=== PATIENT | female | born 1955 | race African-American/Black ===

== ENCOUNTER 2016-12-05 07:17 | Inpatient (IN) ==
--- NOTE | 2016-12-05 07:57 | EKG Report ---
Stationary ECG Study [facility] Test Date: 12/05/2016 7:56:33 AM Pat Name: COMPA AMAYA Department: Room: Gender: F Replenisher: : 1955 Requested by: Justino Eubanks Order Number: [id number] Reading MD: EROS BEARD Intervals [place] Rate: 90 P: 92 NM: 180 QRS: 84 QRSD: 70 T: 84 QT: 347 QTc: 395 Interpretive Statements SINUS RHYTHM WITH OCCASIONAL VENTRICULAR PREMATURE COMPLEXES WITH FREQUENT SUPRAVENTRICULAR PREMATURE COMPLEXES LOW VOLTAGE IN THE CHEST LEADS Electronically Signed On 12-05-16 08:29:36 CDT by EROS BEARD [email or web address]
[2016-12-05 08:26] LABS: Basophils % 0.1 % (0.0-0.8); Eosinophils # 0.1 10*3/uL (0.0-0.87); Eosinophils % 0.6 % (0.00-10.9); Hematocrit 21.9 VOL% (35.7-47.0); Immature Granulocytes % 1.4 %; Immature Granulocytes Absolute 0.23 #; Lymphocytes # 1.1 10*3/uL (1.4-4.0); Lymphocytes % 6.6 % (21.3-54.2); Mean Corpuscular Hemoglobin 28 PG (27-34); Mean Corpuscular Volume 87.6 FL (87-102); Mean Platelet Volume 10.6 FL (9.6-12.0); Monocytes # 1.4 10*3/uL (0.11-0.8); Neutrophils # 13.1 10*3/uL (1.4-7.4); Neutrophils % 82.3 % (38.7-73.9); Platelet Count 189 T/CUMM (130-400); Red Cell Distribution Width 19.7 % (9.3-17.3)
[2016-12-05 09:04] LABS: Albumin 2.8 G/DL (3.4-5.0); Bilirubin,Total 0.9 MG/DL (0.2-1.0); Calcium 8.2 MG/DL (8.5-10.1); Osmolality,Calculated 275.8 MOS/KG (273-304); Potassium 3.4 MMOL/L (3.5-5.1); Total Protein 6.7 G/DL (6.4-8.3)
--- NOTE | 2016-12-05 09:40 | Emergency Department Note ---
Ruddy Rahman Brooke, am scribing for, and in the presence of, Justino Eubanks Jr., MD 07:48. Raimundo Rahman Marvin Jr., MD, personally performed the services described in this documentation, ascribed by Nel Fox in my presence, and it is both accurate and complete 831 . Arrival - Arrival Chief Complaint: Fever Stated Complaint: general ED Nursing Triage Note: started aching and shivering within 30 min of dialysis at [facility] called for transport Mode of Arrival: Stretcher Source: Patient, EMS, RN Notes Reviewed Time Seen by Provider: 12/05/16 07:36 - History of Present Illness HPI Narrative: Patient is a 61 year old female brought into the ED by EMS with c/o aching all over that started a "few" days ago. She says the aching worsened yesterday and that she was unable to sleep last night. She says she has been having some shortness of breath and that she had to sit up on the side of the bed last night. Patient says the aching is better when she does not move and is worsened with movement. Patient went to dialysis this morning and states that she has an "attack" where she started aching, shaking, and went numb." Patient says she was sent here because "dialysis ordered a blood transfusion but they did not have any blood." She also complains of chills but denies any nausea, vomiting, or fever. She did not call her Primary Care Provider, Dr. Elis Garcia, when these problems started. She has PMHx of CHF, Afib, HTN, anxiety, depression , migraines, dyslipidemia, diabetes, asthma, bronchitis, COPD, obstructive sleep apnea, renal failure(dialysis Wednesday, , Wednesday), GERD, and anemia. Patient's Burlap Spreader is Dr. Lima and Dr. Singh oversees her dialysis. Onset (ago): day(s) ("few") Allergies/Adverse Reactions: Allergies Allergy/AdvReac Type Severity Reaction Status Date / Time codeine Allergy Severe Swelling Verified 04/12/16 19:35 of Lip/Tongue/Throat morphine AdvReac Intermediate Abdominal Verified 04/12/16 19:35 Pain olmesartan [From Benicar] AdvReac Unknown/Unable Verified 09/26/16 11:22 to obtain venlafaxine [From Effexor] AdvReac Abdominal Verified 09/26/16 11:22 Pain Home Medications: Home Medications Medication Instructions Recorded Confirmed Type Atorvastatin [Lipitor] 40 mg PO BEDTIME 12/10/15 11/12/16 History Multivitamin [One Daily] 1 tablet PO QAM 12/10/15 11/12/16 History dilTIAZem HCl [Diltiazem 24Hr ER] 300 mg PO QAM 12/10/15 11/12/16 History Montelukast Tab [Singulair Tab] 10 mg PO BEDTIME 02/02/16 11/12/16 History Insulin Detemir [Levemir FlexPen] 8 unit SUBCUT 1900 02/24/16 11/12/16 History Albuterol Sulfate [Ventolin HFA] 2 puff INH QID PRN 06/16/16 11/12/16 History Calcium Acetate 667 mg PO TID W/MEALS 06/16/16 11/12/16 History Ipratropium/Albuterol Sulfate 3 ml PO QID PRN 06/16/16 11/12/16 History [Iprat-Albut 0.5-3(2.5) mg/3 ml] Gabapentin 300 mg PO BEDTIME 09/26/16 11/12/16 History Methocarbamol 750 mg PO BID PRN 09/26/16 11/12/16 History Fluticasone/Salmeterol 250-50 1 puff INH QAM 10/03/16 11/12/16 History [Advair 250-50] Aspirin EC Tab 162.5 mg PO QAM 11/12/16 11/12/16 History Fluticasone Propionate 1 spray BOTH NARES BID PRN 11/12/16 11/12/16 History [Fluticasone 50 mcg Nasal [place]] Magnesium Oxide 400 mg PO QAM 11/12/16 11/12/16 History Pantoprazole Sodium 40 mg PO QAM 11/12/16 11/12/16 History Acetaminophen Tab [Tylenol Tab] 325 mg PO Q4H PRN #0 tablet 11/26/16 Rx Cefdinir [Omnicef] 300 mg PO BID #14 capsule 11/26/16 Rx Docusate Sodium Cap [Colace Cap] 100 mg PO BID PRN #0 capsule 11/26/16 Rx Dornase Jeffrey [Pulmozyme] 2.5 mg RESP TX RT Q12H #60 vial 11/26/16 Rx Metoprolol Tartrate Tab [Lopressor 25 mg PO BID #60 tablet 11/26/16 Rx Tab] Simethicone Chew Tab [Mylanta Gas 125 mg PO BID PRN #0 tablet 11/26/16 Rx Max Str] Review of System - Review of System 12 point system: reviewed and no additional remarkable complaints except as stated - Review of System Constitutional: Present: chills. Absent: fever Respiratory: Present: other (Short of breath). Absent: respiratory distress Gastrointestinal: Absent: nausea, vomiting Musculoskeletal: Present: other (aching all over) Skin: Absent: rash Medical,Surgical,& Family Hx - Medical History Cardio: History of: Cardiac Dysrhythmia (A-FIB), CHF, Hypertension No history of: [place], Pacemaker, PVD Psychological: History of: Anxiety Disorders, Depression Neurology: History of: Migraine No history of: Seizures, TIA HEENT: History of: Eye Problem (GLASSES/CATARCTS), HEENT Problems (SINUSITIS/ ALLERGIES) Endocrine: History of: Diabetes Mellitus (IDDM), Diabetes Mellitus (NIDDM), Dyslipidemia Respiratory: History of: Asthma, Bronchitis, COPD, Obstructive Sleep Apnea ( doesnt wear cpap), Respiratory Problems (DR. SALAZAR AT [place]) No history of: Pulmonary Embolism Renal: History of: Dialysis (Tu, , Sat), Renal Failure, Renal Problems ( DR. SINGH CHRONIC RENAL INSUFFICIENCY) Gastrointestinal: History of: GERD No history of: Hepatitis Musculoskeletal: History of: Back/Neck Problems Hematology: History of: Anemia No history of: Blood Transfusion Reaction Other: No history of: Anesthesia Reactions, Cancer - Surgical History Cardiac Surgeries: Patient Denies: Vascular Access Devices HEENT Surgeries: Surgical HX of: Eye Surgery (FOR CATARACT LT 03/05/15) Reproductive Surgeries: Surgical HX of;: Section (X1), Hysterectomy ( WITH BSO), Tubal Ligation Orthopedic Surgeries: Surgical HX of;: Orthopedic Surgery (RIGHT KNEE SURG), Spinal Surgery ( BACK SURGERY) - Family History Family History: Reports;: Family Diabetes (MOTHER () and brother), Family Heart Disease (GRANDPARENTS/PARENTS), Family Hypertension (PARENTS), Family Stroke (sister) - Social History Smoking Status: Former smoker Exam Physical Examination: General: Well-developed well-nourished, no apparent distress. Head: Normocephalic, atraumatic. Eyes: PERRLA, EOMI. Nose: No obvious acute deformities or discharge. Mouth: No obvious acute injury. Neck: Full range of motion without obvious pain. No midline tender to palpation. Lymphatic: no significant lymphadenopathy noted. Lungs: Clear to auscultation bilaterally, normal and equal air movement bilaterally, no obvious rales or wheezing. Heart: Tachycardic, no obvious mummers. Abdomen: Soft nontender, nondistended, normal active bowel sounds. Skin: No obivous acute lesions noted Musculoskeletal: No gross deformities. Neurological: No focal findings, cranial nerves II through XII grossly normal. Psychiatric: Slightly anxious : Deferred Vital Signs: Vital Signs Temperature 99.6 F 12/05/16 07:24 Pulse Rate 86 12/05/16 07:24 Respiratory Rate 18 12/05/16 08:29 Blood Pressure 120/56 12/05/16 07:24 O2 Sat by Pulse Oximetry 96 12/05/16 07:24 Course Course Narrative: Differential diagnosis, anemia, chronic renal insufficiency, electrolyte abnormalities, influenza, infection - Reevaluation(s) Reevaluation #1: Unchanged. Patient has symptoms of severe chronic end-stage renal disease and is on dialysis, they did not get her dialysis today. Also symptomatic anemia that is worsening. In addition the chronic congestive heart failure is worsening also. I discussed this patient with the hospitalist service and they will admit her. Previous records were ordered and reviewed. Patient was just discharged on November 26 for congestive heart failure, pneumonia and end-stage renal disease. Time: 09:36 Results - Labs CBC & BMP: 12/05/16 08:07 12/05/16 08:07 Lab Results: I have reviewed the patients labs Labs: Laboratory Tests 12/05/16 08:07 WBC 16.0 H RBC 2.50 L Hgb 7.0 L Hct 21.9 L MCV 87.6 MCH 28 MCHC 32.0 RDW 19.7 H Plt Count 189 MPV 10.6 Neut % (Auto) 82.3 H Lymph % (Auto) 6.6 L Nicholas % (Auto) 9.0 Eos % (Auto) 0.6 Baso % (Auto) 0.1 Neut # (Auto) 13.1 H Lymph # (Auto) 1.1 L Nicholas # (Auto) 1.4 H Eos # (Auto) 0.1 Baso # (Auto) 0.0 Immature Gran % 1.4 Nucleated RBC % 0.0 Immature Gran # 0.23 Nucleated RBCs # 0.00 Microbiology 12/05/16 08:16 Nasal Aspirate Influenza Types A,B Antigen (MIRTA) - Final Negative for Influenza A Ag Negative for Influenza B Ag Laboratory Tests 12/05/16 12/05/16 08:07 08:07 Sodium 137 Potassium 3.4 L Chloride 96 L Carbon Dioxide 27 Anion Gap 17.4 H BUN 22 H Creatinine 4.60 H GFR Calculation 11 BUN/Creatinine Ratio 4.00 L Glucose 106 Calculated Osmolality 275.8 Calcium 8.2 L Total Bilirubin 0.90 AST 42 H ALT 30 Alkaline Phosphatase 340 H Troponin I 0.040 Total Protein 6.7 Albumin 2.8 L Globulin 3.9 H Albumin/Globulin Ratio 0.7 L - EKG EKG results: interpreted by ERMD (Heart rate 90, narrow complex QRS complexes without obvious acute ST changes. Normal sinus rhythm. Interpretation nonspecific EKG without obvious acute changes.) - Diagnostic Findings Procedure: Chest x-ray: image reviewed by me (Bilateral pleural effusions, pulmonary edema, preliminary report) Disposition Clinical Impression: End stage renal disease on dialysis, Congestive heart failure, Symptomatic anemia, Body aches, Neutrophilia Case discussed with: patient Disposition: Still a Patient Condition: Stable Time of Disposition: 09:38
--- NOTE | 2016-12-05 09:55 | XRay Report ---
Referring Physician: Justino Eubanks Exam: XR chest 1V portable Date: December 05, 2016 at 7:59 AM Reason: Shortness of breath Comparison: Chest one view portable and CT chest PE study November 25, 2016 Findings: A right-sided dialysis catheter is again in place. The cardiac silhouette is partially obscured but is likely stable in size. There are opacities within both lungs, mainly at the lung bases. This is concerning for pulmonary edema, atelectasis and possibly pneumonia. There could also be component of scarring. No pneumothorax is identified, but there is mild bilateral pleural fluid. The osseous structures appear stable. Impression: There is increased opacification and pleural fluid at the lower lung zones. PROCEDURE INTERPRETED AT [facility] DEPARTMENT OF RADIOLOGY Final Report Signed by: Dr. Roseanna Centeno
[2016-12-05] MEDS ORDERED: SIMETHICONE CHEW 125 MG TABLET PO PRN (10:24)
[2016-12-05] MEDS ORDERED: ALBUTEROL 2.5 MG/3 ML NEB RESP TX PRN (10:24)
[2016-12-05] MEDS ORDERED: ALBUTEROL/IPRATROPIUM 3 ML NEB RESP TX PRN (10:24)
[2016-12-05] MEDS ORDERED: FLUTICASONE 50 MCG NASAL SPRAY 16 GM BOTTLE BOTH NARES PRN (10:24)
[2016-12-05] MEDS ORDERED: DOCUSATE SODIUM 100 MG CAPSULE PO PRN (10:24)
[2016-12-05] MEDS ORDERED: ACETAMINOPHEN 325 MG TABLET PO PRN (10:24)
[2016-12-05] MEDS ORDERED: SODIUM CHLORIDE 0.9% 250 ML IV PRN (10:52)
--- NOTE | 2016-12-05 10:52 | Hospitalist History & Physical ---
Assessment and Plan (1) Pleural effusion Status: Acute Assessment and plan: The patient is admitted to the hospital with fever aching and left pleural effusion. The patient has a recent graft in the left upper arm but no evidence of infection there. The patient has a dialysis catheter tunneled into the left subclavian space. The patient will be admitted to the hospital and given IV antibiotics including vancomycin and gentamicin. Transfusion is ordered. I coordinated care with Dr. Cruz and he is preparing orders for dialysis. Current Visit: Yes (2) Chronic renal failure Status: Chronic Current Visit: No (3) COPD (chronic obstructive pulmonary disease) Status: Chronic Current Visit: No Qualifiers: COPD type: COPD with acute lower respiratory infection Qualified Code(s): J44.0 - Chronic obstructive pulmonary disease with acute lower respiratory infection (4) ESRD on dialysis Status: Chronic Current Visit: No (5) Symptomatic anemia Status: Acute Current Visit: Yes (6) Body aches Status: Acute Current Visit: Yes History of Present Illness Chief complaint: Chills and fever with shortness of breath History of present illness: Ms. Albert is a 61 year old female who dialyzes on Wednesday. The patient presented to for sending his dialysis today and was to receive blood due to anemia. The patient was apparently started on dialysis and began having fever chills and body aching. Dialysis was discontinued and the patient was transferred to the emergency room at [facility]. The patient has some shortness of breath. The patient has pleural effusion on chest x-ray. I reviewed the case with Dr. Cruz and we will admit the patient for further evaluation and treatment including transfusion and dialysis. Home Medications Medication Instructions Recorded Confirmed Type Atorvastatin [Lipitor] 40 mg PO BEDTIME 12/10/15 12/05/16 History Multivitamin [One Daily] 1 tablet PO QAM 12/10/15 12/05/16 History dilTIAZem HCl [Diltiazem 24Hr ER] 300 mg PO QAM 12/10/15 12/05/16 History Montelukast Tab [Singulair Tab] 10 mg PO BEDTIME 02/02/16 12/05/16 History Insulin Detemir [Levemir FlexPen] 8 unit SUBCUT 1900 02/24/16 12/05/16 History Albuterol Sulfate [Ventolin HFA] 2 puff INH QID PRN 06/16/16 12/05/16 History Calcium Acetate 667 mg PO TID W/MEALS 06/16/16 12/05/16 History Ipratropium/Albuterol Sulfate 3 ml PO QID PRN 06/16/16 12/05/16 History [Iprat-Albut 0.5-3(2.5) mg/3 ml] Gabapentin 300 mg PO BEDTIME 09/26/16 12/05/16 History Methocarbamol 750 mg PO BID PRN 09/26/16 12/05/16 History Fluticasone/Salmeterol 250-50 1 puff INH QAM 10/03/16 12/05/16 History [Advair 250-50] Aspirin EC Tab 162.5 mg PO QAM 11/12/16 12/05/16 History Fluticasone Propionate 1 spray BOTH NARES BID PRN 11/12/16 12/05/16 History [Fluticasone 50 mcg Nasal [place]] Magnesium Oxide 400 mg PO QAM 11/12/16 12/05/16 History Pantoprazole Sodium 40 mg PO QAM 11/12/16 12/05/16 History Acetaminophen Tab [Tylenol Tab] 325 mg PO Q4H PRN #0 tablet 11/26/16 12/05/16 Rx Docusate Sodium Cap [Colace Cap] 100 mg PO BID PRN #0 capsule 11/26/16 12/05/16 Rx Dornase Jeffrey [Pulmozyme] 2.5 mg RESP TX RT Q12H #60 vial 11/26/16 12/05/16 Rx Metoprolol Tartrate Tab [Lopressor 25 mg PO BID #60 tablet 11/26/16 12/05/16 Rx Tab] Simethicone Chew Tab [Mylanta Gas 125 mg PO BID PRN #0 tablet 11/26/16 12/05/16 Rx Max Str] Ondansetron Tab [Zofran Tab] 4 mg PO Q4H 12/05/16 12/05/16 History Allergies Allergy/AdvReac Type Severity Reaction Status Date / Time codeine Allergy Severe Swelling Verified 04/12/16 19:35 of Lip/Tongue/Throat morphine AdvReac Intermediate Abdominal Verified 04/12/16 19:35 Pain olmesartan [From Benicar] AdvReac Unknown/Unable Verified 09/26/16 11:22 to obtain venlafaxine [From Effexor] AdvReac Abdominal Verified 09/26/16 11:22 Pain Medical,Surgical,& Family Hx - Medical History Cardio: History of: Cardiac Dysrhythmia (A-FIB), CHF, Hypertension No history of: [place], Pacemaker, PVD Psychological: History of: Anxiety Disorders, Depression Neurology: History of: Migraine No history of: Seizures, TIA HEENT: History of: Eye Problem (GLASSES/CATARCTS), HEENT Problems (SINUSITIS/ ALLERGIES) Endocrine: History of: Diabetes Mellitus (IDDM), Diabetes Mellitus (NIDDM), Dyslipidemia Respiratory: History of: Asthma, Bronchitis, COPD, Obstructive Sleep Apnea ( doesnt wear cpap), Respiratory Problems (DR. SALAZAR AT [facility]) No history of: Pulmonary Embolism Renal: History of: Dialysis (, , Wed), Renal Failure, Renal Problems ( DR. TOPET[facility] CHRONIC RENAL INSUFFICIENCY) Gastrointestinal: History of: GERD No history of: Hepatitis Musculoskeletal: History of: Back/Neck Problems Hematology: History of: Anemia No history of: Blood Transfusion Reaction Other: No history of: Anesthesia Reactions, Cancer - Surgical History Cardiac Surgeries: Patient Denies: Vascular Access Devices HEENT Surgeries: Surgical HX of: Eye Surgery (FOR CATARACT LT 03/05/15) Reproductive Surgeries: Surgical HX of;: Section (X1), Hysterectomy ( WITH BSO), Tubal Ligation Orthopedic Surgeries: Surgical HX of;: Orthopedic Surgery (RIGHT KNEE SURG), Spinal Surgery ( BACK SURGERY) - Family History Family History: Reports;: Family Diabetes (MOTHER () and brother), Family Heart Disease (GRANDPARENTS/PARENTS), Family Hypertension (PARENTS), Family Stroke (sister) - Social History Smoking Status: Former smoker Marital Status: Lives With:: Children Functional capacity: independent ambulation 12 point system: reviewed and no additional remarkable complaints except as stated Exam - Constitutional Vitals: Period Temp Pulse Resp BP Sys/Gonzalez Pulse Ox Last 24 Hr 99.6 F 78-92 18-22 107-120/54-80 96-98 Exam: Constitutional System: Mild distress. No tremulousness. Some dyspnea Head: Normocephalic, atraumatic. Ears, Nose and Throat System: No evidence of Otitis or Mastoiditis. No epistaxis or discharge Eyes System: Pupils equal, round, and reactive. Extraocular muscles intact. Neck: Supple, without adenopathy, 2+ jugular venous distention. No thyromegaly , neck mass, or prior surgery apparent. Respiratory System: Chest reduced breath sounds left and right bases to auscultation. Cardiovascular System: Heart with regular rate and rhythm. No murmur. GI System: Abdomen soft, nontender. Normo active bowel sounds present. Musculoskeletal System: limbs with no pedal edema. Full distal pulses. Neurological System: No discernable sensory deficit. No aphasia Psychiatric System: Conversation is rational Results - Labs CBC & BMP: 12/05/16 08:07 12/05/16 08:07 Lab Results: I have reviewed the past 24 hour labs
[2016-12-05] MEDS ORDERED: VANCOMYCIN INJ 1,000 MG in SODIUM CHLORIDE 0.9% 250 ML IV PRN (11:50)
[2016-12-05] MEDS ORDERED: GENTAMICIN INJ 100 MG in PREMIX 1 EACH IV PRN (11:51)
--- NOTE | 2016-12-05 11:53 | Nephrology Consult Note ---
History of Present Illness Chief complaint: ESRD. SOB History of present illness: Ms. Albert is a 61 year old female with end-stage renal disease and recurrent episodes of volume overload. She presented today for dialysis at the outpatient unit became short of breath and mildly hypotensive and requested transfer to the hospital. Chest x-ray here demonstrates bilateral pleural effusions and evidence of pulmonary volume overload. Her chest exhibits bibasilar crackles and decreased breath sounds over the bases. She has no pericardial rub and no gallop. No edema of the extremities is noted. Her hematocrit is 21%. She reports recent nosebleed. Impression: Volume overload #2 symptomatic anemia #3 end-stage renal disease Plan empiric antibiotics pending blood cultures. Aggressive fluid removal with dialysis. Transfusion of 2 units packed red cells. Home Medications Medication Instructions Recorded Confirmed Type Atorvastatin [Lipitor] 40 mg PO BEDTIME 12/10/15 12/05/16 History Multivitamin [One Daily] 1 tablet PO QAM 12/10/15 12/05/16 History dilTIAZem HCl [Diltiazem 24Hr ER] 300 mg PO QAM 12/10/15 12/05/16 History Montelukast Tab [Singulair Tab] 10 mg PO BEDTIME 02/02/16 12/05/16 History Insulin Detemir [Levemir FlexPen] 8 unit SUBCUT 1900 02/24/16 12/05/16 History Albuterol Sulfate [Ventolin HFA] 2 puff INH QID PRN 06/16/16 12/05/16 History Calcium Acetate 667 mg PO TID W/MEALS 06/16/16 12/05/16 History Ipratropium/Albuterol Sulfate 3 ml PO QID PRN 06/16/16 12/05/16 History [Iprat-Albut 0.5-3(2.5) mg/3 ml] Gabapentin 300 mg PO BEDTIME 09/26/16 12/05/16 History Methocarbamol 750 mg PO BID PRN 09/26/16 12/05/16 History Fluticasone/Salmeterol 250-50 1 puff INH QAM 10/03/16 12/05/16 History [Advair 250-50] Aspirin EC Tab 162.5 mg PO QAM 11/12/16 12/05/16 History Fluticasone Propionate 1 spray BOTH NARES BID PRN 11/12/16 12/05/16 History [Fluticasone 50 mcg Nasal [place]] Magnesium Oxide 400 mg PO QAM 11/12/16 12/05/16 History Pantoprazole Sodium 40 mg PO QAM 11/12/16 12/05/16 History Acetaminophen Tab [Tylenol Tab] 325 mg PO Q4H PRN #0 tablet 11/26/16 12/05/16 Rx Docusate Sodium Cap [Colace Cap] 100 mg PO BID PRN #0 capsule 11/26/16 12/05/16 Rx Dornase Jeffrey [Pulmozyme] 2.5 mg RESP TX RT Q12H #60 vial 11/26/16 12/05/16 Rx Metoprolol Tartrate Tab [Lopressor 25 mg PO BID #60 tablet 11/26/16 12/05/16 Rx Tab] Simethicone Chew Tab [Mylanta Gas 125 mg PO BID PRN #0 tablet 11/26/16 12/05/16 Rx Max Str] Ondansetron Tab [Zofran Tab] 4 mg PO Q4H 12/05/16 12/05/16 History Allergies Allergy/AdvReac Type Severity Reaction Status Date / Time codeine Allergy Severe Swelling Verified 04/12/16 19:35 of Lip/Tongue/Throat morphine AdvReac Intermediate Abdominal Verified 04/12/16 19:35 Pain olmesartan [From Benicar] AdvReac Unknown/Unable Verified 09/26/16 11:22 to obtain venlafaxine [From Effexor] AdvReac Abdominal Verified 09/26/16 11:22 Pain Medical,Surgical,& Family Hx - Medical History Cardio: History of: Cardiac Dysrhythmia (A-FIB), CHF, Hypertension No history of: [place], Pacemaker, PVD Psychological: History of: Anxiety Disorders, Depression Neurology: History of: Migraine No history of: Seizures, TIA HEENT: History of: Eye Problem (GLASSES/CATARCTS), HEENT Problems (SINUSITIS/ ALLERGIES) Endocrine: History of: Diabetes Mellitus (IDDM), Diabetes Mellitus (NIDDM), Dyslipidemia Respiratory: History of: Asthma, Bronchitis, COPD, Obstructive Sleep Apnea ( doesnt wear cpap), Respiratory Problems (DR. SALAZAR AT [place]) No history of: Pulmonary Embolism Renal: History of: Dialysis (Tues, Thurs, Sat), Renal Failure, Renal Problems ( DR. TOPETE CHRONIC RENAL INSUFFICIENCY) Gastrointestinal: History of: GERD No history of: Hepatitis Musculoskeletal: History of: Back/Neck Problems Hematology: History of: Anemia No history of: Blood Transfusion Reaction Other: No history of: Anesthesia Reactions, Cancer - Surgical History Cardiac Surgeries: Patient Denies: Vascular Access Devices HEENT Surgeries: Surgical HX of: Eye Surgery (FOR CATARACT LT 03/05/15) Reproductive Surgeries: Surgical HX of;: Section (X1), Hysterectomy ( WITH BSO), Tubal Ligation Orthopedic Surgeries: Surgical HX of;: Orthopedic Surgery (RIGHT KNEE SURG), Spinal Surgery ( BACK SURGERY) - Family History Family History: Reports;: Family Diabetes (MOTHER () and brother), Family Heart Disease (GRANDPARENTS/PARENTS), Family Hypertension (PARENTS), Family Stroke (sister) - Social History Smoking Status: Former smoker Review of Systems 12 point system: reviewed and no additional remarkable complaints except as stated Exam - Vital Signs Vital signs: Period Temp Pulse Resp BP Sys/Gonzalez Pulse Ox Last 24 Hr 78-79 21-22 107-116/65-80 96 - General Appearance General appearance: well-developed, well-nourished, appears started age EENT: ATNC Neck: no JVD, no thyromegaly, no carotid bruit, supple Respiratory: no kyphosis, no scoliosis Cardiology: no murmurs, no rub, no gallops, no edema, regular rate, regular rhythm, normal S1, normal S2 Gastrointestinal: normoactive bowel sounds Integumentary: no rash, warm and dry Neurologic: no focal deficit, no asterixis, alert and oriented x3, reflexes 2+ and symmetric, gait normal, strength 5/5 Musculoskeletal: no deformities, no erythema, no cyanosis, no clubbing Psychiatric: mood/affect appropriate, cooperative Results - Labs CBC & BMP: 12/05/16 08:07 12/05/16 08:07 Assessment and Plan - Time spent with patient Time spent with patient: Greater than 30 minutes (1) End stage renal disease Status: Chronic Current Visit: No (2) Dyspnea Status: Resolved Assessment and plan: Volume overload and anemia. Dialysis to remove fluid and transfuse. EF of left ventricle 65% with Echo last month Current Visit: No Specialty Discharge - Follow Up or Referrals - Speciality Discharge Instructions Nephrology Instructions: Dialyze to remove volume and transfuse.
--- NOTE | 2016-12-05 11:57 | Dialysis Note ---
Dialysis Note - Dialysis Note Ms. Albert is seen during hemodialysis. We are removing 4 kg of volume in giving 2 units packed red cells. She should feel better after that breathing much better. If she continues to need oxygen she may benefit from mask oxygen rather than nasal prongs with her history of nosebleed.
[2016-12-05] MEDS ORDERED: GENTAMICIN INJ 100 MG in PREMIX 1 EACH IV ONE (12:00)
[2016-12-05] MEDS ORDERED: VANCOMYCIN INJ 1,000 MG in SODIUM CHLORIDE 0.9% 250 ML IV ONE (13:00)
[2016-12-05] MEDS: ENOXAPARIN 30 MG/0.3 ML SYRINGE SUBCUT SCH (15:19)
[2016-12-05] MEDS: ONDANSETRON 4 MG TABLET PO SCH ×4 (15:19→23:50)
[2016-12-05] MEDS: PANTOPRAZOLE 40 MG TABLET PO SCH (15:19)
[2016-12-05] MEDS: CALCIUM ACETATE 667 MG CAPSULE PO SCH ×2 (15:20→18:55)
[2016-12-05] MEDS: INSULIN GLARGINE 100 UNIT/ML SUBCUT SCH (19:05)
[2016-12-05] MEDS: GABAPENTIN 300 MG CAPSULE PO SCH (20:57)
[2016-12-05] MEDS: ATORVASTATIN 40 MG TABLET PO SCH (20:57)
[2016-12-05] MEDS: MONTELUKAST 10 MG TABLET PO SCH (20:58)
[2016-12-05] MEDS: METOPROLOL TARTRATE 100 MG TABLET PO SCH (20:58)
[2016-12-05] MEDS: METHOCARBAMOL 750 MG TABLET PO PRN (21:01)
[2016-12-05] MEDS: DORNASE ALFA 2.5 MG/2.5 ML VIAL RESP TX SCH (21:15)
[2016-12-06] MEDS: ONDANSETRON 4 MG TABLET PO SCH ×6 (04:52→22:43)
[2016-12-06 07:00] LABS: Basophils % 0.3 % (0.0-0.8); Eosinophils # 0.2 10*3/uL (0.0-0.87); Eosinophils % 2.1 % (0.00-10.9); Hematocrit 24.6 VOL% (35.7-47.0); Immature Granulocytes % 0.9 %; Immature Granulocytes Absolute 0.07 #; Lymphocytes # 1.1 10*3/uL (1.4-4.0); Mean Corpuscular HGB Conc 32.5 GM/DL (32-36); Mean Corpuscular Hemoglobin 28 PG (27-34); Mean Platelet Volume 11.4 FL (9.6-12.0); Monocytes # 1.5 10*3/uL (0.11-0.8); Monocytes % 19.1 % (1.7-12.7); Neutrophils # 4.8 10*3/uL (1.4-7.4); Neutrophils % 62.6 % (38.7-73.9); Platelet Count 154 T/CUMM (130-400); Red Blood Count 2.86 MC/CUMM (3.8-5.5); White Blood Count 7.6 T/CUMM (4-12)
[2016-12-06] MEDS: DORNASE ALFA 2.5 MG/2.5 ML VIAL RESP TX SCH ×2 (07:29→19:10)
[2016-12-06 07:40] LABS: Magnesium 1.9 MG/DL (1.8-2.4); Osmolality,Calculated 276.5 MOS/KG (273-304); Potassium 3.6 MMOL/L (3.5-5.1); Troponin I Only 0.039 NG/ML (0.00-0.045)
[2016-12-06 07:54] LABS: Eosinophils 1 % (0-10); Hypochromasia 1+; Lymphocytes 12 % (20-55); Platelet Estimate Normal; Segmented Neutrophils 71 % (50-85); Total Cells Counted 100
[2016-12-06] MEDS ORDERED: ONDANSETRON 4 MG/2 ML VIAL IV ONE (08:23)
[2016-12-06] MEDS: MAGNESIUM OXIDE 400 MG TABLET PO SCH (08:34)
[2016-12-06] MEDS: METOPROLOL TARTRATE 100 MG TABLET PO SCH ×2 (08:34→20:58)
[2016-12-06] MEDS: MULTIVITAMIN (CENTRUM) TABLET PO SCH (08:34)
[2016-12-06] MEDS: CALCIUM ACETATE 667 MG CAPSULE PO SCH ×3 (08:34→17:36)
[2016-12-06] MEDS: ASPIRIN EC 325 MG TABLET PO SCH (08:35)
[2016-12-06] MEDS: FLUTICASONE/SALMETEROL 250-50 DISKUS 14 DOSE INH SCH (08:35)
[2016-12-06] MEDS: DILTIAZEM CD 300 MG CAPSULE PO SCH (08:35)
[2016-12-06] MEDS: PANTOPRAZOLE 40 MG TABLET PO SCH (08:35)
--- NOTE | 2016-12-06 09:00 | EKG Report ---
Stationary ECG Study [facility] Test Date: 12/06/2016 7:36:18 AM Pat Name: COMPA AMAYA Department: Room: 234 Gender: F Watch Commander: : 1955 Requested by: Mathew Kan Order Number: [id number] Reading MD: SADIE SAAB Intervals [place] Rate: 111 P: 257 [place]: 135 QRS: 67 QRSD: 84 T: 95 QT: 338 QTc: 404 Interpretive Statements JUNCTIONAL TACHYCARDIA At 111 bpm NST Electronically Signed On 12-08-16 13:27:23 CDT by SADIE SAAB [email or web address]
--- NOTE | 2016-12-06 10:22 | XRay Report ---
Referring Physician: Mathew Kan Exam: XR chest 1V portable Date: December 06, 2016 at 6:00 AM Reason: Follow-up pleural effusion Comparison: Chest one view portable December 05, 2016 Findings: A right-sided dialysis catheter is again in place. The cardiac silhouette is again enlarged, and there is persistent elevation of the right hemidiaphragm. There are scattered opacities within both lungs. This is concerning for pulmonary edema, atelectasis and possibly pneumonia. There may also be a component of scarring. No pneumothorax is identified, but there may be minimal bilateral pleural fluid. The osseous structures appear stable. Impression: There are again scattered opacities throughout both lungs, but the opacities have improved within both lower lung zones. Decreased bilateral pleural fluid is also suspected. PROCEDURE INTERPRETED AT [facility] DEPARTMENT OF RADIOLOGY Final Report Signed by: Dr. Roseanna Centeno
--- NOTE | 2016-12-06 10:34 | Nephrology Progress Note ---
Nephrology - PN: Subj Interval history: Ms. Albert is seen in follow-up of her end-stage renal disease with volume overload and anemia. She is improved following yesterday's dialysis. She will need to dialyze again tomorrow to get closer to her dry weight. Will ultrafilter her and should be able to further clear her lungs and work toward decreasing her pleural effusions. She will likely be able to be discharged following tomorrow's dialysis. Exam (PN)-Nephrology - Vital Signs Vital signs: Period Temp Pulse Resp BP Sys/Gonzalez Pulse Ox Last 24 Hr 97.2 F-99.5 F 75-132 17-21 100-137/61-89 91-100 - Lab 12/06/16 04:58 12/06/16 04:58 Most recent lab results Calcium 8.0 MG/DL (8.5-10.1) L 12/06/16 04:58 Magnesium 1.9 MG/DL (1.8-2.4) 12/06/16 04:58 Assessment and Plan (1) End stage renal disease Status: Chronic Current Visit: No
--- NOTE | 2016-12-06 11:27 | Hospitalist Progress Note ---
Assessment and Plan (1) End stage renal disease on dialysis Status: Acute Assessment and plan: Impression: 1. End-stage renal disease with pulmonary vascular congestion and effusions. This is improving Plan: Continue dialysis in the morning. She can likely be discharged after that. This note was completed using [employer] voice recognition software. There may be sheet heater errors as a result. Current Visit: Yes Hospitalist: Subjective Interval history: Follow-up end-stage renal disease and pulmonary vascular congestion with effusions. The patient says that she is better. Her chest x-ray looks better as well. I spoke with nephrology. The plan will be to dialyze her one more time in the morning, and then plan on discharge after that. Exam - Constitutional Vitals: Period Temp Pulse Resp BP Sys/Gonzalez Pulse Ox Last 24 Hr 97.2 F-99.5 F 75-132 17-21 100-137/61-89 91-100 Vital signs are noted above. Heart is regular with no murmur. She has bilateral rales but no wheezes. Abdomen is soft and nontender. She is awake and alert Results - Labs CBC & BMP: 12/06/16 04:58 12/06/16 04:58
[2016-12-06] MEDS: ENOXAPARIN 30 MG/0.3 ML SYRINGE SUBCUT SCH (11:49)
[2016-12-06] MEDS: INSULIN GLARGINE 100 UNIT/ML SUBCUT SCH (20:52)
[2016-12-06] MEDS: GABAPENTIN 300 MG CAPSULE PO SCH (20:53)
[2016-12-06] MEDS: MONTELUKAST 10 MG TABLET PO SCH (20:53)
[2016-12-06] MEDS: METHOCARBAMOL 750 MG TABLET PO PRN (20:53)
[2016-12-06] MEDS: ATORVASTATIN 40 MG TABLET PO SCH (20:53)
[2016-12-07] MEDS: ONDANSETRON 4 MG TABLET PO SCH ×4 (03:26→14:02)
[2016-12-07] MEDS: DORNASE ALFA 2.5 MG/2.5 ML VIAL RESP TX SCH (07:08)
[2016-12-07] MEDS: CALCIUM ACETATE 667 MG CAPSULE PO SCH ×2 (09:41→13:56)
--- NOTE | 2016-12-07 10:10 | Dialysis Note ---
Dialysis Note - Dialysis Note seen during hemodialysis. She is ultrafiltering today to get her volume down. She is breathing much better than she did on admission. We have dropped her dry weight and communicated that with the outpatient unit. I think that she will be able to be discharged today after dialysis and can go back to dialysis tomorrow as an outpatient.
--- NOTE | 2016-12-07 12:42 | Discharge Summary ---
Hospital Course - Hospital Course Hospital Course: Ms. Albert presented from dialysis with chills, fever and shortness of breath. She was found to have possible pneumonia was initiated by the admitting physician on vancomycin and gentamicin. She was seen in consultation by nephrology who continued hemodialysis. Patient continued IV antibiotics during her hospital stay with resolution of her fever and elevated white blood cell count. Follow-up chest x-ray showed improving pleural effusion and bilateral opacities. She will continue Levaquin at discharge. By discharge she had met maximum benefit of hospitalization. I spent 40 minutes coordinating this discharge. - Time spent with patient Time with patient DS: Greater than 30 minutes Discharge Plan - Discharge Data Disposition: Disch To Home/Self Care Condition at Discharge: Stable Discharge Diet: advance to your usual diet Activity: resume usual activities as tolerated Hygiene: no restrictions Weight Bearing at Discharge: full weight bearing - Discharge Medications New Levofloxacin Tab [Levaquin Tab] 500 mg PO Q48H #5 tablet Continue Multivitamin [One Daily] 1 tablet PO QAM Atorvastatin [Lipitor] 40 mg PO BEDTIME dilTIAZem HCl [Diltiazem 24Hr ER] 300 mg PO QAM Montelukast Tab [Singulair Tab] 10 mg PO BEDTIME Insulin Detemir [Levemir FlexPen] 8 unit SUBCUT 1900 Albuterol Sulfate [Ventolin HFA] 2 puff INH QID PRN PRN Reason: Shortness Of Breath/Wheezing Calcium Acetate 667 mg PO TID W/MEALS Ipratropium/Albuterol Sulfate [Iprat-Albut 0.5-3(2.5) mg/3 ml] 3 ml PO QID PRN PRN Reason: Shortness Of Breath Gabapentin 300 mg PO BEDTIME Aspirin EC Tab 162.5 mg PO QAM Fluticasone Propionate [Fluticasone 50 mcg Nasal [place]] 1 spray BOTH NARES BID PRN PRN Reason: Allergy Symptoms Magnesium Oxide 400 mg PO QAM Pantoprazole Sodium 40 mg PO QAM Acetaminophen Tab [Tylenol Tab] 325 mg PO Q4H PRN #0 tablet PRN Reason: fever, headache/body aches Docusate Sodium Cap [Colace Cap] 100 mg PO BID PRN #0 capsule PRN Reason: Constipation Dornase Jeffrey [Pulmozyme] 2.5 mg RESP TX RT Q12H #60 vial Metoprolol Tartrate Tab [Lopressor Tab] 25 mg PO BID #60 tablet Ondansetron Tab [Zofran Tab] 4 mg PO Q4H Methocarbamol 750 mg PO BID PRN PRN Reason: MUSCLE SPASMS Fluticasone/Salmeterol 250-50 [Advair 250-50] 1 puff INH QAM Simethicone Chew Tab [Mylanta Gas Max Str] 125 mg PO BID PRN #0 tablet PRN Reason: Gas - Follow Up or Referral - Forms/Instructions Exam - Constitutional Vitals: Period Temp Pulse Resp BP Sys/Gonzalez Pulse Ox Last 24 Hr 98.1 F-99.6 F 65-102 16-20 97-123/56-71 92-99 General appearance: normal weight, no acute distress - Head Head exam: Present: normal inspection, normocephalic, atraumatic - Eye Eye exam: Present: EOMI Pupils: Present: JOSE - ENT ENT exam: Present: normal exam - Neck Neck exam: Present: normal inspection - Respiratory Respiratory exam: Present: clear to auscultation bilaterally. Absent: accessory muscle use, prolonged expiratory phase, wheezes - Cardiovascular Cardiovascular exam: Present: regular rate and rhythm. Absent: bradycardia, irregular rhythm, systolic murmur - GI/Abdominal GI/Abdominal exam: Present: normal bowel sounds. Absent: ascites, distended, hypoactive bowel sounds, tenderness - Extremities Exam Extremities exam: Present: normal inspection Discharge Results Procedures and tests throughout hospitalization: Pending Orders 12/05/16 10:52 Urine Culture Routine 12/05/16 15:13 Blood Culture Routine Labs on day of discharge: Labs from last 24 hours 12/07/16 12/07/16 12/06/16 11:24 07:32 20:51 POC Glucose 100 102 207 H 12/06/16 18:13 POC Glucose 180 H Preliminary micro results at discharge 12/05/16 15:13 Blood Culture - Preliminary Blood No growth at 1 day 12/05/16 15:13 Blood Culture - Preliminary Blood No growth at 1 day DS: Provider Date of admission: 12/05/16 09:58 Primary care physician: . No PCP Attending physician on admission: Mathew Kan MD Consults: 12/05/16 10:52 Consult to Physician [CONS] Routine Comment: esrd Consulting Provider: Octavio Cruz Person Notified: Dr. Cruz Date Notified: 12/05/16 Consult Notification Comment: Dr. Cruz saw patient in dialysis 12/05/16 11:40 Consult to Pharmacy [CONS] Routine Reason for Pharmacy Consult: Dose/Manage Vancomycin Dose/Manage Gentamicin 12/05/16 13:56 Consult to Dietitian [CONS] Routine Reason for Dietitian: Other 12/05/16 14:00 Consult to Pastoral Services [CONS] Routine Comment: Pastoral Screen: Request Manager Supply Visit Pastoral Screen Source of Request: Patient Discharging clinician: Lavern Persaud MD Expected date of discharge: 12/07/16
[2016-12-07] MEDS ORDERED: VANCOMYCIN INJ 1,000 MG in SODIUM CHLORIDE 0.9% 250 ML IV ONE (13:00)
[2016-12-07] MEDS: ASPIRIN EC 325 MG TABLET PO SCH (13:55)
[2016-12-07] MEDS: FLUTICASONE/SALMETEROL 250-50 DISKUS 14 DOSE INH SCH (13:55)
[2016-12-07] MEDS: METHOCARBAMOL 750 MG TABLET PO PRN (13:55)
[2016-12-07] MEDS: ENOXAPARIN 30 MG/0.3 ML SYRINGE SUBCUT SCH (13:56)
[2016-12-07] MEDS: MAGNESIUM OXIDE 400 MG TABLET PO SCH (13:56)
[2016-12-07] MEDS: MULTIVITAMIN (CENTRUM) TABLET PO SCH (13:56)
[2016-12-07] MEDS: DILTIAZEM CD 300 MG CAPSULE PO SCH (13:56)
[2016-12-07] MEDS: PANTOPRAZOLE 40 MG TABLET PO SCH (13:56)
[2016-12-07] MEDS: METOPROLOL TARTRATE 100 MG TABLET PO SCH (14:00)
[2016-12-07 14:01] VITALS: BP 120/60
[2016-12-07] MEDS ORDERED: GENTAMICIN INJ 100 MG in PREMIX 1 EACH IV ONE (15:00)
== END 2016-12-07 16:30 | disposition home or self-care (01) | DRG 190 ==
LOC: EDUNIT# → EDBD → N.ED 07:17 → N.EDINP 09:58 → SUATTDRO 09:58 → N.2E 10:29
PROVIDERS: ADMIT Internal Medicine; ATTEND Internal Medicine

== ENCOUNTER 2016-12-24 10:52 | Inpatient (IN) ==
[2016-12-24] MEDS ORDERED: NITROGLYCERIN 2% OINT 1 INCH/GM PACK TOP STA (11:10)
[2016-12-24] MEDS ORDERED: DILTIAZEM 50 MG/10 ML VIAL IV STA (11:10)
[2016-12-24] MEDS ORDERED: ONDANSETRON 4 MG/2 ML VIAL IV STA (11:10)
[2016-12-24] MEDS ORDERED: DILTIAZEM 50 MG/10 ML VIAL IV ONE (11:26)
[2016-12-24] MEDS ORDERED: NITROGLYCERIN 2% OINT 1 INCH/GM PACK TOP ONE (11:26)
[2016-12-24] MEDS ORDERED: ONDANSETRON 4 MG/2 ML VIAL ONE (11:26)
[2016-12-24 11:41] LABS: Basophils % 0.3 % (0.0-0.8); Eosinophils # 0.2 10*3/uL (0.0-0.87); Eosinophils % 1.6 % (0.00-10.9); Hematocrit 25.5 VOL% (35.7-47.0); Hemoglobin 8.3 GM/DL (12.0-16.0); Immature Granulocytes % 0.7 %; Immature Granulocytes Absolute 0.07 #; Lymphocytes # 1.6 10*3/uL (1.4-4.0); Lymphocytes % 15.8 % (21.3-54.2); Mean Corpuscular HGB Conc 32.5 GM/DL (32-36); Mean Corpuscular Hemoglobin 28 PG (27-34); Mean Corpuscular Volume 85.3 FL (87-102); Mean Platelet Volume 9.8 FL (9.6-12.0); Monocytes # 1.1 10*3/uL (0.11-0.8); Monocytes % 10.2 % (1.7-12.7); NRBC # 0.05 10*3/uL; Neutrophils # 7.4 10*3/uL (1.4-7.4); Neutrophils % 71.4 % (38.7-73.9); Platelet Count 268 T/CUMM (130-400); Red Blood Count 2.99 MC/CUMM (3.8-5.5); Red Cell Distribution Width 18.6 % (9.3-17.3); White Blood Count 10.3 T/CUMM (4-12)
[2016-12-24 11:53] LABS: INR 1.3; PT Patient Result 13.9 SECS
[2016-12-24 12:08] LABS: Partial Thromboplastin Time 85.3 SECS (0-40)
[2016-12-24 12:19] LABS: Albumin 2.6 G/DL (3.4-5.0); Bilirubin,Total 0.7 MG/DL (0.2-1.0); Calcium 8.5 MG/DL (8.5-10.1); Osmolality,Calculated 269.7 MOS/KG (273-304); Potassium 3.4 MMOL/L (3.5-5.1); Thyroid Stimulating Hormone 0.514 uIU/ml (0.358-3.74); Troponin I Only 0.019 NG/ML (0.00-0.045)
--- NOTE | 2016-12-24 12:23 | Emergency Department Note ---
Arrival - Arrival Chief Complaint: Arrhythmia/Palpitations Stated Complaint: heart beating too fast ED Nursing Triage Note: Pt c/o High HR, CP, and SOB since yesterday. Mode of Arrival: Wheelchair Limitations: No Limitations Source: Patient Time Seen by Provider: 12/24/16 11:10 - History of Present Illness HPI Narrative: This 61-year-old black female presents with abrupt onset of rapid heartbeat associated with some shortness of breath and left-sided chest pain. Although she has some mild nausea she denies vomiting or diaphoresis. The patient dialyzes [id number] and had onset of symptoms immediately post dialysis. The patient most recently was hospitalized here 3 weeks ago for pneumonia by the hospitalist service. She does state she has a history of rapid heartbeats in the past and is currently on diltiazem. Also of note she is on thyroid replacement but as far she knows her levels of thyroid hormone are therapeutic. She denies any hemoptysis or pleuritic nature to her pain. Despite her rapid heart rate she is hemodynamically stable. Onset (ago): hour(s) (Patient presents 1 hour post onset of symptoms) Allergies/Adverse Reactions: Allergies Allergy/AdvReac Type Severity Reaction Status Date / Time codeine Allergy Severe Swelling Verified 04/12/16 19:35 of Lip/Tongue/Throat morphine AdvReac Intermediate Abdominal Verified 04/12/16 19:35 Pain olmesartan [From Benicar] AdvReac Unknown/Unable Verified 09/26/16 11:22 to obtain venlafaxine [From Effexor] AdvReac Abdominal Verified 09/26/16 11:22 Pain Home Medications: Home Medications Medication Instructions Recorded Confirmed Type Atorvastatin [Lipitor] 40 mg PO BEDTIME 12/10/15 12/05/16 History Multivitamin [One Daily] 1 tablet PO QAM 12/10/15 12/05/16 History dilTIAZem HCl [Diltiazem 24Hr ER] 300 mg PO QAM 12/10/15 12/05/16 History Montelukast Tab [Singulair Tab] 10 mg PO BEDTIME 02/02/16 12/05/16 History Insulin Detemir [Levemir FlexPen] 8 unit SUBCUT 1900 02/24/16 12/05/16 History Albuterol Sulfate [Ventolin HFA] 2 puff INH QID PRN 06/16/16 12/05/16 History Calcium Acetate 667 mg PO TID W/MEALS 06/16/16 12/05/16 History Ipratropium/Albuterol Sulfate 3 ml PO QID PRN 06/16/16 12/05/16 History [Iprat-Albut 0.5-3(2.5) mg/3 ml] Gabapentin 300 mg PO BEDTIME 09/26/16 12/05/16 History Methocarbamol 750 mg PO BID PRN 09/26/16 12/05/16 History Fluticasone/Salmeterol 250-50 1 puff INH QAM 10/03/16 12/05/16 History [Advair 250-50] Aspirin EC Tab 162.5 mg PO QAM 11/12/16 12/05/16 History Fluticasone Propionate 1 spray BOTH NARES BID PRN 11/12/16 12/05/16 History [Fluticasone 50 mcg Nasal [place]] Magnesium Oxide 400 mg PO QAM 11/12/16 12/05/16 History Pantoprazole Sodium 40 mg PO QAM 11/12/16 12/05/16 History Acetaminophen Tab [Tylenol Tab] 325 mg PO Q4H PRN #0 tablet 11/26/16 12/05/16 Rx Docusate Sodium Cap [Colace Cap] 100 mg PO BID PRN #0 capsule 11/26/16 12/05/16 Rx Dornase Jeffrey [Pulmozyme] 2.5 mg RESP TX RT Q12H #60 vial 11/26/16 12/05/16 Rx Simethicone Chew Tab [Mylanta Gas 125 mg PO BID PRN #0 tablet 11/26/16 12/05/16 Rx Max Str] Ondansetron Tab [Zofran Tab] 4 mg PO Q4H 12/05/16 12/05/16 History Metoprolol Tartrate [Metoprolol 50 mg PO BID 12/24/16 History Tartrate] Review of System - Review of System 12 point system: reviewed and no additional remarkable complaints except as stated - Review of System Constitutional: Present: as per HPI Respiratory: Present: as per HPI Cardiovascular: Present: as per HPI Gastrointestinal: Present: as per HPI Endocrine: Present: as per HPI Medical,Surgical,& Family Hx - Medical History Cardio: History of: Cardiac Dysrhythmia (A-FIB), CHF, Hypertension No history of: PA, Pacemaker, PVD Psychological: History of: Anxiety Disorders, Depression Neurology: History of: Migraine No history of: Seizures, TIA HEENT: History of: Eye Problem (GLASSES/CATARCTS), HEENT Problems (SINUSITIS/ ALLERGIES) Endocrine: History of: Diabetes Mellitus (IDDM), Diabetes Mellitus (NIDDM), Dyslipidemia Respiratory: History of: Asthma, Bronchitis, COPD, Obstructive Sleep Apnea ( doesnt wear cpap), Respiratory Problems (DR. SALAZAR AT [facility]) No history of: Pulmonary Embolism Renal: History of: Dialysis (, , Wed), Renal Failure, Renal Problems ( [facility]) Gastrointestinal: History of: GERD No history of: Hepatitis Musculoskeletal: History of: Back/Neck Problems Hematology: History of: Anemia No history of: Blood Transfusion Reaction Other: No history of: Anesthesia Reactions, Cancer - Surgical History Cardiac Surgeries: Patient Denies: Vascular Access Devices HEENT Surgeries: Surgical HX of: Eye Surgery (FOR CATARACT LT 03/05/15) Reproductive Surgeries: Surgical HX of;: Section (X1), Hysterectomy ( WITH BSO), Tubal Ligation Orthopedic Surgeries: Surgical HX of;: Orthopedic Surgery (RIGHT KNEE SURG), Spinal Surgery ( BACK SURGERY) - Family History Family History: Reports;: Family Diabetes (MOTHER () and brother), Family Heart Disease (GRANDPARENTS/PARENTS), Family Hypertension (PARENTS), Family Stroke (sister) - Social History Smoking Status: Former smoker Exam Physical Examination: GENERAL: Obese black female in no acute distress. HEENT: Normocephalic. No trauma. Moist mucous membranes. EOMI. PERRLA. ENT NML NECK: Supple. No adenopathy. CARDIAC: Regular. No murmurs. Heart rate 145 CHEST: Clear to auscultation. No respiratory distress. O2 sat 94%. Vas-Cath right chest ABDOMEN: Soft. Nontender. Active bowel sounds. EXTREMITIES: No trauma. Normal ROM. No pedal edema. SKIN: No diaphoresis. No rash. NEURO: Alert. Neuro intact no focal deficits. Vital Signs: Vital Signs Temperature 97.6 F 12/24/16 11:52 Pulse Rate 113 H 12/24/16 12:19 Respiratory Rate 24 12/24/16 12:19 Blood Pressure 126/95 12/24/16 12:19 O2 Sat by Pulse Oximetry 100 12/24/16 12:19 Course - Reevaluation(s) Reevaluation #1: Discussed with patient the need for hospitalization given the persistence of her tachycardia and chest pain. - Consultations Consultation #1: Discussed with hospitalist service who will admit for further evaluation treatment. Results - Labs CBC & BMP: 12/24/16 11:20 12/24/16 11:20 Labs: I reviewed the laboratory and noted the expected abnormalities given the patient 's dialysis situation. - Impressions EKG: Atrial flutter at 2-1 at 145 heart rate. Intraventricular conduction delay noted. Diffuse nonspecific ST changes noted. No acute injury pattern noted. - Diagnostic Findings Procedure: Chest x-ray: image reviewed by me, report reviewed by me (Improved pulmonary edema with persistent cardiomegaly and stable right IJ Vas-Cath), CT - chest: image reviewed by me, report reviewed by me (CTA: Negative for PTE. Cardiomegaly with small pericardial effusion noted) Disposition Clinical Impression: Atrial flutter, Chest pain, Dialysis dependent renal failure, Chronic anemia due to CRF, Diabetes Case discussed with: patient, patient's family Disposition: Still a Patient Condition: Guarded Time of Disposition: 13:11
[2016-12-24 12:44] LABS: Free T4 (Free Thyroxine) 1.23 NG/DL (0.76-1.46); Troponin I Only 0.017 NG/ML (0.00-0.045)
[2016-12-24] MEDS ORDERED: ALBUTEROL 2.5 MG/3 ML NEB RESP TX PRN (13:53)
[2016-12-24] MEDS ORDERED: FLUTICASONE 50 MCG NASAL SPRAY 16 GM BOTTLE BOTH NARES PRN (13:53)
--- NOTE | 2016-12-24 14:04 | Hospitalist History & Physical ---
<Kalee Villagomez - Last Filed: 12/24/16 14:01> Assessment and Plan (1) Atrial fibrillation with rapid ventricular response Status: Acute Assessment and plan: Admitted to telemetry. Patient is on Cardizem infusion. Consult Cardiology to assist. Restart metoprolol 50 mg to help with rate control. Will anticoagulant. Continue to monitor Current Visit: No (2) Chest pain Status: Acute Assessment and plan: Admitted to telemetry. serial troponins and EKGs ordered. EKG in the a.m. chest x-ray revealed persistent cardiomegaly. CT negative for PE. Current Visit: No (3) Congestive heart failure Status: Chronic Assessment and plan: Pt. stable. Current Visit: No (4) Diabetes mellitus Status: Chronic Assessment and plan: Pt. blood sugar 57 on initial labs. Accu-Cheks ordered before meals at bedtime. We will continue to monitor blood sugars. Initiate sliding scale insulin if necessary later. Current Visit: No (5) Chronic renal failure Status: Chronic Assessment and plan: Patient has end-stage renal disease and dialyzes Wednesday, , and Wednesday. Renal function stable today. Current Visit: No (6) COPD (chronic obstructive pulmonary disease) Status: Chronic Assessment and plan: We will restart home medications Current Visit: No (7) Anemia Status: Chronic Assessment and plan: Patient has chronic anemia H&H today 8.3 and 25.5. Current Visit: No History of Present Illness Chief complaint: Palpitations History of present illness: Ms. Albert is a 61-year-old black female patient with a history of GERD, anemia, hypo and hypertension, A. fib, CHF, end-stage renal disease, obstructive sleep apnea, COPD, diabetes type 2, pneumonia, and hypothyroidism that presented to the ED today with complaints of rapid heartbeat associated with shortness of breath and midsternal/left chest pain. Patient dialyzes on Wednesday, , and Wednesday and was present at dialysis today when the symptoms began. The patient was just recently hospitalized and treated 3 weeks ago for pneumonia. Patient states that she has had these symptoms before and that she is currently on diltiazem p.o. patient denies any other complaints in the ED at this time. Patient to the hospital for evaluation and treatment. Home Medications Medication Instructions Recorded Confirmed Type Atorvastatin [Lipitor] 40 mg PO BEDTIME 05/10/16 05/25/17 History Multivitamin [One Daily] 1 tablet PO QAM 12/10/15 12/24/16 History dilTIAZem HCl [Diltiazem 24Hr ER] 300 mg PO QAM 12/10/15 12/24/16 History Montelukast Tab [Singulair Tab] 10 mg PO BEDTIME 02/02/16 12/24/16 History Insulin Detemir [Levemir FlexPen] 8 unit SUBCUT 1900 02/24/16 12/24/16 History Calcium Acetate 667 mg PO TID W/MEALS 06/16/16 12/24/16 History Ipratropium/Albuterol Sulfate 3 ml PO QID PRN 06/16/16 12/24/16 History [Iprat-Albut 0.5-3(2.5) mg/3 ml] Gabapentin 300 mg PO BEDTIME 09/26/16 12/24/16 History Methocarbamol 750 mg PO BID PRN 09/26/16 12/24/16 History Fluticasone/Salmeterol 250-50 1 puff INH QAM 10/03/16 12/24/16 History [Advair 250-50] Aspirin EC Tab 162.5 mg PO QAM 11/12/16 12/24/16 History Fluticasone Propionate 1 spray BOTH NARES BID PRN 11/12/16 12/24/16 History [Fluticasone 50 mcg Nasal [place]] Magnesium Oxide 400 mg PO QAM 11/12/16 12/24/16 History Pantoprazole Sodium 40 mg PO QAM 11/12/16 12/24/16 History Acetaminophen Tab [Tylenol Tab] 325 mg PO Q4H PRN #0 tablet 11/26/16 12/24/16 Rx Furosemide [Furosemide] 160 mg PO BID 12/24/16 12/24/16 History Gabapentin [Gabapentin] 100 mg PO QAM 12/24/16 12/24/16 History Metoprolol Tartrate [Metoprolol 50 mg PO BID 12/24/16 12/24/16 History Tartrate] hydrALAZINE TAB [Apresoline Tab] 100 mg PO TID 12/24/16 12/24/16 History raNITIdine HCl [Ranitidine HCl] 150 mg PO BID 12/24/16 12/24/16 History Allergies Allergy/AdvReac Type Severity Reaction Status Date / Time codeine Allergy Severe Swelling Verified 04/12/16 19:35 of Lip/Tongue/Throat morphine AdvReac Intermediate Abdominal Verified 04/12/16 19:35 Pain olmesartan [From Benicar] AdvReac Unknown/Unable Verified 09/26/16 11:22 to obtain venlafaxine [From Effexor] AdvReac Abdominal Verified 09/26/16 11:22 Pain Medical,Surgical,& Family Hx - Medical History Cardio: History of: Cardiac Dysrhythmia (A-FIB), CHF, Hypertension No history of: [place], Pacemaker, PVD Psychological: History of: Anxiety Disorders, Depression Neurology: History of: Migraine No history of: Seizures, TIA HEENT: History of: Eye Problem (GLASSES/CATARCTS), HEENT Problems (SINUSITIS/ ALLERGIES) Endocrine: History of: Diabetes Mellitus (IDDM), Diabetes Mellitus (NIDDM), Dyslipidemia Respiratory: History of: Asthma, Bronchitis, COPD, Obstructive Sleep Apnea ( doesnt wear cpap), Respiratory Problems ([facility]) No history of: Pulmonary Embolism Renal: History of: Dialysis (Tues, Th, Sat), Renal Failure, Renal Problems ( [facility]) Gastrointestinal: History of: GERD No history of: Hepatitis Musculoskeletal: History of: Back/Neck Problems Hematology: History of: Anemia No history of: Blood Transfusion Reaction Other: No history of: Anesthesia Reactions, Cancer - Surgical History Cardiac Surgeries: Patient Denies: Vascular Access Devices HEENT Surgeries: Surgical HX of: Eye Surgery (FOR CATARACT LT 03/05/15) Reproductive Surgeries: Surgical HX of;: Section (X1), Hysterectomy ( WITH BSO), Tubal Ligation Orthopedic Surgeries: Surgical HX of;: Orthopedic Surgery (RIGHT KNEE SURG), Spinal Surgery ( BACK SURGERY) - Family History Family History: Reports;: Family Diabetes (MOTHER () and brother), Family Heart Disease (GRANDPARENTS/PARENTS), Family Hypertension (PARENTS), Family Stroke (sister) - Social History Smoking Status: Former smoker Marital Status: Single Lives With:: Children - Constitutional Constitutional: Present: weakness. Absent: chills, fever(s), frequent falls - EENT Eyes: Present: loss of vision Ears: Absent: decreased hearing Nose, mouth and throat: Present: epistaxis. Absent: dysphagia - Cardiovascular Cardiovascular: Present: chest pain at rest, dyspnea, dyspnea on exertion. Absent: edema - Respiratory Respiratory: Present: dyspnea, dyspnea on exertion - Gastrointestinal Gastrointestinal: Absent: abdominal pain, diarrhea, nausea, vomiting - Genitourinary Genitourinary: Present: difficulty urinating, other (pt. oliguria) - Musculoskeletal Musculoskeletal: Absent: limited range of motion - Neurological Neurological: Absent: confusion, dizziness - Psychiatric Psychiatric: Absent: anxiety, confusion - Endocrine Endocrine: Present: cold intolerance, fatigue Exam - Constitutional Vitals: Period Temp Pulse Resp BP Sys/Gonzalez Pulse Ox Last 24 Hr 97.6 F-97.6 F 113-147 22-24 126-138/95-99 94-100 General appearance: no acute distress - Head Head exam: Present: normal inspection, normocephalic - Eye Eye exam: Present: EOMI. Absent: periorbital swelling Pupils: Present: JOSE. Absent: dilated - Respiratory Respiratory exam: Present: clear to auscultation bilaterally. Absent: wheezes - Cardiovascular Cardiovascular exam: Present: irregular rhythm - GI/Abdominal GI/Abdominal exam: Present: normal bowel sounds, soft. Absent: tenderness - Extremities Exam Extremities exam: Present: normal capillary refill, full ROM. Absent: edema - Back Exam Back exam: Present: normal inspection - Neurological Exam Neurological exam: Present: alert, oriented X3 - Psychiatric Psychiatric exam: Present: normal affect, normal mood - Skin Skin exam: Present: normal color, warm, dry Results - Labs CBC & BMP: 12/24/16 11:20 12/24/16 11:20 Lab Results: I have reviewed the past 24 hour labs <Elif Brennan - Last Filed: 12/24/16 17:20> History of Present Illness History of present illness: PCP: Dr. Elis Lima Cardiology: Dr. Pritchett Ms. Albert is a 61 year old female with history of afib, ESRD on HD T,Th,Sat, CEE , and COPD who presented to the hospital with complaints of 2 days of chest pain. Pt reports pain was initially intermittent but today has been more persistent. She describes it as a sharp pain rated 10 out of 10 without radiation. She says leaning forward makes her pain feel better and leaning back makes it worse. She does report reproducible chest pain but is different from the pain that she is feeling deep in her chest. It is not associated with eating. It does worsen with taking a deep breath. It was associated with shortness of breath and nausea. She does not report any diaphoresis or vomiting. She reports a cough that was productive of brownish sputum and reports postnasal drip. No fever at home per patient but today she had a low- grade temp of 100.6. She denies any changes with her medications and reports compliance. Today after having dialysis she was sent to the hospital for further evaluation and treatment. A 10 point review of systems was reviewed with the patient and was otherwise unremarkable. For past medical history, past surgical history, meds, allergies, family history , social history please see the H&P by the nurse practitioner and I agree. PE: Vitals reviewed GEN: A and O x 3 with mild- moderate abd retractions and speaking in phrases HEENT: PERRL, EOMI, clear sclera NECK: Supple. SC dialysis tunnel line on right. No LAD, thyromegaly appreciated CV: irreg irreg rate and rhythm, tachycardia, no obvious M, R, G LUNGS: CTAB, diminished at the bases, nonlabored ABD: soft, NT, ND, +BS EXT: Warm no c/c/e NEURO: nonfocal Labs/ Investigative studies reviewed. EKG shows afib at approximately 130 bpm. A/P: 1. Afib with RVR. On cardizem drip. Given Digoxin 0.5mg IV x 1. Cont telemetry. Cardiology to see. TSH normal. Follow troponin 2. Fever in patient on HD with SC line and recent pneumonia- Check blood and sputum cultures. Start empiric IV antibiotics. Mucinex. Bronchodilators 3. ESRD on HD - HD per renal 4. COPD 5. DM2- I.S.S. for now 6. Hypothyroidism- resume home meds DVT prophylaxis- Heparin SQ D/W nurse, charge nurse, [employer], pt and family. All questions answered. Exam - Constitutional Vitals: Period Temp Pulse Resp BP Sys/Gonzalez Pulse Ox Last 24 Hr 97.6 F-100.6 F 113-147 18- 126-138/65-99 92-100 Results - Labs CBC & BMP: 12/24/16 11:20 12/24/16 11:20
--- NOTE | 2016-12-24 14:07 | CT Report ---
Exam: CT chest with contrast, PE study Date: 12/24/2016 Comparison: 11/25/2016 Reason: Chest pain, shortness of breath Technique: Axial images of the chest were obtained after administration of 80 cc of IV Omnipaque 350 intravenous contrast. Coronal reformatted images were also acquired. The study was performed per pulmonary embolism protocol. Total DLP: 352.9 Findings: The heart remains enlarged with small pericardial effusion and coronary artery calcifications. Coronary artery calcifications are noted with no evidence of aortic dissection or pulmonary emboli. Right IJ venous dialysis catheter with no significant change in size and nodes in the chest. Fatty infiltration of the liver with prior cholecystectomy. Degenerative changes are noted. Persistent atelectasis/infiltration with diffuse groundglass opacities. The majority of the findings appear less prominent. Progressive diffuse parenchymal findings in the inferior anterior right upper lobe/right middle lobe. No significant pleural effusions. Impression: No evidence of pulmonary embolism. Cardiomegaly with interval development of small pericardial effusion. Persistent coronary artery catheterizations with right IJ venous dialysis catheter. Improved pulmonary edema with residual subsegmental atelectasis. Possible superimposed pneumonia especially in the inferior right upper lobe/right middle lobe where the atelectatic findings appear progressive. Follow-up chest x-ray may be helpful for further evaluation. This CT exam was performed using one or more the following dose reduction techniques: Automated exposure control, adjustment of the MA and/or KV according to patient size, or use of iterative reconstruction technique. PROCEDURE INTERPRETED AT [facility] DEPARTMENT OF RADIOLOGY Final Report Signed by: Dr. Fabienne Arevalo
--- NOTE | 2016-12-24 14:07 | XRay Report ---
XR chest 2V Date: 12/24/2016 11:45 AM History: Chest pain, shortness of breath Comparison: 12/06/2016 Technique: PA and lateral chest Findings: Persistent cardiomegaly with right IJ venous dialysis catheter. Reduction in the diffuse parenchymal findings in the lungs. Residual subsegmental atelectasis which appears progressive in the right midlung zone. Stable mediastinum and osseous structures. Impression: Persistent cardiomegaly with stable right IJ venous dialysis catheter. Improved pulmonary edema. Residual subsegmental atelectasis which appears progressive in the right midlung zone. PROCEDURE INTERPRETED AT [facility] DEPARTMENT OF RADIOLOGY Final Report Signed by: Dr. Fabienne Arevalo
[2016-12-24] MEDS ORDERED: DOCUSATE SODIUM 100 MG CAPSULE PO PRN (15:25)
--- NOTE | 2016-12-24 15:27 | EKG Report ---
Stationary ECG Study [facility] ER Test Date: 12/24/2016 11:03:55 AM Pat Name: COMPA AMAYA Department: Room: 270 Gender: F Java Tech Lead: : 1955 Requested by: Kalee Villagomez Order Number: [id number] Reading MD: ANGELA GUZMAN Intervals [place] Rate: 144 P: 112 NE: 119 QRS: 72 QRSD: 125 T: 164 QT: 286 QTc: 369 Interpretive Statements Supraventricular tachycardia, cannot rule out atypical flutter NONSPECIFIC INTRAVENTRICULAR CONDUCTION DELAY Electronically Signed On 12-27-16 15:24:09 CDT by ANGELA GUZMAN [email or web address]
[2016-12-24 16:42] LABS: Troponin I Only < 0.015 NG/ML (0.00-0.045)
[2016-12-24] MEDS ORDERED: ADENOSINE 6 MG/2 ML VIAL ONE (16:49)
[2016-12-24] MEDS ORDERED: DIGOXIN 0.5 MG/2 ML AMP IV ONE (17:06)
[2016-12-24] MEDS: CALCIUM ACETATE 667 MG CAPSULE PO SCH (17:17)
[2016-12-24] MEDS ORDERED: POTASSIUM CHLORIDE 20 MEQ TABLET PO ONE (17:26)
[2016-12-24] MEDS ORDERED: POTASSIUM CHLORIDE 20 MEQ TABLET PO PRN (17:27)
[2016-12-24] MEDS ORDERED: MAGNESIUM SULF RIDER 4 GM in PREMIX 1 EACH IV PRN (17:28)
[2016-12-24] MEDS ORDERED: MAGNESIUM SULF RIDER 2 GM in PREMIX 1 EACH IV PRN (17:28)
[2016-12-24 18:36] LABS: Magnesium 1.8 MG/DL (1.8-2.4); Phosphorous 1.8 MG/DL (2.5-4.9)
[2016-12-24] MEDS ORDERED: SODIUM CHLORIDE 0.9% 100 ML IV ONE (19:28)
[2016-12-24 20:02] LABS: Troponin I Only < 0.015 NG/ML (0.00-0.045)
[2016-12-24 21:26] LABS: Troponin I Only < 0.015 NG/ML (0.00-0.045)
[2016-12-24] MEDS: ATORVASTATIN 40 MG TABLET PO SCH (21:54)
[2016-12-24] MEDS: MONTELUKAST 10 MG TABLET PO SCH (21:54)
[2016-12-24] MEDS: GABAPENTIN 300 MG CAPSULE PO SCH (21:55)
[2016-12-24] MEDS: METOPROLOL TARTRATE 50 MG TABLET PO SCH (21:55)
[2016-12-24] MEDS: cefTRIAXone 1,000 MG VIAL IM SCH (21:56)
[2016-12-25 05:24] LABS: Basophils % 0.4 % (0.0-0.8); Eosinophils # 0.1 10*3/uL (0.0-0.87); Eosinophils % 1.2 % (0.00-10.9); Hematocrit 23.1 VOL% (35.7-47.0); Hemoglobin 7.4 GM/DL (12.0-16.0); Immature Granulocytes % 0.8 %; Immature Granulocytes Absolute 0.08 #; Lymphocytes # 1.4 10*3/uL (1.4-4.0); Lymphocytes % 13.7 % (21.3-54.2); Mean Corpuscular Hemoglobin 27 PG (27-34); Mean Corpuscular Volume 85.6 FL (87-102); Monocytes # 1.3 10*3/uL (0.11-0.8); Monocytes % 12.8 % (1.7-12.7); Neutrophils # 7.1 10*3/uL (1.4-7.4); Neutrophils % 71.1 % (38.7-73.9); Platelet Count 235 T/CUMM (130-400); Red Cell Distribution Width 18.8 % (9.3-17.3)
[2016-12-25 05:57] LABS: Calcium 8.1 MG/DL (8.5-10.1); Magnesium 1.9 MG/DL (1.8-2.4); Osmolality,Calculated 267.1 MOS/KG (273-304); Potassium 4.9 MMOL/L (3.5-5.1); Risk Ratio 2.24; Thyroid Stimulating Hormone 0.641 uIU/ml (0.358-3.74); VLDL CHOLESTEROL 13.8 MG/DL
--- NOTE | 2016-12-25 07:19 | EKG Report ---
Stationary ECG Study [facility] Test Date: 12/25/2016 7:18:11 AM Pat Name: COMPA AMAYA Department: Room: 270 Gender: F Bottom Buffer: MURIEL : 1955 Requested by: Kalee Villagomez Order Number: [id number] Reading MD: ANGELA GUZMAN Intervals [place] Rate: 62 P: 999 OK: 0 QRS: 103 QRSD: 143 T: 179 QT: 405 QTc: 409 Interpretive Statements ATRIAL FLUTTER MARKED RIGHT AXIS DEVIATION Electronically Signed On 12-27-16 15:41:01 CDT by ANGELA GUZMAN [email or web address]
--- NOTE | 2016-12-25 08:14 | EKG Report ---
Stationary ECG Study [facility] Test Date: 12/24/2016 4:57:59 PM Pat Name: COMPA AMAYA Department: Room: 270 Gender: F Spanisher: : 1955 Requested by: Kalee Villagomez Order Number: [id number] Reading MD: ANGELA GUZMAN Intervals [place] Rate: 131 P: 999 OK: 0 QRS: 80 QRSD: 78 T: 132 QT: 324 QTc: 401 Interpretive Statements ATRIAL FIBRILLATION WITH RAPID VENTRICULAR RESPONSE NONSPECIFIC T WAVE ABNORMALITY Electronically Signed On 12-27-16 15:28:42 CDT by ANGELA GUZMAN [email or web address]
[2016-12-25] MEDS: METOPROLOL TARTRATE 50 MG TABLET PO SCH ×2 (10:27→22:02)
[2016-12-25] MEDS: MULTIVITAMIN (CENTRUM) TABLET PO SCH (10:27)
[2016-12-25] MEDS: CALCIUM ACETATE 667 MG CAPSULE PO SCH ×3 (10:27→17:16)
[2016-12-25] MEDS: MAGNESIUM OXIDE 400 MG TABLET PO SCH (10:27)
[2016-12-25] MEDS: GABAPENTIN 100 MG CAPSULE PO SCH (10:48)
[2016-12-25] MEDS ORDERED: ALBUTEROL/IPRATROPIUM 3 ML NEB RESP TX PRN (10:53)
[2016-12-25] MEDS ORDERED: METHOCARBAMOL 750 MG TABLET PO PRN (10:53)
--- NOTE | 2016-12-25 10:59 | Hospitalist Progress Note ---
Hospitalist: Subjective Interval history: Pt states SOB much improved. She states she has mild deep sharp chest pain. Reproducible chest pain resolved. No fever. No nausea or vomiting. She converted to sinus rhythm overnight. Exam - Constitutional Vitals: Period Temp Pulse Resp BP Sys/Gonzalez Pulse Ox Last 24 Hr 97.6 F-100.6 F 62-147 18-25 97-165/54-99 92-100 Exam: GEN: A and O x 3, nonlabored speaking in full sentences HEENT: clear sclera NECK: Supple. SC dialysis tunnel line on right. No JVD CV: RRR, no obvious M, R, G LUNGS: CTAB, diminished at the bases, nonlabored ABD: soft, NT, ND, +BS EXT: Warm no c/c/e NEURO: nonfocal Results - Labs CBC & BMP: 12/25/16 04:32 12/25/16 04:32 - Impressions 1. Afib with RVR s/p conversion- HR currently at 62 and is in sinus by telemetry. DC cardizem drip. Restarted on metoprolol. s/p Digoxin 0.5mg IV x 1. Cont telemetry. 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 TSH normal. Troponin negative so far. 2. Hypokalemia- replaced. 3. Hypophosphatemia- replace IV. 4. Chronic diastolic CHF- fluid management with HD 5. Fever in patient on HD with SC line and recent pneumonia- F/U blood and sputum cultures. Cont empiric IV antibiotics. Mucinex. Bronchodilators 6. ESRD on HD - HD per renal 7. COPD with chronic resp failure on 2L NC- bronchodilators, inhalers. oxygen 8. DM2- I.S.S. for now 9. Hypothyroidism- Cont home meds 10. Anemia likely due to anemia of chronic disease- H/H slightly down but asymptomatic at this time. Will recheck and possible transfuse with HD. DVT prophylaxis- Heparin SQ D/W pt and all questions answered.
[2016-12-25] MEDS ORDERED: DILTIAZEM CD 300 MG CAPSULE PO SCH (11:00)
[2016-12-25] MEDS ORDERED: SODIUM PHOSPHATE INJ 30 MMOL in SODIUM CHLORIDE 0.9% 250 ML IV ONE (12:00)
--- NOTE | 2016-12-25 13:35 | Cardiology Consult Note ---
Assessment and Plan - Time spent with patient Time spent with patient: Greater than 30 minutes (1) Diabetes mellitus Status: Chronic Assessment and plan: SEE PLAN OF CARE LISTED BELOW Current Visit: No (2) Chronic atrial fibrillation Status: Chronic Assessment and plan: SEE PLAN OF CARE LISTED BELOW Current Visit: No (3) Chronic renal failure Status: Chronic Current Visit: No (4) CKD (chronic kidney disease) stage 5, GFR less than 15 ml/min Status: Chronic Assessment and plan: SEE PLAN OF CARE LISTED BELOW Current Visit: No (5) Anemia in CKD (chronic kidney disease) Status: Chronic Assessment and plan: SEE PLAN OF CARE LISTED BELOW Current Visit: No (6) Pneumonia Status: Acute Assessment and plan: SEE PLAN OF CARE LISTED BELOW Current Visit: No Qualifiers: Pneumonia type: due to unspecified organism (7) Hypertension Status: Chronic Assessment and plan: SEE PLAN OF CARE LISTED BELOW Current Visit: No Qualifiers: Hypertension type: essential hypertension Qualified Code(s): I10 - Essential (primary) hypertension (8) Chest pain Status: Acute Assessment and plan: SEE PLAN OF CARE LISTED BELOW Current Visit: No History of Present Illness - Data of Consult Patient: known to practice within the last 3 years Consult date: 12/25/16 Requesting Physician: Elif Brennan - Consult Narrative Reason for consult: Atrial fiB with RVR History of present illness: CROZER: DR. PRITCHETT Ms. Albert, 61BF, routinely followed by Dr. Pritchett. Risk factors include: Hypertension, dyslipidemia, diabetes, sedentary lifestyle. History of end- stage renal disease on dialysis (Wednesday, and Wednesday), atrial flutter , pulmonary hypertension, obstructive sleep apnea. Patient presented to the emergency department of [facility] December 24, 2016 after he began to experience shortness of breath, heart pounding while at dialysis. Patient states that she began to feel unwell and for this reason was brought to the ED. upon arrival, heart rate noted to be 144 bpm. As her heart rate improved, so did her symptoms. CT chest reveals possible superimposed pneumonia in the inferior right upper lobe, right middle lobe. At this time, she is feeling better and is maintained on Cardizem IV 5 mg/h. Chest pain occurs with movements and palpation of the chest wall. According to Dr. Pritchett' s note, he has had chronic chest pain for many years. Cardiac biomarkers are negative. EKG does not reveal an ischemic event. Patient is severely anemic, chronic condition. I do not see that nephrology has been consulted and therefore I will consult if she does dialyze Wednesday, and Wednesday. Also, I will transfuse 2 units of packed red blood cells today. Echocardiogram has been ordered. She is not a candidate for anticoagulation given the severity of her anemia. Hopefully, we will discontinue IV Cardizem. This will be easier once she has been transfused. Start oral agents for rate control ASSESSMENT/PLAN: 1. ATRIAL FIBRILLATION WITH RVR - Wean off Cardizem as able start oral agents. Rate should improve with transfusion 2. HYPERTENSION - adjust medications accordingly during the hospital stay 3. DYSLIPIDEMIA - continue lipid-lowering agent. LDL 30 4 DIABETES - continue current plan of care. Avoiding JAHAIRA inhibitor due to fear of worsening renal insufficiency 5. CEE - history of sleep apnea and uses device occasionally. 6. CHEST PAIN - reproducible to light palpation. 7. ESRD - consult nephrology for dialysis 8. ANEMIA - transfuse 2 units packed red blood 9. SUSPECTED CAP - start Levaquin, follow CBC. CC: Elif Brennan MD - Home Medications and Allergies Home Medications: Home Medications Medication Instructions Recorded Confirmed Type Atorvastatin [Lipitor] 40 mg PO BEDTIME 12/10/15 12/24/16 History Multivitamin [One Daily] 1 tablet PO QAM 12/10/15 12/24/16 History dilTIAZem HCl [Diltiazem 24Hr ER] 300 mg PO QAM 12/10/15 12/24/16 History Montelukast Tab [Singulair Tab] 10 mg PO BEDTIME 02/02/16 12/24/16 History Insulin Detemir [Levemir FlexPen] 8 unit SUBCUT 1900 02/24/16 12/24/16 History Calcium Acetate 667 mg PO TID W/MEALS 06/16/16 12/24/16 History Ipratropium/Albuterol Sulfate 3 ml PO QID PRN 06/16/16 12/24/16 History [Iprat-Albut 0.5-3(2.5) mg/3 ml] Gabapentin 300 mg PO BEDTIME 09/26/16 12/24/16 History Methocarbamol 750 mg PO BID PRN 09/26/16 12/24/16 History Fluticasone/Salmeterol 250-50 1 puff INH QAM 10/03/16 12/24/16 History [Advair 250-50] Aspirin EC Tab 162.5 mg PO QAM 11/12/16 12/24/16 History Fluticasone Propionate 1 spray BOTH NARES BID PRN 11/12/16 12/24/16 History [Fluticasone 50 mcg Nasal [place]] Magnesium Oxide 400 mg PO QAM 11/12/16 12/24/16 History Pantoprazole Sodium 40 mg PO QAM 11/12/16 12/24/16 History Acetaminophen Tab [Tylenol Tab] 325 mg PO Q4H PRN #0 tablet 11/26/16 12/24/16 Rx Furosemide [Furosemide] 160 mg PO BID 12/24/16 12/24/16 History Gabapentin [Gabapentin] 100 mg PO QAM 12/24/16 12/24/16 History Metoprolol Tartrate [Metoprolol 50 mg PO BID 12/24/16 12/24/16 History Tartrate] hydrALAZINE TAB [Apresoline Tab] 100 mg PO TID 12/24/16 12/24/16 History raNITIdine HCl [Ranitidine HCl] 150 mg PO BID 12/24/16 12/24/16 History Allergies/Adverse Reactions: Allergies Allergy/AdvReac Type Severity Reaction Status Date / Time codeine Allergy Severe Swelling Verified 04/12/16 19:35 of Lip/Tongue/Throat morphine AdvReac Intermediate Abdominal Verified 04/12/16 19:35 Pain olmesartan [From Benicar] AdvReac Unknown/Unable Verified 09/26/16 11:22 to obtain venlafaxine [From Effexor] AdvReac Abdominal Verified 09/26/16 11:22 Pain Review of systems: REVIEW OF SYSTEMS: - Constitutional Constitutional: Present: Fatigue. Absent: syncope, anorexia, night sweats - EENT Eyes: Absent: blurry vision, loss of vision, diplopia Ears: Absent: decreased hearing, ear pain, ear discharge - Cardiovascular Cardiovascular: Present: chest pain with palpation. Dyspnea on exertion. Denies edema. Frequent palpitations. Absent: chest pain with deep breath, claudication - Respiratory Respiratory: Present: CHERRY, cough. Absent: wheezing, hemoptysis, change in phlegm color - Gastrointestinal Gastrointestinal: Present: constipation. Absent: abdominal pain, hematemesis , hematochezia, melena, change in bowel habits, nausea - Genitourinary Genitourinary: Absent: difficulty urinating, dysuria, urinary hesitancy, flank pain - Musculoskeletal Musculoskeletal: Present: back pain Absent: joint swelling, muscle cramps, muscle weakness - Neurological Neurological: Present: normal gait without frequent falls. Absent: dizziness, hemiparesis - Psychiatric Psychiatric: Absent: anxiety, depression, difficulty concentrating - Endocrine Endocrine: Present: fatigue. Absent: cold intolerance, heat intolerance, polyuria, polyphagia, polydipsia - Hematologic/Lymphatic Hematologic/Lymphatic: Present: easy bruising. Absent: easy bleeding -Integumentary Integumentary: Absent: lesions, rashes, skin breakdown Medical,Surgical,& Family Hx - Medical History Cardio: History of: Cardiac Dysrhythmia (A-FIB), CHF, Hypertension No history of: CAD, CO, Pacemaker, PVD Psychological: History of: Anxiety Disorders, Depression Neurology: History of: Migraine No history of: Seizures, TIA HEENT: History of: Eye Problem (GLASSES/CATARCTS), HEENT Problems (SINUSITIS/ ALLERGIES) Endocrine: History of: Diabetes Mellitus (IDDM), Diabetes Mellitus (NIDDM), Dyslipidemia Respiratory: History of: Asthma, Bronchitis, COPD, Obstructive Sleep Apnea ( doesnt wear cpap), Respiratory Problems ([facility]) No history of: Pulmonary Embolism Renal: History of: Dialysis (, , Wed), Renal Failure, Renal Problems ( DR. TOPETE [facility] INSUFFICIENCY) Gastrointestinal: History of: GERD No history of: Hepatitis Musculoskeletal: History of: Back/Neck Problems Hematology: History of: Anemia No history of: Blood Transfusion Reaction Other: No history of: Anesthesia Reactions, Cancer - Surgical History Cardiac Surgeries: Patient Denies: Vascular Access Devices HEENT Surgeries: Surgical HX of: Eye Surgery (FOR CATARACT LT 03/05/15) Reproductive Surgeries: Surgical HX of;: Section (X1), Hysterectomy ( WITH BSO), Tubal Ligation Orthopedic Surgeries: Surgical HX of;: Orthopedic Surgery (RIGHT KNEE SURG), Spinal Surgery ( BACK SURGERY) - Family History Family History: Reports;: Family Diabetes (MOTHER () and brother), Family Heart Disease (GRANDPARENTS/PARENTS), Family Hypertension (PARENTS), Family Stroke (sister) - Social History Smoking Status: Former smoker Frequency of Alcohol Use: None Type of Drug Use: None Physical Examination Vital Signs Temp Pulse Resp BP Pulse Ox 97.6 F 147 H 22 138/99 94 L 12/24/16 11:00 12/24/16 11:00 12/24/16 11:00 12/24/16 11:00 12/24/16 11:00 General: [Appears well with no apparent distress.] [Pleasant and cooperative. ] [Appears comfortable.] HEENT: [PERRL, normocephalic, atraumatic. Mucous membranes moist. No jaundice noted. Conjunctiva moist and clear, sclerae anicteric] Neck: No JVD/HJR, no thyromegaly or lymphadenopathy noted. No carotid bruit appreciated Cardiac: [Irregularly irregular rhythm controlled rate. No obvious murmur rub or gallop. Lungs: [Clear to auscultation without accessory muscle use to assist the respiratory pattern.] Oxygen in use via nasal cannula Abdomen: Soft, bowel sounds normoactive. Nontender and nondistended. No abdominal bruit or thrill noted. No masses noted. Musculoskeletal: No fluid collection. Decreased range of motion is noted. Extremities: No clubbing, cyanosis noted. [ No edema noted.] Upper extremity pulses 2+. Lower extremity pulses 2+. Capillary refill less than 3 seconds. Skin: No unusual lesions or rashes. No skin breakdown appreciated. Neuro: Awake, alert and oriented 3. Moves all extremities well without hemiparesis or paralysis. No essential tremor is appreciated. Result/EKG - Labs CBC & BMP: 12/25/16 04:32 12/25/16 04:32 Lab Results: I have reviewed the past 24 hour labs Labs: Laboratory Results - last 24 hr 12/24/16 12/24/16 12/24/16 16:01 16:01 16:01 WBC RBC Hgb Hct MCV MCH MCHC RDW Plt Count MPV Neut % (Auto) Lymph % (Auto) [place] % (Auto) Eos % (Auto) Baso % (Auto) Neut # (Auto) Lymph # (Auto) [place] # (Auto) Eos # (Auto) Baso # (Auto) Immature Gran % Nucleated RBC % Immature Gran # Nucleated RBCs # Circ Anticoag PTT Sodium Potassium Chloride Carbon Dioxide Anion Gap BUN Creatinine GFR Calculation BUN/Creatinine Ratio Glucose POC Glucose Calculated Osmolality Calcium Phosphorus 1.8 L Magnesium 1.8 Total Creatine Kinase 45 CK-MB (CK-2) < 1.0 Troponin I < 0.015 B-Natriuretic Peptide 1902 H Triglycerides Cholesterol LDL Cholesterol VLDL Cholesterol HDL Cholesterol Heart Disease Risk Ratio Free T4 TSH 3rd Generation 12/24/16 12/24/16 12/24/16 19:10 20:49 22:09 WBC RBC Hgb Hct MCV MCH MCHC RDW Plt Count MPV Neut % (Auto) Lymph % (Auto) [place] % (Auto) Eos % (Auto) Baso % (Auto) Neut # (Auto) Lymph # (Auto) [place] # (Auto) Eos # (Auto) Baso # (Auto) Immature Gran % Nucleated RBC % Immature Gran # Nucleated RBCs # Circ Anticoag PTT Sodium Potassium Chloride Carbon Dioxide Anion Gap BUN Creatinine GFR Calculation BUN/Creatinine Ratio Glucose POC Glucose 103 Calculated Osmolality Calcium Phosphorus Magnesium Total Creatine Kinase 27 D 25 L CK-MB (CK-2) < 1.0 < 1.0 Troponin I < 0.015 < 0.015 B-Natriuretic Peptide Triglycerides Cholesterol LDL Cholesterol VLDL Cholesterol HDL Cholesterol Heart Disease Risk Ratio Free T4 TSH 3rd Generation 12/25/16 12/25/16 12/25/16 04:32 04:32 04:32 WBC 10.0 RBC 2.70 L Hgb 7.4 L Hct 23.1 L MCV 85.6 L MCH 27 MCHC 32.0 RDW 18.8 H Plt Count 235 MPV 10.0 Neut % (Auto) 71.1 Lymph % (Auto) 13.7 L [place] % (Auto) 12.8 H Eos % (Auto) 1.2 Baso % (Auto) 0.4 Neut # (Auto) 7.1 Lymph # (Auto) 1.4 [place] # (Auto) 1.3 H Eos # (Auto) 0.1 Baso # (Auto) 0.0 Immature Gran % 0.8 Nucleated RBC % 1.0 Immature Gran # 0.08 Nucleated RBCs # 0.10 Circ Anticoag PTT 36.6 D Sodium 135 L Potassium 4.9 Chloride 99 Carbon Dioxide 28 Anion Gap 12.9 BUN 10 Creatinine 2.60 H GFR Calculation 22 BUN/Creatinine Ratio 3.00 L Glucose 82 POC Glucose Calculated Osmolality 267.1 L Calcium 8.1 L Phosphorus Magnesium 1.9 Total Creatine Kinase CK-MB (CK-2) Troponin I B-Natriuretic Peptide Triglycerides 69 Cholesterol 74 LDL Cholesterol 34.0 VLDL Cholesterol 13.8 HDL Cholesterol 33 L Heart Disease Risk Ratio 2.24 Free T4 TSH 3rd Generation 0.641 12/25/16 12/25/16 12/25/16 04:32 07:06 11:08 WBC RBC Hgb Hct MCV MCH MCHC RDW Plt Count MPV Neut % (Auto) Lymph % (Auto) [place] % (Auto) Eos % (Auto) Baso % (Auto) Neut # (Auto) Lymph # (Auto) [place] # (Auto) Eos # (Auto) Baso # (Auto) Immature Gran % Nucleated RBC % Immature Gran # Nucleated RBCs # Circ Anticoag PTT Sodium Potassium Chloride Carbon Dioxide Anion Gap BUN Creatinine GFR Calculation BUN/Creatinine Ratio Glucose POC Glucose 90 113 H Calculated Osmolality Calcium Phosphorus Magnesium Total Creatine Kinase CK-MB (CK-2) Troponin I B-Natriuretic Peptide Triglycerides Cholesterol LDL Cholesterol VLDL Cholesterol HDL Cholesterol Heart Disease Risk Ratio Free T4 1.24 TSH 3rd Generation - Diagnostic Findings Procedure: Chest x-ray: report reviewed by me, CT: report reviewed by me - EKG EKG results: interpreted by me EKG shows: atrial fibrillation
[2016-12-25] MEDS: FLUTICASONE/SALMETEROL 250-50 DISKUS 14 DOSE INH SCH (14:52)
[2016-12-25] MEDS ORDERED: SODIUM CHLORIDE 0.9% 250 ML IV PRN (16:39)
[2016-12-25] MEDS: cefTRIAXone 1,000 MG VIAL IM SCH (17:16)
[2016-12-25] MEDS: DILTIAZEM 30 MG TABLET PO SCH ×2 (17:16→22:01)
[2016-12-25] MEDS: ONDANSETRON 4 MG/2 ML VIAL IV PRN ×2 (17:17→22:35)
[2016-12-25] MEDS: INSULIN GLARGINE 100 UNIT/ML SUBCUT SCH (21:56)
[2016-12-25] MEDS: MONTELUKAST 10 MG TABLET PO SCH (22:01)
[2016-12-25] MEDS: GABAPENTIN 300 MG CAPSULE PO SCH (22:01)
[2016-12-25] MEDS: ATORVASTATIN 40 MG TABLET PO SCH (22:02)
[2016-12-26 03:12] LABS: Basophils % 0.3 % (0.0-0.8); Eosinophils # 0.1 10*3/uL (0.0-0.87); Eosinophils % 0.7 % (0.00-10.9); Hematocrit 23.1 VOL% (35.7-47.0); Hemoglobin 7.5 GM/DL (12.0-16.0); Immature Granulocytes % 0.8 %; Lymphocytes # 1.6 10*3/uL (1.4-4.0); Mean Corpuscular HGB Conc 32.5 GM/DL (32-36); Mean Corpuscular Hemoglobin 28 PG (27-34); Mean Corpuscular Volume 85.2 FL (87-102); Mean Platelet Volume 10.2 FL (9.6-12.0); Monocytes # 1.5 10*3/uL (0.11-0.8); Monocytes % 11.9 % (1.7-12.7); NRBC # 0.21 10*3/uL; Neutrophils # 9.2 10*3/uL (1.4-7.4); Neutrophils % 73.3 % (38.7-73.9); Platelet Count 228 T/CUMM (130-400); Red Blood Count 2.71 MC/CUMM (3.8-5.5); Red Cell Distribution Width 19.3 % (9.3-17.3); White Blood Count 12.6 T/CUMM (4-12)
[2016-12-26 03:40] LABS: Calcium 8.2 MG/DL (8.5-10.1); Magnesium 1.9 MG/DL (1.8-2.4); Osmolality,Calculated 266.4 MOS/KG (273-304)
[2016-12-26] MEDS: MULTIVITAMIN (CENTRUM) TABLET PO SCH (09:48)
[2016-12-26] MEDS: PANTOPRAZOLE 40 MG TABLET PO SCH (09:48)
[2016-12-26] MEDS: GABAPENTIN 100 MG CAPSULE PO SCH (09:48)
[2016-12-26] MEDS: MAGNESIUM OXIDE 400 MG TABLET PO SCH (09:48)
[2016-12-26] MEDS: FLUTICASONE/SALMETEROL 250-50 DISKUS 14 DOSE INH SCH (09:48)
[2016-12-26] MEDS: DILTIAZEM 30 MG TABLET PO SCH (09:48)
[2016-12-26] MEDS: CALCIUM ACETATE 667 MG CAPSULE PO SCH ×3 (09:48→18:04)
[2016-12-26] MEDS: METOPROLOL TARTRATE 50 MG TABLET PO SCH ×2 (09:48→20:38)
[2016-12-26] MEDS: ACETAMINOPHEN 325 MG TABLET PO PRN ×2 (09:51→18:11)
[2016-12-26] MEDS ORDERED: SODIUM CHLORIDE 0.9% 250 ML IV PRN (11:03)
--- NOTE | 2016-12-26 11:13 | Hospitalist Progress Note ---
Hospitalist: Subjective Interval history: Patient reports left upper chest and neck pain similar to her initial presentation. She reports that it waxes and wanes. No nausea or vomiting. Patient feels more short of breath today. Exam - Constitutional Vitals: Period Temp Pulse Resp BP Sys/Gonzalez Pulse Ox Last 24 Hr 97.8 F-100.4 F 59-118 18-20 97-124/56-72 90-99 Exam: GEN: A and O x 3, nonlabored speaking in full sentences HEENT: clear sclera NECK: Supple. SC dialysis tunnel line on right. No JVD CV: RRR, no obvious M, R, G LUNGS: Rales at the bases bilaterally, worse on the right, diminished at the bases, speaking in phrases with mild abdominal retractions ABD: soft, NT, ND, +BS EXT: Warm no c/c/e NEURO: nonfocal Results - Labs CBC & BMP: 12/26/16 02:52 12/26/16 11:22 - Impressions 1. Afib with RVR s/p spontaneous conversion- in sinus by telemetry. Off cardizem drip. Cont on metoprolol. s/p Digoxin 0.5mg IV x 1. Cont telemetry. Cardiology following. 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 Cardiology recommended continuing aspirin. TSH normal. Troponin negative so far. 2. Hyperkalemia- recheck K now. Plans to correct with hemodialysis today 3. Hypophosphatemia- replaced IV. 4. Decompensated chronic diastolic CHF- fluid management with HD 5. Fever in patient on HD with SC line and recent pneumonia- F/U blood cultures. Sputum culture not sent. Cont empiric IV Rocephin and Mucinex. Bronchodilators 6. ESRD on HD - HD per renal 7. COPD with chronic resp failure on 2L NC- bronchodilators, inhalers. oxygen 8. DM2- I.S.S. for now 9. Hypothyroidism- Cont home meds 10. Anemia likely due to anemia of chronic disease- H/H slightly down.Transfuse with HD 2 U PRBCs 12/26 DVT prophylaxis- Heparin SQ D/W pt and nurse and all questions answered. I will be away several days. 1 of my associates will follow in my absence
--- NOTE | 2016-12-26 12:14 | ECHO Report ---
Tiff Albert Exam Date: 12/26/2016 10:16 Referring Physician: Technologist: Age: 61 Ht (in): Wt (lb): Gender: F Exam Location: [facility] Echo Indications: BP: / HR: Rhythm: Sinus Technical Quality: IMPRESSIONS Normal left ventricular size, with mild concentric hypertrophy, with normal systolic function. Estimated left ventricular ejection fraction 55%. The right ventricle is mildly dilated, with normal systolic function, moderate tricuspid regurgitation and severe pulmonary hypertension. Mild biatrial enlargement. Mild eccentric mitral regurgitation. Mild aortic valve sclerosis, without stenosis or insufficiency. MEASUREMENTS (Male / Female) Normal Values 2D ECHO LV Diastolic Diameter PLAX 4.2 cm 4.2 - 5.9 / 3.9 - 5.3 cm LV Systolic Diameter PLAX 3.2 cm LV Fractional Shortening PLAX 24.0 % IVS Diastolic Thickness 1.3 cm 0.6 - 1.0 / 0.6 - 0.9 cm LVPW Diastolic Thickness 1.1 cm 0.6 - 1.0 / 0.6 - 0.9 cm RV Internal Dim ED PLAX 3.0 cm Aortic Root Diameter 2.8 cm LA Systolic Diameter LX 4.7 cm 3.0 - 4.0 / 2.7 - 3.8 cm DOPPLER TR Peak Velocity 396.0 cm/s TR Peak Gradient 62.7 mmHg FINDINGS Left Ventricle Normal left ventricular size, with mild concentric hypertrophy, with normal systolic function. Estimated left ventricular ejection fraction 55%. Unable to estimate diastolic function, due to arrhythmia. Right Ventricle The right ventricle is mildly dilated, with normal systolic function. Right Atrium The right atrium is mildly dilated. Left Atrium The left atrium is mildly dilated. Mitral Valve Structurally normal mitral valve, with mild eccentric regurgitation. Aortic Valve Mild aortic valve sclerosis, without stenosis or insufficiency Tricuspid Valve Structurally normal tricuspid valve, with moderate regurgitation. Estimated pulmonary artery systolic pressure 73 mmHg. Pulmonic Valve The pulmonic valve is not visualized. Pericardium Normal pericardium without effusion. Aorta Normal ascending aorta dimension. Tommie Johnston (Electronically Signed) Final Date: 26 Dec 2016 12:12
--- NOTE | 2016-12-26 12:18 | Cardiology Progress Note ---
Assessment and Plan (1) Paroxysmal atrial fibrillation Status: Chronic Assessment and plan: 61-year-old black female, end-stage renal disease on hemodialysis, atrial flutter/fib, hypertension, hyperlipidemia. She was hospitalized in October due to change in mental status. She also has intermittent chest pain, which was deemed to be noncardiac in the past. This time, she was admitted with RVR, atrial flutter and fibrillation, and on dialysis. She also chest pain. She noticed that her chest pain worsens around dialysis. -CP. This was due to symptomatic tachycardia. Reviewed her current and prior EKGs. She had typical atrial flutter, atypical atrial flutter and also atrial fibrillation. -Comorbidities limit antiarrhythmic options. She has COPD but no ILD. Start amiodarone 400 mg twice daily, discontinue Cardizem. Continue metoprolol, if she becomes bradycardic, this may need to be decreased. -Her atrial tachyarrhythmias are exacerbated by her chronic renal issues, she is exposed to electrolyte and volume shifts. If this remains difficult to control, ablation can be considered. She is a poor candidate for this, she has severe pulmonary hypertension, advanced atrial remodeling, mitral and tricuspid regurgitation. -She could not tolerate anticoagulation with Eliquis in the past due to bleeding , she still has severe anemia. Start aspirin. -Active coronary ischemia unlikely, cardiac biomarkers were negative. Current Visit: No (2) Anemia Status: Chronic Current Visit: No (3) Chronic renal failure Status: Chronic Current Visit: No (4) COPD (chronic obstructive pulmonary disease) Status: Chronic Current Visit: No Qualifiers: (5) Pseudotumor cerebri Status: Acute Current Visit: No (6) Hypertension Status: Chronic Current Visit: No Qualifiers: Hypertension type: essential hypertension Qualified Code(s): I10 - Essential (primary) hypertension Cardiology - PN: Subj Interval history: Heart rate is better controlled. She is still having some mild chest discomfort. Cardiac biomarkers remain negative, she is in atrial flutter now, without ischemic changes. Exam (Progress Note) - Constitutional Vitals: Period Temp Pulse Resp BP Sys/Gonzalez Pulse Ox Last 24 Hr 99.1 F-100.4 F 59-118 18-20 97-124/57-72 90-99 General appearance: normal weight, no acute distress - Head Head exam: Present: normal inspection - Eye Eye exam: Absent: conjunctival injection Pupils: Absent: dilated - ENT ENT exam: Present: normal external ear exam - Neck Neck exam: Present: normal inspection - Respiratory Respiratory exam: Present: clear to auscultation bilaterally - Cardiovascular Cardiovascular exam: Present: irregular rhythm, systolic murmur - GI/Abdominal GI/Abdominal exam: Present: normal bowel sounds - Extremities Exam Extremities exam: Present: normal inspection, normal capillary refill. Absent: edema - Back Exam Back exam: Present: normal inspection - Neurological Exam Neurological exam: Present: alert, oriented X3 - Psychiatric Psychiatric exam: Present: normal affect, normal mood - Skin Skin exam: Present: normal color, warm. Absent: cyanosis Result/EKG - Labs CBC & BMP: 12/26/16 02:52 12/26/16 11:22 Lab Results: I have reviewed the past 24 hour labs Labs: Laboratory Results - last 24 hr 12/25/16 12/25/16 12/25/16 16:52 17:10 21:08 WBC RBC Hgb Hct MCV MCH MCHC RDW Plt Count MPV Neut % (Auto) Lymph % (Auto) [place] % (Auto) Eos % (Auto) Baso % (Auto) Neut # (Auto) Lymph # (Auto) [place] # (Auto) Eos # (Auto) Baso # (Auto) Immature Gran % Nucleated RBC % Immature Gran # Nucleated RBCs # Sodium Potassium Chloride Carbon Dioxide Anion Gap BUN Creatinine GFR Calculation BUN/Creatinine Ratio Glucose POC Glucose 133 H 123 H Calculated Osmolality Calcium Magnesium Blood Type B POSITIVE Antibody Screen Positive Antibody Identification Anti-K Crossmatch See Detail 12/26/16 12/26/16 12/26/16 02:52 02:52 07:12 WBC 12.6 H RBC 2.71 L Hgb 7.5 L Hct 23.1 L MCV 85.2 L MCH 28 MCHC 32.5 RDW 19.3 H Plt Count 228 MPV 10.2 Neut % (Auto) 73.3 Lymph % (Auto) 13.0 L [place] % (Auto) 11.9 Eos % (Auto) 0.7 Baso % (Auto) 0.3 Neut # (Auto) 9.2 H Lymph # (Auto) 1.6 [place] # (Auto) 1.5 H Eos # (Auto) 0.1 Baso # (Auto) 0.0 Immature Gran % 0.8 Nucleated RBC % 1.7 Immature Gran # 0.10 Nucleated RBCs # 0.21 Sodium 133 L Potassium 6.0 H* D Chloride 97 L Carbon Dioxide 25 Anion Gap 17.0 H BUN 14 Creatinine 3.90 H GFR Calculation 13 BUN/Creatinine Ratio 3.00 L Glucose 99 POC Glucose 97 Calculated Osmolality 266.4 L Calcium 8.2 L Magnesium 1.9 Blood Type Antibody Screen Antibody Identification Crossmatch - EKG EKG results: interpreted by me
--- NOTE | 2016-12-26 13:08 | Nephrology Consult Note ---
History of Present Illness Chief complaint: esrd History of present illness: Ms. Albert is a 61 year old female with end-stage renal disease who has had recurrent chest pain shortness of breath. She was admitted with atrial fibrillation with a rapid ventricular response. She has had atrial fib in the past. Rate is now controlled and patient improved. We were asked to see her because of her need for hemodialysis and she is to receive packed cells on dialysis today. She describes having chest discomfort that never goes away and this made somewhat worse toward the end of each dialysis. She has been eating less well and her weight has been decreasing. She did have significant problems with chronic fluid overload for a while but that seems to be improved. She has had studies documenting no pulmonary emboli. On physical exam she is in no distress and neck without jugular venous distention heart without rub or gallop no peripheral edema is noted. Should be noted that during times of significant volume overload with pulmonary edema she has no peripheral edema. Impression #1 atrial fib rapid ventricular response # 2 end-stage renal disease #3 anemia due to multifactorial reasons including renal impairment Plan hemodialysis today with transfusion. Home Medications Medication Instructions Recorded Confirmed Type Atorvastatin [Lipitor] 40 mg PO BEDTIME 12/10/15 12/24/16 History Multivitamin [One Daily] 1 tablet PO QAM 12/10/15 12/24/16 History dilTIAZem HCl [Diltiazem 24Hr ER] 300 mg PO QAM 12/10/15 12/24/16 History Montelukast Tab [Singulair Tab] 10 mg PO BEDTIME 02/02/16 12/24/16 History Insulin Detemir [Levemir FlexPen] 8 unit SUBCUT 1900 02/24/16 12/24/16 History Calcium Acetate 667 mg PO TID W/MEALS 06/16/16 12/24/16 History Ipratropium/Albuterol Sulfate 3 ml PO QID PRN 06/16/16 12/24/16 History [Iprat-Albut 0.5-3(2.5) mg/3 ml] Gabapentin 300 mg PO BEDTIME 09/26/16 12/24/16 History Methocarbamol 750 mg PO BID PRN 09/26/16 12/24/16 History Fluticasone/Salmeterol 250-50 1 puff INH QAM 10/03/16 12/24/16 History [Advair 250-50] Aspirin EC Tab 162.5 mg PO QAM 11/12/16 12/24/16 History Fluticasone Propionate 1 spray BOTH NARES BID PRN 11/12/16 12/24/16 History [Fluticasone 50 mcg Nasal [place]] Magnesium Oxide 400 mg PO QAM 11/12/16 12/24/16 History Pantoprazole Sodium 40 mg PO QAM 11/12/16 12/24/16 History Acetaminophen Tab [Tylenol Tab] 325 mg PO Q4H PRN #0 tablet 11/26/16 12/24/16 Rx Furosemide [Furosemide] 160 mg PO BID 12/24/16 12/24/16 History Gabapentin [Gabapentin] 100 mg PO QAM 12/24/16 12/24/16 History Metoprolol Tartrate [Metoprolol 50 mg PO BID 12/24/16 12/24/16 History Tartrate] hydrALAZINE TAB [Apresoline Tab] 100 mg PO TID 12/24/16 12/24/16 History raNITIdine HCl [Ranitidine HCl] 150 mg PO BID 12/24/16 12/24/16 History Allergies Allergy/AdvReac Type Severity Reaction Status Date / Time codeine Allergy Severe Swelling Verified 04/12/16 19:35 of Lip/Tongue/Throat morphine AdvReac Intermediate Abdominal Verified 04/12/16 19:35 Pain olmesartan [From Benicar] AdvReac Unknown/Unable Verified 09/26/16 11:22 to obtain venlafaxine [From Effexor] AdvReac Abdominal Verified 09/26/16 11:22 Pain Medical,Surgical,& Family Hx - Medical History Cardio: History of: Cardiac Dysrhythmia (A-FIB), CHF, Hypertension No history of: CAD, [place], Pacemaker, PVD Psychological: History of: Anxiety Disorders, Depression Neurology: History of: Migraine No history of: Seizures, TIA HEENT: History of: Eye Problem (GLASSES/CATARCTS), HEENT Problems (SINUSITIS/ ALLERGIES) Endocrine: History of: Diabetes Mellitus (IDDM), Diabetes Mellitus (NIDDM), Dyslipidemia Respiratory: History of: Asthma, Bronchitis, COPD, Obstructive Sleep Apnea ( doesnt wear cpap), Respiratory Problems (DR. [facility] AT [facility]) No history of: Pulmonary Embolism Renal: History of: Dialysis (Tues, Th, Sat), Renal Failure, Renal Problems ( [facility]) Gastrointestinal: History of: GERD No history of: Hepatitis Musculoskeletal: History of: Back/Neck Problems Hematology: History of: Anemia No history of: Blood Transfusion Reaction Other: No history of: Anesthesia Reactions, Cancer - Surgical History Cardiac Surgeries: Patient Denies: Vascular Access Devices HEENT Surgeries: Surgical HX of: Eye Surgery (FOR CATARACT LT 03/05/15) Reproductive Surgeries: Surgical HX of;: Section (X1), Hysterectomy ( WITH BSO), Tubal Ligation Orthopedic Surgeries: Surgical HX of;: Orthopedic Surgery (RIGHT KNEE SURG), Spinal Surgery ( BACK SURGERY) - Family History Family History: Reports;: Family Diabetes (MOTHER () and brother), Family Heart Disease (GRANDPARENTS/PARENTS), Family Hypertension (PARENTS), Family Stroke (sister) - Social History Smoking Status: Former smoker Frequency of Alcohol Use: None Type of Drug Use: None Review of Systems 12 point system: reviewed and no additional remarkable complaints except as stated Exam - Vital Signs Vital signs: Period Temp Pulse Resp BP Sys/Gonzalez Pulse Ox Last 24 Hr 97.6 F-100.4 F 59-118 18-20 97-124/57-72 90-99 - General Appearance General appearance: well-developed, well-nourished, appears started age EENT: ATNC Neck: no JVD, no thyromegaly, no carotid bruit, supple Respiratory: no kyphosis, no scoliosis Cardiology: no murmurs, no rub, no gallops, no edema, regular rate, regular rhythm, normal S1, normal S2 Gastrointestinal: normoactive bowel sounds Integumentary: no rash, warm and dry Neurologic: no focal deficit, no asterixis, alert and oriented x3, reflexes 2+ and symmetric, gait normal, strength 5/5 Results - Labs CBC & BMP: 12/26/16 02:52 12/26/16 11:22 Assessment and Plan (1) End stage renal disease Status: Chronic Assessment and plan: Dialysis today Current Visit: No (2) Anemia Status: Chronic Assessment and plan: Transfuse Current Visit: No (3) Atrial fibrillation Status: Acute Assessment and plan: Rate control Current Visit: No Specialty Discharge - Follow Up or Referrals - Speciality Discharge Instructions Nephrology Instructions: Dialyze and transfuse. Decrease fluid weight to control pulmonary congestion
--- NOTE | 2016-12-26 13:22 | Dialysis Note ---
Dialysis Note - Dialysis Note Ms. Albert is seen during hemodialysis. We are going to remove 3 kg of volume today and transfuse 2 units packed red cells. Thus far she is tolerating it well.
[2016-12-26] MEDS ORDERED: HEPARIN 10,000 UNIT/10 ML VIAL IV PRN (14:31)
[2016-12-26] MEDS ORDERED: SODIUM CHLORIDE 0.9% 100 ML IV ONE (16:36)
[2016-12-26] MEDS: AMIODARONE 200 MG TABLET PO SCH ×2 (16:45→20:38)
[2016-12-26] MEDS: ASPIRIN EC 81 MG TABLET PO SCH (16:46)
[2016-12-26] MEDS: COLESEVELAM 625 MG TABLET PO SCH (16:46)
[2016-12-26] MEDS: cefTRIAXone 1,000 MG VIAL IM SCH (18:04)
[2016-12-26] MEDS: INSULIN GLARGINE 100 UNIT/ML SUBCUT SCH (18:20)
[2016-12-26] MEDS: ATORVASTATIN 40 MG TABLET PO SCH (20:38)
[2016-12-26] MEDS: GABAPENTIN 300 MG CAPSULE PO SCH (20:39)
[2016-12-26] MEDS: MONTELUKAST 10 MG TABLET PO SCH (20:39)
[2016-12-27 05:25] LABS: Basophils % 0.3 % (0.0-0.8); Eosinophils # 0.2 10*3/uL (0.0-0.87); Eosinophils % 1.9 % (0.00-10.9); Hematocrit 32.1 VOL% (35.7-47.0); Immature Granulocytes % 0.8 %; Immature Granulocytes Absolute 0.08 #; Lymphocytes # 1.3 10*3/uL (1.4-4.0); Lymphocytes % 12.3 % (21.3-54.2); Mean Corpuscular HGB Conc 32.1 GM/DL (32-36); Mean Corpuscular Hemoglobin 28 PG (27-34); Mean Corpuscular Volume 85.6 FL (87-102); Mean Platelet Volume 9.5 FL (9.6-12.0); Monocytes # 1.2 10*3/uL (0.11-0.8); Monocytes % 11.3 % (1.7-12.7); NRBC # 0.17 10*3/uL; Neutrophils # 7.7 10*3/uL (1.4-7.4); Neutrophils % 73.4 % (38.7-73.9); Platelet Count 200 T/CUMM (130-400); Red Cell Distribution Width 18.7 % (9.3-17.3); White Blood Count 10.5 T/CUMM (4-12)
[2016-12-27 05:49] LABS: Calcium 8.8 MG/DL (8.5-10.1); Magnesium 2.2 MG/DL (1.8-2.4); Osmolality,Calculated 271.8 MOS/KG (273-304); Potassium 4.3 MMOL/L (3.5-5.1)
[2016-12-27 06:24] LABS: Red Blood Count 3.75 MC/CUMM (3.8-5.5)
[2016-12-27 06:25] LABS: Hemoglobin 10.3 GM/DL (12.0-16.0)
[2016-12-27] MEDS: COLESEVELAM 625 MG TABLET PO SCH ×2 (09:49→16:39)
[2016-12-27] MEDS: ASPIRIN EC 81 MG TABLET PO SCH (09:49)
[2016-12-27] MEDS: GABAPENTIN 100 MG CAPSULE PO SCH (09:50)
[2016-12-27] MEDS: PANTOPRAZOLE 40 MG TABLET PO SCH (09:50)
[2016-12-27] MEDS: MULTIVITAMIN (CENTRUM) TABLET PO SCH (09:50)
[2016-12-27] MEDS: CALCIUM ACETATE 667 MG CAPSULE PO SCH ×3 (09:50→16:37)
[2016-12-27] MEDS: MAGNESIUM OXIDE 400 MG TABLET PO SCH (09:50)
[2016-12-27] MEDS: METOPROLOL TARTRATE 50 MG TABLET PO SCH ×2 (09:50→21:20)
[2016-12-27] MEDS: AMIODARONE 200 MG TABLET PO SCH ×2 (09:50→21:20)
[2016-12-27] MEDS: FLUTICASONE/SALMETEROL 250-50 DISKUS 14 DOSE INH SCH (09:51)
--- NOTE | 2016-12-27 09:59 | Cardiology Progress Note ---
Assessment and Plan (1) Paroxysmal atrial fibrillation Status: Chronic Assessment and plan: 61-year-old black female, end-stage renal disease on hemodialysis, atrial flutter/fib, hypertension, hyperlipidemia. She was hospitalized in October due to change in mental status. She also has intermittent chest pain, which was deemed to be noncardiac in the past. This time, she was admitted with RVR, atrial flutter and fibrillation, and on dialysis. She also chest pain. She noticed that her chest pain worsens around dialysis. -CP. This was due to symptomatic tachycardia. Reviewed her current and prior EKGs. She had typical atrial flutter, atypical atrial flutter and also atrial fibrillation. -Comorbidities limit antiarrhythmic options. She has COPD but no ILD. Start amiodarone 400 mg twice daily, continue metoprolol. The cardizem was stopped. Decrease amiodarone to 200 mg daily, after 1 week of p.o. loading. -Her atrial tachyarrhythmias are exacerbated by her chronic renal issues, she is exposed to electrolyte and volume shifts. If this remains difficult to control, ablation can be considered. She is a poor candidate for this, she has severe pulmonary hypertension, advanced atrial remodeling, mitral and tricuspid regurgitation. -She could not tolerate anticoagulation with Eliquis in the past due to bleeding , she still has severe anemia. ASA was started. -Active coronary ischemia unlikely, cardiac biomarkers were negative. Current Visit: No (2) Anemia Status: Chronic Current Visit: No (3) Chronic renal failure Status: Chronic Current Visit: No (4) COPD (chronic obstructive pulmonary disease) Status: Chronic Current Visit: No Qualifiers: (5) Pseudotumor cerebri Status: Acute Current Visit: No (6) Hypertension Status: Chronic Current Visit: No Qualifiers: Hypertension type: essential hypertension Qualified Code(s): I10 - Essential (primary) hypertension Cardiology - PN: Subj Interval history: She is still feeling weak. Heart rate better controlled. The blood pressure in normal range. Exam (Progress Note) - Constitutional Vitals: Period Temp Pulse Resp BP Sys/Gonzalez Pulse Ox Last 24 Hr 97.0 F-99.1 F 61-103 16-20 104-126/57-75 90-96 General appearance: normal weight, no acute distress - Head Head exam: Present: normal inspection, normocephalic - Eye Eye exam: Absent: conjunctival injection Pupils: Absent: dilated - ENT ENT exam: Present: normal external ear exam - Neck Neck exam: Present: normal inspection - Respiratory Respiratory exam: Present: clear to auscultation bilaterally - Cardiovascular Cardiovascular exam: Present: irregular rhythm, tachycardia - GI/Abdominal GI/Abdominal exam: Present: normal bowel sounds. Absent: distended - Extremities Exam Extremities exam: Present: normal inspection, normal capillary refill. Absent: edema - Back Exam Back exam: Present: normal inspection - Neurological Exam Neurological exam: Present: alert, oriented X3 - Psychiatric Psychiatric exam: Present: normal affect, normal mood - Skin Skin exam: Present: normal color, warm. Absent: cyanosis Result/EKG - Labs CBC & BMP: 12/27/16 06:11 12/27/16 05:04 Lab Results: I have reviewed the past 24 hour labs Labs: Laboratory Results - last 24 hr 12/25/16 12/26/16 12/26/16 17:10 11:22 11:49 WBC RBC Hgb Hct MCV MCH MCHC RDW Plt Count MPV Neut % (Auto) Lymph % (Auto) [place] % (Auto) Eos % (Auto) Baso % (Auto) Neut # (Auto) Lymph # (Auto) [place] # (Auto) Eos # (Auto) Baso # (Auto) Immature Gran % Nucleated RBC % Immature Gran # Nucleated RBCs # Sodium Potassium 5.2 H Chloride Carbon Dioxide Anion Gap BUN Creatinine GFR Calculation BUN/Creatinine Ratio Glucose POC Glucose 100 Calculated Osmolality Calcium Magnesium Blood Type B POSITIVE Antibody Screen Positive Antibody Identification Anti-K Crossmatch See Detail 12/26/16 12/26/16 12/27/16 16:43 20:43 05:04 WBC RBC Hgb Hct MCV MCH MCHC RDW Plt Count MPV Neut % (Auto) Lymph % (Auto) [place] % (Auto) Eos % (Auto) Baso % (Auto) Neut # (Auto) Lymph # (Auto) [place] # (Auto) Eos # (Auto) Baso # (Auto) Immature Gran % Nucleated RBC % Immature Gran # Nucleated RBCs # Sodium 137 Potassium 4.3 Chloride 99 Carbon Dioxide 26 Anion Gap 16.3 H BUN 10 Creatinine 3.10 H GFR Calculation 17 BUN/Creatinine Ratio 3.00 L Glucose 95 POC Glucose 81 180 H Calculated Osmolality 271.8 L Calcium 8.8 Magnesium 2.2 Blood Type Antibody Screen Antibody Identification Crossmatch 12/27/16 12/27/16 06:11 07:00 WBC 10.5 RBC 3.75 L D Hgb 10.3 L D Hct 32.1 L MCV 85.6 L MCH 28 MCHC 32.1 RDW 18.7 H Plt Count 200 MPV 9.5 L Neut % (Auto) 73.4 Lymph % (Auto) 12.3 L [place] % (Auto) 11.3 Eos % (Auto) 1.9 Baso % (Auto) 0.3 Neut # (Auto) 7.7 H Lymph # (Auto) 1.3 L [place] # (Auto) 1.2 H Eos # (Auto) 0.2 Baso # (Auto) 0.0 Immature Gran % 0.8 Nucleated RBC % 1.6 Immature Gran # 0.08 Nucleated RBCs # 0.17 Sodium Potassium Chloride Carbon Dioxide Anion Gap BUN Creatinine GFR Calculation BUN/Creatinine Ratio Glucose POC Glucose 94 Calculated Osmolality Calcium Magnesium Blood Type Antibody Screen Antibody Identification Crossmatch - EKG EKG results: interpreted by me
--- NOTE | 2016-12-27 10:51 | Hospitalist Progress Note ---
Assessment and Plan (1) Atrial fibrillation Status: Acute Current Visit: No Qualifiers: Atrial fibrillation type: paroxysmal Qualified Code(s): I48.0 - Paroxysmal atrial fibrillation (2) End stage renal disease on dialysis Status: Acute Current Visit: No (3) Pseudotumor cerebri Status: Acute Current Visit: No (4) Urinary tract infection Status: Acute Current Visit: No (5) Anemia in CKD (chronic kidney disease) Status: Chronic Current Visit: No (6) COPD (chronic obstructive pulmonary disease) Status: Chronic Assessment and plan: -Continue current medications with metoprolol for rate control, rate control improved -Potassium level improved overnight, continue to monitor -Continue oxygen supplementation for COPD with chronic respiratory failure -Continue nebulized breathing treatments. -Hematocrit improved to 32 following transfusion -Cardiology and nephrology following, will continue to follow the recommendations, creatinine down to 3.1 Current Visit: No Qualifiers: Hospitalist: Subjective Interval history: The patient is a 61-year-old female with end-stage renal disease, COPD, hypertension and paroxysmal atrial fibrillation was admitted to the hospital with atrial fibrillation with rapid ventricular response. At the time of her presentation, the patient complained of significant shortness of breath. This is resolved today. She does continue complain of occasional palpitations but she denies any chest pain. Exam - Constitutional Vitals: Period Temp Pulse Resp BP Sys/Gonzalez Pulse Ox Last 24 Hr 97.0 F-99.1 F 61-103 16-20 104-126/57-75 90-96 General appearance: other (Chronically ill-appearing female, appears older than her stated age) - Eye Eye exam: Present: EOMI Pupils: Present: JOSE - ENT ENT exam: Present: normal exam - Neck Neck exam: Present: other (Positive JVD) - Respiratory Respiratory exam: Present: clear to auscultation bilaterally. Absent: rales, rhonchi - Cardiovascular Cardiovascular exam: Present: other (Irregularly irregular rhythm, rate 90-95) - GI/Abdominal GI/Abdominal exam: Present: normal bowel sounds. Absent: ascites, distended - Extremities Exam Extremities exam: Present: full ROM - Neurological Exam Neurological exam: Present: alert, oriented X3 - Psychiatric Psychiatric exam: Present: normal affect - Skin Skin exam: Present: normal color Results - Labs CBC & BMP: 12/27/16 06:11 05/28/17 05:04 Lab Results: I have reviewed the past 24 hour labs
--- NOTE | 2016-12-27 11:08 | Nephrology Progress Note ---
Nephrology - PN: Subj Interval history: Ms. Albert is seen in follow-up for end-stage renal disease. She dialyzed without difficulty yesterday and received packed red cells. She is up in a chair today and feels better. Her heart rate with her atrial fibrillation is controlled. She generally feels better with a slower heart rate and that her hematocrit. Chest is fairly clear. We will continue to support with her hemodialysis on Wednesday. Exam (PN)-Nephrology - Vital Signs Vital signs: Period Temp Pulse Resp BP Sys/Gonzalez Pulse Ox Last 24 Hr 97.0 F-99.1 F 61-103 16-20 104-126/57-75 90-96 - Lab 12/27/16 06:11 12/27/16 05:04 Most recent lab results Calcium 8.8 MG/DL (8.5-10.1) 12/27/16 05:04 Phosphorus 1.8 MG/DL (2.5-4.9) L 12/24/16 16:01 Magnesium 2.2 MG/DL (1.8-2.4) 12/27/16 05:04 Assessment and Plan (1) End stage renal disease Status: Chronic Assessment and plan: Dialysis today Current Visit: No (2) Anemia Status: Chronic Assessment and plan: Transfuse Current Visit: No (3) Atrial fibrillation Status: Acute Assessment and plan: Rate control Current Visit: No
[2016-12-27] MEDS: cefTRIAXone 1,000 MG VIAL IM SCH (16:37)
[2016-12-27] MEDS: INSULIN GLARGINE 100 UNIT/ML SUBCUT SCH (18:45)
[2016-12-27] MEDS: MONTELUKAST 10 MG TABLET PO SCH (21:20)
[2016-12-27] MEDS: GABAPENTIN 300 MG CAPSULE PO SCH (21:20)
[2016-12-27] MEDS: ATORVASTATIN 40 MG TABLET PO SCH (21:20)
[2016-12-28] MEDS: ACETAMINOPHEN 325 MG TABLET PO PRN (00:44)
[2016-12-28 05:14] LABS: Basophils % 0.2 % (0.0-0.8); Eosinophils # 0.2 10*3/uL (0.0-0.87); Eosinophils % 1.5 % (0.00-10.9); Hematocrit 31.4 VOL% (35.7-47.0); Hemoglobin 9.8 GM/DL (12.0-16.0); Immature Granulocytes % 0.5 %; Immature Granulocytes Absolute 0.07 #; Lymphocytes # 0.9 10*3/uL (1.4-4.0); Lymphocytes % 7.1 % (21.3-54.2); Mean Corpuscular HGB Conc 31.2 GM/DL (32-36); Mean Corpuscular Hemoglobin 27 PG (27-34); Mean Platelet Volume 10.2 FL (9.6-12.0); Monocytes # 1.3 10*3/uL (0.11-0.8); Monocytes % 10.1 % (1.7-12.7); NRBC # 0.15 10*3/uL; Neutrophils # 10.6 10*3/uL (1.4-7.4); Neutrophils % 80.6 % (38.7-73.9); Platelet Count 218 T/CUMM (130-400); Red Blood Count 3.65 MC/CUMM (3.8-5.5); Red Cell Distribution Width 18.7 % (9.3-17.3); White Blood Count 13.1 T/CUMM (4-12)
[2016-12-28 05:56] LABS: Calcium 8.3 MG/DL (8.5-10.1); Magnesium 2.2 MG/DL (1.8-2.4); Potassium 4.7 MMOL/L (3.5-5.1)
[2016-12-28 08:12] VITALS: BP 126/67
[2016-12-28] MEDS: PANTOPRAZOLE 40 MG TABLET PO SCH (09:07)
[2016-12-28] MEDS: CALCIUM ACETATE 667 MG CAPSULE PO SCH (09:07)
[2016-12-28] MEDS: FLUTICASONE/SALMETEROL 250-50 DISKUS 14 DOSE INH SCH (09:08)
[2016-12-28] MEDS: COLESEVELAM 625 MG TABLET PO SCH (09:08)
[2016-12-28] MEDS: MAGNESIUM OXIDE 400 MG TABLET PO SCH (09:08)
[2016-12-28] MEDS: GABAPENTIN 100 MG CAPSULE PO SCH (09:08)
[2016-12-28] MEDS: ASPIRIN EC 81 MG TABLET PO SCH (09:08)
[2016-12-28] MEDS: AMIODARONE 200 MG TABLET PO SCH (09:08)
[2016-12-28] MEDS: METOPROLOL TARTRATE 50 MG TABLET PO SCH (09:08)
[2016-12-28] MEDS: MULTIVITAMIN (CENTRUM) TABLET PO SCH (09:08)
--- NOTE | 2016-12-28 09:28 | Discharge Summary ---
Hospital Course - Hospital Course Hospital Course: The patient was admitted to the hospital with altered mental status and tachycardia. The patient was diagnosed with atrial fibrillation and rapid ventricular response. The patient had cardiology consultation and the patient converted to sinus rhythm after medications were given. The patient received hemodialysis during the hospitalization. The patient received 2 units packed red blood cells. Anticoagulation for future atrial fibrillation episodes was considered but due to her prior bleeding history was not given. The patient will take aspirin each day to reduce the risk of embolus. The patient's altered mental status has resolved. The patient is improved and returned to baseline the patient will be discharged home. On the date of discharge, chest is clear and abdomen soft. Heart has regular rate and rhythm. Time required for discharge planning, education of patient, and preparation of documents was 38 minutes. - Time spent with patient Time with patient DS: Greater than 30 minutes Diagnosis - Discharge Diagnosis (1) Atrial fibrillation with rapid ventricular response Status: Resolved (2) ESRD on dialysis Status: Chronic Discharge Plan - Discharge Data Disposition: Disch To Home/Self Care Condition at Discharge: Stable Discharge Diet: advance to your usual diet Activity: resume usual activities as tolerated Hygiene: no restrictions - Discharge Medications New RX: Amiodarone Tab [Cordarone Tab] 400 mg PO BID #90 tablet Continue RX: Multivitamin [One Daily] 1 tablet PO QAM RX: Atorvastatin [Lipitor] 40 mg PO BEDTIME RX: dilTIAZem HCl [Diltiazem 24Hr ER] 300 mg PO QAM RX: Montelukast Tab [Singulair Tab] 10 mg PO BEDTIME RX: Insulin Detemir [Levemir FlexPen] 8 unit SUBCUT 1900 RX: Calcium Acetate 667 mg PO TID W/MEALS RX: Ipratropium/Albuterol Sulfate [Iprat-Albut 0.5-3(2.5) mg/3 ml] 3 ml PO QID PRN PRN Reason: Shortness Of Breath RX: Gabapentin 300 mg PO BEDTIME RX: Aspirin EC Tab 162.5 mg PO QAM RX: Fluticasone Propionate [Fluticasone 50 mcg Nasal [place]] 1 spray BOTH NARES BID PRN PRN Reason: Allergy Symptoms RX: Magnesium Oxide 400 mg PO QAM RX: Pantoprazole Sodium 40 mg PO QAM RX: raNITIdine HCl [Ranitidine HCl] 150 mg PO BID RX: Furosemide 160 mg PO BID RX: hydrALAZINE TAB [Apresoline Tab] 100 mg PO TID RX: Gabapentin 100 mg PO QAM RX: Methocarbamol 750 mg PO BID PRN PRN Reason: MUSCLE SPASMS RX: Fluticasone/Salmeterol 250-50 [Advair 250-50] 1 puff INH QAM RX: Metoprolol Tartrate 50 mg PO BID Discontinued RX: Acetaminophen Tab [Tylenol Tab] 325 mg PO Q4H PRN #0 tablet PRN Reason: fever, headache/body aches - Follow Up or Referral Follow Up: Tommie Johnston MD [Physician] - 2 Weeks Dialysis,Appointment [Other] - 12/29/16 - Forms/Instructions Exam - Constitutional Vitals: Period Temp Pulse Resp BP Sys/Gonzalez Pulse Ox Last 24 Hr 97.0 F-100.5 F 76-110 18-20 115-142/67-79 94-97 Discharge Results Procedures and tests throughout hospitalization: Pending Orders 12/24/16 19:10 Blood Culture Stat 12/26/16 11:45 Sputum Culture and Gram Stain Routine Labs on day of discharge: Labs from last 24 hours 12/28/16 12/28/16 12/28/16 07:52 04:07 04:07 WBC 13.1 H RBC 3.65 L Hgb 9.8 L Hct 31.4 L MCV 86.0 L MCH 27 MCHC 31.2 L RDW 18.7 H Plt Count 218 MPV 10.2 Neut % (Auto) 80.6 H Lymph % (Auto) 7.1 L [place] % (Auto) 10.1 Eos % (Auto) 1.5 Baso % (Auto) 0.2 Neut # (Auto) 10.6 H Lymph # (Auto) 0.9 L [place] # (Auto) 1.3 H Eos # (Auto) 0.2 Baso # (Auto) 0.0 Immature Gran % 0.5 Nucleated RBC % 1.1 Immature Gran # 0.07 Nucleated RBCs # 0.15 Sodium 136 Potassium 4.7 Chloride 100 Carbon Dioxide 24 Anion Gap 16.7 H BUN 18 Creatinine 4.40 H GFR Calculation 11 BUN/Creatinine Ratio 4.00 L Glucose 127 H POC Glucose 120 H Calculated Osmolality 275.0 Calcium 8.3 L Magnesium 2.2 Blood Type Antibody Screen Antibody Identification Crossmatch 05/12/27/16 12/27/16 21:20 16:04 12:11 WBC RBC Hgb Hct MCV MCH MCHC RDW Plt Count MPV Neut % (Auto) Lymph % (Auto) [place] % (Auto) Eos % (Auto) Baso % (Auto) Neut # (Auto) Lymph # (Auto) [place] # (Auto) Eos # (Auto) Baso # (Auto) Immature Gran % Nucleated RBC % Immature Gran # Nucleated RBCs # Sodium Potassium Chloride Carbon Dioxide Anion Gap BUN Creatinine GFR Calculation BUN/Creatinine Ratio Glucose POC Glucose 168 H 179 H 123 H Calculated Osmolality Calcium Magnesium Blood Type Antibody Screen Antibody Identification Crossmatch 12/25/16 17:10 WBC RBC Hgb Hct MCV MCH MCHC RDW Plt Count MPV Neut % (Auto) Lymph % (Auto) [place] % (Auto) Eos % (Auto) Baso % (Auto) Neut # (Auto) Lymph # (Auto) [place] # (Auto) Eos # (Auto) Baso # (Auto) Immature Gran % Nucleated RBC % Immature Gran # Nucleated RBCs # Sodium Potassium Chloride Carbon Dioxide Anion Gap BUN Creatinine GFR Calculation BUN/Creatinine Ratio Glucose POC Glucose Calculated Osmolality Calcium Magnesium Blood Type B POSITIVE Antibody Screen Positive Antibody Identification Anti-K Crossmatch See Detail Preliminary micro results at discharge 12/24/16 19:10 Blood Culture - Preliminary Blood No growth at 3 days 12/24/16 19:10 Blood Culture - Preliminary Blood No growth at 3 days 12/26/16 11:45 Sputum Culture - Preliminary Sputum Normal Jennifer at 12 hours DS: Provider Date of admission: 12/24/16 13:11 Primary care physician: . No PCP Attending physician on admission: Elif Brennan MD Consults: 12/24/16 13:49 Consult to Physician [CONS] Routine Comment: Consulting Provider: Tommie Johnston Discharging clinician: Matehw Kan MD
== END 2016-12-28 11:37 | disposition home or self-care (01) | DRG 308 ==
LOC: N.ED 10:52 → N.EDINP 13:11 → SUATTDRO 13:11 → N.TELES 14:01
PROVIDERS: ADMIT Pediatrics; ATTEND Internal Medicine

== ENCOUNTER 2017-01-09 04:07 | Inpatient (IN) ==
--- NOTE | 2017-01-09 04:38 | Emergency Department Note ---
INirav Brittany, am scribing for, and in the presence of, Sunitha Arias DO 04:37. IHugo Debra, DO, personally performed the services described in this documentation, ascribed by Dora Gastelum in my presence, and it is both accurate and complete 438 . Arrival - Arrival Chief Complaint: Chest Pain Stated Complaint: CHEST AND BODY HURT ED Nursing Triage Note: to triage via wc with c/o chest pain and body aches since yesterday. lef sided cp that radiated to her neck, with n/v. last time to vomit about 0200 Mode of Arrival: Wheelchair - History of Present Illness HPI Narrative: Patient is a 61 y/o black female presenting to the ED with c/o left-sided chest pain with an onset of 2 days. Patient describes pain as beginning in the left chest wall, radiating into her neck. She has had some associated nausea, vomiting, and body aches, but denies any headache, fever, chills, diaphoresis, arm pain, back pain, abdominal pain, or near syncopal feeling. Patient reports that she takes Dialysis Wednesday, , and Wednesday, but did not make her appointment for last Dialysis appointment due to not feeling well. Family in room states that usually when patient attends Dialysis feeling ill she gets brought to the ED due to having increase in heart rate. Patient has presented to the ED on multiple occasions for the same complaint, with the last visit being on 12/24/16 with which she was admitted after having onset of rapid heartbeat immediately post Dialysis. Patient is currently on Diltiazem. Patient has no other complaint/pain. Onset (ago): day(s) (2) Consistency: constant Severity: moderate Severity scale (1-10): 6 Quality: aching Allergies/Adverse Reactions: Allergies Allergy/AdvReac Type Severity Reaction Status Date / Time codeine Allergy Severe Swelling Verified 04/12/16 19:35 of Lip/Tongue/Throat morphine AdvReac Intermediate Abdominal Verified 04/12/16 19:35 Pain olmesartan [From Benicar] AdvReac Unknown/Unable Verified 09/26/16 11:22 to obtain venlafaxine [From Effexor] AdvReac Abdominal Verified 09/26/16 11:22 Pain Home Medications: Home Medications Medication Instructions Recorded Confirmed Type Atorvastatin [Lipitor] 40 mg PO BEDTIME 12/10/15 01/09/17 History Multivitamin [One Daily] 1 tablet PO QAM 12/10/15 01/09/17 History dilTIAZem HCl [Diltiazem 24Hr ER] 300 mg PO QAM 12/10/15 01/09/17 History Montelukast Tab [Singulair Tab] 10 mg PO BEDTIME 02/02/16 01/09/17 History Insulin Detemir [Levemir FlexPen] 8 unit SUBCUT 1900 02/24/16 01/09/17 History Calcium Acetate 667 mg PO TID W/MEALS 06/16/16 01/09/17 History Ipratropium/Albuterol Sulfate 3 ml PO QID PRN 06/16/16 01/09/17 History [Iprat-Albut 0.5-3(2.5) mg/3 ml] Gabapentin 300 mg PO BEDTIME 09/26/16 01/09/17 History Methocarbamol 750 mg PO BID PRN 09/26/16 01/09/17 History Fluticasone/Salmeterol 250-50 1 puff INH QAM 10/03/16 01/09/17 History [Advair 250-50] Aspirin EC Tab 162.5 mg PO QAM 11/12/16 01/09/17 History Fluticasone Propionate 1 spray BOTH NARES BID PRN 11/12/16 01/09/17 History [Fluticasone 50 mcg Nasal [place]] Magnesium Oxide 400 mg PO QAM 11/12/16 01/09/17 History Pantoprazole Sodium 40 mg PO QAM 11/12/16 01/09/17 History Furosemide 160 mg PO BID 12/24/16 01/09/17 History Gabapentin 100 mg PO QAM 12/24/16 01/09/17 History Metoprolol Tartrate 50 mg PO BID 12/24/16 01/09/17 History hydrALAZINE TAB [Apresoline Tab] 100 mg PO TID 12/24/16 01/09/17 History raNITIdine HCl [Ranitidine HCl] 150 mg PO BID 12/24/16 01/09/17 History Amiodarone Tab [Cordarone Tab] 400 mg PO BID #90 tablet 12/28/16 01/09/17 Rx Review of System - Review of System 12 point system: reviewed and no additional remarkable complaints except as stated - Review of System Constitutional: Absent: chills, diaphoresis, fever Eyes: Absent: vision change Head/Ears/Nose/Throat: Absent: nasal drainage, sore throat Respiratory: Absent: respiratory distress Cardiovascular: Present: chest pain Gastrointestinal: Present: nausea, vomiting. Absent: abdominal pain Genitourinary female: Absent: dysuria, frequency, urgency Musculoskeletal: Present: neck pain. Absent: arm pain, back pain, leg pain Skin: Absent: rash Neurological: Absent: headache Psychiatric: Absent: anxiety, depression Medical,Surgical,& Family Hx - Medical History Cardio: History of: Cardiac Dysrhythmia (A-FIB), CHF, Hypertension No history of: CAD, CT, Pacemaker, PVD Psychological: History of: Anxiety Disorders, Depression Neurology: History of: Migraine No history of: Seizures, TIA HEENT: History of: Eye Problem (GLASSES/CATARCTS), HEENT Problems (SINUSITIS/ ALLERGIES) Endocrine: History of: Diabetes Mellitus (IDDM), Diabetes Mellitus (NIDDM), Dyslipidemia Respiratory: History of: Asthma, Bronchitis, COPD, Obstructive Sleep Apnea ( doesnt wear cpap), Respiratory Problems (DR. SALAZAR AT [facility]) No history of: Pulmonary Embolism Renal: History of: Dialysis (, , Wed), Renal Failure, Renal Problems ( [facility]) Gastrointestinal: History of: GERD No history of: Hepatitis Musculoskeletal: History of: Back/Neck Problems Hematology: History of: Anemia No history of: Blood Transfusion Reaction Other: No history of: Anesthesia Reactions, Cancer - Surgical History Cardiac Surgeries: Patient Denies: Vascular Access Devices HEENT Surgeries: Surgical HX of: Eye Surgery (FOR CATARACT LT 03/05/15) Reproductive Surgeries: Surgical HX of;: Section (X1), Hysterectomy ( WITH BSO), Tubal Ligation Orthopedic Surgeries: Surgical HX of;: Orthopedic Surgery (RIGHT KNEE SURG), Spinal Surgery ( BACK SURGERY) - Family History Family History: Reports;: Family Diabetes (MOTHER () and brother), Family Heart Disease (GRANDPARENTS/PARENTS), Family Hypertension (PARENTS), Family Stroke (sister) - Social History Smoking Status: Former smoker Frequency of Alcohol Use: None Type of Drug Use: None Exam Vital Signs: Vital Signs Temperature 98.9 F 01/11/17 12:00 Pulse Rate 69 01/11/17 15:00 Respiratory Rate 15 01/11/17 15:00 Blood Pressure 112/61 01/11/17 15:00 O2 Sat by Pulse Oximetry 100 01/11/17 15:00 - General General appearance: alert, in no apparent distress - Head Head exam: Present: atraumatic, normocephalic, normal inspection - Eye Eye exam: Present: normal appearance, PERRL, EOMI - ENT ENT exam: Present: normal exam, normal oropharynx - Neck Neck exam: Present: normal inspection, full ROM, trachea midline - Chest Chest inspection: Present: symmetric chest wall rise. Absent: normal inspection (dialysis port to the right chest wall) - Respiratory Respiratory exam: Present: normal lung sounds bilaterally - Cardiovascular Cardiovascular exam: Present: regular rate, normal rhythm, normal heart sounds - Abdominal Exam Abdominal exam: Present: soft, normal bowel sounds - Extremities Exam Extremities exam: Present: normal inspection - Back Exam Back exam: Present: normal inspection - Neurological Exam Neurological exam: Present: alert, oriented X3, CN II-XII intact. Absent: motor sensory deficit - Psychiatric Psychiatric exam: Present: normal affect, normal mood - Skin Skin exam: Present: warm, dry, intact, normal color Results - Labs CBC & BMP: 01/11/17 04:29 01/11/17 04:29 Lab Results: I have reviewed the patients labs Labs: Laboratory Tests 01/09/17 04:49 WBC 11.1 RBC 3.58 L Hgb 10.0 L Hct 32.4 L MCHC 30.9 L RDW 20.6 H Plt Count 235 Neut % (Auto) 77.9 H Lymph % (Auto) 9.7 L Neut # (Auto) 8.6 H Lymph # (Auto) 1.1 L Green # (Auto) 0.9 H - EKG EKG results: interpreted by ERMPalmer, sinus rhythm EKG shows: bradycardia - Diagnostic Findings Procedure: Chest x-ray: image reviewed by me Disposition Clinical Impression: Atypical chest pain Disposition: Still a Patient Condition: Stable Time of Disposition: 15:00
[2017-01-09] MEDS ORDERED: ATROPINE 1 MG/10 ML SYRINGE IV STA (04:41)
[2017-01-09] MEDS ORDERED: ATROPINE 1 MG/1 ML VIAL ONE (05:03)
[2017-01-09 05:07] LABS: Basophils # 0.1 10*3/uL (0.0-0.2); Basophils % 0.8 % (0.0-0.8); Eosinophils # 0.3 10*3/uL (0.0-0.87); Eosinophils % 2.8 % (0.00-10.9); Hematocrit 32.4 VOL% (35.7-47.0); Immature Granulocytes % 0.5 %; Immature Granulocytes Absolute 0.05 #; Lymphocytes # 1.1 10*3/uL (1.4-4.0); Lymphocytes % 9.7 % (21.3-54.2); Mean Corpuscular HGB Conc 30.9 GM/DL (32-36); Mean Corpuscular Hemoglobin 28 PG (27-34); Mean Corpuscular Volume 90.5 FL (87-102); Mean Platelet Volume 10.2 FL (9.6-12.0); Monocytes # 0.9 10*3/uL (0.11-0.8); Monocytes % 8.3 % (1.7-12.7); NRBC # 0.09 10*3/uL; Neutrophils # 8.6 10*3/uL (1.4-7.4); Neutrophils % 77.9 % (38.7-73.9); Platelet Count 235 T/CUMM (130-400); Red Blood Count 3.58 MC/CUMM (3.8-5.5); Red Cell Distribution Width 20.6 % (9.3-17.3); White Blood Count 11.1 T/CUMM (4-12)
[2017-01-09 05:15] LABS: INR 1.2; PT Patient Result 12.7 SECS; Partial Thromboplastin Time 30.1 SECS (0-40)
[2017-01-09 05:35] LABS: Alanine Aminotransferase 17 U/L (13-56); Albumin 2.7 G/DL (3.4-5.0); Alkaline Phosphatase 194 U/L (45-117); Aspartate Amino Transferase 27 U/L (0-37); Blood Urea Nitrogen 22 MG/DL (7-18); Calcium 8.8 MG/DL (8.5-10.1); Glucose 147 MG/DL (74-106); Osmolality,Calculated 284.4 MOS/KG (273-304); Potassium 3.6 MMOL/L (3.5-5.1); Sodium 140 MMOL/L (136-145); Total Protein 7.1 G/DL (6.4-8.3); Troponin I Only < 0.015 NG/ML (0.00-0.045)
--- NOTE | 2017-01-09 07:05 | XRay Report ---
Single view of the chest. Indication: Shortness of breath. Comparison: December 24, 2016. The heart is mildly enlarged. There is left atrial prominence. A dual-lumen catheter is in satisfactory position. The pulmonary vasculature is mildly prominent. There are scattered areas of atelectasis seen in both mid and lower lung zuleta. No pneumothorax or pleural effusion. No dense consolidation. Impression: Cardiomegaly and venous congestion. Areas of platelike atelectasis. No definite change from the previous. PROCEDURE INTERPRETED AT [facility] DEPARTMENT OF RADIOLOGY Final Report Signed by: Dr. Arianna Walls
--- NOTE | 2017-01-09 07:47 | Hospitalist History & Physical ---
Assessment and Plan (1) Bradycardia Status: Acute Assessment and plan: Cardiac monitoring. Hold medications. Pt. will require adjustment of medications. Consult cardiology. Current Visit: Yes (2) Chest pain Status: Acute Assessment and plan: Telemetry monitoring. Serial troponins and ekgs. Echo from previous admission reviewed EF is 55%. Current Visit: No (3) Congestive heart failure Status: Chronic Assessment and plan: BNP elevated. CXR showed cardiomegaly with venous congestion. No definite change from the previous. Current Visit: No (4) Diabetes mellitus Status: Chronic Assessment and plan: Accloceckbobbi garcias. SSI. A1c in am. Current Visit: No (5) ESRD on dialysis Status: Chronic Assessment and plan: Patient dialyzes Wednesday, , and Wednesday. Consult nephrology. Current Visit: No (6) COPD (chronic obstructive pulmonary disease) Status: Chronic Current Visit: No Qualifiers: History of Present Illness Chief complaint: chest pain History of present illness: Ms. Albert is a 61 year old black female with a history of GERD, CHF, A. fib, hypertension, diabetes, CEE, COPD, pneumonia, sepsis, end-stage renal disease on dialysis. Ms. Albert is well-known to our service. She has been admitted several times over the last few months. She was recently discharged on 12/28 after being admitted for A. fib with RVR. Today the patient presents to the ED with complaints of chest pain. On evaluation she was also found to be bradycardic. Patient stated that yesterday she began to experience midsternal chest pain that radiated to the left side. Patient also reported a rapid heartbeat. Patient states she only felt better after sitting in a chair. Patient reported nausea and vomiting with mild dizziness but denies shortness of breath, headache, fever, chills, diaphoresis, pain, back pain, abdominal pain , or neck pain. Patient stated that at the time of the episode she had just taken her medication. Patient takes metoprolol, amiodarone, and diltiazem among other medications. Patient normally dialyzes on Wednesday, , and Wednesday. Patient denies any other complaints in the ED at this time. She will be admitted to the hospitalist service for evaluation and treatment. Home Medications Medication Instructions Recorded Confirmed Type Atorvastatin [Lipitor] 40 mg PO BEDTIME 12/10/15 01/09/17 History Multivitamin [One Daily] 1 tablet PO QAM 12/10/15 01/09/17 History dilTIAZem HCl [Diltiazem 24Hr ER] 300 mg PO QAM 12/10/15 01/09/17 History Montelukast Tab [Singulair Tab] 10 mg PO BEDTIME 02/02/16 01/09/17 History Insulin Detemir [Levemir FlexPen] 8 unit SUBCUT 1900 02/24/16 01/09/17 History Calcium Acetate 667 mg PO TID W/MEALS 06/16/16 01/09/17 History Ipratropium/Albuterol Sulfate 3 ml PO QID PRN 06/16/16 01/09/17 History [Iprat-Albut 0.5-3(2.5) mg/3 ml] Gabapentin 300 mg PO BEDTIME 09/26/16 01/09/17 History Methocarbamol 750 mg PO BID PRN 09/26/16 01/09/17 History Fluticasone/Salmeterol 250-50 1 puff INH QAM 10/03/16 01/09/17 History [Advair 250-50] Aspirin EC Tab 162.5 mg PO QAM 11/12/16 01/09/17 History Fluticasone Propionate 1 spray BOTH NARES BID PRN 11/12/16 01/09/17 History [Fluticasone 50 mcg Nasal [place]] Magnesium Oxide 400 mg PO QAM 11/12/16 01/09/17 History Pantoprazole Sodium 40 mg PO QAM 11/12/16 01/09/17 History Furosemide 160 mg PO BID 12/24/16 01/09/17 History Gabapentin 100 mg PO QAM 12/24/16 01/09/17 History Metoprolol Tartrate 50 mg PO BID 12/24/16 01/09/17 History hydrALAZINE TAB [Apresoline Tab] 100 mg PO TID 12/24/16 01/09/17 History raNITIdine HCl [Ranitidine HCl] 150 mg PO BID 12/24/16 01/09/17 History Amiodarone Tab [Cordarone Tab] 400 mg PO BID #90 tablet 12/28/16 01/09/17 Rx Allergies Allergy/AdvReac Type Severity Reaction Status Date / Time codeine Allergy Severe Swelling Verified 04/12/16 19:35 of Lip/Tongue/Throat morphine AdvReac Intermediate Abdominal Verified 04/12/16 19:35 Pain olmesartan [From Benicar] AdvReac Unknown/Unable Verified 09/26/16 11:22 to obtain venlafaxine [From Effexor] AdvReac Abdominal Verified 09/26/16 11:22 Pain Medical,Surgical,& Family Hx - Medical History Cardio: History of: Cardiac Dysrhythmia (A-FIB), CHF, Hypertension No history of: CAD, [place], Pacemaker, PVD Psychological: History of: Anxiety Disorders, Depression Neurology: History of: Migraine No history of: Seizures, TIA HEENT: History of: Eye Problem (GLASSES/CATARCTS), HEENT Problems (SINUSITIS/ ALLERGIES) Endocrine: History of: Diabetes Mellitus (IDDM), Diabetes Mellitus (NIDDM), Dyslipidemia Respiratory: History of: Asthma, Bronchitis, COPD, Obstructive Sleep Apnea ( doesnt wear cpap), Respiratory Problems (DR. SALAZAR AT [facility]) No history of: Pulmonary Embolism Renal: History of: Dialysis (Tues, Th, Sat), Renal Failure, Renal Problems ( [facility]) Gastrointestinal: History of: GERD No history of: Hepatitis Musculoskeletal: History of: Back/Neck Problems Hematology: History of: Anemia No history of: Blood Transfusion Reaction Other: No history of: Anesthesia Reactions, Cancer - Surgical History Cardiac Surgeries: Patient Denies: Vascular Access Devices HEENT Surgeries: Surgical HX of: Eye Surgery (FOR CATARACT LT 03/05/15) Reproductive Surgeries: Surgical HX of;: Section (X1), Hysterectomy ( WITH BSO), Tubal Ligation Orthopedic Surgeries: Surgical HX of;: Orthopedic Surgery (RIGHT KNEE SURG), Spinal Surgery ( BACK SURGERY) - Family History Family History: Reports;: Family Diabetes (MOTHER () and brother), Family Heart Disease (GRANDPARENTS/PARENTS), Family Hypertension (PARENTS), Family Stroke (sister) - Social History Smoking Status: Former smoker Frequency of Alcohol Use: None Type of Drug Use: None Marital Status: Single Lives With:: Children Functional capacity: uses cane/walker - Constitutional Constitutional: Present: weakness. Absent: chills, fever(s) - EENT Eyes: Present: loss of vision, requires corrective lense Ears: Absent: decreased hearing, ear discharge Nose, mouth and throat: Absent: epistaxis, headache(s) - Cardiovascular Cardiovascular: Present: chest pain at rest, edema (intermittent) - Gastrointestinal Gastrointestinal: Present: nausea, vomiting. Absent: abdominal pain - Genitourinary Genitourinary: Absent: urinary frequency, urinary incontinence - Musculoskeletal Musculoskeletal: Absent: back pain - Neurological Neurological: Absent: confusion, headache(s) - Psychiatric Psychiatric: Present: depression. Absent: confusion - Hematologic/Lymphatic Hematologic/Lymphatic: Absent: easy bleeding Exam - Constitutional Vitals: Period Temp Pulse Resp BP Sys/Gonzalez Pulse Ox Last 24 Hr 97.3 F-97.3 F 35-35 20-20 84-84/46-46 94 General appearance: no acute distress, over weight - Head Head exam: Present: normal inspection, normocephalic - Eye Eye exam: Present: EOMI. Absent: periorbital swelling Pupils: Present: JOSE. Absent: dilated - ENT ENT exam: Present: normal exam - Neck Neck exam: Present: normal inspection. Absent: thyromegaly - Respiratory Respiratory exam: Present: clear to auscultation bilaterally - Cardiovascular Cardiovascular exam: Present: bradycardia - GI/Abdominal GI/Abdominal exam: Present: normal bowel sounds, soft. Absent: tenderness - Extremities Exam Extremities exam: Present: normal capillary refill, full ROM. Absent: edema - Neurological Exam Neurological exam: Present: alert, oriented X3, normal gait - Psychiatric Psychiatric exam: Present: normal affect, normal mood - Skin Skin exam: Present: normal color, warm, dry Results - Labs CBC & BMP: 01/09/17 04:49 01/09/17 04:49 Lab Results: I have reviewed the past 24 hour labs
[2017-01-09] MEDS ORDERED: METHOCARBAMOL 750 MG TABLET PO PRN (08:22)
[2017-01-09] MEDS ORDERED: ALBUTEROL/IPRATROPIUM 3 ML NEB RESP TX PRN (08:22)
[2017-01-09] MEDS ORDERED: DOCUSATE SODIUM 100 MG CAPSULE PO PRN (08:22)
[2017-01-09] MEDS ORDERED: FLUTICASONE 50 MCG NASAL SPRAY 16 GM BOTTLE BOTH NARES PRN (08:22)
[2017-01-09] MEDS ORDERED: DEXTROSE 50% 25 GM/50 ML VIAL IV PRN (08:26)
[2017-01-09] MEDS ORDERED: GLUCAGON 1 MG VIAL IM PRN (08:26)
[2017-01-09] MEDS ORDERED: GABAPENTIN 100 MG CAPSULE PO SCH (09:00)
--- NOTE | 2017-01-09 09:44 | EKG Report ---
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
[2017-01-09] MEDS: CALCIUM ACETATE 667 MG CAPSULE PO SCH ×3 (09:52→17:54)
[2017-01-09] MEDS: MULTIVITAMIN (CENTRUM) TABLET PO SCH (09:52)
[2017-01-09] MEDS: MAGNESIUM OXIDE 400 MG TABLET PO SCH (09:53)
[2017-01-09] MEDS: ASPIRIN EC 325 MG TABLET PO SCH (09:53)
[2017-01-09] MEDS: FAMOTIDINE 20 MG TABLET PO SCH ×2 (09:53→20:57)
[2017-01-09] MEDS: PANTOPRAZOLE 40 MG TABLET PO SCH (09:53)
[2017-01-09] MEDS: FLUTICASONE/SALMETEROL 250-50 DISKUS 14 DOSE INH SCH (09:58)
--- NOTE | 2017-01-09 10:50 | Nephrology Consult Note ---
History of Present Illness Chief complaint: End stage renal disease in a patient admitted for shortness of breath History of present illness: Ms. Albert is a 61 year old female who dialyzes on a Wednesday basis in [place] patient presented to the emergency room this morning with complaints of shortness of breath. She states the symptoms awoke her from sleep this morning. The patient on presentation to the ER was noted to have a heart rate of 35. The patient was recently released from the hospital for shortness of breath and tachycardia. Patient was found to have atrial fibrillation at that time with of breath ventricular response she was started on amiodarone at that time in addition the patient was discharged on diltiazem and metoprolol. The patient states she has been having some associated chest pain since with her symptoms. The patient states she was short of breath as well but this improved after dialysis that day. The patient denies any cough. ROS: Head - denies headaches ENT - denies sore throat Lymphatics - denies lymphadenopathy Hematology -complains of some epistaxis Heart -positive chest pain Lungs -positive shortness of breath Abdomen - denies abdominal pain Musculoskeletal - denies arthritis Skin - denies rash Neurology - denies stroke General - denies fever PE: General: in no acute distress Eyes: Pupils are round and reactive, conjunctivae are clear ENT: Nose is clear, O/P is benign Neck: Supple, no thyromegaly Lymphatics: No cervical, supraclavicular or axillary adenopathy Heart: Regular rate and rhythm, no edema Lungs: Clear to auscultation anteriorly, chest expansion symmetric Abdomen: Soft, normoactive bowel sounds, no hepatomegaly Musculoskeletal: No joint erythema or effusions or joint asymmetry Skin: Normal turgor, normal hydration, no rash Neuro/Psych: Alert and cooperative with fair insight Home Medications Medication Instructions Recorded Confirmed Type Atorvastatin [Lipitor] 40 mg PO BEDTIME 12/10/15 01/09/17 History Multivitamin [One Daily] 1 tablet PO QAM 12/10/15 01/09/17 History dilTIAZem HCl [Diltiazem 24Hr ER] 300 mg PO QAM 12/10/15 01/09/17 History Montelukast Tab [Singulair Tab] 10 mg PO BEDTIME 02/02/16 01/09/17 History Insulin Detemir [Levemir FlexPen] 8 unit SUBCUT 1900 02/24/16 01/09/17 History Calcium Acetate 667 mg PO TID W/MEALS 06/16/16 01/09/17 History Ipratropium/Albuterol Sulfate 3 ml PO QID PRN 06/16/16 01/09/17 History [Iprat-Albut 0.5-3(2.5) mg/3 ml] Gabapentin 300 mg PO BEDTIME 09/26/16 01/09/17 History Methocarbamol 750 mg PO BID PRN 09/26/16 01/09/17 History Fluticasone/Salmeterol 250-50 1 puff INH QAM 10/03/16 01/09/17 History [Advair 250-50] Aspirin EC Tab 162.5 mg PO QAM 11/12/16 01/09/17 History Fluticasone Propionate 1 spray BOTH NARES BID PRN 11/12/16 01/09/17 History [Fluticasone 50 mcg Nasal [place]] Magnesium Oxide 400 mg PO QAM 11/12/16 01/09/17 History Pantoprazole Sodium 40 mg PO QAM 11/12/16 01/09/17 History Furosemide 160 mg PO BID 12/24/16 01/09/17 History Gabapentin 100 mg PO QAM 12/24/16 01/09/17 History Metoprolol Tartrate 50 mg PO BID 12/24/16 01/09/17 History hydrALAZINE TAB [Apresoline Tab] 100 mg PO TID 12/24/16 01/09/17 History raNITIdine HCl [Ranitidine HCl] 150 mg PO BID 12/24/16 01/09/17 History Amiodarone Tab [Cordarone Tab] 400 mg PO BID #90 tablet 12/28/16 01/09/17 Rx Allergies Allergy/AdvReac Type Severity Reaction Status Date / Time codeine Allergy Severe Swelling Verified 04/12/16 19:35 of Lip/Tongue/Throat morphine AdvReac Intermediate Abdominal Verified 04/12/16 19:35 Pain olmesartan [From Benicar] AdvReac Unknown/Unable Verified 09/26/16 11:22 to obtain venlafaxine [From Effexor] AdvReac Abdominal Verified 09/26/16 11:22 Pain Medical,Surgical,& Family Hx - Medical History Cardio: History of: Cardiac Dysrhythmia (A-FIB), CHF, Hypertension No history of: CAD, [place], Pacemaker, PVD Psychological: History of: Anxiety Disorders, Depression Neurology: History of: Migraine No history of: Seizures, TIA HEENT: History of: Eye Problem (GLASSES/CATARCTS), HEENT Problems (SINUSITIS/ ALLERGIES) Endocrine: History of: Diabetes Mellitus (IDDM), Diabetes Mellitus (NIDDM), Dyslipidemia Respiratory: History of: Asthma, Bronchitis, COPD, Obstructive Sleep Apnea ( doesnt wear cpap), Respiratory Problems (DR. SALZAAR AT [facility]) No history of: Pulmonary Embolism Renal: History of: Dialysis (Tues, Th, Sat), Renal Failure, Renal Problems ( [facility]FF[facility]) Gastrointestinal: History of: GERD No history of: Hepatitis Musculoskeletal: History of: Back/Neck Problems Hematology: History of: Anemia No history of: Blood Transfusion Reaction Other: No history of: Anesthesia Reactions, Cancer - Surgical History Cardiac Surgeries: Sugical HX of: Vascular Access Devices HEENT Surgeries: Surgical HX of: Eye Surgery (FOR CATARACT LT 03/05/15) Reproductive Surgeries: Surgical HX of;: Section (X1), Hysterectomy ( WITH BSO), Tubal Ligation Orthopedic Surgeries: Surgical HX of;: Orthopedic Surgery (RIGHT KNEE SURG), Spinal Surgery ( BACK SURGERY) - Family History Family History: Reports;: Family Diabetes (MOTHER () and brother), Family Heart Disease (GRANDPARENTS/PARENTS), Family Hypertension (PARENTS), Family Stroke (sister) - Social History Smoking Status: Former smoker (Quit about a year ago) Frequency of Alcohol Use: None Type of Drug Use: None Exam - Vital Signs Vital signs: Period Temp Pulse Resp BP Sys/Gonzalez Pulse Ox Last 24 Hr 97.3 F-97.3 F 35-58 16-20 80-121/44-65 94-100 Results - Labs CBC & BMP: 01/09/17 04:49 01/09/17 04:49 Assessment and Plan (1) Bradycardia Status: Acute Assessment and plan: Patient's rate lowering medications are being held, her heart rate is improving. Current Visit: Yes (2) Acute dyspnea Status: Acute Assessment and plan: This patient has significant pulmonary hypertension with tricuspid regurgitation and pulmonary artery pressure of around 70 by echo done a few weeks ago. I think this gives her a low threshold for developing shortness of breath and the bradycardia certainly contributed to this symptomatology Current Visit: No (3) Anemia Status: Acute Assessment and plan: Patient's hematocrit is 32% Current Visit: No (4) Atrial fibrillation Status: Acute Current Visit: No Qualifiers: Atrial fibrillation type: paroxysmal Qualified Code(s): I48.0 - Paroxysmal atrial fibrillation (5) Chest pain Status: Acute Assessment and plan: Patient's cardiac isoenzymes are unremarkable Current Visit: No (6) End stage renal disease Status: Acute Assessment and plan: We will plan on dialyzing the patient today. Current Visit: No
--- NOTE | 2017-01-09 11:14 | Cardiology Consult Note ---
Assessment and Plan - Time spent with patient Time spent with patient: Greater than 30 minutes (1) Bradycardia Status: Acute Assessment and plan: SEE PLAN OF CARE LISTED BELOW Current Visit: Yes (2) Acute exacerbation of chronic obstructive airways disease Status: Acute Assessment and plan: SEE PLAN OF CARE LISTED BELOW Current Visit: No (3) Acute exacerbation of congestive heart failure Status: Acute Assessment and plan: SEE PLAN OF CARE LISTED BELOW Current Visit: No Qualifiers: Congestive heart failure type: diastolic Qualified Code(s): I50.33 - Acute on chronic diastolic (congestive) heart failure (4) Atrial fibrillation Status: Chronic Assessment and plan: SEE PLAN OF CARE LISTED BELOW Current Visit: No Qualifiers: Atrial fibrillation type: paroxysmal Qualified Code(s): I48.0 - Paroxysmal atrial fibrillation (5) Anemia in CKD (chronic kidney disease) Status: Chronic Assessment and plan: SEE PLAN OF CARE LISTED BELOW Current Visit: No (6) CKD (chronic kidney disease) stage 5, GFR less than 15 ml/min Status: Chronic Assessment and plan: SEE PLAN OF CARE LISTED BELOW Current Visit: No (7) COPD (chronic obstructive pulmonary disease) Status: Chronic Assessment and plan: SEE PLAN OF CARE LISTED BELOW Current Visit: No Qualifiers: (8) Congestive heart failure Status: Chronic Assessment and plan: SEE PLAN OF CARE LISTED BELOW Current Visit: No (9) End stage renal disease Status: Chronic Assessment and plan: SEE PLAN OF CARE LISTED BELOW Current Visit: No History of Present Illness - Data of Consult Patient: known to practice within the last 3 years Consult date: 01/09/17 Requesting Physician: Dionisio Scott - Consult Narrative Reason for consult: bradycardia 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 Albert, routinely followed by Dr. Pritchett. She was last seen in cardiology clinic December 21, 2016. Risk factors include: known highly complex hypertension, diabetes, dyslipidemia, sedentary lifestyle, remote tobaccoism. History of paroxysmal atrial fibrillation, ESRD (HD ), anemia, COPD and obstructive sleep apnea. Requiring dialysis Wednesday, , Wednesday). Patient currently takes aspirin for stroke prevention as she has failed ( worsening anemia) formal anticoagulation twice. Patient presented to the emergency department January 09, 2017 with complaints of left sided chest pain for 2 days. Patient reports it woke her from sleep last evening, was sharp and stabbing and intense. This was located across her chest , did not radiate or cause nausea or vomiting. She is chronically short of breath but more so over the past several days. In general, she felt "like I have the flu". She does have chest wall pain which is reproducible. This is the chest discomfort which woke her from sleep. Certain movements aggravate the discomfort as well as palpation. Sitting up certainly improves her shortness of breath and improves her chest pain. She is unable to write the discomfort on a scale of 1-10. She is currently chest pain-free other than when I palpate. Cardiac biomarkers are negative. EKG reveals nonspecific T- wave changes, unchanged from prior EKG. echo November 12, 2016: EF 65%, severely elevated right-sided pressure (76-81mmHg). While in the emergency department, she was found to be bradycardic. Heart rate recorded in her 30s. EKG at 0549 reveals sinus bradycardia 40 bpm. At this point, Amiodarone, Metoprolol, and Diltiazem have been held. Currently normal sinus rhythm, 60bpm. At this time, will continue to hold her martín blocking agents and monitor closely. Unfortunately, patient may eventually need a pacemaker if we cannot control her RVR without creating a bradycardic state. Blood pressure is adequately controlled at this time and we will incorporate antihypertensives as needed to control her blood pressure. Patient has "body aches". I will also hold her Atorvastatin and monitor her symptoms. Patient scheduled for hemodialysis today. Will treat her musculoskeletal chest pain with Tylenol, Gabapentin, Ultram. She may have a component of pericarditis and I will further discuss with Dr. Arrington and await additional recommendations. ASSESSMENT/PLAN: 1. CHEST PAIN - see above plan 2. BRADYCARDIA - holding agents and monitoring heart rate and rhythm. 3. PAF - currently NSR. Continue ASA for stroke prevention due to twice failed formal anticoagulation therapy 4. ESRD - HD today 5. BODY ACHES - holding Atorvastatin 6. CHF - Acute on chronic CHF secondary to diastolic dysfunction, NYHA Class III. HD today. Makes only a small amount of urine 7. COPD - continue current plan of care 8. PULMONARY HYPERTENSION - continue current plan of care. CC: Dionisio Scott MD - Home Medications and Allergies Home Medications: Home Medications Medication Instructions Recorded Confirmed Type Atorvastatin [Lipitor] 40 mg PO BEDTIME 12/10/15 01/09/17 History Multivitamin [One Daily] 1 tablet PO QAM 12/10/15 01/09/17 History dilTIAZem HCl [Diltiazem 24Hr ER] 300 mg PO QAM 12/10/15 01/09/17 History Montelukast Tab [Singulair Tab] 10 mg PO BEDTIME 02/02/16 01/09/17 History Insulin Detemir [Levemir FlexPen] 8 unit SUBCUT 1900 02/24/16 01/09/17 History Calcium Acetate 667 mg PO TID W/MEALS 06/16/16 01/09/17 History Ipratropium/Albuterol Sulfate 3 ml PO QID PRN 06/16/16 01/09/17 History [Iprat-Albut 0.5-3(2.5) mg/3 ml] Gabapentin 300 mg PO BEDTIME 09/26/16 01/09/17 History Methocarbamol 750 mg PO BID PRN 09/26/16 01/09/17 History Fluticasone/Salmeterol 250-50 1 puff INH QA 10/03/16 01/09/17 History [Advair 250-50] Aspirin EC Tab 162.5 mg PO QAM 11/12/16 01/09/17 History Fluticasone Propionate 1 spray BOTH NARES BID PRN 11/12/16 01/09/17 History [Fluticasone 50 mcg Nasal [place]] Magnesium Oxide 400 mg PO QAM 11/12/16 01/09/17 History Pantoprazole Sodium 40 mg PO QAM 11/12/16 01/09/17 History Furosemide 160 mg PO BID 12/24/16 01/09/17 History Gabapentin 100 mg PO QAM 12/24/16 01/09/17 History Metoprolol Tartrate 50 mg PO BID 12/24/16 01/09/17 History hydrALAZINE TAB [Apresoline Tab] 100 mg PO TID 12/24/16 01/09/17 History raNITIdine HCl [Ranitidine HCl] 150 mg PO BID 12/24/16 01/09/17 History Amiodarone Tab [Cordarone Tab] 400 mg PO BID #90 tablet 12/28/16 01/09/17 Rx Allergies/Adverse Reactions: Allergies Allergy/AdvReac Type Severity Reaction Status Date / Time codeine Allergy Severe Swelling Verified 04/12/16 19:35 of Lip/Tongue/Throat morphine AdvReac Intermediate Abdominal Verified 04/12/16 19:35 Pain olmesartan [From Benicar] AdvReac Unknown/Unable Verified 09/26/16 11:22 to obtain venlafaxine [From Effexor] AdvReac Abdominal Verified 09/26/16 11:22 Pain Review of systems: REVIEW OF SYSTEMS: - Constitutional Constitutional: Present: Fatigue. Absent: syncope, anorexia, night sweats - EENT Eyes: Absent: blurry vision, loss of vision, diplopia Ears: Absent: decreased hearing, ear pain, ear discharge - Cardiovascular Cardiovascular: Present: chest pain with exertion, movement. Dyspnea on exertion and at rest. Chest pain with deep breath. Denies edema, palpitations. Absent: claudication - Respiratory Respiratory: Present: CHERRY, denies cough. Absent: wheezing, hemoptysis, change in phlegm color - Gastrointestinal Gastrointestinal: Denies: constipation. Absent: adbominal pain, hematemesis, hematochezia, melena, change in bowel habits, nausea - Genitourinary Genitourinary: Absent: difficulty urinating, dysuria, urinary hesitancy, flank pain - Musculoskeletal Musculoskeletal: Present: back pain Absent: joint swelling, muscle cramps, muscle weakness - Neurological Neurological: Present: normal gait without frequent falls. Absent: dizziness, hemiparesis - Psychiatric Psychiatric: Absent: anxiety, depression, difficulty concentrating - Endocrine Endocrine: Present: fatigue. Absent: cold intolerance, heat intolerance, polyuria, polyphagia, polydipsia - Hematologic/Lymphatic Hematologic/Lymphatic: Present: easy bruising. Absent: easy bleeding -Integumentary Integumentary: Absent: lesions, rashes, skin breakdown Medical,Surgical,& Family Hx - Medical History Cardio: History of: Cardiac Dysrhythmia (A-FIB), CHF, Hypertension No history of: CAD, VT, Pacemaker, PVD Psychological: History of: Anxiety Disorders, Depression Neurology: History of: Migraine No history of: Seizures, TIA HEENT: History of: Eye Problem (GLASSES/CATARCTS), HEENT Problems (SINUSITIS/ ALLERGIES) Endocrine: History of: Diabetes Mellitus (IDDM), Diabetes Mellitus (NIDDM), Dyslipidemia Respiratory: History of: Asthma, Bronchitis, COPD, Obstructive Sleep Apnea ( doesnt wear cpap), Respiratory Problems (DR. SALAAZR AT [facility]) No history of: Pulmonary Embolism Renal: History of: Dialysis (Tues, Thurs, Sat), Renal Failure, Renal Problems ( DR[facility] TOP[facility]FF[facility]) Gastrointestinal: History of: GERD No history of: Hepatitis Musculoskeletal: History of: Back/Neck Problems Hematology: History of: Anemia No history of: Blood Transfusion Reaction Other: No history of: Anesthesia Reactions, Cancer - Surgical History Cardiac Surgeries: Sugical HX of: Vascular Access Devices HEENT Surgeries: Surgical HX of: Eye Surgery (FOR CATARACT LT 03/05/15) Reproductive Surgeries: Surgical HX of;: Section (X1), Hysterectomy ( WITH BSO), Tubal Ligation Orthopedic Surgeries: Surgical HX of;: Orthopedic Surgery (RIGHT KNEE SURG), Spinal Surgery ( BACK SURGERY) - Family History Family History: Reports;: Family Diabetes (MOTHER () and brother), Family Heart Disease (GRANDPARENTS/PARENTS), Family Hypertension (PARENTS), Family Stroke (sister) - Social History Smoking Status: Former smoker (Quit about a year ago) Frequency of Alcohol Use: None Type of Drug Use: None Physical Examination Vital Signs Temp Pulse Resp BP Pulse Ox 97.3 F L 35 L 20 84/46 94 L 01/09/17 04:10 01/09/17 04:10 01/09/17 04:10 01/09/17 04:10 01/09/17 04:10 General: [Appears well with no apparent distress.] [Pleasant and cooperative. ] [Appears comfortable.] HEENT: [PERRL, normocephalic, atraumatic. Mucous membranes moist. No jaundice noted. Conjunctiva moist and clear, sclerae anicteric] Neck: Difficult to assess for JVD due to habitus. No thyromegaly or lymphadenopathy noted. No carotid bruit appreciated Cardiac: [Regular rate and rhythm.] [No obvious murmur rub or gallop.] Lungs: [Clear to auscultation without accessory muscle use to assist the respiratory pattern.] Using oxygen intermittently Abdomen: Soft, bowel sounds normoactive. Nontender and nondistended. No abdominal bruit or thrill noted. No masses noted. Musculoskeletal: No fluid collection. Decreased range of motion is noted. Extremities: No clubbing, cyanosis noted. [ No edema noted.] Upper extremity pulses 2+. Lower extremity pulses 2+. Capillary refill less than 3 seconds. Skin: No unusual lesions or rashes. No skin breakdown appreciated. Neuro: Awake, alert and oriented 3. Moves all extremities well without hemiparesis or paralysis. No essential tremor is appreciated. Result/EKG - Labs CBC & BMP: 01/09/17 04:49 01/09/17 04:49 Lab Results: I have reviewed the past 24 hour labs Labs: Laboratory Results - last 24 hr 01/09/17 01/09/17 01/09/17 04:49 04:49 04:49 WBC 11.1 RBC 3.58 L Hgb 10.0 L Hct 32.4 L MCV 90.5 MCH 28 MCHC 30.9 L RDW 20.6 H Plt Count 235 MPV 10.2 Neut % (Auto) 77.9 H Lymph % (Auto) 9.7 L [place] % (Auto) 8.3 Eos % (Auto) 2.8 Baso % (Auto) 0.8 Neut # (Auto) 8.6 H Lymph # (Auto) 1.1 L [place] # (Auto) 0.9 H Eos # (Auto) 0.3 Baso # (Auto) 0.1 Immature Gran % 0.5 Nucleated RBC % 0.8 Immature Gran # 0.05 Nucleated RBCs # 0.09 INR 1.2 PT Patient/Control Mix 12.7 Circ Anticoag PTT 30.1 Sodium 140 Potassium 3.6 Chloride 105 Carbon Dioxide 22 Anion Gap 16.6 H BUN 22 H Creatinine 4.00 H GFR Calculation 13 BUN/Creatinine Ratio 5.00 L Glucose 147 H Calculated Osmolality 284.4 Calcium 8.8 Total Bilirubin 1.00 AST 27 ALT 17 Alkaline Phosphatase 194 H Total Creatine Kinase 42 CK-MB (CK-2) < 1.0 Troponin I < 0.015 B-Natriuretic Peptide Total Protein 7.1 Albumin 2.7 L Globulin 4.4 H Albumin/Globulin Ratio 0.6 L 01/09/17 04:49 WBC RBC Hgb Hct MCV MCH MCHC RDW Plt Count MPV Neut % (Auto) Lymph % (Auto) [place] % (Auto) Eos % (Auto) Baso % (Auto) Neut # (Auto) Lymph # (Auto) [place] # (Auto) Eos # (Auto) Baso # (Auto) Immature Gran % Nucleated RBC % Immature Gran # Nucleated RBCs # INR PT Patient/Control Mix Circ Anticoag PTT Sodium Potassium Chloride Carbon Dioxide Anion Gap BUN Creatinine GFR Calculation BUN/Creatinine Ratio Glucose Calculated Osmolality Calcium Total Bilirubin AST ALT Alkaline Phosphatase Total Creatine Kinase CK-MB (CK-2) Troponin I B-Natriuretic Peptide 1870 H Total Protein Albumin Globulin Albumin/Globulin Ratio - Diagnostic Findings Procedure: Chest x-ray: report reviewed by me - EKG EKG results: interpreted by me EKG shows: bradycardia, sinus rhythm
[2017-01-09] MEDS ORDERED: hydrALAZINE 20 MG/1 ML VIAL IV PRN (11:44)
[2017-01-09] MEDS ORDERED: ACETAMINOPHEN 325 MG TABLET PO ONE (11:45)
[2017-01-09] MEDS: GABAPENTIN 100 MG CAPSULE PO SCH ×2 (12:38→20:57)
[2017-01-09] MEDS: INSULIN LISPRO 100 UNIT/ML SUBCUT SCH ×3 (12:38→21:00)
--- NOTE | 2017-01-09 14:21 | EKG Report ---
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
[2017-01-09] MEDS ORDERED: HEPARIN 10,000 UNIT/10 ML VIAL IV PRN (15:40)
[2017-01-09 16:15] LABS: Hepatitis A Ab IgM Quant 0.07 Index; Hepatitis A Ab IgM Result Negative (Negative); Hepatitis B Core IgM Quant 0.18 Index; Hepatitis B Core IgM Result Negative (Negative); Hepatitis B Surface Ag Quant 0.29 Index; Hepatitis B Surface Ag Result Negative (Negative); Hepatitis C Virus Ab Quant 0.15 Index; Hepatitis C Virus Ab Result Negative (Negative)
[2017-01-09 17:55] LABS: Troponin I Only 0.018 NG/ML (0.00-0.045)
[2017-01-09] MEDS: INSULIN GLARGINE 100 UNIT/ML SUBCUT SCH (18:00)
[2017-01-09] MEDS: ACETAMINOPHEN 325 MG TABLET PO PRN (18:04)
[2017-01-09] MEDS: MONTELUKAST 10 MG TABLET PO SCH (20:57)
[2017-01-09] MEDS: GABAPENTIN 300 MG CAPSULE PO SCH (20:57)
[2017-01-09] MEDS ORDERED: ATORVASTATIN 40 MG TABLET PO SCH (21:00)
[2017-01-10 05:29] LABS: Basophils # 0.1 10*3/uL (0.0-0.2); Basophils % 0.7 % (0.0-0.8); Eosinophils # 0.3 10*3/uL (0.0-0.87); Eosinophils % 2.6 % (0.00-10.9); Hematocrit 36.1 VOL% (35.7-47.0); Hemoglobin 11.4 GM/DL (12.0-16.0); Immature Granulocytes % 0.6 %; Immature Granulocytes Absolute 0.06 #; Lymphocytes # 1.2 10*3/uL (1.4-4.0); Lymphocytes % 11.2 % (21.3-54.2); Mean Corpuscular HGB Conc 31.6 GM/DL (32-36); Mean Corpuscular Hemoglobin 28 PG (27-34); Monocytes # 1.1 10*3/uL (0.11-0.8); Monocytes % 10.5 % (1.7-12.7); NRBC # 0.03 10*3/uL; Neutrophils # 7.8 10*3/uL (1.4-7.4); Neutrophils % 74.4 % (38.7-73.9); Platelet Count 262 T/CUMM (130-400); Red Blood Count 4.15 MC/CUMM (3.8-5.5); Red Cell Distribution Width 20.2 % (9.3-17.3); White Blood Count 10.5 T/CUMM (4-12)
[2017-01-10 06:01] LABS: Calcium 8.9 MG/DL (8.5-10.1); Risk Ratio 2.05
[2017-01-10 06:08] LABS: Free T4 (Free Thyroxine) 1.24 NG/DL (0.76-1.46); Thyroid Stimulating Hormone 1.47 uIU/ml (0.358-3.74)
[2017-01-10] MEDS: ACETAMINOPHEN 325 MG TABLET PO PRN ×2 (06:42→20:58)
--- NOTE | 2017-01-10 07:14 | EKG Report ---
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
--- NOTE | 2017-01-10 07:40 | EKG Report ---
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
[2017-01-10] MEDS: INSULIN LISPRO 100 UNIT/ML SUBCUT SCH ×3 (08:49→16:46)
[2017-01-10] MEDS ORDERED: PANTOPRAZOLE 40 MG TABLET PO SCH (09:00)
[2017-01-10] MEDS: GABAPENTIN 100 MG CAPSULE PO SCH ×2 (09:29→21:00)
[2017-01-10] MEDS: ASPIRIN EC 325 MG TABLET PO SCH (09:29)
[2017-01-10] MEDS: MULTIVITAMIN (CENTRUM) TABLET PO SCH (09:29)
--- NOTE | 2017-01-10 09:29 | Nephrology Progress Note ---
Nephrology - PN: Subj Interval history: Patient complains of chest pain this morning on her left side she states she has had it since dialysis yesterday. Review of systems pulmonary she denies shortness of breath Physical exam general the patient moderately ill-appearing Assessment/plan #1. End-stage renal disease-we will continue hemodialysis support 2. Bradycardia-patient tolerated is improved 3. Chest pain-patient had an EKG this morning, this does not look like any acute injury on my review, I am going to give her a bolus of saline to see if this improves her symptoms 4. Anemia-patient's hematocrit went from around 32% to 36% today Exam (PN)-Nephrology - Vital Signs Vital signs: Period Temp Pulse Resp BP Sys/Gonzalez Pulse Ox Last 24 Hr 98 F-99.3 F 72-79 16-22 95-123/58-69 94-100 - Lab 01/10/17 04:22 01/10/17 04:22 Most recent lab results Calcium 8.9 MG/DL (8.5-10.1) 01/10/17 04:22 Assessment and Plan (1) Bradycardia Status: Acute Assessment and plan: Patient's rate lowering medications are being held, her heart rate is improving. Current Visit: Yes (2) Acute dyspnea Status: Acute Assessment and plan: This patient has significant pulmonary hypertension with tricuspid regurgitation and pulmonary artery pressure of around 70 by echo done a few weeks ago. I think this gives her a low threshold for developing shortness of breath and the bradycardia certainly contributed to this symptomatology Current Visit: No (3) Anemia Status: Acute Assessment and plan: Patient's hematocrit is 32% Current Visit: No (4) Atrial fibrillation Status: Chronic Current Visit: No Qualifiers: Atrial fibrillation type: paroxysmal Qualified Code(s): I48.0 - Paroxysmal atrial fibrillation (5) Chest pain Status: Acute Assessment and plan: Patient's cardiac isoenzymes are unremarkable Current Visit: No (6) End stage renal disease Status: Acute Assessment and plan: We will plan on dialyzing the patient today. Current Visit: No
[2017-01-10] MEDS: PANTOPRAZOLE 40 MG TABLET PO SCH (09:30)
[2017-01-10] MEDS: CALCIUM ACETATE 667 MG CAPSULE PO SCH ×4 (09:30→17:29)
[2017-01-10] MEDS: FAMOTIDINE 20 MG TABLET PO SCH ×2 (09:30→21:00)
[2017-01-10] MEDS: MAGNESIUM OXIDE 400 MG TABLET PO SCH (09:30)
[2017-01-10] MEDS ORDERED: NITROGLYCERIN SL 0.4 MG TABLET SL PRN (09:32)
[2017-01-10] MEDS: FLUTICASONE/SALMETEROL 250-50 DISKUS 14 DOSE INH SCH (09:34)
--- NOTE | 2017-01-10 09:44 | Cardiology Progress Note ---
Assessment and Plan (1) Chest pain Status: Acute Assessment and plan: Her enzymes are nondiagnostic. I am going to consult pain management service to see if they can help with her pain control. Current Visit: No Cardiology - PN: Subj Interval history: Patient is complaining of a fairly continuous chest discomfort worse with deep breathing. It is clearly not anginal. It has been a continuous pain since several days ago. Several things to consider would be pericarditis or chest wall related pain. I may ask the pain consultants to see her and recommended how to manage her chronic pain. Exam (Progress Note) - Constitutional Vitals: Period Temp Pulse Resp BP Sys/Gonzalez Pulse Ox Last 24 Hr 98 F-99.3 F 72-79 16-22 95-123/58-69 94-100 Exam: General: She is in moderate pain. alert and oriented, mood and affect are normal HEENT: no new lesions, sclerae are clear, mouth and pharynx benign Neck: supple, trachea midline, no JVD noted Lungs: no rales ronchi or wheeze is noted. pt comfortable without accesory muscle use to assist with breathing CV: RRR no murmur rub or gallop is noted. Abd: soft and nontender, BSNA, no masses. Ext: no cyanosis, clubbing or edema Neuro: grossly intact without focal neurologic deficit. Result/EKG - Labs CBC & BMP: 01/10/17 04:22 01/10/17 04:22 Labs: Laboratory Results - last 24 hr 01/09/17 01/09/17 01/09/17 10:55 11:26 16:15 WBC RBC Hgb Hct MCV MCH MCHC RDW Plt Count MPV Neut % (Auto) Lymph % (Auto) [place] % (Auto) Eos % (Auto) Baso % (Auto) Neut # (Auto) Lymph # (Auto) [place] # (Auto) Eos # (Auto) Baso # (Auto) Immature Gran % Nucleated RBC % Immature Gran # Nucleated RBCs # Sodium Potassium Chloride Carbon Dioxide Anion Gap BUN Creatinine GFR Calculation BUN/Creatinine Ratio Glucose POC Glucose 93 66 L Hemoglobin A1c Calculated Osmolality Calcium Total Creatine Kinase 28 D CK-MB (CK-2) < 1.0 Troponin I 0.020 B-Natriuretic Peptide Triglycerides Cholesterol LDL Cholesterol VLDL Cholesterol HDL Cholesterol Heart Disease Risk Ratio Free T4 TSH 3rd Generation Hepatitis A IgM Ab Hep Bs Antigen Hep B Core IgM Ab Hepatitis C Antibody 01/09/17 01/09/17 01/09/17 17:31 19:36 Unknown WBC RBC Hgb Hct MCV MCH MCHC RDW Plt Count MPV Neut % (Auto) Lymph % (Auto) [place] % (Auto) Eos % (Auto) Baso % (Auto) Neut # (Auto) Lymph # (Auto) [place] # (Auto) Eos # (Auto) Baso # (Auto) Immature Gran % Nucleated RBC % Immature Gran # Nucleated RBCs # Sodium Potassium Chloride Carbon Dioxide Anion Gap BUN Creatinine GFR Calculation BUN/Creatinine Ratio Glucose POC Glucose 183 H Hemoglobin A1c Calculated Osmolality Calcium Total Creatine Kinase 42 D CK-MB (CK-2) < 1.0 Troponin I 0.018 B-Natriuretic Peptide Triglycerides Cholesterol LDL Cholesterol VLDL Cholesterol HDL Cholesterol Heart Disease Risk Ratio Free T4 TSH 3rd Generation Hepatitis A IgM Ab Negative Hep Bs Antigen Negative Hep B Core IgM Ab Negative Hepatitis C Antibody Negative 01/10/17 01/10/17 01/10/17 04:22 04:22 04:22 WBC 10.5 RBC 4.15 Hgb 11.4 L Hct 36.1 MCV 87.0 MCH 28 MCHC 31.6 L RDW 20.2 H Plt Count 262 MPV 10.0 Neut % (Auto) 74.4 H Lymph % (Auto) 11.2 L [place] % (Auto) 10.5 Eos % (Auto) 2.6 Baso % (Auto) 0.7 Neut # (Auto) 7.8 H Lymph # (Auto) 1.2 L [place] # (Auto) 1.1 H Eos # (Auto) 0.3 Baso # (Auto) 0.1 Immature Gran % 0.6 Nucleated RBC % 0.3 Immature Gran # 0.06 Nucleated RBCs # 0.03 Sodium 136 Potassium 3.0 L Chloride 97 L Carbon Dioxide 27 Anion Gap 15.0 BUN 14 Creatinine 3.10 H GFR Calculation 17 BUN/Creatinine Ratio 4.00 L Glucose 82 POC Glucose Hemoglobin A1c Calculated Osmolality 271.0 L Calcium 8.9 Total Creatine Kinase CK-MB (CK-2) Troponin I B-Natriuretic Peptide 2225 H Triglycerides 105 Cholesterol 127 LDL Cholesterol 53.0 VLDL Cholesterol 21.0 HDL Cholesterol 62 H Heart Disease Risk Ratio 2.05 Free T4 TSH 3rd Generation Hepatitis A IgM Ab Hep Bs Antigen Hep B Core IgM Ab Hepatitis C Antibody 01/10/17 01/10/17 01/10/17 04:22 04:22 06:57 WBC RBC Hgb Hct MCV MCH MCHC RDW Plt Count MPV Neut % (Auto) Lymph % (Auto) [place] % (Auto) Eos % (Auto) Baso % (Auto) Neut # (Auto) Lymph # (Auto) [place] # (Auto) Eos # (Auto) Baso # (Auto) Immature Gran % Nucleated RBC % Immature Gran # Nucleated RBCs # Sodium Potassium Chloride Carbon Dioxide Anion Gap BUN Creatinine GFR Calculation BUN/Creatinine Ratio Glucose POC Glucose 96 Hemoglobin A1c 5.1 Calculated Osmolality Calcium Total Creatine Kinase CK-MB (CK-2) Troponin I B-Natriuretic Peptide Triglycerides Cholesterol LDL Cholesterol VLDL Cholesterol HDL Cholesterol Heart Disease Risk Ratio Free T4 1.24 TSH 3rd Generation 1.470 Hepatitis A IgM Ab Hep Bs Antigen Hep B Core IgM Ab Hepatitis C Antibody
[2017-01-10] MEDS: SODIUM CHLORIDE 0.9% 500 ML IV SCH ×2 (10:00→12:28)
--- NOTE | 2017-01-10 12:02 | Pain Management Consult Note ---
Assessment and Plan (1) Muscle spasm Status: Acute Assessment and plan: I will add baclofen for muscle spasms Current Visit: Yes (2) Thoracic back pain Status: Acute Assessment and plan: Obtain CT scan of the thoracic spine to rule out acute compression fracture Current Visit: Yes (3) Back pain, lumbosacral Status: Acute Assessment and plan: Obtain CT scan of the lumbar spine today Current Visit: Yes (4) Acute chest wall pain Status: Acute Assessment and plan: Apply Lidoderm patch to the chest and rule out compression fracture which could cause radiating pain to the chest Current Visit: Yes History of Present Illness Chief complaint: chest wall pain History of present illness: Ms. Albert is a 61 year old female patient with chest pain, non cardiac in origin, with history of lumbar compression compression and kyphoplasty in the past. Patient is not a very good historian but it seems possible that she could have a compression fracture with radiating pain anteriorly that could explain her symptoms. Patient complains of claustrophobia so MRI may not be possible. I will go ahead and obtain CT scans of the thoracic and lumbar spine today Home Medications Medication Instructions Recorded Confirmed Type Atorvastatin [Lipitor] 40 mg PO BEDTIME 12/10/15 01/09/17 History Multivitamin [One Daily] 1 tablet PO QAM 12/10/15 01/09/17 History dilTIAZem HCl [Diltiazem 24Hr ER] 300 mg PO QAM 12/10/15 01/09/17 History Montelukast Tab [Singulair Tab] 10 mg PO BEDTIME 02/02/16 01/09/17 History Insulin Detemir [Levemir FlexPen] 8 unit SUBCUT 1900 02/24/16 01/09/17 History Calcium Acetate 667 mg PO TID W/MEALS 06/16/16 01/09/17 History Ipratropium/Albuterol Sulfate 3 ml PO QID PRN 06/16/16 01/09/17 History [Iprat-Albut 0.5-3(2.5) mg/3 ml] Gabapentin 300 mg PO BEDTIME 09/26/16 01/09/17 History Methocarbamol 750 mg PO BID PRN 09/26/16 01/09/17 History Fluticasone/Salmeterol 250-50 1 puff INH QAM 10/03/16 01/09/17 History [Advair 250-50] Aspirin EC Tab 162.5 mg PO QAM 11/12/16 01/09/17 History Fluticasone Propionate 1 spray BOTH NARES BID PRN 11/12/16 01/09/17 History [Fluticasone 50 mcg Nasal [place]] Magnesium Oxide 400 mg PO QAM 11/12/16 01/09/17 History Pantoprazole Sodium 40 mg PO QAM 11/12/16 01/09/17 History Furosemide 160 mg PO BID 12/24/16 01/09/17 History Gabapentin 100 mg PO QAM 12/24/16 01/09/17 History Metoprolol Tartrate 50 mg PO BID 12/24/16 01/09/17 History hydrALAZINE TAB [Apresoline Tab] 100 mg PO TID 12/24/16 01/09/17 History raNITIdine HCl [Ranitidine HCl] 150 mg PO BID 12/24/16 01/09/17 History Amiodarone Tab [Cordarone Tab] 400 mg PO BID #90 tablet 12/28/16 01/09/17 Rx Allergies Allergy/AdvReac Type Severity Reaction Status Date / Time codeine Allergy Severe Swelling Verified 04/12/16 19:35 of Lip/Tongue/Throat morphine AdvReac Intermediate Abdominal Verified 04/12/16 19:35 Pain olmesartan [From Benicar] AdvReac Unknown/Unable Verified 09/26/16 11:22 to obtain venlafaxine [From Effexor] AdvReac Abdominal Verified 09/26/16 11:22 Pain Medical,Surgical,& Family Hx - Medical History Cardio: History of: Cardiac Dysrhythmia (A-FIB), CHF, Hypertension No history of: CAD, [place], Pacemaker, PVD Psychological: History of: Anxiety Disorders, Depression Neurology: History of: Migraine No history of: Seizures, TIA HEENT: History of: Eye Problem (GLASSES/CATARCTS), HEENT Problems (SINUSITIS/ ALLERGIES) Endocrine: History of: Diabetes Mellitus (IDDM), Diabetes Mellitus (NIDDM), Dyslipidemia Respiratory: History of: Asthma, Bronchitis, COPD, Obstructive Sleep Apnea ( doesnt wear cpap), Respiratory Problems (DR. SALAZAR AT [place]) No history of: Pulmonary Embolism Renal: History of: Dialysis (Tues, , Wed), Renal Failure, Renal Problems ( DR[facility] TOPETE [facility]) Gastrointestinal: History of: GERD No history of: Hepatitis Musculoskeletal: History of: Back/Neck Problems Hematology: History of: Anemia No history of: Blood Transfusion Reaction Other: No history of: Anesthesia Reactions, Cancer - Surgical History Cardiac Surgeries: Sugical HX of: Vascular Access Devices HEENT Surgeries: Surgical HX of: Eye Surgery (FOR CATARACT LT 03/05/15) Reproductive Surgeries: Surgical HX of;: Section (X1), Hysterectomy ( WITH BSO), Tubal Ligation Orthopedic Surgeries: Surgical HX of;: Orthopedic Surgery (RIGHT KNEE SURG), Spinal Surgery ( BACK SURGERY) - Family History Family History: Reports;: Family Diabetes (MOTHER () and brother), Family Heart Disease (GRANDPARENTS/PARENTS), Family Hypertension (PARENTS), Family Stroke (sister) - Social History Smoking Status: Former smoker (Quit about a year ago) Frequency of Alcohol Use: None Type of Drug Use: None 12 point system: reviewed and no additional remarkable complaints except as stated - Musculoskeletal Musculoskeletal: Present: arthralgias, back pain, muscle cramps, muscle weakness Exam - Constitutional Vitals: Period Temp Pulse Resp BP Sys/Gonzalez Pulse Ox Last 24 Hr 98 F-98.9 F 74-82 16-20 95-123/58-69 94-100 General appearance: mild distress - Head Head exam: Present: normal inspection - Eye Eye exam: Present: EOMI Pupils: Present: JOSE - ENT ENT exam: Present: normal exam Ear exam: Present: intact Mouth exam: Present: normal external inspection - Neck Neck exam: Present: normal inspection - Respiratory Respiratory exam: Present: chest wall tenderness - Cardiovascular Cardiovascular exam: Present: RRR - GI/Abdominal GI/Abdominal exam: Present: normal bowel sounds - Extremities Exam Extremities exam: Present: normal inspection - Back Exam Back exam: Present: vertebral tenderness (Patient reports some point tenderness in thoracic and lumbar spine) - Neurological Exam Neurological exam: Present: alert - Skin Skin exam: Present: normal color Results - Labs CBC & BMP: 01/10/17 04:22 01/10/17 04:22 Lab Results: I have reviewed the past 24 hour labs
--- NOTE | 2017-01-10 13:20 | CT Report ---
CT of the lumbar spine without contrast. Indication: Low back pain. Degenerative disc disease. Compression fracture. Axial images were obtained with sagittal and coronal reconstructions. Comparison is made to a previous CT of the abdomen and pelvis dated November 25, 2016. The normal 4 doses of the lumbar spine is demonstrated. No malalignment on the lateral view. There is a thoracolumbar scoliosis, convex to the left. There is no loss of vertebral body height. At T11-T12, there is prominent left lateral osteophyte formation and there is prominent facet arthropathy. At T12-L1, there is prominent left lateral osteophyte formation and facet arthropathy, and ligamentum flavum hypertrophy with calcification. At L1-L2, there is moderate facet arthropathy. At L2-L3, there is mild circumferential disc bulging and moderate facet arthropathy. At L3-L4, there is mild circumferential disc bulging, ligamentum flavum hypertrophy, and prominent facet arthropathy, worse on the right, resulting in bilateral neural foraminal narrowing and a degree of canal stenosis. At L4-L5, there is circumferential disc bulging, with calcified posterior disc. There is prominent facet arthropathy, worse on the right, with ligamentum flavum hypertrophy. There is canal narrowing and bilateral neural foraminal narrowing. At L5-S1, there is right facet arthropathy, degenerative endplate change, and posterior disc bulging. No evidence of acute fracture. No lytic or blastic lesion. Impression: Scoliosis and spondylosis. The CT exam was performed using one or more of the following dose reduction techniques: Automated exposure control, adjustment of the mA and/or kV according to patient size, or use of iterative reconstruction technique. PROCEDURE INTERPRETED AT [facility] DEPARTMENT OF RADIOLOGY Final Report Signed by: Dr. Arianna Walls
--- NOTE | 2017-01-10 13:27 | CT Report ---
CT of the thoracic spine without contrast. Indication: Mid back pain. Comparison: Previous CT of the thorax dated December 24, 2016. Axial images were obtained with sagittal and coronal reconstructions. There is atelectasis present at the lung bases. There are central lobular emphysematous changes noted at the upper lung zuleta. There are punctate nodules present at the right apex. There are ground glass opacities bilaterally. There is a prominent scoliosis of the thoracolumbar spine, at the thoracic level this is convex to the right. Overall, there is an S-shaped configuration. At C5-C6, there is posterior osteophyte formation and posterior calcified disc bulging. There is no loss of vertebral body height. There is no evidence of fracture or lytic or blastic lesion. Impression: Scoliosis and degenerative change. Pulmonary pathology. No evidence of acute fracture. The CT exam was performed using one or more of the following dose reduction techniques: Automated exposure control, adjustment of the mA and/or kV according to patient size, or use of iterative reconstruction technique. PROCEDURE INTERPRETED AT [facility] [place] DEPARTMENT OF RADIOLOGY Final Report Signed by: Dr. Arianna Walls
[2017-01-10] MEDS: LIDOCAINE 5% PATCH TRANSDERM SCH (13:34)
--- NOTE | 2017-01-10 14:25 | Hospitalist Progress Note ---
Assessment and Plan - Time spent with patient Time spent with patient: Greater than 30 minutes (1) Chest pain not due to acute coronary syndrome Status: Acute Assessment and plan: CT spine showed chronic changes. F/u CT PE protocol report. Pain management consult. Current Visit: Yes (2) Acute chest wall pain Status: Acute Assessment and plan: See listed as above. Current Visit: Yes (3) Bradycardia Status: Resolved Assessment and plan: Hold betablocker for now Current Visit: Yes (4) Thoracic back pain Status: Acute Assessment and plan: Pain management. CT showed no acute chagnes. Current Visit: Yes (5) Back pain, lumbosacral Status: Acute Assessment and plan: See listed as above. Current Visit: Yes (6) End stage renal disease on dialysis Status: Acute Assessment and plan: Continue HD. Current Visit: No Hospitalist: Subjective Interval history: Still has chest pain across her chest wall. HR WNL. BP WNL. Received HD yesterday. No fever or abd pain. CT spine showed chronic changes today. Exam - Constitutional Vitals: Period Temp Pulse Resp BP Sys/Gonzalez Pulse Ox Last 24 Hr 98 F-98.9 F 74-82 18-20 95-123/58-69 94-100 Exam: GENERAL: NAD, AAOx3. HEENT: Pupils equally round and reactive to light, conjunctivae clear. Normal lips, teeth and gums. NECK: Supple without mass. HEART: RRR, no murmur. CHEST: Normal shape, fair air movement, no retractions. CV: RRR, no murmurs, 2+ peripheral pulses LUNGS: Clear to auscultation; no rales, rhonchi, or wheezes. ABDOMEN: Soft, nontender, and no hepatosplenomegaly. SKIN: No rash or edema. LYMPH: No anterior or posterior cervical, or supraclavicular lymphadenopathy. NEURO: No gross motor deficits noted Results - Labs CBC & BMP: 01/10/17 04:22 01/10/17 04:22
--- NOTE | 2017-01-10 14:51 | CT Report ---
CT the chest with intravenous contrast, PE protocol. Axial images were obtained with sagittal and coronal 2-D and sagittal and coronal 3-D reconstructions. 80 cc Omni 350. Comparison is made to a previous exam of December 24, 2016. Indication: Shortness of breath and chest pain. The thyroid gland is normal in size. Axillary lymph nodes with enlargement seen bilaterally. The heart is enlarged. There is a small pericardial effusion. There is coronary artery calcification. These are stable findings. No pleural effusion. No evidence of pulmonary thromboembolism. The thoracic aorta is of normal caliber. There is a stable enlarged precarinal lymph node, having a maximum diameter of 17 mm. Mildly enlarged subcarinal lymph nodes as well. No hilar lymphadenopathy. There are areas of atelectasis laterally, worse in the bases, which have progressed since the previous exam. Groundglass infiltrates have progressed since the previous exam. There is fatty infiltration of the liver. Visualized portion of the gallbladder appears to demonstrate edematous wall thickening. Digital changes are noted within the spinal column. Impression:: 1. No evidence of pulmonary thromboembolism. 2. Enlarged heart with stable small pericardial effusion. 3. Worsening atelectasis. Worsening groundglass infiltrates. 4. Bilateral axillary lymphadenopathy. 5. Suspected gallbladder wall thickening. The gallbladder is only minimally included on this exam. Right upper quadrant ultrasound recommended. The CT exam was performed using one or more of the following dose reduction techniques: Automated exposure control, adjustment of the mA and/or kV according to patient size, or use of iterative reconstruction technique. PROCEDURE INTERPRETED AT [facility] DEPARTMENT OF RADIOLOGY Final Report Signed by: Dr. Arianna Walls
[2017-01-10] MEDS: BACLOFEN 10 MG TABLET PO SCH ×2 (15:20→20:57)
[2017-01-10] MEDS: cefTRIAXone 1,000 MG in SODIUM CHLORIDE 0.9% 100 ML IV SCH (16:40)
[2017-01-10] MEDS: ONDANSETRON 4 MG/2 ML VIAL IV PRN (17:29)
[2017-01-10] MEDS: AZITHROMYCIN INJ 500 MG in SODIUM CHLORIDE 0.9% 250 ML IV SCH (17:31)
[2017-01-10] MEDS: ALBUTEROL/IPRATROPIUM 3 ML NEB RESP TX SCH (19:48)
[2017-01-10] MEDS: INSULIN GLARGINE 100 UNIT/ML SUBCUT SCH (20:57)
[2017-01-10] MEDS: MONTELUKAST 10 MG TABLET PO SCH (20:58)
[2017-01-10] MEDS: GABAPENTIN 300 MG CAPSULE PO SCH (21:00)
[2017-01-11] MEDS: ALBUTEROL/IPRATROPIUM 3 ML NEB RESP TX SCH ×4 (00:17→20:56)
[2017-01-11] MEDS: INSULIN LISPRO 100 UNIT/ML SUBCUT SCH ×5 (01:50→19:00)
[2017-01-11 04:58] LABS: Basophils # 0.1 10*3/uL (0.0-0.2); Basophils % 0.4 % (0.0-0.8); Eosinophils # 0.1 10*3/uL (0.0-0.87); Eosinophils % 0.7 % (0.00-10.9); Hematocrit 32.1 VOL% (35.7-47.0); Hemoglobin 10.1 GM/DL (12.0-16.0); Immature Granulocytes % 0.4 %; Immature Granulocytes Absolute 0.05 #; Lymphocytes # 1.2 10*3/uL (1.4-4.0); Lymphocytes % 10.5 % (21.3-54.2); Mean Corpuscular HGB Conc 31.5 GM/DL (32-36); Mean Corpuscular Hemoglobin 27 PG (27-34); Monocytes # 1.6 10*3/uL (0.11-0.8); Monocytes % 14.1 % (1.7-12.7); NRBC # 0.02 10*3/uL; Neutrophils # 8.3 10*3/uL (1.4-7.4); Neutrophils % 73.9 % (38.7-73.9); Platelet Count 228 T/CUMM (130-400); Red Blood Count 3.69 MC/CUMM (3.8-5.5); Red Cell Distribution Width 20.2 % (9.3-17.3); White Blood Count 11.3 T/CUMM (4-12)
[2017-01-11 05:27] LABS: Potassium 3.5 MMOL/L (3.5-5.1)
--- NOTE | 2017-01-11 06:00 | Pain Management Progress Note ---
Assessment and Plan (1) Muscle spasm Status: Acute Assessment and plan: I will add baclofen for muscle spasms 01/11 hold baclofen for now due to news seizures Current Visit: Yes (2) Thoracic back pain Status: Acute Assessment and plan: Obtain CT scan of the thoracic spine to rule out acute compression fracture Current Visit: Yes (3) Back pain, lumbosacral Status: Acute Assessment and plan: Obtain CT scan of the lumbar spine today Current Visit: Yes (4) Acute chest wall pain Status: Acute Assessment and plan: Apply Lidoderm patch to the chest and rule out compression fracture which could cause radiating pain to the chest Current Visit: Yes Pain - Subjective Interval history: CT scans of the thoracic and cervical spine did not reveal any acute changes or fractures. She does have some degenerative disc disease in the cervical spine. On when I walked into the patient's room this morning she she was having a seizure she is confused and had uncontrolled movements of upper extremities and is not arousable at this time patient does not have any history of seizures. Seizure protocol has been initiated at this time Exam - Constitutional Vitals: Period Temp Pulse Resp BP Sys/Gonzalez Pulse Ox Last 24 Hr 96.5 F-101.9 F 73-96 18-20 118-146/63-79 89-100 General appearance: other (epileptic) - Respiratory Respiratory exam: Present: clear to auscultation bilaterally - Cardiovascular Cardiovascular exam: Present: RRR - Neurological Exam Neurological exam: Present: altered - Skin Skin exam: Present: normal color Results - Labs CBC & BMP: 01/11/17 04:29 01/11/17 04:29 Lab Results: I have reviewed the past 24 hour labs
[2017-01-11] MEDS ORDERED: LORazepam 2 MG/1 ML VIAL ONE ×2 (06:11→06:16)
[2017-01-11] MEDS: LORazepam 2 MG/1 ML VIAL IV PRN (06:21)
[2017-01-11] MEDS: LIDOCAINE 5% PATCH TRANSDERM SCH (08:24)
[2017-01-11] MEDS: FLUTICASONE/SALMETEROL 250-50 DISKUS 14 DOSE INH SCH (08:24)
[2017-01-11] MEDS: FAMOTIDINE 20 MG TABLET PO SCH (08:24)
[2017-01-11] MEDS: ASPIRIN EC 325 MG TABLET PO SCH (08:24)
[2017-01-11] MEDS: CALCIUM ACETATE 667 MG CAPSULE PO SCH ×3 (08:24→16:55)
[2017-01-11] MEDS: PANTOPRAZOLE 40 MG TABLET PO SCH (08:24)
[2017-01-11] MEDS: MAGNESIUM OXIDE 400 MG TABLET PO SCH (08:24)
[2017-01-11] MEDS: MULTIVITAMIN (CENTRUM) TABLET PO SCH (08:24)
[2017-01-11] MEDS: GABAPENTIN 100 MG CAPSULE PO SCH (08:24)
[2017-01-11] MEDS ORDERED: PHENYTOIN INJ 1,000 MG in SODIUM CHLORIDE 0.9% 100 ML IV SCH (09:39)
--- NOTE | 2017-01-11 09:54 | Neurology Consult Note ---
History of Present Illness History of present illness: Ms. Albert is a 61 year old -German lady with a history of GERD, CHF, A. fib, hypertension, diabetes, CEE, COPD, pneumonia, sepsis, end-stage renal disease on dialysis. She was recently discharged on 12/28 after being admitted for A. fib with RVR. This time patient presents to the ED with complaints of chest pain. On evaluation she was also found to be bradycardic. This morning she had one generalized tonic clonic seizure. She was started on Ativan. She is postictal and under sedation at this point however she is a still jerking constantly off and on. Never had a seizure in her entire life. Home Medications Medication Instructions Recorded Confirmed Type Atorvastatin [Lipitor] 40 mg PO BEDTIME 12/10/15 01/09/17 History Multivitamin [One Daily] 1 tablet PO QAM 12/10/15 01/09/17 History dilTIAZem HCl [Diltiazem 24Hr ER] 300 mg PO QAM 12/10/15 01/09/17 History Montelukast Tab [Singulair Tab] 10 mg PO BEDTIME 02/02/16 01/09/17 History Insulin Detemir [Levemir FlexPen] 8 unit SUBCUT 1900 02/24/16 01/09/17 History Calcium Acetate 667 mg PO TID W/MEALS 06/16/16 01/09/17 History Ipratropium/Albuterol Sulfate 3 ml PO QID PRN 06/16/16 01/09/17 History [Iprat-Albut 0.5-3(2.5) mg/3 ml] Gabapentin 300 mg PO BEDTIME 09/26/16 01/09/17 History Methocarbamol 750 mg PO BID PRN 09/26/16 01/09/17 History Fluticasone/Salmeterol 250-50 1 puff INH QAM 10/03/16 01/09/17 History [Advair 250-50] Aspirin EC Tab 162.5 mg PO QAM 11/12/16 01/09/17 History Fluticasone Propionate 1 spray BOTH NARES BID PRN 11/12/16 01/09/17 History [Fluticasone 50 mcg Nasal [place]] Magnesium Oxide 400 mg PO QAM 11/12/16 01/09/17 History Pantoprazole Sodium 40 mg PO QAM 11/12/16 01/09/17 History Furosemide 160 mg PO BID 12/24/16 01/09/17 History Gabapentin 100 mg PO QAM 12/24/16 01/09/17 History Metoprolol Tartrate 50 mg PO BID 12/24/16 01/09/17 History hydrALAZINE TAB [Apresoline Tab] 100 mg PO TID 12/24/16 01/09/17 History raNITIdine HCl [Ranitidine HCl] 150 mg PO BID 12/24/16 01/09/17 History Amiodarone Tab [Cordarone Tab] 400 mg PO BID #90 tablet 12/28/16 01/09/17 Rx Allergies Allergy/AdvReac Type Severity Reaction Status Date / Time codeine Allergy Severe Swelling Verified 04/12/16 19:35 of Lip/Tongue/Throat morphine AdvReac Intermediate Abdominal Verified 04/12/16 19:35 Pain olmesartan [From Benicar] AdvReac Unknown/Unable Verified 09/26/16 11:22 to obtain venlafaxine [From Effexor] AdvReac Abdominal Verified 09/26/16 11:22 Pain ROS unobtainable: due to mental status Medical,Surgical,& Family Hx - Medical History Cardio: History of: Cardiac Dysrhythmia (A-FIB), CHF, Hypertension No history of: CAD, [place], Pacemaker, PVD Psychological: History of: Anxiety Disorders, Depression Neurology: History of: Migraine No history of: Seizures, TIA HEENT: History of: Eye Problem (GLASSES/CATARCTS), HEENT Problems (SINUSITIS/ ALLERGIES) Endocrine: History of: Diabetes Mellitus (IDDM), Diabetes Mellitus (NIDDM), Dyslipidemia Respiratory: History of: Asthma, Bronchitis, COPD, Obstructive Sleep Apnea ( doesnt wear cpap), Respiratory Problems (DR. SALAZAR AT [facility]) No history of: Pulmonary Embolism Renal: History of: Dialysis (, , Wed), Renal Failure, Renal Problems ( DR. TOPETE [facility]SUFFICIENC[facility]) Gastrointestinal: History of: GERD No history of: Hepatitis Musculoskeletal: History of: Back/Neck Problems Hematology: History of: Anemia No history of: Blood Transfusion Reaction Other: No history of: Anesthesia Reactions, Cancer - Surgical History Cardiac Surgeries: Sugical HX of: Vascular Access Devices HEENT Surgeries: Surgical HX of: Eye Surgery (FOR CATARACT LT 03/05/15) Reproductive Surgeries: Surgical HX of;: Section (X1), Hysterectomy ( WITH BSO), Tubal Ligation Orthopedic Surgeries: Surgical HX of;: Orthopedic Surgery (RIGHT KNEE SURG), Spinal Surgery ( BACK SURGERY) - Family History Family History: Reports;: Family Diabetes (MOTHER () and brother), Family Heart Disease (GRANDPARENTS/PARENTS), Family Hypertension (PARENTS), Family Stroke (sister) - Social History Smoking Status: Former smoker Frequency of Alcohol Use: None Type of Drug Use: None Exam - Constitutional Vitals: Period Temp Pulse Resp BP Sys/Gonzalez Pulse Ox Last 24 Hr 96.5 F-101.9 F 73-96 16-20 118-146/63-85 89-100 Exam: GENERAL: Patient is in no acute distress. NECK: Neck is supple. There is no JVD. No carotid bruits present. No thyroid masses. CVS: First and second heart sounds are normal. There is no S3 present. Regular rate and rhythm. RESPIRATORY: Lungs are clear to auscultation without any rales or rhonchi. ABDOMEN: Soft and non-tender. Bowel sounds are present. There is no hepatosplenomegaly. EXT: There is no palpable edema. Peripheral pulses are present. Skin: No rashes Central Nervous system: General: Sedated/unresponsive Speech: None Comprehension: None Facial expressions: Normal Cranial Nerves: Pupils are sluggish but reactive. Doll's head eye movements are positive. No facial asymmetry seen. Motor: Bulk and Tone is normal. Continuous periodic jerking seen primarily in the left side. Strength cannot be assessed Sensory: Cannot be assessed Reflexes: 1+ and symmetrical Cerebellar function: Cannot be assessed Toes: Equivocal Gait: Cannot be assessed Results - Labs CBC & BMP: 01/11/17 04:29 01/11/17 04:29 Assessment and Plan (1) Status epilepticus Status: Acute Assessment and plan: Start Dilantin 1 g IV followed by 100 mg IV every 8 EEG MRI brain Moved to CCU/ICu Current Visit: Yes
--- NOTE | 2017-01-11 10:20 | Pulmonology Consult Note ---
History of Present Illness Chief complaint: COPD. CRF. Known to you. History of present illness: Willi Leblanc, ANP-BC, GNP-BC, acting as scribe for Dr. Guillermo Johnson Ms. Albert is a 61 year old black female dialysis patient who we have been asked to see in pulmonary consultation for evaluation and treatment. The request for consultation was made by Dr. Scott. She presented to [facility] emergency room on 01/09/2017 with complaints of chest pain. Chest pain had started the day before admission. It was midsternal and radiated to the left side. She also felt like she had an elevated heart rate. On evaluation, the patient was found to be bradycardic. And was admitted for further evaluation and care. At sometime early this morning, the patient experienced a first-time seizure. She is presently sedated and apparently postictal. There is some movement in her upper extremities. She is going to be evaluated by Dr. Ricks. The patient is unable to answer any questions. Therefore, her review of systems and history is taken from her chart and nursing staff. There is no reported increased shortness of breath or dyspnea on exertion. No reported dysphasia or reflux. No change in bowel or bladder habits. No TIA symptoms or syncope. No bleeding from any site. All other systems were reviewed and were negative. Allergies: Codeine. Morphine. Olmesartan. Venlafaxine. Home medicines: See list Past medical history: [facility] hospitalization 12/24/2016 through 12/28/2016 under care of the hospitalist. During that admission she was found to have A. fib with RVR. [facility] hospitalization 12/05/2016 through 12/07/2016 under the care of the hospitalists for end-stage renal disease and pulmonary vascular congestion with effusions. Patient has had several recent hospitalizations for fluid overload and pneumonia. On 11/11/2016 she had an AV fistula revision by Dr. Cesar at [facility]. She was sent home with [place] for pain. She is brought to the emergency room the next night by EMS for complaints of altered level of consciousness that started the next morning. It was felt that she was overmedicated secondary to the pain medication. She was given Narcan twice and apparently initially improved. She was admitted for further evaluation and care. She was discharged 11/26/2016. Multiple recent hospitalizations for pneumonia and/or heart failure. Heart disease. Atrial fib. Pulmonary edema. High blood pressure. Mild depression. Allergic sinusitis. insulin-dependent diabetes mellitus. Hyperlipidemia. Asthma. COPD. Chronic renal failure followed by Dr. Elías Singh. Gastroesophageal reflux disease. Surgeries: Cataract surgery. . Hysterectomy with bilateral salpingo- oophorectomy. Right knee surgery. Low back surgery. Family history: Mother has diabetes. Grandparents and parents had heart disease. Family history of high blood pressure including both parents Social history: Patient was a daily smoker until December 2015. She says she quit at that time after I discussed it with her in the office. Chest x-ray. Done 01/09/2017. My interpretation. Cardiomegaly. Atelectasis. Echocardiogram. 12/26/[address] Johnston showed normal left ventricular size with mild concentric hypertrophy with normal systolic function. Estimated left ventricular ejection fraction was 55%. The right ventricle was mildly dilated with normal function. Moderate tricuspid regurgitation severe pulmonary hypertension with an estimated pulmonary artery pressure 73 mmHg. There was mild eccentric mitral regurgitation and mild aortic valve sclerosis without stenosis or insufficiency. 11/17/[address] Albert showed left ventricle is normal in size and systolic function with ejection fraction 65%. There was flattening of the intraventricular septum consistent with elevated right-sided pressures. Left atrium was mildly dilated as was the right atrium. The right ventricle was in the upper limits of normal size with global hypokinesis. There is trace to mild mitral regurgitation, moderate to severe tricuspid regurgitation and severely elevated right-sided pressures estimated at 76-81 mmHg. 10/03/2016. Ejection fraction 45% with septal hypokinesis. Mild mitral regurgitation. Trace of aortic regurgitation. Pulmonary artery pressures were elevated 65-70 mmHg. Moderately increased left atrial size. Moderately increased right atrial size. Right ventricular size and function were normal. CT of the brain without contrast. Done 11/12/2016. No acute interval abnormality. Persistent atrophy and microvascular disease. MRI of the brain done 11/13/2016. No acute intracranial process was identified. Probable mild chronic microvascular ischemic changes similar to before and remote lacunar infarction within the right hemant. VQ lung scan done 11/17/2016 showed normal nuclear medicine ventilation/ perfusion scan. This was noted indicated a low probability for PE. Ultrasound of the gallbladder done 11/21/2016 showed nonspecific gallbladder wall thickening without cholelithiasis. No sonographic Escobar sign. Solid hyperechoic areas scattered in the liver. Hemangiomata were suspected. HIDA scan done 11/23/2016 showed radiotracer accumulation within the gallbladder suggesting patency of the cystic duct. The gallbladder ejection fraction was borderline low at 36% at [address] of abdomen and pelvis done 11/25/2016 showed probable 19 mm hemangioma of the right lobe of the liver. A repeat scan in 4-6 month is recommended. There is also diverticulosis without clementine diverticulitis. CT of the chest on 11/25/2016 showed no evidence of acute PE disease. Nonspecific mild mediastinal lymphadenopathy. Nonspecific reticular nodular infiltrate in the upper lung zones. CT of the chest done 12/24/2016 showed no PE. There was cardiomegaly with interval development of small pericardial effusion when compared to scan done . There is persistent coronary artery calcification with right IJ venous dialysis catheter. CT of the chest on 01/10/2017 showed no evidence of PE. Cardiomegaly with stable small pericardial effusions. Worsening atelectasis. Worsening groundglass infiltrates. Bilateral axillary lymphadenopathy. Suspected gallbladder wall thickening although the gallbladder was only minimally included on that exam. CT of the thoracic spine done 01/10/2017 showed scoliosis and degenerative changes. No evidence of acute fracture. CT of the lumbar spine and 01/10/2017 showed scoliosis and spondylosis. Laboratory: White count is 11,300 with 73.8% segs, 10.5% lymphs, and 14.1% monos ; H&H 10.1/32.1 with low to low normal indices and increased red blood cell distribution with; platelet count 228,000; creatinine 4.70, BUN 24, sodium 136, potassium 3.5, calcium 9.0, most recent BNP was 2225; fasting lipid profile showed a total cholesterol of 127, LDL 53, HDL 62, triglycerides 105; TSH and free T4 normal at 1.470 and 1.24 respectively; hemoglobin A1c is 5.1%; hepatitis panel is negative; liver function test within normal limits with the exception of a minimally elevated alkaline phosphate 194; cardiac isoenzymes are negative Home Medications Medication Instructions Recorded Confirmed Type Atorvastatin [Lipitor] 40 mg PO BEDTIME 12/10/15 01/09/17 History Multivitamin [One Daily] 1 tablet PO QAM 12/10/15 01/09/17 History dilTIAZem HCl [Diltiazem 24Hr ER] 300 mg PO QAM 12/10/15 01/09/17 History Montelukast Tab [Singulair Tab] 10 mg PO BEDTIME 02/02/16 01/09/17 History Insulin Detemir [Levemir FlexPen] 8 unit SUBCUT 1900 02/24/16 01/09/17 History Calcium Acetate 667 mg PO TID W/MEALS 06/16/16 01/09/17 History Ipratropium/Albuterol Sulfate 3 ml PO QID PRN 06/16/16 01/09/17 History [Iprat-Albut 0.5-3(2.5) mg/3 ml] Gabapentin 300 mg PO BEDTIME 09/26/16 01/09/17 History Methocarbamol 750 mg PO BID PRN 09/26/16 01/09/17 History Fluticasone/Salmeterol 250-50 1 puff INH QAM 10/03/16 01/09/17 History [Advair 250-50] Aspirin EC Tab 162.5 mg PO QAM 11/12/16 01/09/17 History Fluticasone Propionate 1 spray BOTH NARES BID PRN 11/12/16 01/09/17 History [Fluticasone 50 mcg Nasal [place]] Magnesium Oxide 400 mg PO QAM 11/12/16 01/09/17 History Pantoprazole Sodium 40 mg PO QAM 11/12/16 01/09/17 History Furosemide 160 mg PO BID 12/24/16 01/09/17 History Gabapentin 100 mg PO QAM 12/24/16 01/09/17 History Metoprolol Tartrate 50 mg PO BID 12/24/16 01/09/17 History hydrALAZINE TAB [Apresoline Tab] 100 mg PO TID 12/24/16 01/09/17 History raNITIdine HCl [Ranitidine HCl] 150 mg PO BID 12/24/16 01/09/17 History Amiodarone Tab [Cordarone Tab] 400 mg PO BID #90 tablet 12/28/16 01/09/17 Rx Allergies Allergy/AdvReac Type Severity Reaction Status Date / Time codeine Allergy Severe Swelling Verified 04/12/16 19:35 of Lip/Tongue/Throat morphine AdvReac Intermediate Abdominal Verified 04/12/16 19:35 Pain olmesartan [From Benicar] AdvReac Unknown/Unable Verified 09/26/16 11:22 to obtain venlafaxine [From Effexor] AdvReac Abdominal Verified 09/26/16 11:22 Pain Exam (Pulmonay) H&P - Constitutional Vitals: Period Temp Pulse Resp BP Sys/Gonzalez Pulse Ox Last 24 Hr 96.5 F-101.9 F 73-96 16-20 118-146/63-85 89-100 Exam: Psych: Presently not oriented; somnolent and apparently postictal HEENT: Pupils, irises, sclera, conjunctiva, and eyelids are normal. The face is symmetrical without rash or masses. Lips, tongue, buccal mucosa, soft and hard palates, and pharynx were unable to be examined at this time Neck: Symmetrical. Thyroid was not palpated. Lymphatics: No submandibular, cervical, or supraclavicular adenopathy Chest: Symmetrical without appreciable wheeze; mild loose large airway congestion Breasts: Deferred CV: Regular with a short grade 1/6 systolic ejection murmur at the left sternal border that does not radiate Arterial: Carotids with a good upstroke. There is no bruit. Upper extremity pulses are palpable. Lower extremity pulses are non-palpable, but I see no evidence of ischemia. Venous: Exam of the neck, upper, and lower extremities is normal Abd: No appreciable organomegaly, masses, tenderness, or bruit; Bowel sounds are positive 4; The aorta was not palpated /Rectal: Deferred Extremities: No clubbing, cyanosis, edema, or obvious DVT Skin: No cancerous or infectious lesions of the exposed, examined skin; the perineal area was not examined M/S: Age appropriate loss of the normal curvature of the cervical, thoracic, and lumbar spine Neurological: Unable to be adequately assessed. See above. The remainder of the exam was noncontributory. Impression: #1: New onset seizure #2: Bradycardia. Improved #3: COPD #4: Chronic renal failure which requires dialysis 3 days a week. Note, her normal schedule is Wednesday, , and Wednesday. #5: History of atrial fib #6: Past history of tobacco abuse. Patient stopped smoking December 2015. #7: Underlying heart disease with decreased ejection fraction. Mild mitral regurgitation. Mild pulmonary artery pressure elevation. #8: Past history of gastroesophageal reflux disease. Watch for reflux with microaspiration. #9: See past history Plan: #1: Follow-up neurology consult #2: Repeat chest x-ray today #3: Follow-up gallbladder ultrasound report when available #4: See orders We appreciate this consult and will follow along with you. Medical,Surgical,& Family Hx - Medical History Cardio: History of: Cardiac Dysrhythmia (A-FIB), CHF, Hypertension No history of: CAD, NV, Pacemaker, PVD Psychological: History of: Anxiety Disorders, Depression Neurology: History of: Migraine No history of: Seizures, TIA HEENT: History of: Eye Problem (GLASSES/CATARCTS), HEENT Problems (SINUSITIS/ ALLERGIES) Endocrine: History of: Diabetes Mellitus (IDDM), Diabetes Mellitus (NIDDM), Dyslipidemia Respiratory: History of: Asthma, Bronchitis, COPD, Obstructive Sleep Apnea ( doesnt wear cpap), Respiratory Problems ([facility]. SALAZ[facility]) No history of: Pulmonary Embolism Renal: History of: Dialysis (es, , Wed), Renal Failure, Renal Problems ( DR. SINGH CHRONIC RENAL INSUFFICIENCY) Gastrointestinal: History of: GERD No history of: Hepatitis Musculoskeletal: History of: Back/Neck Problems Hematology: History of: Anemia No history of: Blood Transfusion Reaction Other: No history of: Anesthesia Reactions, Cancer - Surgical History Cardiac Surgeries: Sugical HX of: Vascular Access Devices HEENT Surgeries: Surgical HX of: Eye Surgery (FOR CATARACT LT 03/05/15) Reproductive Surgeries: Surgical HX of;: Section (X1), Hysterectomy ( WITH BSO), Tubal Ligation Orthopedic Surgeries: Surgical HX of;: Orthopedic Surgery (RIGHT KNEE SURG), Spinal Surgery ( BACK SURGERY) - Family History Family History: Reports;: Family Diabetes (MOTHER () and brother), Family Heart Disease (GRANDPARENTS/PARENTS), Family Hypertension (PARENTS), Family Stroke (sister) - Social History Smoking Status: Former smoker Frequency of Alcohol Use: None Type of Drug Use: None Results - Labs CBC & BMP: 01/11/17 04:29 01/11/17 04:29
--- NOTE | 2017-01-11 10:28 | XRay Report ---
Portable chest Date: 01/11/2017 Clinical history: Seizure, aspiration, CHF Comparison: 01/09/2017 Technique: Portable AP sitting chest Findings: Stable cardiomegaly and right IJ venous dialysis catheter. Progressive atelectasis/infiltration/edema in both mid to lower lung zones. Persistent relative elevation of the right hemidiaphragm. Stable mediastinum and osseous structures. Impression: Progressive atelectasis/infiltration/edema in both mid to lower lung zones. PROCEDURE INTERPRETED AT [facility] DEPARTMENT OF RADIOLOGY Final Report Signed by: Dr. Fabienne Arevalo
[2017-01-11] MEDS ORDERED: PHENYTOIN INJ 1,000 MG in SODIUM CHLORIDE 0.9% 100 ML IV ONE (10:30)
--- NOTE | 2017-01-11 11:58 | Ultrasound Report ---
Exam: US gallbladder Date: 01/11/2017 4:00 AM Comparison: 11/21/2016 Indication: Reevaluation of gallbladder wall thickening Technique:[Multiple transabdominal real-time scans were obtained of the right upper quadrant. Color-flow scans obtained. Ultrasound images were captured and stored.] Findings: The scans are limited because of motion artifact. No gallstones are identified. The wall of the gallbladder measures 2.4 mm. CBD is normal in size measuring 3.8 mm. The liver is normal in size with 15 mm solid echogenic finding in the right lobe. Right kidney measures 81 mm in length with no masses or hydronephrosis. The pancreas, aorta including the aortic bifurcation, and IVC are obscured by bowel gas. Color flow documented in the portal vein. Impression: No gallstones identified. The wall of the gallbladder is not significantly thickened. 15 mm probable hepatic hemangioma with limited evaluation of the abdomen due to motion artifact and bowel gas. Cortical scarring in the right kidney. PROCEDURE INTERPRETED AT [facility] DEPARTMENT OF RADIOLOGY Final Report Signed by: Dr. Fabienne Arevalo
--- NOTE | 2017-01-11 12:37 | Nephrology Progress Note ---
Nephrology - PN: Subj Interval history: Patient is seen in ICU, she is sedate from Ativan Physical exam general the patient is chronically ill-appearing, heart regular rate and rhythm, she has no edema, lungs are clear to auscultation anteriorly, abdomen soft with positive bowel sounds Assessment/plan 1. End-stage renal disease-we will continue hemodialysis support 2. Bradycardia-this seems to have improved her latest heart rate was around 65 3. Diabetes mellitus 4. Anemia 5. Seizure disorder-patient had a seizure this morning she is being seen by neurology. I reviewed her medications for Sensipar as this can sometimes be associated with seizure she apparently is not taking this. Exam (PN)-Nephrology - Vital Signs Vital signs: Period Temp Pulse Resp BP Sys/Gonzalez Pulse Ox Last 24 Hr 96.5 F-101.9 F 60-96 12-20 114-146/60-85 89-100 - Lab 01/11/17 04:29 01/11/17 04:29 Most recent lab results Calcium 9.0 MG/DL (8.5-10.1) 01/11/17 04:29 Assessment and Plan (1) Bradycardia Status: Resolved Assessment and plan: Patient's rate lowering medications are being held, her heart rate is improving. Current Visit: Yes (2) Acute dyspnea Status: Acute Assessment and plan: This patient has significant pulmonary hypertension with tricuspid regurgitation and pulmonary artery pressure of around 70 by echo done a few weeks ago. I think this gives her a low threshold for developing shortness of breath and the bradycardia certainly contributed to this symptomatology Current Visit: No (3) Anemia Status: Acute Assessment and plan: Patient's hematocrit is 32% Current Visit: No (4) Atrial fibrillation Status: Chronic Current Visit: No Qualifiers: Atrial fibrillation type: paroxysmal Qualified Code(s): I48.0 - Paroxysmal atrial fibrillation (5) Chest pain Status: Acute Assessment and plan: Patient's cardiac isoenzymes are unremarkable Current Visit: No (6) End stage renal disease Status: Acute Assessment and plan: We will plan on dialyzing the patient today. Current Visit: No
--- NOTE | 2017-01-11 13:53 | Event Note ---
While rounding in the ICU, attempted to see . Tiff Albert. However, she was gone to MRI at this time.
--- NOTE | 2017-01-11 14:25 | Magnetic Resonance Report ---
Exam: MR head/brain wo con Date: 01/11/2017 9:41 AM Comparison: 11/13/2016 Indication: New onset seizure Technique:[Multiple acquisitions were obtained including sagittal T1, coronal T2, and axial ADC, diffusion, FLAIR, T2, GRE, and T1 scans without contrast only. Findings: The ventricles remain normal in size with no midline displacement. The pituitary has a normal appearance and the cerebellar tonsils are normal in their location. No acute infarction is identified on the diffusion scans. No evidence of hemorrhage, definite mass, or extracerebral collection. Enlarged perivascular spaces are noted which represent a normal variant. Diffuse atrophy and persistent FLAIR/T2 hyperintensities. Chronic right pontine lacunar infarction. No acute findings in the paranasal sinuses, orbits, temporal bones, or point lay ira of [place]. Impression: No definite acute intracranial pathology identified. Chronic right pontine lacunar infarction. Persistent minimal microvascular disease. T2 hyperintensities can also be associated with demyelinating disease, vasculitis, viral illness, etc. Enlarged perivascular spaces are noted which represent a normal variant. PROCEDURE INTERPRETED AT [facility] DEPARTMENT OF RADIOLOGY Final Report Signed by: Dr. Fabienne Arevalo
[2017-01-11] MEDS: cefTRIAXone 1,000 MG in SODIUM CHLORIDE 0.9% 100 ML IV SCH (16:03)
[2017-01-11] MEDS: AZITHROMYCIN INJ 500 MG in SODIUM CHLORIDE 0.9% 250 ML IV SCH (17:14)
[2017-01-11] MEDS: PHENYTOIN 100 MG/2 ML VIAL IV SCH (17:16)
--- NOTE | 2017-01-11 18:57 | Cardiology Progress Note ---
Assessment and Plan (1) End stage renal disease Status: Chronic Current Visit: No (2) Atypical chest pain Status: Acute Assessment and plan: 1. 61-year-old with intermittent very atypical chest pain, reported paroxysmal atrial fibrillation in the past, now status post reported seizure (she appears postictal; unable to obtain history) 2. Chronic atrial fibrillation 3. Hemodynamically stable 4. EF 55% November 2016, presented with elevated BNP likely some diastolic dysfunction related to her renal disease 5. Hypertension is controlled 6. MRI appears to show no acute change with old stroke 7. Sign off; please reconsult if needed. Current Visit: Yes Cardiology - PN: Subj Interval history: Ms. Albert is back from CT and does not respond to verbal or light tactile stimuli. However she is hemodynamically stable. She reportedly had a dose of Versed but that was several hours ago. Exam (Progress Note) - Constitutional Vitals: Period Temp Pulse Resp BP Sys/Gonzalez Pulse Ox Last 24 Hr 96.5 F-101.9 F 60-96 7-20 104-141/56-85 89-100 General appearance: normal weight, no acute distress, other (Increased mental status no response to verbal bowel and light tactile stimulus. Mildly constricted pupils.) - Head Head exam: Present: normal inspection, normocephalic, atraumatic - Neck Neck exam: Present: normal inspection - Respiratory Respiratory exam: Present: rhonchi. Absent: stridor, wheezes - Cardiovascular Cardiovascular exam: Present: regular rate and rhythm. Absent: diastolic murmur , rubs - GI/Abdominal GI/Abdominal exam: Present: soft. Absent: tenderness - Extremities Exam Extremities exam: Present: edema Result/EKG - Labs CBC & BMP: 01/11/17 04:29 01/11/17 04:29 Labs: Laboratory Results - last 24 hr 01/10/17 01/11/17 01/11/17 20:44 04:29 04:29 WBC 11.3 RBC 3.69 L Hgb 10.1 L Hct 32.1 L MCV 87.0 MCH 27 MCHC 31.5 L RDW 20.2 H Plt Count 228 MPV 10.0 Neut % (Auto) 73.9 Lymph % (Auto) 10.5 L [place] % (Auto) 14.1 H Eos % (Auto) 0.7 Baso % (Auto) 0.4 Neut # (Auto) 8.3 H Lymph # (Auto) 1.2 L [place] # (Auto) 1.6 H Eos # (Auto) 0.1 Baso # (Auto) 0.1 Immature Gran % 0.4 Nucleated RBC % 0.2 Immature Gran # 0.05 Nucleated RBCs # 0.02 Sodium 136 Potassium 3.5 Chloride 99 Carbon Dioxide 23 Anion Gap 17.5 H BUN 24 H Creatinine 4.70 H GFR Calculation 10 BUN/Creatinine Ratio 5.00 L Glucose 96 POC Glucose 142 H Calculated Osmolality 275.0 Calcium 9.0 01/11/17 01/11/17 01/11/17 07:24 11:50 16:52 WBC RBC Hgb Hct MCV MCH MCHC RDW Plt Count MPV Neut % (Auto) Lymph % (Auto) [place] % (Auto) Eos % (Auto) Baso % (Auto) Neut # (Auto) Lymph # (Auto) [place] # (Auto) Eos # (Auto) Baso # (Auto) Immature Gran % Nucleated RBC % Immature Gran # Nucleated RBCs # Sodium Potassium Chloride Carbon Dioxide Anion Gap BUN Creatinine GFR Calculation BUN/Creatinine Ratio Glucose POC Glucose 100 86 91 Calculated Osmolality Calcium
[2017-01-11] MEDS: INSULIN GLARGINE 100 UNIT/ML SUBCUT SCH (19:00)
[2017-01-12] MEDS: ALBUTEROL/IPRATROPIUM 3 ML NEB RESP TX SCH ×4 (00:24→20:13)
[2017-01-12] MEDS: GABAPENTIN 300 MG CAPSULE PO SCH ×2 (01:19→22:13)
[2017-01-12] MEDS: GABAPENTIN 100 MG CAPSULE PO SCH ×3 (01:19→22:13)
[2017-01-12] MEDS: MONTELUKAST 10 MG TABLET PO SCH ×2 (01:20→22:13)
[2017-01-12] MEDS: FAMOTIDINE 20 MG TABLET PO SCH ×3 (01:20→22:12)
[2017-01-12] MEDS: PHENYTOIN 100 MG/2 ML VIAL IV SCH ×3 (04:32→18:30)
[2017-01-12 05:56] LABS: Basophils # 0.1 10*3/uL (0.0-0.2); Basophils % 0.5 % (0.0-0.8); Eosinophils # 0.2 10*3/uL (0.0-0.87); Eosinophils % 1.2 % (0.00-10.9); Hematocrit 31.2 VOL% (35.7-47.0); Hemoglobin 9.8 GM/DL (12.0-16.0); Immature Granulocytes % 0.7 %; Immature Granulocytes Absolute 0.09 #; Lymphocytes # 0.8 10*3/uL (1.4-4.0); Lymphocytes % 6.1 % (21.3-54.2); Mean Corpuscular HGB Conc 31.4 GM/DL (32-36); Mean Corpuscular Hemoglobin 27 PG (27-34); Mean Corpuscular Volume 86.4 FL (87-102); Mean Platelet Volume 9.9 FL (9.6-12.0); Monocytes # 1.5 10*3/uL (0.11-0.8); Monocytes % 11.5 % (1.7-12.7); Neutrophils # 10.3 10*3/uL (1.4-7.4); Platelet Count 229 T/CUMM (130-400); Red Blood Count 3.61 MC/CUMM (3.8-5.5); Red Cell Distribution Width 19.7 % (9.3-17.3); White Blood Count 12.9 T/CUMM (4-12)
--- NOTE | 2017-01-12 06:09 | Pain Management Progress Note ---
Assessment and Plan (1) Muscle spasm Status: Acute Assessment and plan: I will add baclofen for muscle spasms 01/11 hold baclofen for now due to news seizures 01/12 no need for pain management medications at this time Current Visit: Yes (2) Thoracic back pain Status: Acute Assessment and plan: Obtain CT scan of the thoracic spine to rule out acute compression fracture Current Visit: Yes (3) Back pain, lumbosacral Status: Acute Assessment and plan: Obtain CT scan of the lumbar spine today Current Visit: Yes (4) Acute chest wall pain Status: Acute Assessment and plan: Apply Lidoderm patch to the chest and rule out compression fracture which could cause radiating pain to the chest Current Visit: Yes Pain - Subjective Interval history: Patient seen in icu, she has been having seizures overnight and is post ictal right now Exam - Constitutional Vitals: Period Temp Pulse Resp BP Sys/Gonzalez Pulse Ox Last 24 Hr 97.6 F-99.4 F 60-83 7-20 82-141/45-85 91-100 General appearance: no acute distress - Head Head exam: Present: normal inspection - Eye Eye exam: Present: EOMI Pupils: Present: JSOE - ENT ENT exam: Present: normal exam - Neck Neck exam: Present: normal inspection - Respiratory Respiratory exam: Present: clear to auscultation bilaterally - Cardiovascular Cardiovascular exam: Present: RRR - GI/Abdominal GI/Abdominal exam: Present: normal bowel sounds - Neurological Exam Neurological exam: Present: altered Results - Labs CBC & BMP: 01/12/17 05:27 01/11/17 04:29 Lab Results: I have reviewed the past 24 hour labs
[2017-01-12 06:21] LABS: Calcium 8.3 MG/DL (8.5-10.1); Magnesium 2.5 MG/DL (1.8-2.4); Osmolality,Calculated 281.8 MOS/KG (273-304); Potassium 4.2 MMOL/L (3.5-5.1)
--- NOTE | 2017-01-12 07:23 | Nephrology Progress Note ---
Nephrology - PN: Subj Interval history: Patient remains sedate. She did move her head a little bit to a moderate sternal rub. Physical exam general the patient is chronically ill-appearing, heart is regular rate and rhythm, she has no pitting edema, lungs reveal upper airway noises throughout, abdomen is soft with positive bowel sounds Assessment/plan 1. End-stage renal disease-we will plan on hemodialysis today 2. Seizure disorder-patient remains sedate post seizure yesterday morning, perhaps dialysis will help remove some of the sedating medications. 3. Diabetes mellitus is controlled 4. Anemia-patient's hematocrit is 31% 5. Bradycardia seems to have improved Exam (PN)-Nephrology - Vital Signs Vital signs: Period Temp Pulse Resp BP Sys/Gonzalez Pulse Ox Last 24 Hr 97.6 F-99.4 F 60-83 7-20 82-141/45-85 91-100 - Lab 01/12/17 05:27 01/12/17 05:27 Most recent lab results Calcium 8.3 MG/DL (8.5-10.1) L 01/12/17 05:27 Magnesium 2.5 MG/DL (1.8-2.4) H 01/12/17 05:27 Assessment and Plan (1) Bradycardia Status: Resolved Assessment and plan: Patient's rate lowering medications are being held, her heart rate is improving. Current Visit: Yes (2) Acute dyspnea Status: Acute Assessment and plan: This patient has significant pulmonary hypertension with tricuspid regurgitation and pulmonary artery pressure of around 70 by echo done a few weeks ago. I think this gives her a low threshold for developing shortness of breath and the bradycardia certainly contributed to this symptomatology Current Visit: No (3) Anemia Status: Acute Assessment and plan: Patient's hematocrit is 32% Current Visit: No (4) Atrial fibrillation Status: Chronic Current Visit: No Qualifiers: Atrial fibrillation type: paroxysmal Qualified Code(s): I48.0 - Paroxysmal atrial fibrillation (5) Chest pain Status: Acute Assessment and plan: Patient's cardiac isoenzymes are unremarkable Current Visit: No (6) End stage renal disease Status: Acute Assessment and plan: We will plan on dialyzing the patient today. Current Visit: No
--- NOTE | 2017-01-12 08:51 | XRay Report ---
Portable chest Date: 01/12/2017 Clinical history: Seizure, possible aspiration Comparison: 01/11/2017 Technique: Portable AP sitting chest Findings: Stable cardiomegaly and right IJ venous dialysis catheter. Progressive pleural-parenchymal findings in the left hemithorax with only minimal pneumatization of the left lung. Reduced parenchymal findings at the right lung base. Stable osseous structures. Impression: Considerable deterioration of the chest with only minimal pneumatization of the left lung with associated pleural effusion. This finding could be related to possible aspiration with bronchial plugging or other pathology. Reduced atelectasis/infiltration at right lung base. Follow-up chest x-ray recommended. PROCEDURE INTERPRETED AT [facility] DEPARTMENT OF RADIOLOGY Final Report Signed by: Dr. Fabienne Arevalo
[2017-01-12] MEDS: INSULIN LISPRO 100 UNIT/ML SUBCUT SCH ×4 (09:47→22:13)
--- NOTE | 2017-01-12 10:13 | Event Note ---
In hospital diagnostic and therapeutic fiberoptic bronchoscopy with bilateral lavages for cytology, Gram stain, bacterial cultures, fungal stains and cultures. This is a 61-year-old black female dialysis patient who had a seizure. She has not woken up from anesthesia. She has not been able to protect her airway well. Her cough is ineffective. She has atelectasis of the left lung on chest x-ray which is indicative of retained secretions. For these reasons she is evaluated with fiberoptic bronchoscopy. The oropharynx was full of thick tenacious white secretions which were removed. The vocal cords were normal. There was no gag reflex. There were retained secretions throughout the trachea. The arvin was sharp. There was erosive friable bronchitis in the right mainstem bronchus right upper lung and right lower lung. These areas were lavaged until clear. There was a significant amount of retained secretions. These specimens were sent for the studies noted above. The left mainstem bronchus was occluded with thick tenacious secretions. These were removed. These included the left upper lung and the right lower lung. All subsegments in both lobes were irrigated and lavaged until clear. There was erosive friable bronchitis in the left mainstem bronchus the left upper lung and the left lower lung. This had the appearance of an aspiration injury. Specimens were sent for the studies noted above. The collection apparatus showed multiple bronchial plugs. The patient tolerated procedure well. There were no complications. O2 sats improved throughout the procedure and were markedly better at the end of the procedure. Impression. 1. No gag reflex. 2. Ineffective cough 3. Retained secretions 4. Atelectasis of the entire left lung with minor right lower lung atelectasis 5. Aspiration 6. Bilateral erosive friable bronchitis 7. Obtunded. Unable to protect airway. Plan. 1. Will need to repeat fiberoptic bronchoscopy tomorrow 2. Check bronchoscopy specimens 3. Follow-up chest x-ray 4. NG tube with intermittent suction 5. If the patient deteriorates any she should be intubated and ventilated.
--- NOTE | 2017-01-12 10:14 | Pulmonology Progress Note ---
Pulmonary - PN: Subj Interval history: This is a 61-year-old black female whom I saw in pulmonary consultation on 2016. Patient had a seizure. She was postictal. Staff noted been present for certain of this patient had not aspirated. Patient required transfer to intensive care unit. My impressions were. #1: New onset seizure #2: Bradycardia. Improved #3: COPD #4: Chronic renal failure which requires dialysis 3 days a week. Note, her normal schedule is Wednesday, , and Wednesday. #5: History of atrial fib #6: Past history of tobacco abuse. Patient stopped smoking December 2015. #7: Underlying heart disease with decreased ejection fraction. Mild mitral regurgitation. Mild pulmonary artery pressure elevation. #8: Past history of gastroesophageal reflux disease. Watch for reflux with microaspiration. #9: See past history 01/12/2017. This morning's chest x-ray shows complete atelectasis of the left upper lung and left lower lung. This was evaluated with fiberoptic bronchoscopy. See report. Patient had a tremendous amount of retained secretions that partially occluded the right bronchial tree and completely occluded the left mainstem bronchus and all the distal segments. This was removed with suction and lavage. There was underlying erosive friable bronchitis bilaterally. This had the appearance of aspirated gastric acid injury. This patient has no gag reflex. She is unarousable. She cannot protect her upper airways. I have asked staff to put an NG tube with intermittent suctioning down and if this patient does not do well post bronchoscopy we should consider intubation and mechanical ventilation until she wakes up. White count is 12,900 with 86. H&H is 9.8/31.2. Electrolytes are normal. Creatinine 6.1 with a BUN of 40. Thyroid function tests are normal. Physical exam. Vital signs. See below Neurologic. Unarousable. Neck. Symmetrical. No meningismus. Lymphatics. No submandibular cervical supraclavicular or epitrochlear adenopathy Chest. Large airway congestion on the right. Pre-bronchoscopy no air movement on the left. Post bronchoscopy coarse large airway congestion was heard over the left upper lung and left lower lung. Heart. Lateral PMI Abdomen. Only a very rare bowel sound. Face. Symmetrical. No unusual swelling of the tongue or lips. The remainder the exam is noncontributory. Plan. 01/12/2007. 1. NG tube with intermittent suction 2. The patient has any increase in respiratory distress she needs to be intubated and she needs mechanical ventilation. 3. Follow-up bronchoscopy tomorrow 4. Daily chest x-rays and ABGs. 5. Daily lab. Exam (Progress Note) - Constitutional Vitals: Period Temp Pulse Resp BP Sys/Gonzalez Pulse Ox Last 24 Hr 97.6 F-99.4 F 60-79 7-19 82-134/45-78 91-100 Results - Labs CBC & BMP: 01/12/17 05:27 01/12/17 05:27
[2017-01-12] MEDS: MAGNESIUM OXIDE 400 MG TABLET PO SCH (10:37)
[2017-01-12] MEDS: ASPIRIN EC 325 MG TABLET PO SCH (10:37)
[2017-01-12] MEDS: MULTIVITAMIN (CENTRUM) TABLET PO SCH (10:37)
[2017-01-12] MEDS: CALCIUM ACETATE 667 MG CAPSULE PO SCH ×3 (10:37→17:32)
[2017-01-12] MEDS: PANTOPRAZOLE 40 MG TABLET PO SCH (10:38)
[2017-01-12] MEDS: FLUTICASONE/SALMETEROL 250-50 DISKUS 14 DOSE INH SCH (10:38)
[2017-01-12] MEDS: LIDOCAINE 5% PATCH TRANSDERM SCH (10:49)
--- NOTE | 2017-01-12 12:46 | Hospitalist Progress Note ---
Assessment and Plan (1) Aspiration pneumonia due to food (regurgitated) Status: Acute Assessment and plan: The patient is admitted to intensive care unit due to aspiration pneumonia. She is improving slowly and the patient will continue present antibiotic care. Will recheck chest x-ray and electrolytes tomorrow. Continuing anticonvulsant therapy. Current Visit: Yes Qualifiers: Laterality: right Lung location: middle lobe of lung Qualified Code(s): J69.0 - Pneumonitis due to inhalation of food and vomit (2) Acute exacerbation of congestive heart failure Status: Acute Current Visit: No Qualifiers: Congestive heart failure type: diastolic Qualified Code(s): I50.33 - Acute on chronic diastolic (congestive) heart failure (3) Paroxysmal atrial fibrillation Status: Chronic Current Visit: No (4) CKD (chronic kidney disease) stage 5, GFR less than 15 ml/min Status: Chronic Current Visit: No (5) Seizure Status: Acute Assessment and plan: Continue anticonvulsant per neurology Current Visit: Yes Hospitalist: Subjective Interval history: This is a hemodialysis patient with chronic atrial fibrillation. She has tachycardia bradycardia syndrome and at the time of admission the hospital was bradycardic. The patient had seizure and had respiratory failure. The patient was admitted to intensive care unit but did not require initial intubation. The patient has had aspiration confirmed by bronchoscopy. The patient is poorly responsive but does respond to painful stimuli. The patient was dialyzed yesterday. Exam - Constitutional Vitals: Period Temp Pulse Resp BP Sys/Gonzalez Pulse Ox Last 24 Hr 97.6 F-99.4 F 62-89 7-25 82-174/45-88 91-100 Exam: Constitutional System: Mild distress. No tremulousness. The patient responds to pain. Head: Normocephalic, atraumatic. Ears, Nose and Throat System: No evidence of Otitis or Mastoiditis. No epistaxis or discharge Eyes System: Pupils equal, round, and reactive. Extraocular muscles intact. Neck: Supple, without adenopathy, No jugular venous distention. No thyromegaly , neck mass, or prior surgery apparent. Respiratory System: Chest has upper airway congestion to auscultation. The patient does not guard airway. Cardiovascular System: Heart with irregular rate and rhythm. No murmur. GI System: Abdomen soft, nontender. Normo active bowel sounds present. Musculoskeletal System: limbs with no pedal edema. Full distal pulses. Results - Labs CBC & BMP: 01/12/17 05:27 01/12/17 05:27 Lab Results: I have reviewed the past 24 hour labs Specialty Discharge - Follow Up or Referrals Follow up with: Eric Pritchett MD [Physician] - 01/28/17 10:00 am (APPT. WITH JANUARY 28 FOR LAB @ 10:00AM & 10:50 WITH )
[2017-01-12] MEDS: LORazepam 2 MG/1 ML VIAL IV PRN (14:44)
--- NOTE | 2017-01-12 14:56 | General Surgery Consult Note ---
Assessment and Plan (1) AV fistula Status: Acute Assessment and plan: The surgical incision is well-healed. The sutures may be removed. I plan to attempt to complete this test, the patient was actively seizing requiring further medical management. Returning a later time of this can be performed by the RN. Per report, the fistula can be accessed for dialysis attempt. He should be contacted if it fails to operate properly. Current Visit: Yes History of Present Illness Chief complaint: AV fistula sutures History of present illness: Ms. Albert is a 61 year old female with end-stage renal disease status post recent AV fistula placement approximately [address] Cota outside facility currently admitted in the ICU for aspiration pneumonia and acute exacerbation of congestive heart failure. Consultation from general surgery requested for suture removal of the AV fistula site. Dr. Cesar, the original surgeon was contacted who had no objection to suture removal if the wound is well-healed. He also recommended attempting to use the fistula for dialysis and to notify him if there is any issues. This report was obtained from the RN. The patient is lethargic and unable to provide additional history at the time of my exam. Home Medications Medication Instructions Recorded Confirmed Type Atorvastatin [Lipitor] 40 mg PO BEDTIME 12/10/15 01/09/17 History Multivitamin [One Daily] 1 tablet PO QAM 12/10/15 01/09/17 History dilTIAZem HCl [Diltiazem 24Hr ER] 300 mg PO QAM 12/10/15 01/09/17 History Montelukast Tab [Singulair Tab] 10 mg PO BEDTIME 02/02/16 01/09/17 History Insulin Detemir [Levemir FlexPen] 8 unit SUBCUT 1900 02/24/16 01/09/17 History Calcium Acetate 667 mg PO TID W/MEALS 06/16/16 01/09/17 History Ipratropium/Albuterol Sulfate 3 ml PO QID PRN 06/16/16 01/09/17 History [Iprat-Albut 0.5-3(2.5) mg/3 ml] Gabapentin 300 mg PO BEDTIME 09/26/16 01/09/17 History Methocarbamol 750 mg PO BID PRN 09/26/16 01/09/17 History Fluticasone/Salmeterol 250-50 1 puff INH QAM 10/03/16 01/09/17 History [Advair 250-50] Aspirin EC Tab 162.5 mg PO QAM 11/12/16 01/09/17 History Fluticasone Propionate 1 spray BOTH NARES BID PRN 11/12/16 01/09/17 History [Fluticasone 50 mcg Nasal [place]] Magnesium Oxide 400 mg PO QAM 11/12/16 01/09/17 History Pantoprazole Sodium 40 mg PO QAM 11/12/16 01/09/17 History Furosemide 160 mg PO BID 12/24/16 01/09/17 History Gabapentin 100 mg PO QAM 12/24/16 01/09/17 History Metoprolol Tartrate 50 mg PO BID 12/24/16 01/09/17 History hydrALAZINE TAB [Apresoline Tab] 100 mg PO TID 12/24/16 01/09/17 History raNITIdine HCl [Ranitidine HCl] 150 mg PO BID 12/24/16 01/09/17 History Amiodarone Tab [Cordarone Tab] 400 mg PO BID #90 tablet 12/28/16 01/09/17 Rx Allergies Allergy/AdvReac Type Severity Reaction Status Date / Time codeine Allergy Severe Swelling Verified 04/12/16 19:35 of Lip/Tongue/Throat morphine AdvReac Intermediate Abdominal Verified 04/12/16 19:35 Pain olmesartan [From Benicar] AdvReac Unknown/Unable Verified 09/26/16 11:22 to obtain venlafaxine [From Effexor] AdvReac Abdominal Verified 09/26/16 11:22 Pain Medical,Surgical,& Family Hx - Medical History Cardio: History of: Cardiac Dysrhythmia (A-FIB), CHF, Hypertension No history of: CAD, NH, Pacemaker, PVD Psychological: History of: Anxiety Disorders, Depression Neurology: History of: Migraine No history of: Seizures, TIA HEENT: History of: Eye Problem (GLASSES/CATARCTS), HEENT Problems (SINUSITIS/ ALLERGIES) Endocrine: History of: Diabetes Mellitus (IDDM), Diabetes Mellitus (NIDDM), Dyslipidemia Respiratory: History of: Asthma, Bronchitis, COPD, Obstructive Sleep Apnea ( doesnt wear cpap), Respiratory Problems (DR. [facility]AZ[facility]) No history of: Pulmonary Embolism Renal: History of: Dialysis (Tu, , Wed), Renal Failure, Renal Problems ( [facility]) Gastrointestinal: History of: GERD No history of: Hepatitis Musculoskeletal: History of: Back/Neck Problems Hematology: History of: Anemia No history of: Blood Transfusion Reaction Other: No history of: Anesthesia Reactions, Cancer - Surgical History Cardiac Surgeries: Patient Denies: Vascular Access Devices HEENT Surgeries: Surgical HX of: Eye Surgery (FOR CATARACT LT 03/05/15) Reproductive Surgeries: Surgical HX of;: Section (X1), Hysterectomy ( WITH BSO), Tubal Ligation Orthopedic Surgeries: Surgical HX of;: Orthopedic Surgery (RIGHT KNEE SURG), Spinal Surgery ( BACK SURGERY) - Family History Family History: Reports;: Family Diabetes (MOTHER () and brother), Family Heart Disease (GRANDPARENTS/PARENTS), Family Hypertension (PARENTS), Family Stroke (sister) - Social History Smoking Status: Former smoker Frequency of Alcohol Use: None Type of Drug Use: None ROS unobtainable: due to encephalopathy Exam - Constitutional Vitals: Period Temp Pulse Resp BP Sys/Gonzalez Pulse Ox Last 24 Hr 97.6 F-99.4 F 64-89 10-25 82-174/45-88 91-100 Exam: Patient was actually actively seizing at the conclusion of my visit. The surgical incision appears to be well-healed. There is palpable thrill of the fistula site. Distally the there is brisk capillary refill in the digits are warm. Results - Labs CBC & BMP: 01/12/17 05:27 01/12/17 05:27 Specialty Discharge - Follow Up or Referrals Follow up with: Eric Pritchett MD [Physician] - 01/28/17 10:00 am (APPT. WITH JANUARY 28 FOR LAB @ 10:00AM & 10:50 WITH )
[2017-01-12] MEDS ORDERED: PROPOFOL 1,000 MG/100 ML BOTTLE IV ONE (15:14)
[2017-01-12] MEDS ORDERED: SUCCINYLCHOLINE 200 MG/10 ML VIAL ONE (15:16)
[2017-01-12] MEDS ORDERED: PHENobarbital INJ 1,000 MG in SODIUM CHLORIDE 0.9% 100 ML IV ONE (16:00)
--- NOTE | 2017-01-12 16:03 | XRay Report ---
XR chest 1V portable Indication: Intubated. Chest one view: Comparison 0810 hours. Dialysis catheter position is stable. Endotracheal tube is now present terminating 3 cm cephalad the arvin. Orogastric tube extends well into the stomach. Left lung is now aerated, previously opacified completely. There is patchy obscuration of both lung bases and in general, throughout the right lung, increased interstitial prominence noted. Impression: 1. Lines and tubes as described. 2. Markedly improved aeration of the left lung. There does appear to be some degree of underlying pulmonary edema present. 3. Bibasilar atelectasis and/or pneumonia. PROCEDURE INTERPRETED AT [facility] DEPARTMENT OF RADIOLOGY Final Report Signed by: Christiano Wagner M.D.
[2017-01-12 16:20] LABS: ABG Base Excess -4.1 MMOL/L (-2.5-2.5); ABG HCO3 20.3 MMOL/L (20-26); ABG Oxygen Saturation 99.6 % (95-100); ABG PCO2 34.7 MM HG (35-48); ABG PH 7.386 (7.35-7.45); ABG PO2 281.5 MM HG (80-95); ABG TCO2 21.4 MMOL/L (23-27); Allen Test Positive; Pt O2 Delivery Device Ventilator
[2017-01-12] MEDS: FAMOTIDINE 20 MG/2 ML VIAL IV SCH (16:38)
[2017-01-12] MEDS: cefTRIAXone 1,000 MG in SODIUM CHLORIDE 0.9% 100 ML IV SCH (16:38)
[2017-01-12] MEDS: AZITHROMYCIN INJ 500 MG in SODIUM CHLORIDE 0.9% 250 ML IV SCH (17:25)
--- NOTE | 2017-01-12 18:29 | Neurology Progress Note ---
Neurology - PN : Subjective Interval history: Patient was transferred to ICU yesterday after she was seizing constantly. She stated postictal all night however this morning she had another seizure lasted for 60 minutes. She is now being intubated. Diprivan has stopped the seizure. She is on Dilantin. MRI of the brain reveals no acute abnormalities. Exam (Progress Note) - Constitutional Vitals: Period Temp Pulse Resp BP Sys/Gonzalez Pulse Ox Last 24 Hr 97.6 F-99.2 F 66-89 10-25 82-174/45-88 91-100 Exam: GENERAL: Patient is in no acute distress. NECK: Neck is supple. There is no JVD. No carotid bruits present. No thyroid masses. CVS: First and second heart sounds are normal. There is no S3 present. Regular rate and rhythm. RESPIRATORY: Lungs are clear to auscultation without any rales or rhonchi. ABDOMEN: Soft and non-tender. Bowel sounds are present. There is no hepatosplenomegaly. EXT: There is no palpable edema. Peripheral pulses are present. Skin: No rashes Central Nervous system: General: Sedated/unresponsive Speech: None Comprehension: None Facial expressions: Normal Cranial Nerves: Pupils are sluggish but reactive. Doll's head eye movements are positive. No facial asymmetry seen. Motor: Bulk and Tone is normal. Continuous periodic jerking seen primarily in the left side. Strength cannot be assessed Sensory: Cannot be assessed Reflexes: 1+ and symmetrical Cerebellar function: Cannot be assessed Toes: Equivocal Gait: Cannot be assessed Results - Labs CBC & BMP: 01/12/17 05:27 01/12/17 05:27 Assessment and Plan (1) Status epilepticus Status: Acute Assessment and plan: Continue Dilantin. Check Dilantin level. Add Keppra 1 g followed by 500 mg IV every 8 LP under fluoroscopy in the morning Current Visit: Yes Specialty Discharge - Follow Up or Referrals Follow up with: rEic Pritchett MD [Physician] - 01/28/17 10:00 am (APPT. WITH JANUARY 28 FOR LAB @ 10:00AM & 10:50 WITH )
[2017-01-12] MEDS: INSULIN GLARGINE 100 UNIT/ML SUBCUT SCH (19:51)
[2017-01-12] MEDS: PROPOFOL 1,000 MG/100 ML BOTTLE IV SCH (21:51)
--- NOTE | 2017-01-13 00:28 | Electroencephalogram ---
HISTORY: A 61-year-old female with a history of seizures. INTRODUCTION: A digital EEG was performed using a standard 10-20 system of electrode placement with one channel of EKG monitoring. Photic stimulation was performed. DESCRIPTION OF RECORD: The background is very disorganized, consists of 5 to 6 Hz moderate amplitude bilaterally symmetrical rhythm. Photic stimulation elicits a driving response at slower flash frequ encies. Occasional generalized sharp waves are seen. Heart rate is 60 beats per minute. IMPRESSION: ABNORMAL ELECTROENCEPHALOGRAM DUE TO: 1. GENERALIZED SLOWING. 2. SUSPICIOUS GENERALIZED EPILEPTIFORM DISCHARGE. CLINICAL CORRELATION: This record is supportive of moderate to severe encephalopathy as well as part ial mechanism of epilepsy (complex partial seizures). There is no clear suggestive correlate. Clini mabel correlation suggested.
[2017-01-13] MEDS: ALBUTEROL/IPRATROPIUM 3 ML NEB RESP TX SCH ×4 (01:36→19:57)
[2017-01-13] MEDS: PHENYTOIN 100 MG/2 ML VIAL IV SCH ×3 (02:51→18:17)
[2017-01-13 03:41] LABS: Pt O2 Delivery Device Ventilator
[2017-01-13 03:48] LABS: ABG Base Excess -1.5 MMOL/L (-2.5-2.5); ABG HCO3 21.3 MMOL/L (20-26); ABG Oxygen Saturation 99.5 % (95-100); ABG PCO2 28.3 MM HG (35-48); ABG PH 7.495 (7.35-7.45); ABG PO2 214.8 MM HG (80-95); ABG TCO2 22.2 MMOL/L (23-27)
[2017-01-13 05:03] LABS: Basophils % 0.6 % (0.0-0.8); Eosinophils % 0.6 % (0.00-10.9); Hematocrit 24.8 VOL% (35.7-47.0); Hemoglobin 8.1 GM/DL (12.0-16.0); Immature Granulocytes % 0.6 %; Immature Granulocytes Absolute 0.04 #; Lymphocytes # 0.6 10*3/uL (1.4-4.0); Lymphocytes % 8.2 % (21.3-54.2); Mean Corpuscular HGB Conc 32.7 GM/DL (32-36); Mean Corpuscular Hemoglobin 28 PG (27-34); Mean Corpuscular Volume 84.4 FL (87-102); Mean Platelet Volume 10.8 FL (9.6-12.0); Monocytes # 0.8 10*3/uL (0.11-0.8); Monocytes % 11.2 % (1.7-12.7); NRBC # 0.02 10*3/uL; Neutrophils # 5.6 10*3/uL (1.4-7.4); Neutrophils % 78.8 % (38.7-73.9); Platelet Count 190 T/CUMM (130-400); Red Blood Count 2.94 MC/CUMM (3.8-5.5); Red Cell Distribution Width 18.8 % (9.3-17.3); White Blood Count 7.1 T/CUMM (4-12)
[2017-01-13 05:27] LABS: INR 1.2; PT Patient Result 13.3 SECS; Partial Thromboplastin Time 38.7 SECS (0-40)
--- NOTE | 2017-01-13 06:30 | XRay Report ---
Portable chest Date: 01/13/2017 Clinical history: Aspiration, seizure Comparison: 01/12/2017 Technique: Portable AP sitting chest Findings: Stable cardiomegaly and supportive devices. Artifactual densities limit the exam. Reduced parenchymal findings in the lower lung zones with stable mediastinum and osseous structures. Impression: Artifactual densities limit evaluation of the upper lung zones. Reduced atelectasis/infiltration/edema at the lung bases with stable supportive devices. PROCEDURE INTERPRETED AT [facility] DEPARTMENT OF RADIOLOGY Final Report Signed by: Dr. Fabienne Arevalo
[2017-01-13] MEDS: NOREPINEPHRINE 8 MG in SODIUM CHLORIDE 0.9% 242 ML IV SCH (07:00)
[2017-01-13] MEDS: INSULIN LISPRO 100 UNIT/ML SUBCUT SCH ×3 (07:49→18:20)
[2017-01-13] MEDS ORDERED: POTASSIUM CHLORIDE RIDER 10 MEQ in PREMIX 1 EACH IV PRN (08:40)
--- NOTE | 2017-01-13 08:43 | Nephrology Progress Note ---
Nephrology - PN: Subj Interval history: Patient is intubated and sedate. Physical exam general the patient's unresponsive, heart is regular rate and rhythm, she has no pitting edema, lungs are clear to auscultation anteriorly, abdomen is soft with decreased bowel sounds Assessment/plan 1. End-stage renal disease-we will continue hemodialysis support 2. Seizure disorder-continue antiepileptic meds 3. Diabetes mellitus 4. Anemia 5. Respiratory failure continue ventilator support Exam (PN)-Nephrology - Vital Signs Vital signs: Period Temp Pulse Resp BP Sys/Gonzalez Pulse Ox Last 24 Hr 98.0 F-99.4 F 70-110 12 82-174/46-89 84-100 - Lab 01/13/17 04:38 01/12/17 05:27 Most recent lab results ABG pH 7.495 (7.35-7.45) H 01/13/17 03:20 ABG pCO2 28.3 MM HG (35-48) L 01/13/17 03:20 ABG pO2 214.8 MM HG (80-95) H 01/13/17 03:20 ABG HCO3 21.3 MMOL/L (20-26) 01/13/17 03:20 ABG O2 Saturation 99.5 % (95-100) 01/13/17 03:20 Calcium 8.3 MG/DL (8.5-10.1) L 01/12/17 05:27 Magnesium 2.5 MG/DL (1.8-2.4) H 01/12/17 05:27 Assessment and Plan (1) Bradycardia Status: Resolved Assessment and plan: Patient's rate lowering medications are being held, her heart rate is improving. Current Visit: Yes (2) Acute dyspnea Status: Acute Assessment and plan: This patient has significant pulmonary hypertension with tricuspid regurgitation and pulmonary artery pressure of around 70 by echo done a few weeks ago. I think this gives her a low threshold for developing shortness of breath and the bradycardia certainly contributed to this symptomatology Current Visit: No (3) Anemia Status: Acute Assessment and plan: Patient's hematocrit is 32% Current Visit: No (4) Atrial fibrillation Status: Chronic Current Visit: No Qualifiers: Atrial fibrillation type: paroxysmal Qualified Code(s): I48.0 - Paroxysmal atrial fibrillation (5) Chest pain Status: Acute Assessment and plan: Patient's cardiac isoenzymes are unremarkable Current Visit: No (6) End stage renal disease Status: Acute Assessment and plan: We will plan on dialyzing the patient today. Current Visit: No Specialty Discharge - Follow Up or Referrals Follow up with: Eric Pritchett MD [Physician] - 01/28/17 10:00 am (APPT. WITH JANUARY 28 FOR LAB @ 10:00AM & 10:50 WITH )
--- NOTE | 2017-01-13 09:24 | Hospitalist Progress Note ---
Assessment and Plan (1) Aspiration pneumonia due to food (regurgitated) Status: Acute Current Visit: Yes Qualifiers: Laterality: right Lung location: middle lobe of lung Qualified Code(s): J69.0 - Pneumonitis due to inhalation of food and vomit (2) Acute exacerbation of congestive heart failure Status: Acute Current Visit: No Qualifiers: Congestive heart failure type: diastolic Qualified Code(s): I50.33 - Acute on chronic diastolic (congestive) heart failure (3) Altered mental status Status: Acute Current Visit: No (4) Anemia Status: Acute Current Visit: No (5) End stage renal disease on dialysis Status: Acute Assessment and plan: Patient is status post bronchoscopy. Apparently his patient aspirated during a seizure. She is on Dilantin, Ativan as needed and levertira. Patient is not really waking up at this point. Unsure the long-term prognosis at this time. She is on dialysis. Will repeat labs in the morning Current Visit: No Hospitalist: Subjective Interval history: Patient is on the ventilator currently. Patient was examined status post receiving bronchoscopy Exam - Constitutional Vitals: Period Temp Pulse Resp BP Sys/Gonzalez Pulse Ox Last 24 Hr 98.0 F-99.4 F 70-110 12-25 82-174/46-89 84-100 General appearance: normal weight - Head Head exam: Present: normal inspection - ENT ENT exam: Present: other (ET tube in place) - Neck Neck exam: Present: normal inspection - Respiratory Respiratory exam: Present: clear to auscultation bilaterally (Currently status post bronch) - Cardiovascular Cardiovascular exam: Present: regular rate and rhythm - GI/Abdominal GI/Abdominal exam: Present: normal bowel sounds - Extremities Exam Extremities exam: Present: normal inspection - Neurological Exam Neurological exam: Present: other - Skin Skin exam: Present: normal color Results - Labs CBC & BMP: 01/13/17 04:38 01/12/17 05:27 Specialty Discharge - Follow Up or Referrals Follow up with: Eric Pritchett MD [Physician] - 01/28/17 10:00 am (APPT. WITH JANUARY 28 FOR LAB @ 10:00AM & 10:50 WITH )
--- NOTE | 2017-01-13 10:08 | Event Note ---
In hospital therapeutic and diagnostic bronchoscopy. Bilateral lavages were sent for cytology, Gram stain, bacterial cultures, fungal stains and cultures. This is a 61-year-old black female with status epilepticus. She is now on mechanical ventilation. She cannot protect her airways. She has documented aspiration and retention of secretions. Chest x-ray still shows areas of atelectasis. Her cough is ineffective. For these reasons she is evaluated with fiberoptic bronchoscopy. The endotracheal tube is in good position. The distal trachea was normal. The arvin was sharp. Left mainstem bronchus contained a lot of thick tenacious secretions that were removed. These extended into the left upper lung and the left lower lung were secretions were also removed with bronchoalveolar lavage. These specimens were sent for the studies noted above. Previously noted erosive friable bronchitis is improved significantly in 1 day. The right mainstem bronchus was full of thick tenacious secretions. These spared the right upper lung. These involve the right middle lung and right lower lung. These areas were lavaged and suctioned until clear and specimens were sent for the studies named above. There was some residual erosive friable bronchitis in the right lower lung. This is improved since a study done 1 day ago. Airways bilaterally showed some mild collapsibility. There were no endobronchial lesions that had the appearance of cancer. Patient tolerated procedure well and there were no complications. Impression. 1. Status epilepticus with inability to protect airways 2. Intubation mechanical ventilation. 3. Retention of pulmonary secretions and previously retention of gastric aspirate 4. Ineffective cough 5. Bilateral pulmonary atelectasis Plan. 1. Check bronchoscopy specimens 2. Follow-up chest X
--- NOTE | 2017-01-13 10:12 | Pulmonology Progress Note ---
Pulmonary - PN: Subj Interval history: This is a 61-year-old black female whom I saw in pulmonary consultation on 2016. Patient had a seizure. She was postictal. Staff noted been present for certain of this patient had not aspirated. Patient required transfer to intensive care unit. My impressions were. #1: New onset seizure #2: Bradycardia. Improved #3: COPD #4: Chronic renal failure which requires dialysis 3 days a week. Note, her normal schedule is Wednesday, , and Wednesday. #5: History of atrial fib #6: Past history of tobacco abuse. Patient stopped smoking December 2015. #7: Underlying heart disease with decreased ejection fraction. Mild mitral regurgitation. Mild pulmonary artery pressure elevation. #8: Past history of gastroesophageal reflux disease. Watch for reflux with microaspiration. #9: See past history 01/12/2017. This morning's chest x-ray shows complete atelectasis of the left upper lung and left lower lung. This was evaluated with fiberoptic bronchoscopy. See report. Patient had a tremendous amount of retained secretions that partially occluded the right bronchial tree and completely occluded the left mainstem bronchus and all the distal segments. This was removed with suction and lavage. There was underlying erosive friable bronchitis bilaterally. This had the appearance of aspirated gastric acid injury. This patient has no gag reflex. She is unarousable. She cannot protect her upper airways. I have asked staff to put an NG tube with intermittent suctioning down and if this patient does not do well post bronchoscopy we should consider intubation and mechanical ventilation until she wakes up. White count is 12,900 with 86. H&H is 9.8/31.2. Electrolytes are normal. Creatinine 6.1 with a BUN of 40. Thyroid function tests are normal. 01/13/2017 peer today's chest x-ray shows cardiomegaly. There is mild atelectasis at the right and left bases and there is a residual infiltrate in the right upper lung. Fiberoptic bronchoscopy was done 01/13/2017. Endobronchially the patient is much improved with still some residual areas of erosive friable bronchitis. There is slight collapsibility of the large and small airways. There was significant retention of pulmonary secretions. These were removed and sent for studies. ABGs on mechanical ventilation and FiO2 of 60% shows a pH of 7.495, PCO2 28.3, PO2 of 214.8 and a bicarb of 12.3. Patient' s on a weaning protocol. H&H is dropped 8.1/24.8. White count is 7100. Platelets are 190,000. Dilantin level is 11.5. There are no positive culture. Gram stain from bronchoscopy showed gram-positive cocci and many white blood cells. Physical exam. Vital signs. See below Neurologic. Unarousable. Neck. Symmetrical. No meningismus. Lymphatics. No submandibular cervical supraclavicular or epitrochlear adenopathy Chest. Large airway congestion on the right. Pre-bronchoscopy no air movement on the left. Post bronchoscopy coarse large airway congestion was heard over the left upper lung and left lower lung. Heart. Lateral PMI Abdomen. Only a very rare bowel sound. Face. Symmetrical. No unusual swelling of the tongue or lips. The remainder the exam is noncontributory. Plan. 01/12/2007. 1. NG tube with intermittent suction 2. The patient has any increase in respiratory distress she needs to be intubated and she needs mechanical ventilation. 3. Follow-up bronchoscopy tomorrow 4. Daily chest x-rays and ABGs. 5. Daily lab. 01/13/2017. 1. See my note. 2. Patient was intubated 01/12/2017 3. Fiberoptic bronchoscopies were done 01/12/2017 and 01/13/2017. 4. Weaning protocol 5. Physical therapy protocol. Exam (Progress Note) - Constitutional Vitals: Period Temp Pulse Resp BP Sys/Gnozalez Pulse Ox Last 24 Hr 98.0 F-99.4 F 70-113 12-20 82-173/46-111 84-100 Results - Labs CBC & BMP: 01/13/17 04:38 01/12/17 05:27 Specialty Discharge - Follow Up or Referrals Follow up with: Eric Pritchett MD [Physician] - 01/28/17 10:00 am (APPT. WITH JANUARY 28 FOR LAB @ 10:00AM & 10:50 WITH )
[2017-01-13] MEDS: CALCIUM ACETATE 667 MG CAPSULE PO SCH ×3 (10:26→17:25)
[2017-01-13] MEDS: MULTIVITAMIN (CENTRUM) TABLET PO SCH (10:27)
[2017-01-13] MEDS: MAGNESIUM OXIDE 400 MG TABLET PO SCH (10:27)
[2017-01-13] MEDS: ASPIRIN EC 325 MG TABLET PO SCH (10:27)
[2017-01-13] MEDS: FLUTICASONE/SALMETEROL 250-50 DISKUS 14 DOSE INH SCH (10:27)
[2017-01-13] MEDS: GABAPENTIN 100 MG CAPSULE PO SCH ×2 (10:28→21:44)
[2017-01-13] MEDS: PANTOPRAZOLE 40 MG TABLET PO SCH (10:28)
[2017-01-13] MEDS: FAMOTIDINE 20 MG TABLET PO SCH ×2 (10:31→21:52)
[2017-01-13] MEDS: LIDOCAINE 5% PATCH TRANSDERM SCH (10:50)
[2017-01-13] MEDS: CLINDAMYCIN INJ 300 MG in PREMIX 1 EACH IV SCH ×2 (10:50→18:20)
--- NOTE | 2017-01-13 11:15 | Pathology Report from [facility] ---
[facility] ACCESSION # : [id number] PATIENT NAME : Tiff Albert ORDERING DR : MARKUS KHAN MD CLINICAL HX: Aspiration, Pneumonia POST-OP DX: Same SPECIMEN INFO: Washing,Bronchial,DC - 15 mls bloody, cloudy CLASS: II CLASS COMMENTS: Acute, chronic inflammation, macrophages, atypical cell groups.CELL BLOCK: Same, suggest biopsy if symptoms persist. CLASS LEGEND: CLASS 0 Material inadequate for diagnosis because of (see comment) CLASS I Absence of atypical or abnormal cells CLASS II Atypical Cytology but no evidence of malignancy CLASS III Cytology suggestive of but not conclusive for malignancy CLASS IV Cytology strongly suggestive of malignancy CLASS V Cytology conclusive for malignancy COLLECTED DATE: 01/12/2017 [facility] REPORT DATE: 01/13/2017 ELECTRONICALLY SIGNED BY: Aimee Silverman III, M.D. 01/13/2017 - 9:28:26 [facility]
--- NOTE | 2017-01-13 12:05 | Event Note ---
Patient is intubated. Return to remove sutures as documented a yesterday. AV fistula site was accessed and used for dialysis yesterday afternoon without complication. Surgical incision is clean, dry and intact with a running nylon suture in place. The palpable thrill. Distally and digits are warm with brisk capillary refill. This was removed without complication. No dressings required. Continue AV fistula use as long as there are no complications. Notify Dr. Cesar with any questions or concerns.
--- NOTE | 2017-01-13 14:35 | Post Interventional Procedure ---
Pre-op diagnosis: Seizures Post-op diagnosis: same Procedure: LP w/ fluoro Flouroscopy: 0.6 min Radiologist: Christiano Wagner Anesthesia: local Specimens: other (8 cc clear colorless CSF - first tube blood tinged) Estimated blood loss: none Complications: none Description/Findings: op 26 cm-water
--- NOTE | 2017-01-13 15:13 | Interventional Radiology Rpt ---
IR lumbar puncture diagnostic Indication: Status epilepticus. Lumbar puncture with fluoroscopy Description: Formal timeout was performed. Maximum sterile barrier technique used. The patient was placed left lateral decubitus on the fluoroscopy table. The low back was prepped and draped in a sterile fashion. A midline lumbar puncture was then performed at the L2-3 interspace using a 22-gauge spinal needle. Fluoroscopic guidance was used and a captured image documents the needle position. An opening pressure of 26 cm water was obtained. 8 cc CSF was obtained. The first small amount of CSF was blood-tinged but rapidly cleared. Needle was removed and a bandage placed the puncture site. Fluoroscopy time: 0.6 minutes. Impression: Lumbar puncture as described. Elevated opening pressure. Bloody tap. PROCEDURE INTERPRETED AT [facility] DEPARTMENT OF RADIOLOGY Final Report Signed by: Christiano Wagner M.D.
[2017-01-13] MEDS: cefTRIAXone 1,000 MG in SODIUM CHLORIDE 0.9% 100 ML IV SCH (16:47)
[2017-01-13] MEDS: FAMOTIDINE 20 MG/2 ML VIAL IV SCH (16:47)
[2017-01-13] MEDS: PROPOFOL 1,000 MG/100 ML BOTTLE IV SCH (16:54)
[2017-01-13] MEDS: AZITHROMYCIN INJ 500 MG in SODIUM CHLORIDE 0.9% 250 ML IV SCH (16:55)
[2017-01-13 17:34] LABS: Appearance,CSF Clear; Red Blood Cell,CSF 34 C/CUMM; White Blood Cell,CSF 6 C/CUMM
[2017-01-13] MEDS: INSULIN GLARGINE 100 UNIT/ML SUBCUT SCH (18:20)
--- NOTE | 2017-01-13 19:17 | Neurology Progress Note ---
Neurology - PN : Subjective Interval history: Pt seems to be doing about the same. Still on Vent and unresponsive. No more szs reported. CSF so far is unremarkable. Dilantin level in 11.5 Exam (Progress Note) - Constitutional Vitals: Period Temp Pulse Resp BP Sys/Gonzalez Pulse Ox Last 24 Hr 97.4 F-98.2 F 70-113 1-17 77-174/41-111 97-100 Exam: GENERAL: Patient is in no acute distress. NECK: Neck is supple. There is no JVD. No carotid bruits present. No thyroid masses. CVS: First and second heart sounds are normal. There is no S3 present. Regular rate and rhythm. RESPIRATORY: Lungs are clear to auscultation without any rales or rhonchi. ABDOMEN: Soft and non-tender. Bowel sounds are present. There is no hepatosplenomegaly. EXT: There is no palpable edema. Peripheral pulses are present. Skin: No rashes Central Nervous system: General: Sedated/unresponsive Speech: None Comprehension: None Facial expressions: Normal Cranial Nerves: Pupils are sluggish but reactive. Doll's head eye movements are positive. No facial asymmetry seen. Motor: Bulk and Tone is normal. Continuous periodic jerking seen primarily in the left side. Strength cannot be assessed Sensory: Cannot be assessed Reflexes: 1+ and symmetrical Cerebellar function: Cannot be assessed Toes: Equivocal Gait: Cannot be assessed Results - Labs CBC & BMP: 01/13/17 04:38 01/12/17 05:27 Assessment and Plan (1) Status epilepticus Status: Acute Assessment and plan: Continue Dilantin and Keppra Cont. current supportive management Current Visit: Yes Specialty Discharge - Follow Up or Referrals Follow up with: Eric Pritchett MD [Physician] - 01/28/17 10:00 am (APPT. WITH JANUARY 28 FOR LAB @ 10:00AM & 10:50 WITH )
[2017-01-13 19:56] LABS: Lymphocytes,CSF 40 %; Monocytes,CSF 10 %; Neutrophils,CSF 50 %
[2017-01-13] MEDS: MONTELUKAST 10 MG TABLET PO SCH (21:44)
[2017-01-13] MEDS: GABAPENTIN 300 MG CAPSULE PO SCH (21:44)
[2017-01-14] MEDS: ALBUTEROL/IPRATROPIUM 3 ML NEB RESP TX SCH ×4 (00:17→19:16)
[2017-01-14] MEDS: INSULIN LISPRO 100 UNIT/ML SUBCUT SCH ×4 (01:41→18:14)
[2017-01-14] MEDS: PHENYTOIN 100 MG/2 ML VIAL IV SCH ×3 (01:44→18:13)
[2017-01-14 03:33] LABS: ABG HCO3 21.9 MMOL/L (20-26); ABG Oxygen Saturation 99.6 % (95-100); ABG PCO2 35.6 MM HG (35-48); ABG PH 7.386 (7.35-7.45); ABG TCO2 18.8 MMOL/L (23-27); Allen Test Positive; Pt O2 Delivery Device Ventilator
[2017-01-14] MEDS: CLINDAMYCIN INJ 300 MG in PREMIX 1 EACH IV SCH ×3 (03:37→18:14)
[2017-01-14 04:45] LABS: Basophils # 0.1 10*3/uL (0.0-0.2); Basophils % 0.7 % (0.0-0.8); Eosinophils # 0.5 10*3/uL (0.0-0.87); Eosinophils % 5.7 % (0.00-10.9); Hematocrit 25.9 VOL% (35.7-47.0); Hemoglobin 8.2 GM/DL (12.0-16.0); Immature Granulocytes % 0.9 %; Immature Granulocytes Absolute 0.07 #; Lymphocytes # 0.8 10*3/uL (1.4-4.0); Lymphocytes % 10.1 % (21.3-54.2); Mean Corpuscular HGB Conc 31.7 GM/DL (32-36); Mean Corpuscular Hemoglobin 27 PG (27-34); Mean Corpuscular Volume 84.1 FL (87-102); Monocytes # 0.9 10*3/uL (0.11-0.8); Monocytes % 11.5 % (1.7-12.7); NRBC # 0.03 10*3/uL; Neutrophils # 5.8 10*3/uL (1.4-7.4); Neutrophils % 71.1 % (38.7-73.9); Platelet Count 214 T/CUMM (130-400); Red Blood Count 3.08 MC/CUMM (3.8-5.5); Red Cell Distribution Width 19.5 % (9.3-17.3); White Blood Count 8.1 T/CUMM (4-12)
[2017-01-14 05:12] LABS: Calcium 8.2 MG/DL (8.5-10.1); Magnesium 2.4 MG/DL (1.8-2.4); Osmolality,Calculated 287.7 MOS/KG (273-304); Potassium 3.5 MMOL/L (3.5-5.1)
[2017-01-14] MEDS: NOREPINEPHRINE 8 MG in SODIUM CHLORIDE 0.9% 242 ML IV SCH (05:52)
--- NOTE | 2017-01-14 07:04 | XRay Report ---
Portable chest Date: 01/14/2017 Clinical history: Intubated patient Comparison: 01/13/2017 Technique: Portable AP sitting chest Findings: Stable cardiomegaly and supportive devices. Minimally progressive parenchymal findings at the right lung base. Otherwise the lungs appear fairly stable in appearance. The mediastinum and osseous structures are unchanged. Impression: Minimally progressive atelectasis/infiltration/edema at the right lung base. Otherwise the chest appears fairly stable in appearance. PROCEDURE INTERPRETED AT [facility] DEPARTMENT OF RADIOLOGY Final Report Signed by: Dr. Fabienne Arevalo
--- NOTE | 2017-01-14 08:21 | Event Note ---
I saw the patient earlier this morning., she is currently intubated and not responsive to verbal stimuli. She does not seem to be in any obvious distress. I will sign off for now and be available for consultation as needed .
--- NOTE | 2017-01-14 08:54 | Nephrology Progress Note ---
Nephrology - PN: Subj Interval history: Patient remains intubated and sedate. Her to prevent is currently off I am not sure how long it has been off. Physical exam general the patient is chronically ill-appearing, heart is regular rate and rhythm, she has no pitting edema, lungs are clear to auscultation anteriorly, abdomen is soft with positive bowel sounds Assessment/plan 1. End-stage renal disease-we will plan on hemodialysis today 2. Bradycardia this is resolved 3. Seizure disorder-continue antiepileptics 4. Diabetes mellitus is controlled 5. Anemia-patient's hematocrit around 26% 6. Decreased mentation-I spoke to the family about her seizures and that perhaps her hypo-tension as well as her long history of diabetes and hypertension had taken its toll on her brain and that she probably has a decreased functional reserve with her brain and this may slow her recovery from her present ailment and that is possible she may not recover to the level where she was prior to her illness. They seem to understand this. Exam (PN)-Nephrology - Vital Signs Vital signs: Period Temp Pulse Resp BP Sys/Ognzalez Pulse Ox Last 24 Hr 97.4 F-98.7 F 70-978 08-18 77-174/3-111 96-100 - Lab 01/14/17 03:57 01/14/17 03:57 Most recent lab results ABG pH 7.386 (7.35-7.45) 01/14/17 03:15 ABG pCO2 35.6 MM HG (35-48) 01/14/17 03:15 ABG pO2 150.0 MM HG (80-95) H 01/14/17 03:15 ABG HCO3 21.9 MMOL/L (20-26) 01/14/17 03:15 ABG O2 Saturation 99.6 % (95-100) 01/14/17 03:15 Calcium 8.2 MG/DL (8.5-10.1) L 01/14/17 03:57 Phosphorus 3.0 MG/DL (2.5-4.9) 01/14/17 03:57 Magnesium 2.4 MG/DL (1.8-2.4) 01/14/17 03:57 Assessment and Plan (1) Bradycardia Status: Resolved Assessment and plan: Patient's rate lowering medications are being held, her heart rate is improving. Current Visit: Yes (2) Acute dyspnea Status: Acute Assessment and plan: This patient has significant pulmonary hypertension with tricuspid regurgitation and pulmonary artery pressure of around 70 by echo done a few weeks ago. I think this gives her a low threshold for developing shortness of breath and the bradycardia certainly contributed to this symptomatology Current Visit: No (3) Anemia Status: Acute Assessment and plan: Patient's hematocrit is 32% Current Visit: No (4) Atrial fibrillation Status: Chronic Current Visit: No Qualifiers: Atrial fibrillation type: paroxysmal Qualified Code(s): I48.0 - Paroxysmal atrial fibrillation (5) Chest pain Status: Acute Assessment and plan: Patient's cardiac isoenzymes are unremarkable Current Visit: No (6) End stage renal disease Status: Acute Assessment and plan: We will plan on dialyzing the patient today. Current Visit: No Specialty Discharge - Follow Up or Referrals Follow up with: Eric Pritchett MD [Physician] - 01/28/17 10:00 am (APPT. WITH JANUARY 28 FOR LAB @ 10:00AM & 10:50 WITH )
[2017-01-14] MEDS: CALCIUM ACETATE 667 MG CAPSULE PO SCH ×3 (09:22→18:13)
[2017-01-14] MEDS: FLUTICASONE/SALMETEROL 250-50 DISKUS 14 DOSE INH SCH (09:22)
[2017-01-14] MEDS: MULTIVITAMIN (CENTRUM) TABLET PO SCH (09:22)
[2017-01-14] MEDS: LIDOCAINE 5% PATCH TRANSDERM SCH (09:23)
[2017-01-14] MEDS: ASPIRIN CHEW 81 MG TABLET PO SCH (09:33)
[2017-01-14] MEDS: GABAPENTIN 50 MG/ML 30 ML/BOTTLE NG SCH ×2 (09:33→20:45)
--- NOTE | 2017-01-14 10:33 | Pulmonology Progress Note ---
Pulmonary - PN: Subj Interval history: This is a 61-year-old black female whom I saw in pulmonary consultation on 2016. Patient had a seizure. She was postictal. Staff noted been present for certain of this patient had not aspirated. Patient required transfer to intensive care unit. My impressions were. #1: New onset seizure #2: Bradycardia. Improved #3: COPD #4: Chronic renal failure which requires dialysis 3 days a week. Note, her normal schedule is Wednesday, , and Wednesday. #5: History of atrial fib #6: Past history of tobacco abuse. Patient stopped smoking December 2015. #7: Underlying heart disease with decreased ejection fraction. Mild mitral regurgitation. Mild pulmonary artery pressure elevation. #8: Past history of gastroesophageal reflux disease. Watch for reflux with microaspiration. #9: See past history 01/12/2017. This morning's chest x-ray shows complete atelectasis of the left upper lung and left lower lung. This was evaluated with fiberoptic bronchoscopy. See report. Patient had a tremendous amount of retained secretions that partially occluded the right bronchial tree and completely occluded the left mainstem bronchus and all the distal segments. This was removed with suction and lavage. There was underlying erosive friable bronchitis bilaterally. This had the appearance of aspirated gastric acid injury. This patient has no gag reflex. She is unarousable. She cannot protect her upper airways. I have asked staff to put an NG tube with intermittent suctioning down and if this patient does not do well post bronchoscopy we should consider intubation and mechanical ventilation until she wakes up. White count is 12,900 with 86. H&H is 9.8/31.2. Electrolytes are normal. Creatinine 6.1 with a BUN of 40. Thyroid function tests are normal. 01/13/2017 peer today's chest x-ray shows cardiomegaly. There is mild atelectasis at the right and left bases and there is a residual infiltrate in the right upper lung. Fiberoptic bronchoscopy was done 01/13/2017. Endobronchially the patient is much improved with still some residual areas of erosive friable bronchitis. There is slight collapsibility of the large and small airways. There was significant retention of pulmonary secretions. These were removed and sent for studies. ABGs on mechanical ventilation and FiO2 of 60% shows a pH of 7.495, PCO2 28.3, PO2 of 214.8 and a bicarb of 12.3. Patient' s on a weaning protocol. H&H is dropped 8.1/24.8. White count is 7100. Platelets are 190,000. Dilantin level is 11.5. There are no positive culture. Gram stain from bronchoscopy showed gram-positive cocci and many white blood cells. 01/14/2017. Today's chest x-ray shows cardiomegaly. Central venous fullness. Increased interstitial markings in both upper and lower lungs. Endotracheal tube is in good position. ABGs on FiO2 of 60% shows a pH 7.39, PCO2 36, PO2 of 150 and a bicarb of 22. Electrolytes are normal. Creatinine is 5.2 with a BUN of 31. White count 8100 with 71 segs. Patient has had lumbar puncture. Glucose is a 76 and total protein are 19 white blood cells are 6. All antigens are negative. This does not appear to be infected. Bronchoalveolar lavage from 01/12/2017 grew E. coli and yeast. Patient still not arousable. Physical exam. Vital signs. See below Neurologic. Unarousable. Neck. Symmetrical. No meningismus. Lymphatics. No submandibular cervical supraclavicular or epitrochlear adenopathy Chest. Large airway congestion on the right. Pre-bronchoscopy no air movement on the left. Post bronchoscopy coarse large airway congestion was heard over the left upper lung and left lower lung. Heart. Lateral PMI Abdomen. Only a very rare bowel sound. Face. Symmetrical. No unusual swelling of the tongue or lips. The remainder the exam is noncontributory. Plan. 01/12/2007. 1. NG tube with intermittent suction 2. The patient has any increase in respiratory distress she needs to be intubated and she needs mechanical ventilation. 3. Follow-up bronchoscopy tomorrow 4. Daily chest x-rays and ABGs. 5. Daily lab. 01/13/2017. 1. See my note. 2. Patient was intubated 01/12/2017 3. Fiberoptic bronchoscopies were done 01/12/2017 and 01/13/2017. 4. Weaning protocol 5. Physical therapy protocol. 01/14/2017 1. See today's note above. 2. Mechanical ventilation with weaning protocol and physical therapy protocol. From a neurological standpoint patient cannot be totally weaned 3. Daily chest x-ray, ABGs and lab. Exam (Progress Note) - Constitutional Vitals: Period Temp Pulse Resp BP Sys/Gonzalez Pulse Ox Last 24 Hr 97.4 F-98.7 F 70-978 1-22 77-174/3-104 96-100 Results - Labs CBC & BMP: 01/14/17 03:57 01/14/17 03:57 Specialty Discharge - Follow Up or Referrals Follow up with: Eric Pritchett MD [Physician] - 01/28/17 10:00 am (APPT. WITH JANUARY 28 FOR LAB @ 10:00AM & 10:50 WITH )
[2017-01-14] MEDS: ASPIRIN EC 325 MG TABLET PO SCH (10:49)
[2017-01-14] MEDS: MAGNESIUM OXIDE 400 MG TABLET PO SCH (10:50)
--- NOTE | 2017-01-14 11:17 | Pathology Report from [facility] ---
[facility] [place] ACCESSION # : [id number] PATIENT NAME : Tiff Albert ORDERING DR : MARKUS KHAN MD CLINICAL HX: Pneumonia, Aspiration POST-OP DX: Same SPECIMEN INFO: Washing,Brocnhial,DC - 15 mls bloody, cloudy CLASS: II CLASS COMMENTS: Scant benign respiratory epithelium with marked acute inflammation.CELL BLOCK: Same. CLASS LEGEND: CLASS 0 Material inadequate for diagnosis because of (see comment) CLASS I Absence of atypical or abnormal cells CLASS II Atypical Cytology but no evidence of malignancy CLASS III Cytology suggestive of but not conclusive for malignancy CLASS IV Cytology strongly suggestive of malignancy CLASS V Cytology conclusive for malignancy COLLECTED DATE: 01/13/2017 [facility] REPORT DATE: 01/14/2017 ELECTRONICALLY SIGNED BY: Teo Gonzalez M.D. 01/14/2017 - 9:50:33 [facility]
[2017-01-14] MEDS: cefTAZidime 500 MG in SODIUM CHLORIDE 0.9% 100 ML IV SCH ×2 (12:43→22:54)
--- NOTE | 2017-01-14 13:21 | Dialysis Note ---
Dialysis Note - Dialysis Note Ms. Albert is seen during her hemodialysis. She is unresponsive but tolerating dialysis well with a stable blood pressure.
--- NOTE | 2017-01-14 15:34 | Neurology Progress Note ---
Neurology - PN : Subjective Interval history: She will open her eyes today and kept them open upon stimulation. Not following commands. No more seizures reported. CSF is negative for any acute infection. Getting dialyzed Exam (Progress Note) - Constitutional Vitals: Period Temp Pulse Resp BP Sys/Gonzalez Pulse Ox Last 24 Hr 97.0 F-98.7 F 83-978 12-22 86-160/3-107 94-100 Exam: GENERAL: Patient is in no acute distress. NECK: Neck is supple. There is no JVD. No carotid bruits present. No thyroid masses. CVS: First and second heart sounds are normal. There is no S3 present. Regular rate and rhythm. RESPIRATORY: Lungs are clear to auscultation without any rales or rhonchi. ABDOMEN: Soft and non-tender. Bowel sounds are present. There is no hepatosplenomegaly. EXT: There is no palpable edema. Peripheral pulses are present. Skin: No rashes Central Nervous system: General: Opening her eyes upon stimulation Speech: None/is still on vent Comprehension: None Facial expressions: Normal Cranial Nerves: Pupils are sluggish but reactive. Doll's head eye movements are positive. No facial asymmetry seen. Motor: Bulk and Tone is normal. Continuous periodic jerking seen primarily in the left side. Strength cannot be assessed Sensory: Cannot be assessed Reflexes: 1+ and symmetrical Cerebellar function: Cannot be assessed Toes: Equivocal Gait: Cannot be assessed Results - Labs CBC & BMP: 01/14/17 03:57 01/14/17 03:57 Assessment and Plan (1) Status epilepticus Status: Acute Assessment and plan: Continue Dilantin and Keppra Cont. current supportive management No new recommendations at this time from neuro standpoint Current Visit: Yes Specialty Discharge - Follow Up or Referrals Follow up with: Eric Pritchett MD [Physician] - 01/28/17 10:00 am (APPT. WITH JANUARY 28 FOR LAB @ 10:00AM & 10:50 WITH )
[2017-01-14] MEDS ORDERED: LORazepam 2 MG/1 ML VIAL IV ONE (15:46)
[2017-01-14] MEDS: FAMOTIDINE 20 MG/2 ML VIAL IV SCH (15:53)
--- NOTE | 2017-01-14 17:31 | Hospitalist Progress Note ---
Assessment and Plan - Time spent with patient Time spent with patient: Greater than 30 minutes (40 minutes. Talk with family today to update patient's status.) (1) COPD (chronic obstructive pulmonary disease) Status: Chronic Assessment and plan: Patient remains ventilated. Current Visit: No Qualifiers: (2) Acute exacerbation of congestive heart failure Status: Acute Current Visit: No Qualifiers: Congestive heart failure type: diastolic Qualified Code(s): I50.33 - Acute on chronic diastolic (congestive) heart failure (3) End stage renal disease Status: Chronic Assessment and plan: Continue with schedule hemodialysis for this patient. Current Visit: No (4) Hypertension Status: Chronic Current Visit: No Qualifiers: Hypertension type: essential hypertension Qualified Code(s): I10 - Essential (primary) hypertension (5) ESRD on dialysis Status: Chronic Current Visit: No (6) Status epilepticus Status: Resolved Assessment and plan: Neurology has been evaluating. No further seizures. Current Visit: Yes (7) Seizure Status: Acute Assessment and plan: No further seizures at this time. Evaluated by neurology. Current Visit: Yes Hospitalist: Subjective Interval history: The patient is in the process of getting dialysis. She has been able to open her eyes no seizures today. Had a long discussion with patient's family earlier this morning to update him regarding patient's overall status. The family voiced understanding. No fevers or chills. Exam - Constitutional Vitals: Period Temp Pulse Resp BP Sys/Gonzalez Pulse Ox Last 24 Hr 97.0 F-98.7 F 83-978 12-22 86-160/3-107 94-100 General appearance: no acute distress, other (Ventilated.) - Head Head exam: Present: normal inspection - Eye Eye exam: Present: EOMI - Respiratory Respiratory exam: Present: clear to auscultation bilaterally - Cardiovascular Cardiovascular exam: Present: regular rate and rhythm - GI/Abdominal GI/Abdominal exam: Present: normal bowel sounds Results - Labs CBC & BMP: 01/14/17 03:57 01/14/17 03:57 Specialty Discharge - Follow Up or Referrals Follow up with: Eric Pritchett MD [Physician] - 01/28/17 10:00 am (APPT. WITH JANUARY 28 FOR LAB @ 10:00AM & 10:50 WITH )
[2017-01-14] MEDS: PROPOFOL 1,000 MG/100 ML BOTTLE IV SCH ×2 (18:13→23:45)
[2017-01-14] MEDS: INSULIN GLARGINE 100 UNIT/ML SUBCUT SCH (18:20)
[2017-01-14] MEDS: AZITHROMYCIN INJ 500 MG in SODIUM CHLORIDE 0.9% 250 ML IV SCH (18:24)
[2017-01-14] MEDS: MONTELUKAST 10 MG TABLET PO SCH (20:47)
[2017-01-14] MEDS ORDERED: GABAPENTIN 50 MG/ML 30 ML/BOTTLE NG SCH (21:00)
[2017-01-15] MEDS: ALBUTEROL/IPRATROPIUM 3 ML NEB RESP TX SCH ×4 (01:02→20:08)
[2017-01-15] MEDS: INSULIN LISPRO 100 UNIT/ML SUBCUT SCH ×4 (01:35→18:12)
[2017-01-15] MEDS: PHENYTOIN 100 MG/2 ML VIAL IV SCH ×3 (02:54→17:32)
[2017-01-15] MEDS: CLINDAMYCIN INJ 300 MG in PREMIX 1 EACH IV SCH ×3 (02:59→19:35)
[2017-01-15 03:23] LABS: Allen Test Positive; Pt O2 Delivery Device Ventilator
[2017-01-15 03:24] LABS: ABG Base Excess 1.2 MMOL/L (-2.5-2.5); ABG HCO3 24.4 MMOL/L (20-26); ABG Oxygen Saturation 99.3 % (95-100); ABG PCO2 32.9 MM HG (35-48); ABG PH 7.488 (7.35-7.45); ABG PO2 205.4 MM HG (80-95); ABG TCO2 25.4 MMOL/L (23-27)
[2017-01-15] MEDS: NOREPINEPHRINE 8 MG in SODIUM CHLORIDE 0.9% 242 ML IV SCH (05:30)
[2017-01-15 06:34] LABS: Basophils # 0.1 10*3/uL (0.0-0.2); Basophils % 0.7 % (0.0-0.8); Eosinophils # 0.6 10*3/uL (0.0-0.87); Eosinophils % 6.9 % (0.00-10.9); Hematocrit 26.9 VOL% (35.7-47.0); Hemoglobin 8.5 GM/DL (12.0-16.0); Immature Granulocytes % 1.5 %; Immature Granulocytes Absolute 0.12 #; Lymphocytes % 12.5 % (21.3-54.2); Mean Corpuscular HGB Conc 31.6 GM/DL (32-36); Mean Corpuscular Hemoglobin 27 PG (27-34); Mean Corpuscular Volume 84.1 FL (87-102); Mean Platelet Volume 10.7 FL (9.6-12.0); Monocytes # 0.9 10*3/uL (0.11-0.8); Monocytes % 11.2 % (1.7-12.7); NRBC # 0.02 10*3/uL; Neutrophils # 5.4 10*3/uL (1.4-7.4); Neutrophils % 67.2 % (38.7-73.9); Platelet Count 220 T/CUMM (130-400); Red Cell Distribution Width 19.1 % (9.3-17.3)
[2017-01-15 07:02] LABS: Calcium 8.5 MG/DL (8.5-10.1); Potassium 3.7 MMOL/L (3.5-5.1)
--- NOTE | 2017-01-15 07:07 | XRay Report ---
Portable chest Date: 01/15/2017 Clinical history: Ventilator patient Comparison: 01/14/2017 Technique: Portable AP sitting chest Findings: Stable cardiomegaly and supportive devices. Reduction in the diffuse parenchymal findings in the lungs with small pleural effusions. The mediastinum and osseous structures are stable in appearance. Impression: Minimally improved atelectasis/edema/infiltration with small pleural effusions. The supportive devices remain in satisfactory position. PROCEDURE INTERPRETED AT [facility] DEPARTMENT OF RADIOLOGY Final Report Signed by: Dr. Fabienne Arevalo
[2017-01-15] MEDS: CALCIUM ACETATE 667 MG CAPSULE PO SCH ×3 (07:49→17:23)
[2017-01-15] MEDS: FLUTICASONE/SALMETEROL 250-50 DISKUS 14 DOSE INH SCH (09:43)
[2017-01-15] MEDS: LIDOCAINE 5% PATCH TRANSDERM SCH (09:54)
[2017-01-15] MEDS: ASPIRIN CHEW 81 MG TABLET PO SCH (09:56)
[2017-01-15] MEDS: MULTIVITAMIN (CENTRUM) TABLET PO SCH (09:56)
--- NOTE | 2017-01-15 10:02 | Nephrology Progress Note ---
Nephrology - PN: Subj Interval history: Patient remains intubated and sedate. Physical exam general the patient is chronically ill-appearing, heart is regular rate and rhythm, she has no pitting edema, lungs are clear to auscultation anteriorly, abdomen is soft with positive bowel sounds, neuro- patient remains unresponsive for me. Assessment/plan 1. Bradycardia-this seems to resolve 2. End-stage renal disease-we will continue hemodialysis support 3. Altered mental status-patient had a prolonged seizure a few days ago, she has been very poorly responsive since then. 4. Respiratory failure-patient continues on the ventilator. 5. Aspiration pneumonia-continue IV antibiotics. Exam (PN)-Nephrology - Vital Signs Vital signs: Period Temp Pulse Resp BP Sys/Gonzalez Pulse Ox Last 24 Hr 98.3 F-98.4 F 89-127 12-21 98-160/38-107 94-100 - Lab 01/15/17 06:10 01/15/17 06:10 Most recent lab results ABG pH 7.488 (7.35-7.45) H 01/15/17 03:10 ABG pCO2 32.9 MM HG (35-48) L 01/15/17 03:10 ABG pO2 205.4 MM HG (80-95) H 01/15/17 03:10 ABG HCO3 24.4 MMOL/L (20-26) 01/15/17 03:10 ABG O2 Saturation 99.3 % (95-100) 01/15/17 03:10 Calcium 8.5 MG/DL (8.5-10.1) 01/15/17 06:10 Phosphorus 3.0 MG/DL (2.5-4.9) 01/14/17 03:57 Magnesium 2.4 MG/DL (1.8-2.4) 01/14/17 03:57 Assessment and Plan (1) Bradycardia Status: Resolved Assessment and plan: Patient's rate lowering medications are being held, her heart rate is improving. Current Visit: Yes (2) Acute dyspnea Status: Acute Assessment and plan: This patient has significant pulmonary hypertension with tricuspid regurgitation and pulmonary artery pressure of around 70 by echo done a few weeks ago. I think this gives her a low threshold for developing shortness of breath and the bradycardia certainly contributed to this symptomatology Current Visit: No (3) Anemia Status: Acute Assessment and plan: Patient's hematocrit is 32% Current Visit: No (4) Atrial fibrillation Status: Chronic Current Visit: No Qualifiers: Atrial fibrillation type: paroxysmal Qualified Code(s): I48.0 - Paroxysmal atrial fibrillation (5) Chest pain Status: Acute Assessment and plan: Patient's cardiac isoenzymes are unremarkable Current Visit: No (6) End stage renal disease Status: Acute Assessment and plan: We will plan on dialyzing the patient today. Current Visit: No Specialty Discharge - Follow Up or Referrals Follow up with: Eric Pritchett MD [Physician] - 01/28/17 10:00 am (APPT. WITH JANUARY 28 FOR LAB @ 10:00AM & 10:50 WITH )
[2017-01-15] MEDS: GABAPENTIN 50 MG/ML 30 ML/BOTTLE NG SCH (10:16)
--- NOTE | 2017-01-15 10:28 | Pulmonology Progress Note ---
Pulmonary - PN: Subj Interval history: This is a 61-year-old black female whom I saw in pulmonary consultation on 2016. Patient had a seizure. She was postictal. Staff noted been present for certain of this patient had not aspirated. Patient required transfer to intensive care unit. My impressions were. #1: New onset seizure #2: Bradycardia. Improved #3: COPD #4: Chronic renal failure which requires dialysis 3 days a week. Note, her normal schedule is Wednesday, , and Wednesday. #5: History of atrial fib #6: Past history of tobacco abuse. Patient stopped smoking December 2015. #7: Underlying heart disease with decreased ejection fraction. Mild mitral regurgitation. Mild pulmonary artery pressure elevation. #8: Past history of gastroesophageal reflux disease. Watch for reflux with microaspiration. #9: See past history 01/12/2017. This morning's chest x-ray shows complete atelectasis of the left upper lung and left lower lung. This was evaluated with fiberoptic bronchoscopy. See report. Patient had a tremendous amount of retained secretions that partially occluded the right bronchial tree and completely occluded the left mainstem bronchus and all the distal segments. This was removed with suction and lavage. There was underlying erosive friable bronchitis bilaterally. This had the appearance of aspirated gastric acid injury. This patient has no gag reflex. She is unarousable. She cannot protect her upper airways. I have asked staff to put an NG tube with intermittent suctioning down and if this patient does not do well post bronchoscopy we should consider intubation and mechanical ventilation until she wakes up. White count is 12,900 with 86. H&H is 9.8/31.2. Electrolytes are normal. Creatinine 6.1 with a BUN of 40. Thyroid function tests are normal. 01/13/2017 peer today's chest x-ray shows cardiomegaly. There is mild atelectasis at the right and left bases and there is a residual infiltrate in the right upper lung. Fiberoptic bronchoscopy was done 01/13/2017. Endobronchially the patient is much improved with still some residual areas of erosive friable bronchitis. There is slight collapsibility of the large and small airways. There was significant retention of pulmonary secretions. These were removed and sent for studies. ABGs on mechanical ventilation and FiO2 of 60% shows a pH of 7.495, PCO2 28.3, PO2 of 214.8 and a bicarb of 12.3. Patient' s on a weaning protocol. H&H is dropped 8.1/24.8. White count is 7100. Platelets are 190,000. Dilantin level is 11.5. There are no positive culture. Gram stain from bronchoscopy showed gram-positive cocci and many white blood cells. 01/14/2017. Today's chest x-ray shows cardiomegaly. Central venous fullness. Increased interstitial markings in both upper and lower lungs. Endotracheal tube is in good position. ABGs on FiO2 of 60% shows a pH 7.39, PCO2 36, PO2 of 150 and a bicarb of 22. Electrolytes are normal. Creatinine is 5.2 with a BUN of 31. White count 8100 with 71 segs. Patient has had lumbar puncture. Glucose is a 76 and total protein are 19 white blood cells are 6. All antigens are negative. This does not appear to be infected. Bronchoalveolar lavage from 01/12/2017 grew E. coli and yeast. Patient still not arousable. 01/15/2017. This is a 61-year-old black female long-term dialysis patient who has underlying heart disease with a decreased ejection fraction and with mitral regurgitation. She was admitted with new onset seizures. She had aspiration with retention of gastric contents and the retention of a tremendous amount of pulmonary secretions. She has been nonresponsive. She required intubation mechanical ventilation. Neurology has evaluated her. I am told that the patient would occasionally open her eyes but she is nonresponsive on my exam. She is on a weaning protocol mechanical ventilation and does fairly well with CPAP but will be unable to protect her airways and tissue begins to wake up. Today's chest x-ray shows cardiomegaly right perihilar infiltrate and slight elevation of the right hemidiaphragm with preservation of normal contour. This appears to be an anterior eventration. Endotracheal tube is in good position. ABGs on mechanical ventilation with an FiO2 of 60% show a pH of 7.49, PCO2 33, PO2 of 205 and a bicarb of 24.4 electrolytes normal. Creatinine is 2.80 down from 5.20 yesterday. White count is 8000 with 67 segs. H&H is 8.5/26.9 and platelets of 220,000 patient has had a lumbar puncture and this shows no evidence of infection Dilantin level is 11.5. She is also on Keppra. She is on Neurontin and I have discussed this with neurology and we have agreed to stop this medicine. Bronchoscopy specimens have grown E. coli and yeast and specimens submitted on 01/13/2017 are growing a gram-positive cocci which has not been identified. This patient is on the weaning protocol and physical therapy protocol. Physical exam. Vital signs. See below Neurologic. Unarousable. Neck. Symmetrical. No meningismus. Lymphatics. No submandibular cervical supraclavicular or epitrochlear adenopathy Chest. Large airway congestion on the right. Pre-bronchoscopy no air movement on the left. Post bronchoscopy coarse large airway congestion was heard over the left upper lung and left lower lung. Heart. Lateral PMI Abdomen. Only a very rare bowel sound. Face. Symmetrical. No unusual swelling of the tongue or lips. The remainder the exam is noncontributory. Plan. 01/12/2007. 1. NG tube with intermittent suction 2. The patient has any increase in respiratory distress she needs to be intubated and she needs mechanical ventilation. 3. Follow-up bronchoscopy tomorrow 4. Daily chest x-rays and ABGs. 5. Daily lab. 01/13/2017. 1. See my note. 2. Patient was intubated 01/12/2017 3. Fiberoptic bronchoscopies were done 01/12/2017 and 01/13/2017. 4. Weaning protocol 5. Physical therapy protocol. 01/14/2017 1. See today's note above. 2. Mechanical ventilation with weaning protocol and physical therapy protocol. From a neurological standpoint patient cannot be totally weaned 3. Daily chest x-ray, ABGs and lab. 01/15/2017. 1. See today's note above. 2. Check recent sputum cultures which were obtained with fiberoptic bronchoscopy 3. Continue mechanical ventilation weaning protocol and physical therapy protocol. Patient remains nonresponsive and is not ready for extubation. She cannot protect her airways. Exam (Progress Note) - Constitutional Vitals: Period Temp Pulse Resp BP Sys/Gonzalez Pulse Ox Last 24 Hr 98.3 F-98.4 F 89-127 12-21 98-160/38-107 96-100 Results - Labs CBC & BMP: 01/15/17 06:10 01/15/17 06:10 Specialty Discharge - Follow Up or Referrals Follow up with: Eric Pritchett MD [Physician] - 01/28/17 10:00 am (APPT. WITH JANUARY 28 FOR LAB @ 10:00AM & 10:50 WITH )
--- NOTE | 2017-01-15 11:15 | Pathology Report from [facility] ---
[facility] [place] ACCESSION # : [id number] PATIENT NAME : Tiff Albert ORDERING DR : TIM LLAMAS MD CLINICAL HX: Seizures POST-OP DX: Same SPECIMEN INFO: Fluid,CSF - 1 ml clear CLASS: I CLASS COMMENTS: No atypical cells or increased cellularity. CLASS LEGEND: CLASS 0 Material inadequate for diagnosis because of (see comment) CLASS I Absence of atypical or abnormal cells CLASS II Atypical Cytology but no evidence of malignancy CLASS III Cytology suggestive of but not conclusive for malignancy CLASS IV Cytology strongly suggestive of malignancy CLASS V Cytology conclusive for malignancy COLLECTED DATE: 01/14/2017 [facility] REPORT DATE: 01/15/2017 ELECTRONICALLY SIGNED BY: Teo Gonzalez M.D. 01/15/2017 - 9:14:44 MTDD
--- NOTE | 2017-01-15 11:27 | Post Interventional Procedure ---
Pre-op diagnosis: esrd no iv access Post-op diagnosis: same Procedure: central vein cather with us guide Radiologist: Guillermo Diaz Specimens: none sent Estimated blood loss: none Complications: none Condition: critical Description/Findings: Exam: IR cvc insert nt >5, US guide vascular access Date: 01/15/2017 Indication: IV access, end-stage renal disease ventilator Comparison: None VIR Guillermo Diaz D.O. Asst Seb Mendoza, RT Findings: Risk and benefits were explained and informed consent was obtained from the family. Maximal sterile barrier was utilized with the counter control operator and assistance wearing, caps, gown ,gloves ,facemask and hand washing was utilized. The patient arm was cleansed with ChloraPrep. 1% local lidocaine was administered. Ultrasound guidance was utilized with image stored and captured. . Central venous access catheter was placed with puncture with real-time ultrasound guidance into the left internal jugular vein. 035 wire was passed in the sheath was advanced subsequently a 7 Nepalese dilator was passed and 7 Nepalese 20 cm triple lumen catheter was placed. The catheter was secured to the skin with a silk suture. The distal tip is in the proximal superior vena cava. Catheter was flushed with saline and a Tegaderm dressing was applied. Estimated blood loss none Complications none Condition stable Specimen none Impression: 1. Satisfactory ultrasound-guided the central venous access catheter placement of a left IJ approach at the patient's bedside. Image stored and captured
--- NOTE | 2017-01-15 11:30 | Interventional Radiology Rpt ---
Exam: IR cvc insert nt >5, US guide vascular access Date: 01/15/2017 Indication: IV access, end-stage renal disease ventilator Comparison: None PAOLA Martinezt Seb Mendoza, RT Findings: Risk and benefits were explained and informed consent was obtained from the family. Maximal sterile barrier was utilized with the inserting operator and assistance wearing, caps, gown ,gloves ,facemask and hand washing was utilized. The patient arm was cleansed with ChloraPrep. 1% local lidocaine was administered. Ultrasound guidance was utilized with image stored and captured. . Central venous access catheter was placed with puncture with real-time ultrasound guidance into the left internal jugular vein. 035 wire was passed in the sheath was advanced subsequently a 7 Irish dilator was passed and 7 Irish 20 cm triple lumen catheter was placed. The catheter was secured to the skin with a silk suture. The distal tip is in the proximal superior vena cava. Catheter was flushed with saline and a Tegaderm dressing was applied. Estimated blood loss none Complications none Condition stable Specimen none Impression: 1. Satisfactory ultrasound-guided the central venous access catheter placement of a left IJ approach at the patient's bedside. Image stored and captured PROCEDURE INTERPRETED AT [facility] DEPARTMENT OF RADIOLOGY Final Report Signed by: Dr. Guillermo Diaz
--- NOTE | 2017-01-15 11:32 | XRay Report ---
Exam: XR chest post procedure Date: 01/15/2017 at 10:52 AM Indication: Central venous access catheter placement Comparison: 01/15/2017 3:28 AM Technical: AP portable Findings: Left IJ catheter has been placed the distal tip is in the superior vena cava right atrial junction. A right-sided dialysis catheter is in place. Cardiomegaly is present. Endotracheal tube is below the mid clavicle nasogastric tube in the stomach. Patchy interstitial alveolar densities present lung zuleta bilaterally. No pneumothorax. Impression: 1. Stable appearance of the life support tubing 2. Interval placement of left IJ catheter without pneumothorax 3. Cardiomegaly with mild alveolar interstitial densities and tiny effusions bilaterally without pneumothorax PROCEDURE INTERPRETED AT [facility] DEPARTMENT OF RADIOLOGY Final Report Signed by: Dr. Guillermo Diaz
[2017-01-15] MEDS ORDERED: SUCCINYLCHOLINE 200 MG/10 ML VIAL ONE (11:49)
[2017-01-15] MEDS: PROPOFOL 1,000 MG/100 ML BOTTLE IV SCH ×2 (12:10→16:11)
--- NOTE | 2017-01-15 12:10 | Anesthesia Procedures ---
Anesthesia Procedures - Intubation Time out performed intubation: Yes Sedative: none Laryngoscope: Jesse (3) ET Tube Size: 7.5 ET Tube Uncuffed: No Tube Secured Depth (cm): 21 Tube Secured Location: lips Tube Placement Confirmation: visualized tube passing through cords, equal breath sounds bilaterally, no breath sounds over epigastrium, confirmation by capnometry, confirmation detector color change Patient tolerated procedure intubation: well Intubation Complications: none (code in process when i arrived. intubated at 1203)
--- NOTE | 2017-01-15 12:26 | EKG Report ---
Stationary ECG Study [facility] Test Date: 01/15/2017 12:17:10 PM Pat Name: COMPA AMAYA Department: Room: 111 Gender: F Shaper Operator: : [id number] Requested by: Yusuf Stuart Order Number: [id number] Reading MD: EROS BAERD Intervals [place] Rate: 134 P: 999 IN: 0 QRS: 61 QRSD: 116 T: 261 QT: 311 QTc: 390 Interpretive Statements ATRIAL FIBRILLATION WITH RAPID VENTRICULAR RESPONSE NON-SPECIFIC IVCD WITH SECONDARY ST-T CHANGES POSSIBLE ISCHEMIA Electronically Signed On 01-17-17 08:14:45 CDT by EROS BEARD [email or web address]
--- NOTE | 2017-01-15 12:48 | Hospitalist Progress Note ---
Assessment and Plan (1) COPD (chronic obstructive pulmonary disease) Status: Chronic Assessment and plan: Patient remains ventilated. Patient was reintubated this morning after her ET tube was dislodged. Chest x-ray is acceptable. Pending ABG. Family has been notified. Current Visit: No Qualifiers: (2) Acute exacerbation of congestive heart failure Status: Acute Current Visit: No Qualifiers: Congestive heart failure type: diastolic Qualified Code(s): I50.33 - Acute on chronic diastolic (congestive) heart failure (3) End stage renal disease Status: Chronic Assessment and plan: Continue with schedule hemodialysis for this patient. Current Visit: No (4) Hypertension Status: Chronic Current Visit: No Qualifiers: Hypertension type: essential hypertension Qualified Code(s): I10 - Essential (primary) hypertension (5) ESRD on dialysis Status: Chronic Current Visit: No (6) Status epilepticus Status: Resolved Assessment and plan: Neurology has been evaluating. No further seizures. Current Visit: Yes (7) Seizure Status: Acute Assessment and plan: No further seizures at this time. Evaluated by neurology. Current Visit: Yes Hospitalist: Subjective Interval history: Patient had a central line placed earlier this morning. Was been turned in the bed when her ET tube was dislodged. Hospitalist service was called for reintubation became a difficult procedure and patient's heart rate started to decline. At that time code was called anesthesia was able to calm and reintubate patient without difficulty. Follow-up chest x-ray showed good tube placement. Patient is hemodynamically stable. Pending ABG at this time. The patient's daughter Wendy was notified at [phone] and given an update regarding Ms. Persaud. She voiced understanding. Exam - Constitutional Vitals: Period Temp Pulse Resp BP Sys/Gonzalez Pulse Ox Last 24 Hr 98.3 F-98.4 F 89-127 12-20 98-160/38-107 99-100 General appearance: no acute distress, other (Now intubated ,no acute distress) - Head Head exam: Present: normal inspection - Neck Neck exam: Present: normal inspection - Respiratory Respiratory exam: Present: clear to auscultation bilaterally - Cardiovascular Cardiovascular exam: Present: tachycardia - GI/Abdominal GI/Abdominal exam: Present: normal bowel sounds - Extremities Exam Extremities exam: Present: normal inspection Results - Labs CBC & BMP: 01/15/17 06:10 06/16/17 06:10 Specialty Discharge - Follow Up or Referrals Follow up with: Eric Pritchett MD [Physician] - 01/28/17 10:00 am (APPT. WITH JANUARY 28 FOR LAB @ 10:00AM & 10:50 WITH )
--- NOTE | 2017-01-15 13:26 | XRay Report ---
Portable chest Date: 01/15/2017 Clinical history: Endotracheal tube and nasogastric tube placement Comparison: 01/15/2017 Technique: Portable AP sitting chest Findings: Stable cardiomegaly. Endotracheal tube, nasogastric tube, right IJ venous dialysis catheter is stable in position. Left IJ CVP line with tip in right atrium. No pneumothorax. Progressive diffuse parenchymal findings in the lungs with small pleural effusions. Impression: Supportive devices are in satisfactory position. Minimally progressive pulmonary edema/pneumonitis with small pleural effusions. PROCEDURE INTERPRETED AT [facility] DEPARTMENT OF RADIOLOGY Final Report Signed by: Dr. Fabienne Arevalo
[2017-01-15] MEDS: cefTAZidime 500 MG in SODIUM CHLORIDE 0.9% 100 ML IV SCH ×2 (13:43→23:25)
[2017-01-15 14:45] LABS: ABG HCO3 24.4 MMOL/L (20-26); ABG PCO2 33.6 MM HG (35-48); ABG PH 7.454 (7.35-7.45)
[2017-01-15 14:46] LABS: Allen Test Positive; Pt O2 Delivery Device Ventilator
[2017-01-15] MEDS: FAMOTIDINE 20 MG/2 ML VIAL IV SCH (15:23)
--- NOTE | 2017-01-15 16:33 | Event Note ---
Epifanio Walker Note: Hospitalist service called for assistance with reintubation for this patient. Was informed by nursing staff that the patient pulled her ET tube out. Reintubation was attempted and subsequently became a difficult procedure. With patient becoming hypoxic, she developed bradycardia and then asystole. A code blue was called. She was noted then, to be in PEA. She recieved 1 of epi and an amp of Bicarb. Anesthesia was present for the intubation. A pulse with a satisfactory rhythm was regained and the patient was stabilized. Follow-up chest x-ray with satisfactory tube placement. She remains in the ICU in guarded/ critical condition.
[2017-01-15] MEDS: AZITHROMYCIN INJ 500 MG in SODIUM CHLORIDE 0.9% 250 ML IV SCH (17:23)
[2017-01-15] MEDS: INSULIN GLARGINE 100 UNIT/ML SUBCUT SCH (20:54)
[2017-01-15] MEDS: MONTELUKAST 10 MG TABLET PO SCH (21:32)
[2017-01-16] MEDS: INSULIN LISPRO 100 UNIT/ML SUBCUT SCH ×4 (00:50→19:04)
[2017-01-16] MEDS: ALBUTEROL/IPRATROPIUM 3 ML NEB RESP TX SCH ×4 (01:31→19:56)
[2017-01-16] MEDS: PHENYTOIN 100 MG/2 ML VIAL IV SCH ×3 (01:51→18:20)
[2017-01-16] MEDS: CLINDAMYCIN INJ 300 MG in PREMIX 1 EACH IV SCH ×3 (03:26→18:24)
[2017-01-16 03:56] LABS: ABG Base Excess 0.6 MMOL/L (-2.5-2.5); ABG PCO2 34.2 MM HG (35-48); ABG PH 7.458 (7.35-7.45); ABG TCO2 22.6 MMOL/L (23-27); Allen Test Positive; Pt O2 Delivery Device Ventilator
[2017-01-16 05:30] LABS: Basophils # 0.1 10*3/uL (0.0-0.2); Basophils % 0.9 % (0.0-0.8); Eosinophils # 0.4 10*3/uL (0.0-0.87); Eosinophils % 3.5 % (0.00-10.9); Hematocrit 24.8 VOL% (35.7-47.0); Hemoglobin 7.7 GM/DL (12.0-16.0); Immature Granulocytes % 3.6 %; Immature Granulocytes Absolute 0.36 #; Lymphocytes % 9.4 % (21.3-54.2); Mean Corpuscular Hemoglobin 27 PG (27-34); Mean Corpuscular Volume 86.1 FL (87-102); Mean Platelet Volume 10.6 FL (9.6-12.0); Monocytes # 1.1 10*3/uL (0.11-0.8); Monocytes % 11.2 % (1.7-12.7); NRBC # 0.04 10*3/uL; Neutrophils # 7.2 10*3/uL (1.4-7.4); Neutrophils % 71.4 % (38.7-73.9); Platelet Count 228 T/CUMM (130-400); Red Blood Count 2.88 MC/CUMM (3.8-5.5); Red Cell Distribution Width 19.5 % (9.3-17.3); White Blood Count 10.1 T/CUMM (4-12)
[2017-01-16 06:08] LABS: Calcium 8.1 MG/DL (8.5-10.1); Magnesium 2.5 MG/DL (1.8-2.4); Osmolality,Calculated 284.7 MOS/KG (273-304); Potassium 3.5 MMOL/L (3.5-5.1)
[2017-01-16] MEDS: NOREPINEPHRINE 8 MG in SODIUM CHLORIDE 0.9% 242 ML IV SCH (06:12)
--- NOTE | 2017-01-16 07:06 | XRay Report ---
XR chest 1V portable Indication: Intubated. Chest one view: Since yesterday, less planing central line has been placed tip in the high right atrium. Dialysis catheter, endotracheal tube, NG tube, cardiomegaly and hazy obscuration of the left greater than right lung bases remain stable. Right hemidiaphragm is elevated. Impression: Central line now present. Otherwise no change. PROCEDURE INTERPRETED AT [facility] DEPARTMENT OF RADIOLOGY Final Report Signed by: Christiano Wagner M.D.
--- NOTE | 2017-01-16 07:42 | Nephrology Progress Note ---
Nephrology - PN: Subj Interval history: Events of yesterday noted. Patient had to be reintubated after her ET tube was dislodged. She has been hemodynamically stable to the night. Plan for hemodialysis today. Hematocrit noted to be trending down to 24.7. There has been no further seizure activity. Exam (PN)-Nephrology - Vital Signs Vital signs: Period Temp Pulse Resp BP Sys/Gonzalez Pulse Ox Last 24 Hr 97.0 F-99.1 F 60-135 12-51 78-174/28-96 99-100 - General Appearance General appearance: well-developed, intubated EENT: ATNC Neck: supple Cardiology: no edema, regular rate, regular rhythm Gastrointestinal: normoactive bowel sounds - Lab 01/16/17 05:15 01/16/17 05:15 Most recent lab results ABG pH 7.458 (7.35-7.45) H 01/16/17 03:34 ABG pCO2 34.2 MM HG (35-48) L 01/16/17 03:34 ABG pO2 253.0 MM HG (80-95) H 01/16/17 03:34 ABG HCO3 25.0 MMOL/L (20-26) 01/16/17 03:34 ABG O2 Saturation 100.0 % (95-100) 01/16/17 03:34 Calcium 8.1 MG/DL (8.5-10.1) L 01/16/17 05:15 Phosphorus 3.0 MG/DL (2.5-4.9) 01/14/17 03:57 Magnesium 2.5 MG/DL (1.8-2.4) H 01/16/17 05:15 Assessment and Plan (1) COPD (chronic obstructive pulmonary disease) Status: Chronic Assessment and plan: Patient remains ventilated. Current Visit: No Qualifiers: (2) Acute exacerbation of congestive heart failure Status: Acute Current Visit: No Qualifiers: Congestive heart failure type: diastolic Qualified Code(s): I50.33 - Acute on chronic diastolic (congestive) heart failure (3) End stage renal disease Status: Chronic Assessment and plan: Continue with schedule hemodialysis for this patient. Hemodialysis today. Current Visit: No (4) Hypertension Status: Chronic Current Visit: No Qualifiers: Hypertension type: essential hypertension Qualified Code(s): I10 - Essential (primary) hypertension (5) ESRD on dialysis Status: Chronic Current Visit: No (6) Status epilepticus Status: Resolved Assessment and plan: Neurology has been evaluating. No further seizures. Current Visit: Yes (7) Seizure Status: Acute Assessment and plan: No further seizures at this time. Evaluated by neurology. Current Visit: Yes (8) Anemia Status: Chronic Current Visit: No Qualifiers: Chronic kidney disease stage: on chronic dialysis Specialty Discharge - Follow Up or Referrals Follow up with: Eric Pritchett MD [Physician] - 01/28/17 10:00 am (APPT. WITH JANUARY 28 FOR LAB @ 10:00AM & 10:50 WITH )
[2017-01-16] MEDS ORDERED: EPOETIN ALFA 10,000 UNIT/1 ML VIAL IV PRN (07:44)
--- NOTE | 2017-01-16 08:08 | Dialysis Note ---
Dialysis Note - Dialysis Note Patient seen on dialysis she is tolerating the procedure. Noted hematocrit is trending down. Will transfuse 2 units packed red blood cells on dialysis today.
--- NOTE | 2017-01-16 09:08 | Pulmonology Progress Note ---
Pulmonary - PN: Subj Interval history: 61-year-old female admitted for status epilepticus with resultant aspiration requiring mechanical ventilation. Yesterday patient's ET tube became dislodged and had to be replaced. Patient did well overnight without further issues. Patient is now undergoing hemodialysis and ongoing CPAP weaning trials. Exam (Progress Note) - Constitutional Vitals: Period Temp Pulse Resp BP Sys/Gonzalez Pulse Ox Last 24 Hr 97.0 F-99.1 F 60-135 12-51 78-174/28-96 99-100 General appearance: normal weight - Head Head exam: Present: normal inspection - Neck Neck exam: Present: normal inspection - Respiratory Respiratory exam: Present: clear to auscultation bilaterally - Cardiovascular Cardiovascular exam: Present: regular rate and rhythm - GI/Abdominal GI/Abdominal exam: Present: normal bowel sounds - Extremities Exam Extremities exam: Present: normal inspection - Neurological Exam Neurological exam: Present: altered - Skin Skin exam: Present: normal color, warm, dry Results - Labs CBC & BMP: 01/16/17 05:15 01/16/17 05:15 - Diagnostic Findings Procedure: Chest x-ray: image reviewed by me, report reviewed by me (Overall unchanged from yesterday) Assessment and Plan (1) Aspiration pneumonia due to food (regurgitated) Status: Acute Assessment and plan: Improving. BAL growing E. coli sensitive to ceftazidime. Will discontinue azithromycin and continue Clinda/ceftaz for coverage of E. coli and anaerobic organisms. Current Visit: Yes Qualifiers: Laterality: right Lung location: middle lobe of lung Qualified Code(s): J69.0 - Pneumonitis due to inhalation of food and vomit (2) Respiratory failure Status: Acute Assessment and plan: Due to status epilepticus induced altered mental status and aspiration event. Will continue to wean ventilator settings and continue weaning protocols. Extubation will be dependent on mental status. Current Visit: Yes (3) Status epilepticus Status: Resolved Assessment and plan: Mental status remains depressed. Continue to monitor off sedation. Current Visit: Yes (4) End stage renal disease on dialysis Status: Acute Assessment and plan: Hemodialysis today; nephrology following. Current Visit: No Specialty Discharge - Follow Up or Referrals Follow up with: Eric Pritchett MD [Physician] - 01/28/17 10:00 am (APPT. WITH JANUARY 28 FOR LAB @ 10:00AM & 10:50 WITH )
--- NOTE | 2017-01-16 09:56 | Hospitalist Progress Note ---
Assessment and Plan (1) Anemia Status: Chronic Current Visit: No Qualifiers: Anemia type: due to chronic kidney disease Chronic kidney disease stage: on chronic dialysis Qualified Code(s): N18.6 - End stage renal disease; D63.1 - Anemia in chronic kidney disease; Z99.2 - Dependence on renal dialysis (2) End stage renal disease on dialysis Status: Chronic Assessment and plan: Dialysis ongoing today. Current Visit: No (3) Seizure Status: Acute Assessment and plan: No further seizure activity noted. Neurology following. On Keppra and Dilantin. Sedated with diprivan. Ativan ordered as needed. Current Visit: Yes (4) Aspiration pneumonia due to food (regurgitated) Status: Acute Assessment and plan: Continue IV antibiotics. Cleocin and Fortaz Current Visit: Yes Qualifiers: Laterality: right Lung location: middle lobe of lung Qualified Code(s): J69.0 - Pneumonitis due to inhalation of food and vomit (5) Respiratory failure Status: Acute Current Visit: Yes Qualifiers: Chronicity: acute Respiratory failure complication: hypoxia Qualified Code(s): J96.01 - Acute respiratory failure with hypoxia Hospitalist: Subjective Interval history: Patient seen and examined. No acute events overnight. Case discussed with nursing staff. Labs reviewed. Patient had to be reintubated after her ET tube was dislodged yesterday. She has been hemodynamically stable throughout the night. Plan for hemodialysis today. Hematocrit noted to be trending down to 24.7. There has been no further seizure activity. Exam - Constitutional Vitals: Period Temp Pulse Resp BP Sys/Gonzalez Pulse Ox Last 24 Hr 97.0 F-99.1 F 60-135 12-51 78-174/28-96 99-100 Exam: Constitutional System: No distress. No tremulousness. Head: Normocephalic, atraumatic. Ears, Nose and Throat System: No pain or tenderness. No epistaxis or discharge. ET tube in place Eyes System: Pupils equal, round, and reactive. Extraocular muscles intact. Neck: Supple, without adenopathy, No jugular venous distention. No thyromegaly, neck mass, or prior surgery apparent. Respiratory System: Chest clear to auscultation. Cardiovascular System: Heart with regular rate and rhythm. No murmur. GI System: Abdomen soft, nontender. Normo active bowel sounds present. Musculoskeletal System: limbs with no pedal edema. Full distal pulses. Neurological System: Sedated. Results - Labs CBC & BMP: 01/16/17 05:15 01/16/17 05:15 Lab Results: I have reviewed the past 24 hour labs Specialty Discharge - Follow Up or Referrals Follow up with: Eric Pricthett MD [Physician] - 01/28/17 10:00 am (APPT. WITH JANUARY 28 FOR LAB @ 10:00AM & 10:50 WITH )
[2017-01-16] MEDS: MULTIVITAMIN (CENTRUM) TABLET PO SCH (09:59)
[2017-01-16] MEDS: ASPIRIN CHEW 81 MG TABLET PO SCH (09:59)
[2017-01-16] MEDS: CALCIUM ACETATE 667 MG CAPSULE PO SCH ×3 (10:00→18:20)
[2017-01-16] MEDS: LIDOCAINE 5% PATCH TRANSDERM SCH (10:00)
[2017-01-16] MEDS: FLUTICASONE/SALMETEROL 250-50 DISKUS 14 DOSE INH SCH (10:16)
[2017-01-16] MEDS: cefTAZidime 500 MG in SODIUM CHLORIDE 0.9% 100 ML IV SCH ×2 (11:06→22:32)
[2017-01-16] MEDS: ONDANSETRON 4 MG/2 ML VIAL IV PRN (13:26)
[2017-01-16] MEDS ORDERED: DILTIAZEM 50 MG/10 ML VIAL IV ONE ×2 (14:40→15:30)
[2017-01-16 15:11] LABS: CSF Olig Bands Interpretation 0 bands (<4); Oligoclonal Bands CSF Bands 1 bands; Oligoconal Banding Serum Bands 1 bands
[2017-01-16] MEDS: PROPOFOL 1,000 MG/100 ML BOTTLE IV SCH (16:16)
[2017-01-16] MEDS: FAMOTIDINE 20 MG/2 ML VIAL IV SCH (16:24)
[2017-01-16] MEDS: INSULIN GLARGINE 100 UNIT/ML SUBCUT SCH (22:23)
[2017-01-16] MEDS: AMIODARONE 200 MG TABLET PO SCH (22:23)
[2017-01-16] MEDS: METOPROLOL TARTRATE 50 MG TABLET PO SCH (22:24)
[2017-01-16] MEDS: MONTELUKAST 10 MG TABLET PO SCH (22:24)
[2017-01-17] MEDS: INSULIN LISPRO 100 UNIT/ML SUBCUT SCH ×4 (00:29→18:12)
[2017-01-17] MEDS: ALBUTEROL/IPRATROPIUM 3 ML NEB RESP TX SCH ×4 (01:15→19:38)
[2017-01-17] MEDS: PHENYTOIN 100 MG/2 ML VIAL IV SCH ×3 (01:38→18:07)
[2017-01-17] MEDS: CLINDAMYCIN INJ 300 MG in PREMIX 1 EACH IV SCH ×3 (02:19→18:11)
[2017-01-17] MEDS: ONDANSETRON 4 MG/2 ML VIAL IV PRN ×2 (03:03→06:55)
[2017-01-17 03:40] LABS: Pt O2 Delivery Device Ventilator
[2017-01-17 03:43] LABS: ABG HCO3 22.8 MMOL/L (20-26); ABG Oxygen Saturation 99.8 % (95-100); ABG PCO2 33.2 MM HG (35-48); ABG PH 7.423 (7.35-7.45); ABG TCO2 19.4 MMOL/L (23-27)
[2017-01-17 05:06] LABS: Basophils # 0.1 10*3/uL (0.0-0.2); Basophils % 0.5 % (0.0-0.8); Eosinophils # 0.5 10*3/uL (0.0-0.87); Eosinophils % 3.1 % (0.00-10.9); Hematocrit 31.4 VOL% (35.7-47.0); Hemoglobin 10.3 GM/DL (12.0-16.0); Immature Granulocytes % 2.6 %; Immature Granulocytes Absolute 0.38 #; Lymphocytes % 6.6 % (21.3-54.2); Mean Corpuscular HGB Conc 32.8 GM/DL (32-36); Mean Corpuscular Hemoglobin 28 PG (27-34); Mean Corpuscular Volume 84.2 FL (87-102); Mean Platelet Volume 10.6 FL (9.6-12.0); Monocytes # 1.6 10*3/uL (0.11-0.8); Monocytes % 10.8 % (1.7-12.7); NRBC # 0.05 10*3/uL; Neutrophils # 11.2 10*3/uL (1.4-7.4); Neutrophils % 76.4 % (38.7-73.9); Platelet Count 218 T/CUMM (130-400); Red Cell Distribution Width 18.8 % (9.3-17.3); White Blood Count 14.6 T/CUMM (4-12)
[2017-01-17 05:14] LABS: Red Blood Count 3.73 MC/CUMM (3.8-5.5)
[2017-01-17 05:16] LABS: Total Cells Counted 0
[2017-01-17 05:39] LABS: Calcium 8.9 MG/DL (8.5-10.1); Magnesium 2.4 MG/DL (1.8-2.4); Osmolality,Calculated 282.5 MOS/KG (273-304); Potassium 3.1 MMOL/L (3.5-5.1)
--- NOTE | 2017-01-17 07:14 | Pulmonology Progress Note ---
Pulmonary - PN: Subj Interval history: 61-year-old female admitted for status epilepticus with resultant aspiration requiring mechanical ventilation. Overnight patient developed abdominal pain/ nausea/vomiting and this morning's chest x-ray is concerning for aspiration. This a.m. her mental status is significantly improved with her following commands and answering questions. No other acute events or changes. Exam (Progress Note) - Constitutional Vitals: Period Temp Pulse Resp BP Sys/Gonzalez Pulse Ox Last 24 Hr 97.2 F-99.0 F 68-156 12-25 87-135/55-88 97-100 General appearance: normal weight - Head Head exam: Present: normal inspection - Eye Eye exam: Present: EOMI Pupils: Present: JOSE - Neck Neck exam: Present: normal inspection - Respiratory Respiratory exam: Present: rhonchi (Bilaterally). Absent: accessory muscle use , rales, wheezes - Cardiovascular Cardiovascular exam: Present: regular rate and rhythm - GI/Abdominal GI/Abdominal exam: Present: normal bowel sounds, tenderness (Diffuse mild), soft. Absent: rebound - Extremities Exam Extremities exam: Present: normal inspection - Neurological Exam Neurological exam: Present: alert - Skin Skin exam: Present: normal color, warm, dry Results - Labs CBC & BMP: 01/17/17 04:58 01/17/17 04:58 - Diagnostic Findings Procedure: Chest x-ray: image reviewed by me (Developing right upper lobe infiltrate, otherwise unchanged) Assessment and Plan (1) Aspiration pneumonia due to food (regurgitated) Status: Acute Assessment and plan: Ventilatory status stable today. Chest x-ray with concern for development of right upper lobe infiltrate, which could represent an aspiration pneumonitis event given her nausea vomiting overnight. Recommend obtaining sputum culture and monitoring for signs of worsening infection which would require broadening of antibiotics. No changes to antibiotics at this time. Chest x-ray in the morning. Continue CPAP trials and could consider extubation in the morning depending on chest x-ray and clinical appearance. Current Visit: Yes Qualifiers: Laterality: right Lung location: middle lobe of lung Qualified Code(s): J69.0 - Pneumonitis due to inhalation of food and vomit (2) Respiratory failure Status: Acute Assessment and plan: Due to status epilepticus induced altered mental status and aspiration event. As above continue weaning trials and will consider extubation tomorrow. Current Visit: Yes Qualifiers: Chronicity: acute Respiratory failure complication: hypoxia Qualified Code(s): J96.01 - Acute respiratory failure with hypoxia (3) Abdominal pain Status: Acute Assessment and plan: New complaint over the last 24 hours with associated nausea and vomiting and possible aspiration pneumonitis on chest x-ray this morning. Recommend further evaluation per IM with LFTs/imaging/holding tube feeds/NG to low intermittent suction. Current Visit: No Qualifiers: Abdominal location: right upper quadrant Qualified Code(s): R10.11 - Right upper quadrant pain (4) Status epilepticus Status: Resolved Assessment and plan: Mental status remains significantly improved this morning with her answering questions and following commands. Current Visit: Yes (5) End stage renal disease on dialysis Status: Chronic Assessment and plan: Hemodialysis today; nephrology following. Current Visit: No Specialty Discharge - Follow Up or Referrals Follow up with: Eric Pritchett MD [Physician] - 01/28/17 10:00 am (APPT. WITH JANUARY 28 FOR LAB @ 10:00AM & 10:50 WITH )
--- NOTE | 2017-01-17 07:31 | XRay Report ---
XR chest 1V portable Indication: Intubated. Chest one view: Comparison yesterday. Dialysis catheter, endotracheal tube, NG tube, central line appear unchanged. Heart size is slightly decreased the prior exam, and overall, lungs are better aerated although there are still persistent coarsening of interstitium diffusely. Impression: Slight reduction cardiomegaly, and minimal improved aeration of the lungs. PROCEDURE INTERPRETED AT [facility] DEPARTMENT OF RADIOLOGY Final Report Signed by: Christiano Wagner M.D.
[2017-01-17] MEDS ORDERED: METOCLOPRAMIDE 10 MG/2 ML VIAL IV ONE (07:33)
[2017-01-17] MEDS: POTASSIUM CHLORIDE RIDER 20 MEQ in PREMIX 1 EACH IV SCH ×2 (07:58→09:23)
--- NOTE | 2017-01-17 08:43 | Nephrology Progress Note ---
Nephrology - PN: Subj Interval history: The patient tolerated dialysis on yesterday. Her new fistula was access however appear to have infiltrated and use catheters instead. Bruit is present at the fistula today. She is awake there is been no further seizures. Serum potassium being supplemented. Exam (PN)-Nephrology - Vital Signs Vital signs: Period Temp Pulse Resp BP Sys/Gonzalez Pulse Ox Last 24 Hr 97.2 F-99.0 F 68-156 12-25 87-135/55-88 97-100 - General Appearance General appearance: well-developed, intubated EENT: ATNC Neck: supple Respiratory: clear Cardiology: no edema, regular rate, regular rhythm Gastrointestinal: normoactive bowel sounds, no tenderness Integumentary: no rash Musculoskeletal: no clubbing - Lab 01/17/17 04:58 01/17/17 04:58 Most recent lab results ABG pH 7.423 (7.35-7.45) 01/17/17 03:30 ABG pCO2 33.2 MM HG (35-48) L 01/17/17 03:30 ABG pO2 181.0 MM HG (80-95) H 01/17/17 03:30 ABG HCO3 22.8 MMOL/L (20-26) 01/17/17 03:30 ABG O2 Saturation 99.8 % (95-100) 01/17/17 03:30 Calcium 8.9 MG/DL (8.5-10.1) 01/17/17 04:58 Phosphorus 3.0 MG/DL (2.5-4.9) 01/14/17 03:57 Magnesium 2.4 MG/DL (1.8-2.4) 01/17/17 04:58 Assessment and Plan (1) COPD (chronic obstructive pulmonary disease) Status: Chronic Assessment and plan: Patient remains ventilated. Current Visit: No Qualifiers: (2) Acute exacerbation of congestive heart failure Status: Acute Current Visit: No Qualifiers: Congestive heart failure type: diastolic Qualified Code(s): I50.33 - Acute on chronic diastolic (congestive) heart failure (3) End stage renal disease Status: Chronic Assessment and plan: Continue with schedule hemodialysis for this patient. Hemodialysis. Current Visit: No (4) Hypertension Status: Chronic Current Visit: No Qualifiers: Hypertension type: essential hypertension Qualified Code(s): I10 - Essential (primary) hypertension (5) ESRD on dialysis Status: Chronic Current Visit: No (6) Status epilepticus Status: Resolved Assessment and plan: Neurology has been evaluating. No further seizures. Current Visit: Yes (7) Seizure Status: Acute Assessment and plan: No further seizures at this time. Current Visit: Yes (8) Anemia Status: Chronic Current Visit: No Qualifiers: Anemia type: due to chronic kidney disease Chronic kidney disease stage: on chronic dialysis Qualified Code(s): N18.6 - End stage renal disease; D63.1 - Anemia in chronic kidney disease; Z99.2 - Dependence on renal dialysis Specialty Discharge - Follow Up or Referrals Follow up with: Eric Pritchett MD [Physician] - 01/28/17 10:00 am (APPT. WITH JANUARY 28 FOR LAB @ 10:00AM & 10:50 WITH )
[2017-01-17] MEDS: CALCIUM ACETATE 667 MG CAPSULE PO SCH ×3 (08:44→17:02)
[2017-01-17] MEDS: ASPIRIN CHEW 81 MG TABLET PO SCH (09:21)
[2017-01-17] MEDS: MULTIVITAMIN (CENTRUM) TABLET PO SCH (09:21)
[2017-01-17] MEDS: AMIODARONE 200 MG TABLET PO SCH ×2 (09:22→20:23)
[2017-01-17] MEDS: DILTIAZEM CD 300 MG CAPSULE PO SCH (09:22)
[2017-01-17] MEDS: FLUTICASONE/SALMETEROL 250-50 DISKUS 14 DOSE INH SCH (09:30)
[2017-01-17] MEDS: LIDOCAINE 5% PATCH TRANSDERM SCH (09:32)
[2017-01-17] MEDS: METOPROLOL TARTRATE 50 MG TABLET PO SCH ×2 (10:16→20:22)
[2017-01-17] MEDS: cefTAZidime 500 MG in SODIUM CHLORIDE 0.9% 100 ML IV SCH (11:32)
--- NOTE | 2017-01-17 12:45 | Hospitalist Progress Note ---
Assessment and Plan (1) Anemia Status: Chronic Assessment and plan: Stable after receiving 2 units of packed red blood cells yesterday on dialysis Current Visit: Yes Qualifiers: Anemia type: due to chronic kidney disease Chronic kidney disease stage: on chronic dialysis Qualified Code(s): N18.6 - End stage renal disease; D63.1 - Anemia in chronic kidney disease; Z99.2 - Dependence on renal dialysis (2) End stage renal disease on dialysis Status: Chronic Assessment and plan: Dialysis per nephrology. Current Visit: No (3) Seizure Status: Acute Assessment and plan: No further seizure activity noted. Neurology following. On Keppra and Dilantin. Ativan ordered as needed. Current Visit: Yes (4) Aspiration pneumonia due to food (regurgitated) Status: Acute Assessment and plan: Continue IV antibiotics. Cleocin and Fortaz Current Visit: Yes Qualifiers: Laterality: right Lung location: middle lobe of lung Qualified Code(s): J69.0 - Pneumonitis due to inhalation of food and vomit (5) Respiratory failure Status: Acute Current Visit: Yes Qualifiers: Chronicity: acute Respiratory failure complication: hypoxia Qualified Code(s): J96.01 - Acute respiratory failure with hypoxia Hospitalist: Subjective Interval history: Patient seen and examined. No acute events overnight. Case discussed with nursing staff. Labs reviewed. Patient with nausea vomiting yesterday and this morning. Tube feeds have been held. NG tube to suction. She is more awake and follows commands. She answers questions appropriately yes and no. Receiving Ativan for sedation as needed. Exam - Constitutional Vitals: Period Temp Pulse Resp BP Sys/Gonzalez Pulse Ox Last 24 Hr 97.2 F-99.0 F 68-156 12-25 87-128/55-88 97-100 Exam: Constitutional System: No distress. No tremulousness. Eyes open and responsive. Head: Normocephalic, atraumatic. Ears, Nose and Throat System: No pain or tenderness. No epistaxis or discharge. ET tube in place Eyes System: Pupils equal, round, and reactive. Extraocular muscles intact. Neck: Supple, without adenopathy, No jugular venous distention. Respiratory System: Chest clear to auscultation. Cardiovascular System: Heart with regular rate and rhythm. No murmur. GI System: Abdomen soft, nontender. Normo active bowel sounds present. Musculoskeletal System: limbs with no pedal edema. Full distal pulses. Right upper extremity with swelling Neurological System: Grossly intact Results - Labs CBC & BMP: 01/17/17 04:58 01/17/17 04:58 Lab Results: I have reviewed the past 24 hour labs Specialty Discharge - Follow Up or Referrals Follow up with: Eric Pritchett MD [Physician] - 01/28/17 10:00 am (APPT. WITH JANUARY 28 FOR LAB @ 10:00AM & 10:50 WITH )
--- NOTE | 2017-01-17 15:04 | XRay Report ---
XR KUB Indication: Nausea and vomiting. Abdomen 2 views: NG tube extends well into the stomach. Scattered calcifications are noted, likely vascular. No small bowel dilatation. Some stool and gas is seen in the colon although the amount is minimal. No evidence of free air. Impression: Nonspecific bowel gas pattern. PROCEDURE INTERPRETED AT [facility] DEPARTMENT OF RADIOLOGY Final Report Signed by: Christiano Wagner M.D.
[2017-01-17] MEDS: FAMOTIDINE 20 MG/2 ML VIAL IV SCH (15:36)
[2017-01-17] MEDS: INSULIN GLARGINE 100 UNIT/ML SUBCUT SCH (18:15)
[2017-01-17] MEDS ORDERED: HYDROmorphone 2 MG/1 ML VIAL IV PRN (19:46)
[2017-01-17] MEDS: GABAPENTIN 50 MG/ML 30 ML/BOTTLE PO SCH (20:21)
[2017-01-17] MEDS: MONTELUKAST 10 MG TABLET PO SCH (20:22)
[2017-01-17] MEDS: LORazepam 2 MG/1 ML VIAL IV PRN (21:36)
[2017-01-18] MEDS: INSULIN LISPRO 100 UNIT/ML SUBCUT SCH ×4 (01:20→18:20)
[2017-01-18] MEDS: PHENYTOIN 100 MG/2 ML VIAL IV SCH ×3 (01:20→18:09)
[2017-01-18] MEDS: cefTAZidime 500 MG in SODIUM CHLORIDE 0.9% 100 ML IV SCH ×3 (01:21→23:50)
[2017-01-18] MEDS: ALBUTEROL/IPRATROPIUM 3 ML NEB RESP TX SCH ×4 (01:49→18:59)
[2017-01-18] MEDS: CLINDAMYCIN INJ 300 MG in PREMIX 1 EACH IV SCH ×3 (03:30→18:09)
[2017-01-18 04:33] LABS: Basophils # 0.1 10*3/uL (0.0-0.2); Basophils % 0.5 % (0.0-0.8); Eosinophils # 0.6 10*3/uL (0.0-0.87); Eosinophils % 4.2 % (0.00-10.9); Hematocrit 29.9 VOL% (35.7-47.0); Hemoglobin 9.6 GM/DL (12.0-16.0); Immature Granulocytes % 2.5 %; Immature Granulocytes Absolute 0.34 #; Lymphocytes # 1.2 10*3/uL (1.4-4.0); Lymphocytes % 8.5 % (21.3-54.2); Mean Corpuscular HGB Conc 32.1 GM/DL (32-36); Mean Corpuscular Hemoglobin 28 PG (27-34); Mean Corpuscular Volume 85.7 FL (87-102); Mean Platelet Volume 11.3 FL (9.6-12.0); Monocytes # 1.4 10*3/uL (0.11-0.8); Monocytes % 10.7 % (1.7-12.7); NRBC # 0.07 10*3/uL; Neutrophils # 9.9 10*3/uL (1.4-7.4); Neutrophils % 73.6 % (38.7-73.9); Platelet Count 273 T/CUMM (130-400); Red Blood Count 3.49 MC/CUMM (3.8-5.5); Red Cell Distribution Width 19.8 % (9.3-17.3); White Blood Count 13.5 T/CUMM (4-12)
[2017-01-18 04:52] LABS: ABG Base Excess -2.9 MMOL/L (-2.5-2.5); ABG HCO3 19.9 MMOL/L (20-26); ABG Oxygen Saturation 99.3 % (95-100); ABG PCO2 28.1 MM HG (35-48); ABG PH 7.468 (7.35-7.45); ABG PO2 221.7 MM HG (80-95); ABG TCO2 20.8 MMOL/L (23-27); Allen Test Positive; Pt O2 Delivery Device Ventilator
[2017-01-18 05:07] LABS: Albumin 2.2 G/DL (3.4-5.0); Bilirubin,Total 0.9 MG/DL (0.2-1.0); Calcium 9.1 MG/DL (8.5-10.1); Osmolality,Calculated 285.4 MOS/KG (273-304); Potassium 3.6 MMOL/L (3.5-5.1); Total Protein 6.6 G/DL (6.4-8.3)
[2017-01-18 05:12] LABS: Magnesium 2.5 MG/DL (1.8-2.4); Phosphorous 1.3 MG/DL (2.5-4.9); Prealbumin 23.1 MG/DL (20-40)
--- NOTE | 2017-01-18 07:31 | XRay Report ---
History: Patient on ventilator Date: 01/18/2017 Study: Chest x-ray AP portable Comparison exam: 01/17/2017 Endotracheal tube, nasogastric tube, right upper extremity dialysis catheter, and left upper extremity central venous line remain in satisfactory position. There is no pneumothorax. There is stable cardiomegaly. The mediastinal contours are similar. The pulmonary vasculature is not engorged. The left lung is generally clear. Some previous atelectatic change in the right upper lung has improved on the current exam. There is some increased strandy and hazy atelectasis/infiltrate in the right lung base compared to the previous study. Osseous structures are similar. Impression: Increasing atelectasis/infiltrate in the right lung base compared to the previous study. Improved aeration in the right upper lung compared to the previous study. Otherwise unchanged PROCEDURE INTERPRETED AT [facility] DEPARTMENT OF RADIOLOGY Final Report Signed by: Dr. Mindy Knight
[2017-01-18] MEDS: CALCIUM ACETATE 667 MG CAPSULE PO SCH ×3 (08:17→16:45)
--- NOTE | 2017-01-18 08:49 | Nephrology Progress Note ---
Nephrology - PN: Subj Interval history: Denies SOB/pain. Exam (PN)-Nephrology - Vital Signs Vital signs: Period Temp Pulse Resp BP Sys/Gonzalez Pulse Ox Last 24 Hr 97.9 F-98.8 F 50-103 12-25 80-134/45-76 97-100 - General Appearance General appearance: well-developed, chronically ill EENT: ATNC, PERRL Neck: no JVD, no thyromegaly Respiratory: no kyphosis, no scoliosis Cardiology: no murmurs, no rub Gastrointestinal: normoactive bowel sounds, no tenderness Integumentary: no rash, warm and dry Neurologic: no focal deficit, no asterixis Musculoskeletal: no deformities, no erythema Psychiatric: mood/affect appropriate, cooperative - Lab 01/18/17 03:32 01/18/17 03:32 Most recent lab results ABG pH 7.468 (7.35-7.45) H 01/18/17 04:53 ABG pCO2 28.1 MM HG (35-48) L 01/18/17 04:53 ABG pO2 221.7 MM HG (80-95) H 01/18/17 04:53 ABG HCO3 19.9 MMOL/L (20-26) L 01/18/17 04:53 ABG O2 Saturation 99.3 % (95-100) 01/18/17 04:53 Calcium 9.1 MG/DL (8.5-10.1) 01/18/17 03:32 Phosphorus 1.3 MG/DL (2.5-4.9) L 01/18/17 03:32 Magnesium 2.5 MG/DL (1.8-2.4) H 01/18/17 03:32 Assessment and Plan (1) ESRD on dialysis Problem details: No indication for HD today. Status: Chronic Current Visit: No Specialty Discharge - Follow Up or Referrals Follow up with: Eric Pritchett MD [Physician] - 01/28/17 10:00 am (APPT. WITH JANUARY 28 FOR LAB @ 10:00AM & 10:50 WITH )
[2017-01-18] MEDS: ASPIRIN CHEW 81 MG TABLET PO SCH (09:30)
[2017-01-18] MEDS: LIDOCAINE 5% PATCH TRANSDERM SCH (09:30)
[2017-01-18] MEDS ORDERED: DILTIAZEM 90 MG TABLET PO SCH (09:30)
[2017-01-18] MEDS: AMIODARONE 200 MG TABLET PO SCH ×2 (09:30→21:57)
[2017-01-18] MEDS: MULTIVITAMIN (CENTRUM) TABLET PO SCH (09:30)
[2017-01-18] MEDS: METOPROLOL TARTRATE 50 MG TABLET PO SCH (09:30)
--- NOTE | 2017-01-18 09:33 | Event Note ---
In hospital therapeutic and dark diagnostic fiberoptic bronchoscopy with Gram stain, bacterial cultures, fungal stains and cultures. This is a 61-year-old black female who has had status epilepticus. She is on mechanical ventilation. She has underlying COPD. She has retained secretions. Her cough is in effective she has thought to possibly have re-aspirated. She has documented aspiration the recent past. She has had erosive friable bibasilar bronchitis. For these reasons the patient's evaluated with fiberoptic bronchoscopy. Endotracheal tube is in good position. The distal trachea is markedly collapsible secondary to COPD. The arvin is sharp. The right mainstem bronchus was full of thick tenacious secretions. These did not appear to be discolored. These were removed with suctioning and the right upper lung right middle lung and right lower lung were lavaged. Specimens were sent for studies noted above. Large and small airways were markedly collapsible. There was a small amount of residual erosive bronchitis in the right lower lung. The left mainstem bronchus had a lot of secretions. These extended into the left upper lung and left lower lung. Secretions were none discolored and are markedly improved from previous studies. These were removed from the bronchi and the patient had a left lower lung and left upper lung large. These specimens were all sent for the studies noted above. Large and small airways are markedly collapsible. Previously noted erosive friable bronchitis in the left lower lung and the and in the lingula have resolved. I saw no endobronchial lesions on the right or left that had a cancerous appearance. The patient tolerated procedure well there were no complications. Impression. 1. COPD with markedly collapsible airways 2. Resolving bibasilar erosive friable bronchitis related to aspiration injury and bacterial superinfection. 3. Ineffective cough 4. Retained secretions 5. Mechanical ventilation 6. Aspiration earlier during this hospitalization. No recent aspiration. Plan. 1. Continue present treatment 2. Check bronchoscopy specimens. #3 follow-up chest
--- NOTE | 2017-01-18 09:53 | Hospitalist Progress Note ---
Assessment and Plan (1) Anemia Status: Chronic Assessment and plan: Stable after receiving 2 units of packed red blood cells on dialysis Current Visit: Yes Qualifiers: Anemia type: due to chronic kidney disease Chronic kidney disease stage: on chronic dialysis Qualified Code(s): N18.6 - End stage renal disease; D63.1 - Anemia in chronic kidney disease; Z99.2 - Dependence on renal dialysis (2) End stage renal disease on dialysis Status: Chronic Assessment and plan: Dialysis per nephrology. Current Visit: No (3) Seizure Status: Acute Assessment and plan: No further seizure activity noted. Neurology following. On Keppra and Dilantin. Ativan ordered as needed. Current Visit: Yes (4) Aspiration pneumonia due to food (regurgitated) Status: Acute Assessment and plan: Continue IV antibiotics. Cleocin and Fortaz. Bronchoscopy report reviewed showing retained secretions. Follow-up culture samples. Current Visit: Yes Qualifiers: Laterality: right Lung location: middle lobe of lung Qualified Code(s): J69.0 - Pneumonitis due to inhalation of food and vomit (5) Respiratory failure Status: Acute Current Visit: Yes Qualifiers: Chronicity: acute Respiratory failure complication: hypoxia Qualified Code(s): J96.01 - Acute respiratory failure with hypoxia Hospitalist: Subjective Interval history: Patient seen and examined. Case discussed with the nurse at the bedside. Cardizem switched from sustained release to immediate release for ease of administration through NG tube. No acute events overnight. The patient is neurologically improved and requires some Ativan for sedation. No further seizure activity. The patient has not been able to tolerate tube feeds well. A KUB was performed showing a normal bowel gas pattern. Tube feeds will be reinitiated today as well as Reglan to avoid high residuals and nausea and vomiting. Exam - Constitutional Vitals: Period Temp Pulse Resp BP Sys/Gonazlez Pulse Ox Last 24 Hr 97.9 F-98.8 F 50-103 12-25 80-134/45-76 98-100 Exam: Constitutional System: No distress. No tremulousness. Eyes open and responsive. Head: Normocephalic, atraumatic. Ears, Nose and Throat System: No pain or tenderness. No epistaxis or discharge. ET tube in place Eyes System: Pupils equal, round, and reactive. Extraocular muscles intact. Neck: Supple, without adenopathy, No jugular venous distention. Respiratory System: Chest clear to auscultation. Cardiovascular System: Heart with regular rate and rhythm. No murmur. GI System: Abdomen soft, nontender. Normo active bowel sounds present. Musculoskeletal System: limbs with no pedal edema. Full distal pulses. Right upper extremity with swelling Neurological System: Grossly intact Results - Labs CBC & BMP: 01/18/17 03:32 01/18/17 03:32 Lab Results: I have reviewed the past 24 hour labs Specialty Discharge - Follow Up or Referrals Follow up with: Eric Pritchett MD [Physician] - 01/28/17 10:00 am (APPT. WITH JANUARY 28 FOR LAB @ 10:00AM & 10:50 WITH )
--- NOTE | 2017-01-18 10:32 | Pulmonology Progress Note ---
Pulmonary - PN: Subj Interval history: This is a 61-year-old black female whom I saw in pulmonary consultation on 2016. Patient had a seizure. She was postictal. Staff noted been present for certain of this patient had not aspirated. Patient required transfer to intensive care unit. My impressions were. #1: New onset seizure #2: Bradycardia. Improved #3: COPD #4: Chronic renal failure which requires dialysis 3 days a week. Note, her normal schedule is Wednesday, , and Wednesday. #5: History of atrial fib #6: Past history of tobacco abuse. Patient stopped smoking December 2015. #7: Underlying heart disease with decreased ejection fraction. Mild mitral regurgitation. Mild pulmonary artery pressure elevation. #8: Past history of gastroesophageal reflux disease. Watch for reflux with microaspiration. #9: See past history 01/12/2017. This morning's chest x-ray shows complete atelectasis of the left upper lung and left lower lung. This was evaluated with fiberoptic bronchoscopy. See report. Patient had a tremendous amount of retained secretions that partially occluded the right bronchial tree and completely occluded the left mainstem bronchus and all the distal segments. This was removed with suction and lavage. There was underlying erosive friable bronchitis bilaterally. This had the appearance of aspirated gastric acid injury. This patient has no gag reflex. She is unarousable. She cannot protect her upper airways. I have asked staff to put an NG tube with intermittent suctioning down and if this patient does not do well post bronchoscopy we should consider intubation and mechanical ventilation until she wakes up. White count is 12,900 with 86. H&H is 9.8/31.2. Electrolytes are normal. Creatinine 6.1 with a BUN of 40. Thyroid function tests are normal. 01/13/2017 peer today's chest x-ray shows cardiomegaly. There is mild atelectasis at the right and left bases and there is a residual infiltrate in the right upper lung. Fiberoptic bronchoscopy was done 01/13/2017. Endobronchially the patient is much improved with still some residual areas of erosive friable bronchitis. There is slight collapsibility of the large and small airways. There was significant retention of pulmonary secretions. These were removed and sent for studies. ABGs on mechanical ventilation and FiO2 of 60% shows a pH of 7.495, PCO2 28.3, PO2 of 214.8 and a bicarb of 12.3. Patient' s on a weaning protocol. H&H is dropped 8.1/24.8. White count is 7100. Platelets are 190,000. Dilantin level is 11.5. There are no positive culture. Gram stain from bronchoscopy showed gram-positive cocci and many white blood cells. 01/14/2017. Today's chest x-ray shows cardiomegaly. Central venous fullness. Increased interstitial markings in both upper and lower lungs. Endotracheal tube is in good position. ABGs on FiO2 of 60% shows a pH 7.39, PCO2 36, PO2 of 150 and a bicarb of 22. Electrolytes are normal. Creatinine is 5.2 with a BUN of 31. White count 8100 with 71 segs. Patient has had lumbar puncture. Glucose is a 76 and total protein are 19 white blood cells are 6. All antigens are negative. This does not appear to be infected. Bronchoalveolar lavage from 01/12/2017 grew E. coli and yeast. Patient still not arousable. 01/15/2017. This is a 61-year-old black female long-term dialysis patient who has underlying heart disease with a decreased ejection fraction and with mitral regurgitation. She was admitted with new onset seizures. She had aspiration with retention of gastric contents and the retention of a tremendous amount of pulmonary secretions. She has been nonresponsive. She required intubation mechanical ventilation. Neurology has evaluated her. I am told that the patient would occasionally open her eyes but she is nonresponsive on my exam. She is on a weaning protocol mechanical ventilation and does fairly well with CPAP but will be unable to protect her airways and tissue begins to wake up. Today's chest x-ray shows cardiomegaly right perihilar infiltrate and slight elevation of the right hemidiaphragm with preservation of normal contour. This appears to be an anterior eventration. Endotracheal tube is in good position. ABGs on mechanical ventilation with an FiO2 of 60% show a pH of 7.49, PCO2 33, PO2 of 205 and a bicarb of 24.4 electrolytes normal. Creatinine is 2.80 down from 5.20 yesterday. White count is 8000 with 67 segs. H&H is 8.5/26.9 and platelets of 220,000 patient has had a lumbar puncture and this shows no evidence of infection Dilantin level is 11.5. She is also on Keppra. She is on Neurontin and I have discussed this with neurology and we have agreed to stop this medicine. Bronchoscopy specimens have grown E. coli and yeast and specimens submitted on 01/13/2017 are growing a gram-positive cocci which has not been identified. This patient is on the weaning protocol and physical therapy protocol. 01/18/2017. From neurological standpoint the patient is beginning to wake up. Her seizures appear to be under control. She is comfortable with CPAP and did 12 hours yesterday. Her chest x-ray shows atelectasis at the medial base of the left lung and at the medial base of the right lung. She has had coarse congestion over airways and there is been a difficult time keeping her suction. For this reason she was reevaluated with fiberoptic bronchoscopy today. She did have a tremendous amount of thick tenacious secretions but a lot less than before and her underlying erosive friable bronchitis is resolving. From a bronchoscopy standpoint she looks much better. ABGs on mechanical ventilation FiO2 50% shows a pH of 7.47, PCO2 28, PO2 121. Electrolytes are normal. Creatinine is 4.8 with a BUN of 29. Alkaline [place] is elevated 264. White blood cell count is 13,500. Overall the patient looks much better and hopefully we can rapidly advance her weaning protocol. Physical exam. Vital signs. See below Neurologic. Unarousable. Neck. Symmetrical. No meningismus. Lymphatics. No submandibular cervical supraclavicular or epitrochlear adenopathy Chest. Large airway congestion on the right. Pre-bronchoscopy no air movement on the left. Post bronchoscopy coarse large airway congestion was heard over the left upper lung and left lower lung. Heart. Lateral PMI Abdomen. Only a very rare bowel sound. Face. Symmetrical. No unusual swelling of the tongue or lips. The remainder the exam is noncontributory. Plan. 01/12/2007. 1. NG tube with intermittent suction 2. The patient has any increase in respiratory distress she needs to be intubated and she needs mechanical ventilation. 3. Follow-up bronchoscopy tomorrow 4. Daily chest x-rays and ABGs. 5. Daily lab. 01/13/2017. 1. See my note. 2. Patient was intubated 01/12/2017 3. Fiberoptic bronchoscopies were done 01/12/2017 and 01/13/2017. 4. Weaning protocol 5. Physical therapy protocol. 01/14/2017 1. See today's note above. 2. Mechanical ventilation with weaning protocol and physical therapy protocol. From a neurological standpoint patient cannot be totally weaned 3. Daily chest x-ray, ABGs and lab. 01/15/2017. 1. See today's note above. 2. Check recent sputum cultures which were obtained with fiberoptic bronchoscopy 3. Continue mechanical ventilation weaning protocol and physical therapy protocol. Patient remains nonresponsive and is not ready for extubation. She cannot protect her airways. 01/18/2017. 1. Daily chest x-ray ABGs and lab. #2. Check fiberoptic bronchoscopy results 3. Weaning and physical therapy protocol 4. See today's note above Exam (Progress Note) - Constitutional Vitals: Period Temp Pulse Resp BP Sys/Gonzalez Pulse Ox Last 24 Hr 97.9 F-98.8 F 50-103 12-100 80-134/45-82 98-100 Results - Labs CBC & BMP: 01/18/17 03:32 01/18/17 03:32 Specialty Discharge - Follow Up or Referrals Follow up with: Eric Pritchett MD [Physician] - 01/28/17 10:00 am (APPT. WITH JANUARY 28 FOR LAB @ 10:00AM & 10:50 WITH )
[2017-01-18] MEDS: FLUTICASONE/SALMETEROL 250-50 DISKUS 14 DOSE INH SCH (10:40)
[2017-01-18] MEDS: GABAPENTIN 50 MG/ML 30 ML/BOTTLE NG SCH (10:42)
[2017-01-18] MEDS: DILTIAZEM CD 300 MG CAPSULE PO SCH (10:43)
[2017-01-18] MEDS: METOCLOPRAMIDE 10 MG/2 ML VIAL IV SCH ×3 (11:51→23:50)
[2017-01-18] MEDS: DESITIN 4OZ/NYSTATIN 15 GRAM MIXTURE PASTE TOP SCH ×3 (12:56→21:58)
[2017-01-18] MEDS ORDERED: CALCIUM CHLORIDE 1,000 MG/10 ML SYRINGE IV ONE ×2 (14:40→14:56)
[2017-01-18] MEDS ORDERED: SODIUM CHLORIDE 0.9% 500 ML IV ONE (14:46)
[2017-01-18] MEDS ORDERED: CALCIUM CHLORIDE 1,000 MG in SODIUM CHLORIDE 0.9% 100 ML IV ONE (14:46)
[2017-01-18] MEDS: FAMOTIDINE 20 MG/2 ML VIAL IV SCH (15:55)
[2017-01-18] MEDS ORDERED: DOPamine 800 MG/250 ML PREMIX IV ONE (16:39)
[2017-01-18] MEDS ORDERED: DOPamine 800 MG/250 ML PREMIX IV SCH (17:00)
[2017-01-18] MEDS ORDERED: POTASSIUM PHOSPHATE 30 MMOL in SODIUM CHLORIDE 0.9% 250 ML IV ONE (17:49)
--- NOTE | 2017-01-18 17:54 | Neurology Progress Note ---
Neurology - PN : Subjective Interval history: Patient seems to be doing much better. She is alert and awake but not following any commands. No more seizures reported Exam (Progress Note) - Constitutional Vitals: Period Temp Pulse Resp BP Sys/Gonzalez Pulse Ox Last 24 Hr 97.8 F-98.6 F 50-103 12-100 70-134/45-82 97-100 Exam: GENERAL: Patient is in no acute distress. NECK: Neck is supple. There is no JVD. No carotid bruits present. No thyroid masses. CVS: First and second heart sounds are normal. There is no S3 present. Regular rate and rhythm. RESPIRATORY: Lungs are clear to auscultation without any rales or rhonchi. ABDOMEN: Soft and non-tender. Bowel sounds are present. There is no hepatosplenomegaly. EXT: There is no palpable edema. Peripheral pulses are present. Skin: No rashes Central Nervous system: General: Opening her eyes upon stimulation as well as on commands Speech: None/is still on vent Comprehension: None Facial expressions: Normal Cranial Nerves: Pupils are sluggish but reactive. Doll's head eye movements are positive. No facial asymmetry seen. Motor: Bulk and Tone is normal. Continuous periodic jerking seen primarily in the left side. Strength cannot be assessed Sensory: Cannot be assessed Reflexes: 1+ and symmetrical Cerebellar function: Cannot be assessed Toes: Equivocal Gait: Cannot be assessed Results - Labs CBC & BMP: 01/18/17 03:32 01/18/17 03:32 Assessment and Plan (1) Status epilepticus Status: Resolved Assessment and plan: Continue Dilantin and Keppra Cont. current supportive and vent management Current Visit: Yes Specialty Discharge - Follow Up or Referrals Follow up with: Eric Pritchett MD [Physician] - 01/28/17 10:00 am (APPT. WITH JANUARY 28 FOR LAB @ 10:00AM & 10:50 WITH )
[2017-01-18] MEDS: INSULIN GLARGINE 100 UNIT/ML SUBCUT SCH (18:20)
[2017-01-18] MEDS: MONTELUKAST 10 MG TABLET PO SCH (21:57)
[2017-01-18] MEDS: GABAPENTIN 50 MG/ML 30 ML/BOTTLE PO SCH (21:57)
[2017-01-19] MEDS: INSULIN LISPRO 100 UNIT/ML SUBCUT SCH ×3 (00:04→11:44)
[2017-01-19] MEDS: ALBUTEROL/IPRATROPIUM 3 ML NEB RESP TX SCH ×3 (00:07→12:34)
[2017-01-19] MEDS: PHENYTOIN 100 MG/2 ML VIAL IV SCH ×2 (02:33→09:02)
[2017-01-19] MEDS: CLINDAMYCIN INJ 300 MG in PREMIX 1 EACH IV SCH ×2 (02:38→10:04)
[2017-01-19 03:30] LABS: ABG Base Excess -6.9 MMOL/L (-2.5-2.5); ABG HCO3 17.3 MMOL/L (20-26); ABG Oxygen Saturation 98.7 % (95-100); ABG PCO2 30.1 MM HG (35-48); ABG PH 7.377 (7.35-7.45); ABG PO2 134.6 MM HG (80-95); ABG TCO2 18.2 MMOL/L (23-27); Allen Test Positive; Pt O2 Delivery Device Ventilator
[2017-01-19 03:45] LABS: Basophils # 0.1 10*3/uL (0.0-0.2); Basophils % 0.6 % (0.0-0.8); Eosinophils # 0.5 10*3/uL (0.0-0.87); Eosinophils % 3.8 % (0.00-10.9); Hematocrit 28.7 VOL% (35.7-47.0); Hemoglobin 9.3 GM/DL (12.0-16.0); Immature Granulocytes % 1.2 %; Immature Granulocytes Absolute 0.16 #; Lymphocytes # 1.2 10*3/uL (1.4-4.0); Lymphocytes % 8.7 % (21.3-54.2); Mean Corpuscular HGB Conc 32.4 GM/DL (32-36); Mean Corpuscular Hemoglobin 28 PG (27-34); Mean Corpuscular Volume 87.8 FL (87-102); Mean Platelet Volume 9.9 FL (9.6-12.0); Monocytes # 1.5 10*3/uL (0.11-0.8); Monocytes % 10.7 % (1.7-12.7); NRBC # 0.05 10*3/uL; Neutrophils # 10.2 10*3/uL (1.4-7.4); Platelet Count 247 T/CUMM (130-400); Red Blood Count 3.27 MC/CUMM (3.8-5.5); Red Cell Distribution Width 19.9 % (9.3-17.3); White Blood Count 13.6 T/CUMM (4-12)
[2017-01-19 04:15] LABS: Albumin 2.1 G/DL (3.4-5.0); Bilirubin,Total 0.5 MG/DL (0.2-1.0); Calcium 8.8 MG/DL (8.5-10.1); Osmolality,Calculated 298.3 MOS/KG (273-304); Potassium 4.2 MMOL/L (3.5-5.1); Total Protein 6.3 G/DL (6.4-8.3)
[2017-01-19] MEDS: METOCLOPRAMIDE 10 MG/2 ML VIAL IV SCH ×2 (06:19→11:37)
--- NOTE | 2017-01-19 08:02 | XRay Report ---
History: Patient on ventilator Date: 01/19/2017 Study: Chest x-ray AP portable Comparison exam: 01/18/2017 The supporting tubes are unchanged. There is stable cardiomegaly. The mediastinal contours are similar. The pulmonary vasculature is not engorged. There is improved inspiration. The left lung is generally clear. There is persistent but improved mild strandy atelectatic change in the right lung base. There is no interval worsening. There is no pneumothorax. Osseous structures are similar. Impression: Persistent but improved mild right basilar atelectasis. Improved inspiration compared to the previous day. No interval worsening PROCEDURE INTERPRETED AT [facility] DEPARTMENT OF RADIOLOGY Final Report Signed by: Dr. Mindy Knight
[2017-01-19] MEDS: MULTIVITAMIN (CENTRUM) TABLET PO SCH (08:56)
[2017-01-19] MEDS: ASPIRIN CHEW 81 MG TABLET PO SCH (08:56)
[2017-01-19] MEDS: AMIODARONE 200 MG TABLET PO SCH (08:57)
[2017-01-19] MEDS: FLUTICASONE/SALMETEROL 250-50 DISKUS 14 DOSE INH SCH (08:57)
[2017-01-19] MEDS: CALCIUM ACETATE 667 MG CAPSULE PO SCH ×2 (08:57→11:46)
[2017-01-19] MEDS: LIDOCAINE 5% PATCH TRANSDERM SCH (08:57)
[2017-01-19] MEDS: GABAPENTIN 50 MG/ML 30 ML/BOTTLE NG SCH (08:58)
--- NOTE | 2017-01-19 09:03 | Pulmonology Progress Note ---
Pulmonary - PN: Subj Interval history: This is a 61-year-old black female whom I saw in pulmonary consultation on 2016. Patient had a seizure. She was postictal. Staff noted been present for certain of this patient had not aspirated. Patient required transfer to intensive care unit. My impressions were. #1: New onset seizure #2: Bradycardia. Improved #3: COPD #4: Chronic renal failure which requires dialysis 3 days a week. Note, her normal schedule is Wednesday, , and Wednesday. #5: History of atrial fib #6: Past history of tobacco abuse. Patient stopped smoking December 2015. #7: Underlying heart disease with decreased ejection fraction. Mild mitral regurgitation. Mild pulmonary artery pressure elevation. #8: Past history of gastroesophageal reflux disease. Watch for reflux with microaspiration. #9: See past history 01/12/2017. This morning's chest x-ray shows complete atelectasis of the left upper lung and left lower lung. This was evaluated with fiberoptic bronchoscopy. See report. Patient had a tremendous amount of retained secretions that partially occluded the right bronchial tree and completely occluded the left mainstem bronchus and all the distal segments. This was removed with suction and lavage. There was underlying erosive friable bronchitis bilaterally. This had the appearance of aspirated gastric acid injury. This patient has no gag reflex. She is unarousable. She cannot protect her upper airways. I have asked staff to put an NG tube with intermittent suctioning down and if this patient does not do well post bronchoscopy we should consider intubation and mechanical ventilation until she wakes up. White count is 12,900 with 86. H&H is 9.8/31.2. Electrolytes are normal. Creatinine 6.1 with a BUN of 40. Thyroid function tests are normal. 01/13/2017 peer today's chest x-ray shows cardiomegaly. There is mild atelectasis at the right and left bases and there is a residual infiltrate in the right upper lung. Fiberoptic bronchoscopy was done 01/13/2017. Endobronchially the patient is much improved with still some residual areas of erosive friable bronchitis. There is slight collapsibility of the large and small airways. There was significant retention of pulmonary secretions. These were removed and sent for studies. ABGs on mechanical ventilation and FiO2 of 60% shows a pH of 7.495, PCO2 28.3, PO2 of 214.8 and a bicarb of 12.3. Patient' s on a weaning protocol. H&H is dropped 8.1/24.8. White count is 7100. Platelets are 190,000. Dilantin level is 11.5. There are no positive culture. Gram stain from bronchoscopy showed gram-positive cocci and many white blood cells. 01/14/2017. Today's chest x-ray shows cardiomegaly. Central venous fullness. Increased interstitial markings in both upper and lower lungs. Endotracheal tube is in good position. ABGs on FiO2 of 60% shows a pH 7.39, PCO2 36, PO2 of 150 and a bicarb of 22. Electrolytes are normal. Creatinine is 5.2 with a BUN of 31. White count 8100 with 71 segs. Patient has had lumbar puncture. Glucose is a 76 and total protein are 19 white blood cells are 6. All antigens are negative. This does not appear to be infected. Bronchoalveolar lavage from 01/12/2017 grew E. coli and yeast. Patient still not arousable. 01/15/2017. This is a 61-year-old black female long-term dialysis patient who has underlying heart disease with a decreased ejection fraction and with mitral regurgitation. She was admitted with new onset seizures. She had aspiration with retention of gastric contents and the retention of a tremendous amount of pulmonary secretions. She has been nonresponsive. She required intubation mechanical ventilation. Neurology has evaluated her. I am told that the patient would occasionally open her eyes but she is nonresponsive on my exam. She is on a weaning protocol mechanical ventilation and does fairly well with CPAP but will be unable to protect her airways and tissue begins to wake up. Today's chest x-ray shows cardiomegaly right perihilar infiltrate and slight elevation of the right hemidiaphragm with preservation of normal contour. This appears to be an anterior eventration. Endotracheal tube is in good position. ABGs on mechanical ventilation with an FiO2 of 60% show a pH of 7.49, PCO2 33, PO2 of 205 and a bicarb of 24.4 electrolytes normal. Creatinine is 2.80 down from 5.20 yesterday. White count is 8000 with 67 segs. H&H is 8.5/26.9 and platelets of 220,000 patient has had a lumbar puncture and this shows no evidence of infection Dilantin level is 11.5. She is also on Keppra. She is on Neurontin and I have discussed this with neurology and we have agreed to stop this medicine. Bronchoscopy specimens have grown E. coli and yeast and specimens submitted on 01/13/2017 are growing a gram-positive cocci which has not been identified. This patient is on the weaning protocol and physical therapy protocol. 01/18/2017. From neurological standpoint the patient is beginning to wake up. Her seizures appear to be under control. She is comfortable with CPAP and did 12 hours yesterday. Her chest x-ray shows atelectasis at the medial base of the left lung and at the medial base of the right lung. She has had coarse congestion over airways and there is been a difficult time keeping her suction. For this reason she was reevaluated with fiberoptic bronchoscopy today. She did have a tremendous amount of thick tenacious secretions but a lot less than before and her underlying erosive friable bronchitis is resolving. From a bronchoscopy standpoint she looks much better. ABGs on mechanical ventilation FiO2 50% shows a pH of 7.47, PCO2 28, PO2 121. Electrolytes are normal. Creatinine is 4.8 with a BUN of 29. Alkaline [place] is elevated 264. White blood cell count is 13,500. Overall the patient looks much better and hopefully we can rapidly advance her weaning protocol. 01/19/2017. This is [place] on stage V of the weaning protocol. Today's chest x- ray shows no infiltrates on the left there is faint increased markings in the right lower lung. There is no congestive heart failure. Bronchoscopy specimens from 01/18/2017 are negative. ABGs on mechanical ventilation FiO2 50% show a pH of 7.38, PCO2 30, PO2 of 134 and a bicarb of 17.3. Electrolytes are normal. Creatinine is 5.8. BUN is 49. Patient is for dialysis today. White count is 13,600. H&H 9.3 of 28.7 and platelets of 247,000. Glucoses are under good control. I talked to the patient's daughter today. I told her that if all goes well she will probably be off mechanical ventilation within the next week. I answered all her questions which are all very reasonable. She said she would pass follow this along to the rest of the family. Willi Leblanc nurse practitioner was present. Dr. Dan and I reviewed the case and we have coordinated care. Labs been reviewed. Medicines have been reviewed Physical exam. Vital signs. See below Neurologic. Unarousable. Neck. Symmetrical. No meningismus. Lymphatics. No submandibular cervical supraclavicular or epitrochlear adenopathy Chest. Large airway congestion on the right. Pre-bronchoscopy no air movement on the left. Post bronchoscopy coarse large airway congestion was heard over the left upper lung and left lower lung. Heart. Lateral PMI Abdomen. Only a very rare bowel sound. Face. Symmetrical. No unusual swelling of the tongue or lips. The remainder the exam is noncontributory. Plan. 01/12/2007. 1. NG tube with intermittent suction 2. The patient has any increase in respiratory distress she needs to be intubated and she needs mechanical ventilation. 3. Follow-up bronchoscopy tomorrow 4. Daily chest x-rays and ABGs. 5. Daily lab. 01/13/2017. 1. See my note. 2. Patient was intubated 01/12/2017 3. Fiberoptic bronchoscopies were done 01/12/2017 and 01/13/2017. 4. Weaning protocol 5. Physical therapy protocol. 01/14/2017 1. See today's note above. 2. Mechanical ventilation with weaning protocol and physical therapy protocol. From a neurological standpoint patient cannot be totally weaned 3. Daily chest x-ray, ABGs and lab. 01/15/2017. 1. See today's note above. 2. Check recent sputum cultures which were obtained with fiberoptic bronchoscopy 3. Continue mechanical ventilation weaning protocol and physical therapy protocol. Patient remains nonresponsive and is not ready for extubation. She cannot protect her airways. 01/18/2017. 1. Daily chest x-ray ABGs and lab. #2. Check fiberoptic bronchoscopy results 3. Weaning and physical therapy protocol 4. See today's note above 01/19/2017. 1. See today's note above. 2. Fiberoptic bronchoscopy specimens negative so far. 3. Continue weaning and physical therapy protocols. Exam (Progress Note) - Constitutional Vitals: Period Temp Pulse Resp BP Sys/Gonzalez Pulse Ox Last 24 Hr 97.6 F-98.8 F 51-75 12-100 70-121/43-82 95-100 Results - Labs CBC & BMP: 01/19/17 03:40 01/19/17 03:40 Specialty Discharge - Follow Up or Referrals Follow up with: Eric Pritchett MD [Physician] - 01/28/17 10:00 am (APPT. WITH JANUARY 28 FOR LAB @ 10:00AM & 10:50 WITH )
--- NOTE | 2017-01-19 09:55 | Nephrology Progress Note ---
Nephrology - PN: Subj Interval history: Pt remains intubated and sedated. Off dopamine. S/p arrest with reintubation. No noted sz activity. On vent weaning protocol. Exam (PN)-Nephrology - Vital Signs Vital signs: Period Temp Pulse Resp BP Sys/Gonzalez Pulse Ox Last 24 Hr 97.6 F-98.8 F 51-75 12-33 70-117/43-71 95-100 - General Appearance General appearance: obese, chronically ill, sedated on ventilator, intubated EENT: ATNC, PERRL, mucous membranes dry Neck: no JVD, no thyromegaly Respiratory: no kyphosis, no scoliosis Cardiology: no murmurs, no rub, no edema Gastrointestinal: normoactive bowel sounds, no tenderness Integumentary: no rash, warm and dry Neurologic: obtunded Musculoskeletal: no deformities, no erythema - Lab 01/19/17 03:40 01/19/17 03:40 Most recent lab results ABG pH 7.377 (7.35-7.45) 01/19/17 03:15 ABG pCO2 30.1 MM HG (35-48) L 01/19/17 03:15 ABG pO2 134.6 MM HG (80-95) H 01/19/17 03:15 ABG HCO3 17.3 MMOL/L (20-26) L 01/19/17 03:15 ABG O2 Saturation 98.7 % (95-100) 01/19/17 03:15 Calcium 8.8 MG/DL (8.5-10.1) 01/19/17 03:40 Phosphorus 4.3 MG/DL (2.5-4.9) 01/19/17 03:40 Magnesium 2.5 MG/DL (1.8-2.4) H 01/18/17 03:32 Assessment and Plan (1) ESRD on dialysis Problem details: Routine HD today. Status: Chronic Assessment and plan: Appears euvolemic to slightly up. UF only 2L as tolerated by hemodynamics. Current Visit: No Specialty Discharge - Follow Up or Referrals Follow up with: Eric Pritchett MD [Physician] - 01/28/17 10:00 am (APPT. WITH JANUARY 28 FOR LAB @ 10:00AM & 10:50 WITH )
[2017-01-19] MEDS: cefTAZidime 500 MG in SODIUM CHLORIDE 0.9% 100 ML IV SCH (11:00)
--- NOTE | 2017-01-19 11:14 | Discharge Summary ---
Hospital Course - Hospital Course Hospital Course: Ms. Albert is a 61 year old black female with a history of GERD, CHF, A. fib, hypertension, diabetes, CEE, COPD, pneumonia, sepsis, end-stage renal disease on dialysis. Ms. Albert is well-known to our service. She has been admitted several times over the last few months. She was recently discharged on 12/28 after being admitted for A. fib with RVR. Today the patient presents to the ED with complaints of chest pain. On evaluation she was also found to be bradycardic. Patient stated that yesterday she began to experience midsternal chest pain that radiated to the left side. Patient also reported a rapid heartbeat. Patient states she only felt better after sitting in a chair. Patient reported nausea and vomiting with mild dizziness but denies shortness of breath, headache, fever, chills, diaphoresis, pain, back pain, abdominal pain , or neck pain. Patient stated that at the time of the episode she had just taken her medication. Patient takes metoprolol, amiodarone, and diltiazem among other medications. Patient normally dialyzes on Wednesday, , and Wednesday. Patient denies any other complaints in the ED at this time. During the course of the hospitalization, the patient began to have seizures and required intubation. She was felt to be in status epilepticus and was seen in consultation by neurology. She had respiratory failure and required intubation and was seen by pulmonary. She is followed by nephrology for her end -stage renal disease on dialysis 3 times per week. During the course of the hospital stay her status epilepticus resolved with initiation of antiseizure medications. She has remained in respiratory failure requiring mechanical ventilation. Her mental status has improved and she is responding to commands. She did suffer a cardiac arrest after her endotracheal tube was dislodged and required reintubation. She does not appear to have any neurological deficits from that episode. She is being treated for aspiration pneumonia with Cleocin and Fortaz. She is on stage V of the weaning protocols and is being followed by Dr. Lima. She has had no further seizure episodes. She is tolerating dialysis without difficulties. She did require the initiation of pressors due to some bradycardia related to her Cardizem, metoprolol, amiodarone that she was taking prior to admission. Since then the beta adolfo has been stopped and the calcium channel adolfo is now divided into 90 mg 3 times daily as opposed to 300 mg extended release tablet. - Time spent with patient Time with patient DS: Greater than 30 minutes (Total discharge time for this patient, including [id number] time, clinical documentation, medication reconciliation, and discharge planning was 43 minutes.) Diagnosis - Discharge Diagnosis (1) Anemia Status: Chronic (2) End stage renal disease on dialysis Status: Chronic (3) Seizure Status: Resolved (4) Aspiration pneumonia due to food (regurgitated) Status: Acute (5) Respiratory failure Status: Acute Specialty Discharge - Follow Up or Referrals Follow up with: Eric Pritchett MD [Physician] - 01/28/17 10:00 am (APPT. WITH JANUARY 28 FOR LAB @ 10:00AM & 10:50 WITH ) Discharge Plan - Discharge Data Disposition: Disch/Xfer to [facility] Condition at Discharge: Stable Discharge Diet: other (tube feeds) Hygiene: no restrictions - Discharge Medications New Albuterol/Ipratropium Neb [Duoneb] 3 ml RESP TX RT Q6H Clindamycin Inj [Cleocin Inj] 300 mg IV Q8H Famotidine Inj [Pepcid Inj] 20 mg IV Q24H vial Gabapentin Liquid [Neurontin Liquid] 200 mg PO BEDTIME bottle Glucagon 1 mg IM PRN PRN vial PRN Reason: Hypoglycemia w/o IV access Heparin Lock Flush 50 units IV Q12H syringe Insulin Lispro [HumaLOG] See Protocol SUBCUT Q6HR unit levETIRAcetam INJ [Keppra Inj] 500 mg IV Q8H vial Lidocaine 5% Patch [Lidoderm 5% Patch] 1 patch TRANSDERM DAILY patch Metoclopramide Inj [Reglan Inj] 5 mg IV Q6HR vial Ondansetron Inj [Zofran Inj] 4 mg IV Q4H PRN vial PRN Reason: Nausea Phenytoin Inj [Dilantin Inj] 100 mg IV Q8H vial Acetaminophen Tab [Tylenol Tab] 650 mg PO Q4H PRN tablet PRN Reason: Fever, Headache, Mild Pain cefTAZidime [Fortaz] 500 mg IV Q12H vial Diltiazem Tab [Cardizem Tab] 90 mg PO TID tablet Docusate Sodium Cap [Colace Cap] 100 mg PO BID PRN capsule PRN Reason: Constipation Epoetin Jeffrey [Epogen] 10,000 unit IV WITH DIALYSIS PRN vial PRN Reason: Dialysis Gabapentin Liquid [Neurontin Liquid] 100 mg NG QAM bottle Heparin Inj 2,000 unit IV .DIALYSIS PRN vial PRN Reason: DIALYSIS Heparin Lock Flush 50 units IV PRN PRN syringe PRN Reason: central line lock LORazepam INJ [Ativan Inj] 1 mg IV Q6H PRN vial PRN Reason: seizures Continue Multivitamin [One Daily] 1 tablet PO QAM Atorvastatin [Lipitor] 40 mg PO BEDTIME Montelukast Tab [Singulair Tab] 10 mg PO BEDTIME Insulin Detemir [Levemir FlexPen] 8 unit SUBCUT 1900 Calcium Acetate 667 mg PO TID W/MEALS Ipratropium/Albuterol Sulfate [Iprat-Albut 0.5-3(2.5) mg/3 ml] 3 ml PO QID PRN PRN Reason: Shortness Of Breath Aspirin EC Tab 162.5 mg PO QAM Amiodarone Tab [Cordarone Tab] 400 mg PO BID #90 tablet Methocarbamol 750 mg PO BID PRN PRN Reason: MUSCLE SPASMS Fluticasone/Salmeterol 250-50 [Advair 250-50] 1 puff INH QAM Discontinued dilTIAZem HCl [Diltiazem 24Hr ER] 300 mg PO QAM Gabapentin 300 mg PO BEDTIME Fluticasone Propionate [Fluticasone 50 mcg Nasal [place]] 1 spray BOTH NARES BID PRN PRN Reason: Allergy Symptoms Magnesium Oxide 400 mg PO QAM Pantoprazole Sodium 40 mg PO QAM raNITIdine HCl [Ranitidine HCl] 150 mg PO BID Furosemide 160 mg PO BID hydrALAZINE TAB [Apresoline Tab] 100 mg PO TID Gabapentin 100 mg PO QAM Metoprolol Tartrate 50 mg PO BID - Follow Up or Referral Follow Up: Eric Pritchett MD [Physician] - 01/28/17 10:00 am (APPT. WITH JANUARY 28 FOR LAB @ 10:00AM & 10:50 WITH ) - Forms/Instructions Exam - Constitutional Vitals: Period Temp Pulse Resp BP Sys/Gonzalez Pulse Ox Last 24 Hr 97.6 F-98.8 F 51-75 12-33 70-117/41-66 95-100 Discharge Results Procedures and tests throughout hospitalization: Pending Orders 01/12/17 Fungal Culture w/ Prep Stat 01/13/17 04:38 MARTIR CSF([facility]) IN AM 01/13/17 09:00 Cytology Request Stat 01/13/17 10:03 Fungal Culture w/ Prep Routine 01/13/17 14:30 AFB Culture/Smears Stat Fungal Culture w/ Prep Stat Viral Culture, Non-Respiratory Stat 01/18/17 Bronchoalveolar Lavage C & GS Routine Fungal Culture w/ Prep Routine MRSA Surveillence, Inf Control Routine 01/18/17 09:59 Levetiracetam (Keppra) Routine 01/20/17 04:00 XR chest 1V portable IN AM ABG [Arterial Blood Gas] IN AM Labs on day of discharge: Labs from last 24 hours 01/19/17 01/19/17 01/19/17 05:35 03:40 03:40 WBC RBC Hgb Hct MCV MCH MCHC RDW Plt Count MPV Neut % (Auto) Lymph % (Auto) [place] % (Auto) Eos % (Auto) Baso % (Auto) Neut # (Auto) Lymph # (Auto) [place] # (Auto) Eos # (Auto) Baso # (Auto) Immature Gran % Nucleated RBC % Immature Gran # Nucleated RBCs # ABG pH ABG pCO2 ABG pO2 ABG HCO3 ABG Total CO2 ABG O2 Saturation ABG Base Excess FiO2 Sodium 141 Potassium 4.2 Chloride 108 H Carbon Dioxide 21 Anion Gap 16.2 H BUN 49 H Creatinine 5.80 H GFR Calculation 8 BUN/Creatinine Ratio 8.00 Glucose 184 H POC Glucose 177 H Calculated Osmolality 298.3 Calcium 8.8 Phosphorus 4.3 Total Bilirubin 0.50 AST 81 H ALT 36 Alkaline Phosphatase 286 H Total Protein 6.3 L Albumin 2.1 L Globulin 4.2 H Albumin/Globulin Ratio 0.5 L Phenytoin 01/19/17 01/19/17 01/18/17 03:40 03:15 23:23 WBC 13.6 H RBC 3.27 L Hgb 9.3 L Hct 28.7 L MCV 87.8 MCH 28 MCHC 32.4 RDW 19.9 H Plt Count 247 MPV 9.9 Neut % (Auto) 75.0 H Lymph % (Auto) 8.7 L [place] % (Auto) 10.7 Eos % (Auto) 3.8 Baso % (Auto) 0.6 Neut # (Auto) 10.2 H Lymph # (Auto) 1.2 L [place] # (Auto) 1.5 H Eos # (Auto) 0.5 Baso # (Auto) 0.1 Immature Gran % 1.2 Nucleated RBC % 0.4 Immature Gran # 0.16 Nucleated RBCs # 0.05 ABG pH 7.377 ABG pCO2 30.1 L ABG pO2 134.6 H ABG HCO3 17.3 L ABG Total CO2 18.2 L ABG O2 Saturation 98.7 ABG Base Excess -6.9 L FiO2 50.00 Sodium Potassium Chloride Carbon Dioxide Anion Gap BUN Creatinine GFR Calculation BUN/Creatinine Ratio Glucose POC Glucose 141 H Calculated Osmolality Calcium Phosphorus Total Bilirubin AST ALT Alkaline Phosphatase Total Protein Albumin Globulin Albumin/Globulin Ratio Phenytoin 01/18/17 01/18/17 01/18/17 18:17 12:02 09:59 WBC RBC Hgb Hct MCV MCH MCHC RDW Plt Count MPV Neut % (Auto) Lymph % (Auto) [place] % (Auto) Eos % (Auto) Baso % (Auto) Neut # (Auto) Lymph # (Auto) [place] # (Auto) Eos # (Auto) Baso # (Auto) Immature Gran % Nucleated RBC % Immature Gran # Nucleated RBCs # ABG pH ABG pCO2 ABG pO2 ABG HCO3 ABG Total CO2 ABG O2 Saturation ABG Base Excess FiO2 Sodium Potassium Chloride Carbon Dioxide Anion Gap BUN Creatinine GFR Calculation BUN/Creatinine Ratio Glucose POC Glucose 187 H 178 H Calculated Osmolality Calcium Phosphorus Total Bilirubin AST ALT Alkaline Phosphatase Total Protein Albumin Globulin Albumin/Globulin Ratio Phenytoin 7.5 L Preliminary micro results at discharge 01/18/17 Unknown Bronchoalveolar Lavage Culture - Preliminary Bronchial Ilya Lavage Normal Jennifer at 24 hours 01/13/17 14:30 Mycobacterial Culture - Preliminary Cerebral Spinal Fluid No AFB isolated at 1 week DS: Provider Date of admission: 01/09/17 06:58 Primary care physician: . No PCP Attending physician on admission: Dionisio Scott MD Consults: 01/09/17 08:22 Consult to Physician [CONS] Routine Comment: Consulting Provider: Yusuf Stuart Jr. Person Notified: DR. TOPETE Date Notified: 01/09/17 Time Notified: 09:50 Consult Notification Comment: NOTIFIED MOOKIE AT [facility] OF CONSULT AT 0920. NO RESPONSE FROM [facility]. DR. YOSELYN TIJERINA DIRECT AND NOTIFIED OF CONSULT AT 0950 01/09/17 09:08 Consult to Dietitian [CONS] Routine Reason for Dietitian: Other Consult Comment: ADMISSION ASSESMENT 01/09/17 09:11 Consult to Physician [CONS] Routine Comment: Consulting Provider: Kenyon Arrington When should Consulting Provider be notified: Now Consult to Specialist Group: Cardiology Person Notified: RANDI Date Notified: 01/09/17 Time Notified: 09:15 Consult Notification Comment: CIS TO NOTIFY MD 01/10/17 09:45 Consult to Physician [CONS] Routine Comment: Please assist with pain control Consulting Provider: Shasta Orta Person Notified: DR. ORTA Date Notified: 01/10/17 Time Notified: 10:26 Consult Notification Comment: NOTIFIED AT 1026. INSTRUCTED TO VERIFY PT DID NOT SEE ANYONE AT [facility]. PT REPORTS LAST TIME SEEING PAIN DR WAS AT [facility] AND DID NOT SEE ANYONE AT [facility]. TRIED TO CALL DR ORTA BACK AT 1029 TO REPORT FINDINGS. NO ANSWER. WILL TRY AGAIN. SPOKE AGAIN WITH DR. ORTA AT 1034. DR. ORTA STATES HE WILL COME SEE PT TODAY. 01/10/17 15:49 Consult to Physician [CONS] Routine Comment: Consulting Provider: Guillermo Johnson When should Consulting Provider be notified: In am Person Notified: GAUDENCIO Date Notified: 01/11/17 Time Notified: 07:30 01/11/17 06:15 Consult to Physician [CONS] Routine Comment: seizures Consulting Provider: Iker Ricks Consult to Specialist Group: Neurology When should Consulting Provider be notified: In am 01/12/17 07:24 Consult to Physician [CONS] Routine Comment: general surgery for suture removal from AVF Consulting Provider: Henry Whitten Consulting Provider Notified: Yes Consult to Specialist Group: Surgery Person Notified: GIOVANNA Date Notified: 01/12/17 Time Notified: 08:50 01/13/17 08:45 Consult to Dietitian [CONS] Routine Reason for Dietitian: TF-Initiate/Manage 01/17/17 08:57 Consult to Physical Therapy [CONS] Routine Reason for Physical Therapy: Evaluate and Treat Consult Comment: per Early Progressive [facility]ilt[facility] Protocol 01/18/17 15:50 Consult to Case Mgmt/Social Srvs [CONS] Routine Reason for Case Mgmt/Social Srvs: LTAC Discharging clinician: Felicia Dan MD Expected date of discharge: 01/19/17
[2017-01-19] MEDS: DESITIN 4OZ/NYSTATIN 15 GRAM MIXTURE PASTE TOP SCH (11:15)
[2017-01-19 15:50] VITALS: BP 127/78
--- NOTE | 2017-01-21 11:28 | Physician Query Form ---
CLICK EDIT DOCUMENT TO SELECT QUERY ANSWER --> OK --> SIGN PROVIDERS: Make your selection(s) from the choices in EACH section by typing an "x" and enter comments in the comment section. Please use your independent medical judgment in providing your response. This request does not imply that any particular answer is desired or expected. CLINICAL INDICATORS: (Providers should not edit this section) The medical record indicates that the patient was admitted with chest pain, while in the ER had some bradycardia with rates as low as 35#, per discharge summary " On evaluation she was also found to be bradycardic" AND later had some rapid heartbeats. After necessary workup, could you please state the underlying cause of the patient's chest pain, if determined. CARDIAC ETIOLOGY: ( ) Angina associated with coronary artery disease ( ) Unstable Angina (X ) Bradycardia ( ) Demand ischemia without an acute NH ( ) Demand ischemia with a NSTEMI ( ) STEMI ( ) NSTEMI ( ) Cardiac Arrhythmia, please specify: ( ) Bobby's Syndrome ( ) Other etiology, please specify: ( ) Clinically unable to determine NON-CARDIAC ETIOLOGY: ( ) GERD ( ) Anterior chest wall pain ( ) Pleuritic pain ( ) Costochondritis ( ) Anxiety ( ) Musculoskeletal, please provide site: ( ) Troponin elevation due to non-cardiac cause, please specify: ( ) Other etiology, please specify: ( ) Clinically unable to determine COMMENTS: The patient had bradycardia related to calcium channel blockers, amiodarone, and beta blockers- listed as home meds. Once those medications were stopped she began having tachyarrhythmias and the medications were resumed. PLEASE ALSO DOCUMENT RESPONSE IN PROGRESS NOTES AND/OR DISCHARGE SUMMARY Use of terms such as suspected, likely, or probable (associated with a specific diagnosis that is being evaluated, monitored, or treated as if it exists) are acceptable and can be restated in the discharge summary if not ruled out. MTDD
== END 2017-01-19 15:30 | DRG 308 ==
LOC: N.ED 04:07 → N.EDINP 06:58 → SUATTDRO 06:58 → N.EDINP 07:50 → N.TELES 08:05 → N.ICU 01-11 10:20
PROVIDERS: ADMIT Internal Medicine; ATTEND Family Medicine

== ENCOUNTER 2017-02-20 09:07 | Inpatient (IN) ==
[2017-02-20] MEDS ORDERED: ALBUTEROL 2.5 MG/3 ML NEB RESP TX STA (09:18)
--- NOTE | 2017-02-20 09:28 | Emergency Department Note ---
Varinder Rahman Manpreet, am scribing for, and in the presence of, Jason Lopez MD 09: 25. Jessica Rahman James D, MD, personally performed the services described in this documentation, ascribed by Cesar Reeder in my presence, and it is both accurate and complete 927 . Arrival - Arrival Chief Complaint: Shortness of Breath Stated Complaint: SOB Mode of Arrival: Stretcher Limitations: No Limitations Source: Patient, RN Notes Reviewed - History of Present Illness HPI Narrative: Pt is a 61 y/o female, with PMHx of HTN, CHF, IDDM, NIDDM, asthma, bronchitis, and COPD, who is brought to the ED via EMS for CC of SOB since 4 days ago. Pt was at dialysis for 2 hours when she started wheezing and was transferred to the ED. Pt lives in a senior living but does not know which one. Pt also c/o having a sore throat but denies any cp or fever. Pt is on home O2 and is a former smoker. Pt has dialysis on Wednesday, and Wednesday. No other pains /complaints reported to ED. patient was recently admitted to the hospitalist service with acute respiratory failure and placed on mechanical ventilation. Cough is nonproductive. Patient is short of breath for 3-4 days. Onset (ago): hour(s) Consistency: constant Severity: moderate Severity scale (1-10): 3 Allergies/Adverse Reactions: Allergies Allergy/AdvReac Type Severity Reaction Status Date / Time codeine Allergy Severe Swelling Verified 04/12/16 19:35 of Lip/Tongue/Throat morphine AdvReac Intermediate Abdominal Verified 04/12/16 19:35 Pain olmesartan [From Benicar] AdvReac Unknown/Unable Verified 09/26/16 11:22 to obtain venlafaxine [From Effexor] AdvReac Abdominal Verified 09/26/16 11:22 Pain Home Medications: Home Medications Medication Instructions Recorded Confirmed Type Atorvastatin [Lipitor] 40 mg PO BEDTIME 12/10/15 01/09/17 History Multivitamin [One Daily] 1 tablet PO QAM 12/10/15 01/09/17 History Montelukast Tab [Singulair Tab] 10 mg PO BEDTIME 02/02/16 01/09/17 History Insulin Detemir [Levemir FlexPen] 8 unit SUBCUT 1900 02/24/16 01/09/17 History Calcium Acetate 667 mg PO TID W/MEALS 06/16/16 01/09/17 History Ipratropium/Albuterol Sulfate 3 ml PO QID PRN 06/16/16 01/09/17 History [Iprat-Albut 0.5-3(2.5) mg/3 ml] Methocarbamol 750 mg PO BID PRN 09/26/16 01/09/17 History Fluticasone/Salmeterol 250-50 1 puff INH QAM 10/03/16 01/09/17 History [Advair 250-50] Aspirin EC Tab 162.5 mg PO QAM 11/12/16 01/09/17 History Amiodarone Tab [Cordarone Tab] 400 mg PO BID #90 tablet 12/28/16 01/09/17 Rx Acetaminophen Tab [Tylenol Tab] 650 mg PO Q4H PRN tablet 01/19/17 Rx Albuterol/Ipratropium Neb [Duoneb] 3 ml RESP TX RT Q6H 01/19/17 Rx Clindamycin Inj [Cleocin Inj] 300 mg IV Q8H 01/19/17 Rx Diltiazem Tab [Cardizem Tab] 90 mg PO TID tablet 01/19/17 Rx Docusate Sodium Cap [Colace Cap] 100 mg PO BID PRN capsule 01/19/17 Rx Epoetin Jeffrey [Epogen] 10,000 unit IV WITH DIALYSIS PRN 01/19/17 Rx vial Famotidine Inj [Pepcid Inj] 20 mg IV Q24H vial 01/19/17 Rx Gabapentin Liquid [Neurontin 100 mg NG QAM bottle 01/19/17 Rx Liquid] Gabapentin Liquid [Neurontin 200 mg PO BEDTIME bottle 01/19/17 Rx Liquid] Glucagon 1 mg IM PRN PRN vial 01/19/17 Rx Heparin Inj 2,000 unit IV .DIALYSIS PRN vial 01/19/17 Rx Heparin Lock Flush 50 units IV PRN PRN syringe 01/19/17 Rx Heparin Lock Flush 50 units IV Q12H syringe 01/19/17 Rx Insulin Lispro [HumaLOG] See Protocol SUBCUT Q6HR unit 01/19/17 Rx LORazepam INJ [Ativan Inj] 1 mg IV Q6H PRN vial 01/19/17 Rx Lidocaine 5% Patch [Lidoderm 5% 1 patch TRANSDERM DAILY patch 01/19/17 Rx Patch] Metoclopramide Inj [Reglan Inj] 5 mg IV Q6HR vial 01/19/17 Rx Ondansetron Inj [Zofran Inj] 4 mg IV Q4H PRN vial 01/19/17 Rx Phenytoin Inj [Dilantin Inj] 100 mg IV Q8H vial 01/19/17 Rx cefTAZidime [Fortaz] 500 mg IV Q12H vial 01/19/17 Rx levETIRAcetam INJ [Keppra Inj] 500 mg IV Q8H vial 01/19/17 Rx Review of System - Review of System 12 point system: reviewed and no additional remarkable complaints except as stated - Review of System Constitutional: Absent: chills, diaphoresis, fever, weakness Head/Ears/Nose/Throat: Present: sore throat Respiratory: Present: respiratory distress. Absent: cough Cardiovascular: Absent: chest pain, dyspnea on exertion Gastrointestinal: Absent: abdominal pain, nausea, vomiting Genitourinary female: Absent: dysuria Neurological: Absent: headache Medical,Surgical,& Family Hx - Medical History Cardio: History of: Cardiac Dysrhythmia (A-FIB), CHF, Hypertension No history of: CAD, [place], Pacemaker, PVD Psychological: History of: Anxiety Disorders, Depression Neurology: History of: Migraine No history of: Seizures, TIA HEENT: History of: Eye Problem (GLASSES/CATARCTS), HEENT Problems (SINUSITIS/ ALLERGIES) Endocrine: History of: Diabetes Mellitus (IDDM), Diabetes Mellitus (NIDDM), Dyslipidemia Respiratory: History of: Asthma, Bronchitis, COPD, Obstructive Sleep Apnea ( doesnt wear cpap), Respiratory Problems (DR. SALAZAR AT [place]) No history of: Pulmonary Embolism Renal: History of: Dialysis (Tues, Th, Sat), Renal Failure, Renal Problems ( DR. TOPETE CHRON[facility] RENAL INSUFFICIENCY) Gastrointestinal: History of: GERD No history of: Hepatitis Musculoskeletal: History of: Back/Neck Problems Hematology: History of: Anemia No history of: Blood Transfusion Reaction Other: No history of: Anesthesia Reactions, Cancer - Surgical History Cardiac Surgeries: Patient Denies: Vascular Access Devices HEENT Surgeries: Surgical HX of: Eye Surgery (FOR CATARACT LT 03/05/15) Reproductive Surgeries: Surgical HX of;: Section (X1), Hysterectomy ( WITH BSO), Tubal Ligation Orthopedic Surgeries: Surgical HX of;: Orthopedic Surgery (RIGHT KNEE SURG), Spinal Surgery ( BACK SURGERY) - Family History Family History: Reports;: Family Diabetes (MOTHER () and brother), Family Heart Disease (GRANDPARENTS/PARENTS), Family Hypertension (PARENTS), Family Stroke (sister) - Social History Smoking Status: Former smoker Exam Vital Signs: Vital Signs Temperature 99.7 F H 02/20/17 09:15 Pulse Rate 104 H 02/20/17 09:38 Respiratory Rate 18 02/20/17 09:38 Blood Pressure 125/88 02/20/17 09:30 O2 Sat by Pulse Oximetry 98 02/20/17 09:30 GENERAL: This is a chronically ill-appearing black female in no apparent distress. VITAL SIGNS: Reviewed HEENT: Head is atraumatic and normocephalic. Pupils are equal round react to light. Extraocular movements are intact. There are white plaques present on the soft palate. NECK: Neck is soft and supple without tenderness. There are no masses. There is no lymphadenopathy. LUNGS: Minimal inspiratory and expiratory wheezes present on the right. Chest rises symmetrically. There is no chest wall tenderness. Some stridor is present. CV: Heart is rapid rate and rhythm without murmurs rubs or gallops. ABDOMEN: Abdomen is soft, nontender to palpation. There are no abdominal abnormal masses palpated. There is no organomegaly. Bowel sounds are present and active. SKIN: Skin is warm and dry. No rash. EXTREMITIES: Patient has full range of motion without tenderness. There is no pedal edema. NEUROLOGIC: Awake alert and oriented 4. Cranial nerves II through XII are grossly intact. Motor is 5 over 5 in all extremities bilaterally. Course - Consultations Consultation #1: Discussed with Dr. Justice. He saw the patient in the emergency department. Time: 10:28 Consultation #2: Discussed with hospitalist. Patient will be seen in the emergency department. Results - Labs CBC & BMP: 02/20/17 09:39 02/20/17 09:39 Lab Results: I have reviewed the patients labs - EKG EKG results: interpreted by ERMD - Impressions EKG: Sinus tachycardia with a rate of 101, nonspecific ST-T wave changes, normal axis. - Diagnostic Findings Procedure: Chest x-ray: image reviewed by me (Increased pulmonary markings bilaterally. Dialysis catheter is present with the tip in the superior vena cava.) Disposition Clinical Impression: Dyspnea, End stage renal disease on dialysis, Diabetes mellitus, Paroxysmal atrial fibrillation, Recent acute respiratory failure, Seizure disorder, Stomatitis monilial Case discussed with: patient Disposition: Still a Patient Condition: Stable
[2017-02-20 10:00] LABS: Basophils % 0.2 % (0.0-0.8); Eosinophils # 0.5 10*3/uL (0.0-0.87); Eosinophils % 3.8 % (0.00-10.9); Hematocrit 27.4 VOL% (35.7-47.0); Hemoglobin 9.1 GM/DL (12.0-16.0); Immature Granulocytes % 1.1 %; Immature Granulocytes Absolute 0.15 #; Lymphocytes # 1.3 10*3/uL (1.4-4.0); Lymphocytes % 9.7 % (21.3-54.2); Mean Corpuscular HGB Conc 33.2 GM/DL (32-36); Mean Corpuscular Hemoglobin 30 PG (27-34); Mean Corpuscular Volume 90.7 FL (87-102); Mean Platelet Volume 10.8 FL (9.6-12.0); Monocytes # 1.5 10*3/uL (0.11-0.8); Monocytes % 11.6 % (1.7-12.7); Neutrophils # 9.8 10*3/uL (1.4-7.4); Neutrophils % 73.6 % (38.7-73.9); Platelet Count 147 T/CUMM (130-400); Red Blood Count 3.02 MC/CUMM (3.8-5.5); Red Cell Distribution Width 18.5 % (9.3-17.3); White Blood Count 13.3 T/CUMM (4-12)
[2017-02-20 10:16] LABS: INR 1.2; PT Patient Result 12.8 SECS
[2017-02-20 10:17] LABS: Albumin 3.3 G/DL (3.4-5.0); Bilirubin,Total 0.5 MG/DL (0.2-1.0); Calcium 8.7 MG/DL (8.5-10.1); Osmolality,Calculated 276.1 MOS/KG (273-304); Potassium 3.6 MMOL/L (3.5-5.1); Total Protein 7.6 G/DL (6.4-8.3)
[2017-02-20] MEDS ORDERED: methylPREDNISolone SOD SUC 125 MG/2 ML VIAL IV STA (10:22)
[2017-02-20] MEDS ORDERED: FLUCONAZOLE 100 MG TABLET PO STA (10:22)
[2017-02-20 10:29] LABS: Partial Thromboplastin Time 96.5 SECS (0-40)
--- NOTE | 2017-02-20 10:33 | XRay Report ---
XR chest 1V portable Indication: Shortness of breath Comparison: 15 February 2017 Findings: The heart and mediastinum are stable in size and configuration. Right internal jugular catheter is unchanged in position. The pulmonary vascularity is prominent but similar to previous. There are small amount of increased left midlung density. No other lung infiltrates, effusions, pneumothorax or other abnormality is demonstrated. Impression: Small amount of increased left midlung density, could indicate pneumonia. PROCEDURE INTERPRETED AT [facility] DEPARTMENT OF RADIOLOGY Final Report Signed by: Dr. Kyle Humphreys
[2017-02-20 10:41] LABS: ABG Base Excess -0.4 MMOL/L (-2.5-2.5); ABG HCO3 24.1 MMOL/L (20-26); ABG PCO2 48.1 MM HG (35-48); ABG PH 7.336 (7.35-7.45); Allen Test Positive
[2017-02-20] MEDS ORDERED: FLUCONAZOLE 100 MG TABLET ONE (10:48)
[2017-02-20] MEDS ORDERED: methylPREDNISolone SOD SUC 125 MG/2 ML VIAL ONE (10:48)
--- NOTE | 2017-02-20 11:40 | Nephrology Consult Note ---
History of Present Illness Chief complaint: Admitted for SOB, referred for ESRD on CHD History of present illness: Ms. Albert is a 61 year old female with ESRD secondary to presumed diabetic nephropathy, on CHD TTSa via RIJ tunneled HD catheter at [place] [facility]. EDW 66kg. She requested to be taken off dialysis after two hrs today. She had already been ultrafiltered to her dry weight. Interviewed and examined in ED. Pt c/o sore throat and has white plaques on posterior pharynx and inspiratory stidor. CXR unimpressive for CHF. Labs reviewed. SaO2 100% on 2L via nc with pO2 118. pCO2 48, pH 7.33. K 3.6, WBC 13k, Hgb 9. Home Medications Medication Instructions Recorded Confirmed Type Atorvastatin [Lipitor] 40 mg PO BEDTIME 12/10/15 01/09/17 History Multivitamin [One Daily] 1 tablet PO QAM 12/10/15 01/09/17 History Montelukast Tab [Singulair Tab] 10 mg PO BEDTIME 02/02/16 01/09/17 History Insulin Detemir [Levemir FlexPen] 8 unit SUBCUT 1900 02/24/16 01/09/17 History Calcium Acetate 667 mg PO TID W/MEALS 06/16/16 01/09/17 History Ipratropium/Albuterol Sulfate 3 ml PO QID PRN 06/16/16 01/09/17 History [Iprat-Albut 0.5-3(2.5) mg/3 ml] Methocarbamol 750 mg PO BID PRN 09/26/16 01/09/17 History Fluticasone/Salmeterol 250-50 1 puff INH QAM 10/03/16 01/09/17 History [Advair 250-50] Aspirin EC Tab 162.5 mg PO QAM 11/12/16 01/09/17 History Amiodarone Tab [Cordarone Tab] 400 mg PO BID #90 tablet 12/28/16 01/09/17 Rx Acetaminophen Tab [Tylenol Tab] 650 mg PO Q4H PRN tablet 01/19/17 Rx Albuterol/Ipratropium Neb [Duoneb] 3 ml RESP TX RT Q6H 01/19/17 Rx Clindamycin Inj [Cleocin Inj] 300 mg IV Q8H 01/19/17 Rx Diltiazem Tab [Cardizem Tab] 90 mg PO TID tablet 01/19/17 Rx Docusate Sodium Cap [Colace Cap] 100 mg PO BID PRN capsule 01/19/17 Rx Epoetin Jeffrey [Epogen] 10,000 unit IV WITH DIALYSIS PRN 01/19/17 Rx vial Famotidine Inj [Pepcid Inj] 20 mg IV Q24H vial 01/19/17 Rx Gabapentin Liquid [Neurontin 100 mg NG QAM bottle 01/19/17 Rx Liquid] Gabapentin Liquid [Neurontin 200 mg PO BEDTIME bottle 01/19/17 Rx Liquid] Glucagon 1 mg IM PRN PRN vial 01/19/17 Rx Heparin Inj 2,000 unit IV .DIALYSIS PRN vial 01/19/17 Rx Heparin Lock Flush 50 units IV PRN PRN syringe 01/19/17 Rx Heparin Lock Flush 50 units IV Q12H syringe 01/19/17 Rx Insulin Lispro [HumaLOG] See Protocol SUBCUT Q6HR unit 01/19/17 Rx LORazepam INJ [Ativan Inj] 1 mg IV Q6H PRN vial 01/19/17 Rx Lidocaine 5% Patch [Lidoderm 5% 1 patch TRANSDERM DAILY patch 01/19/17 Rx Patch] Metoclopramide Inj [Reglan Inj] 5 mg IV Q6HR vial 01/19/17 Rx Ondansetron Inj [Zofran Inj] 4 mg IV Q4H PRN vial 01/19/17 Rx Phenytoin Inj [Dilantin Inj] 100 mg IV Q8H vial 01/19/17 Rx cefTAZidime [Fortaz] 500 mg IV Q12H vial 01/19/17 Rx levETIRAcetam INJ [Keppra Inj] 500 mg IV Q8H vial 01/19/17 Rx Allergies Allergy/AdvReac Type Severity Reaction Status Date / Time codeine Allergy Severe Swelling Verified 04/12/16 19:35 of Lip/Tongue/Throat morphine AdvReac Intermediate Abdominal Verified 04/12/16 19:35 Pain olmesartan [From Benicar] AdvReac Unknown/Unable Verified 09/26/16 11:22 to obtain venlafaxine [From Effexor] AdvReac Abdominal Verified 09/26/16 11:22 Pain Medical,Surgical,& Family Hx - Medical History Cardio: History of: Cardiac Dysrhythmia (A-FIB), CHF, Hypertension No history of: CAD, [place], Pacemaker, PVD Psychological: History of: Anxiety Disorders, Depression Neurology: History of: Migraine No history of: Seizures, TIA HEENT: History of: Eye Problem (GLASSES/CATARCTS), HEENT Problems (SINUSITIS/ ALLERGIES) Endocrine: History of: Diabetes Mellitus (IDDM), Diabetes Mellitus (NIDDM), Dyslipidemia Respiratory: History of: Asthma, Bronchitis, COPD, Obstructive Sleep Apnea ( doesnt wear cpap), Respiratory Problems (DR. SALAZAR AT [place]) No history of: Pulmonary Embolism Renal: History of: Dialysis (Tues, Th, Sat), Renal Failure, Renal Problems ( [facility] TOP[facility]) Gastrointestinal: History of: GERD No history of: Hepatitis Musculoskeletal: History of: Back/Neck Problems Hematology: History of: Anemia No history of: Blood Transfusion Reaction Other: No history of: Anesthesia Reactions, Cancer - Surgical History Cardiac Surgeries: Patient Denies: Vascular Access Devices HEENT Surgeries: Surgical HX of: Eye Surgery (FOR CATARACT LT 03/05/15) Reproductive Surgeries: Surgical HX of;: Section (X1), Hysterectomy ( WITH BSO), Tubal Ligation Orthopedic Surgeries: Surgical HX of;: Orthopedic Surgery (RIGHT KNEE SURG), Spinal Surgery ( BACK SURGERY) - Family History Family History: Reports;: Family Diabetes (MOTHER () and brother), Family Heart Disease (GRANDPARENTS/PARENTS), Family Hypertension (PARENTS), Family Stroke (sister) - Social History Smoking Status: Former smoker Frequency of Alcohol Use: None Type of Drug Use: None Exam - Vital Signs Vital signs: Period Temp Pulse Resp BP Sys/Gonzalez Pulse Ox Last 24 Hr 99.7 F-99.7 F 93-113 18-22 100-125/69-88 86-100 - General Appearance General appearance: well-developed, chronically ill EENT: ATNC, PERRL, mucous membranes moist (white plaques on posterior pharynx, thrush appearance), hearing intact, vision intact Neck: no JVD, no thyromegaly Respiratory: no kyphosis, clear (inspiratory upper airway stridor) Cardiology: no murmurs, no rub Gastrointestinal: normoactive bowel sounds, no tenderness Integumentary: no rash, warm and dry Neurologic: no focal deficit, no asterixis, alert and oriented x3 Musculoskeletal: no deformities, no erythema Psychiatric: mood/affect appropriate, cooperative Results - Labs CBC & BMP: 02/20/17 09:39 02/20/17 09:39 Assessment and Plan (1) Chronic atrial fibrillation Status: Chronic Current Visit: No (2) COPD (chronic obstructive pulmonary disease) Status: Chronic Current Visit: No Qualifiers: (3) Dyspnea Problem details: inspiratory stridor and thrush, not overtly volume overloaded Status: Resolved Assessment and plan: pulmonary consult, agree with ICU admission. Current Visit: No (4) ESRD on dialysis Problem details: No acute indication for HD Status: Chronic Assessment and plan: Fluid restrict to 1L/day. Strict renal diet (low K/PO4). Renally dose all meds for eGFR <10cc/min on dialysis. No need to avoid contrast if indicated. Current Visit: No
--- NOTE | 2017-02-20 11:41 | EKG Report ---
Stationary ECG Study [facility] ER Test Date: 02/20/2017 9:19:10 AM Pat Name: COMPA AMAYA Department: Room: 129 Gender: F [employer]: : [id number] Requested by: Jason Chakraborty Order Number: [id number] Reading MD: DILAN SINGER Intervals [place] Rate: 101 P: 87 [place]: 184 QRS: 24 QRSD: 84 T: 108 QT: 361 QTc: 419 Interpretive Statements SINUS TACHYCARDIA Electronically Signed On 02-22-17 18:07:21 CDT by DILAN SINGER [email or web address]
--- NOTE | 2017-02-20 11:50 | Hospitalist History & Physical ---
<Perla Marquez - Last Filed: 02/20/17 12:02> Assessment and Plan (1) Dyspnea Status: Acute Assessment and plan: The patient presented in mild respiratory distress and experiencing stridor at the time of ED presentation. Extended bronchodilator treatments were initiated and the patient's respiratory status improved mildly. We will start empiric antibiotic coverage, inhaled bronchodilators, and intravenous corticosteroids. We will monitor very closely. Current Visit: Yes (2) Acute exacerbation of chronic obstructive airways disease Status: Acute Assessment and plan: Chest x-ray suggested increased pulmonary markings bilaterally. We will treat as an acute exacerbation. We will start empiric antibiotic coverage, inhaled bronchodilators, and intravenous corticosteroids. Arterial blood gases suggested acute respiratory acidosis. CO2 was noted at 48.1; although this is not large impressive, we will monitor the patient very closely. The patient's respiratory status has declined very quickly and recent and previous hospitalizations requiring mechanical ventilation. She is not at that point now however we will monitor closely. We will recheck chest x-ray in a.m. a.m. recheck ABG in 6 hours. Current Visit: No (3) Chronic renal failure Status: Chronic Current Visit: No (4) Acute respiratory acidosis Status: Acute Assessment and plan: Arterial blood gas significant for acute respiratory acidosis. Which is largely secondary to hypoventilation. We will monitor. CO2 was noted at 48.1 which is not largely impressive however bears monitoring. We will recheck arterial blood gas in 6 hours. We will monitor patient very closely. Current Visit: Yes History of Present Illness Chief complaint: Shortness of breath History of present illness: This is a chronically ill 61-year-old female that presented to the ED at [facility] this morning for the evaluation of shortness of breath. Patient has a very complex and extensive medical history significant for: hypertension, obstructive sleep apnea, cataracts, anxiety, depression, atrial fibrillation, end-stage renal disease, gastroesophageal reflux disease, anemia, congestive heart failure, insulin-dependent diabetes mellitus, asthma, bronchitis, and chronic obstructive pulmonary disease. The patient has a surgical history of left cataract removal, vascular access creation, section, hysterectomy, tubal ligation, right knee surgery, spinal surgery. Patient reported the onset of the above symptoms 4 days prior to presentation. Apparently, the patient was at her normal hemodialysis treatment which she started wheezing was transferred to the emergency department. In addition, the patient reported sore throat however denied chest pain or fever. The patient currently resides at a long-term care facility and was subsequently transferred to [facility] for further evaluation. The patient was assessed at the time of ED presentation. The patient was noted to be in severe respiratory distress with stridor noted. Extended bronchodilator treatments were initiated per nebulizer. The patient's respiratory status improved greatly. Labs were obtained; complete blood count reported white blood cell count at 13.3, hemoglobin 9.1, hematocrit 27.4, and platelet count at 147. Coagulation panel reported INR at 1.2, PTT at 96.5, and PT 12.8. Arterial blood gas reported pH at 7.336, PCO2 48, PO2 118, and HCO3 24.1. Comprehensive metabolic profile reported chemistry 135, potassium 3.6, chloride 98, carbon dioxide 25, BUN 33, creatinine 3.70, glucose 95, calcium 8.7 , total bilirubin 0.50, AST 21, ALT 35, alkaline phosphatase 271, BNP 1179, and albumin 3.3. Chest x-ray reported a small amount of increased left midlung density which could possibly indicate pneumonia. EKG reported sinus tachycardia with nonspecific STT wave changes normal axis. After brief discussion with both Dr. Lopez and Dr. Chavez, the patient will be admitted to the hospitalist services for continuation of care. Due to the complexity and severity of the patient's current respiratory status, the patient will be placed in the critical care unit. A nephrology consultation has been requested to evaluate for immediate hemodialysis. Home medications have been reviewed and reconciled. CODE STATUS discussed, patient is a FULL CODE. Home Medications Medication Instructions Recorded Confirmed Type Atorvastatin [Lipitor] 40 mg PO BEDTIME 12/10/15 01/09/17 History Multivitamin [One Daily] 1 tablet PO QAM 12/10/15 01/09/17 History Montelukast Tab [Singulair Tab] 10 mg PO BEDTIME 02/02/16 01/09/17 History Insulin Detemir [Levemir FlexPen] 8 unit SUBCUT 1900 02/24/16 01/09/17 History Calcium Acetate 667 mg PO TID W/MEALS 06/16/16 01/09/17 History Ipratropium/Albuterol Sulfate 3 ml PO QID PRN 06/16/16 01/09/17 History [Iprat-Albut 0.5-3(2.5) mg/3 ml] Methocarbamol 750 mg PO BID PRN 09/26/16 01/09/17 History Fluticasone/Salmeterol 250-50 1 puff INH QAM 10/03/16 01/09/17 History [Advair 250-50] Aspirin EC Tab 162.5 mg PO QAM 11/12/16 01/09/17 History Amiodarone Tab [Cordarone Tab] 400 mg PO BID #90 tablet 12/28/16 01/09/17 Rx Acetaminophen Tab [Tylenol Tab] 650 mg PO Q4H PRN tablet 01/19/17 Rx Albuterol/Ipratropium Neb [Duoneb] 3 ml RESP TX RT Q6H 01/19/17 Rx Clindamycin Inj [Cleocin Inj] 300 mg IV Q8H 01/19/17 Rx Diltiazem Tab [Cardizem Tab] 90 mg PO TID tablet 01/19/17 Rx Docusate Sodium Cap [Colace Cap] 100 mg PO BID PRN capsule 01/19/17 Rx Epoetin Jeffrey [Epogen] 10,000 unit IV WITH DIALYSIS PRN 01/19/17 Rx vial Famotidine Inj [Pepcid Inj] 20 mg IV Q24H vial 01/19/17 Rx Gabapentin Liquid [Neurontin 100 mg NG QAM bottle 01/19/17 Rx Liquid] Gabapentin Liquid [Neurontin 200 mg PO BEDTIME bottle 01/19/17 Rx Liquid] Glucagon 1 mg IM PRN PRN vial 01/19/17 Rx Heparin Inj 2,000 unit IV .DIALYSIS PRN vial 01/19/17 Rx Heparin Lock Flush 50 units IV PRN PRN syringe 01/19/17 Rx Heparin Lock Flush 50 units IV Q12H syringe 01/19/17 Rx Insulin Lispro [HumaLOG] See Protocol SUBCUT Q6HR unit 01/19/17 Rx LORazepam INJ [Ativan Inj] 1 mg IV Q6H PRN vial 01/19/17 Rx Lidocaine 5% Patch [Lidoderm 5% 1 patch TRANSDERM DAILY patch 01/19/17 Rx Patch] Metoclopramide Inj [Reglan Inj] 5 mg IV Q6HR vial 01/19/17 Rx Ondansetron Inj [Zofran Inj] 4 mg IV Q4H PRN vial 01/19/17 Rx Phenytoin Inj [Dilantin Inj] 100 mg IV Q8H vial 01/19/17 Rx cefTAZidime [Fortaz] 500 mg IV Q12H vial 01/19/17 Rx levETIRAcetam INJ [Keppra Inj] 500 mg IV Q8H vial 01/19/17 Rx Allergies Allergy/AdvReac Type Severity Reaction Status Date / Time codeine Allergy Severe Swelling Verified 04/12/16 19:35 of Lip/Tongue/Throat morphine AdvReac Intermediate Abdominal Verified 04/12/16 19:35 Pain olmesartan [From Benicar] AdvReac Unknown/Unable Verified 09/26/16 11:22 to obtain venlafaxine [From Effexor] AdvReac Abdominal Verified 09/26/16 11:22 Pain Medical,Surgical,& Family Hx - Medical History Cardio: History of: Cardiac Dysrhythmia (A-FIB), CHF, Hypertension No history of: CAD, [place], Pacemaker, PVD Psychological: History of: Anxiety Disorders, Depression Neurology: History of: Migraine No history of: Seizures, TIA HEENT: History of: Eye Problem (GLASSES/CATARCTS), HEENT Problems (SINUSITIS/ ALLERGIES) Endocrine: History of: Diabetes Mellitus (IDDM), Diabetes Mellitus (NIDDM), Dyslipidemia Respiratory: History of: Asthma, Bronchitis, COPD, Obstructive Sleep Apnea ( doesnt wear cpap), Respiratory Problems (DR. SALAZAR AT [place]) No history of: Pulmonary Embolism Renal: History of: Dialysis (Tues, , Wed), Renal Failure, Renal Problems ( [facility] TOP[facility]SUFFICIENC[facility]) Gastrointestinal: History of: GERD No history of: Hepatitis Musculoskeletal: History of: Back/Neck Problems Hematology: History of: Anemia No history of: Blood Transfusion Reaction Other: No history of: Anesthesia Reactions, Cancer - Surgical History Cardiac Surgeries: Patient Denies: Vascular Access Devices HEENT Surgeries: Surgical HX of: Eye Surgery (FOR CATARACT LT 03/05/15) Reproductive Surgeries: Surgical HX of;: Section (X1), Hysterectomy ( WITH BSO), Tubal Ligation Orthopedic Surgeries: Surgical HX of;: Orthopedic Surgery (RIGHT KNEE SURG), Spinal Surgery ( BACK SURGERY) - Family History Family History: Reports;: Family Diabetes (MOTHER () and brother), Family Heart Disease (GRANDPARENTS/PARENTS), Family Hypertension (PARENTS), Family Stroke (sister) - Social History Smoking Status: Former smoker Frequency of Alcohol Use: None Type of Drug Use: None 12 point system: reviewed and no additional remarkable complaints except as stated Exam - Constitutional Vitals: Period Temp Pulse Resp BP Sys/Gonzalez Pulse Ox Last 24 Hr 97.4 F-99.7 F 91-113 16-22 100-135/67-88 86-100 General appearance: mild distress - Head Head exam: Present: normal inspection, normocephalic, atraumatic - Eye Eye exam: Present: EOMI Pupils: Present: JOSE. Absent: normal accommodation - ENT ENT exam: Present: normal exam, normal external ear exam, normal oropharynx - Neck Neck exam: Present: normal inspection. Absent: lymphadenopathy, meningismus, thyromegaly - Respiratory Respiratory exam: Present: accessory muscle use, stridor, wheezes - Cardiovascular Cardiovascular exam: Present: tachycardia. Absent: carotid bruit, diastolic murmur, gallop, JVD, rubs - GI/Abdominal GI/Abdominal exam: Present: normal bowel sounds. Absent: mass, tenderness, rebound, soft - Extremities Exam Extremities exam: Present: normal inspection, normal capillary refill, full ROM - Back Exam Back exam: Present: normal inspection - Neurological Exam Neurological exam: Present: alert, oriented X3, CN II-XII intact - Psychiatric Psychiatric exam: Present: normal affect, normal mood - Skin Skin exam: Present: normal color, warm, dry Results - Labs CBC & BMP: 02/20/17 09:39 02/20/17 09:39 Lab Results: I have reviewed the past 24 hour labs <Brianna Mishra - Last Filed: 02/20/17 16:48> History of Present Illness History of present illness: Ms. Albert is a 61 year old female with multiple medical issues presents with SOB and wheezing and a little bit of stridor. CXR showed a small amount of increased left mid lung density, could indicate pneumoniaPlan Patient was seen, and examined by me. Plan IV antibiotics IV steroids nebs treatment Pulm consult A1c level accuchecks keppra/phenytoin levels Hold bp meds for now. Follow cultures, continue current care Exam - Constitutional Vitals: Period Temp Pulse Resp BP Sys/Gonzalez Pulse Ox Last 24 Hr 97.4 F-99.7 F 91-113 15- 100-151/67-95 86-100 Results - Labs CBC & BMP: 02/20/17 09:39 02/20/17 09:39
[2017-02-20] MEDS: ALBUTEROL 2.5 MG/3 ML NEB RESP TX PRN (11:57)
[2017-02-20] MEDS ORDERED: DOCUSATE SODIUM 100 MG CAPSULE PO PRN (12:55)
[2017-02-20] MEDS ORDERED: METHOCARBAMOL 750 MG TABLET PO PRN (12:55)
[2017-02-20] MEDS ORDERED: EPOETIN ALFA 10,000 UNIT/1 ML VIAL IV PRN (12:55)
[2017-02-20] MEDS: PANTOPRAZOLE 40 MG VIAL IV SCH (12:59)
[2017-02-20] MEDS ORDERED: GLUCAGON 1 MG VIAL IM PRN (12:59)
[2017-02-20] MEDS ORDERED: DEXTROSE 50% 25 GM/50 ML VIAL IV PRN (12:59)
[2017-02-20] MEDS ORDERED: methylPREDNISolone SOD SUC 40 MG/1 ML VIAL IV SCH (13:00)
[2017-02-20] MEDS ORDERED: LORazepam 2 MG/1 ML VIAL IV PRN (13:00)
[2017-02-20] MEDS ORDERED: LEVOFLOXACIN INJ 750 MG in PREMIX 1 EACH IV SCH (13:00)
[2017-02-20] MEDS ORDERED: CLINDAMYCIN 300 MG/50 ML IV SCH (13:00)
[2017-02-20] MEDS: PHENYTOIN 100 MG/2 ML VIAL IV SCH ×2 (14:05→21:19)
[2017-02-20] MEDS: HEPARIN 5,000 UNIT/1 ML VIAL SUBCUT SCH (14:08)
--- NOTE | 2017-02-20 14:09 | Pulmonology Consult Note ---
Assessment and Plan (1) Acute exacerbation of chronic obstructive airways disease Status: Acute Assessment and plan: Patient comes in with shortness of breath and has some mild stridor. She is moving air fairly well at present. She will continue her steroids and bronchodilator therapy. Current Visit: No (2) End stage renal disease on dialysis Status: Acute Assessment and plan: Patient had dialysis this morning. Current Visit: Yes (3) Diabetes mellitus Status: Acute Assessment and plan: Patient's glucoses will be monitored. Current Visit: Yes (4) Seizure disorder Status: Acute Assessment and plan: Patient will continue her seizure medicine. Current Visit: Yes (5) Stomatitis monilial Status: Acute Assessment and plan: We will continue with Mycostatin. Current Visit: Yes History of Present Illness Chief complaint: Shortness of breath History of present illness: Ms. Albert is a 61 year old black female that has numerous problems including hypertension, diabetes, COPD, atrial fibrillation, obstructive sleep, and has end-stage renal disease on dialysis. She has a history of seizures and recently was felt to have aspiration pneumonia. Her last admission she had to be intubated after having seizures. She had been stabilized and was transferred to [facility]. She was doing fairly well and her breathing has been better and she was comfortable. She went to an assisted living center yesterday. Today she was at dialysis and complained of some shortness of breath and was thought to have some stridor. She was transferred to [place] is an readmitted. She apparently has some thrush but has not had trouble swallowing. Her chest x-ray does not show heart failure. She is breathing comfortably at present. Home Medications Medication Instructions Recorded Confirmed Type Atorvastatin [Lipitor] 40 mg PO BEDTIME 12/10/15 01/09/17 History Multivitamin [One Daily] 1 tablet PO QAM 12/10/15 01/09/17 History Montelukast Tab [Singulair Tab] 10 mg PO BEDTIME 02/02/16 01/09/17 History Insulin Detemir [Levemir FlexPen] 8 unit SUBCUT 1900 02/24/16 01/09/17 History Calcium Acetate 667 mg PO TID W/MEALS 06/16/16 01/09/17 History Ipratropium/Albuterol Sulfate 3 ml PO QID PRN 06/16/16 01/09/17 History [Iprat-Albut 0.5-3(2.5) mg/3 ml] Methocarbamol 750 mg PO BID PRN 09/26/16 01/09/17 History Fluticasone/Salmeterol 250-50 1 puff INH QAM 10/03/16 01/09/17 History [Advair 250-50] Aspirin EC Tab 162.5 mg PO QAM 11/12/16 01/09/17 History Amiodarone Tab [Cordarone Tab] 400 mg PO BID #90 tablet 12/28/16 01/09/17 Rx Acetaminophen Tab [Tylenol Tab] 650 mg PO Q4H PRN tablet 01/19/17 Rx Albuterol/Ipratropium Neb [Duoneb] 3 ml RESP TX RT Q6H 01/19/17 Rx Clindamycin Inj [Cleocin Inj] 300 mg IV Q8H 01/19/17 Rx Diltiazem Tab [Cardizem Tab] 90 mg PO TID tablet 01/19/17 Rx Docusate Sodium Cap [Colace Cap] 100 mg PO BID PRN capsule 01/19/17 Rx Epoetin Jeffrey [Epogen] 10,000 unit IV WITH DIALYSIS PRN 01/19/17 Rx vial Famotidine Inj [Pepcid Inj] 20 mg IV Q24H vial 01/19/17 Rx Gabapentin Liquid [Neurontin 100 mg NG QAM bottle 01/19/17 Rx Liquid] Gabapentin Liquid [Neurontin 200 mg PO BEDTIME bottle 01/19/17 Rx Liquid] Glucagon 1 mg IM PRN PRN vial 01/19/17 Rx Heparin Inj 2,000 unit IV .DIALYSIS PRN vial 01/19/17 Rx Heparin Lock Flush 50 units IV PRN PRN syringe 01/19/17 Rx Heparin Lock Flush 50 units IV Q12H syringe 01/19/17 Rx Insulin Lispro [HumaLOG] See Protocol SUBCUT Q6HR unit 01/19/17 Rx LORazepam INJ [Ativan Inj] 1 mg IV Q6H PRN vial 01/19/17 Rx Lidocaine 5% Patch [Lidoderm 5% 1 patch TRANSDERM DAILY patch 01/19/17 Rx Patch] Metoclopramide Inj [Reglan Inj] 5 mg IV Q6HR vial 01/19/17 Rx Ondansetron Inj [Zofran Inj] 4 mg IV Q4H PRN vial 01/19/17 Rx Phenytoin Inj [Dilantin Inj] 100 mg IV Q8H vial 01/19/17 Rx cefTAZidime [Fortaz] 500 mg IV Q12H vial 01/19/17 Rx levETIRAcetam INJ [Keppra Inj] 500 mg IV Q8H vial 01/19/17 Rx Allergies Allergy/AdvReac Type Severity Reaction Status Date / Time codeine Allergy Severe Swelling Verified 04/12/16 19:35 of Lip/Tongue/Throat morphine AdvReac Intermediate Abdominal Verified 04/12/16 19:35 Pain olmesartan [From Benicar] AdvReac Unknown/Unable Verified 09/26/16 11:22 to obtain venlafaxine [From Effexor] AdvReac Abdominal Verified 09/26/16 11:22 Pain Review of systems: She has not been having a sore throat but she mainly complains of shortness of breath. She had been quite stable at [facility] last week. Exam (Pulmonay) H&P - Constitutional Vitals: Period Temp Pulse Resp BP Sys/Gonzalez Pulse Ox Last 24 Hr 97.4 F-99.7 F 91-113 16-22 100-135/67-94 86-100 General appearance: normal weight, mild distress (She is talking okay but does look a little anxious.) - Head Head exam: Present: normal inspection, normocephalic - Eye Eye exam: Present: EOMI. Absent: scleral icterus Pupils: Present: JOSE - ENT ENT exam: Present: other (She has dry mucous membranes and some mild thrush) - Neck Neck exam: Present: other (She does have some very mild stridor.). Absent: lymphadenopathy, thyromegaly - Respiratory Respiratory exam: Present: decreased breath sounds, prolonged expiratory phase, rhonchi - Cardiovascular Cardiovascular exam: Present: regular rate and rhythm, tachycardia. Absent: gallop, systolic murmur - GI/Abdominal GI/Abdominal exam: Present: normal bowel sounds, soft. Absent: distended, organomegaly, tenderness - Extremities Exam Extremities exam: Absent: calf tenderness, edema - Neurological Exam Neurological exam: Present: alert, oriented X3, CN II-XII intact - Psychiatric Psychiatric exam: Present: normal affect, anxious - Skin Skin exam: Present: warm, dry Medical,Surgical,& Family Hx - Medical History Cardio: History of: Cardiac Dysrhythmia (A-FIB), CHF, Hypertension No history of: CAD, [place], Pacemaker, PVD Psychological: History of: Anxiety Disorders, Depression Neurology: History of: Migraine No history of: Seizures, TIA HEENT: History of: Eye Problem (GLASSES/CATARCTS), HEENT Problems (SINUSITIS/ ALLERGIES) Endocrine: History of: Diabetes Mellitus (IDDM), Diabetes Mellitus (NIDDM), Dyslipidemia Respiratory: History of: Asthma, Bronchitis, COPD, Obstructive Sleep Apnea ( doesnt wear cpap), Respiratory Problems (DR. SALAZAR AT [place]) No history of: Pulmonary Embolism Renal: History of: Dialysis (Tues, Th, Sat), Renal Failure, Renal Problems ( [facility] TOPETE [facility]SUFFICI[facility]) Gastrointestinal: History of: GERD No history of: Hepatitis Musculoskeletal: History of: Back/Neck Problems Hematology: History of: Anemia No history of: Blood Transfusion Reaction Other: No history of: Anesthesia Reactions, Cancer - Surgical History Cardiac Surgeries: Patient Denies: Cardiac Catheterization, Vascular Access Devices Neurologic Surgeries: Patient denies: Neurologic Surgery HEENT Surgeries: Surgical HX of: Eye Surgery (FOR CATARACT LT 03/05/15) Reproductive Surgeries: Surgical HX of;: Section (X1), Hysterectomy ( WITH BSO), Tubal Ligation Orthopedic Surgeries: Surgical HX of;: Orthopedic Surgery (RIGHT KNEE SURG), Spinal Surgery ( BACK SURGERY) - Family History Family History: Reports;: Family Diabetes (MOTHER () and brother), Family Heart Disease (GRANDPARENTS/PARENTS), Family Hypertension (PARENTS), Family Stroke (sister) - Social History Smoking Status: Former smoker Frequency of Alcohol Use: None Type of Drug Use: None Results - Labs CBC & BMP: 02/20/17 09:39 02/20/17 09:39 Labs: Her PO2 is 118 with a PCO2 of 48 and a pH of 7.33 - Diagnostic Findings Procedure: Chest x-ray: image reviewed by me, report reviewed by me (Chest x- ray shows mild cardiomegaly but no overt heart failure.)
[2017-02-20] MEDS: levETIRAcetam 500 MG/5 ML VIAL IV SCH ×2 (14:24→21:19)
[2017-02-20] MEDS: CLINDAMYCIN INJ 300 MG in PREMIX 1 EACH IV SCH ×2 (14:50→21:19)
[2017-02-20] MEDS: cefTAZidime 500 MG in SODIUM CHLORIDE 0.9% 100 ML IV SCH (15:49)
[2017-02-20] MEDS: NYSTATIN 500,000 UNIT/5 ML UDCUP SWISH/SWAL SCH ×2 (16:39→21:18)
[2017-02-20] MEDS: CALCIUM ACETATE 667 MG CAPSULE PO SCH (16:41)
[2017-02-20] MEDS: INSULIN REGULAR 100 UNIT/ML SUBCUT SCH ×2 (16:41→21:20)
[2017-02-20] MEDS: METOCLOPRAMIDE 10 MG/2 ML VIAL IV SCH (17:59)
[2017-02-20] MEDS: methylPREDNISolone SOD SUC 40 MG/1 ML VIAL IV SCH (18:30)
[2017-02-20] MEDS: ALBUTEROL/IPRATROPIUM 3 ML NEB RESP TX SCH (19:28)
[2017-02-20] MEDS: ATORVASTATIN 40 MG TABLET PO SCH (21:18)
[2017-02-20] MEDS: AMIODARONE 200 MG TABLET PO SCH (21:18)
[2017-02-20] MEDS: MONTELUKAST 10 MG TABLET PO SCH (21:18)
[2017-02-20] MEDS: GABAPENTIN 50 MG/ML 30 ML/BOTTLE PO SCH (21:45)
[2017-02-21] MEDS: ALBUTEROL/IPRATROPIUM 3 ML NEB RESP TX SCH ×4 (00:07→19:39)
[2017-02-21] MEDS: METOCLOPRAMIDE 10 MG/2 ML VIAL IV SCH ×4 (00:14→17:04)
[2017-02-21] MEDS: HEPARIN 5,000 UNIT/1 ML VIAL SUBCUT SCH ×2 (00:15→15:14)
[2017-02-21 03:04] LABS: ABG Base Excess -5.2 MMOL/L (-2.5-2.5); ABG HCO3 20.9 MMOL/L (20-26); ABG Oxygen Saturation 96.1 % (95-100); ABG PCO2 43.6 MM HG (35-48); ABG PH 7.298 (7.35-7.45); ABG PO2 89.6 MM HG (80-95); ABG TCO2 22.2 MMOL/L (23-27); Allen Test Positive
[2017-02-21] MEDS: methylPREDNISolone SOD SUC 40 MG/1 ML VIAL IV SCH ×6 (04:25→20:26)
[2017-02-21] MEDS: levETIRAcetam 500 MG/5 ML VIAL IV SCH ×3 (04:25→20:24)
[2017-02-21] MEDS: PHENYTOIN 100 MG/2 ML VIAL IV SCH ×3 (04:26→20:24)
[2017-02-21] MEDS: CLINDAMYCIN INJ 300 MG in PREMIX 1 EACH IV SCH ×3 (04:58→20:40)
[2017-02-21] MEDS: ALBUTEROL 2.5 MG/3 ML NEB RESP TX PRN (05:00)
[2017-02-21 05:25] LABS: Basophils % 0.1 % (0.0-0.8); Hematocrit 22.9 VOL% (35.7-47.0); Hemoglobin 7.3 GM/DL (12.0-16.0); Immature Granulocytes % 0.9 %; Immature Granulocytes Absolute 0.09 #; Lymphocytes # 0.7 10*3/uL (1.4-4.0); Lymphocytes % 6.4 % (21.3-54.2); Mean Corpuscular HGB Conc 31.9 GM/DL (32-36); Mean Corpuscular Hemoglobin 30 PG (27-34); Mean Corpuscular Volume 93.1 FL (87-102); Mean Platelet Volume 10.9 FL (9.6-12.0); Monocytes # 0.9 10*3/uL (0.11-0.8); Monocytes % 8.5 % (1.7-12.7); Neutrophils # 8.7 10*3/uL (1.4-7.4); Neutrophils % 84.1 % (38.7-73.9); Platelet Count 136 T/CUMM (130-400); Red Blood Count 2.46 MC/CUMM (3.8-5.5); Red Cell Distribution Width 18.3 % (9.3-17.3); White Blood Count 10.4 T/CUMM (4-12)
[2017-02-21 06:00] LABS: Lactic Acid 2.4 MMOL/L (0.4-2.0)
[2017-02-21] MEDS: ONDANSETRON 4 MG/2 ML VIAL IV PRN (06:17)
[2017-02-21] MEDS: INSULIN REGULAR 100 UNIT/ML SUBCUT SCH ×4 (08:18→20:23)
[2017-02-21] MEDS: NYSTATIN 500,000 UNIT/5 ML UDCUP SWISH/SWAL SCH ×4 (08:19→20:22)
[2017-02-21] MEDS: AMIODARONE 200 MG TABLET PO SCH ×2 (08:20→20:22)
[2017-02-21] MEDS: ASPIRIN EC 325 MG TABLET PO SCH (08:20)
[2017-02-21] MEDS: FLUTICASONE/SALMETEROL 250-50 DISKUS 14 DOSE INH SCH (08:21)
[2017-02-21] MEDS: MULTIVITAMIN (CENTRUM) TABLET PO SCH (08:21)
[2017-02-21] MEDS: CALCIUM ACETATE 667 MG CAPSULE PO SCH ×3 (08:21→16:26)
[2017-02-21] MEDS: LIDOCAINE 5% PATCH TRANSDERM SCH (08:22)
--- NOTE | 2017-02-21 08:31 | Pulmonology Progress Note ---
Pulmonary - PN: Subj Interval history: Patient is a 61-year-old black lady that has a component of COPD along with hypertension and diabetes and end-stage renal disease. She comes in with worsening respiratory distress and is having some stridor. She had a fairly good night but gets anxious easily. She still feels a little short of breath and continues to have some stridor. She is getting respiratory therapy and steroids. Her chest x-ray did not look that bad. She had dialysis yesterday. Exam (Progress Note) - Constitutional Vitals: Period Temp Pulse Resp BP Sys/Gonzalez Pulse Ox Last 24 Hr 97 F-99.7 F 52-113 13-22 100-151/46-95 86-100 Exam: General appearance: normal weight, mild distress (She is talking okay but does look a little anxious. She still has some stridor present.) - Head Head exam: Present: normal inspection, normocephalic - Eye Eye exam: Present: EOMI. Absent: scleral icterus Pupils: Present: JOSE - ENT ENT exam: Present: other (She has dry mucous membranes but I do not see much exudate now ) - Neck Neck exam: Present: other (She does have some very mild stridor.). Absent: lymphadenopathy, thyromegaly - Respiratory Respiratory exam: Present: She has fair breath sounds bilaterally without any definite wheezing. - Cardiovascular Cardiovascular exam: Present: regular rate and rhythm, tachycardia. Absent: gallop, systolic murmur - GI/Abdominal GI/Abdominal exam: Present: normal bowel sounds, soft. Absent: distended, organomegaly, tenderness - Extremities Exam Extremities exam: Absent: calf tenderness, edema - Neurological Exam Neurological exam: Present: alert, oriented X3, CN II-XII intact - Psychiatric Psychiatric exam: Present: normal affect, anxious - Skin Skin exam: Present: warm, dry Results - Labs CBC & BMP: 02/21/17 04:54 02/20/17 09:39 Assessment and Plan (1) Acute exacerbation of chronic obstructive airways disease Status: Acute Assessment and plan: Patient comes in with shortness of breath and has some mild stridor. She is moving air fairly well at present. She will continue her steroids and bronchodilator therapy. She is not a lot better today and will have ENT check her throat. Current Visit: No (2) End stage renal disease on dialysis Status: Acute Assessment and plan: Patient had dialysis yesterday and is stable. Current Visit: Yes (3) Diabetes mellitus Status: Acute Assessment and plan: Patient's glucoses will be monitored. Current Visit: Yes (4) Seizure disorder Status: Acute Assessment and plan: Patient will continue her seizure medicine. Current Visit: Yes (5) Stomatitis monilial Status: Acute Assessment and plan: We will continue with Mycostatin. She is not complaining of a sore throat now. Current Visit: Yes
[2017-02-21] MEDS: GABAPENTIN 50 MG/ML 30 ML/BOTTLE NG SCH (08:36)
--- NOTE | 2017-02-21 09:50 | Consultation ---
Assessment and Plan - Time spent with patient Time spent with patient: Less than 30 minutes (1) Laryngeal stridor Status: Acute Assessment and plan: patient underwent flexible laryngoscopy via right nostril: vocal cords normal, questionable slight left vocal paresis. non-infectious, non-erythematous edema of posterior commissure. Possible submucosal cyst in subglottic larynx, posterior, to the right of the midline. Not stridorous during examination. Recommend consulting Dr. Nath tomorrow for consideration of operative laryngoscopy. If respiratory status worsens, consideration endotracheal intubation. Current Visit: Yes History of Present Illness - Data of Consult Consult date: 02/21/17 Requesting Physician: João Valenzuela - Consult Narrative Reason for consult: stridor History of present illness: Ms. Albert is a 61 year old female with 3-4 days of dyspnea, now with stridor. ER note reviewed, sleep endoscopy report of Dr. Nath reviewed. Patient reports no recollection of seeing Dr. Nath, no recollection of discussing results of sleep endoscopy. On my arrival, she is stridorous, but not tachypneic. O2 sat of 94% on 3L NC. CC: Brianna Mishra MD - Home Medications and Allergies Home Medications: Home Medications Medication Instructions Recorded Confirmed Type Atorvastatin [Lipitor] 40 mg PO BEDTIME 12/10/15 01/09/17 History Multivitamin [One Daily] 1 tablet PO QAM 12/10/15 01/09/17 History Montelukast Tab [Singulair Tab] 10 mg PO BEDTIME 02/02/16 01/09/17 History Insulin Detemir [Levemir FlexPen] 8 unit SUBCUT 1900 02/24/16 01/09/17 History Calcium Acetate 667 mg PO TID W/MEALS 06/16/16 01/09/17 History Ipratropium/Albuterol Sulfate 3 ml PO QID PRN 06/16/16 01/09/17 History [Iprat-Albut 0.5-3(2.5) mg/3 ml] Methocarbamol 750 mg PO BID PRN 09/26/16 01/09/17 History Fluticasone/Salmeterol 250-50 1 puff INH QAM 10/03/16 01/09/17 History [Advair 250-50] Aspirin EC Tab 162.5 mg PO QAM 11/12/16 01/09/17 History Amiodarone Tab [Cordarone Tab] 400 mg PO BID #90 tablet 12/28/16 01/09/17 Rx Acetaminophen Tab [Tylenol Tab] 650 mg PO Q4H PRN tablet 01/19/17 Rx Albuterol/Ipratropium Neb [Duoneb] 3 ml RESP TX RT Q6H 01/19/17 Rx Clindamycin Inj [Cleocin Inj] 300 mg IV Q8H 01/19/17 Rx Diltiazem Tab [Cardizem Tab] 90 mg PO TID tablet 01/19/17 Rx Docusate Sodium Cap [Colace Cap] 100 mg PO BID PRN capsule 01/19/17 Rx Epoetin Jeffrey [Epogen] 10,000 unit IV WITH DIALYSIS PRN 01/19/17 Rx vial Famotidine Inj [Pepcid Inj] 20 mg IV Q24H vial 01/19/17 Rx Gabapentin Liquid [Neurontin 100 mg NG QAM bottle 01/19/17 Rx Liquid] Gabapentin Liquid [Neurontin 200 mg PO BEDTIME bottle 01/19/17 Rx Liquid] Glucagon 1 mg IM PRN PRN vial 01/19/17 Rx Heparin Inj 2,000 unit IV .DIALYSIS PRN vial 01/19/17 Rx Heparin Lock Flush 50 units IV PRN PRN syringe 01/19/17 Rx Heparin Lock Flush 50 units IV Q12H syringe 01/19/17 Rx Insulin Lispro [HumaLOG] See Protocol SUBCUT Q6HR unit 01/19/17 Rx LORazepam INJ [Ativan Inj] 1 mg IV Q6H PRN vial 01/19/17 Rx Lidocaine 5% Patch [Lidoderm 5% 1 patch TRANSDERM DAILY patch 01/19/17 Rx Patch] Metoclopramide Inj [Reglan Inj] 5 mg IV Q6HR vial 01/19/17 Rx Ondansetron Inj [Zofran Inj] 4 mg IV Q4H PRN vial 01/19/17 Rx Phenytoin Inj [Dilantin Inj] 100 mg IV Q8H vial 01/19/17 Rx cefTAZidime [Fortaz] 500 mg IV Q12H vial 01/19/17 Rx levETIRAcetam INJ [Keppra Inj] 500 mg IV Q8H vial 01/19/17 Rx Allergies/Adverse Reactions: Allergies Allergy/AdvReac Type Severity Reaction Status Date / Time codeine Allergy Severe Swelling Verified 04/12/16 19:35 of Lip/Tongue/Throat morphine AdvReac Intermediate Abdominal Verified 04/12/16 19:35 Pain olmesartan [From Benicar] AdvReac Unknown/Unable Verified 09/26/16 11:22 to obtain venlafaxine [From Effexor] AdvReac Abdominal Verified 09/26/16 11:22 Pain - Constitutional Constitutional: Present: as per HPI - EENT Eyes: Present: as per HPI Ears: Present: as per HPI Nose, mouth and throat: Present: as per HPI Medical,Surgical,& Family Hx - Medical History Cardio: History of: Cardiac Dysrhythmia (A-FIB), CHF, Hypertension No history of: CAD, [place], Pacemaker, PVD Psychological: History of: Anxiety Disorders, Depression Neurology: History of: Migraine No history of: Seizures, TIA HEENT: History of: Eye Problem (GLASSES/CATARCTS), HEENT Problems (SINUSITIS/ ALLERGIES, OSAS) Endocrine: History of: Diabetes Mellitus (IDDM), Diabetes Mellitus (NIDDM), Dyslipidemia Respiratory: History of: Asthma, Bronchitis, COPD, Obstructive Sleep Apnea ( doesnt wear cpap), Respiratory Problems (DR. SALAZAR AT [place]) No history of: Pulmonary Embolism Renal: History of: Dialysis (, , Wed), Renal Failure, Renal Problems ( [facility] TOPET[facility]SUFFICI[facility]) Gastrointestinal: History of: GERD No history of: Hepatitis Musculoskeletal: History of: Back/Neck Problems Hematology: History of: Anemia No history of: Blood Transfusion Reaction Other: No history of: Anesthesia Reactions, Cancer - Surgical History Cardiac Surgeries: Patient Denies: Cardiac Catheterization, Vascular Access Devices Neurologic Surgeries: Patient denies: Neurologic Surgery HEENT Surgeries: Surgical HX of: Eye Surgery (FOR CATARACT LT 03/05/15) Reproductive Surgeries: Surgical HX of;: Section (X1), Hysterectomy ( WITH BSO), Tubal Ligation Orthopedic Surgeries: Surgical HX of;: Orthopedic Surgery (RIGHT KNEE SURG), Spinal Surgery ( BACK SURGERY) - Family History Family History: Reports;: Family Diabetes (MOTHER () and brother), Family Heart Disease (GRANDPARENTS/PARENTS), Family Hypertension (PARENTS), Family Stroke (sister) - Social History Smoking Status: Former smoker Frequency of Alcohol Use: None Type of Drug Use: None Exam - Constitutional Vitals: Period Temp Pulse Resp BP Sys/Gonzalez Pulse Ox Last 24 Hr 97 F-98.6 F 52-100 13-22 100-151/46-95 92-100 General appearance: no acute distress - Head Head exam: Present: normal inspection - ENT ENT exam: Present: normal oropharynx - Expanded ENT Exam Mouth exam: Present: moist Throat exam: Present: normal inspection. Absent: tonsillar exudate - Neck Neck exam: Present: normal inspection. Absent: lymphadenopathy, tenderness - Respiratory Respiratory exam: Present: stridor, other (see flexible endoscopy note) Results - Labs CBC & BMP: 02/21/17 04:54 02/20/17 09:39
[2017-02-21 11:46] LABS: Calcium 8.4 MG/DL (8.5-10.1); Osmolality,Calculated 279.7 MOS/KG (273-304); Potassium 5.1 MMOL/L (3.5-5.1); Risk Ratio 1.68; Thyroid Stimulating Hormone 1.48 uIU/ml (0.358-3.74); VLDL CHOLESTEROL 8.2 MG/DL
[2017-02-21] MEDS: PANTOPRAZOLE 40 MG VIAL IV SCH (11:47)
[2017-02-21 11:56] LABS: ABG Base Excess -5.9 MMOL/L (-2.5-2.5); ABG HCO3 19.5 MMOL/L (20-26); ABG Oxygen Saturation 97.6 % (95-100); ABG PCO2 48.4 MM HG (35-48); ABG PH 7.249 (7.35-7.45); ABG PO2 96.6 MM HG (80-95); ABG TCO2 20.2 MMOL/L (23-27); Allen Test Positive
--- NOTE | 2017-02-21 12:09 | Nephrology Progress Note ---
Nephrology - PN: Subj Interval history: Pt sitting up in bed. Denies knowing me. Not oriented. S/P laryngoscopy with no vocal chord edema. No mention of plaques of thrush. Resp acidosis. K 5.1. Exam (PN)-Nephrology - Vital Signs Vital signs: Period Temp Pulse Resp BP Sys/Gonzalez Pulse Ox Last 24 Hr 97 F-98.6 F 52-99 12-22 102-151/46-95 92-100 - General Appearance General appearance: well-developed, chronically ill EENT: ATNC, PERRL, mucous membranes dry, hearing intact, vision intact Neck: no JVD, no thyromegaly Respiratory: no kyphosis, clear Cardiology: no murmurs, no rub Gastrointestinal: normoactive bowel sounds, no tenderness Integumentary: no rash, warm and dry Neurologic: no focal deficit, no asterixis, confused, disoriented Musculoskeletal: no deformities, no erythema Psychiatric: mood/affect appropriate, cooperative - Lab 02/21/17 04:54 02/21/17 10:32 Most recent lab results ABG pH 7.249 (7.35-7.45) L 02/21/17 11:23 ABG pCO2 48.4 MM HG (35-48) H 02/21/17 11:23 ABG pO2 96.6 MM HG (80-95) H 02/21/17 11:23 ABG HCO3 19.5 MMOL/L (20-26) L 02/21/17 11:23 ABG O2 Saturation 97.6 % (95-100) 02/21/17 11:23 Calcium 8.4 MG/DL (8.5-10.1) L 02/21/17 10:32 Assessment and Plan (1) ESRD on dialysis Problem details: No acute indication for HD Status: Chronic Assessment and plan: Fluid restrict to 1L/day. Strict renal diet (low K/PO4). Renally dose all meds for eGFR <10cc/min on dialysis. No need to avoid contrast if indicated. Plan HD tomorrow for volume/K. Current Visit: No (2) COPD (chronic obstructive pulmonary disease) Status: Chronic Current Visit: No Qualifiers: (3) Dyspnea Problem details: inspiratory stridor and thrush, not overtly volume overloaded Status: Resolved Assessment and plan: pulmonary consult, agree with ICU admission. Current Visit: No (4) Chronic atrial fibrillation Status: Chronic Current Visit: No
[2017-02-21] MEDS: RACEPINEPHRINE 0.5 ML NEB RESP TX PRN ×2 (12:20→14:36)
--- NOTE | 2017-02-21 12:43 | Hospitalist Progress Note ---
Assessment and Plan (1) Dyspnea Problem details: inspiratory stridor and thrush, not overtly volume overloaded Status: Resolved Assessment and plan: Continue with Bronchodilators, Steroids and nebs treatment. Pulmonology is following Current Visit: No (2) Stridor Status: Acute Assessment and plan: Patient underwent flexible laryngoscopy via right nostril: vocal cords normal, questionable slight left vocal paresis. non-infectious, non-erythematous edema of posterior commissure. Possible submucosal cyst in subglottic larynx, posterior, to the right of the midline. ENT is following CT soft tissue of the neck when patient is more stable Current Visit: Yes (3) Acute exacerbation of chronic obstructive airways disease Status: Acute Assessment and plan: CXR showed a small amount of increased left midlung density, could indicate pneumonia. plan continue with antibiotics, steroids, nebs treatment Current Visit: No (4) ESRD on dialysis Problem details: No acute indication for HD Status: Chronic Assessment and plan: Nephrology is following, continue dialysis Current Visit: No (5) Anemia Status: Chronic Assessment and plan: most likely of chronic disease. -Will transfuse with dialysis in am. Current Visit: No Qualifiers: Anemia type: due to chronic kidney disease Chronic kidney disease stage: on chronic dialysis Qualified Code(s): N18.6 - End stage renal disease; D63.1 - Anemia in chronic kidney disease; Z99.2 - Dependence on renal dialysis (6) Diabetes mellitus Status: Chronic Assessment and plan: continue current regime. [id number] Current Visit: No Hospitalist: Subjective Interval history: 61yr old admitted for SOb and stridor. ENT did a flexible laryngoscopy via right nostril today and they feel that the vocal cords are normal, but a questionable slight left vocal paresis is noted. Patient has been finding it difficult to stay awake, she uses a CPAP at home which was said to have broken down.Pulmonology is following. Exam - Constitutional Vitals: Period Temp Pulse Resp BP Sys/Gonzalez Pulse Ox Last 24 Hr 97 F-98.6 F 52-99 12-22 102-133/46-95 92-100 General appearance: mild distress, other (stridor) - Head Head exam: Present: normal inspection - Expanded ENT Exam Mouth exam: Present: moist Throat exam: Present: normal inspection. Absent: tonsillar exudate - Respiratory Respiratory exam: Present: clear to auscultation bilaterally - Cardiovascular Cardiovascular exam: Present: regular rate and rhythm - GI/Abdominal GI/Abdominal exam: Present: normal bowel sounds - Extremities Exam Extremities exam: Present: normal inspection - Neurological Exam Neurological exam: Present: other (difficult to stay awake) Results - Labs CBC & BMP: 02/21/17 04:54 02/21/17 10:32 Lab Results: I have reviewed the past 24 hour labs
[2017-02-21] MEDS ORDERED: RACEPINEPHRINE 0.5 ML NEB RESP TX PRN ×2 (13:52→15:36)
[2017-02-21] MEDS: ALBUTEROL/IPRATROPIUM 3 ML NEB RESP TX PRN (14:36)
[2017-02-21] MEDS: cefTAZidime 500 MG in SODIUM CHLORIDE 0.9% 100 ML IV SCH (15:16)
--- NOTE | 2017-02-21 15:33 | CT Report ---
CT soft tissue neck Indication: Difficulty breathing Technique:Axial CT imaging of the neck is performed without contrast. Comparison: None available Findings: No mass or adenopathy is seen. The parotid glands and submandibular glands are symmetric in size and density. The pharyngeal and laryngeal structures are normal in appearance. Detail is somewhat limited without contrast. The thyroid gland and trachea appear within normal limits. Vascular structures have normal noncontrast appearance. Impression: No evidence of abnormality demonstrated This CT exam was performed using one or more the following dose reduction techniques: Automated exposure control, adjustment of the MA and/or KV according to patient size, or use of iterative reconstruction technique. PROCEDURE INTERPRETED AT [facility] DEPARTMENT OF RADIOLOGY Final Report Signed by: Dr. Kyle Humphreys
[2017-02-21] MEDS: MONTELUKAST 10 MG TABLET PO SCH (20:22)
[2017-02-21] MEDS: GABAPENTIN 50 MG/ML 30 ML/BOTTLE PO SCH (20:22)
[2017-02-21] MEDS: ATORVASTATIN 40 MG TABLET PO SCH (20:22)
[2017-02-22] MEDS: METOCLOPRAMIDE 10 MG/2 ML VIAL IV SCH ×4 (00:29→19:12)
[2017-02-22] MEDS: ACETAMINOPHEN 325 MG TABLET PO PRN ×2 (00:29→16:41)
[2017-02-22] MEDS: HEPARIN 5,000 UNIT/1 ML VIAL SUBCUT SCH ×2 (00:30→15:52)
[2017-02-22] MEDS: ALBUTEROL/IPRATROPIUM 3 ML NEB RESP TX SCH ×4 (01:54→20:42)
[2017-02-22] MEDS: methylPREDNISolone SOD SUC 40 MG/1 ML VIAL IV SCH ×3 (03:27→19:13)
[2017-02-22] MEDS: CLINDAMYCIN INJ 300 MG in PREMIX 1 EACH IV SCH ×3 (05:45→21:40)
[2017-02-22] MEDS: PHENYTOIN 100 MG/2 ML VIAL IV SCH ×2 (05:45→15:51)
[2017-02-22] MEDS: levETIRAcetam 500 MG/5 ML VIAL IV SCH ×2 (05:45→18:08)
[2017-02-22 06:04] LABS: Basophils % 0.1 % (0.0-0.8); Eosinophils # 0.1 10*3/uL (0.0-0.87); Eosinophils % 0.3 % (0.00-10.9); Hematocrit 28.2 VOL% (35.7-47.0); Immature Granulocytes Absolute 0.33 #; Lymphocytes # 0.5 10*3/uL (1.4-4.0); Mean Corpuscular Hemoglobin 30 PG (27-34); Mean Corpuscular Volume 91.6 FL (87-102); Mean Platelet Volume 11.5 FL (9.6-12.0); Monocytes # 1.9 10*3/uL (0.11-0.8); Monocytes % 11.6 % (1.7-12.7); NRBC # 0.15 10*3/uL; Neutrophils # 13.8 10*3/uL (1.4-7.4); Platelet Count 143 T/CUMM (130-400); Red Cell Distribution Width 18.1 % (9.3-17.3)
[2017-02-22 06:09] LABS: White Blood Count 16.6 T/CUMM (4-12)
[2017-02-22 06:10] LABS: Hemoglobin 9.3 GM/DL (12.0-16.0); Red Blood Count 3.08 MC/CUMM (3.8-5.5)
[2017-02-22 06:12] LABS: Calcium 8.1 MG/DL (8.5-10.1); Osmolality,Calculated 281.7 MOS/KG (273-304)
[2017-02-22 06:16] LABS: Potassium 6.1 MMOL/L (3.5-5.1)
[2017-02-22 06:28] LABS: Hypochromasia 1+; Lymphocytes 6 % (20-55); Platelet Estimate Adequate; Segmented Neutrophils 89 % (50-85); Total Cells Counted 100
[2017-02-22] MEDS: SODIUM POLYSTYRENE SULFATE 15 GM/60 ML BOTTLE PO ONE ×2 (06:32→10:40)
--- NOTE | 2017-02-22 07:34 | Pulmonology Progress Note ---
Pulmonary - PN: Subj Interval history: This 61-year-old white female had a recent hospitalization after having a seizure and aspirating. She had a prolonged mechanical ventilation. She was eventually extubated at [facility]. She was taking in pured foods and thickened liquids. She tended to get more short of breath when she was due to have dialysis but usually not after dialysis. Apparently she went to the swing bed after her first dialysis there get short of breath and had some stridor and was moved up here. Neck films have been okay. I bronchoscoped her when she was having some stridor after extubation. She had some mild cord edema at that time and we treated her with racemic epinephrine and steroids and it resolved. She does tend to have upper airway noises when she is short of breath. At present she is on noninvasive mechanical ventilation with a setting of 14/8 and 3 L of oxygen and her oxygen saturation is in the upper 80s. I will increase the oxygen a little. Her chest x-ray actually looked good on the . Will recheck.. Exam (Progress Note) - Constitutional Vitals: Period Temp Pulse Resp BP Sys/Gonzalez Pulse Ox Last 24 Hr 97 F-98.2 F 45-93 8-25 92-144/44-100 16-100 Exam: Patient's alert responsive wearing facemask noninvasive mechanical ventilation. Vital signs normal except for oxygen saturation of 88%. Pupils react to light. Neck is supple. Her chest sounds clear. Heart rate is 67. Chest reveals slightly prolonged expiratory phase and a few rhonchi. She is not tight. Heart normal rate and rhythm no murmurs. Abdomen soft nontender no masses. Extremities no clubbing cyanosis edema. Calves nontender. Results - Labs CBC & BMP: 02/22/17 05:49 02/22/17 05:49 Lab Results: I have reviewed the past 24 hour labs Assessment and Plan (1) Chronic renal failure Status: Chronic Assessment and plan: Patient on regular dialysis. Nephrology seen. Tends to get a little ahead on fluid if there is 2 days between dialysis Current Visit: No (2) COPD (chronic obstructive pulmonary disease) Status: Chronic Assessment and plan: Continuing bronchodilators does not appear to be having an acute exacerbation Current Visit: No Qualifiers: (3) Diabetes mellitus Status: Acute Assessment and plan: Blood sugars fairly well controlled. Current Visit: Yes (4) Laryngeal stridor Status: Acute Assessment and plan: ENT is reviewed. She has slight paresis of the left vocal cord and a questionable cyst posteriorly. Dr. Nath is to digital account supervisor in follow-up today. Current Visit: Yes
[2017-02-22] MEDS: INSULIN REGULAR 100 UNIT/ML SUBCUT SCH ×4 (10:31→21:54)
[2017-02-22] MEDS: MULTIVITAMIN (CENTRUM) TABLET PO SCH (10:37)
[2017-02-22] MEDS: AMIODARONE 200 MG TABLET PO SCH ×2 (10:38→21:34)
[2017-02-22] MEDS: FLUTICASONE/SALMETEROL 250-50 DISKUS 14 DOSE INH SCH (10:39)
[2017-02-22] MEDS: ASPIRIN EC 325 MG TABLET PO SCH (10:39)
[2017-02-22] MEDS: CALCIUM ACETATE 667 MG CAPSULE PO SCH ×3 (10:40→18:07)
[2017-02-22] MEDS: LIDOCAINE 5% PATCH TRANSDERM SCH (10:40)
[2017-02-22] MEDS: NYSTATIN 500,000 UNIT/5 ML UDCUP SWISH/SWAL SCH ×4 (10:41→21:33)
[2017-02-22] MEDS ORDERED: HYALURONATE INTRAOCULR ONE (10:43)
[2017-02-22] MEDS ORDERED: CHONDROITIN INTRAOCULR ONE (10:43)
[2017-02-22] MEDS: PANTOPRAZOLE 40 MG VIAL IV SCH (10:52)
[2017-02-22] MEDS: GABAPENTIN 50 MG/ML 30 ML/BOTTLE NG SCH (11:08)
--- NOTE | 2017-02-22 11:42 | Hospitalist Progress Note ---
Assessment and Plan (1) Acute respiratory acidosis Status: Acute Assessment and plan: Repeat ABG. Current Visit: Yes (2) End stage renal disease on dialysis Status: Chronic Assessment and plan: Continue dialysis Wednesday, , Wednesday. Current Visit: Yes (3) Diabetes mellitus Status: Chronic Current Visit: Yes Qualifiers: Diabetes mellitus type: type 2 (4) Paroxysmal atrial fibrillation Status: Chronic Current Visit: Yes (5) Stridor Status: Acute Assessment and plan: ENT and pulmonary following. This is improving with steroids. Current Visit: Yes Hospitalist: Subjective Interval history: Patient seen and examined. No acute events overnight. Case discussed with nursing staff. Labs reviewed. The patient is using noninvasive ventilation. She appears comfortable. Upper airway noise is decreased. Exam - Constitutional Vitals: Period Temp Pulse Resp BP Sys/Gonzalez Pulse Ox Last 24 Hr 97 F-98.2 F 45-93 8-25 92-144/44-100 16-100 Exam: Constitutional System: No distress. No tremulousness. Head: Normocephalic, atraumatic. Ears, Nose and Throat System: No pain or tenderness. No epistaxis or discharge Eyes System: Pupils equal, round, and reactive. Extraocular muscles intact. Neck: Supple, without adenopathy, No jugular venous distention. Respiratory System: Chest clear to auscultation. Cardiovascular System: Heart with regular rate and rhythm. No murmur. GI System: Abdomen soft, nontender. Normo active bowel sounds present. Musculoskeletal System: limbs with no pedal edema. Full distal pulses. Psychiatric System: Conversation is rational - Expanded ENT Exam Mouth exam: Present: moist Throat exam: Present: normal inspection. Absent: tonsillar exudate Results - Labs CBC & BMP: 02/22/17 05:49 02/22/17 05:49 Lab Results: I have reviewed the past 24 hour labs
[2017-02-22 12:26] LABS: ABG Base Excess -18.4 MMOL/L (-2.5-2.5); ABG HCO3 10.4 MMOL/L (20-26); ABG Oxygen Saturation 91.1 % (95-100); ABG PCO2 36.6 MM HG (35-48); ABG PO2 85.1 MM HG (80-95); ABG TCO2 10.5 MMOL/L (23-27); Allen Test Positive
[2017-02-22 12:28] LABS: ABG PH 7.072 (7.35-7.45)
[2017-02-22] MEDS: cefTAZidime 500 MG in SODIUM CHLORIDE 0.9% 100 ML IV SCH (16:42)
[2017-02-22] MEDS ORDERED: SODIUM BICARBONATE 50 MEQ/50 ML SYRINGE IV ONE ×2 (16:59→17:12)
[2017-02-22] MEDS ORDERED: SODIUM ACETATE 150 MEQ in DEXTROSE 5% 925 ML IV SCH (17:30)
--- NOTE | 2017-02-22 17:41 | Nephrology Progress Note ---
Nephrology - PN: Subj Interval history: Patient complains of shortness of breath. Review of systems pulmonary-patient states she has been having a productive cough. Physical exam general patient is chronically ill-appearing, heart is regular rate and rhythm, she has no pitting edema, lungs reveal rales and rhonchi throughout, abdomen is soft with positive bowel sounds Assessment/plan 1. End-stage renal disease-we will plan on hemodialysis today 2. Metabolic acidosis-this patient has a pH of 7.01 her PCO2 is 34 her serum bicarb was 10. She has inadequate respiratory compensation. I am going to dialyze her tonight to correct the acidosis and also try and pull off some fluid to improve her breathing status. Of note her chest x-ray did not overtly volume overloaded 2 days ago. 3. COPD 4. Hyperkalemia-patient's potassium 6.1 this should improve with dialysis setting improving her metabolic acidosis Exam (PN)-Nephrology - Vital Signs Vital signs: Period Temp Pulse Resp BP Sys/Gonzalez Pulse Ox Last 24 Hr 97.0 F-98.2 F 45-98 8-26 92-163/44-105 87-100 - Lab 02/22/17 05:49 02/22/17 05:49 Most recent lab results ABG pH 7.072 (7.35-7.45) L* D 02/22/17 12:15 ABG pCO2 36.6 MM HG (35-48) 02/22/17 12:15 ABG pO2 85.1 MM HG (80-95) 02/22/17 12:15 ABG HCO3 10.4 MMOL/L (20-26) L 02/22/17 12:15 ABG O2 Saturation 91.1 % (95-100) L 02/22/17 12:15 Calcium 8.1 MG/DL (8.5-10.1) L 02/22/17 05:49
[2017-02-22] MEDS ORDERED: SODIUM BICARB INJ 150 MEQ in DEXTROSE 5% 850 ML IV SCH (18:00)
[2017-02-22] MEDS: GABAPENTIN 50 MG/ML 30 ML/BOTTLE PO SCH (21:33)
[2017-02-22] MEDS: PHENYTOIN ER 100 MG CAPSULE PO SCH (21:34)
[2017-02-22] MEDS: ATORVASTATIN 40 MG TABLET PO SCH (21:34)
[2017-02-22] MEDS: MONTELUKAST 10 MG TABLET PO SCH (21:34)
[2017-02-22] MEDS: levETIRAcetam 500 MG TABLET PO SCH (21:34)
[2017-02-22] MEDS: ONDANSETRON 4 MG/2 ML VIAL IV PRN (21:39)
[2017-02-22 23:28] LABS: ABG Base Excess 0.8 MMOL/L (-2.5-2.5); ABG Oxygen Saturation 84.5 % (95-100); ABG PCO2 38.5 MM HG (35-48); ABG PH 7.424 (7.35-7.45); ABG PO2 52.2 MM HG (80-95); ABG TCO2 23.8 MMOL/L (23-27); Allen Test Positive; Pt O2 Delivery Device BIPAP
[2017-02-23] MEDS: CLINDAMYCIN INJ 300 MG in PREMIX 1 EACH IV SCH ×4 (00:10→23:06)
[2017-02-23] MEDS: ALBUTEROL/IPRATROPIUM 3 ML NEB RESP TX SCH ×4 (01:00→20:10)
[2017-02-23 01:12] LABS: Allen Test Positive; Pt O2 Delivery Device Venturi Mask
[2017-02-23 01:13] LABS: ABG Base Excess 3.6 MMOL/L (-2.5-2.5); ABG HCO3 27.6 MMOL/L (20-26); ABG Oxygen Saturation 92.6 % (95-100); ABG PCO2 43.8 MM HG (35-48); ABG PO2 65.6 MM HG (80-95); ABG TCO2 26.9 MMOL/L (23-27)
[2017-02-23] MEDS: METOCLOPRAMIDE 5 MG TABLET PO SCH ×3 (01:27→19:20)
[2017-02-23] MEDS: methylPREDNISolone SOD SUC 40 MG/1 ML VIAL IV SCH ×3 (01:27→15:41)
[2017-02-23] MEDS: HEPARIN 5,000 UNIT/1 ML VIAL SUBCUT SCH ×2 (01:27→13:36)
[2017-02-23 03:38] LABS: ABG HCO3 29.9 MMOL/L (20-26); ABG Oxygen Saturation 77.4 % (95-100); ABG PCO2 45.9 MM HG (35-48); ABG PH 7.431 (7.35-7.45); ABG TCO2 31.3 MMOL/L (23-27); Allen Test Positive; Pt O2 Delivery Device BIPAP
[2017-02-23 03:41] LABS: ABG PO2 39.8 MM HG (80-95)
[2017-02-23] MEDS ORDERED: MIDAZOLAM 10 MG/2 ML VIAL ONE ×2 (04:00→04:30)
[2017-02-23] MEDS ORDERED: ETOMIDATE 20 MG/10 ML VIAL IV ONE (04:13)
[2017-02-23] MEDS ORDERED: PROPOFOL 1,000 MG/100 ML BOTTLE IV ONE (05:02)
[2017-02-23] MEDS ORDERED: PROPOFOL 200 MG/20 ML VIAL IV ONE (05:02)
[2017-02-23] MEDS: PROPOFOL 1,000 MG/100 ML BOTTLE IV SCH ×2 (05:07→17:22)
--- NOTE | 2017-02-23 05:16 | Pulmonology Progress Note ---
Pulmonary - PN: Subj Interval history: This 61-year-old white female had a recent hospitalization after having a seizure and aspirating. She had a prolonged mechanical ventilation. She was eventually extubated at [facility]. She was taking in pured foods and thickened liquids. She tended to get more short of breath when she was due to have dialysis but usually not after dialysis. Apparently she went to the swing bed after her first dialysis there get short of breath and had some stridor and was moved up here. Neck films have been okay. I bronchoscoped her when she was having some stridor after extubation. She had some mild cord edema at that time and we treated her with racemic epinephrine and steroids and it resolved. She does tend to have upper airway noises when she is short of breath. At present she is on noninvasive mechanical ventilation with a setting of 14/8 and 3 L of oxygen and her oxygen saturation is in the upper 80s. I will increase the oxygen a little. Her chest x-ray actually looked good on the . Will recheck. 02/23/2017 I was called to see the patient 345 this morning. She was hypoxemic despite BiPAP and high flow oxygen. Decision was made to go ahead and intubate her. She has been having some upper airway noises. Patient was a difficult intubation and I got Dr. Hough from the emergency room to assist. He got her intubated with a glide scope. I subsequently bronchoscoped her adjusted tube to be pulled back about 3 cm to where it was 2 cm above the arvin. Cleaned out the left long where there were some bloody secretions. Should note that her upper airway appears to be collapsible as with tracheomalacia. Her arytenoids were markedly swollen which made the intubation somewhat difficult. Will sedate and ventilate. Exam (Progress Note) - Constitutional Vitals: Period Temp Pulse Resp BP Sys/Gonzalez Pulse Ox Last 24 Hr 97.0 F-97.8 F 63-110 10-26 94-163/46-105 80-100 Exam: Patient was drowsy but arousable. Still on facemask BiPAP. Vital signs normal except for oxygen saturation of 85% on 5 L oxygen with BiPAP. Pupils react to light. Neck is supple. Her chest sounds clear. Heart rate is 67. Chest reveals slightly prolonged expiratory phase and a few rhonchi. She is not tight. Heart normal rate and rhythm no murmurs. Abdomen soft nontender no masses. Extremities no clubbing cyanosis edema. Calves nontender. Results - Labs CBC & BMP: 02/22/17 05:49 02/22/17 05:49 Lab Results: I have reviewed the past 24 hour labs - Diagnostic Findings Procedure: Chest x-ray: image reviewed by me (Chest x-ray done postintubation showed ET tube to be down the right mainstem bronchus. It was quickly pulled back under bronchoscope guidance to position 2 cm above the arvin.) Assessment and Plan (1) Chronic renal failure Status: Chronic Assessment and plan: Patient on regular dialysis. Nephrology seen. Tends to get a little ahead on fluid if there is 2 days between dialysis 02/23/2017 patient was dialyzed last night. Still has potassium of 6.1 which may be related to acidosis. Current Visit: No (2) COPD (chronic obstructive pulmonary disease) Status: Chronic Assessment and plan: Continuing bronchodilators does not appear to be having an acute exacerbation 02/23/2017 continuing bronchodilators. Current Visit: No Qualifiers: (3) Diabetes mellitus Status: Chronic Assessment and plan: Blood sugars fairly well controlled. Current Visit: Yes Qualifiers: Diabetes mellitus type: type 2 (4) Laryngeal stridor Status: Acute Assessment and plan: ENT is reviewed. She has slight paresis of the left vocal cord and a questionable cyst posteriorly. Dr. Nath is to draft roller picker in follow-up today. 02/23/2017 patient appears to have some tracheomalacia which may be the source of her stridor. Current Visit: Yes (5) Respiratory failure Status: Acute Assessment and plan: Patient became quite hypoxemic despite facemask BiPAP. Now on mechanical ventilation. Do think she has got some tracheomalacia playing a part. Current Visit: No Qualifiers: Chronicity: acute Respiratory failure complication: hypoxia Qualified Code(s): J96.01 - Acute respiratory failure with hypoxia
[2017-02-23] MEDS ORDERED: MIDAZOLAM 2 MG/2 ML VIAL IV ONE (05:21)
[2017-02-23] MEDS ORDERED: LIDOCAINE 1% 20 ML VIAL MISC INJ ONE (05:21)
--- NOTE | 2017-02-23 05:29 | Operative Note ---
Date of procedure: 02/23/17 (Fiberoptic bronchoscopy) Pre-op diagnosis: Respiratory failure atelectasis left lung Post-op diagnosis: same (ET tube and right main bronchus, retained secretions on the left) Procedure: After an appropriate timeout to be sure we were dealing with Tiff Albert, the ventilator was already on 100% oxygen. Fiberoptic bronchoscope was introduced through the side arm of the endotracheal tube. The tip of the tube was noted to be in the right bronchus intermedius. It was pulled back under direct vision with a bronchoscope to position 2 cm above the arvin and was resecured. I then advanced the bronchoscope into the left long and removed some retained secretions. There were not a lot there. The bronchoscope was then removed and the patient remained on the ventilator in stable condition Anesthesia: conscious sedation Surgeon / Physician: Chauncey Rocha Estimated blood loss: none Specimens: none sent Condition: stable Disposition: ICU (Actually cc) Results - Labs CBC & BMP: 02/22/17 05:49 02/22/17 05:49 Discharge Plan - Discharge Medications No Action Multivitamin [One Daily] 1 tablet PO QAM Atorvastatin [Lipitor] 40 mg PO BEDTIME Montelukast Tab [Singulair Tab] 10 mg PO BEDTIME Insulin Detemir [Levemir FlexPen] 8 unit SUBCUT 1900 Calcium Acetate 667 mg PO TID W/MEALS Ipratropium/Albuterol Sulfate [Iprat-Albut 0.5-3(2.5) mg/3 ml] 3 ml PO QID PRN PRN Reason: Shortness Of Breath Aspirin EC Tab 162.5 mg PO QAM Amiodarone Tab [Cordarone Tab] 400 mg PO BID #90 tablet Albuterol/Ipratropium Neb [Duoneb] 3 ml RESP TX RT Q6H Clindamycin Inj [Cleocin Inj] 300 mg IV Q8H Famotidine Inj [Pepcid Inj] 20 mg IV Q24H vial Gabapentin Liquid [Neurontin Liquid] 200 mg PO BEDTIME bottle Glucagon 1 mg IM PRN PRN vial PRN Reason: Hypoglycemia w/o IV access Heparin Lock Flush 50 units IV Q12H syringe Insulin Lispro [HumaLOG] See Protocol SUBCUT Q6HR unit levETIRAcetam INJ [Keppra Inj] 500 mg IV Q8H vial Lidocaine 5% Patch [Lidoderm 5% Patch] 1 patch TRANSDERM DAILY patch Metoclopramide Inj [Reglan Inj] 5 mg IV Q6HR vial Ondansetron Inj [Zofran Inj] 4 mg IV Q4H PRN vial PRN Reason: Nausea Phenytoin Inj [Dilantin Inj] 100 mg IV Q8H vial Methocarbamol 750 mg PO BID PRN PRN Reason: MUSCLE SPASMS Fluticasone/Salmeterol 250-50 [Advair 250-50] 1 puff INH QAM Acetaminophen Tab [Tylenol Tab] 650 mg PO Q4H PRN tablet PRN Reason: Fever, Headache, Mild Pain cefTAZidime [Fortaz] 500 mg IV Q12H vial Diltiazem Tab [Cardizem Tab] 90 mg PO TID tablet Docusate Sodium Cap [Colace Cap] 100 mg PO BID PRN capsule PRN Reason: Constipation Epoetin Jeffrey [Epogen] 10,000 unit IV WITH DIALYSIS PRN vial PRN Reason: Dialysis Gabapentin Liquid [Neurontin Liquid] 100 mg NG QAM bottle Heparin Inj 2,000 unit IV .DIALYSIS PRN vial PRN Reason: DIALYSIS Heparin Lock Flush 50 units IV PRN PRN syringe PRN Reason: central line lock LORazepam INJ [Ativan Inj] 1 mg IV Q6H PRN vial PRN Reason: seizures - Follow Up or Referral - Forms/Instructions
[2017-02-23 06:01] LABS: ABG Base Excess 1.9 MMOL/L (-2.5-2.5); ABG HCO3 26.2 MMOL/L (20-26); ABG PCO2 36.5 MM HG (35-48); ABG PH 7.458 (7.35-7.45); ABG TCO2 24.4 MMOL/L (23-27)
[2017-02-23 06:02] LABS: Allen Test Positive; Pt O2 Delivery Device Ventilator
[2017-02-23 06:04] LABS: Hemoglobin 7.2 GM/DL (12.0-16.0); Immature Granulocytes % 1.7 %; Immature Granulocytes Absolute 0.25 #; Lymphocytes # 0.5 10*3/uL (1.4-4.0); Lymphocytes % 3.6 % (21.3-54.2); Mean Corpuscular HGB Conc 34.3 GM/DL (32-36); Mean Corpuscular Hemoglobin 30 PG (27-34); Mean Corpuscular Volume 87.5 FL (87-102); Mean Platelet Volume 10.2 FL (9.6-12.0); Monocytes # 0.9 10*3/uL (0.11-0.8); Monocytes % 6.4 % (1.7-12.7); NRBC # 0.19 10*3/uL; Neutrophils # 12.9 10*3/uL (1.4-7.4); Neutrophils % 88.3 % (38.7-73.9); Platelet Count 134 T/CUMM (130-400); Red Cell Distribution Width 17.6 % (9.3-17.3); White Blood Count 14.6 T/CUMM (4-12)
[2017-02-23 06:22] LABS: Calcium 7.7 MG/DL (8.5-10.1); Osmolality,Calculated 274.2 MOS/KG (273-304); Potassium 3.6 MMOL/L (3.5-5.1)
[2017-02-23 06:24] LABS: Band Neutrophils 1 % (0-10); Lymphocytes 4 % (20-55); Segmented Neutrophils 91 % (50-85); Total Cells Counted 100
[2017-02-23 06:25] LABS: Basophilic Stippling 1+; Hypochromasia 2+; Microcytosis 1+; Polychromasia Slight; Target Cells Slight
[2017-02-23 06:26] LABS: Platelet Estimate Decreased
[2017-02-23] MEDS: INSULIN REGULAR 100 UNIT/ML SUBCUT SCH ×4 (07:30→23:21)
--- NOTE | 2017-02-23 07:45 | XRay Report ---
XR chest 1V portable Indication: Intubation Comparison: 20 February 2017 Findings: There is intubation with the tube tip overlying the right mainstem bronchus. There is increased density and volume loss of the right upper lobe and the entire left lung with mediastinal shift to left. Impression: Right mainstem bronchus intubation with right upper lung and left lung atelectasis. No other acute findings. PROCEDURE INTERPRETED AT [facility] DEPARTMENT OF RADIOLOGY Final Report Signed by: Dr. Kyle Humphreys
--- NOTE | 2017-02-23 07:46 | XRay Report ---
XR chest 1V portable Indication: Intubation, tube repositioning Comparison: 23 February 2017 at 456 Findings: Endotracheal tube is retracted with tip between the arvin and clavicles. There is reexpansion of the right upper lung and left lung. NG tube is been added and appears within normal limits. Impression: Tube repositioning and improved atelectasis when compared to previous. PROCEDURE INTERPRETED AT [facility] DEPARTMENT OF RADIOLOGY Final Report Signed by: Dr. Kyle Humphreys
[2017-02-23] MEDS: CALCIUM ACETATE 667 MG CAPSULE PO SCH ×3 (08:25→16:59)
[2017-02-23] MEDS: FLUTICASONE/SALMETEROL 250-50 DISKUS 14 DOSE INH SCH (08:26)
[2017-02-23] MEDS: PHENYTOIN ER 100 MG CAPSULE PO SCH ×3 (08:51→20:13)
[2017-02-23] MEDS: AMIODARONE 200 MG TABLET PO SCH ×2 (08:51→20:13)
[2017-02-23] MEDS: MULTIVITAMIN (CENTRUM) TABLET PO SCH (08:51)
[2017-02-23] MEDS: levETIRAcetam 500 MG TABLET PO SCH ×3 (08:51→20:13)
[2017-02-23] MEDS: LIDOCAINE 5% PATCH TRANSDERM SCH (08:55)
[2017-02-23] MEDS: NYSTATIN 500,000 UNIT/5 ML UDCUP SWISH/SWAL SCH ×4 (08:56→20:14)
[2017-02-23] MEDS: ASPIRIN 325 MG TABLET PO SCH (10:53)
[2017-02-23] MEDS: PANTOPRAZOLE 40 MG VIAL IV SCH (11:39)
[2017-02-23] MEDS: GABAPENTIN 50 MG/ML 30 ML/BOTTLE NG SCH (11:39)
--- NOTE | 2017-02-23 13:11 | Nephrology Progress Note ---
Nephrology - PN: Subj Interval history: Patient intubated and sedate. Physical exam general the patient is chronically ill-appearing, heart is regular rate and rhythm, she has no pitting edema, lungs are clear to auscultation anteriorly, abdomen is soft with decreased bowel sounds Assessment/plan 1. End-stage renal disease-we will continue hemodialysis support, we dialyze the patient yesterday we will plan on dialysis Wednesday 2. Malnutrition-I am going to start some tube feeds 3. Respiratory failure we will continue vent support Exam (PN)-Nephrology - Vital Signs Vital signs: Period Temp Pulse Resp BP Sys/Gonzalez Pulse Ox Last 24 Hr 96.7 F-98.2 F 68-110 10-32 86-143/44-105 80-100 - Lab 02/23/17 05:25 02/23/17 05:25 Most recent lab results ABG pH 7.458 (7.35-7.45) H 02/23/17 06:00 ABG pCO2 36.5 MM HG (35-48) 02/23/17 06:00 ABG pO2 470.0 MM HG (80-95) H 02/23/17 06:00 ABG HCO3 26.2 MMOL/L (20-26) H 02/23/17 06:00 ABG O2 Saturation 100.0 % (95-100) 02/23/17 06:00 Calcium 7.7 MG/DL (8.5-10.1) L 02/23/17 05:25 Phosphorus 4.1 MG/DL (2.5-4.9) 02/23/17 05:25 Magnesium 2.0 MG/DL (1.8-2.4) 02/23/17 05:25
[2017-02-23] MEDS: METOCLOPRAMIDE 10 MG/2 ML VIAL IV SCH ×2 (13:33→19:04)
[2017-02-23] MEDS: cefTAZidime 500 MG in SODIUM CHLORIDE 0.9% 100 ML IV SCH (13:35)
--- NOTE | 2017-02-23 14:34 | Hospitalist Progress Note ---
Assessment and Plan (1) Acute respiratory failure Status: Acute Assessment and plan: Patient required intubation early this morning. She is being followed by pulmonary. Underwent bronchoscopy for left lung atelectasis and retained secretions. Bronchoscopy and pulmonary notes reviewed. Current Visit: Yes Qualifiers: Respiratory failure complication: hypoxia Qualified Code(s): J96.01 - Acute respiratory failure with hypoxia (2) End stage renal disease on dialysis Status: Chronic Assessment and plan: Continue dialysis Wednesday, , Wednesday. Current Visit: Yes (3) Diabetes mellitus Status: Chronic Current Visit: Yes Qualifiers: Diabetes mellitus type: type 2 (4) Paroxysmal atrial fibrillation Status: Chronic Current Visit: Yes (5) Stridor Status: Acute Assessment and plan: ENT and pulmonary following. This is improving with steroids. Current Visit: Yes Hospitalist: Subjective Interval history: Overnight events noted. Patient required intubation with mechanical ventilation and sedation. She underwent a bronchoscopy this morning. Pulmonary and nephrology following. Start tube feeds today. Exam - Constitutional Vitals: Period Temp Pulse Resp BP Sys/Gonzalez Pulse Ox Last 24 Hr 96.7 F-98.2 F 68-110 10-32 86-137/44-105 80-100 Exam: Constitutional System: No distress. No tremulousness. Intubated and sedated Head: Normocephalic, atraumatic. Ears, Nose and Throat System: No pain or tenderness. No epistaxis or discharge. Endotracheal tube in place. Eyes System: Pupils equal, round, and reactive. Extraocular muscles intact. Neck: Supple, without adenopathy, No jugular venous distention. Respiratory System: Chest clear to auscultation. Cardiovascular System: Heart with regular rate and rhythm. No murmur. GI System: Abdomen soft, nontender. Normo active bowel sounds present. Musculoskeletal System: limbs with no pedal edema. Full distal pulses. Psychiatric System: Unobtainable secondary to patient intubated and sedated - Expanded ENT Exam Mouth exam: Present: moist Throat exam: Present: normal inspection. Absent: tonsillar exudate Results - Labs CBC & BMP: 02/23/17 05:25 02/23/17 05:25 Lab Results: I have reviewed the past 24 hour labs - Diagnostic Findings Procedure: Chest x-ray: image reviewed by me, report reviewed by me
[2017-02-23 14:42] LABS: ABG Base Excess 1.9 MMOL/L (-2.5-2.5); ABG HCO3 26.1 MMOL/L (20-26); ABG Oxygen Saturation 99.9 % (95-100); ABG PCO2 33.1 MM HG (35-48); Allen Test Positive; Pt O2 Delivery Device Ventilator
[2017-02-23] MEDS: ATORVASTATIN 40 MG TABLET PO SCH (20:13)
[2017-02-23] MEDS: MONTELUKAST 10 MG TABLET PO SCH (20:13)
[2017-02-23] MEDS: GABAPENTIN 50 MG/ML 30 ML/BOTTLE PO SCH (20:48)
[2017-02-24] MEDS: methylPREDNISolone SOD SUC 40 MG/1 ML VIAL IV SCH ×3 (00:46→15:24)
[2017-02-24] MEDS: METOCLOPRAMIDE 10 MG/2 ML VIAL IV SCH ×4 (00:46→18:25)
[2017-02-24] MEDS: ALBUTEROL/IPRATROPIUM 3 ML NEB RESP TX SCH ×4 (01:18→19:39)
[2017-02-24] MEDS ORDERED: NOREPINEPHRINE 4 MG/4 ML VIAL IV ONE (02:41)
[2017-02-24] MEDS: NOREPINEPHRINE 8 MG in SODIUM CHLORIDE 0.9% 242 ML IV SCH (02:45)
[2017-02-24] MEDS: PROPOFOL 1,000 MG/100 ML BOTTLE IV SCH ×5 (03:30→23:25)
[2017-02-24 03:39] LABS: ABG Oxygen Saturation 98.7 % (95-100); ABG PCO2 31.6 MM HG (35-48); ABG PH 7.516 (7.35-7.45); ABG PO2 205.5 MM HG (80-95); Allen Test Positive; Pt O2 Delivery Device Ventilator
[2017-02-24 04:53] LABS: Hematocrit 20.2 VOL% (35.7-47.0); Hemoglobin 6.9 GM/DL (12.0-16.0); Immature Granulocytes % 1.5 %; Immature Granulocytes Absolute 0.19 #; Lymphocytes # 0.5 10*3/uL (1.4-4.0); Lymphocytes % 3.8 % (21.3-54.2); Mean Corpuscular HGB Conc 34.2 GM/DL (32-36); Mean Corpuscular Hemoglobin 30 PG (27-34); Mean Corpuscular Volume 87.1 FL (87-102); Mean Platelet Volume 11.2 FL (9.6-12.0); Monocytes # 1.1 10*3/uL (0.11-0.8); Monocytes % 8.5 % (1.7-12.7); NRBC # 0.26 10*3/uL; Neutrophils # 11.1 10*3/uL (1.4-7.4); Neutrophils % 86.2 % (38.7-73.9); Platelet Count 151 T/CUMM (130-400); Red Blood Count 2.32 MC/CUMM (3.8-5.5); White Blood Count 12.8 T/CUMM (4-12)
[2017-02-24 05:18] LABS: Band Neutrophils 3 % (0-10); Lymphocytes 3 % (20-55); Platelet Estimate Normal; Segmented Neutrophils 86 % (50-85); Total Cells Counted 100
[2017-02-24 05:19] LABS: Giant Platelets Few; Hypochromasia 1+; Microcytosis Slight
[2017-02-24 05:30] LABS: Albumin 2.9 G/DL (3.4-5.0); Bilirubin,Total 1.1 MG/DL (0.2-1.0); Osmolality,Calculated 282.7 MOS/KG (273-304); Potassium 3.8 MMOL/L (3.5-5.1); Total Protein 6.2 G/DL (6.4-8.3)
[2017-02-24 05:31] LABS: Magnesium 2.3 MG/DL (1.8-2.4); Phosphorous 3.1 MG/DL (2.5-4.9)
[2017-02-24] MEDS: INSULIN REGULAR 100 UNIT/ML SUBCUT SCH ×4 (05:51→23:44)
--- NOTE | 2017-02-24 06:47 | Pulmonology Progress Note ---
Pulmonary - PN: Subj Interval history: This 61-year-old white female had a recent hospitalization after having a seizure and aspirating. She had a prolonged mechanical ventilation. She was eventually extubated at [facility]. She was taking in pured foods and thickened liquids. She tended to get more short of breath when she was due to have dialysis but usually not after dialysis. Apparently she went to the swing bed after her first dialysis there get short of breath and had some stridor and was moved up here. Neck films have been okay. I bronchoscoped her when she was having some stridor after extubation. She had some mild cord edema at that time and we treated her with racemic epinephrine and steroids and it resolved. She does tend to have upper airway noises when she is short of breath. At present she is on noninvasive mechanical ventilation with a setting of 14/8 and 3 L of oxygen and her oxygen saturation is in the upper 80s. I will increase the oxygen a little. Her chest x-ray actually looked good on the . Will recheck. 02/23/2017 I was called to see the patient 345 this morning. She was hypoxemic despite BiPAP and high flow oxygen. Decision was made to go ahead and intubate her. She has been having some upper airway noises. Patient was a difficult intubation and I got Dr. Hough from the emergency room to assist. He got her intubated with a glide scope. I subsequently bronchoscoped her adjusted tube to be pulled back about 3 cm to where it was 2 cm above the arvin. Cleaned out the left long where there were some bloody secretions. Should note that her upper airway appears to be collapsible as with tracheomalacia. Her arytenoids were markedly swollen which made the intubation somewhat difficult. Will sedate and ventilate. 02/24/2017 patient's x-ray is clear and her ABGs look great. Not doing any CPAP as yet. I do think she is going to require tracheostomy to wean. She has laryngeal edema and tracheomalacia. She has been having some problems with her upper airway ever since she was extubated 3 or 4 weeks ago. We have been using BiPAP on her which should help with the tracheomalacia but apparently not enough. Exam (Progress Note) - Constitutional Vitals: Period Temp Pulse Resp BP Sys/Gonzalez Pulse Ox Last 24 Hr 97.2 F-98.9 F 76-90 12-16 62-140/35-74 81-100 Exam: Patient was drowsy but arousable. Patient is orotracheally intubated and is sedated. Pupils react to light. Neck is supple. Her chest sounds clear. Heart rate is 67. Chest reveals equal breath sounds, no wheezes, no rhonchi. She is not tight. Heart normal rate and rhythm no murmurs. Abdomen soft nontender no masses. Extremities no clubbing cyanosis edema. Calves nontender. Results - Labs CBC & BMP: 02/24/17 04:31 02/24/17 04:31 Lab Results: I have reviewed the past 24 hour labs - Diagnostic Findings Procedure: Chest x-ray: image reviewed by me (Lungs essentially clear. ET tube good position.) Assessment and Plan (1) Chronic renal failure Status: Chronic Assessment and plan: Patient on regular dialysis. Nephrology seen. Tends to get a little ahead on fluid if there is 2 days between dialysis 02/23/2017 patient was dialyzed last night. Still has potassium of 6.1 which may be related to acidosis. 02/04/2017 patient for dialysis today. Current Visit: No (2) COPD (chronic obstructive pulmonary disease) Status: Chronic Assessment and plan: Continuing bronchodilators does not appear to be having an acute exacerbation 02/23/2017 continuing bronchodilators. 02/24/2017 continuing bronchodilators. No active wheezing. Current Visit: No Qualifiers: (3) Diabetes mellitus Status: Chronic Assessment and plan: Blood sugars fairly well controlled. 02/24/2017 blood sugars look good. Current Visit: Yes Qualifiers: Diabetes mellitus type: type 2 (4) Laryngeal stridor Status: Acute Assessment and plan: ENT is reviewed. She has slight paresis of the left vocal cord and a questionable cyst posteriorly. Dr. Nath is to sisal picker in follow-up today. 02/23/2017 patient appears to have some tracheomalacia which may be the source of her stridor. 02/24/2017 status post intubation. With laryngeal edema and tracheomalacia, thicker tracheostomy would be quite helpful. Current Visit: Yes (5) Respiratory failure Status: Acute Assessment and plan: Patient became quite hypoxemic despite facemask BiPAP. Now on mechanical ventilation. Do think she has got some tracheomalacia playing a part. 02/24/2017 ABGs and chest x-ray look good. Start weaning trials. Do not want to extubate her at this point. Will have ENT to see and consider tracheostomy. Current Visit: No Qualifiers: Chronicity: acute Respiratory failure complication: hypoxia Qualified Code(s): J96.01 - Acute respiratory failure with hypoxia
--- NOTE | 2017-02-24 07:41 | XRay Report ---
XR chest 1V portable Indication: Ventilator patient Comparison: 23 February 2017 Findings: The heart and mediastinum are stable in size and configuration. The lines and tubes are unchanged in position. The pulmonary vascularity is improved. No lung infiltrates, effusions, pneumothorax or other abnormality is demonstrated. Impression: Improving pulmonary vascularity. No other significant change. PROCEDURE INTERPRETED AT [facility] DEPARTMENT OF RADIOLOGY Final Report Signed by: Dr. Kyle Humphreys
--- NOTE | 2017-02-24 08:00 | Nephrology Progress Note ---
Nephrology - PN: Subj Interval history: Patient is intubated and sedate. Physical exam general the patient is chronically ill-appearing, heart is regular rate and rhythm, she has no pitting edema, lungs are clear to auscultation anteriorly, abdomen is soft with positive bowel sounds Assessment/plan 1. End-stage renal disease-we will plan on hemodialysis today 2. Respiratory failure-continue ventilator support 3. Anemia-we will transfuse this patient with 2 units packed red blood cells on dialysis. Exam (PN)-Nephrology - Vital Signs Vital signs: Period Temp Pulse Resp BP Sys/Gonzalez Pulse Ox Last 24 Hr 97.2 F-98.9 F 76-91 10-16 62-140/35-74 81-100 - Lab 02/24/17 04:31 02/24/17 04:31 Most recent lab results ABG pH 7.516 (7.35-7.45) H 02/24/17 03:25 ABG pCO2 31.6 MM HG (35-48) L 02/24/17 03:25 ABG pO2 205.5 MM HG (80-95) H 02/24/17 03:25 ABG HCO3 25.0 MMOL/L (20-26) 02/24/17 03:25 ABG O2 Saturation 98.7 % (95-100) 02/24/17 03:25 Calcium 8.0 MG/DL (8.5-10.1) L 02/24/17 04:31 Phosphorus 3.1 MG/DL (2.5-4.9) 02/24/17 04:31 Magnesium 2.3 MG/DL (1.8-2.4) 02/24/17 04:31
[2017-02-24] MEDS: CALCIUM ACETATE 667 MG CAPSULE PO SCH ×3 (09:26→16:41)
[2017-02-24] MEDS: FLUTICASONE/SALMETEROL 250-50 DISKUS 14 DOSE INH SCH (09:27)
[2017-02-24] MEDS: ASPIRIN 325 MG TABLET PO SCH (09:27)
[2017-02-24] MEDS: MULTIVITAMIN (CENTRUM) TABLET PO SCH (09:27)
[2017-02-24] MEDS: levETIRAcetam 500 MG TABLET PO SCH ×3 (09:28→21:36)
[2017-02-24] MEDS: AMIODARONE 200 MG TABLET PO SCH ×2 (09:28→21:35)
[2017-02-24] MEDS: PHENYTOIN ER 100 MG CAPSULE PO SCH ×2 (09:28→15:24)
[2017-02-24] MEDS: LIDOCAINE 5% PATCH TRANSDERM SCH (09:28)
[2017-02-24] MEDS: NYSTATIN 500,000 UNIT/5 ML UDCUP SWISH/SWAL SCH ×4 (09:30→21:38)
[2017-02-24] MEDS: HEPARIN 5,000 UNIT/1 ML VIAL SUBCUT SCH ×2 (09:31→21:38)
[2017-02-24] MEDS: GABAPENTIN 50 MG/ML 30 ML/BOTTLE NG SCH (09:33)
--- NOTE | 2017-02-24 09:41 | Post Interventional Procedure ---
Pre-op diagnosis: ESRD, respiratory failure, no IV access Post-op diagnosis: same Procedure: central venous catheter placement Contrast: none Flouroscopy: none Radiologist: Rojelio Rodas Anesthesia: local Specimens: none sent Estimated blood loss: none Complications: none Condition: stable Description/Findings: Right IJ central venous catheter placement done and ready for use. Assessment and Plan - Time spent with patient Time spent with patient: Less than 30 minutes
--- NOTE | 2017-02-24 09:54 | Ultrasound Report ---
US guide vascular access, XR chest post procedure, IR cvc insert nt >5 Central Line placement using fluoroscopic and ultrasound guidance Ultrasound of the right neck Clinical Information: End stage renal disease, respiratory failure, no iv access Physician[s]: Dr. Rodas Procedure: The patient was advised of the benefits, risks, and alternatives of the procedure and informed consent was obtained. A time out was performed with verification of the patient's name, MRN, site of procedure, and type of procedure to be performed. The patient was positioned in the supine position on the angiographic table. The site was prepped and draped in the usual sterile fashion. Local anesthesia only was used for the procedure. A mechatronics technologist radiograph reveals no relevant abnormality. The neck and anterior chest wall were anesthetized with lidocaine. The right internal jugular vein was accessed using a microintroducer needle via a lateral approach with ultrasound guidance. Ultrasound image capture of vascular access was obtained for the patient's permanent record. A 0.018" cope wire was advanced into the superior vena cava, the needle was removed and a microintroducer sheath was placed. An Amplatz wire was then passed into the inferior vena cava. An incision was made at the puncture site using a scalpel. The tract was serially dilated over the wire. A 7 [place] triple lumen 15 cm Arrow central venous catheter was placed with its tip at the cavoatrial junction. Catheter tip position was confirmed with postprocedural chest radiograph. The ports aspirate and flush freely. The catheter was sutured in place using 3-0 silk and covered with a sterile dressing. The patient tolerated the procedure well and was returned to the PRU in stable condition. EBL: < 5 mL. Complications: None. Total Fluoroscopy Time: 0 minutes. Conclusion: Successful placement of a triple lumen central venous catheter via the right internal jugular vein. The catheter is ready for immediate use. PROCEDURE INTERPRETED AT [facility] DEPARTMENT OF RADIOLOGY Final Report Signed by: Rojelio Rodas
[2017-02-24] MEDS: CLINDAMYCIN INJ 300 MG in PREMIX 1 EACH IV SCH ×2 (10:00→16:42)
[2017-02-24] MEDS: PANTOPRAZOLE 40 MG VIAL IV SCH (11:40)
--- NOTE | 2017-02-24 12:49 | Nephrology Progress Note ---
Nephrology - PN: Subj Interval history: Pt. seen on HD, tolerating well, cont. tx unchanged. Exam (PN)-Nephrology - Vital Signs Vital signs: Period Temp Pulse Resp BP Sys/Gonzalez Pulse Ox Last 24 Hr 97.2 F-98.9 F 10- 10-22 62-140/35-74 81-100 - Lab 02/24/17 04:31 02/24/17 04:31 Most recent lab results ABG pH 7.516 (7.35-7.45) H 02/24/17 03:25 ABG pCO2 31.6 MM HG (35-48) L 02/24/17 03:25 ABG pO2 205.5 MM HG (80-95) H 02/24/17 03:25 ABG HCO3 25.0 MMOL/L (20-26) 02/24/17 03:25 ABG O2 Saturation 98.7 % (95-100) 02/24/17 03:25 Calcium 8.0 MG/DL (8.5-10.1) L 02/24/17 04:31 Phosphorus 3.1 MG/DL (2.5-4.9) 02/24/17 04:31 Magnesium 2.3 MG/DL (1.8-2.4) 02/24/17 04:31
[2017-02-24] MEDS: cefTAZidime 500 MG in SODIUM CHLORIDE 0.9% 100 ML IV SCH (13:36)
--- NOTE | 2017-02-24 13:43 | Hospitalist Progress Note ---
Assessment and Plan (1) Acute respiratory failure Status: Acute Assessment and plan: Patient remains intubated and sedated. she is being followed by pulmonary. Underwent bronchoscopy for left lung atelectasis and retained secretions. Bronchoscopy and pulmonary notes reviewed. Current Visit: Yes Qualifiers: Respiratory failure complication: hypoxia Qualified Code(s): J96.01 - Acute respiratory failure with hypoxia (2) End stage renal disease on dialysis Status: Chronic Assessment and plan: Continue dialysis as scheduled Current Visit: Yes (3) Diabetes mellitus Status: Chronic Current Visit: Yes Qualifiers: Diabetes mellitus type: type 2 (4) Paroxysmal atrial fibrillation Status: Chronic Current Visit: Yes (5) Stridor Status: Acute Assessment and plan: ENT and pulmonary following. She is now intubated Current Visit: Yes Hospitalist: Subjective Interval history: Patient seen and examined. No acute events overnight. Case discussed with nursing staff. Labs reviewed. Remains intubated and sedated. Dialysis planned for today. Exam - Constitutional Vitals: Period Temp Pulse Resp BP Sys/Gonzalez Pulse Ox Last 24 Hr 97.2 F-98.9 F 74-91 10-22 62-142/35-77 81-100 Exam: Constitutional System: No distress. No tremulousness. Intubated and sedated Head: Normocephalic, atraumatic. Ears, Nose and Throat System: No pain or tenderness. No epistaxis or discharge. Endotracheal tube in place. Eyes System: Pupils equal, round, and reactive. Extraocular muscles intact. Neck: Supple, without adenopathy, No jugular venous distention. Respiratory System: Chest clear to auscultation. Cardiovascular System: Heart with regular rate and rhythm. No murmur. GI System: Abdomen soft, nontender. Normo active bowel sounds present. Musculoskeletal System: limbs with no pedal edema. Full distal pulses. Psychiatric System: Unobtainable secondary to patient intubated and sedated - Expanded ENT Exam Mouth exam: Present: moist Throat exam: Present: normal inspection. Absent: tonsillar exudate Results - Labs CBC & BMP: 02/24/17 04:31 02/24/17 04:31 Lab Results: I have reviewed the past 24 hour labs
[2017-02-24] MEDS: ATORVASTATIN 40 MG TABLET PO SCH (21:35)
[2017-02-24] MEDS: MONTELUKAST 10 MG TABLET PO SCH (21:35)
[2017-02-24] MEDS: GABAPENTIN 50 MG/ML 30 ML/BOTTLE PO SCH (21:38)
[2017-02-24] MEDS: PHENYTOIN 100 MG/4 ML UDCUP PO SCH (21:39)
[2017-02-25] MEDS: ALBUTEROL/IPRATROPIUM 3 ML NEB RESP TX SCH ×4 (00:47→19:54)
[2017-02-25] MEDS: methylPREDNISolone SOD SUC 40 MG/1 ML VIAL IV SCH ×3 (00:50→16:02)
[2017-02-25] MEDS: METOCLOPRAMIDE 10 MG/2 ML VIAL IV SCH ×4 (00:52→17:36)
[2017-02-25] MEDS: CLINDAMYCIN INJ 300 MG in PREMIX 1 EACH IV SCH ×3 (02:40→17:44)
[2017-02-25] MEDS: PROPOFOL 1,000 MG/100 ML BOTTLE IV SCH ×3 (04:45→19:40)
[2017-02-25 05:45] LABS: Eosinophils % 0.1 % (0.00-10.9); Hematocrit 25.5 VOL% (35.7-47.0); Hemoglobin 8.5 GM/DL (12.0-16.0); Immature Granulocytes Absolute 0.38 #; Lymphocytes # 0.6 10*3/uL (1.4-4.0); Lymphocytes % 4.8 % (21.3-54.2); Mean Corpuscular HGB Conc 33.3 GM/DL (32-36); Mean Corpuscular Hemoglobin 30 PG (27-34); Mean Corpuscular Volume 89.2 FL (87-102); Mean Platelet Volume 11.3 FL (9.6-12.0); Monocytes % 8.1 % (1.7-12.7); NRBC # 0.09 10*3/uL; Neutrophils # 10.8 10*3/uL (1.4-7.4); Platelet Count 120 T/CUMM (130-400); Red Blood Count 2.86 MC/CUMM (3.8-5.5); Red Cell Distribution Width 17.9 % (9.3-17.3); White Blood Count 12.8 T/CUMM (4-12)
[2017-02-25 06:12] LABS: Calcium 8.3 MG/DL (8.5-10.1); Magnesium 2.3 MG/DL (1.8-2.4); Potassium 3.5 MMOL/L (3.5-5.1)
[2017-02-25 06:36] LABS: Burr Cells Slight; Hypochromasia 1+; Lymphocytes 5 % (20-55); Microcytosis 1+; Myelocytes 1 %; Nucleated Red Blood Cells 1 (0-5); Segmented Neutrophils 86 % (50-85); Total Cells Counted 100
[2017-02-25 06:37] LABS: Platelet Estimate Adequate
[2017-02-25] MEDS: INSULIN REGULAR 100 UNIT/ML SUBCUT SCH ×3 (06:57→17:44)
--- NOTE | 2017-02-25 07:16 | Pulmonology Progress Note ---
Pulmonary - PN: Subj Interval history: This 61-year-old white female had a recent hospitalization after having a seizure and aspirating. She had a prolonged mechanical ventilation. She was eventually extubated at [facility]. She was taking in pured foods and thickened liquids. She tended to get more short of breath when she was due to have dialysis but usually not after dialysis. Apparently she went to the swing bed after her first dialysis there get short of breath and had some stridor and was moved up here. Neck films have been okay. I bronchoscoped her when she was having some stridor after extubation. She had some mild cord edema at that time and we treated her with racemic epinephrine and steroids and it resolved. She does tend to have upper airway noises when she is short of breath. At present she is on noninvasive mechanical ventilation with a setting of 14/8 and 3 L of oxygen and her oxygen saturation is in the upper 80s. I will increase the oxygen a little. Her chest x-ray actually looked good on the . Will recheck. 02/23/2017 I was called to see the patient 345 this morning. She was hypoxemic despite BiPAP and high flow oxygen. Decision was made to go ahead and intubate her. She has been having some upper airway noises. Patient was a difficult intubation and I got Dr. Hough from the emergency room to assist. He got her intubated with a glide scope. I subsequently bronchoscoped her adjusted tube to be pulled back about 3 cm to where it was 2 cm above the arvin. Cleaned out the left long where there were some bloody secretions. Should note that her upper airway appears to be collapsible as with tracheomalacia. Her arytenoids were markedly swollen which made the intubation somewhat difficult. Will sedate and ventilate. 02/24/2017 patient's x-ray is clear and her ABGs look great. Not doing any CPAP as yet. I do think she is going to require tracheostomy to wean. She has laryngeal edema and tracheomalacia. She has been having some problems with her upper airway ever since she was extubated 3 or 4 weeks ago. We have been using BiPAP on her which should help with the tracheomalacia but apparently not enough. 02/25/2017 chest x-ray remains clear. Patient doing some brief CPAP. Liver tests are elevated. Need to get GI to see. I have asked ENT to see her. I think a tracheostomy will be needed for her second episode of respiratory failure and upper airway problems. Exam (Progress Note) - Constitutional Vitals: Period Temp Pulse Resp BP Sys/Gonzalez Pulse Ox Last 24 Hr 96.7 F-98.1 F 63-87 10 86-142/49-87 100-100 Exam: Patient was drowsy but arousable. Patient is orotracheally intubated and is sedated. Pupils react to light. Neck is supple. Her chest sounds clear. Heart rate is 67. Chest reveals equal breath sounds, no wheezes, no rhonchi. She is not tight. Heart normal rate and rhythm no murmurs. Abdomen soft nontender no masses. Extremities no clubbing cyanosis edema. Calves nontender. Little change from yesterday. Results - Labs CBC & BMP: 02/25/17 04:25 02/25/17 05:35 Lab Results: I have reviewed the past 24 hour labs - Diagnostic Findings Procedure: Chest x-ray: image reviewed by me (Lungs are clear. ET tube good position.) Assessment and Plan (1) Chronic renal failure Status: Chronic Assessment and plan: Patient on regular dialysis. Nephrology seen. Tends to get a little ahead on fluid if there is 2 days between dialysis 02/23/2017 patient was dialyzed last night. Still has potassium of 6.1 which may be related to acidosis. 02/24/2017 patient for dialysis today. 02/25/2017 continuing dialysis. Current Visit: No (2) COPD (chronic obstructive pulmonary disease) Status: Chronic Assessment and plan: Continuing bronchodilators does not appear to be having an acute exacerbation 02/23/2017 continuing bronchodilators. 02/24/2017 continuing bronchodilators. No active wheezing. 02/25/2017 continuing bronchodilators. I do not hear any wheezing. Current Visit: No Qualifiers: (3) Diabetes mellitus Status: Chronic Assessment and plan: Blood sugars fairly well controlled. 02/24/2017 blood sugars look good. 02/25/2017 blood sugars around 200. Acceptable Current Visit: Yes Qualifiers: Diabetes mellitus type: type 2 (4) Laryngeal stridor Status: Acute Assessment and plan: ENT is reviewed. She has slight paresis of the left vocal cord and a questionable cyst posteriorly. Dr. Nath is to diamond picker in follow-up today. 02/23/2017 patient appears to have some tracheomalacia which may be the source of her stridor. 02/24/2017 status post intubation. With laryngeal edema and tracheomalacia, thicker tracheostomy would be quite helpful. 02/25/2017 again I think her upper airway noises are mostly related to tracheomalacia. Tracheostomy would be the best route at this point Current Visit: Yes (5) Respiratory failure Status: Acute Assessment and plan: Patient became quite hypoxemic despite facemask BiPAP. Now on mechanical ventilation. Do think she has got some tracheomalacia playing a part. 02/24/2017 ABGs and chest x-ray look good. Start weaning trials. Do not want to extubate her at this point. Will have ENT to see and consider tracheostomy. 02/25/2017 ABGs pending. Not doing CPAP yet. ENT has been consulted Current Visit: No Qualifiers: Chronicity: acute Respiratory failure complication: hypoxia Qualified Code(s): J96.01 - Acute respiratory failure with hypoxia
[2017-02-25 07:18] LABS: ABG Base Excess -3.1 MMOL/L (-2.5-2.5); ABG HCO3 21.8 MMOL/L (20-26); ABG PCO2 38.7 MM HG (35-48); ABG PH 7.362 (7.35-7.45); ABG TCO2 20.4 MMOL/L (23-27)
--- NOTE | 2017-02-25 07:21 | XRay Report ---
Exam: XR chest 1V portable Date: 02/25/2017 6:52 AM Indication: Follow-up ventilator Comparison: 02/24/2017 Technical: AP Findings: Endotracheal tube right IJ dialysis catheter and a nasogastric tube in place. Second catheter is also in placement right-sided approach with both distal tips in the superior vena cava. Minimal alveolar densities present in the lung zuleta without obvious effusions or pneumothorax. The heart is mildly enlarged. Bony structures are otherwise intact. Impression: 1. Stable appearance of life support tubing 2. Minimal alveolar density scattered in the lung zuleta similar to previous exam with a few reticular nodular densities present. 3. Mild cardiac enlargement PROCEDURE INTERPRETED AT [facility] DEPARTMENT OF RADIOLOGY Final Report Signed by: Dr. Guillermo Diaz
--- NOTE | 2017-02-25 08:30 | Hospitalist Progress Note ---
Assessment and Plan (1) Acute respiratory failure Status: Acute Assessment and plan: Patient remains intubated and sedated. she is being followed by pulmonary. Underwent bronchoscopy for left lung atelectasis and retained secretions. Bronchoscopy and pulmonary notes reviewed. Pulmonary feels that a tracheostomy will likely be required. Will get LTAC eval. Current Visit: Yes Qualifiers: Respiratory failure complication: hypoxia Qualified Code(s): J96.01 - Acute respiratory failure with hypoxia (2) End stage renal disease on dialysis Status: Chronic Assessment and plan: Continue dialysis as scheduled Current Visit: Yes (3) Diabetes mellitus Status: Chronic Current Visit: Yes Qualifiers: Diabetes mellitus type: type 2 (4) Paroxysmal atrial fibrillation Status: Chronic Current Visit: Yes (5) Stridor Status: Resolved Assessment and plan: ENT and pulmonary following. She is now intubated Current Visit: Yes (6) Elevated liver function tests Status: Acute Assessment and plan: Consult Dr. Tita CLANCY adult remedial education instructor. Hepatitis panel was negative a few weeks ago. Consider ischemic changes from hypotension requiring pressors. Liver toxic medications have been held including statin. Current Visit: Yes Hospitalist: Subjective Interval history: Patient seen and examined. No acute events overnight. Case discussed with nursing staff. Labs reviewed. Patient underwent dialysis yesterday. Pulmonary note reviewed. Liver function tests are elevated compared to a few days ago during this hospitalization. Hepatitis panel was negative a few weeks ago. Lipitor has been held. Dilantin level is pending. The patient's also on amiodarone. She did have some hypotension and required Levophed. Levophed has been weaned off since early this morning/late last night. Exam - Constitutional Vitals: Period Temp Pulse Resp BP Sys/Gonzalez Pulse Ox Last 24 Hr 96.7 F-98.1 F 63-87 10-23 86-142/53-87 100-100 Exam: Constitutional System: No distress. No tremulousness. Intubated and sedated Head: Normocephalic, atraumatic. Ears, Nose and Throat System: No pain or tenderness. No epistaxis or discharge. Endotracheal tube in place. Eyes System: Pupils equal, round, and reactive. Extraocular muscles intact. Neck: Supple, without adenopathy, No jugular venous distention. Respiratory System: Chest coarse to auscultation. Cardiovascular System: Heart with regular rate and rhythm. No murmur. GI System: Abdomen soft, nontender. Normo active bowel sounds present. Musculoskeletal System: limbs with no pedal edema. Full distal pulses. Psychiatric System: Unobtainable secondary to patient intubated and sedated - Expanded ENT Exam Mouth exam: Present: moist Throat exam: Present: normal inspection. Absent: tonsillar exudate Results - Labs CBC & BMP: 02/25/17 04:25 02/25/17 05:35 Lab Results: I have reviewed the past 24 hour labs - Diagnostic Findings Procedure: Chest x-ray: image reviewed by me, report reviewed by me
[2017-02-25] MEDS: AMIODARONE 200 MG TABLET PO SCH ×2 (09:16→21:27)
[2017-02-25] MEDS: PHENYTOIN 100 MG/4 ML UDCUP PO SCH ×3 (09:16→21:32)
[2017-02-25] MEDS: levETIRAcetam 500 MG TABLET PO SCH ×3 (09:16→21:27)
[2017-02-25] MEDS: MULTIVITAMIN (CENTRUM) TABLET PO SCH (09:16)
[2017-02-25] MEDS: ASPIRIN 325 MG TABLET PO SCH (09:17)
[2017-02-25] MEDS: NYSTATIN 500,000 UNIT/5 ML UDCUP SWISH/SWAL SCH ×4 (09:17→21:31)
[2017-02-25] MEDS: CALCIUM ACETATE 667 MG CAPSULE PO SCH ×3 (09:17→17:38)
[2017-02-25] MEDS: LIDOCAINE 5% PATCH TRANSDERM SCH (09:19)
[2017-02-25] MEDS: FLUTICASONE/SALMETEROL 250-50 DISKUS 14 DOSE INH SCH (09:20)
[2017-02-25] MEDS: HEPARIN 5,000 UNIT/1 ML VIAL SUBCUT SCH ×2 (09:20→21:32)
[2017-02-25] MEDS: GABAPENTIN 50 MG/ML 30 ML/BOTTLE NG SCH (09:40)
--- NOTE | 2017-02-25 09:48 | Nephrology Progress Note ---
Nephrology - PN: Subj Interval history: Pt intubated, sedated, mechanically ventilated. No acute overnight events. Exam (PN)-Nephrology - Vital Signs Vital signs: Period Temp Pulse Resp BP Sys/Gonzalez Pulse Ox Last 24 Hr 96.7 F-98.1 F 63-87 10- 86-142/53-87 100-100 - General Appearance General appearance: chronically ill, sedated on ventilator, intubated EENT: ATNC, PERRL, mucous membranes dry Neck: no JVD, no thyromegaly Respiratory: no kyphosis, clear Cardiology: no murmurs, no rub, no edema Gastrointestinal: normoactive bowel sounds, no tenderness Integumentary: no rash, warm and dry Musculoskeletal: no deformities, no erythema - Lab 02/25/17 04:25 02/25/17 05:35 Most recent lab results ABG pH 7.362 (7.35-7.45) 02/25/17 07:20 ABG pCO2 38.7 MM HG (35-48) 02/25/17 07:20 ABG pO2 122.0 MM HG (80-95) H 02/25/17 07:20 ABG HCO3 21.8 MMOL/L (20-26) 02/25/17 07:20 ABG O2 Saturation 99.0 % (95-100) 02/25/17 07:20 Calcium 8.3 MG/DL (8.5-10.1) L 02/25/17 05:35 Phosphorus 3.1 MG/DL (2.5-4.9) 02/24/17 04:31 Magnesium 2.3 MG/DL (1.8-2.4) 02/25/17 05:35 Assessment and Plan (1) ESRD on dialysis Problem details: No acute indication for HD Status: Chronic Assessment and plan: Fluid restrict to 1L/day. Strict renal diet (low K/PO4). Renally dose all meds for eGFR <10cc/min on dialysis. No need to avoid contrast if indicated. Routine CHD today. Current Visit: No (2) COPD (chronic obstructive pulmonary disease) Status: Chronic Current Visit: No Qualifiers: (3) Chronic atrial fibrillation Status: Chronic Current Visit: No
[2017-02-25] MEDS: PANTOPRAZOLE 40 MG VIAL IV SCH (11:30)
[2017-02-25] MEDS: cefTAZidime 500 MG in SODIUM CHLORIDE 0.9% 100 ML IV SCH (14:38)
[2017-02-25] MEDS: MONTELUKAST 10 MG TABLET PO SCH (21:27)
[2017-02-25] MEDS: GABAPENTIN 50 MG/ML 30 ML/BOTTLE PO SCH (21:32)
--- NOTE | 2017-02-25 22:29 | Gastrointestinal Consult Note ---
History of Present Illness Chief complaint: Elevated liver function tests, principally transaminases post hypotension History of present illness: Ms. Albert is a 61 year old female Home Medications Medication Instructions Recorded Confirmed Type Atorvastatin [Lipitor] 40 mg PO BEDTIME 12/10/15 01/09/17 History Multivitamin [One Daily] 1 tablet PO QAM 12/10/15 01/09/17 History Montelukast Tab [Singulair Tab] 10 mg PO BEDTIME 02/02/16 01/09/17 History Insulin Detemir [Levemir FlexPen] 8 unit SUBCUT 1900 02/24/16 01/09/17 History Calcium Acetate 667 mg PO TID W/MEALS 06/16/16 01/09/17 History Ipratropium/Albuterol Sulfate 3 ml PO QID PRN 06/16/16 01/09/17 History [Iprat-Albut 0.5-3(2.5) mg/3 ml] Methocarbamol 750 mg PO BID PRN 09/26/16 01/09/17 History Fluticasone/Salmeterol 250-50 1 puff INH QAM 10/03/16 01/09/17 History [Advair 250-50] Aspirin EC Tab 162.5 mg PO QAM 11/12/16 01/09/17 History Amiodarone Tab [Cordarone Tab] 400 mg PO BID #90 tablet 12/28/16 01/09/17 Rx Acetaminophen Tab [Tylenol Tab] 650 mg PO Q4H PRN tablet 01/19/17 Rx Albuterol/Ipratropium Neb [Duoneb] 3 ml RESP TX RT Q6H 01/19/17 Rx Clindamycin Inj [Cleocin Inj] 300 mg IV Q8H 01/19/17 Rx Diltiazem Tab [Cardizem Tab] 90 mg PO TID tablet 01/19/17 Rx Docusate Sodium Cap [Colace Cap] 100 mg PO BID PRN capsule 01/19/17 Rx Epoetin Jeffrey [Epogen] 10,000 unit IV WITH DIALYSIS PRN 01/19/17 Rx vial Famotidine Inj [Pepcid Inj] 20 mg IV Q24H vial 01/19/17 Rx Gabapentin Liquid [Neurontin 100 mg NG QAM bottle 01/19/17 Rx Liquid] Gabapentin Liquid [Neurontin 200 mg PO BEDTIME bottle 01/19/17 Rx Liquid] Glucagon 1 mg IM PRN PRN vial 01/19/17 Rx Heparin Inj 2,000 unit IV .DIALYSIS PRN vial 01/19/17 Rx Heparin Lock Flush 50 units IV PRN PRN syringe 01/19/17 Rx Heparin Lock Flush 50 units IV Q12H syringe 01/19/17 Rx Insulin Lispro [HumaLOG] See Protocol SUBCUT Q6HR unit 01/19/17 Rx LORazepam INJ [Ativan Inj] 1 mg IV Q6H PRN vial 01/19/17 Rx Lidocaine 5% Patch [Lidoderm 5% 1 patch TRANSDERM DAILY patch 01/19/17 Rx Patch] Metoclopramide Inj [Reglan Inj] 5 mg IV Q6HR vial 01/19/17 Rx Ondansetron Inj [Zofran Inj] 4 mg IV Q4H PRN vial 01/19/17 Rx Phenytoin Inj [Dilantin Inj] 100 mg IV Q8H vial 01/19/17 Rx cefTAZidime [Fortaz] 500 mg IV Q12H vial 01/19/17 Rx levETIRAcetam INJ [Keppra Inj] 500 mg IV Q8H vial 01/19/17 Rx Allergies Allergy/AdvReac Type Severity Reaction Status Date / Time codeine Allergy Severe Swelling Verified 04/12/16 19:35 of Lip/Tongue/Throat morphine AdvReac Intermediate Abdominal Verified 04/12/16 19:35 Pain olmesartan [From Benicar] AdvReac Unknown/Unable Verified 09/26/16 11:22 to obtain venlafaxine [From Effexor] AdvReac Abdominal Verified 09/26/16 11:22 Pain Medical,Surgical,& Family Hx - Medical History Cardio: History of: Cardiac Dysrhythmia (A-FIB), CHF, Hypertension No history of: CAD, VT, Pacemaker, PVD Psychological: History of: Anxiety Disorders, Depression Neurology: History of: Migraine No history of: Seizures, TIA HEENT: History of: Eye Problem (GLASSES/CATARCTS), HEENT Problems (SINUSITIS/ ALLERGIES, OSAS) Endocrine: History of: Diabetes Mellitus (IDDM), Diabetes Mellitus (NIDDM), Dyslipidemia Respiratory: History of: Asthma, Bronchitis, COPD, Obstructive Sleep Apnea ( doesnt wear cpap), Respiratory Problems ([facility]. [facility]) No history of: Pulmonary Embolism Renal: History of: Dialysis (Tues, Thurs, Sat), Renal Failure, Renal Problems ( [facility]) Gastrointestinal: History of: GERD No history of: Hepatitis Musculoskeletal: History of: Back/Neck Problems Hematology: History of: Anemia No history of: Blood Transfusion Reaction Other: No history of: Anesthesia Reactions, Cancer - Surgical History Cardiac Surgeries: Patient Denies: Cardiac Catheterization, Vascular Access Devices Neurologic Surgeries: Patient denies: Neurologic Surgery HEENT Surgeries: Surgical HX of: Eye Surgery (FOR CATARACT LT 03/05/15) Reproductive Surgeries: Surgical HX of;: Section (X1), Hysterectomy ( WITH BSO), Tubal Ligation Orthopedic Surgeries: Surgical HX of;: Orthopedic Surgery (RIGHT KNEE SURG), Spinal Surgery ( BACK SURGERY) - Family History Family History: Reports;: Family Diabetes (MOTHER () and brother), Family Heart Disease (GRANDPARENTS/PARENTS), Family Hypertension (PARENTS), Family Stroke (sister) - Social History Smoking Status: Former smoker Frequency of Alcohol Use: None Type of Drug Use: None Exam - Constitutional Vitals: Period Temp Pulse Resp BP Sys/Gonzalez Pulse Ox Last 24 Hr 96.7 F-97.3 F 63-96 10-26 86-132/49-73 100-100 Results - Labs CBC & BMP: 02/25/17 04:25 02/25/17 05:35
--- NOTE | 2017-02-25 22:42 | Gastrointestinal Consult Note ---
Assessment and Plan (1) Ischemic hepatitis Status: Acute Assessment and plan: This patient's liver function tests were essentially normal back on 02/20/17 before she suffered an acute event at 3:45 in the morning on 02/24/17--this was combined hypotension and hypoxemia which likely produced an ischemic event in the liver resulting in the elevations noted shortly thereafter. I do not believe this can be helpful to look for evidence of hepatitis B and C, autoimmune hepatitis etc. in this particular patient with an acute event. I will have radiology check the liver for acute vascular changes and look for ascites as well as masses within the liver. Will need to follow the patient's liver function tests serially over time, I suspect the liver function tests were peak in the next 24-48 hours and then start improving thereafter, provided it has not been completely compromised. Supportive care is all that is required at this point, improving oxygenation to the liver and whatever way possible he is through blood support or adequate mechanical ventilation. Will follow with you. Current Visit: Yes History of Present Illness Chief complaint: Elevated transaminases in a patient with recent hypotension/ hypoxia History of present illness: Ms. Albert is a 61 year old female who had a history of has a history of seizure disorder and aspiration recurrent who has been having some difficulty with her respiratory status requiring multiple intubations, the patient recently had an episode of hypotension and hypoxemia requiring the help of Dr. Rocha from pulmonary and Dr. Hough from the emergency room to intubate the patient. There was a requirement for Levophed afterwards when a blood pressure of 62/35 was documented. There is some concern the patient may have tracheomalacia that appears to be failing BiPAP. The patient's hematocrit was also dropped down to 20.2 about the same time although her white count appears to be adequate around her usual range between 12 and 16. The patient at this point appears somewhat fluid overloaded with periorbital edema and swelling of her hands, mentally she is able to follow some commands. She does have bowel sounds. Liver function tests were taken on 02/21/12--in these initial lab value showed a AST of 21, ALT of 35, alkaline phosphatase 271, and a bilirubin of 0.5--shortly after the incident at 4: 31 a.m. on 02/24/17 her AST had increased to 688 with an ALT of 541 but an alkaline phosphatase that was slightly better at 251 and total bilirubin 1.1. This represents ischemic hepatitis. I suspect these numbers will peak in the next 24-48 hours and improve over the next 3-5 days. Will obtain a liver ultrasound with Doppler of the vessels as well to make sure these are patent, but I do not feel that an extensive workup for other types of hepatitis is warranted here, unless she fails to improve. We were able to answer some simple questions, she does not appear to be having any abdominal pain, she is not hungry. Home Medications Medication Instructions Recorded Confirmed Type Atorvastatin [Lipitor] 40 mg PO BEDTIME 12/10/15 01/09/17 History Multivitamin [One Daily] 1 tablet PO QAM 12/10/15 01/09/17 History Montelukast Tab [Singulair Tab] 10 mg PO BEDTIME 02/02/16 01/09/17 History Insulin Detemir [Levemir FlexPen] 8 unit SUBCUT 1900 02/24/16 01/09/17 History Calcium Acetate 667 mg PO TID W/MEALS 06/16/16 01/09/17 History Ipratropium/Albuterol Sulfate 3 ml PO QID PRN 06/16/16 01/09/17 History [Iprat-Albut 0.5-3(2.5) mg/3 ml] Methocarbamol 750 mg PO BID PRN 09/26/16 01/09/17 History Fluticasone/Salmeterol 250-50 1 puff INH QAM 10/03/16 01/09/17 History [Advair 250-50] Aspirin EC Tab 162.5 mg PO QAM 11/12/16 01/09/17 History Amiodarone Tab [Cordarone Tab] 400 mg PO BID #90 tablet 12/28/16 01/09/17 Rx Acetaminophen Tab [Tylenol Tab] 650 mg PO Q4H PRN tablet 01/19/17 Rx Albuterol/Ipratropium Neb [Duoneb] 3 ml RESP TX RT Q6H 01/19/17 Rx Clindamycin Inj [Cleocin Inj] 300 mg IV Q8H 01/19/17 Rx Diltiazem Tab [Cardizem Tab] 90 mg PO TID tablet 01/19/17 Rx Docusate Sodium Cap [Colace Cap] 100 mg PO BID PRN capsule 01/19/17 Rx Epoetin Jeffrey [Epogen] 10,000 unit IV WITH DIALYSIS PRN 01/19/17 Rx vial Famotidine Inj [Pepcid Inj] 20 mg IV Q24H vial 01/19/17 Rx Gabapentin Liquid [Neurontin 100 mg NG QAM bottle 01/19/17 Rx Liquid] Gabapentin Liquid [Neurontin 200 mg PO BEDTIME bottle 01/19/17 Rx Liquid] Glucagon 1 mg IM PRN PRN vial 01/19/17 Rx Heparin Inj 2,000 unit IV .DIALYSIS PRN vial 01/19/17 Rx Heparin Lock Flush 50 units IV PRN PRN syringe 01/19/17 Rx Heparin Lock Flush 50 units IV Q12H syringe 01/19/17 Rx Insulin Lispro [HumaLOG] See Protocol SUBCUT Q6HR unit 01/19/17 Rx LORazepam INJ [Ativan Inj] 1 mg IV Q6H PRN vial 01/19/17 Rx Lidocaine 5% Patch [Lidoderm 5% 1 patch TRANSDERM DAILY patch 01/19/17 Rx Patch] Metoclopramide Inj [Reglan Inj] 5 mg IV Q6HR vial 01/19/17 Rx Ondansetron Inj [Zofran Inj] 4 mg IV Q4H PRN vial 01/19/17 Rx Phenytoin Inj [Dilantin Inj] 100 mg IV Q8H vial 01/19/17 Rx cefTAZidime [Fortaz] 500 mg IV Q12H vial 01/19/17 Rx levETIRAcetam INJ [Keppra Inj] 500 mg IV Q8H vial 01/19/17 Rx Allergies Allergy/AdvReac Type Severity Reaction Status Date / Time codeine Allergy Severe Swelling Verified 04/12/16 19:35 of Lip/Tongue/Throat morphine AdvReac Intermediate Abdominal Verified 04/12/16 19:35 Pain olmesartan [From Benicar] AdvReac Unknown/Unable Verified 09/26/16 11:22 to obtain venlafaxine [From Effexor] AdvReac Abdominal Verified 09/26/16 11:22 Pain Medical,Surgical,& Family Hx - Medical History Cardio: History of: Cardiac Dysrhythmia (A-FIB), CHF, Hypertension No history of: CAD, VA, Pacemaker, PVD Psychological: History of: Anxiety Disorders, Depression Neurology: History of: Migraine No history of: Seizures, TIA HEENT: History of: Eye Problem (GLASSES/CATARCTS), HEENT Problems (SINUSITIS/ ALLERGIES, OSAS) Endocrine: History of: Diabetes Mellitus (IDDM), Diabetes Mellitus (NIDDM), Dyslipidemia Respiratory: History of: Asthma, Bronchitis, COPD, Obstructive Sleep Apnea ( doesnt wear cpap), Respiratory Problems (DR. SALAZAR AT [place]) No history of: Pulmonary Embolism Renal: History of: Dialysis (, , Wed), Renal Failure, Renal Problems ( [facility]) Gastrointestinal: History of: GERD No history of: Hepatitis Musculoskeletal: History of: Back/Neck Problems Hematology: History of: Anemia No history of: Blood Transfusion Reaction Other: No history of: Anesthesia Reactions, Cancer - Surgical History Cardiac Surgeries: Patient Denies: Cardiac Catheterization, Vascular Access Devices Neurologic Surgeries: Patient denies: Neurologic Surgery HEENT Surgeries: Surgical HX of: Eye Surgery (FOR CATARACT LT 03/05/15) Reproductive Surgeries: Surgical HX of;: Section (X1), Hysterectomy ( WITH BSO), Tubal Ligation Orthopedic Surgeries: Surgical HX of;: Orthopedic Surgery (RIGHT KNEE SURG), Spinal Surgery ( BACK SURGERY) - Family History Family History: Reports;: Family Diabetes (MOTHER () and brother), Family Heart Disease (GRANDPARENTS/PARENTS), Family Hypertension (PARENTS), Family Stroke (sister) - Social History Smoking Status: Former smoker Frequency of Alcohol Use: None Type of Drug Use: None ROS unobtainable: due to endotracheal tube Exam - Constitutional Vitals: Period Temp Pulse Resp BP Sys/Gonzalez Pulse Ox Last 24 Hr 96.7 F-97.3 F 63-96 10-26 86-132/49-73 100-100 General appearance: no acute distress - Head Head exam: Present: normocephalic, atraumatic - Eye Eye exam: Present: EOMI, periorbital swelling. Absent: scleral icterus Pupils: Present: JOSE - Respiratory Respiratory exam: Present: clear to auscultation bilaterally, other (The patient is intubated and unable to talk, she can answer some simple questions with head movements). Absent: rhonchi, stridor, wheezes - Cardiovascular Cardiovascular exam: Present: regular rate and rhythm - GI/Abdominal GI/Abdominal exam: Present: hypoactive bowel sounds, soft. Absent: distended, guarding, tenderness, rebound - Extremities Exam Extremities exam: Present: edema (Particularly in the dorsums of her hands) - Neurological Exam Neurological exam: Present: alert, oriented X3, other (The patient can respond to commands such as "squeeze my hand") - Psychiatric Psychiatric exam: Present: flat affect - Skin Skin exam: Present: warm Results - Labs CBC & BMP: 02/25/17 04:25 02/25/17 05:35
[2017-02-26] MEDS: INSULIN REGULAR 100 UNIT/ML SUBCUT SCH ×4 (00:55→19:11)
[2017-02-26] MEDS: methylPREDNISolone SOD SUC 40 MG/1 ML VIAL IV SCH ×3 (00:55→18:35)
[2017-02-26] MEDS: METOCLOPRAMIDE 10 MG/2 ML VIAL IV SCH ×5 (00:57→23:45)
[2017-02-26] MEDS: ALBUTEROL/IPRATROPIUM 3 ML NEB RESP TX SCH ×4 (01:19→19:53)
[2017-02-26] MEDS: CLINDAMYCIN INJ 300 MG in PREMIX 1 EACH IV SCH ×3 (02:50→19:17)
[2017-02-26 04:09] LABS: ABG Base Excess -4.6 MMOL/L (-2.5-2.5); ABG HCO3 20.3 MMOL/L (20-26); ABG Oxygen Saturation 97.8 % (95-100); ABG PCO2 36.9 MM HG (35-48); ABG PH 7.359 (7.35-7.45); ABG PO2 114.1 MM HG (80-95); ABG TCO2 21.5 MMOL/L (23-27); Allen Test Positive; Pt O2 Delivery Device Ventilator
[2017-02-26 05:31] LABS: Albumin 2.6 G/DL (3.4-5.0); Calcium 8.9 MG/DL (8.5-10.1); Osmolality,Calculated 287.2 MOS/KG (273-304); Potassium 3.6 MMOL/L (3.5-5.1); Total Protein 5.8 G/DL (6.4-8.3)
[2017-02-26 05:32] LABS: Albumin 2.7 G/DL (3.4-5.0); Bilirubin,Direct 0.5 MG/DL (0.0-0.20); Bilirubin,Indirect 0.7 MG/DL (0.0-1.0); Bilirubin,Total 1.2 MG/DL (0.2-1.0); Total Protein 5.8 G/DL (6.4-8.3)
--- NOTE | 2017-02-26 06:00 | Pulmonology Progress Note ---
Pulmonary - PN: Subj Interval history: This 61-year-old white female had a recent hospitalization after having a seizure and aspirating. She had a prolonged mechanical ventilation. She was eventually extubated at [facility]. She was taking in pured foods and thickened liquids. She tended to get more short of breath when she was due to have dialysis but usually not after dialysis. Apparently she went to the swing bed after her first dialysis there get short of breath and had some stridor and was moved up here. Neck films have been okay. I bronchoscoped her when she was having some stridor after extubation. She had some mild cord edema at that time and we treated her with racemic epinephrine and steroids and it resolved. She does tend to have upper airway noises when she is short of breath. At present she is on noninvasive mechanical ventilation with a setting of 14/8 and 3 L of oxygen and her oxygen saturation is in the upper 80s. I will increase the oxygen a little. Her chest x-ray actually looked good on the . Will recheck. 02/23/2017 I was called to see the patient 345 this morning. She was hypoxemic despite BiPAP and high flow oxygen. Decision was made to go ahead and intubate her. She has been having some upper airway noises. Patient was a difficult intubation and I got Dr. Hough from the emergency room to assist. He got her intubated with a glide scope. I subsequently bronchoscoped her adjusted tube to be pulled back about 3 cm to where it was 2 cm above the arvin. Cleaned out the left long where there were some bloody secretions. Should note that her upper airway appears to be collapsible as with tracheomalacia. Her arytenoids were markedly swollen which made the intubation somewhat difficult. Will sedate and ventilate. 02/24/2017 patient's x-ray is clear and her ABGs look great. Not doing any CPAP as yet. I do think she is going to require tracheostomy to wean. She has laryngeal edema and tracheomalacia. She has been having some problems with her upper airway ever since she was extubated 3 or 4 weeks ago. We have been using BiPAP on her which should help with the tracheomalacia but apparently not enough. 02/25/2017 chest x-ray remains clear. Patient doing some brief CPAP. Liver tests are elevated. Need to get GI to see. I have asked ENT to see her. I think a tracheostomy will be needed for her second episode of respiratory failure and upper airway problems. 02/26/2017 patient has developed some swelling in her eyes and tone. I would be concerned about an allergic reaction. Reviewing her medications, Fortaz and Dilantin would be the top two most likely problems. Defer to primary service and neurology on changing those. Cultures have been negative. Patient is also on Keppra for seizures. She is not on JAHAIRA inhibitors. I have asked ENT to see her to do tracheostomy. She may not require this long-term. However I do think she has tracheomalacia and that if we extubate her now she is very likely to require reintubation in the near future. The tracheostomy will facilitate weaning from the ventilator. Exam (Progress Note) - Constitutional Vitals: Period Temp Pulse Resp BP Sys/Gonzalez Pulse Ox Last 24 Hr 96.6 F-97.3 F 61-96 10-26 86-132/48-73 100-100 Exam: Patient was drowsy but arousable. Eyelids are swollen, tongue slightly swollen and prominent. Patient is orotracheally intubated and is sedated. Pupils react to light. Neck is supple. Her chest sounds clear. Heart rate is 67. Chest reveals equal breath sounds, no wheezes, no rhonchi. She is not tight. Heart normal rate and rhythm no murmurs. Abdomen soft nontender no masses. Extremities no clubbing cyanosis edema. Calves nontender. Results - Labs CBC & BMP: 02/25/17 04:25 02/26/17 04:47 Lab Results: I have reviewed the past 24 hour labs - Diagnostic Findings Procedure: Chest x-ray: image reviewed by me (Patchy bilateral infiltrates. ET tube very close to the arvin needs to come up about 2 cm.) Assessment and Plan (1) Chronic renal failure Status: Chronic Assessment and plan: Patient on regular dialysis. Nephrology seen. Tends to get a little ahead on fluid if there is 2 days between dialysis 02/23/2017 patient was dialyzed last night. Still has potassium of 6.1 which may be related to acidosis. 02/24/2017 patient for dialysis today. 02/25/2017 continuing dialysis. 02/26/2017 continuing with dialysis. Current Visit: No (2) COPD (chronic obstructive pulmonary disease) Status: Chronic Assessment and plan: Continuing bronchodilators does not appear to be having an acute exacerbation 02/23/2017 continuing bronchodilators. 02/24/2017 continuing bronchodilators. No active wheezing. 02/25/2017 continuing bronchodilators. I do not hear any wheezing. 02/26/2017 no active bronchospasm. Current Visit: No Qualifiers: (3) Diabetes mellitus Status: Chronic Assessment and plan: Blood sugars fairly well controlled. 02/24/2017 blood sugars look good. 02/25/2017 blood sugars around 200. Acceptable 02/26/2017 glucoses in 200s patient is on steroids Current Visit: Yes Qualifiers: Diabetes mellitus type: type 2 (4) Laryngeal stridor Status: Acute Assessment and plan: ENT is reviewed. She has slight paresis of the left vocal cord and a questionable cyst posteriorly. 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 02/23/2017 patient appears to have some tracheomalacia which may be the source of her stridor. 02/24/2017 status post intubation. With laryngeal edema and tracheomalacia, thicker tracheostomy would be quite helpful. 02/25/2017 again I think her upper airway noises are mostly related to tracheomalacia. Tracheostomy would be the best route at this point 02/26/2017 in addition to the above she has developed some swelling in her tongue and eyes and some of this could be an allergic type reaction. I would suggest holding Dilantin and/or Fortaz and replacing them. Defer to primary care and neurologist on those. Current Visit: Yes (5) Respiratory failure Status: Acute Assessment and plan: Patient became quite hypoxemic despite facemask BiPAP. Now on mechanical ventilation. Do think she has got some tracheomalacia playing a part. 02/24/2017 ABGs and chest x-ray look good. Start weaning trials. Do not want to extubate her at this point. Will have ENT to see and consider tracheostomy. 02/25/2017 ABGs pending. Not doing CPAP yet. ENT has been consulted 02/26/2017 tolerating CPAP Current Visit: No Qualifiers: Chronicity: acute Respiratory failure complication: hypoxia Qualified Code(s): J96.01 - Acute respiratory failure with hypoxia
--- NOTE | 2017-02-26 06:57 | Gastrointestinal Progress Note ---
Assessment and Plan (1) Ischemic hepatitis Status: Acute Assessment and plan: This patient's liver function tests were essentially normal back on 02/20/17 before she suffered an acute event at 3:45 in the morning on 02/24/17--this was combined hypotension and hypoxemia which likely produced an ischemic event in the liver resulting in the elevations noted shortly thereafter. I do not believe this can be helpful to look for evidence of hepatitis B and C, autoimmune hepatitis etc. in this particular patient with an acute event. I will have radiology check the liver for acute vascular changes and look for ascites as well as masses within the liver. Will need to follow the patient's liver function tests serially over time, I suspect the liver function tests were peak in the next 24-48 hours and then start improving thereafter, provided it has not been completely compromised. Supportive care is all that is required at this point, improving oxygenation to the liver and whatever way possible he is through blood support or adequate mechanical ventilation. Will follow with you. 02/26/17--The patient's transaminases appear to be peaking today. I expect these will come down significantly in the next 2 days. We are awaiting the abdominal ultrasound and Dopplers look of vascular flow through the liver. I suspect that these should look fairly normal, if this was simply a hypoxic event to the liver. I note that the kidney function is elevated as well as one might expect with a systemic hypoxic event Current Visit: Yes (2) Dysphagia Status: Acute Assessment and plan: Patient is intubated at present and may eventually need a PEG tube placement if she cannot be adequately weaned from the ventilator. NG tube in place and feedings are being tolerated present. Current Visit: Yes Gastroenterology - PN: Subj Interval history: The patient's enzymes are likely repeated today and start to improve tomorrow. Currently LFTs show a AST of 512 down from 688, and ALT is 738 about the same as yesterday's up from 2 days ago and this was 541, alkaline phosphatase is down slightly from 251-->227. The Dobbhoff residuals have been only about 5 per shift however the patient is being fed at 25 mL/h. She appears to be tolerating this well. Exam (Progress Note) - Constitutional Vitals: Period Temp Pulse Resp BP Sys/Gonzalez Pulse Ox Last 24 Hr 96.6 F-97.3 F 61-96 10- 86-132/48-73 100-100 General appearance: no acute distress - Head Head exam: Present: normocephalic - Eye Eye exam: Present: EOMI, other (Patient is tearing at present) - ENT ENT exam: Present: other (ET tube in place) - Respiratory Respiratory exam: Present: clear to auscultation bilaterally - GI/Abdominal GI/Abdominal exam: Present: normal bowel sounds, soft. Absent: distended, guarding, tenderness - Neurological Exam Neurological exam: Present: alert, other (Unable to assess with ET tube in place , can follow handgrip commands) - Psychiatric Psychiatric exam: Present: depressed - Skin Skin exam: Present: warm Results - Labs CBC & BMP: 02/25/17 04:25 02/26/17 04:47
--- NOTE | 2017-02-26 07:08 | XRay Report ---
Exam: XR chest 1V portable Date: 02/26/2017 4:00 AM Indication: Follow-up ventilator respiratory failure and dialysis patient Comparison: 02/25/2017 Technical:AP Findings: A right-sided IJ dialysis catheter is present. A second catheter is also present from a right-sided approach in the superior vena cava right atrial junction endotracheal tube is at the level of the arvin. Nasogastric tube is present. Patchy infiltrates are present in the lung zuleta bilaterally in the perihilar regions extending into the basilar regions. No pneumothorax. Impression: 1. Stable appearance of life support tubing 2. Slight progressive infiltrates in the lung zuleta bilaterally 3. Cardiomegaly and tiny low volume effusion suspected on the left PROCEDURE INTERPRETED AT [facility] DEPARTMENT OF RADIOLOGY Final Report Signed by: Dr. Guillermo Diaz
[2017-02-26] MEDS: ALBUTEROL/IPRATROPIUM 3 ML NEB RESP TX PRN (07:19)
[2017-02-26] MEDS ORDERED: DEXTROSE 50% 25 GM/50 ML SYRINGE IV PRN (08:30)
--- NOTE | 2017-02-26 09:40 | Ultrasound Report ---
Exam: US abdomen Date:02/26/2017 7:30 AM Indication: Elevated transaminase question mast ascites Comparison: 01/11/2017 Findings: Liver: 15.3 cm. There is a 19 x 14 x 15 mm mass present in the right hepatic lobe with faint increase echogenicity. The hepatic and portal veins are otherwise patent. Gallbladder: Normal size and shape without stones. Anterior mandujano 4.5 mm CBD: 6 mm Pancreas: Normal size shape and configuration without focal abnormality. Kidneys Right kidney: 8.2 x 5.5 x 4.5 cm. No hydronephrosis perinephric fluid collections or focal mass. Left kidney: 8.7 x 4.0 x 3.9 cm. No hydronephrosis perinephric fluid collections or focal mass Aorta IVC: Atherosclerotic plaque in the aorta. IVC is patent. Spleen: 8.3 x 4.5 x 3.8 cm. Ascites: None Impression: 1. Small hemangioma in the right hepatic lobe that appears similar to previous examination. 2. Atherosclerotic plaque in the aorta without aneurysmal dilatation Ultrasound images were stored and captured The Ultrasound images were captured and stored. PROCEDURE INTERPRETED AT [facility] DEPARTMENT OF RADIOLOGY Final Report Signed by: Dr. Guillermo Diaz
[2017-02-26] MEDS: PROPOFOL 1,000 MG/100 ML BOTTLE IV SCH (10:05)
[2017-02-26] MEDS ORDERED: HEPARIN 10,000 UNIT/10 ML VIAL IV PRN (10:07)
[2017-02-26] MEDS: FLUTICASONE/SALMETEROL 250-50 DISKUS 14 DOSE INH SCH (10:45)
[2017-02-26] MEDS: CALCIUM ACETATE 667 MG CAPSULE PO SCH ×2 (10:45→18:21)
[2017-02-26] MEDS: ASPIRIN 325 MG TABLET PO SCH (10:45)
[2017-02-26] MEDS: MULTIVITAMIN (CENTRUM) TABLET PO SCH (10:46)
[2017-02-26] MEDS: PHENYTOIN 100 MG/4 ML UDCUP PO SCH (10:46)
[2017-02-26] MEDS: AMIODARONE 200 MG TABLET PO SCH ×2 (10:46→22:07)
[2017-02-26] MEDS: HEPARIN 5,000 UNIT/1 ML VIAL SUBCUT SCH ×2 (10:47→22:07)
[2017-02-26] MEDS ORDERED: LIDOCAINE 1%/EPI INJ 20 ML VIAL ONE (10:51)
[2017-02-26] MEDS: PANTOPRAZOLE 40 MG VIAL IV SCH (10:53)
--- NOTE | 2017-02-26 10:53 | Dialysis Note ---
Dialysis Note - Dialysis Note S: Pt seen on dialysis. She is alert and waves to me. She is scheduled for tracheostomy today after HD. O: VSS A: ESRD on CHD. Tolerating without complications at this time. P: Next scheduled routine CHD on Wednesday.
[2017-02-26] MEDS: levETIRAcetam 500 MG TABLET PO SCH (10:59)
[2017-02-26] MEDS: LIDOCAINE 5% PATCH TRANSDERM SCH (10:59)
[2017-02-26] MEDS: NYSTATIN 500,000 UNIT/5 ML UDCUP SWISH/SWAL SCH ×4 (10:59→22:30)
[2017-02-26] MEDS: GABAPENTIN 50 MG/ML 30 ML/BOTTLE NG SCH (10:59)
--- NOTE | 2017-02-26 11:19 | Ultrasound Report ---
Exam: US abd doppler limited Date: 02/26/2017 7:30 AM Indication: Acute hepatic ischemia evaluate vascular flow Comparison: None Findings: The IVC is patent. The proximal portal vein has blood flow 13 cm/s The middle hepatic vein is 13 cm/s. The right hepatic vein is 13.5 cm/s the left hepatic vein is 18.2 cm/s The aorta measures approximately 34 cm/s proximally and mid aorta is 23 cm/s. The distal aorta is 38 cm per sec. The splenic artery is 65 cm/s. The hepatic artery is approximately 30 cm/s. The celiac trunk has blood flow at 36 cm/s. The SMA and MAYELA are not visualized. Renal arteries are not evaluated. The gastric artery has blood flow at 59 cm/s. Normal spectral wave analysis and normal color flow present within the vessels evaluated. Impression: 1. Normal arterial and venous flow within the liver without elevated velocities or evidence of stenosis or thrombus present. 2. Nonvisualization SMA and MAYELA 3. The remaining vascular structures imaged appear intact PROCEDURE INTERPRETED AT [facility] DEPARTMENT OF RADIOLOGY Final Report Signed by: Dr. Guillermo Diaz
--- NOTE | 2017-02-26 12:37 | Operative Note ---
Date of procedure: 02/26/17 Procedure: PRE-DIAGNOSES: Dependence on respirator/ventilator, Ventilator status Respiratory failure, Chronic; with hypoxia POST-DIAGNOSES: Dependence on respirator/ventilator, Ventilator status Respiratory failure, Chronic; with hypoxia PROCEDURES: Tracheostomy Type: Planned Sterile Technique(s): Large Sterile Drape; Gloves; Cap; Gown; Small Drape; Mask/Eye Shield Prep: Chlorhexidine Securing Method: Suture FINDINGS: Midline trach in normal anatomical position TECHNIQUE: After appropriate informed consent was signed and placed on the chart patient was taken back to the operative theater where timeout was performed to verify the correct patient with correct procedure. Patient was transferred to the operative table where anesthesia performed general anesthesia with endotracheal tube that was already in place from transfer unit. Patient was sterilely prepped and draped. The patient's trachea was palpated and a midline planned incision was drawn out and infiltrated with a total of 5 mL of 1% lidocaine with 1:100,000 epinephrine. Bovie cautery on a setting of 20 spray was used to cut and coagulate midline in a vertical direction in the preplanned incision through the subcutaneous fat and dissecting the strap muscles in the midline. The incision was then held open with Army-Bee retractors and digital palpation was used to confirm the trachea. A cricoid hook was placed and used to hold the trachea midline while the intersection between the second and third tracheal rings were prepared for incision. A 15 blade scalpel was used to incise the between the second and third tracheal rings. A tracheal dilator was used to dilate the trachea. The patient's endotracheal tube was slowly removed under direct visualization and a #8 cuffed Shiley tracheostomy tube with an inner cannula was placed under direct visualization. The tracheostomy tube was sutured in place with 4 quadrant 2-0 nylon sutures in a simple interrupted fashion. A drain sponge was placed around the trach tube. FloSeal was injected into the tracheostomy site to provide any additional hemostasis. The trach was then held in place with a trach tie. An endoscope was used to visualize the trachea through the tracheostomy. This confirmed good placement of the trach with the arvin approximately 1-2 cm inferior to the end of the trach. The trach did not blind end in to the tracheal sidewall there were no lesions lacerations and no evidence of active hemorrhage. All instrumentation was removed and the patient was then transferred back to. Anesthesia: ÓSCARA Surgeon / Physician: Getachew Nath Estimated blood loss: minimal Specimens: none sent Condition: stable Disposition: ICU Results - Labs CBC & BMP: 02/25/17 04:25 02/26/17 04:47 Discharge Plan - Discharge Medications No Action Multivitamin [One Daily] 1 tablet PO QAM Atorvastatin [Lipitor] 40 mg PO BEDTIME Montelukast Tab [Singulair Tab] 10 mg PO BEDTIME Insulin Detemir [Levemir FlexPen] 8 unit SUBCUT 1900 Calcium Acetate 667 mg PO TID W/MEALS Ipratropium/Albuterol Sulfate [Iprat-Albut 0.5-3(2.5) mg/3 ml] 3 ml PO QID PRN PRN Reason: Shortness Of Breath Aspirin EC Tab 162.5 mg PO QAM Amiodarone Tab [Cordarone Tab] 400 mg PO BID #90 tablet Albuterol/Ipratropium Neb [Duoneb] 3 ml RESP TX RT Q6H Clindamycin Inj [Cleocin Inj] 300 mg IV Q8H Famotidine Inj [Pepcid Inj] 20 mg IV Q24H vial Gabapentin Liquid [Neurontin Liquid] 200 mg PO BEDTIME bottle Glucagon 1 mg IM PRN PRN vial PRN Reason: Hypoglycemia w/o IV access Heparin Lock Flush 50 units IV Q12H syringe Insulin Lispro [HumaLOG] See Protocol SUBCUT Q6HR unit levETIRAcetam INJ [Keppra Inj] 500 mg IV Q8H vial Lidocaine 5% Patch [Lidoderm 5% Patch] 1 patch TRANSDERM DAILY patch Metoclopramide Inj [Reglan Inj] 5 mg IV Q6HR vial Ondansetron Inj [Zofran Inj] 4 mg IV Q4H PRN vial PRN Reason: Nausea Phenytoin Inj [Dilantin Inj] 100 mg IV Q8H vial Methocarbamol 750 mg PO BID PRN PRN Reason: MUSCLE SPASMS Fluticasone/Salmeterol 250-50 [Advair 250-50] 1 puff INH QAM Acetaminophen Tab [Tylenol Tab] 650 mg PO Q4H PRN tablet PRN Reason: Fever, Headache, Mild Pain cefTAZidime [Fortaz] 500 mg IV Q12H vial Diltiazem Tab [Cardizem Tab] 90 mg PO TID tablet Docusate Sodium Cap [Colace Cap] 100 mg PO BID PRN capsule PRN Reason: Constipation Epoetin Jeffrey [Epogen] 10,000 unit IV WITH DIALYSIS PRN vial PRN Reason: Dialysis Gabapentin Liquid [Neurontin Liquid] 100 mg NG QAM bottle Heparin Inj 2,000 unit IV .DIALYSIS PRN vial PRN Reason: DIALYSIS Heparin Lock Flush 50 units IV PRN PRN syringe PRN Reason: central line lock LORazepam INJ [Ativan Inj] 1 mg IV Q6H PRN vial PRN Reason: seizures - Follow Up or Referral - Forms/Instructions
[2017-02-26] MEDS ORDERED: SEVOFLURANE 1 UNIT/15 MINUTE INH ONE (12:41)
[2017-02-26] MEDS ORDERED: VECURONIUM 10 MG VIAL IV ONE (12:42)
[2017-02-26] MEDS ORDERED: MIDAZOLAM 2 MG/2 ML VIAL ONE (12:42)
--- NOTE | 2017-02-26 15:04 | Hospitalist Progress Note ---
Hospitalist: Subjective Interval history: 61-year-old female with respiratory failure. She underwent a tracheostomy today by ENT. Exam - Constitutional Vitals: Period Temp Pulse Resp BP Sys/Gonzalez Pulse Ox Last 24 Hr 96.6 F-97.3 F 61-81 10-20 86-126/48-85 100-100 Exam: Constitutional System: No distress. No tremulousness. Intubated and sedated Head: Normocephalic, atraumatic. Ears, Nose and Throat System: No pain or tenderness. No epistaxis or discharge. Endotracheal tube in place. Eyes System: Pupils equal, round, and reactive. Eyelids slightly swollen Neck: Supple, without adenopathy, No jugular venous distention. Throat: Tongue mildly swollen Respiratory System: Occasional rhonchi Cardiovascular System: Heart with regular rate and rhythm. No murmur. GI System: Abdomen soft, nontender. Normo active bowel sounds present. Musculoskeletal System: limbs with no pedal edema. Full distal pulses. Psychiatric System: Unobtainable secondary to patient intubated and sedated - Expanded ENT Exam Mouth exam: Present: moist Throat exam: Present: normal inspection. Absent: tonsillar exudate Results - Labs CBC & BMP: 02/25/17 04:25 02/26/17 04:47 - Impressions Assessment and Plan (1) Acute hypoxemic respiratory failure Status: Acute Assessment and plan: Patient remains intubated and sedated, she is being followed by pulmonary. Pt underwent a Tracheostomy today by ENT Service. Current Visit: Yes Qualifiers: Respiratory failure complication: hypoxia Qualified Code(s): J96.01 - Acute respiratory failure with hypoxia (2) End stage renal disease on dialysis Status: Chronic Assessment and plan: Continue dialysis as scheduled Current Visit: Yes (3) Diabetes mellitus Status: Chronic Current Visit: Yes Qualifiers: Diabetes mellitus type: type 2 (4) Paroxysmal atrial fibrillation Status: Chronic Current Visit: Yes (5) Stridor Status: Resolved Assessment and plan: ENT and pulmonary following. She is now intubated Current Visit: Yes (6) Elevated liver function tests/Ischemic Hepatitis Status: Acute Assessment and plan: Dr. Tita CLANCY following. Hepatitis panel was negative a few weeks ago. Consider ischemic changes from hypotension requiring pressors. Liver toxic medications have been held including statin. Current Visit: Yes (7) Seizure disorder Status: chronic Switch to IV Keppra, held Dilantin per pulmonology recommendation, will consult Neurology for opinion regarding alternative meds (8) COPD (chronic obstructive pulmonary disease) Status: Chronic Current Visit: No (9) Dysphagia Status: Acute Assessment and plan: Patient is intubated at present and may eventually need a PEG tube placement if she cannot be adequately weaned from the ventilator. NG tube in place and feedings are being tolerated present. Current Visit: Yes Discharge plan: LTAC
[2017-02-26] MEDS: MONTELUKAST 10 MG TABLET PO SCH (22:07)
[2017-02-26] MEDS: GABAPENTIN 50 MG/ML 30 ML/BOTTLE PO SCH (22:30)
[2017-02-27] MEDS: ALBUTEROL/IPRATROPIUM 3 ML NEB RESP TX SCH ×4 (00:57→19:27)
[2017-02-27] MEDS: methylPREDNISolone SOD SUC 40 MG/1 ML VIAL IV SCH ×3 (01:09→16:45)
[2017-02-27] MEDS: INSULIN REGULAR 100 UNIT/ML SUBCUT SCH ×4 (01:09→18:25)
[2017-02-27] MEDS: CLINDAMYCIN INJ 300 MG in PREMIX 1 EACH IV SCH ×3 (01:12→18:33)
[2017-02-27] MEDS: PROPOFOL 1,000 MG/100 ML BOTTLE IV SCH ×2 (01:14→18:46)
[2017-02-27 07:13] LABS: Albumin 2.7 G/DL (3.4-5.0); Bilirubin,Direct 0.5 MG/DL (0.0-0.20); Bilirubin,Indirect 0.3 MG/DL (0.0-1.0); Bilirubin,Total 0.8 MG/DL (0.2-1.0); Total Protein 6.1 G/DL (6.4-8.3)
[2017-02-27] MEDS: METOCLOPRAMIDE 10 MG/2 ML VIAL IV SCH ×3 (07:18→18:39)
--- NOTE | 2017-02-27 08:12 | Hospitalist Progress Note ---
Assessment and Plan - Time spent with patient Time spent with patient: Less than 30 minutes (1) Acute respiratory failure Status: Acute Assessment and plan: Patient underwent tracheostomy yesterday. She continues with mechanical ventilation. Pulmonary is following and assisting with her care. Continuing IV corticosteroids and bronchodilators. She continues to receive enteral feedings for nutritional support and DVT prophylaxis. Current Visit: Yes Qualifiers: Respiratory failure complication: hypoxia Qualified Code(s): J96.01 - Acute respiratory failure with hypoxia (2) End stage renal disease on dialysis Status: Chronic Assessment and plan: Patient has been followed by nephrology and continues to undergo hemodialysis. Current Visit: Yes (3) Ischemic hepatitis Status: Acute Assessment and plan: Liver function studies improving. [place] to be secondary to ischemic hepatitis. Abdominal ultrasound and abdominal arterial study have been noted. GI is following. Current Visit: Yes (4) Diabetes mellitus Status: Chronic Assessment and plan: Blood sugars fairly well controlled. Continue current regimen. Current Visit: No Qualifiers: Diabetes mellitus type: type 2 Chronic kidney disease stage: on chronic dialysis (5) Seizure Status: Chronic Assessment and plan: Patient has a history of seizure disorder. It was felt that she may be having a reaction to Dilantin which was discontinued and she is now being maintained on IV Keppra. Current Visit: No Hospitalist: Subjective Interval history: Chart is been reviewed and patient examined. She underwent tracheostomy yesterday and remains mechanically ventilated. She is sedated but does open her eyes to verbal stimuli. Exam - Constitutional Vitals: Period Temp Pulse Resp BP Sys/Gonzalez Pulse Ox Last 24 Hr 96.8 F-99.1 F 62-81 10-20 76-126/47-85 97-100 General appearance: no acute distress - Head Head exam: Present: normocephalic, atraumatic - Eye Eye exam: Present: EOMI Pupils: Present: JOSE - ENT ENT exam: Present: other (Tracheostomy) - Expanded ENT Exam Mouth exam: Present: moist Throat exam: Present: normal inspection. Absent: tonsillar exudate - Respiratory Respiratory exam: Present: clear to auscultation bilaterally. Absent: rales, rhonchi, wheezes - Cardiovascular Cardiovascular exam: Present: regular rate and rhythm. Absent: JVD, systolic murmur, tachycardia - GI/Abdominal GI/Abdominal exam: Present: normal bowel sounds, soft. Absent: mass, tenderness - Extremities Exam Extremities exam: Absent: calf tenderness, edema - Neurological Exam Neurological exam: Present: other (Sedated but arousable, opens eyes and moves extremities to tactile stimuli) - Skin Skin exam: Present: warm, dry. Absent: erythema Results - Labs CBC & BMP: 02/25/17 04:25 02/26/17 04:47 Lab Results: I have reviewed the past 24 hour labs - Diagnostic Findings Procedure: Chest x-ray: image reviewed by me
--- NOTE | 2017-02-27 08:55 | XRay Report ---
XR chest 1V portable Indication: Ventilator Comparison: Chest x-ray 02/26/2017 Technique: Portable AP chest was performed. Findings: Multiple tubes and medical support devices appear stable. Interval partial clearing of the perihilar lung parenchyma as well as interval decrease in prominence of central vasculature suggests improving volume overload improving congestive heart failure and pulmonary edema. Chest is otherwise stable. Impression: 1. Improvement in the lung parenchyma is present suggesting improving volume overload or congestive heart failure with pulmonary edema. 02/27/2017 8:51 AM PROCEDURE INTERPRETED AT [facility] DEPARTMENT OF RADIOLOGY Final Report Signed by: Dr. Mike Hough
[2017-02-27] MEDS: MULTIVITAMIN (CENTRUM) TABLET PO SCH (09:23)
[2017-02-27] MEDS: CALCIUM ACETATE 667 MG CAPSULE PO SCH ×3 (09:24→18:33)
[2017-02-27] MEDS: AMIODARONE 200 MG TABLET PO SCH ×2 (09:25→21:36)
[2017-02-27] MEDS: ASPIRIN 325 MG TABLET PO SCH (09:27)
[2017-02-27] MEDS: HEPARIN 5,000 UNIT/1 ML VIAL SUBCUT SCH ×2 (09:27→21:36)
[2017-02-27] MEDS: NYSTATIN 500,000 UNIT/5 ML UDCUP SWISH/SWAL SCH ×4 (09:29→21:35)
[2017-02-27] MEDS: GABAPENTIN 50 MG/ML 30 ML/BOTTLE NG SCH (09:30)
[2017-02-27] MEDS: LIDOCAINE 5% PATCH TRANSDERM SCH (09:31)
--- NOTE | 2017-02-27 10:36 | Nephrology Progress Note ---
Nephrology - PN: Subj Interval history: She remains on the ventilator. She had tracheostomy placed yesterday. She is alert and appears comfortable. Exam (PN)-Nephrology - Vital Signs Vital signs: Period Temp Pulse Resp BP Sys/Gonzalez Pulse Ox Last 24 Hr 96.8 F-99.1 F 62-81 10-20 76-126/47-85 97-100 Exam: Gen.: Alert. On ventilator ENT: Pupils equal round reactive to light. Neck: Supple. No JVD or bruit. Tracheostomy present Cardiovascular: Regular rate and rhythm. No murmur rub or gallop Lungs: Clear Abdomen: Soft. Nontender. Positive bowel sounds. No organomegaly Extremities: Trace edema - Lab 02/25/17 04:25 02/26/17 04:47 Most recent lab results ABG pH 7.359 (7.35-7.45) 02/26/17 04:00 ABG pCO2 36.9 MM HG (35-48) 02/26/17 04:00 ABG pO2 114.1 MM HG (80-95) H 02/26/17 04:00 ABG HCO3 20.3 MMOL/L (20-26) 02/26/17 04:00 ABG O2 Saturation 97.8 % (95-100) 02/26/17 04:00 Calcium 8.9 MG/DL (8.5-10.1) 02/26/17 04:47 Phosphorus 3.1 MG/DL (2.5-4.9) 02/24/17 04:31 Magnesium 2.3 MG/DL (1.8-2.4) 02/25/17 05:35 Assessment and Plan (1) End stage renal disease on dialysis Status: Chronic Assessment and plan: 61-year-old woman with: * ESRD. She dialyzed yesterday * Ventilatory failure. Tracheostomy placed yesterday * Ischemic hepatitis * Diabetes mellitus * Hypertension * Seizure disorder Current Visit: Yes (2) Ischemic hepatitis Status: Acute Current Visit: Yes (3) Seizure disorder Status: Acute Current Visit: Yes (4) Diabetes mellitus Status: Chronic Current Visit: Yes Qualifiers: Diabetes mellitus type: type 2 (5) Respiratory failure Status: Acute Current Visit: No Qualifiers: Chronicity: acute Respiratory failure complication: hypoxia Qualified Code(s): J96.01 - Acute respiratory failure with hypoxia
--- NOTE | 2017-02-27 10:38 | Pulmonology Progress Note ---
Pulmonary - PN: Subj Interval history: This is a 61-year-old female that I previously saw at [facility]. She was then hospitalized to [facility] and after leaving [facility] she is back with respiratory failure. 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 She had a trach placed on 02/26/2017. She also had dialysis on 02/26/2017. This patient will be started on weaning protocol at level 3 which is where she was prior to her surgery. She will probably go back to [facility] around Wednesday we can continue her weaning process. Even though it is a weekend in physical therapy is not available I have initiated physical therapy protocol to be in compliance. This patient's had some swelling of her tongues and eyes and Dr. Rocha is been concerned about an allergic process but is not sure exactly what it is. Pharmacology is been consulted. This patient is on seizure medications. Dilantin would be a candidate for her rash as would Fortaz which is her antibiotic Chest x-ray 02/27/2017. No heart failure. No infiltrates per Microbiology. No positive cultures. Lab transaminases are elevated. These have improved over time. Physical exam. Vital signs. See below Face. Symmetrical with swelling of the tongue and lips Neck. No meningismus. Trachea is in place Chest. Loose large airway congestion Heart. No gallop Abdomen. Nondistended. A few bowel sounds are present Extremities. Nothing to suggest deep venous thrombophlebitis Neurologic. Cranial nerves are grossly intact the patient has some movement in all 4 extremities The remainder of the physical exam is negative Plan. 1. Protocols as above. 2. Stage III weaning protocol 3. Probable transfer to long-term acute care on Wednesday. Exam (Progress Note) - Constitutional Vitals: Period Temp Pulse Resp BP Sys/Gonzalez Pulse Ox Last 24 Hr 96.8 F-99.1 F 62-81 10-20 76-126/47-85 97-100 Results - Labs CBC & BMP: 02/25/17 04:25 02/26/17 04:47
--- NOTE | 2017-02-27 11:09 | Gastrointestinal Progress Note ---
Assessment and Plan (1) Ischemic hepatitis Status: Acute Assessment and plan: This patient's liver function tests were essentially normal back on 02/20/17 before she suffered an acute event at 3:45 in the morning on 02/24/17--this was combined hypotension and hypoxemia which likely produced an ischemic event in the liver resulting in the elevations noted shortly thereafter. I do not believe this can be helpful to look for evidence of hepatitis B and C, autoimmune hepatitis etc. in this particular patient with an acute event. I will have radiology check the liver for acute vascular changes and look for ascites as well as masses within the liver. Will need to follow the patient's liver function tests serially over time, I suspect the liver function tests were peak in the next 24-48 hours and then start improving thereafter, provided it has not been completely compromised. Supportive care is all that is required at this point, improving oxygenation to the liver and whatever way possible he is through blood support or adequate mechanical ventilation. Will follow with you. 02/26/17--The patient's transaminases appear to be peaking today. I expect these will come down significantly in the next 2 days. We are awaiting the abdominal ultrasound and Dopplers look of vascular flow through the liver. I suspect that these should look fairly normal, if this was simply a hypoxic event to the liver. I note that the kidney function is elevated as well as one might expect with a systemic hypoxic event 02/27/17--AST is now down from 512-->397, ALT is also improved from 738-->707, alkaline phosphatase is increased slightly from 227-254 and the bilirubin is now down to 0.8 from 1.0 yesterday. The alkaline phosphatase is usually the last to improve over time. I am confident this was an ischemic hepatitis event. I will be signing off at this time. No other workup is necessary simple supportive care should suffice over time. Current Visit: Yes (2) Dysphagia Status: Acute Assessment and plan: Patient is intubated at present and may eventually need a PEG tube placement if she cannot be adequately weaned from the ventilator. NG tube in place and feedings are being tolerated present. 02/27/17--the patient is tolerating her NG tube feedings well. She is due to go to [facility] very shortly. If she fails to wean from the ventilator she may require PEG tube placement at some point in the future. Please let me know when and if this occurs, I will certainly be happy to place a feeding tube in order to remove the NG tube at some point in the future. Thank you for the opportunity see this very pleasant patient I will be signing off at this time. Current Visit: Yes Gastroenterology - PN: Subj Interval history: Tracheostomy in place, patient has no complaints, she has not had a bowel movement yet but does not wish to have any laxatives. She is getting fed through NG tube and residuals have been low. I have not yet been approached to place a PEG tube but we could do this at any time in the future here, or at [facility] if she feels her ventilate wean. Exam (Progress Note) - Constitutional Vitals: Period Temp Pulse Resp BP Sys/Gonzalez Pulse Ox Last 24 Hr 96.8 F-99.1 F 62-80 10-20 76-126/47-75 97-100 General appearance: no acute distress - Head Head exam: Present: normocephalic - Eye Eye exam: Present: EOMI - ENT ENT exam: Present: other (New trach) - Respiratory Respiratory exam: Present: clear to auscultation bilaterally - Cardiovascular Cardiovascular exam: Present: regular rate and rhythm - GI/Abdominal GI/Abdominal exam: Present: normal bowel sounds, soft. Absent: distended, guarding, tenderness, rebound - Neurological Exam Neurological exam: Present: alert, oriented X3 - Skin Skin exam: Present: warm Results - Labs CBC & BMP: 02/25/17 04:25 02/26/17 04:47
[2017-02-27] MEDS: cefTAZidime 500 MG in SODIUM CHLORIDE 0.9% 100 ML IV SCH (12:14)
[2017-02-27] MEDS: NOREPINEPHRINE 8 MG in SODIUM CHLORIDE 0.9% 242 ML IV SCH (12:15)
[2017-02-27] MEDS: PHENYTOIN ER 100 MG CAPSULE PO SCH (12:21)
[2017-02-27] MEDS: FLUTICASONE/SALMETEROL 250-50 DISKUS 14 DOSE INH SCH (12:42)
[2017-02-27] MEDS: PANTOPRAZOLE 40 MG VIAL IV SCH (12:54)
[2017-02-27] MEDS: GABAPENTIN 50 MG/ML 30 ML/BOTTLE PO SCH (21:36)
[2017-02-27] MEDS: MONTELUKAST 10 MG TABLET PO SCH (21:36)
[2017-02-28] MEDS: ALBUTEROL/IPRATROPIUM 3 ML NEB RESP TX SCH ×4 (00:24→19:32)
[2017-02-28] MEDS: INSULIN REGULAR 100 UNIT/ML SUBCUT SCH ×4 (00:37→18:22)
[2017-02-28] MEDS: methylPREDNISolone SOD SUC 40 MG/1 ML VIAL IV SCH ×3 (00:40→16:29)
[2017-02-28] MEDS: METOCLOPRAMIDE 10 MG/2 ML VIAL IV SCH ×4 (00:41→18:29)
[2017-02-28] MEDS: CLINDAMYCIN INJ 300 MG in PREMIX 1 EACH IV SCH ×3 (01:00→18:26)
[2017-02-28 04:57] LABS: Basophils % 0.1 % (0.0-0.8); Eosinophils % 0.1 % (0.00-10.9); Hematocrit 26.4 VOL% (35.7-47.0); Hemoglobin 8.9 GM/DL (12.0-16.0); Immature Granulocytes % 6.1 %; Immature Granulocytes Absolute 1.02 #; Lymphocytes # 0.7 10*3/uL (1.4-4.0); Lymphocytes % 4.3 % (21.3-54.2); Mean Corpuscular HGB Conc 33.7 GM/DL (32-36); Mean Corpuscular Hemoglobin 30 PG (27-34); Mean Corpuscular Volume 89.8 FL (87-102); Monocytes # 1.3 10*3/uL (0.11-0.8); Monocytes % 7.6 % (1.7-12.7); NRBC # 0.06 10*3/uL; Neutrophils # 13.6 10*3/uL (1.4-7.4); Neutrophils % 81.8 % (38.7-73.9); Platelet Count 140 T/CUMM (130-400); Red Blood Count 2.94 MC/CUMM (3.8-5.5); Red Cell Distribution Width 18.1 % (9.3-17.3); White Blood Count 16.7 T/CUMM (4-12)
[2017-02-28 05:32] LABS: Albumin 2.6 G/DL (3.4-5.0); Bilirubin,Direct 0.4 MG/DL (0.0-0.20); Bilirubin,Indirect 0.2 MG/DL (0.0-1.0); Bilirubin,Total 0.6 MG/DL (0.2-1.0); Total Protein 6.1 G/DL (6.4-8.3)
[2017-02-28 06:02] LABS: Band Neutrophils 1 % (0-10); Lymphocytes 9 % (20-55); Myelocytes 2 %; Promyelocytes 2 %; Segmented Neutrophils 82 % (50-85); Total Cells Counted 100
[2017-02-28 06:03] LABS: Anisocytosis 1+; Platelet Estimate Adequate
--- NOTE | 2017-02-28 08:23 | Hospitalist Progress Note ---
Assessment and Plan - Time spent with patient Time spent with patient: Less than 30 minutes (1) Acute respiratory failure Status: Acute Assessment and plan: 02/27/17: Patient underwent tracheostomy yesterday. She continues with mechanical ventilation. Pulmonary is following and assisting with her care. Continuing IV corticosteroids and bronchodilators. She continues to receive enteral feedings for nutritional support and DVT prophylaxis. 02/28/17: She is status post tracheostomy and continues with mechanical ventilation. Pulmonary is following and assisting with her care. We are continuing IV corticosteroid and bronchodilator therapy at this time. Current Visit: Yes Qualifiers: Respiratory failure complication: hypoxia Qualified Code(s): J96.01 - Acute respiratory failure with hypoxia (2) End stage renal disease on dialysis Status: Chronic Assessment and plan: Patient has been followed by nephrology and continues to undergo hemodialysis. Current Visit: Yes (3) Ischemic hepatitis Status: Acute Assessment and plan: 02/27/17: Liver function studies improving. [place] to be secondary to ischemic hepatitis. Abdominal ultrasound and abdominal arterial study have been noted. GI is following. 02/28/17: Liver function studies continued to improve and this is felt to be secondary to ischemic hepatitis. GI has evaluated and now signed off. We will continue to follow. Current Visit: Yes (4) Diabetes mellitus Status: Chronic Assessment and plan: Blood sugars fairly well controlled. Continue to optimize therapy. Current Visit: No Qualifiers: Diabetes mellitus type: type 2 Chronic kidney disease stage: on chronic dialysis (5) Seizure Status: Chronic Assessment and plan: Patient has a history of seizure disorder. It was felt that she may be having a reaction to Dilantin which was discontinued and she is now being maintained on IV Keppra. No seizure activity noted. Current Visit: No Hospitalist: Subjective Interval history: Ms. Albert is doing well. She underwent tracheostomy on Wednesday and remains mechanically ventilated. She is mildly sedated but does open her eyes and obey simple commands. She has no complaints of pain at this time. Exam - Constitutional Vitals: Period Temp Pulse Resp BP Sys/Gonzalez Pulse Ox Last 24 Hr 96.8 F-97.8 F 62-75 10-21 89-162/49-63 98-100 General appearance: no acute distress - Head Head exam: Present: normocephalic, atraumatic - Eye Eye exam: Present: EOMI Pupils: Present: JOSE - ENT ENT exam: Present: other (Tracheostomy) - Expanded ENT Exam Mouth exam: Present: moist Throat exam: Present: normal inspection. Absent: tonsillar exudate - Respiratory Respiratory exam: Present: clear to auscultation bilaterally. Absent: rales, rhonchi, wheezes - Cardiovascular Cardiovascular exam: Present: regular rate and rhythm. Absent: systolic murmur , tachycardia - GI/Abdominal GI/Abdominal exam: Present: normal bowel sounds, soft. Absent: mass, tenderness , rebound - Extremities Exam Extremities exam: Absent: calf tenderness, edema - Back Exam Back exam: Present: normal inspection - Neurological Exam Neurological exam: Present: alert, oriented X3, CN II-XII intact. Absent: motor sensory deficit - Psychiatric Psychiatric exam: Present: normal affect, normal mood. Absent: agitated, anxious - Skin Skin exam: Present: warm, dry. Absent: erythema Results - Labs CBC & BMP: 02/28/17 04:20 02/26/17 04:47 Lab Results: I have reviewed the past 24 hour labs
[2017-02-28] MEDS: LIDOCAINE 5% PATCH TRANSDERM SCH (08:56)
--- NOTE | 2017-02-28 09:33 | Pulmonology Progress Note ---
Pulmonary - PN: Subj Interval history: This is a 61-year-old female that I previously saw at [facility]. She was then hospitalized to [facility] and after leaving [facility] she is back with respiratory failure. 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 She had a trach placed on 02/26/2017. She also had dialysis on 02/26/2017. This patient will be started on weaning protocol at level 3 which is where she was prior to her surgery. She will probably go back to [facility] around Wednesday we can continue her weaning process. Even though it is a weekend in physical therapy is not available I have initiated physical therapy protocol to be in compliance. This patient's had some swelling of her tongues and eyes and Dr. Rocha is been concerned about an allergic process but is not sure exactly what it is. Pharmacology is been consulted. This patient is on seizure medications. Dilantin would be a candidate for her rash as would Fortaz which is her antibiotic Chest x-ray 02/27/2017. No heart failure. No infiltrates per Microbiology. No positive cultures. Lab transaminases are elevated. These have improved over time. 02/28/2017. Patient did not have a chest x-ray today. She was able to do 9 hours on stage III of the weaning protocol on 02/27/2017. CBC is stable. White count is 16,700. Glucoses are under fair control. Patient will probably go to [facility] tomorrow. She had a stable night and she seems improved. Physical exam. Vital signs. See below Face. Symmetrical with swelling of the tongue and lips Neck. No meningismus. Trachea is in place Chest. Loose large airway congestion Heart. No gallop Abdomen. Nondistended. A few bowel sounds are present Extremities. Nothing to suggest deep venous thrombophlebitis Neurologic. Cranial nerves are grossly intact the patient has some movement in all 4 extremities The remainder of the physical exam is negative Plan. 02/27/2017 1. Protocols as above. 2. Stage III weaning protocol 3. Probable transfer to long-term acute care on Wednesday. 02/28/2017. 1. Weaning protocol and physical therapy protocol 2. Chest x-ray and ABGs in the morning Exam (Progress Note) - Constitutional Vitals: Period Temp Pulse Resp BP Sys/Gonzalez Pulse Ox Last 24 Hr 96.8 F-97.8 F 62-75 10- 89-162/49-63 98-100 Results - Labs CBC & BMP: 02/28/17 04:20 02/26/17 04:47
[2017-02-28] MEDS: AMIODARONE 200 MG TABLET PO SCH ×2 (09:35→22:00)
[2017-02-28] MEDS: MULTIVITAMIN (CENTRUM) TABLET PO SCH (09:35)
[2017-02-28] MEDS: CALCIUM ACETATE 667 MG CAPSULE PO SCH ×3 (09:36→18:21)
[2017-02-28] MEDS: ASPIRIN 325 MG TABLET PO SCH (09:36)
[2017-02-28] MEDS: HEPARIN 5,000 UNIT/1 ML VIAL SUBCUT SCH ×2 (09:37→22:01)
[2017-02-28] MEDS: NYSTATIN 500,000 UNIT/5 ML UDCUP SWISH/SWAL SCH ×4 (09:45→22:01)
[2017-02-28] MEDS: GABAPENTIN 50 MG/ML 30 ML/BOTTLE NG SCH (09:46)
[2017-02-28] MEDS: PANTOPRAZOLE 40 MG VIAL IV SCH (12:39)
--- NOTE | 2017-02-28 13:57 | Nephrology Progress Note ---
Nephrology - PN: Subj Interval history: She remains on the ventilator. Blood pressure is stable. She appears comfortable Exam (PN)-Nephrology - Vital Signs Vital signs: Period Temp Pulse Resp BP Sys/Gonzalez Pulse Ox Last 24 Hr 96.8 F-97.8 F 62-75 10-26 89-162/49-73 98-100 Exam: Gen.: Alert. On ventilator ENT: Pupils equal round reactive to light. Neck: Supple. No JVD or bruit. Tracheostomy present Cardiovascular: Regular rate and rhythm. No murmur rub or gallop Lungs: Clear Abdomen: Soft. Nontender. Positive bowel sounds. No organomegaly Extremities: Trace edema - Lab 02/28/17 04:20 02/26/17 04:47 Most recent lab results ABG pH 7.359 (7.35-7.45) 02/26/17 04:00 ABG pCO2 36.9 MM HG (35-48) 02/26/17 04:00 ABG pO2 114.1 MM HG (80-95) H 02/26/17 04:00 ABG HCO3 20.3 MMOL/L (20-26) 02/26/17 04:00 ABG O2 Saturation 97.8 % (95-100) 02/26/17 04:00 Calcium 8.9 MG/DL (8.5-10.1) 02/26/17 04:47 Phosphorus 3.1 MG/DL (2.5-4.9) 02/24/17 04:31 Magnesium 2.3 MG/DL (1.8-2.4) 02/25/17 05:35 Assessment and Plan (1) End stage renal disease on dialysis Status: Chronic Assessment and plan: 61-year-old woman with: * ESRD. Dialysis Wednesday * Ventilatory failure. Tracheostomy placed Wednesday * Ischemic hepatitis * Diabetes mellitus * Hypertension * Seizure disorder Current Visit: Yes (2) Ischemic hepatitis Status: Acute Current Visit: Yes (3) Seizure disorder Status: Acute Current Visit: Yes (4) Diabetes mellitus Status: Chronic Current Visit: Yes Qualifiers: Diabetes mellitus type: type 2 (5) Respiratory failure Status: Acute Current Visit: No Qualifiers: Chronicity: acute Respiratory failure complication: hypoxia Qualified Code(s): J96.01 - Acute respiratory failure with hypoxia
[2017-02-28] MEDS: MONTELUKAST 10 MG TABLET PO SCH (22:00)
[2017-02-28] MEDS: GABAPENTIN 50 MG/ML 30 ML/BOTTLE PO SCH (22:02)
[2017-03-01] MEDS: ALBUTEROL/IPRATROPIUM 3 ML NEB RESP TX SCH ×3 (00:33→13:07)
[2017-03-01] MEDS: INSULIN REGULAR 100 UNIT/ML SUBCUT SCH ×3 (01:40→12:00)
[2017-03-01] MEDS: methylPREDNISolone SOD SUC 40 MG/1 ML VIAL IV SCH ×3 (01:41→15:40)
[2017-03-01] MEDS: CLINDAMYCIN INJ 300 MG in PREMIX 1 EACH IV SCH ×2 (01:42→10:09)
[2017-03-01] MEDS: METOCLOPRAMIDE 10 MG/2 ML VIAL IV SCH ×3 (01:42→12:15)
[2017-03-01 03:20] LABS: ABG Base Excess -5.8 MMOL/L (-2.5-2.5); ABG HCO3 19.6 MMOL/L (20-26); ABG Oxygen Saturation 99.6 % (95-100); ABG PCO2 35.4 MM HG (35-48); ABG PH 7.343 (7.35-7.45); ABG TCO2 17.9 MMOL/L (23-27); Allen Test Positive; Pt O2 Delivery Device Ventilator
[2017-03-01 04:44] LABS: Basophils % 0.1 % (0.0-0.8); Hemoglobin 8.7 GM/DL (12.0-16.0); Immature Granulocytes % 5.2 %; Immature Granulocytes Absolute 0.86 #; Lymphocytes # 0.7 10*3/uL (1.4-4.0); Mean Corpuscular HGB Conc 33.5 GM/DL (32-36); Mean Corpuscular Hemoglobin 30 PG (27-34); Mean Corpuscular Volume 90.6 FL (87-102); Mean Platelet Volume 10.6 FL (9.6-12.0); Monocytes # 1.1 10*3/uL (0.11-0.8); Monocytes % 6.4 % (1.7-12.7); NRBC # 0.06 10*3/uL; Neutrophils % 84.3 % (38.7-73.9); Platelet Count 143 T/CUMM (130-400); Red Blood Count 2.87 MC/CUMM (3.8-5.5); Red Cell Distribution Width 18.4 % (9.3-17.3); White Blood Count 16.6 T/CUMM (4-12)
[2017-03-01 05:15] LABS: Albumin 2.8 G/DL (3.4-5.0); Bilirubin,Total 0.8 MG/DL (0.2-1.0); Calcium 9.1 MG/DL (8.5-10.1); Osmolality,Calculated 299.1 MOS/KG (273-304); Potassium 3.8 MMOL/L (3.5-5.1); Total Protein 6.1 G/DL (6.4-8.3)
[2017-03-01 05:45] LABS: Magnesium 2.8 MG/DL (1.8-2.4); Phosphorous 4.7 MG/DL (2.5-4.9)
[2017-03-01 06:08] LABS: Lymphocytes 5 % (20-55); Segmented Neutrophils 90 % (50-85); Total Cells Counted 100
[2017-03-01 06:09] LABS: Platelet Estimate Normal; Polychromasia Few
[2017-03-01 06:10] LABS: Burr Cells Few
[2017-03-01] MEDS: PROPOFOL 1,000 MG/100 ML BOTTLE IV SCH ×2 (06:37→06:38)
--- NOTE | 2017-03-01 07:50 | Anesthesia Post-Op ---
Anesthesia Post OP - Post Ansesthetic Evaluation Patient seen in post op: Yes Resp: other (weaning from vent) CV: within normal limits Mental: within normal limits Temp: within normal limits Azat-Dl-Vvsllgnoo: within normal limits Nausea and Vomiting: within normal limits Pain: within normal limits
--- NOTE | 2017-03-01 08:28 | XRay Report ---
XR chest 1V portable Indication: Ventilator Comparison: Chest x-ray dated February 27, 2017 Technique: Single frontal view of the chest. Findings: Continued cardiomegaly. Lines and tubes appear grossly unchanged. Increased right infrahilar opacification suggesting worsened pneumonia or pulmonary edema. Continued left perihilar opacities. Small left pleural fluid not excluded. Visualized osseous and surrounding soft tissue structures appear grossly unchanged. IMPRESSION: As above. PROCEDURE INTERPRETED AT [facility] DEPARTMENT OF RADIOLOGY Final Report Signed by: Dr Maged Becerra
--- NOTE | 2017-03-01 08:38 | Pulmonology Progress Note ---
Pulmonary - PN: Subj Interval history: This 61-year-old white female had a recent hospitalization after having a seizure and aspirating. She had a prolonged mechanical ventilation. She was eventually extubated at [facility]. She was taking in pured foods and thickened liquids. She tended to get more short of breath when she was due to have dialysis but usually not after dialysis. Apparently she went to the swing bed after her first dialysis there get short of breath and had some stridor and was moved up here. Neck films have been okay. I bronchoscoped her when she was having some stridor after extubation. She had some mild cord edema at that time and we treated her with racemic epinephrine and steroids and it resolved. She does tend to have upper airway noises when she is short of breath. At present she is on noninvasive mechanical ventilation with a setting of 14/8 and 3 L of oxygen and her oxygen saturation is in the upper 80s. I will increase the oxygen a little. Her chest x-ray actually looked good on the . Will recheck. 02/23/2017 I was called to see the patient 345 this morning. She was hypoxemic despite BiPAP and high flow oxygen. Decision was made to go ahead and intubate her. She has been having some upper airway noises. Patient was a difficult intubation and I got Dr. Hough from the emergency room to assist. He got her intubated with a glide scope. I subsequently bronchoscoped her adjusted tube to be pulled back about 3 cm to where it was 2 cm above the arvin. Cleaned out the left long where there were some bloody secretions. Should note that her upper airway appears to be collapsible as with tracheomalacia. Her arytenoids were markedly swollen which made the intubation somewhat difficult. Will sedate and ventilate. 02/24/2017 patient's x-ray is clear and her ABGs look great. Not doing any CPAP as yet. I do think she is going to require tracheostomy to wean. She has laryngeal edema and tracheomalacia. She has been having some problems with her upper airway ever since she was extubated 3 or 4 weeks ago. We have been using BiPAP on her which should help with the tracheomalacia but apparently not enough. 02/25/2017 chest x-ray remains clear. Patient doing some brief CPAP. Liver tests are elevated. Need to get GI to see. I have asked ENT to see her. I think a tracheostomy will be needed for her second episode of respiratory failure and upper airway problems. 02/26/2017 patient has developed some swelling in her eyes and tone. I would be concerned about an allergic reaction. Reviewing her medications, Fortaz and Dilantin would be the top two most likely problems. Defer to primary service and neurology on changing those. Cultures have been negative. Patient is also on Keppra for seizures. She is not on JAHAIRA inhibitors. I have asked ENT to see her to do tracheostomy. She may not require this long-term. However I do think she has tracheomalacia and that if we extubate her now she is very likely to require reintubation in the near future. The tracheostomy will facilitate weaning from the ventilator. 03/01/2017 patient doing well with CPAP trials. She is alert. Tongue swelling has gone down a bit. Should be ready to go to [facility]. Exam (Progress Note) - Constitutional Vitals: Period Temp Pulse Resp BP Sys/Gonzalez Pulse Ox Last 24 Hr 97.4 F-98.1 F 62-81 05-27 95-146/55-104 98-100 Exam: Patient was drowsy but arousable. Eyelids are swollen, tongue slightly swollen and prominent. Tracheostomy is in place and patient is on CPAP. Pupils react to light. Neck is supple. Her chest sounds clear. Heart rate is normal. Chest reveals equal breath sounds, no wheezes, no rhonchi. She is not tight. Heart normal rate and rhythm no murmurs. Abdomen soft nontender no masses. Extremities no clubbing cyanosis edema. Calves nontender. Results - Labs CBC & BMP: 03/01/17 04:30 03/01/17 04:30 Lab Results: I have reviewed the past 24 hour labs - Diagnostic Findings Procedure: Chest x-ray: image reviewed by me (Chest x-ray is essentially clear now. Tracheostomy in good placement) Assessment and Plan (1) Chronic renal failure Status: Chronic Assessment and plan: Patient on regular dialysis. Nephrology seen. Tends to get a little ahead on fluid if there is 2 days between dialysis 02/23/2017 patient was dialyzed last night. Still has potassium of 6.1 which may be related to acidosis. 02/24/2017 patient for dialysis today. 02/25/2017 continuing dialysis. 02/26/2017 continuing with dialysis. 03/01/2017 continuing with dialysis. Current Visit: No (2) COPD (chronic obstructive pulmonary disease) Status: Chronic Assessment and plan: Continuing bronchodilators does not appear to be having an acute exacerbation 02/23/2017 continuing bronchodilators. 02/24/2017 continuing bronchodilators. No active wheezing. 02/25/2017 continuing bronchodilators. I do not hear any wheezing. 02/26/2017 no active bronchospasm. 03/01/2017 lungs sound pretty good. Continuing bronchodilators. Current Visit: No Qualifiers: (3) Diabetes mellitus Status: Chronic Assessment and plan: Blood sugars fairly well controlled. 02/24/2017 blood sugars look good. 02/25/2017 blood sugars around 200. Acceptable 02/26/2017 glucoses in 200s patient is on steroids 03/01/2017 glucoses well controlled. Current Visit: Yes Qualifiers: Diabetes mellitus type: type 2 (4) Laryngeal stridor Status: Acute Assessment and plan: ENT is reviewed. She has slight paresis of the left vocal cord and a questionable cyst posteriorly. Dr. Nath is to corn picker in follow-up today. 02/23/2017 patient appears to have some tracheomalacia which may be the source of her stridor. 02/24/2017 status post intubation. With laryngeal edema and tracheomalacia, thicker tracheostomy would be quite helpful. 02/25/2017 again I think her upper airway noises are mostly related to tracheomalacia. Tracheostomy would be the best route at this point 02/26/2017 in addition to the above she has developed some swelling in her tongue and eyes and some of this could be an allergic type reaction. I would suggest holding Dilantin and/or Fortaz and replacing them. Defer to primary care and neurologist on those. 03/01/2017 this has been circumvented by the tracheostomy. Current Visit: Yes (5) Respiratory failure Status: Acute Assessment and plan: Patient became quite hypoxemic despite facemask BiPAP. Now on mechanical ventilation. Do think she has got some tracheomalacia playing a part. 02/24/2017 ABGs and chest x-ray look good. Start weaning trials. Do not want to extubate her at this point. Will have ENT to see and consider tracheostomy. 02/25/2017 ABGs pending. Not doing CPAP yet. ENT has been consulted 02/26/2017 tolerating CPAP 03/01/2017 tolerating CPAP well. Should be ready to go to [facility] soon. Current Visit: No Qualifiers: Chronicity: acute Respiratory failure complication: hypoxia Qualified Code(s): J96.01 - Acute respiratory failure with hypoxia
--- NOTE | 2017-03-01 08:41 | Discharge Summary ---
Hospital Course - Hospital Course Hospital Course: 61-year-old female that presented to the ED at [facility] this morning for the evaluation of shortness of breath. Patient has a very complex and extensive medical history significant for: hypertension, obstructive sleep apnea, atrial fibrillation, end-stage renal disease, congestive heart failure, insulin-dependent diabetes mellitus and chronic obstructive pulmonary disease. Patient was at her normal hemodialysis treatment and started having trouble breathing and had stridor in the ER and was emergently intubated. BNP 1179 with cxr consistent with Left lower lobe pneumonia. A nephrology was consulted. Dr. Rocha was consulted to manage the vent. Patient was started on clindamycin to cover aspiration. Blood cultures 2 were negative no growth. Initial white count on admission was only 13.3 and is increased to 16.6. Patient has started to have diarrhea and I have discontinued her Reglan and will send stool for C. difficile. Her chest x-ray shows worsening pulmonary edema and left perihilar opacities with small left pleural effusion. She is currently receiving dialysis. They were unable to successfully wean her off the vent and a tracheostomy was performed on February 26, 2017. Patient has been accepted over to [facility] first a slow wean off the vent. Her hemoglobin today was 8.7. She is received 2 units of packed red blood cells during admission. A central line was placed on February 24, 2017 by interventional radiology. Patient developed proximal atrial fib and was started on amiodarone. Patient underwent bronchoscopy of the left lung but I do not see any labs that were sent. Patient had elevated liver enzymes thought to be due to ischemic hepatitis. Dr. Rivers was consulted and placed a PEG tube. Patient has a history of seizures and is already on Dilantin however patient was thought to have a reaction to the Dilantin and she was switched over to IV Keppra and is done better. Patient will be transferred over to [facility] today for further attempts to wean off the vent. Dr. Rocha will assume care. - Time spent with patient Time with patient DS: Greater than 30 minutes Discharge Plan - Discharge Data Disposition: Disch/Xfer-Ipshort Term Hos Condition at Discharge: Stable Discharge Diet: other (npo ) Activity: as per physical therapy Hygiene: no restrictions Weight Bearing at Discharge: other (bedrest ) - Discharge Medications New Albuterol Neb [Proventil Neb] 2.5 mg RESP TX RT Q1H PRN PRN Reason: Shortness Of Breath/Wheezing Aspirin Tab 162.5 mg PO DAILY tablet Clindamycin Inj [Cleocin Inj] 300 mg IV Q8H Dextrose 50% [D50] 25 gm IV PRN PRN syringe PRN Reason: Hypoglycemia with IV access Heparin Inj 5,000 unit SUBCUT Q12H vial Heparin Inj 2,000 unit IV .DIALYSIS PRN vial PRN Reason: HEP-LOCK Heparin Lock Flush 50 units IV PRN PRN syringe PRN Reason: central line lock levETIRAcetam INJ [Keppra Inj] 1,000 mg IV Q12H vial Pantoprazole Inj [Protonix Inj] 40 mg IV Q24H vial Racepinephrine Neb [S2] 0.5 ml RESP TX Q3HR PRN PRN Reason: Stridor Albuterol/Ipratropium Neb [Duoneb] 3 ml RESP TX RT Q6H Glucagon 1 mg IM PRN PRN vial PRN Reason: Hypoglycemia w/o IV access Insulin Regular [HumuLIN R] See Protocol SUBCUT Q6HR unit methylPREDNISolone SOD SUC INJ [SoluMEDROL] 40 mg IV Q8H vial Continue Multivitamin [One Daily] 1 tablet PO QAM Atorvastatin [Lipitor] 40 mg PO BEDTIME Montelukast Tab [Singulair Tab] 10 mg PO BEDTIME Calcium Acetate 667 mg PO TID W/MEALS Amiodarone Tab [Cordarone Tab] 400 mg PO BID #90 tablet Gabapentin Liquid [Neurontin Liquid] 200 mg PO BEDTIME bottle Lidocaine 5% Patch [Lidoderm 5% Patch] 1 patch TRANSDERM DAILY patch Ondansetron Inj [Zofran Inj] 4 mg IV Q4H PRN vial PRN Reason: Nausea Methocarbamol 750 mg PO BID PRN PRN Reason: MUSCLE SPASMS Fluticasone/Salmeterol 250-50 [Advair 250-50] 1 puff INH QAM Docusate Sodium Cap [Colace Cap] 100 mg PO BID PRN capsule PRN Reason: Constipation Epoetin Jeffrey [Epogen] 10,000 unit IV WITH DIALYSIS PRN vial PRN Reason: Dialysis Gabapentin Liquid [Neurontin Liquid] 100 mg NG QAM bottle LORazepam INJ [Ativan Inj] 1 mg IV Q6H PRN vial PRN Reason: seizures Discontinued Insulin Detemir [Levemir FlexPen] 8 unit SUBCUT 1900 Ipratropium/Albuterol Sulfate [Iprat-Albut 0.5-3(2.5) mg/3 ml] 3 ml PO QID PRN PRN Reason: Shortness Of Breath Aspirin EC Tab 162.5 mg PO QAM Albuterol/Ipratropium Neb [Duoneb] 3 ml RESP TX RT Q6H Clindamycin Inj [Cleocin Inj] 300 mg IV Q8H Famotidine Inj [Pepcid Inj] 20 mg IV Q24H vial Glucagon 1 mg IM PRN PRN vial PRN Reason: Hypoglycemia w/o IV access Heparin Lock Flush 50 units IV Q12H syringe Insulin Lispro [HumaLOG] See Protocol SUBCUT Q6HR unit levETIRAcetam INJ [Keppra Inj] 500 mg IV Q8H vial Metoclopramide Inj [Reglan Inj] 5 mg IV Q6HR vial Phenytoin Inj [Dilantin Inj] 100 mg IV Q8H vial Acetaminophen Tab [Tylenol Tab] 650 mg PO Q4H PRN tablet PRN Reason: Fever, Headache, Mild Pain cefTAZidime [Fortaz] 500 mg IV Q12H vial Diltiazem Tab [Cardizem Tab] 90 mg PO TID tablet Heparin Inj 2,000 unit IV .DIALYSIS PRN vial PRN Reason: DIALYSIS Heparin Lock Flush 50 units IV PRN PRN syringe PRN Reason: central line lock - Follow Up or Referral - Forms/Instructions Additional Discharge Instructions: Vent settings SIMV of 10, tidal volume 600, pressure support of 12, PEEP of 5, FiO2 30%. feedings nephro at 25 ML's per hour with 30 mL's of free water every 4 hours. Please send stool for c. diff Exam - Constitutional Vitals: Period Temp Pulse Resp BP Sys/Gonzalez Pulse Ox Last 24 Hr 97.4 F-98.1 F 62-81 10-26 95-146/55-104 98-100 General appearance: no acute distress, morbidly obese - Respiratory Respiratory exam: Present: clear to auscultation bilaterally. Absent: rhonchi, wheezes - Cardiovascular Cardiovascular exam: Present: regular rate and rhythm. Absent: systolic murmur - GI/Abdominal GI/Abdominal exam: Present: normal bowel sounds, soft. Absent: tenderness - Extremities Exam Extremities exam: Present: edema - Neurological Exam Neurological exam: Present: alert - Psychiatric Psychiatric exam: Present: depressed, flat affect Discharge Results Procedures and tests throughout hospitalization: Pending Orders 03/01/17 MRSA Surveillence, Inf Control 03/02/17 04:00 XR chest 1V portable IN AM Labs on day of discharge: Labs from last 24 hours 03/01/17 03/01/17 03/01/17 05:29 04:30 04:30 WBC 16.6 H RBC 2.87 L Hgb 8.7 L Hct 26.0 L MCV 90.6 MCH 30 MCHC 33.5 RDW 18.4 H Plt Count 143 MPV 10.6 Neut % (Auto) 84.3 H Lymph % (Auto) 4.0 L [place] % (Auto) 6.4 Eos % (Auto) 0.0 Baso % (Auto) 0.1 Neut # (Auto) 14.0 H Lymph # (Auto) 0.7 L [place] # (Auto) 1.1 H Eos # (Auto) 0.0 Baso # (Auto) 0.0 Total Counted 100 Immature Gran % 5.2 Nucleated RBC % 0.4 Immature Gran # 0.86 Segmented Neutrophils 90 H Lymphocytes 5 L Monocytes 5 Nucleated RBCs # 0.06 Platelet Estimate Normal Immature Plt Fraction 0.0 Polychromasia Few Annamarie Cells Few ABG pH ABG pCO2 ABG pO2 ABG HCO3 ABG Total CO2 ABG O2 Saturation ABG Base Excess FiO2 Sodium 135 L Potassium 3.8 Chloride 100 Carbon Dioxide 22 Anion Gap 16.8 H BUN 86 H Creatinine 4.90 H GFR Calculation 9 BUN/Creatinine Ratio 17.00 Glucose 169 H POC Glucose 217 H Calculated Osmolality 299.1 Calcium 9.1 Phosphorus Magnesium Total Bilirubin 0.80 AST 98 H ALT 414 H Alkaline Phosphatase 238 H Total Protein 6.1 L Albumin 2.8 L Globulin 3.3 Albumin/Globulin Ratio 0.8 L Prealbumin Crossmatch 03/01/17 03/01/17 03/01/17 04:30 03:00 01:11 WBC RBC Hgb Hct MCV MCH MCHC RDW Plt Count MPV Neut % (Auto) Lymph % (Auto) [place] % (Auto) Eos % (Auto) Baso % (Auto) Neut # (Auto) Lymph # (Auto) [place] # (Auto) Eos # (Auto) Baso # (Auto) Total Counted Immature Gran % Nucleated RBC % Immature Gran # Segmented Neutrophils Lymphocytes Monocytes Nucleated RBCs # Platelet Estimate Immature Plt Fraction Polychromasia [place] Cells ABG pH 7.343 L ABG pCO2 35.4 ABG pO2 158.0 H ABG HCO3 19.6 L ABG Total CO2 17.9 L ABG O2 Saturation 99.6 ABG Base Excess -5.8 L FiO2 30.00 Sodium Potassium Chloride Carbon Dioxide Anion Gap BUN Creatinine GFR Calculation BUN/Creatinine Ratio Glucose POC Glucose 201 H Calculated Osmolality Calcium Phosphorus 4.7 Magnesium 2.8 H Total Bilirubin AST ALT Alkaline Phosphatase Total Protein Albumin Globulin Albumin/Globulin Ratio Prealbumin 51.0 H Crossmatch 02/28/17 02/28/17 02/24/17 18:14 12:10 Unknown WBC RBC Hgb Hct MCV MCH MCHC RDW Plt Count MPV Neut % (Auto) Lymph % (Auto) [place] % (Auto) Eos % (Auto) Baso % (Auto) Neut # (Auto) Lymph # (Auto) [place] # (Auto) Eos # (Auto) Baso # (Auto) Total Counted Immature Gran % Nucleated RBC % Immature Gran # Segmented Neutrophils Lymphocytes Monocytes Nucleated RBCs # Platelet Estimate Immature Plt Fraction Polychromasia [place]arie Cells ABG pH ABG pCO2 ABG pO2 ABG HCO3 ABG Total CO2 ABG O2 Saturation ABG Base Excess FiO2 Sodium Potassium Chloride Carbon Dioxide Anion Gap BUN Creatinine GFR Calculation BUN/Creatinine Ratio Glucose POC Glucose 195 H 201 H Calculated Osmolality Calcium Phosphorus Magnesium Total Bilirubin AST ALT Alkaline Phosphatase Total Protein Albumin Globulin Albumin/Globulin Ratio Prealbumin Crossmatch See Detail DS: Provider Date of admission: 02/20/17 10:28 Primary care physician: . No PCP Attending physician on admission: Brianna Mishra MD Consults: 02/20/17 11:17 Consult to Physician [CONS] Routine Comment: Consulting Provider: Kenny Justice When should Consulting Provider be notified: Now 02/21/17 06:56 Consult to Physician [CONS] Routine Comment: Consulting Provider: Gera Chow When should Consulting Provider be notified: Now Consult to Specialist Group: ENT When should Consulting Provider be notified: Now 02/21/17 08:58 Consult to Physician [CONS] Routine Comment: Consulting Provider: João Valenzuela Consulting Provider Notified: Yes When should Consulting Provider be notified: Now Person Notified: dr. chow Date Notified: 02/21/17 Time Notified: 08:05 Consult Notification Comment: okay 02/23/17 13:14 Consult to Dietitian [CONS] Routine Reason for Dietitian: TF-Initiate/Manage Consult Comment: Will start nepro, flush to keep tube open with minimal amt. of h2o 02/24/17 06:49 Consult to Physician [CONS] Routine Comment: Ask Dr. Nath to see about a tracheostomy Consulting Provider: Consult to Specialist Group: ENT When should Consulting Provider be notified: In am Date Notified: 02/25/17 Time Notified: 13:20 02/26/17 06:47 Consult to Physician [CONS] Routine Comment: Consulting Provider: Getachew Nath When should Consulting Provider be notified: Now 02/26/17 09:14 Consult to Case Mgmt/Social Srvs [CONS] Routine Reason for Case Mgmt/Social Srvs: LTAC Consult Comment: Trach today per Dr. Nath [facility] Wednesday per Dr. Rocha 02/26/17 15:01 Consult to Physician [CONS] Routine Comment: Recommendations for seizure meds Consulting Provider: Iker Ricks When should Consulting Provider be notified: In am Consult to Specialist Group: Neurology When should Consulting Provider be notified: Now Discharging clinician: Priya Maldonado MD
[2017-03-01] MEDS: CALCIUM ACETATE 667 MG CAPSULE PO SCH ×2 (09:05→12:00)
[2017-03-01] MEDS: NYSTATIN 500,000 UNIT/5 ML UDCUP SWISH/SWAL SCH ×2 (09:05→13:17)
[2017-03-01] MEDS: ASPIRIN 325 MG TABLET PO SCH (09:05)
[2017-03-01] MEDS: MULTIVITAMIN (CENTRUM) TABLET PO SCH (09:06)
[2017-03-01] MEDS: AMIODARONE 200 MG TABLET PO SCH (09:07)
[2017-03-01] MEDS: LIDOCAINE 5% PATCH TRANSDERM SCH (09:07)
[2017-03-01] MEDS: HEPARIN 5,000 UNIT/1 ML VIAL SUBCUT SCH (09:08)
--- NOTE | 2017-03-01 09:36 | Dialysis Note ---
Dialysis Note - Dialysis Note S: Pt seen on dialysis. She states she is doing well by nodding. Trach site with serosanguinous drainage. O: VSS A: ESRD on CHD. Tolerating well without complications. P: Continue routine CHD as prescribed. For transfer to [facility] today.
[2017-03-01] MEDS: GABAPENTIN 50 MG/ML 30 ML/BOTTLE NG SCH (10:09)
[2017-03-01] MEDS: PANTOPRAZOLE 40 MG VIAL IV SCH (12:00)
[2017-03-01 17:58] VITALS: BP 124/80
--- NOTE | 2017-03-08 08:45 | Physician Query Form ---
CLICK EDIT DOCUMENT TO SELECT QUERY ANSWER --> OK --> SIGN Candy Gomez RN Clinical Xm1 [employer] W) [phone] (f) [phone] [email or web address] PROVIDERS: Make your selection(s) from the choices in EACH section by typing an "x" and enter comments in the comment section. Please use your independent medical judgment in providing your response. This request does not imply that any particular answer is desired or expected. CLINICAL INDICATORS: (Providers should not edit this section) Based on documentation in the discharge summary of "CXR consistent with left lower lobe pneumonia. Patient was started on clindamycin to cover aspiration". Community Acquired and Healthcare Acquired are both unspecified terms and require further specificity. Based on the above, could you please clarify further specificity regarding the type of pneumonia you are treating (even if specific organism may not be known) ? (x ) Aspiration pneumonia ( ) Gram negative pneumonia ( ) Gram positive pneumonia ( ) Bacterial pneumonia due to, please specify organism (if known): ( ) Viral pneumonia ( ) Pneumonia due to, please specify: ( ) Clinically unable to determine ( ) Other, please specify: COMMENTS: PLEASE ALSO DOCUMENT RESPONSE IN PROGRESS NOTES AND/OR DISCHARGE SUMMARY Use of terms such as suspected, likely, or probable (associated with a specific diagnosis that is being evaluated, monitored, or treated as if it exists) are acceptable and can be restated in the discharge summary if not ruled out. MTDD
== END 2017-03-01 16:30 | DRG 4 ==
LOC: EDUNIT# → EDBD → N.ED 09:07 → SUATTDRO 10:28 → N.EDINP 10:28 → N.CC 10:56
PROVIDERS: ADMIT Internal Medicine; ATTEND Internal Medicine

== ENCOUNTER 2017-06-01 17:39 | Inpatient (IN) ==
[2017-06-01] MEDS ORDERED: ALPRAZolam 0.5 MG TABLET PO ONE ×2 (18:12→19:58)
[2017-06-01] MEDS ORDERED: ALPRAZolam 0.5 MG TABLET ONE ×2 (18:24→19:43)
[2017-06-01 18:39] LABS: Basophils % 0.3 % (0.0-0.8); Hematocrit 34.7 VOL% (35.7-47.0); Hemoglobin 11.1 GM/DL (12.0-16.0); Immature Granulocytes % 0.5 %; Immature Granulocytes Absolute 0.03 #; Lymphocytes # 0.3 10*3/uL (1.4-4.0); Mean Corpuscular Hemoglobin 30 PG (27-34); Mean Corpuscular Volume 95.1 FL (87-102); Mean Platelet Volume 11.2 FL (9.6-12.0); Monocytes # 0.1 10*3/uL (0.11-0.8); Monocytes % 0.9 % (1.7-12.7); Neutrophils # 6.2 10*3/uL (1.4-7.4); Neutrophils % 94.3 % (38.7-73.9); Platelet Count 135 T/CUMM (130-400); Red Blood Count 3.65 MC/CUMM (3.8-5.5); Red Cell Distribution Width 22.5 % (9.3-17.3); White Blood Count 6.6 T/CUMM (4-12)
[2017-06-01 19:01] LABS: Hypochromasia 1+; Lymphocytes 5 % (20-55); Platelet Estimate Decreased; Segmented Neutrophils 94 % (50-85); Total Cells Counted 100
[2017-06-01 19:02] LABS: Anisocytosis Slight; Macrocytosis Slight; Polychromasia Slight; Target Cells Slight
[2017-06-01] MEDS ORDERED: LORazepam 2 MG/1 ML VIAL IM STA (19:08)
[2017-06-01] MEDS ORDERED: LORazepam 2 MG/1 ML VIAL ONE (19:08)
[2017-06-01 19:24] LABS: Alanine Aminotransferase 24 U/L (13-56); Albumin 3.6 G/DL (3.4-5.0); Alkaline Phosphatase 126 U/L (45-117); Aspartate Amino Transferase 31 U/L (0-37); Blood Urea Nitrogen 20 MG/DL (7-18); Calcium 8.5 MG/DL (8.5-10.1); Glucose 302 MG/DL (74-106); Osmolality,Calculated 288.7 MOS/KG (273-304); Potassium 3.5 MMOL/L (3.5-5.1); Sodium 138 MMOL/L (136-145); Total Protein 8.2 G/DL (6.4-8.3); Troponin I Only 0.025 NG/ML (0.00-0.045)
[2017-06-01] MEDS ORDERED: ALBUTEROL/IPRATROPIUM 3 ML NEB RESP TX STA (20:54)
[2017-06-01] MEDS ORDERED: FUROSEMIDE 40 MG/4 ML VIAL IV STA (21:27)
[2017-06-01] MEDS ORDERED: FUROSEMIDE 40 MG/4 ML VIAL ONE (22:08)
[2017-06-01] MEDS ORDERED: ONDANSETRON 4 MG/2 ML VIAL IV PRN (23:26)
[2017-06-02] MEDS: AMIODARONE 200 MG TABLET PO SCH ×3 (00:41→20:23)
[2017-06-02] MEDS: FAMOTIDINE 20 MG TABLET PO SCH ×2 (00:41→09:44)
[2017-06-02] MEDS: GABAPENTIN 300 MG CAPSULE PO SCH ×3 (00:41→20:23)
[2017-06-02] MEDS: levETIRAcetam 250 MG TABLET PO SCH ×3 (00:41→20:23)
[2017-06-02] MEDS: ATORVASTATIN 40 MG TABLET PO SCH ×2 (00:41→20:23)
[2017-06-02] MEDS: MONTELUKAST 10 MG TABLET PO SCH ×2 (00:41→20:24)
[2017-06-02] MEDS ORDERED: GLUCAGON 1 MG VIAL IM PRN (00:51)
[2017-06-02] MEDS ORDERED: DEXTROSE 50% 25 GM/50 ML VIAL IV PRN (00:51)
[2017-06-02] MEDS ORDERED: ALBUTEROL/IPRATROPIUM 3 ML NEB RESP TX PRN (02:46)
[2017-06-02 05:19] LABS: Basophils % 0.1 % (0.0-0.8); Hematocrit 32.6 VOL% (35.7-47.0); Hemoglobin 10.1 GM/DL (12.0-16.0); Immature Granulocytes % 0.6 %; Immature Granulocytes Absolute 0.05 #; Lymphocytes # 0.4 10*3/uL (1.4-4.0); Lymphocytes % 4.7 % (21.3-54.2); Mean Corpuscular Hemoglobin 30 PG (27-34); Mean Corpuscular Volume 95.3 FL (87-102); Mean Platelet Volume 12.6 FL (9.6-12.0); Monocytes # 0.5 10*3/uL (0.11-0.8); Neutrophils # 7.7 10*3/uL (1.4-7.4); Neutrophils % 88.6 % (38.7-73.9); Platelet Count 138 T/CUMM (130-400); Red Blood Count 3.42 MC/CUMM (3.8-5.5); Red Cell Distribution Width 22.4 % (9.3-17.3); White Blood Count 8.7 T/CUMM (4-12)
[2017-06-02] MEDS ORDERED: RACEPINEPHRINE 0.5 ML NEB RESP TX ONE (05:32)
[2017-06-02] MEDS: ACETYLCYSTEINE 20% 800 MG/4 ML VIAL RESP TX SCH ×3 (05:42→19:28)
[2017-06-02 05:49] LABS: Albumin 3.1 G/DL (3.4-5.0); Bilirubin,Total 1.1 MG/DL (0.2-1.0); Calcium 8.8 MG/DL (8.5-10.1); Osmolality,Calculated 287.3 MOS/KG (273-304); Potassium 3.7 MMOL/L (3.5-5.1)
[2017-06-02 05:56] LABS: Hypochromasia 1+; Lymphocytes 9 % (20-55); Macrocytosis Slight; Nucleated Red Blood Cells 1 (0-5); Ovalocytes Slight; Platelet Estimate Normal; Segmented Neutrophils 86 % (50-85); Total Cells Counted 100
[2017-06-02 05:57] LABS: Giant Platelets Few
[2017-06-02] MEDS ORDERED: MORPHINE 2 MG/1 ML SYRINGE ONE (06:09)
[2017-06-02] MEDS ORDERED: MORPHINE 2 MG/1 ML SYRINGE IV ONE (06:10)
[2017-06-02] MEDS ORDERED: LIDOCAINE 2% VISCOUS 100 ML BOTTLE ONE (06:13)
[2017-06-02] MEDS ORDERED: diphenhydrAMINE 50 MG/1 ML VIAL IV ONE (06:15)
[2017-06-02] MEDS ORDERED: LIDOCAINE 2% VISCOUS 100 ML BOTTLE SWISH/SPIT ONE (06:30)
[2017-06-02] MEDS: HEPARIN 5,000 UNIT/1 ML VIAL SUBCUT SCH ×3 (06:48→23:33)
[2017-06-02] MEDS: INSULIN LISPRO 100 UNIT/ML SUBCUT SCH ×4 (09:41→20:24)
[2017-06-02] MEDS: ASPIRIN EC 81 MG TABLET PO SCH (09:43)
[2017-06-02] MEDS: PANTOPRAZOLE 40 MG TABLET PO SCH (09:43)
[2017-06-02] MEDS: MULTIVITAMIN (CENTRUM) TABLET PO SCH (09:43)
[2017-06-02] MEDS: LEVOFLOXACIN 250 MG TABLET PO SCH (09:43)
[2017-06-02] MEDS: MEGESTROL 40 MG TABLET PO SCH (09:43)
[2017-06-02] MEDS: FLUTICASONE/SALMETEROL 250-50 DISKUS 14 DOSE INH SCH (09:44)
[2017-06-02] MEDS: ACETAMINOPHEN 325 MG TABLET PO PRN (20:23)
[2017-06-02] MEDS: METHOCARBAMOL 750 MG TABLET PO PRN (20:47)
[2017-06-03] MEDS: ACETYLCYSTEINE 20% 800 MG/4 ML VIAL RESP TX SCH ×4 (00:22→21:10)
[2017-06-03] MEDS: HEPARIN 5,000 UNIT/1 ML VIAL SUBCUT SCH ×3 (06:14→22:29)
[2017-06-03] MEDS ORDERED: HEPARIN 10,000 UNIT/10 ML VIAL IV SCH (11:30)
[2017-06-03] MEDS: INSULIN LISPRO 100 UNIT/ML SUBCUT SCH ×3 (12:05→22:29)
[2017-06-03] MEDS: ASPIRIN EC 81 MG TABLET PO SCH (12:54)
[2017-06-03] MEDS: FAMOTIDINE 20 MG TABLET PO SCH (12:54)
[2017-06-03] MEDS: MULTIVITAMIN (CENTRUM) TABLET PO SCH (12:54)
[2017-06-03] MEDS: MEGESTROL 40 MG TABLET PO SCH (12:55)
[2017-06-03] MEDS: PANTOPRAZOLE 40 MG TABLET PO SCH (12:55)
[2017-06-03] MEDS: AMIODARONE 200 MG TABLET PO SCH ×2 (12:55→22:13)
[2017-06-03] MEDS: GABAPENTIN 300 MG CAPSULE PO SCH ×2 (12:55→22:14)
[2017-06-03] MEDS: levETIRAcetam 250 MG TABLET PO SCH ×2 (12:55→22:14)
[2017-06-03] MEDS: FLUTICASONE/SALMETEROL 250-50 DISKUS 14 DOSE INH SCH (12:55)
[2017-06-03] MEDS: ACETAMINOPHEN 325 MG TABLET PO PRN ×2 (13:03→22:15)
[2017-06-03] MEDS: METHOCARBAMOL 750 MG TABLET PO PRN (22:12)
[2017-06-03] MEDS: ATORVASTATIN 40 MG TABLET PO SCH (22:13)
[2017-06-03] MEDS: MONTELUKAST 10 MG TABLET PO SCH (22:14)
[2017-06-04] MEDS: ACETYLCYSTEINE 20% 800 MG/4 ML VIAL RESP TX SCH ×4 (01:39→19:35)
[2017-06-04] MEDS: INSULIN LISPRO 100 UNIT/ML SUBCUT SCH ×4 (08:38→21:42)
[2017-06-04] MEDS: HEPARIN 5,000 UNIT/1 ML VIAL SUBCUT SCH ×3 (09:30→21:08)
[2017-06-04] MEDS ORDERED: SEVOFLURANE 1 UNIT/15 MINUTE INH ONE (11:56)
[2017-06-04] MEDS ORDERED: PROPOFOL 200 MG/20 ML VIAL IV ONE (11:56)
[2017-06-04] MEDS ORDERED: SODIUM CHLORIDE 0.9% 1,000 ML IV ONE (11:56)
[2017-06-04] MEDS ORDERED: ONDANSETRON 4 MG/2 ML VIAL ONE (11:56)
[2017-06-04] MEDS ORDERED: ePHEDrine 50 MG/ML AMP ONE (11:57)
[2017-06-04] MEDS ORDERED: MIDAZOLAM 2 MG/2 ML VIAL ONE (11:57)
[2017-06-04] MEDS ORDERED: fentaNYL 100 MCG/2 ML VIAL ONE (11:57)
[2017-06-04] MEDS ORDERED: GLYCOPYRROLATE 0.4 MG/2 ML VIAL ONE (11:58)
[2017-06-04] MEDS ORDERED: ROCURONIUM 100 MG/10 ML VIAL IV ONE (11:58)
[2017-06-04] MEDS ORDERED: DEXAMETHASONE 10 MG/1 ML VIAL ONE (11:58)
[2017-06-04] MEDS: FLUTICASONE/SALMETEROL 250-50 DISKUS 14 DOSE INH SCH (15:31)
[2017-06-04] MEDS: AMIODARONE 200 MG TABLET PO SCH ×2 (15:31→21:07)
[2017-06-04] MEDS: MULTIVITAMIN (CENTRUM) TABLET PO SCH (15:31)
[2017-06-04] MEDS: ASPIRIN EC 81 MG TABLET PO SCH (15:31)
[2017-06-04] MEDS: MEGESTROL 40 MG TABLET PO SCH (15:32)
[2017-06-04] MEDS: levETIRAcetam 250 MG TABLET PO SCH ×2 (15:32→21:07)
[2017-06-04] MEDS: PANTOPRAZOLE 40 MG TABLET PO SCH (15:32)
[2017-06-04] MEDS: LEVOFLOXACIN 250 MG TABLET PO SCH (15:32)
[2017-06-04] MEDS: FAMOTIDINE 20 MG TABLET PO SCH (15:32)
[2017-06-04] MEDS: GABAPENTIN 300 MG CAPSULE PO SCH ×2 (15:32→21:08)
[2017-06-04] MEDS: ATORVASTATIN 40 MG TABLET PO SCH (21:07)
[2017-06-04] MEDS: MONTELUKAST 10 MG TABLET PO SCH (21:07)
[2017-06-04] MEDS: METHOCARBAMOL 750 MG TABLET PO PRN (21:08)
[2017-06-04] MEDS: ACETAMINOPHEN 325 MG TABLET PO PRN (21:09)
[2017-06-05] MEDS: ACETYLCYSTEINE 20% 800 MG/4 ML VIAL RESP TX SCH ×4 (00:21→20:38)
[2017-06-05 04:51] LABS: Basophils % 0.1 % (0.0-0.8); Hematocrit 29.1 VOL% (35.7-47.0); Hemoglobin 9.3 GM/DL (12.0-16.0); Immature Granulocytes % 0.6 %; Immature Granulocytes Absolute 0.04 #; Lymphocytes # 0.3 10*3/uL (1.4-4.0); Lymphocytes % 4.3 % (21.3-54.2); Mean Corpuscular Hemoglobin 30 PG (27-34); Mean Corpuscular Volume 92.4 FL (87-102); Mean Platelet Volume 12.8 FL (9.6-12.0); Monocytes # 0.1 10*3/uL (0.11-0.8); Monocytes % 1.2 % (1.7-12.7); Neutrophils # 6.3 10*3/uL (1.4-7.4); Neutrophils % 93.8 % (38.7-73.9); Platelet Count 144 T/CUMM (130-400); Red Blood Count 3.15 MC/CUMM (3.8-5.5); Red Cell Distribution Width 20.7 % (9.3-17.3); White Blood Count 6.8 T/CUMM (4-12)
[2017-06-05 05:17] LABS: Calcium 8.3 MG/DL (8.5-10.1); Potassium 5.6 MMOL/L (3.5-5.1)
[2017-06-05] MEDS: HEPARIN 5,000 UNIT/1 ML VIAL SUBCUT SCH ×3 (06:04→21:07)
[2017-06-05 07:13] LABS: Band Neutrophils 2 % (0-10); Hypochromasia 2+; Lymphocytes 4 % (20-55); Platelet Estimate Decreased; Segmented Neutrophils 93 % (50-85); Total Cells Counted 100
[2017-06-05 07:14] LABS: Target Cells 2+
[2017-06-05] MEDS: INSULIN LISPRO 100 UNIT/ML SUBCUT SCH ×4 (08:55→21:07)
[2017-06-05] MEDS: MULTIVITAMIN (CENTRUM) TABLET PO SCH (09:40)
[2017-06-05] MEDS: AMIODARONE 200 MG TABLET PO SCH ×2 (09:40→21:08)
[2017-06-05] MEDS: ASPIRIN EC 81 MG TABLET PO SCH (09:40)
[2017-06-05] MEDS: FAMOTIDINE 20 MG TABLET PO SCH (09:40)
[2017-06-05] MEDS: levETIRAcetam 250 MG TABLET PO SCH ×2 (09:41→21:08)
[2017-06-05] MEDS: PANTOPRAZOLE 40 MG TABLET PO SCH (09:41)
[2017-06-05] MEDS: GABAPENTIN 300 MG CAPSULE PO SCH ×2 (09:42→21:07)
[2017-06-05] MEDS: MEGESTROL 40 MG TABLET PO SCH (10:15)
[2017-06-05] MEDS: FLUTICASONE/SALMETEROL 250-50 DISKUS 14 DOSE INH SCH (15:30)
[2017-06-05] MEDS: MONTELUKAST 10 MG TABLET PO SCH (21:08)
[2017-06-05] MEDS: ATORVASTATIN 40 MG TABLET PO SCH (21:08)
[2017-06-06] MEDS: ACETYLCYSTEINE 20% 800 MG/4 ML VIAL RESP TX SCH ×3 (00:54→14:10)
[2017-06-06 02:23] LABS: Basophils % 0.1 % (0.0-0.8); Hematocrit 27.7 VOL% (35.7-47.0); Hemoglobin 8.9 GM/DL (12.0-16.0); Immature Granulocytes % 0.6 %; Immature Granulocytes Absolute 0.08 #; Lymphocytes # 0.8 10*3/uL (1.4-4.0); Lymphocytes % 6.2 % (21.3-54.2); Mean Corpuscular HGB Conc 32.1 GM/DL (32-36); Mean Corpuscular Hemoglobin 30 PG (27-34); Mean Platelet Volume 11.6 FL (9.6-12.0); Monocytes # 0.9 10*3/uL (0.11-0.8); Monocytes % 7.4 % (1.7-12.7); Neutrophils # 10.6 10*3/uL (1.4-7.4); Neutrophils % 85.7 % (38.7-73.9); Platelet Count 151 T/CUMM (130-400); Red Blood Count 3.01 MC/CUMM (3.8-5.5); Red Cell Distribution Width 20.3 % (9.3-17.3); White Blood Count 12.3 T/CUMM (4-12)
[2017-06-06 02:54] LABS: Calcium 7.9 MG/DL (8.5-10.1); Osmolality,Calculated 281.1 MOS/KG (273-304); Potassium 4.4 MMOL/L (3.5-5.1)
[2017-06-06] MEDS: HEPARIN 5,000 UNIT/1 ML VIAL SUBCUT SCH ×2 (06:15→13:25)
[2017-06-06] MEDS: INSULIN LISPRO 100 UNIT/ML SUBCUT SCH ×2 (08:46→12:31)
[2017-06-06] MEDS: FAMOTIDINE 20 MG TABLET PO SCH (08:52)
[2017-06-06] MEDS: LEVOFLOXACIN 250 MG TABLET PO SCH (08:52)
[2017-06-06] MEDS: AMIODARONE 200 MG TABLET PO SCH (08:52)
[2017-06-06] MEDS: levETIRAcetam 250 MG TABLET PO SCH (08:52)
[2017-06-06] MEDS: ASPIRIN EC 81 MG TABLET PO SCH (08:52)
[2017-06-06] MEDS: GABAPENTIN 300 MG CAPSULE PO SCH (08:52)
[2017-06-06] MEDS: MEGESTROL 40 MG TABLET PO SCH (08:52)
[2017-06-06] MEDS: PANTOPRAZOLE 40 MG TABLET PO SCH (08:52)
[2017-06-06] MEDS: MULTIVITAMIN (CENTRUM) TABLET PO SCH (08:52)
[2017-06-06] MEDS: FLUTICASONE/SALMETEROL 250-50 DISKUS 14 DOSE INH SCH (08:52)
[2017-06-06 12:17] VITALS: BP 116/64
== END 2017-06-06 15:25 | disposition home or self-care (01) | DRG 166 ==
LOC: N.ED 17:39 → N.EDINP 17:39 → N.TELEN 22:52 → N.ICU 06-04 16:19 → N.TELEN 06-05 14:47
PROVIDERS: ADMIT Hospitalist; ATTEND Hospitalist

== ENCOUNTER 2018-02-07 15:18 | Inpatient (IN) ==
[2018-02-11 08:25] VITALS: BP 110/64
== END 2018-02-11 11:10 | disposition home or self-care (01) | DRG 313 ==
LOC: N.ED 15:18 → N.EDINP 15:18 → SUATTDRO 20:08 → N.TELEN 20:47
PROVIDERS: ADMIT Internal Medicine; ATTEND Internal Medicine Infectious Disease

== ENCOUNTER 2018-03-08 11:34 | Observation (INO) ==
[2018-03-08 12:54] LABS: Basophils # 0.1 10*3/uL (0.0-0.2); Basophils % 0.6 % (0.0-0.8); Eosinophils # 0.5 10*3/uL (0.0-0.87); Eosinophils % 3.9 % (0.00-10.9); Hematocrit 27.3 VOL% (35.7-47.0); Hemoglobin 8.8 GM/DL (12.0-16.0); Immature Granulocytes % 0.5 %; Immature Granulocytes Absolute 0.06 #; Lymphocytes # 1.5 10*3/uL (1.4-4.0); Lymphocytes % 12.8 % (21.3-54.2); Mean Corpuscular HGB Conc 32.2 GM/DL (32-36); Mean Corpuscular Hemoglobin 30 PG (27-34); Mean Corpuscular Volume 92.5 FL (87-102); Mean Platelet Volume 12.3 FL (9.6-12.0); Monocytes # 1.5 10*3/uL (0.11-0.8); Monocytes % 12.9 % (1.7-12.7); NRBC # 0.02 10*3/uL; Neutrophils # 8.2 10*3/uL (1.4-7.4); Neutrophils % 69.3 % (38.7-73.9); Platelet Count 150 T/CUMM (130-400); Red Blood Count 2.95 MC/CUMM (3.8-5.5); White Blood Count 11.8 T/CUMM (4-12)
[2018-03-08 13:15] LABS: INR 1.1; PT Patient Result 11.5 SECS; Partial Thromboplastin Time 31.7 SECS (0-40)
[2018-03-08 13:25] LABS: Bilirubin,Total 0.5 MG/DL (0.2-1.0); Calcium 9.2 MG/DL (8.5-10.1); Osmolality,Calculated 283.8 MOS/KG (273-304); Potassium 3.9 MMOL/L (3.5-5.1); Total Protein 7.7 G/DL (6.4-8.3)
[2018-03-08 13:41] LABS: Apearance,Urine CLEAR (Clear); Bacteria,Urine Occasional /HPF (Few); Bilirubin,Urine Negative (Negative); Blood, Urine Small mg/dL (Negative); Glucose,Urine (UA) Negative (Negative); Ketones,Urine Negative (Negative); Mucus,Urine Occasional /LPF (Occasional); Nitrite,Urine Negative (Negative); Protein,Urine 100 MG/DL; RBC,Urine 1 /HPF (0-4); Squamous Epithelial Cell,Urine Occasional /HPF (0-10); Urine Color Yellow (Yellow); Urine Specific Gravity 1.013 (1.001-1.035); Urine Urobilinogen < 2.0 EU/DL (0.2-1.0); WBC,Urine 21 /HPF (0-6)
[2018-03-08] MEDS ORDERED: cefTRIAXone 1,000 MG in SODIUM CHLORIDE 0.9% 100 ML IV STA (14:35)
[2018-03-08] MEDS ORDERED: cefTRIAXone 1,000 MG in SYRINGE 1 EACH IV STA (14:56)
[2018-03-08] MEDS ORDERED: DEXTROSE 50% 25 GM/50 ML VIAL IV PRN (16:16)
[2018-03-08] MEDS ORDERED: ONDANSETRON 4 MG/2 ML VIAL IV PRN (16:16)
[2018-03-08] MEDS ORDERED: GLUCAGON 1 MG VIAL IM PRN (16:16)
[2018-03-08] MEDS: INSULIN REGULAR 100 UNIT/ML SUBCUT SCH ×2 (16:30→21:42)
[2018-03-08] MEDS: ACETAMINOPHEN 325 MG TABLET PO PRN ×2 (16:32→21:35)
[2018-03-08] MEDS: ALBUTEROL/IPRATROPIUM 3 ML NEB RESP TX SCH (19:40)
[2018-03-08] MEDS ORDERED: MONTELUKAST 10 MG TABLET PO SCH (21:00)
[2018-03-08] MEDS ORDERED: FAMOTIDINE 20 MG TABLET PO SCH (21:00)
[2018-03-08] MEDS: LIOTHYRONINE 25 MCG TABLET PO SCH (21:37)
[2018-03-08] MEDS: GABAPENTIN 300 MG CAPSULE PO SCH (21:39)
[2018-03-08] MEDS: levETIRAcetam 500 MG TABLET PO SCH (21:39)
[2018-03-08] MEDS: AMIODARONE 200 MG TABLET PO SCH (21:45)
[2018-03-09] MEDS: ALBUTEROL/IPRATROPIUM 3 ML NEB RESP TX SCH ×3 (00:10→13:29)
[2018-03-09 04:59] LABS: Calcium 8.7 MG/DL (8.5-10.1); Osmolality,Calculated 279.2 MOS/KG (273-304); Potassium 4.2 MMOL/L (3.5-5.1)
[2018-03-09 05:11] LABS: Basophils # 0.1 10*3/uL (0.0-0.2); Basophils % 0.8 % (0.0-0.8); Eosinophils # 0.5 10*3/uL (0.0-0.87); Hematocrit 27.6 VOL% (35.7-47.0); Hemoglobin 9.1 GM/DL (12.0-16.0); Immature Granulocytes % 0.4 %; Immature Granulocytes Absolute 0.04 #; Lymphocytes # 1.6 10*3/uL (1.4-4.0); Lymphocytes % 15.8 % (21.3-54.2); Mean Corpuscular Hemoglobin 30 PG (27-34); Mean Corpuscular Volume 91.4 FL (87-102); Mean Platelet Volume 12.8 FL (9.6-12.0); Monocytes # 1.7 10*3/uL (0.11-0.8); NRBC # 0.02 10*3/uL; Neutrophils # 6.5 10*3/uL (1.4-7.4); Platelet Count 129 T/CUMM (130-400); Red Blood Count 3.02 MC/CUMM (3.8-5.5); Red Cell Distribution Width 16.9 % (9.3-17.3); White Blood Count 10.4 T/CUMM (4-12)
[2018-03-09 05:29] LABS: Band Neutrophils 1 % (0-10); Eosinophils 4 % (0-10); Lymphocytes 19 % (20-55); Segmented Neutrophils 70 % (50-85); Total Cells Counted 100
[2018-03-09 05:30] LABS: Hypochromasia 1+; Microcytosis 1+; Ovalocytes Slight; Target Cells Slight
[2018-03-09 05:31] LABS: Platelet Estimate Adequate
[2018-03-09] MEDS: CALCIUM ACETATE 667 MG CAPSULE PO SCH ×3 (08:54→18:31)
[2018-03-09] MEDS: INSULIN REGULAR 100 UNIT/ML SUBCUT SCH ×3 (08:55→18:31)
[2018-03-09] MEDS ORDERED: SALMETEROL INH SCH (09:00)
[2018-03-09] MEDS ORDERED: DILTIAZEM CD 300 MG CAPSULE PO SCH (09:00)
[2018-03-09] MEDS ORDERED: FLUTICASONE INH SCH (09:00)
[2018-03-09] MEDS ORDERED: PANTOPRAZOLE 40 MG TABLET PO SCH (09:00)
[2018-03-09] MEDS ORDERED: MULTIVITAMIN (CENTRUM) TABLET PO SCH (09:00)
[2018-03-09] MEDS ORDERED: PRORENAL D PO SCH ×2 (09:00)
[2018-03-09] MEDS ORDERED: DOXYCYCLINE HYCLATE 100 MG CAPSULE PO SCH (09:00)
[2018-03-09] MEDS ORDERED: ASPIRIN EC 81 MG TABLET PO SCH (09:00)
[2018-03-09] MEDS ORDERED: CETIRIZINE 10 MG TABLET PO SCH (09:00)
[2018-03-09] MEDS ORDERED: SERTRALINE 50 MG TABLET PO SCH (09:00)
[2018-03-09] MEDS: levETIRAcetam 500 MG TABLET PO SCH (11:03)
[2018-03-09] MEDS: LIOTHYRONINE 25 MCG TABLET PO SCH (11:03)
[2018-03-09] MEDS: AMIODARONE 200 MG TABLET PO SCH (11:03)
[2018-03-09] MEDS: GABAPENTIN 300 MG CAPSULE PO SCH (11:05)
[2018-03-09] MEDS ORDERED: cefTRIAXone 1,000 MG in SYRINGE 1 EACH IV SCH (15:00)
[2018-03-09] MEDS ORDERED: HEPARIN 10,000 UNIT/10 ML VIAL IV SCH (15:30)
[2018-03-09 17:33] VITALS: BP 130/65
== END 2018-03-09 18:35 | disposition home or self-care (01) ==
LOC: N.ED 11:34 → N.EDINP 11:34 → N.TELES 18:15
PROVIDERS: ADMIT Internal Medicine; ATTEND Internal Medicine

== ENCOUNTER 2018-05-02 08:16 | Observation (INO) ==
[2018-05-02] MEDS ORDERED: DIAZEPAM 5 MG TABLET PO ONE (08:55)
[2018-05-02] MEDS ORDERED: SODIUM CHLORIDE 0.45% 1,000 ML IV SCH (09:00)
[2018-05-02] MEDS ORDERED: SODIUM CHLORIDE 0.9% 250 ML IV SCH (09:30)
[2018-05-02 09:35] LABS: Basophils # 0.1 10*3/uL (0.0-0.2); Basophils % 0.7 % (0.0-0.8); Eosinophils # 0.3 10*3/uL (0.0-0.87); Eosinophils % 2.7 % (0.00-10.9); Hematocrit 31.5 VOL% (35.7-47.0); Hemoglobin 10.2 GM/DL (12.0-16.0); Immature Granulocytes % 0.7 %; Immature Granulocytes Absolute 0.07 #; Lymphocytes # 0.7 10*3/uL (1.4-4.0); Lymphocytes % 6.4 % (21.3-54.2); Mean Corpuscular HGB Conc 32.4 GM/DL (32-36); Mean Corpuscular Hemoglobin 28 PG (27-34); Mean Corpuscular Volume 87.7 FL (87-102); Mean Platelet Volume 11.2 FL (9.6-12.0); Monocytes # 0.9 10*3/uL (0.11-0.8); Monocytes % 8.6 % (1.7-12.7); Neutrophils # 8.5 10*3/uL (1.4-7.4); Neutrophils % 80.9 % (38.7-73.9); Platelet Count 196 T/CUMM (130-400); Red Blood Count 3.59 MC/CUMM (3.8-5.5); Red Cell Distribution Width 17.7 % (9.3-17.3); White Blood Count 10.5 T/CUMM (4-12)
[2018-05-02 09:42] LABS: INR 1.1
[2018-05-02] MEDS ORDERED: DIAZEPAM 5 MG TABLET ONE (11:08)
[2018-05-02] MEDS ORDERED: ALBUTEROL 2.5 MG/3 ML NEB RESP TX ONE (11:10)
[2018-05-02] MEDS ORDERED: ACETAMINOPHEN 325 MG TABLET PO PRN (15:43)
[2018-05-02] MEDS ORDERED: ONDANSETRON 4 MG/2 ML VIAL IV PRN (15:43)
[2018-05-02] MEDS ORDERED: PROMETHAZINE 25 MG/1 ML VIAL IM PRN (15:43)
[2018-05-02] MEDS ORDERED: ALBUTEROL 2.5 MG/3 ML NEB RESP TX PRN (15:46)
[2018-05-02] MEDS ORDERED: DEXTROSE 50% 25 GM/50 ML VIAL IV PRN (16:03)
[2018-05-02] MEDS ORDERED: GLUCAGON 1 MG VIAL IM PRN (16:03)
[2018-05-02] MEDS ORDERED: INSULIN LISPRO 100 UNIT/ML SUBCUT SCH (16:30)
[2018-05-02] MEDS: FORMOTEROL 20 MCG/2 ML NEB RESP TX SCH (20:30)
[2018-05-02] MEDS: BUDESONIDE 0.5 MG/2 ML NEB RESP TX SCH (20:30)
[2018-05-02] MEDS: levETIRAcetam 500 MG TABLET PO SCH (20:59)
[2018-05-02] MEDS: AMIODARONE 200 MG TABLET PO SCH (20:59)
[2018-05-02] MEDS ORDERED: MONTELUKAST 10 MG TABLET PO SCH (21:00)
[2018-05-02] MEDS ORDERED: FAMOTIDINE 20 MG TABLET PO SCH (21:00)
[2018-05-02] MEDS: GABAPENTIN 300 MG CAPSULE PO SCH (21:03)
[2018-05-02] MEDS: CALCIUM ACETATE 667 MG CAPSULE PO SCH (21:03)
[2018-05-03 05:32] LABS: Basophils % 0.6 % (0.0-0.8); Eosinophils # 0.3 10*3/uL (0.0-0.87); Eosinophils % 4.6 % (0.00-10.9); Hematocrit 25.4 VOL% (35.7-47.0); Hemoglobin 8.6 GM/DL (12.0-16.0); Immature Granulocytes % 0.4 %; Immature Granulocytes Absolute 0.03 #; Lymphocytes # 0.8 10*3/uL (1.4-4.0); Lymphocytes % 11.2 % (21.3-54.2); Mean Corpuscular HGB Conc 33.9 GM/DL (32-36); Mean Corpuscular Hemoglobin 28 PG (27-34); Mean Platelet Volume 11.2 FL (9.6-12.0); Monocytes % 14.6 % (1.7-12.7); Neutrophils # 4.6 10*3/uL (1.4-7.4); Neutrophils % 68.6 % (38.7-73.9); Platelet Count 208 T/CUMM (130-400); Red Blood Count 3.06 MC/CUMM (3.8-5.5); Red Cell Distribution Width 17.4 % (9.3-17.3); White Blood Count 6.7 T/CUMM (4-12)
[2018-05-03 05:46] LABS: Albumin 2.6 G/DL (3.4-5.0); Bilirubin,Total 0.9 MG/DL (0.2-1.0); Calcium 8.6 MG/DL (8.5-10.1); Osmolality,Calculated 282.4 MOS/KG (273-304); Potassium 3.9 MMOL/L (3.5-5.1); Total Protein 7.1 G/DL (6.4-8.3)
[2018-05-03] MEDS: FORMOTEROL 20 MCG/2 ML NEB RESP TX SCH (07:00)
[2018-05-03] MEDS: BUDESONIDE 0.5 MG/2 ML NEB RESP TX SCH (07:00)
[2018-05-03] MEDS ORDERED: MULTIVITAMIN (BEROCCA) TABLET PO SCH (09:00)
[2018-05-03] MEDS ORDERED: METHOCARBAMOL 500 MG TABLET PO SCH (09:00)
[2018-05-03] MEDS ORDERED: CETIRIZINE 10 MG TABLET PO SCH (09:00)
[2018-05-03] MEDS ORDERED: DILTIAZEM CD 300 MG CAPSULE PO SCH (09:00)
[2018-05-03] MEDS ORDERED: SERTRALINE 50 MG TABLET PO SCH (09:00)
[2018-05-03] MEDS ORDERED: ASPIRIN EC 81 MG TABLET PO SCH (09:00)
[2018-05-03] MEDS ORDERED: FLUTICASONE/SALMETEROL 250-50 DISKUS 14 DOSE INH SCH (09:00)
[2018-05-03] MEDS ORDERED: MULTIVITAMIN (CENTRUM) TABLET PO SCH (09:00)
[2018-05-03] MEDS ORDERED: PANTOPRAZOLE 40 MG TABLET PO SCH (09:00)
[2018-05-03] MEDS: AMIODARONE 200 MG TABLET PO SCH (11:11)
[2018-05-03] MEDS: levETIRAcetam 500 MG TABLET PO SCH (11:12)
[2018-05-03] MEDS: CALCIUM ACETATE 667 MG CAPSULE PO SCH (11:19)
[2018-05-03] MEDS: GABAPENTIN 300 MG CAPSULE PO SCH (11:19)
[2018-05-03] MEDS ORDERED: HEPARIN 10,000 UNIT/10 ML VIAL IV SCH (12:00)
[2018-05-03 13:46] VITALS: BP 122/72
== END 2018-05-03 15:34 | disposition home or self-care (01) ==
LOC: N.RAD 08:16 → N.5E 08:16 → N.SDSINP 08:26 → N.5E 16:29
PROVIDERS: ADMIT Internal Medicine Geriatric Medicine; ATTEND Internal Medicine Geriatric Medicine

== ENCOUNTER 2018-05-26 05:17 | Inpatient (IN) ==
[2018-05-26] MEDS ORDERED: methylPREDNISolone SOD SUC 125 MG/2 ML VIAL IV STA (05:53)
[2018-05-26] MEDS ORDERED: ALBUTEROL/IPRATROPIUM 3 ML NEB RESP TX STA (05:54)
[2018-05-26 06:52] LABS: Basophils # 0.1 10*3/uL (0.0-0.2); Basophils % 0.9 % (0.0-0.8); Eosinophils # 0.3 10*3/uL (0.0-0.87); Eosinophils % 4.8 % (0.00-10.9); Hematocrit 28.8 VOL% (35.7-47.0); Hemoglobin 9.2 GM/DL (12.0-16.0); Immature Granulocytes % 0.7 %; Immature Granulocytes Absolute 0.05 #; Lymphocytes # 0.8 10*3/uL (1.4-4.0); Lymphocytes % 11.9 % (21.3-54.2); Mean Corpuscular HGB Conc 31.9 GM/DL (32-36); Mean Corpuscular Hemoglobin 29 PG (27-34); Mean Corpuscular Volume 89.2 FL (87-102); Mean Platelet Volume 10.8 FL (9.6-12.0); Monocytes # 0.9 10*3/uL (0.11-0.8); Monocytes % 13.2 % (1.7-12.7); NRBC # 0.08 10*3/uL; Neutrophils # 4.8 10*3/uL (1.4-7.4); Neutrophils % 68.5 % (38.7-73.9); Platelet Count 201 T/CUMM (130-400); Red Blood Count 3.23 MC/CUMM (3.8-5.5); Red Cell Distribution Width 19.9 % (9.3-17.3); VBG Base Excess -6.7 MEQ/L (0-4); VBG HCO3 19.8 MEQ/L (24-28); VBG PCO2 43.8 MMHG (41-51); VBG PH 7.273; VBG PO2 88.8 MMHG (17-40); White Blood Count 7.1 T/CUMM (4-12)
[2018-05-26 07:11] LABS: Albumin 3.2 G/DL (3.4-5.0); Bilirubin,Total 0.7 MG/DL (0.2-1.0); Calcium 8.7 MG/DL (8.5-10.1); Osmolality,Calculated 283.8 MOS/KG (273-304); Potassium 3.7 MMOL/L (3.5-5.1)
[2018-05-26] MEDS ORDERED: GLUCAGON 1 MG VIAL IM PRN (08:09)
[2018-05-26] MEDS ORDERED: DEXTROSE 50% 25 GM/50 ML VIAL IV PRN (08:09)
[2018-05-26] MEDS ORDERED: ACETAMINOPHEN 325 MG TABLET PO PRN (08:09)
[2018-05-26] MEDS ORDERED: LEVOFLOXACIN INJ 500 MG in PREMIX 1 EACH IV SCH (09:00)
[2018-05-26] MEDS ORDERED: PANTOPRAZOLE 40 MG TABLET PO SCH (09:00)
[2018-05-26] MEDS: ENOXAPARIN 30 MG/0.3 ML SYRINGE SUBCUT SCH (09:08)
[2018-05-26] MEDS: DOXYCYCLINE HYCLATE 100 MG CAPSULE PO SCH ×2 (11:55→21:16)
[2018-05-26] MEDS ORDERED: VANCOMYCIN INJ 1,000 MG in SODIUM CHLORIDE 0.9% 250 ML IV ONE (13:03)
[2018-05-26] MEDS ORDERED: GENTAMICIN INJ 80 MG in PREMIX 1 EACH IV ONE (13:03)
[2018-05-26] MEDS ORDERED: GENTAMICIN INJ 80 MG in SODIUM CHLORIDE 0.9% 100 ML IV PRN (13:23)
[2018-05-26] MEDS ORDERED: VANCOMYCIN INJ 500 MG in SODIUM CHLORIDE 0.9% 100 ML IV PRN ×2 (13:25→13:54)
[2018-05-26] MEDS ORDERED: VANCOMYCIN INJ 1,250 MG in SODIUM CHLORIDE 0.9% 250 ML IV ONE ×3 (13:30→23:30)
[2018-05-26] MEDS ORDERED: GENTAMICIN INJ 100 MG in PREMIX 1 EACH IV ONE ×3 (13:30→23:30)
[2018-05-26] MEDS: ALBUTEROL/IPRATROPIUM 3 ML NEB RESP TX SCH ×2 (14:05→19:08)
[2018-05-26] MEDS: INSULIN LISPRO 100 UNIT/ML SUBCUT SCH ×3 (16:57→21:32)
[2018-05-26] MEDS: FORMOTEROL 20 MCG/2 ML NEB RESP TX SCH (19:05)
[2018-05-26] MEDS: BUDESONIDE 0.5 MG/2 ML NEB RESP TX SCH (19:08)
[2018-05-26] MEDS: CALCIUM ACETATE 667 MG CAPSULE PO SCH (21:15)
[2018-05-26] MEDS: LIOTHYRONINE 25 MCG TABLET PO SCH (21:15)
[2018-05-26] MEDS: FAMOTIDINE 20 MG TABLET PO SCH (21:15)
[2018-05-26] MEDS: CALCIUM CARBONATE CHEW 500 MG TABLET PO SCH (21:15)
[2018-05-26] MEDS: MONTELUKAST 10 MG TABLET PO SCH (21:15)
[2018-05-26] MEDS: levETIRAcetam 500 MG TABLET PO SCH (21:16)
[2018-05-26] MEDS: GABAPENTIN 300 MG CAPSULE PO SCH (21:16)
[2018-05-26] MEDS: AMIODARONE 200 MG TABLET PO SCH (21:16)
[2018-05-26] MEDS: ZALEPLON 5 MG CAPSULE PO PRN (21:26)
[2018-05-27] MEDS: ALBUTEROL/IPRATROPIUM 3 ML NEB RESP TX SCH ×4 (00:29→19:41)
[2018-05-27 05:59] LABS: Hemoglobin 8.5 GM/DL (12.0-16.0); Immature Granulocytes % 1.4 %; Immature Granulocytes Absolute 0.08 #; Lymphocytes # 0.4 10*3/uL (1.4-4.0); Lymphocytes % 6.3 % (21.3-54.2); Mean Corpuscular HGB Conc 32.7 GM/DL (32-36); Mean Corpuscular Hemoglobin 29 PG (27-34); Mean Corpuscular Volume 87.5 FL (87-102); Monocytes # 0.4 10*3/uL (0.11-0.8); Monocytes % 6.7 % (1.7-12.7); NRBC # 0.13 10*3/uL; Neutrophils % 85.6 % (38.7-73.9); Platelet Count 199 T/CUMM (130-400); Red Blood Count 2.97 MC/CUMM (3.8-5.5); Red Cell Distribution Width 19.8 % (9.3-17.3); White Blood Count 5.9 T/CUMM (4-12)
[2018-05-27 06:22] LABS: Calcium 8.6 MG/DL (8.5-10.1); Potassium 3.9 MMOL/L (3.5-5.1); Thyroid Stimulating Hormone 0.494 uIU/ml (0.358-3.74)
[2018-05-27] MEDS: FORMOTEROL 20 MCG/2 ML NEB RESP TX SCH ×2 (07:08→19:41)
[2018-05-27] MEDS: BUDESONIDE 0.5 MG/2 ML NEB RESP TX SCH ×2 (07:08→19:41)
[2018-05-27] MEDS: INSULIN LISPRO 100 UNIT/ML SUBCUT SCH ×4 (07:59→21:50)
[2018-05-27] MEDS: DILTIAZEM CD 300 MG CAPSULE PO SCH (08:00)
[2018-05-27] MEDS: AMIODARONE 200 MG TABLET PO SCH ×2 (08:00→21:51)
[2018-05-27] MEDS: DOXYCYCLINE HYCLATE 100 MG CAPSULE PO SCH ×2 (08:00→21:50)
[2018-05-27] MEDS: FAMOTIDINE 20 MG TABLET PO SCH ×2 (08:00→21:50)
[2018-05-27] MEDS: FERROUS SULFATE 325 MG TABLET PO SCH (08:00)
[2018-05-27] MEDS: levETIRAcetam 500 MG TABLET PO SCH ×2 (08:00→21:51)
[2018-05-27] MEDS: LIOTHYRONINE 25 MCG TABLET PO SCH ×2 (08:02→21:51)
[2018-05-27] MEDS: GABAPENTIN 300 MG CAPSULE PO SCH ×2 (08:02→21:51)
[2018-05-27] MEDS: CALCIUM ACETATE 667 MG CAPSULE PO SCH ×2 (08:02→16:07)
[2018-05-27] MEDS: ENOXAPARIN 30 MG/0.3 ML SYRINGE SUBCUT SCH (08:02)
[2018-05-27] MEDS: ASPIRIN EC 81 MG TABLET PO SCH (08:02)
[2018-05-27] MEDS: FLUTICASONE/SALMETEROL 250-50 DISKUS 14 DOSE INH SCH (08:02)
[2018-05-27] MEDS: ATORVASTATIN 40 MG TABLET PO SCH (08:02)
[2018-05-27] MEDS: CALCIUM CARBONATE CHEW 500 MG TABLET PO SCH ×2 (08:03→21:51)
[2018-05-27] MEDS: SERTRALINE 50 MG TABLET PO SCH (08:03)
[2018-05-27] MEDS: CETIRIZINE 10 MG TABLET PO SCH (08:03)
[2018-05-27] MEDS: METHOCARBAMOL 500 MG TABLET PO SCH (08:03)
[2018-05-27] MEDS: PANTOPRAZOLE 40 MG TABLET PO SCH (08:03)
[2018-05-27] MEDS ORDERED: LIDOCAINE 1% 20 ML VIAL ONE (12:58)
[2018-05-27] MEDS ORDERED: PROPOFOL 200 MG/20 ML VIAL IV ONE (13:45)
[2018-05-27] MEDS: MONTELUKAST 10 MG TABLET PO SCH (21:50)
[2018-05-27] MEDS: ZALEPLON 5 MG CAPSULE PO PRN (21:57)
[2018-05-28] MEDS: ALBUTEROL/IPRATROPIUM 3 ML NEB RESP TX SCH ×4 (02:27→19:31)
[2018-05-28] MEDS: ZALEPLON 5 MG CAPSULE PO PRN ×2 (03:35→22:11)
[2018-05-28] MEDS: FORMOTEROL 20 MCG/2 ML NEB RESP TX SCH ×2 (07:22→19:31)
[2018-05-28] MEDS: BUDESONIDE 0.5 MG/2 ML NEB RESP TX SCH ×2 (07:22→19:31)
[2018-05-28] MEDS: INSULIN LISPRO 100 UNIT/ML SUBCUT SCH ×4 (08:06→22:11)
[2018-05-28] MEDS: CALCIUM ACETATE 667 MG CAPSULE PO SCH ×2 (08:06→16:02)
[2018-05-28] MEDS: METHOCARBAMOL 500 MG TABLET PO SCH (08:06)
[2018-05-28] MEDS: DILTIAZEM CD 300 MG CAPSULE PO SCH (08:06)
[2018-05-28] MEDS: LIOTHYRONINE 25 MCG TABLET PO SCH ×2 (08:06→22:10)
[2018-05-28] MEDS: SERTRALINE 50 MG TABLET PO SCH (08:06)
[2018-05-28] MEDS: ASPIRIN EC 81 MG TABLET PO SCH (08:06)
[2018-05-28] MEDS: FERROUS SULFATE 325 MG TABLET PO SCH (08:06)
[2018-05-28] MEDS: levETIRAcetam 500 MG TABLET PO SCH ×2 (08:06→22:11)
[2018-05-28] MEDS: CETIRIZINE 10 MG TABLET PO SCH (08:07)
[2018-05-28] MEDS: ATORVASTATIN 40 MG TABLET PO SCH (08:07)
[2018-05-28] MEDS: DOXYCYCLINE HYCLATE 100 MG CAPSULE PO SCH ×2 (08:07→22:11)
[2018-05-28] MEDS: PANTOPRAZOLE 40 MG TABLET PO SCH (08:07)
[2018-05-28] MEDS: FAMOTIDINE 20 MG TABLET PO SCH ×2 (08:07→22:10)
[2018-05-28] MEDS: AMIODARONE 200 MG TABLET PO SCH ×2 (08:07→22:11)
[2018-05-28] MEDS: GABAPENTIN 300 MG CAPSULE PO SCH ×2 (08:07→22:10)
[2018-05-28] MEDS: ENOXAPARIN 30 MG/0.3 ML SYRINGE SUBCUT SCH (08:08)
[2018-05-28] MEDS: FLUTICASONE/SALMETEROL 250-50 DISKUS 14 DOSE INH SCH (08:09)
[2018-05-28] MEDS: CALCIUM CARBONATE CHEW 500 MG TABLET PO SCH ×2 (08:09→22:10)
[2018-05-28] MEDS ORDERED: VANCOMYCIN INJ 500 MG in SODIUM CHLORIDE 0.9% 100 ML IV ONE (18:00)
[2018-05-28] MEDS ORDERED: GENTAMICIN INJ 80 MG in PREMIX 1 EACH IV ONE (18:00)
[2018-05-28] MEDS: MONTELUKAST 10 MG TABLET PO SCH (22:10)
[2018-05-29] MEDS: ALBUTEROL/IPRATROPIUM 3 ML NEB RESP TX SCH (00:11)
[2018-05-29] MEDS: INSULIN LISPRO 100 UNIT/ML SUBCUT SCH ×2 (07:19→11:51)
[2018-05-29] MEDS: BUDESONIDE 0.5 MG/2 ML NEB RESP TX SCH (07:20)
[2018-05-29] MEDS: FORMOTEROL 20 MCG/2 ML NEB RESP TX SCH (07:20)
[2018-05-29] MEDS: ENOXAPARIN 30 MG/0.3 ML SYRINGE SUBCUT SCH (08:03)
[2018-05-29] MEDS: CALCIUM ACETATE 667 MG CAPSULE PO SCH (08:04)
[2018-05-29] MEDS: CALCIUM CARBONATE CHEW 500 MG TABLET PO SCH (08:04)
[2018-05-29] MEDS: PANTOPRAZOLE 40 MG TABLET PO SCH (08:04)
[2018-05-29] MEDS: FERROUS SULFATE 325 MG TABLET PO SCH (08:04)
[2018-05-29] MEDS: CETIRIZINE 10 MG TABLET PO SCH (08:04)
[2018-05-29] MEDS: SERTRALINE 50 MG TABLET PO SCH (08:04)
[2018-05-29] MEDS: GABAPENTIN 300 MG CAPSULE PO SCH (08:05)
[2018-05-29] MEDS: AMIODARONE 200 MG TABLET PO SCH (08:05)
[2018-05-29] MEDS: DOXYCYCLINE HYCLATE 100 MG CAPSULE PO SCH (08:05)
[2018-05-29] MEDS: levETIRAcetam 500 MG TABLET PO SCH (08:05)
[2018-05-29] MEDS: ATORVASTATIN 40 MG TABLET PO SCH (08:05)
[2018-05-29] MEDS: FLUTICASONE/SALMETEROL 250-50 DISKUS 14 DOSE INH SCH (08:05)
[2018-05-29] MEDS: DILTIAZEM CD 300 MG CAPSULE PO SCH (08:05)
[2018-05-29] MEDS: METHOCARBAMOL 500 MG TABLET PO SCH (08:05)
[2018-05-29] MEDS: LIOTHYRONINE 25 MCG TABLET PO SCH (08:05)
[2018-05-29] MEDS: FAMOTIDINE 20 MG TABLET PO SCH (08:05)
[2018-05-29] MEDS: ASPIRIN EC 81 MG TABLET PO SCH (08:05)
[2018-05-29 08:40] VITALS: BP 149/78
[2018-05-29 10:43] LABS: Calcium 8.3 MG/DL (8.5-10.1); Osmolality,Calculated 279.8 MOS/KG (273-304); Potassium 3.5 MMOL/L (3.5-5.1)
== END 2018-05-29 12:40 | disposition home or self-care (01) | DRG 270 ==
LOC: N.ED 05:17 → N.EDINP 05:17 → N.5E 08:39
PROVIDERS: ADMIT Hospitalist; ATTEND Hospitalist

== ENCOUNTER 2018-05-30 16:53 | Inpatient (IN) ==
[2018-05-30] MEDS ORDERED: methylPREDNISolone SOD SUC 125 MG/2 ML VIAL IV STA (17:17)
[2018-05-30] MEDS: ALBUTEROL 2.5 MG/3 ML NEB RESP TX SCH ×3 (17:17→18:09)
[2018-05-30] MEDS ORDERED: ALBUTEROL/IPRATROPIUM 3 ML NEB RESP TX STA (17:17)
[2018-05-30] MEDS ORDERED: ONDANSETRON 4 MG/2 ML VIAL ONE (18:01)
[2018-05-30] MEDS ORDERED: ONDANSETRON 4 MG/2 ML VIAL IV STA (18:10)
[2018-05-30 18:22] LABS: Basophils % 0.3 % (0.0-0.8); Eosinophils # 0.1 10*3/uL (0.0-0.87); Eosinophils % 0.5 % (0.00-10.9); Hematocrit 35.8 VOL% (35.7-47.0); Hemoglobin 11.3 GM/DL (12.0-16.0); Immature Granulocytes % 0.8 %; Immature Granulocytes Absolute 0.09 #; Lymphocytes % 8.5 % (21.3-54.2); Mean Corpuscular HGB Conc 31.6 GM/DL (32-36); Mean Corpuscular Hemoglobin 29 PG (27-34); Mean Corpuscular Volume 90.6 FL (87-102); Mean Platelet Volume 11.1 FL (9.6-12.0); Monocytes # 0.7 10*3/uL (0.11-0.8); Monocytes % 6.3 % (1.7-12.7); NRBC # 0.06 10*3/uL; Neutrophils # 9.7 10*3/uL (1.4-7.4); Neutrophils % 83.6 % (38.7-73.9); Platelet Count 171 T/CUMM (130-400); Red Blood Count 3.95 MC/CUMM (3.8-5.5); Red Cell Distribution Width 21.6 % (9.3-17.3); White Blood Count 11.6 T/CUMM (4-12)
[2018-05-30] MEDS ORDERED: FUROSEMIDE 40 MG/4 ML VIAL IV STA (18:41)
[2018-05-30 18:43] LABS: Albumin 3.5 G/DL (3.4-5.0); Bilirubin,Total 1.4 MG/DL (0.2-1.0); Calcium 9.3 MG/DL (8.5-10.1); Osmolality,Calculated 283.1 MOS/KG (273-304); Potassium 4.4 MMOL/L (3.5-5.1); Total Protein 8.2 G/DL (6.4-8.3)
[2018-05-30] MEDS ORDERED: ALBUTEROL 2.5 MG/3 ML NEB RESP TX SCH (19:30)
[2018-05-30] MEDS ORDERED: ONDANSETRON 4 MG/2 ML VIAL IV PRN (21:33)
[2018-05-30] MEDS ORDERED: ALBUTEROL/IPRATROPIUM 3 ML NEB RESP TX PRN (21:41)
[2018-05-31 05:42] LABS: Hematocrit 25.8 VOL% (35.7-47.0); Hemoglobin 8.3 GM/DL (12.0-16.0); Immature Granulocytes % 0.7 %; Immature Granulocytes Absolute 0.04 #; Lymphocytes # 0.4 10*3/uL (1.4-4.0); Lymphocytes % 6.5 % (21.3-54.2); Mean Corpuscular HGB Conc 32.2 GM/DL (32-36); Mean Corpuscular Hemoglobin 29 PG (27-34); Mean Corpuscular Volume 89.3 FL (87-102); Mean Platelet Volume 10.8 FL (9.6-12.0); Monocytes # 0.1 10*3/uL (0.11-0.8); Monocytes % 1.1 % (1.7-12.7); NRBC # 0.04 10*3/uL; Neutrophils % 91.7 % (38.7-73.9); Platelet Count 142 T/CUMM (130-400); Red Blood Count 2.89 MC/CUMM (3.8-5.5); White Blood Count 5.4 T/CUMM (4-12)
[2018-05-31 06:09] LABS: Lymphocytes 2 % (20-55); Platelet Estimate Adequate; Polychromasia Few; Segmented Neutrophils 98 % (50-85); Target Cells Few; Total Cells Counted 100
[2018-05-31 06:20] LABS: Bilirubin,Total 1.4 MG/DL (0.2-1.0); Calcium 8.3 MG/DL (8.5-10.1); Potassium 4.1 MMOL/L (3.5-5.1); Total Protein 7.2 G/DL (6.4-8.3)
[2018-05-31] MEDS: FORMOTEROL 20 MCG/2 ML NEB RESP TX SCH ×2 (07:10→19:22)
[2018-05-31] MEDS: BUDESONIDE 0.5 MG/2 ML NEB RESP TX SCH ×2 (07:10→19:23)
[2018-05-31] MEDS: levETIRAcetam 500 MG TABLET PO SCH ×2 (08:44→21:22)
[2018-05-31] MEDS: LIOTHYRONINE 25 MCG TABLET PO SCH ×2 (08:44→21:21)
[2018-05-31] MEDS: FAMOTIDINE 20 MG TABLET PO SCH (08:44)
[2018-05-31] MEDS: ATORVASTATIN 40 MG TABLET PO SCH (08:44)
[2018-05-31] MEDS: SERTRALINE 50 MG TABLET PO SCH (08:44)
[2018-05-31] MEDS: PANTOPRAZOLE 40 MG TABLET PO SCH (08:45)
[2018-05-31] MEDS: DOXYCYCLINE HYCLATE 100 MG CAPSULE PO SCH ×2 (08:45→21:21)
[2018-05-31] MEDS: CALCIUM ACETATE 667 MG CAPSULE PO SCH ×2 (08:45→21:21)
[2018-05-31] MEDS: ASPIRIN EC 81 MG TABLET PO SCH (08:45)
[2018-05-31] MEDS: AMIODARONE 200 MG TABLET PO SCH ×2 (08:45→21:22)
[2018-05-31] MEDS: FERROUS SULFATE 325 MG TABLET PO SCH (08:46)
[2018-05-31] MEDS: DILTIAZEM CD 300 MG CAPSULE PO SCH (08:46)
[2018-05-31] MEDS: CALCIUM CARBONATE CHEW 500 MG TABLET PO SCH ×2 (08:46→21:22)
[2018-05-31] MEDS: GABAPENTIN 300 MG CAPSULE PO SCH ×2 (08:46→21:21)
[2018-05-31] MEDS ORDERED: FLUTICASONE INH SCH (09:00)
[2018-05-31] MEDS ORDERED: SALMETEROL INH SCH (09:00)
[2018-05-31] MEDS ORDERED: PRORENAL D PO SCH (09:00)
[2018-05-31] MEDS ORDERED: LIDOCAINE/PRILOCAINE CREAM 5 GM TUBE TOP PRN (12:10)
[2018-05-31] MEDS: methylPREDNISolone SOD SUC 40 MG/1 ML VIAL IV SCH (15:23)
[2018-05-31] MEDS: PIPERACILLIN/TAZOBACTAM 3.375 MG in SODIUM CHLORIDE 0.9% 100 ML IV SCH (15:24)
[2018-05-31] MEDS ORDERED: LIDOCAINE 2% 20 ML VIAL RESP TX ONE (16:58)
[2018-05-31] MEDS: MONTELUKAST 10 MG TABLET PO SCH (21:21)
[2018-06-01] MEDS: PIPERACILLIN/TAZOBACTAM 3.375 MG in SODIUM CHLORIDE 0.9% 100 ML IV SCH ×2 (03:20→17:08)
[2018-06-01] MEDS: methylPREDNISolone SOD SUC 40 MG/1 ML VIAL IV SCH ×2 (03:21→17:08)
[2018-06-01] MEDS: BUDESONIDE 0.5 MG/2 ML NEB RESP TX SCH ×2 (07:15→19:12)
[2018-06-01] MEDS: FORMOTEROL 20 MCG/2 ML NEB RESP TX SCH ×2 (07:17→19:12)
[2018-06-01] MEDS ORDERED: PROMETHAZINE 25 MG/1 ML VIAL IM ONE (08:30)
[2018-06-01] MEDS ORDERED: MIDAZOLAM 2 MG/2 ML VIAL IV ONE (09:00)
[2018-06-01] MEDS ORDERED: LIDOCAINE 2% VISCOUS 100 ML BOTTLE SWISH/SPIT ONE (09:00)
[2018-06-01] MEDS ORDERED: LIDOCAINE 2% 20 ML VIAL RESP TX ONE (09:00)
[2018-06-01] MEDS ORDERED: LIDOCAINE 1% 20 ML VIAL MISC INJ ONE (09:00)
[2018-06-01] MEDS ORDERED: MIDAZOLAM 2 MG/2 ML VIAL ONE (10:24)
[2018-06-01 10:59] LABS: Hematocrit 25.2 VOL% (35.7-47.0); Hemoglobin 8.2 GM/DL (12.0-16.0); Immature Granulocytes % 0.7 %; Immature Granulocytes Absolute 0.08 #; Lymphocytes # 0.3 10*3/uL (1.4-4.0); Lymphocytes % 2.7 % (21.3-54.2); Mean Corpuscular HGB Conc 32.5 GM/DL (32-36); Mean Corpuscular Hemoglobin 29 PG (27-34); Mean Corpuscular Volume 88.4 FL (87-102); Mean Platelet Volume 11.2 FL (9.6-12.0); Monocytes # 0.4 10*3/uL (0.11-0.8); Monocytes % 3.5 % (1.7-12.7); NRBC # 0.28 10*3/uL; Neutrophils # 10.3 10*3/uL (1.4-7.4); Neutrophils % 93.1 % (38.7-73.9); Platelet Count 143 T/CUMM (130-400); Red Blood Count 2.85 MC/CUMM (3.8-5.5); Red Cell Distribution Width 20.7 % (9.3-17.3)
[2018-06-01 11:21] LABS: Calcium 8.6 MG/DL (8.5-10.1); Osmolality,Calculated 294.4 MOS/KG (273-304); Potassium 4.4 MMOL/L (3.5-5.1)
[2018-06-01 11:22] LABS: Hypochromasia 1+; Lymphocytes 1 % (20-55); Nucleated Red Blood Cells 5 (0-5); Segmented Neutrophils 96 % (50-85); Total Cells Counted 100
[2018-06-01 11:23] LABS: Microcytosis 1+; Polychromasia Slight
[2018-06-01 11:24] LABS: Ovalocytes Slight; Platelet Estimate Adequate; Target Cells Few; Tear Drop Cells Slight
[2018-06-01] MEDS: ATORVASTATIN 40 MG TABLET PO SCH (12:27)
[2018-06-01] MEDS: LIOTHYRONINE 25 MCG TABLET PO SCH ×2 (12:27→20:59)
[2018-06-01] MEDS: levETIRAcetam 500 MG TABLET PO SCH ×2 (12:27→20:58)
[2018-06-01] MEDS: FAMOTIDINE 20 MG TABLET PO SCH (12:28)
[2018-06-01] MEDS: CALCIUM CARBONATE CHEW 500 MG TABLET PO SCH ×2 (12:28→20:58)
[2018-06-01] MEDS: ASPIRIN EC 81 MG TABLET PO SCH (12:28)
[2018-06-01] MEDS: GABAPENTIN 300 MG CAPSULE PO SCH ×2 (12:28→20:59)
[2018-06-01] MEDS: DILTIAZEM CD 300 MG CAPSULE PO SCH (12:28)
[2018-06-01] MEDS: CALCIUM ACETATE 667 MG CAPSULE PO SCH ×2 (12:28→20:59)
[2018-06-01] MEDS: DOXYCYCLINE HYCLATE 100 MG CAPSULE PO SCH ×2 (12:28→20:59)
[2018-06-01] MEDS: PANTOPRAZOLE 40 MG TABLET PO SCH (12:29)
[2018-06-01] MEDS: SERTRALINE 50 MG TABLET PO SCH (12:29)
[2018-06-01] MEDS: FERROUS SULFATE 325 MG TABLET PO SCH (12:29)
[2018-06-01] MEDS: AMIODARONE 200 MG TABLET PO SCH ×2 (12:29→20:59)
[2018-06-01] MEDS: MONTELUKAST 10 MG TABLET PO SCH (20:58)
[2018-06-01] MEDS: ZALEPLON 5 MG CAPSULE PO PRN (20:59)
[2018-06-01] MEDS ORDERED: INSULIN GLARGINE 100 UNIT/ML SUBCUT SCH (21:00)
[2018-06-02] MEDS: methylPREDNISolone SOD SUC 40 MG/1 ML VIAL IV SCH ×2 (03:55→17:30)
[2018-06-02] MEDS: PIPERACILLIN/TAZOBACTAM 3.375 MG in SODIUM CHLORIDE 0.9% 100 ML IV SCH ×2 (03:56→17:30)
[2018-06-02] MEDS: BUDESONIDE 0.5 MG/2 ML NEB RESP TX SCH ×2 (07:55→19:40)
[2018-06-02] MEDS: FORMOTEROL 20 MCG/2 ML NEB RESP TX SCH ×2 (07:55→19:40)
[2018-06-02] MEDS ORDERED: EPOETIN ALFA 10,000 UNIT/1 ML VIAL IV PRN (08:54)
[2018-06-02] MEDS: FAMOTIDINE 20 MG TABLET PO SCH (09:10)
[2018-06-02] MEDS: CALCIUM ACETATE 667 MG CAPSULE PO SCH ×2 (09:10→20:52)
[2018-06-02] MEDS: CALCIUM CARBONATE CHEW 500 MG TABLET PO SCH ×2 (09:10→20:51)
[2018-06-02] MEDS: DILTIAZEM CD 300 MG CAPSULE PO SCH (09:10)
[2018-06-02] MEDS: levETIRAcetam 500 MG TABLET PO SCH ×2 (09:10→20:52)
[2018-06-02] MEDS: SERTRALINE 50 MG TABLET PO SCH (09:10)
[2018-06-02] MEDS: LIOTHYRONINE 25 MCG TABLET PO SCH ×2 (09:10→20:52)
[2018-06-02] MEDS: PANTOPRAZOLE 40 MG TABLET PO SCH (09:11)
[2018-06-02] MEDS: AMIODARONE 200 MG TABLET PO SCH (09:11)
[2018-06-02] MEDS: ATORVASTATIN 40 MG TABLET PO SCH (09:11)
[2018-06-02] MEDS: ASPIRIN EC 81 MG TABLET PO SCH (09:11)
[2018-06-02] MEDS: GABAPENTIN 300 MG CAPSULE PO SCH ×2 (09:11→20:52)
[2018-06-02] MEDS: DOXYCYCLINE HYCLATE 100 MG CAPSULE PO SCH ×2 (09:11→20:52)
[2018-06-02] MEDS: FERROUS SULFATE 325 MG TABLET PO SCH (09:14)
[2018-06-02] MEDS ORDERED: INSULIN GLARGINE 100 UNIT/ML SUBCUT SCH (13:43)
[2018-06-02 14:18] LABS: Hematocrit 24.8 VOL% (35.7-47.0); Hemoglobin 7.9 GM/DL (12.0-16.0); Immature Granulocytes % 0.7 %; Immature Granulocytes Absolute 0.07 #; Lymphocytes # 0.2 10*3/uL (1.4-4.0); Lymphocytes % 2.2 % (21.3-54.2); Mean Corpuscular HGB Conc 31.9 GM/DL (32-36); Mean Corpuscular Hemoglobin 28 PG (27-34); Mean Corpuscular Volume 88.9 FL (87-102); Monocytes # 0.4 10*3/uL (0.11-0.8); Monocytes % 4.2 % (1.7-12.7); NRBC # 0.31 10*3/uL; Neutrophils # 9.7 10*3/uL (1.4-7.4); Neutrophils % 92.9 % (38.7-73.9); Platelet Count 134 T/CUMM (130-400); Red Blood Count 2.79 MC/CUMM (3.8-5.5); Red Cell Distribution Width 20.4 % (9.3-17.3); White Blood Count 10.4 T/CUMM (4-12)
[2018-06-02 15:05] LABS: Folate 8.8 NG/ML (5.4-24.0); Vitamin B12 896 PG/ML (211-911)
[2018-06-02 15:17] LABS: Lymphocytes 3 % (20-55); Nucleated Red Blood Cells 4 (0-5); Platelet Estimate Normal; Segmented Neutrophils 94 % (50-85); Total Cells Counted 100
[2018-06-02 15:18] LABS: Hypochromasia Slight; Macrocytosis Slight
[2018-06-02 15:23] LABS: Sedimentation Rate-Westergren 30 MM/HR (0-30)
[2018-06-02] MEDS: MONTELUKAST 10 MG TABLET PO SCH (20:52)
[2018-06-02] MEDS: DILTIAZEM CD 120 MG CAPSULE PO SCH (20:52)
[2018-06-02] MEDS: ZALEPLON 5 MG CAPSULE PO PRN (20:57)
[2018-06-03] MEDS: methylPREDNISolone SOD SUC 40 MG/1 ML VIAL IV SCH (04:09)
[2018-06-03] MEDS: PIPERACILLIN/TAZOBACTAM 3.375 MG in SODIUM CHLORIDE 0.9% 100 ML IV SCH (04:09)
[2018-06-03 07:10] LABS: % Iron Saturation 41.3 % (18-50)
[2018-06-03 07:14] LABS: Ferritin 1335.2 ng/ml (8-252)
[2018-06-03] MEDS: BUDESONIDE 0.5 MG/2 ML NEB RESP TX SCH (07:21)
[2018-06-03] MEDS: FORMOTEROL 20 MCG/2 ML NEB RESP TX SCH (07:21)
[2018-06-03 08:51] LABS: Hemoglobin A1 (Alkaline) 59.6 % (96.5-98.5); Hemoglobin S (Alkaline) 38.4 %
[2018-06-03] MEDS ORDERED: AMIODARONE 200 MG TABLET PO SCH (09:00)
[2018-06-03] MEDS ORDERED: DILTIAZEM CD 300 MG CAPSULE PO SCH (09:00)
[2018-06-03] MEDS: ATORVASTATIN 40 MG TABLET PO SCH (09:35)
[2018-06-03] MEDS: CALCIUM CARBONATE CHEW 500 MG TABLET PO SCH (10:11)
[2018-06-03] MEDS: DILTIAZEM CD 120 MG CAPSULE PO SCH (10:12)
[2018-06-03] MEDS: PANTOPRAZOLE 40 MG TABLET PO SCH (10:14)
[2018-06-03] MEDS: ASPIRIN EC 81 MG TABLET PO SCH (10:14)
[2018-06-03] MEDS: LIOTHYRONINE 25 MCG TABLET PO SCH (10:16)
[2018-06-03] MEDS: CALCIUM ACETATE 667 MG CAPSULE PO SCH (10:17)
[2018-06-03] MEDS: DOXYCYCLINE HYCLATE 100 MG CAPSULE PO SCH (10:17)
[2018-06-03] MEDS: SERTRALINE 50 MG TABLET PO SCH (10:18)
[2018-06-03] MEDS: levETIRAcetam 500 MG TABLET PO SCH (10:26)
[2018-06-03] MEDS: FAMOTIDINE 20 MG TABLET PO SCH (10:26)
[2018-06-03] MEDS: GABAPENTIN 300 MG CAPSULE PO SCH (10:26)
[2018-06-03] MEDS: FERROUS SULFATE 325 MG TABLET PO SCH (10:27)
[2018-06-03] MEDS ORDERED: ACETAMINOPHEN 325 MG TABLET PO PRN (13:19)
[2018-06-03 13:57] VITALS: BP 116/69
== END 2018-06-03 14:00 | DRG 177 ==
LOC: N.ED 16:53 → SUATTDRO 21:33 → N.EDINP 21:33 → N.5E 22:11
PROVIDERS: ATTEND Hospitalist

== ENCOUNTER 2018-06-24 12:40 | Inpatient (IN) ==
[2018-06-24 14:04] LABS: Eosinophils # 0.1 10*3/uL (0.0-0.87); Eosinophils % 1.1 % (0.00-10.9); Hematocrit 24.5 VOL% (35.7-47.0); Hemoglobin 7.9 GM/DL (12.0-16.0); Immature Granulocytes % 1.3 %; Immature Granulocytes Absolute 0.11 #; Lymphocytes # 0.5 10*3/uL (1.4-4.0); Lymphocytes % 6.2 % (21.3-54.2); Mean Corpuscular HGB Conc 32.2 GM/DL (32-36); Mean Corpuscular Hemoglobin 29 PG (27-34); Mean Corpuscular Volume 91.1 FL (87-102); Mean Platelet Volume 12.2 FL (9.6-12.0); Monocytes # 0.3 10*3/uL (0.11-0.8); Monocytes % 3.8 % (1.7-12.7); Neutrophils # 7.4 10*3/uL (1.4-7.4); Neutrophils % 87.6 % (38.7-73.9); Red Blood Count 2.69 MC/CUMM (3.8-5.5); White Blood Count 8.4 T/CUMM (4-12)
[2018-06-24 14:13] LABS: Platelet Count 58 T/CUMM (130-400)
[2018-06-24 14:26] LABS: Lactic Acid 3.7 MMOL/L (0.4-2.0)
[2018-06-24 14:27] LABS: Albumin 2.9 G/DL (3.4-5.0); Bilirubin,Total 0.8 MG/DL (0.2-1.0); Calcium 7.8 MG/DL (8.5-10.1); Osmolality,Calculated 295.8 MOS/KG (273-304); Potassium 4.3 MMOL/L (3.5-5.1); Total Protein 6.4 G/DL (6.4-8.3)
[2018-06-24] MEDS ORDERED: ACETAMINOPHEN 500 MG TABLET ONE (15:38)
[2018-06-24] MEDS ORDERED: ACETAMINOPHEN 500 MG TABLET PO STA (15:40)
[2018-06-24] MEDS ORDERED: VANCOMYCIN INJ 1,000 MG in SODIUM CHLORIDE 0.9% 250 ML IV STA (15:57)
[2018-06-24] MEDS ORDERED: CEFEPIME 1,000 MG in SYRINGE 1 EACH IV PRN (16:00)
[2018-06-24] MEDS ORDERED: DEXTROSE 50% 25 GM/50 ML VIAL IV PRN (16:08)
[2018-06-24] MEDS ORDERED: GLUCAGON 1 MG VIAL IM PRN (16:08)
[2018-06-24] MEDS ORDERED: ALBUTEROL/IPRATROPIUM 3 ML NEB RESP TX PRN (16:09)
[2018-06-24] MEDS ORDERED: EPOETIN ALFA 10,000 UNIT/1 ML VIAL IV PRN (16:09)
[2018-06-24] MEDS ORDERED: CEFEPIME 1,000 MG VIAL ONE (16:22)
[2018-06-24 17:20] LABS: Hepatitis A Ab IgM Quant 0.04 Index; Hepatitis A Ab IgM Result Negative (Negative); Hepatitis B Core IgM Quant 0.14 Index; Hepatitis B Core IgM Result Negative (Negative); Hepatitis B Surface Ag Quant 0.13 Index; Hepatitis B Surface Ag Result Negative (Negative); Hepatitis C Virus Ab Quant < 0.02 Index; Hepatitis C Virus Ab Result Negative (Negative)
[2018-06-24] MEDS: MULTIVITAMIN (PRENATAL) TABLET PO SCH (18:23)
[2018-06-24] MEDS: DILTIAZEM 30 MG TABLET PO SCH (18:23)
[2018-06-24] MEDS: CALCIUM ACETATE 667 MG CAPSULE PO SCH (18:24)
[2018-06-24] MEDS: ASCORBIC ACID 500 MG TABLET PO SCH (18:24)
[2018-06-24] MEDS: SERTRALINE 50 MG TABLET PO SCH (18:24)
[2018-06-24] MEDS: FAMOTIDINE 20 MG TABLET PO SCH (18:24)
[2018-06-24] MEDS: ATORVASTATIN 40 MG TABLET PO SCH (18:25)
[2018-06-24] MEDS: AMIODARONE 200 MG TABLET PO SCH (18:25)
[2018-06-24] MEDS: PANTOPRAZOLE 40 MG TABLET PO SCH (18:25)
[2018-06-24] MEDS: predniSONE 20 MG TABLET PO SCH (18:25)
[2018-06-24] MEDS: levETIRAcetam 500 MG TABLET PO SCH (18:25)
[2018-06-24] MEDS: BUDESONIDE 0.5 MG/2 ML NEB RESP TX SCH (19:29)
[2018-06-24] MEDS: MONTELUKAST 10 MG TABLET PO SCH (21:04)
[2018-06-24] MEDS: GABAPENTIN 300 MG CAPSULE PO SCH (21:04)
[2018-06-24] MEDS: CALCIUM CARBONATE CHEW 500 MG TABLET PO SCH (21:04)
[2018-06-24] MEDS: clonazePAM 0.5 MG TABLET PO SCH (21:04)
[2018-06-24] MEDS: INSULIN GLARGINE 100 UNIT/ML SUBCUT SCH ×2 (21:05→21:14)
[2018-06-24] MEDS: LIOTHYRONINE 25 MCG TABLET PO SCH ×2 (21:07→21:14)
[2018-06-24] MEDS: ZALEPLON 5 MG CAPSULE PO PRN (21:17)
[2018-06-25] MEDS: BUDESONIDE 0.5 MG/2 ML NEB RESP TX SCH ×2 (07:35→19:16)
[2018-06-25] MEDS: ATORVASTATIN 40 MG TABLET PO SCH (08:38)
[2018-06-25] MEDS: levETIRAcetam 500 MG TABLET PO SCH (08:38)
[2018-06-25] MEDS: ASCORBIC ACID 500 MG TABLET PO SCH (08:38)
[2018-06-25] MEDS: predniSONE 20 MG TABLET PO SCH (08:38)
[2018-06-25] MEDS: CALCIUM ACETATE 667 MG CAPSULE PO SCH ×3 (08:39→16:48)
[2018-06-25] MEDS: DILTIAZEM 30 MG TABLET PO SCH (08:39)
[2018-06-25] MEDS: LIOTHYRONINE 25 MCG TABLET PO SCH ×2 (08:39→21:16)
[2018-06-25] MEDS: GABAPENTIN 300 MG CAPSULE PO SCH ×3 (08:39→21:16)
[2018-06-25] MEDS: CALCIUM CARBONATE CHEW 500 MG TABLET PO SCH ×2 (08:40→21:16)
[2018-06-25] MEDS: FAMOTIDINE 20 MG TABLET PO SCH (08:40)
[2018-06-25] MEDS: MULTIVITAMIN (PRENATAL) TABLET PO SCH (08:40)
[2018-06-25] MEDS: AMIODARONE 200 MG TABLET PO SCH (08:40)
[2018-06-25] MEDS: PANTOPRAZOLE 40 MG TABLET PO SCH (08:40)
[2018-06-25] MEDS: SERTRALINE 50 MG TABLET PO SCH (08:54)
[2018-06-25] MEDS: MONTELUKAST 10 MG TABLET PO SCH (21:16)
[2018-06-25] MEDS: clonazePAM 0.5 MG TABLET PO SCH (21:16)
[2018-06-25] MEDS: INSULIN GLARGINE 100 UNIT/ML SUBCUT SCH (21:25)
[2018-06-25] MEDS: ZALEPLON 5 MG CAPSULE PO PRN (21:25)
[2018-06-26] MEDS: traMADol 50 MG TABLET PO PRN ×3 (04:30→21:51)
[2018-06-26 05:29] LABS: Basophils % 0.1 % (0.0-0.8); Eosinophils # 0.1 10*3/uL (0.0-0.87); Eosinophils % 1.8 % (0.00-10.9); Hematocrit 22.8 VOL% (35.7-47.0); Hemoglobin 7.1 GM/DL (12.0-16.0); Immature Granulocytes % 0.6 %; Immature Granulocytes Absolute 0.04 #; Lymphocytes # 1.5 10*3/uL (1.4-4.0); Lymphocytes % 22.1 % (21.3-54.2); Mean Corpuscular HGB Conc 31.1 GM/DL (32-36); Mean Corpuscular Hemoglobin 28 PG (27-34); Mean Corpuscular Volume 90.5 FL (87-102); Mean Platelet Volume 11.7 FL (9.6-12.0); Monocytes # 0.7 10*3/uL (0.11-0.8); Monocytes % 10.4 % (1.7-12.7); NRBC # 0.02 10*3/uL; Neutrophils # 4.4 10*3/uL (1.4-7.4); Red Blood Count 2.52 MC/CUMM (3.8-5.5); Red Cell Distribution Width 20.5 % (9.3-17.3); White Blood Count 6.8 T/CUMM (4-12)
[2018-06-26 05:33] LABS: Platelet Count 79 T/CUMM (130-400)
[2018-06-26 06:34] LABS: Hypochromasia 1+; Platelet Estimate Decreased; Target Cells 1+
[2018-06-26 06:35] LABS: Microcytosis 2+; Ovalocytes 1+
[2018-06-26 06:36] LABS: Anisocytosis 1+
[2018-06-26] MEDS: BUDESONIDE 0.5 MG/2 ML NEB RESP TX SCH ×2 (07:30→18:55)
[2018-06-26] MEDS: GABAPENTIN 300 MG CAPSULE PO SCH ×3 (08:43→21:48)
[2018-06-26] MEDS: CALCIUM CARBONATE CHEW 500 MG TABLET PO SCH ×2 (08:43→21:48)
[2018-06-26] MEDS: PANTOPRAZOLE 40 MG TABLET PO SCH (08:43)
[2018-06-26] MEDS: SERTRALINE 50 MG TABLET PO SCH (08:43)
[2018-06-26] MEDS: AMIODARONE 200 MG TABLET PO SCH (08:43)
[2018-06-26] MEDS: DILTIAZEM 30 MG TABLET PO SCH (08:43)
[2018-06-26] MEDS: ATORVASTATIN 40 MG TABLET PO SCH (08:43)
[2018-06-26] MEDS: CALCIUM ACETATE 667 MG CAPSULE PO SCH ×3 (08:43→17:17)
[2018-06-26] MEDS: MULTIVITAMIN (PRENATAL) TABLET PO SCH (08:43)
[2018-06-26] MEDS: LIOTHYRONINE 25 MCG TABLET PO SCH ×2 (08:43→21:48)
[2018-06-26] MEDS: predniSONE 20 MG TABLET PO SCH (08:43)
[2018-06-26] MEDS: levETIRAcetam 500 MG TABLET PO SCH (08:43)
[2018-06-26] MEDS: FAMOTIDINE 20 MG TABLET PO SCH (08:44)
[2018-06-26] MEDS: ASCORBIC ACID 500 MG TABLET PO SCH (12:10)
[2018-06-26] MEDS: ACETAMINOPHEN 325 MG TABLET PO PRN (14:38)
[2018-06-26] MEDS: INSULIN GLARGINE 100 UNIT/ML SUBCUT SCH (21:48)
[2018-06-26] MEDS: clonazePAM 0.5 MG TABLET PO SCH (21:48)
[2018-06-26] MEDS: MONTELUKAST 10 MG TABLET PO SCH (21:48)
[2018-06-26] MEDS: ZALEPLON 5 MG CAPSULE PO PRN (21:53)
[2018-06-27] MEDS: ACETAMINOPHEN 325 MG TABLET PO PRN ×3 (01:58→20:49)
[2018-06-27] MEDS: BUDESONIDE 0.5 MG/2 ML NEB RESP TX SCH ×2 (07:30→19:34)
[2018-06-27] MEDS: DILTIAZEM 30 MG TABLET PO SCH (08:56)
[2018-06-27] MEDS: CALCIUM ACETATE 667 MG CAPSULE PO SCH ×4 (08:56→17:09)
[2018-06-27] MEDS: LIOTHYRONINE 25 MCG TABLET PO SCH ×2 (08:56→20:49)
[2018-06-27] MEDS: predniSONE 20 MG TABLET PO SCH (08:56)
[2018-06-27] MEDS: SERTRALINE 50 MG TABLET PO SCH (08:57)
[2018-06-27] MEDS: PANTOPRAZOLE 40 MG TABLET PO SCH (08:57)
[2018-06-27] MEDS: AMIODARONE 200 MG TABLET PO SCH (08:57)
[2018-06-27] MEDS: CALCIUM CARBONATE CHEW 500 MG TABLET PO SCH ×2 (08:57→20:48)
[2018-06-27] MEDS: ATORVASTATIN 40 MG TABLET PO SCH (08:57)
[2018-06-27] MEDS: levETIRAcetam 500 MG TABLET PO SCH (08:57)
[2018-06-27] MEDS: MULTIVITAMIN (PRENATAL) TABLET PO SCH (08:57)
[2018-06-27] MEDS: ASCORBIC ACID 500 MG TABLET PO SCH (08:57)
[2018-06-27] MEDS: GABAPENTIN 300 MG CAPSULE PO SCH (08:57)
[2018-06-27] MEDS ORDERED: GENTAMICIN INJ 140 MG in SODIUM CHLORIDE 0.9% 100 ML IV PRN (09:26)
[2018-06-27] MEDS ORDERED: GENTAMICIN INJ 240 MG in SODIUM CHLORIDE 0.9% 100 ML IV ONE (10:00)
[2018-06-27] MEDS: FAMOTIDINE 20 MG TABLET PO SCH (12:52)
[2018-06-27] MEDS: CEFEPIME 1,000 MG in SYRINGE 1 EACH IV SCH (17:50)
[2018-06-27] MEDS: MONTELUKAST 10 MG TABLET PO SCH (20:48)
[2018-06-27] MEDS: clonazePAM 0.5 MG TABLET PO SCH (20:48)
[2018-06-27] MEDS: ZALEPLON 5 MG CAPSULE PO PRN (20:48)
[2018-06-27] MEDS: INSULIN GLARGINE 100 UNIT/ML SUBCUT SCH (21:50)
[2018-06-28] MEDS: BUDESONIDE 0.5 MG/2 ML NEB RESP TX SCH ×2 (07:11→19:31)
[2018-06-28] MEDS: ATORVASTATIN 40 MG TABLET PO SCH (08:59)
[2018-06-28] MEDS: FAMOTIDINE 20 MG TABLET PO SCH (08:59)
[2018-06-28] MEDS: LIOTHYRONINE 25 MCG TABLET PO SCH ×2 (08:59→22:03)
[2018-06-28] MEDS: SERTRALINE 50 MG TABLET PO SCH (08:59)
[2018-06-28] MEDS: CALCIUM CARBONATE CHEW 500 MG TABLET PO SCH ×2 (08:59→21:08)
[2018-06-28] MEDS: MULTIVITAMIN (PRENATAL) TABLET PO SCH (08:59)
[2018-06-28] MEDS: AMIODARONE 200 MG TABLET PO SCH (09:00)
[2018-06-28] MEDS: PANTOPRAZOLE 40 MG TABLET PO SCH ×2 (09:00→21:09)
[2018-06-28] MEDS: GABAPENTIN 300 MG CAPSULE PO SCH (09:00)
[2018-06-28] MEDS: levETIRAcetam 500 MG TABLET PO SCH (09:00)
[2018-06-28] MEDS: ASCORBIC ACID 500 MG TABLET PO SCH (09:00)
[2018-06-28] MEDS: DILTIAZEM 30 MG TABLET PO SCH (09:03)
[2018-06-28] MEDS: CALCIUM ACETATE 667 MG CAPSULE PO SCH ×3 (09:13→17:36)
[2018-06-28] MEDS: predniSONE 20 MG TABLET PO SCH (09:14)
[2018-06-28] MEDS ORDERED: ONDANSETRON 4 MG/2 ML VIAL IV PRN (09:21)
[2018-06-28 10:46] LABS: Eosinophils % 0.2 % (0.00-10.9); Hematocrit 20.8 VOL% (35.7-47.0); Hemoglobin 6.7 GM/DL (12.0-16.0); Immature Granulocytes % 1.3 %; Immature Granulocytes Absolute 0.07 #; Lymphocytes # 0.8 10*3/uL (1.4-4.0); Mean Corpuscular HGB Conc 32.2 GM/DL (32-36); Mean Corpuscular Hemoglobin 29 PG (27-34); Mean Corpuscular Volume 89.7 FL (87-102); Mean Platelet Volume 11.5 FL (9.6-12.0); Monocytes # 0.4 10*3/uL (0.11-0.8); Monocytes % 7.3 % (1.7-12.7); NRBC # 0.07 10*3/uL; Neutrophils % 76.2 % (38.7-73.9); Platelet Count 163 T/CUMM (130-400); Red Blood Count 2.32 MC/CUMM (3.8-5.5); Red Cell Distribution Width 19.9 % (9.3-17.3); White Blood Count 5.2 T/CUMM (4-12)
[2018-06-28] MEDS ORDERED: SODIUM CHLORIDE 0.9% 1,000 ML IV PRN (10:50)
[2018-06-28] MEDS: CEFEPIME 1,000 MG in SYRINGE 1 EACH IV SCH (17:36)
[2018-06-28] MEDS: clonazePAM 0.5 MG TABLET PO SCH (21:08)
[2018-06-28] MEDS: MONTELUKAST 10 MG TABLET PO SCH (21:08)
[2018-06-28] MEDS: ACETAMINOPHEN 325 MG TABLET PO PRN (21:09)
[2018-06-28] MEDS ORDERED: diphenhydrAMINE 50 MG/1 ML VIAL IM ONE (21:49)
[2018-06-28] MEDS: INSULIN GLARGINE 100 UNIT/ML SUBCUT SCH (22:03)
[2018-06-29 05:30] LABS: Basophils % 0.1 % (0.0-0.8); Eosinophils # 0.1 10*3/uL (0.0-0.87); Eosinophils % 1.3 % (0.00-10.9); Hematocrit 29.2 VOL% (35.7-47.0); Hemoglobin 9.4 GM/DL (12.0-16.0); Immature Granulocytes % 3.4 %; Immature Granulocytes Absolute 0.23 #; Lymphocytes # 1.7 10*3/uL (1.4-4.0); Lymphocytes % 24.7 % (21.3-54.2); Mean Corpuscular HGB Conc 32.2 GM/DL (32-36); Mean Corpuscular Hemoglobin 29 PG (27-34); Mean Corpuscular Volume 88.8 FL (87-102); Mean Platelet Volume 11.6 FL (9.6-12.0); Monocytes # 0.9 10*3/uL (0.11-0.8); Monocytes % 13.9 % (1.7-12.7); NRBC # 0.26 10*3/uL; Neutrophils # 3.8 10*3/uL (1.4-7.4); Neutrophils % 56.6 % (38.7-73.9); Platelet Count 151 T/CUMM (130-400); Red Blood Count 3.29 MC/CUMM (3.8-5.5); Red Cell Distribution Width 19.9 % (9.3-17.3); White Blood Count 6.7 T/CUMM (4-12)
[2018-06-29 05:38] LABS: Albumin 2.8 G/DL (3.4-5.0); Bilirubin,Total 2.1 MG/DL (0.2-1.0); Calcium 8.3 MG/DL (8.5-10.1); Potassium 4.5 MMOL/L (3.5-5.1); Total Protein 6.4 G/DL (6.4-8.3)
[2018-06-29] MEDS: BUDESONIDE 0.5 MG/2 ML NEB RESP TX SCH ×2 (07:49→19:30)
[2018-06-29] MEDS ORDERED: DEXTROSE 50% 25 GM/50 ML VIAL IV ONE ×2 (07:51→08:05)
[2018-06-29] MEDS ORDERED: PROPOFOL 200 MG/20 ML VIAL IV ONE (10:00)
[2018-06-29] MEDS ORDERED: PHENYLEPHRINE 1 MG/10 ML SYRINGE IV ONE (10:00)
[2018-06-29] MEDS ORDERED: LIDOCAINE 100 MG/5 ML SYRINGE ONE (10:00)
[2018-06-29] MEDS: CALCIUM ACETATE 667 MG CAPSULE PO SCH ×3 (10:55→18:06)
[2018-06-29] MEDS: PANTOPRAZOLE 40 MG TABLET PO SCH ×3 (10:56→21:03)
[2018-06-29] MEDS: CALCIUM CARBONATE CHEW 500 MG TABLET PO SCH ×2 (15:10→21:03)
[2018-06-29] MEDS: SERTRALINE 50 MG TABLET PO SCH (15:10)
[2018-06-29] MEDS: GABAPENTIN 300 MG CAPSULE PO SCH (15:10)
[2018-06-29] MEDS: levETIRAcetam 500 MG TABLET PO SCH (15:10)
[2018-06-29] MEDS: ATORVASTATIN 40 MG TABLET PO SCH (15:11)
[2018-06-29] MEDS: LIOTHYRONINE 25 MCG TABLET PO SCH ×2 (15:11→21:01)
[2018-06-29] MEDS: DILTIAZEM 30 MG TABLET PO SCH (15:11)
[2018-06-29] MEDS: MULTIVITAMIN (PRENATAL) TABLET PO SCH (15:11)
[2018-06-29] MEDS: predniSONE 20 MG TABLET PO SCH (15:12)
[2018-06-29] MEDS: FLUCONAZOLE 100 MG TABLET PO SCH (15:13)
[2018-06-29] MEDS: ASCORBIC ACID 500 MG TABLET PO SCH ×2 (15:30→21:03)
[2018-06-29] MEDS: CEFEPIME 1,000 MG in SYRINGE 1 EACH IV SCH (18:06)
[2018-06-29] MEDS: clonazePAM 0.5 MG TABLET PO SCH (21:01)
[2018-06-29] MEDS: MONTELUKAST 10 MG TABLET PO SCH (21:03)
[2018-06-29] MEDS: ACETAMINOPHEN 325 MG TABLET PO PRN (21:04)
[2018-06-29] MEDS: ZALEPLON 5 MG CAPSULE PO PRN (21:06)
[2018-06-30 06:29] LABS: Basophils % 0.2 % (0.0-0.8); Immature Granulocytes % 2.2 %; Immature Granulocytes Absolute 0.13 #; Lymphocytes # 0.7 10*3/uL (1.4-4.0); Lymphocytes % 11.3 % (21.3-54.2); Mean Corpuscular HGB Conc 32.1 GM/DL (32-36); Mean Corpuscular Hemoglobin 29 PG (27-34); Mean Corpuscular Volume 88.9 FL (87-102); Monocytes # 0.7 10*3/uL (0.11-0.8); Monocytes % 12.4 % (1.7-12.7); Neutrophils # 4.4 10*3/uL (1.4-7.4); Neutrophils % 73.9 % (38.7-73.9); Platelet Count 165 T/CUMM (130-400); Red Blood Count 3.15 MC/CUMM (3.8-5.5); Red Cell Distribution Width 20.1 % (9.3-17.3)
[2018-06-30 06:55] LABS: Albumin 2.6 G/DL (3.4-5.0); Bilirubin,Total 0.8 MG/DL (0.2-1.0); Calcium 8.4 MG/DL (8.5-10.1); Osmolality,Calculated 293.1 MOS/KG (273-304); Potassium 5.2 MMOL/L (3.5-5.1); Total Protein 6.6 G/DL (6.4-8.3)
[2018-06-30] MEDS: BUDESONIDE 0.5 MG/2 ML NEB RESP TX SCH (08:38)
[2018-06-30 13:17] VITALS: BP 130/79
[2018-06-30] MEDS: CALCIUM ACETATE 667 MG CAPSULE PO SCH ×2 (13:40→13:48)
[2018-06-30] MEDS: CALCIUM CARBONATE CHEW 500 MG TABLET PO SCH (13:48)
[2018-06-30] MEDS: ASCORBIC ACID 500 MG TABLET PO SCH (13:49)
[2018-06-30] MEDS: FLUCONAZOLE 100 MG TABLET PO SCH (13:50)
[2018-06-30] MEDS: SERTRALINE 50 MG TABLET PO SCH (13:50)
[2018-06-30] MEDS: GABAPENTIN 300 MG CAPSULE PO SCH (13:50)
[2018-06-30] MEDS: MULTIVITAMIN (PRENATAL) TABLET PO SCH (13:50)
[2018-06-30] MEDS: ATORVASTATIN 40 MG TABLET PO SCH (13:50)
[2018-06-30] MEDS: DILTIAZEM 30 MG TABLET PO SCH (13:50)
[2018-06-30] MEDS: PANTOPRAZOLE 40 MG TABLET PO SCH (13:51)
[2018-06-30] MEDS: predniSONE 20 MG TABLET PO SCH (13:51)
[2018-06-30] MEDS: levETIRAcetam 500 MG TABLET PO SCH (13:52)
[2018-06-30] MEDS: LIOTHYRONINE 25 MCG TABLET PO SCH (13:54)
[2018-06-30] MEDS ORDERED: GENTAMICIN INJ 140 MG in SODIUM CHLORIDE 0.9% 100 ML IV SCH (17:00)
== END 2018-06-30 15:49 | disposition home health service (06) | DRG 871 ==
LOC: EDUNIT# → EDBD → N.ED 12:40 → N.EDINP 16:02 → SUATTDRO 16:02 → N.5E 17:01
PROVIDERS: ADMIT Internal Medicine Infectious Disease; ATTEND Internal Medicine

== ENCOUNTER 2018-07-30 07:39 | Inpatient (IN) ==
[2018-07-30] MEDS ORDERED: ALBUTEROL 2.5 MG/3 ML NEB RESP TX SCH (08:30)
[2018-07-30] MEDS ORDERED: PIPERACILLIN/TAZOBACTAM 2,250 MG in SODIUM CHLORIDE 0.9% 100 ML IV STA (09:17)
[2018-07-30 10:06] LABS: Basophils # 0.1 10*3/uL (0.0-0.2); Basophils % 0.6 % (0.0-0.8); Eosinophils # 0.1 10*3/uL (0.0-0.87); Eosinophils % 0.6 % (0.00-10.9); Hematocrit 33.3 VOL% (35.7-47.0); Hemoglobin 10.3 GM/DL (12.0-16.0); Immature Granulocytes % 0.7 %; Immature Granulocytes Absolute 0.06 #; Lymphocytes # 1.8 10*3/uL (1.4-4.0); Lymphocytes % 21.4 % (21.3-54.2); Mean Corpuscular HGB Conc 30.9 GM/DL (32-36); Mean Corpuscular Hemoglobin 30 PG (27-34); Mean Corpuscular Volume 95.4 FL (87-102); Mean Platelet Volume 11.6 FL (9.6-12.0); Monocytes % 12.4 % (1.7-12.7); NRBC # 0.08 10*3/uL; Neutrophils # 5.3 10*3/uL (1.4-7.4); Neutrophils % 64.3 % (38.7-73.9); Platelet Count 136 T/CUMM (130-400); Red Blood Count 3.49 MC/CUMM (3.8-5.5); Red Cell Distribution Width 18.8 % (9.3-17.3); White Blood Count 8.2 T/CUMM (4-12)
[2018-07-30 10:26] LABS: Albumin 3.2 G/DL (3.4-5.0); Bilirubin,Total 0.8 MG/DL (0.2-1.0); Calcium 8.9 MG/DL (8.5-10.1); Potassium 3.7 MMOL/L (3.5-5.1); Total Protein 7.6 G/DL (6.4-8.3)
[2018-07-30] MEDS ORDERED: GLUCAGON 1 MG VIAL IM PRN (11:24)
[2018-07-30] MEDS ORDERED: PROMETHAZINE 25 MG/1 ML VIAL IM PRN (11:24)
[2018-07-30] MEDS ORDERED: DEXTROSE 50% 25 GM/50 ML VIAL IV PRN (11:24)
[2018-07-30] MEDS ORDERED: ONDANSETRON 4 MG/2 ML VIAL IV PRN (11:24)
[2018-07-30] MEDS ORDERED: ALBUTEROL 2.5 MG/3 ML NEB RESP TX PRN (11:33)
[2018-07-30] MEDS ORDERED: VANCOMYCIN INJ 500 MG in SODIUM CHLORIDE 0.9% 100 ML IV PRN (12:53)
[2018-07-30] MEDS: ALBUTEROL/IPRATROPIUM 3 ML NEB RESP TX SCH ×2 (12:55→19:41)
[2018-07-30] MEDS ORDERED: EPOETIN ALFA 10,000 UNIT/1 ML VIAL IV PRN (14:10)
[2018-07-30] MEDS ORDERED: NON-FORMULARY MEDICATION (Albuterol Sulfate [Ventolin Hfa] 2 PUFF) INH PRN (14:10)
[2018-07-30] MEDS ORDERED: ALBUTEROL 1.25 MG/3 ML NEB RESP TX PRN (14:10)
[2018-07-30] MEDS: INSULIN LISPRO 100 UNIT/ML SUBCUT SCH ×3 (14:53→22:25)
[2018-07-30] MEDS: HEPARIN 5,000 UNIT/1 ML VIAL SUBCUT SCH ×2 (14:54→23:25)
[2018-07-30] MEDS: rOPINIRole 0.25 MG TABLET PO SCH ×2 (15:29→23:25)
[2018-07-30] MEDS: CALCIUM ACETATE 667 MG CAPSULE PO SCH (17:25)
[2018-07-30] MEDS ORDERED: VANCOMYCIN INJ 1,250 MG in SODIUM CHLORIDE 0.9% 250 ML IV ONE (18:00)
[2018-07-30] MEDS: CEFEPIME 1,000 MG in SYRINGE 1 EACH IV SCH (18:42)
[2018-07-30] MEDS: clonazePAM 0.5 MG TABLET PO SCH (22:21)
[2018-07-30] MEDS: FAMOTIDINE 20 MG TABLET PO SCH (22:24)
[2018-07-30] MEDS: GABAPENTIN 300 MG CAPSULE PO SCH (22:24)
[2018-07-30] MEDS: CALCIUM CARBONATE CHEW 500 MG TABLET PO SCH (22:26)
[2018-07-30] MEDS: ACETAMINOPHEN 325 MG TABLET PO PRN (23:22)
[2018-07-30] MEDS: MONTELUKAST 10 MG TABLET PO SCH (23:22)
[2018-07-31] MEDS: ALBUTEROL/IPRATROPIUM 3 ML NEB RESP TX SCH ×4 (00:36→20:07)
[2018-07-31 05:29] LABS: Basophils % 0.7 % (0.0-0.8); Eosinophils # 0.1 10*3/uL (0.0-0.87); Eosinophils % 1.6 % (0.00-10.9); Hematocrit 27.2 VOL% (35.7-47.0); Hemoglobin 8.3 GM/DL (12.0-16.0); Immature Granulocytes % 0.3 %; Immature Granulocytes Absolute 0.02 #; Lymphocytes # 1.3 10*3/uL (1.4-4.0); Lymphocytes % 21.1 % (21.3-54.2); Mean Corpuscular HGB Conc 30.5 GM/DL (32-36); Mean Corpuscular Hemoglobin 29 PG (27-34); Mean Corpuscular Volume 96.1 FL (87-102); Mean Platelet Volume 11.8 FL (9.6-12.0); Monocytes # 0.9 10*3/uL (0.11-0.8); Monocytes % 15.2 % (1.7-12.7); NRBC # 0.09 10*3/uL; Neutrophils # 3.7 10*3/uL (1.4-7.4); Neutrophils % 61.1 % (38.7-73.9); Platelet Count 101 T/CUMM (130-400); Red Blood Count 2.83 MC/CUMM (3.8-5.5); Red Cell Distribution Width 18.7 % (9.3-17.3); White Blood Count 6.1 T/CUMM (4-12)
[2018-07-31 05:37] LABS: Albumin 2.5 G/DL (3.4-5.0); Bilirubin,Total 0.9 MG/DL (0.2-1.0); Calcium 8.1 MG/DL (8.5-10.1); Osmolality,Calculated 279.4 MOS/KG (273-304); Potassium 3.6 MMOL/L (3.5-5.1); Total Protein 6.3 G/DL (6.4-8.3)
[2018-07-31] MEDS: INSULIN LISPRO 100 UNIT/ML SUBCUT SCH ×4 (08:04→21:19)
[2018-07-31] MEDS: rOPINIRole 0.25 MG TABLET PO SCH ×3 (09:15→21:18)
[2018-07-31] MEDS: DORNASE ALFA 2.5 MG/2.5 ML VIAL RESP TX SCH ×2 (09:30→20:14)
[2018-07-31] MEDS: levETIRAcetam 500 MG TABLET PO SCH (11:40)
[2018-07-31] MEDS: CALCIUM CARBONATE CHEW 500 MG TABLET PO SCH ×2 (11:40→21:19)
[2018-07-31] MEDS: MULTIVITAMIN (BEROCCA) TABLET PO SCH (11:40)
[2018-07-31] MEDS: ATORVASTATIN 40 MG TABLET PO SCH (11:40)
[2018-07-31] MEDS: ASPIRIN EC 81 MG TABLET PO SCH (11:40)
[2018-07-31] MEDS: DILTIAZEM 30 MG TABLET PO SCH (11:40)
[2018-07-31] MEDS: ASCORBIC ACID 500 MG TABLET PO SCH (11:40)
[2018-07-31] MEDS: SERTRALINE 50 MG TABLET PO SCH (11:41)
[2018-07-31] MEDS: GABAPENTIN 300 MG CAPSULE PO SCH ×2 (11:41→21:19)
[2018-07-31] MEDS: PANTOPRAZOLE 40 MG TABLET PO SCH (11:41)
[2018-07-31] MEDS: FLUTICASONE 50 MCG NASAL SPRAY 16 GM BOTTLE BOTH NARES SCH (11:44)
[2018-07-31] MEDS: HEPARIN 5,000 UNIT/1 ML VIAL SUBCUT SCH ×2 (11:44→21:20)
[2018-07-31] MEDS: CALCIUM ACETATE 667 MG CAPSULE PO SCH ×2 (12:02→16:23)
[2018-07-31] MEDS: ACETAMINOPHEN 325 MG TABLET PO PRN ×2 (12:10→21:23)
[2018-07-31] MEDS: CEFEPIME 1,000 MG in SYRINGE 1 EACH IV SCH (16:22)
[2018-07-31] MEDS: ARFORMOTEROL 15 MCG/2 ML NEB RESP TX SCH (20:07)
[2018-07-31] MEDS: FAMOTIDINE 20 MG TABLET PO SCH (21:18)
[2018-07-31] MEDS: clonazePAM 0.5 MG TABLET PO SCH (21:19)
[2018-07-31] MEDS: MONTELUKAST 10 MG TABLET PO SCH (21:19)
[2018-08-01] MEDS: ALBUTEROL/IPRATROPIUM 3 ML NEB RESP TX SCH ×5 (00:30→23:00)
[2018-08-01] MEDS: DORNASE ALFA 2.5 MG/2.5 ML VIAL RESP TX SCH ×2 (06:45→18:30)
[2018-08-01] MEDS: ARFORMOTEROL 15 MCG/2 ML NEB RESP TX SCH ×2 (06:45→18:30)
[2018-08-01] MEDS ORDERED: methylPREDNISolone SOD SUC 125 MG/2 ML VIAL IV ONE (08:23)
[2018-08-01 09:07] LABS: Basophils % 0.4 % (0.0-0.8); Eosinophils # 0.2 10*3/uL (0.0-0.87); Eosinophils % 2.1 % (0.00-10.9); Hematocrit 28.9 VOL% (35.7-47.0); Hemoglobin 8.8 GM/DL (12.0-16.0); Immature Granulocytes % 0.5 %; Immature Granulocytes Absolute 0.04 #; Lymphocytes # 1.9 10*3/uL (1.4-4.0); Lymphocytes % 24.2 % (21.3-54.2); Mean Corpuscular HGB Conc 30.4 GM/DL (32-36); Mean Corpuscular Hemoglobin 29 PG (27-34); Mean Corpuscular Volume 95.1 FL (87-102); Mean Platelet Volume 11.7 FL (9.6-12.0); Monocytes # 0.9 10*3/uL (0.11-0.8); Monocytes % 11.3 % (1.7-12.7); NRBC # 0.03 10*3/uL; Neutrophils # 4.9 10*3/uL (1.4-7.4); Neutrophils % 61.5 % (38.7-73.9); Platelet Count 79 T/CUMM (130-400); Red Blood Count 3.04 MC/CUMM (3.8-5.5); Red Cell Distribution Width 18.5 % (9.3-17.3)
[2018-08-01 09:25] LABS: Calcium 8.6 MG/DL (8.5-10.1); Osmolality,Calculated 279.5 MOS/KG (273-304); Potassium 3.5 MMOL/L (3.5-5.1)
[2018-08-01 09:58] LABS: Anisocytosis 1+; Ovalocytes Few; Poikilocytosis 1+; Polychromasia Few; Schistocytes Few
[2018-08-01 10:03] LABS: Basophilic Stippling Few; Platelet Estimate Decreased; Tear Drop Cells Few
[2018-08-01] MEDS: INSULIN LISPRO 100 UNIT/ML SUBCUT SCH ×3 (13:17→22:53)
[2018-08-01] MEDS: rOPINIRole 0.25 MG TABLET PO SCH ×3 (13:18→22:53)
[2018-08-01] MEDS: SERTRALINE 50 MG TABLET PO SCH (14:09)
[2018-08-01] MEDS: GABAPENTIN 300 MG CAPSULE PO SCH ×2 (14:09→22:53)
[2018-08-01] MEDS: ASPIRIN EC 81 MG TABLET PO SCH (14:09)
[2018-08-01] MEDS: CALCIUM CARBONATE CHEW 500 MG TABLET PO SCH ×2 (14:09→22:53)
[2018-08-01] MEDS: DILTIAZEM 30 MG TABLET PO SCH (14:09)
[2018-08-01] MEDS: ATORVASTATIN 40 MG TABLET PO SCH (14:09)
[2018-08-01] MEDS: CALCIUM ACETATE 667 MG CAPSULE PO SCH ×2 (14:09→17:14)
[2018-08-01] MEDS: PANTOPRAZOLE 40 MG TABLET PO SCH (14:09)
[2018-08-01] MEDS: ASCORBIC ACID 500 MG TABLET PO SCH (14:09)
[2018-08-01] MEDS: levETIRAcetam 500 MG TABLET PO SCH (14:10)
[2018-08-01] MEDS: HEPARIN 5,000 UNIT/1 ML VIAL SUBCUT SCH ×2 (14:10→22:54)
[2018-08-01] MEDS: MULTIVITAMIN (BEROCCA) TABLET PO SCH (14:10)
[2018-08-01] MEDS: FLUTICASONE 50 MCG NASAL SPRAY 16 GM BOTTLE BOTH NARES SCH (14:10)
[2018-08-01] MEDS: ACETAMINOPHEN 325 MG TABLET PO PRN ×2 (14:13→22:54)
[2018-08-01] MEDS ORDERED: VANCOMYCIN INJ 500 MG in SODIUM CHLORIDE 0.9% 100 ML IV ONE (17:00)
[2018-08-01] MEDS: methylPREDNISolone SOD SUC 40 MG/1 ML VIAL IV SCH ×2 (17:14→22:53)
[2018-08-01] MEDS: CEFEPIME 1,000 MG in SYRINGE 1 EACH IV SCH (17:15)
[2018-08-01] MEDS: clonazePAM 0.5 MG TABLET PO SCH (22:52)
[2018-08-01] MEDS: FAMOTIDINE 20 MG TABLET PO SCH (22:53)
[2018-08-01] MEDS: MONTELUKAST 10 MG TABLET PO SCH (22:53)
[2018-08-02] MEDS: ALBUTEROL/IPRATROPIUM 3 ML NEB RESP TX SCH ×5 (03:10→19:48)
[2018-08-02 06:49] LABS: Basophils % 0.2 % (0.0-0.8); Hematocrit 28.5 VOL% (35.7-47.0); Hemoglobin 8.5 GM/DL (12.0-16.0); Immature Granulocytes Absolute 0.04 #; Lymphocytes # 0.7 10*3/uL (1.4-4.0); Lymphocytes % 16.2 % (21.3-54.2); Mean Corpuscular HGB Conc 29.8 GM/DL (32-36); Mean Corpuscular Hemoglobin 29 PG (27-34); Mean Corpuscular Volume 95.6 FL (87-102); Mean Platelet Volume 12.9 FL (9.6-12.0); Monocytes # 0.1 10*3/uL (0.11-0.8); Monocytes % 3.2 % (1.7-12.7); NRBC # 0.03 10*3/uL; Neutrophils # 3.2 10*3/uL (1.4-7.4); Neutrophils % 79.4 % (38.7-73.9); Platelet Count 67 T/CUMM (130-400); Red Blood Count 2.98 MC/CUMM (3.8-5.5); Red Cell Distribution Width 18.4 % (9.3-17.3); White Blood Count 4.1 T/CUMM (4-12)
[2018-08-02 06:54] LABS: Calcium 8.7 MG/DL (8.5-10.1); Osmolality,Calculated 279.7 MOS/KG (273-304); Potassium 4.1 MMOL/L (3.5-5.1)
[2018-08-02] MEDS: methylPREDNISolone SOD SUC 40 MG/1 ML VIAL IV SCH ×3 (06:58→22:23)
[2018-08-02 08:04] LABS: Acanthocytes Few; Anisocytosis 2+; Band Neutrophils 3 % (0-10); Hypochromasia 3+; Lymphocytes 15 % (20-55); Macrocytosis 1+; Metamyelocytes 1 %; Microcytosis 1+; Nucleated Red Blood Cells 4 (0-5); Ovalocytes 1+; Platelet Estimate Decreased; Segmented Neutrophils 78 % (50-85); Target Cells 1+; Total Cells Counted 100
[2018-08-02] MEDS: ARFORMOTEROL 15 MCG/2 ML NEB RESP TX SCH ×2 (08:15→19:48)
[2018-08-02] MEDS: DORNASE ALFA 2.5 MG/2.5 ML VIAL RESP TX SCH ×2 (08:20→19:48)
[2018-08-02] MEDS: INSULIN LISPRO 100 UNIT/ML SUBCUT SCH ×4 (09:49→22:22)
[2018-08-02] MEDS: ASPIRIN EC 81 MG TABLET PO SCH (09:50)
[2018-08-02] MEDS: HEPARIN 5,000 UNIT/1 ML VIAL SUBCUT SCH ×2 (09:50→22:23)
[2018-08-02] MEDS: rOPINIRole 0.25 MG TABLET PO SCH ×3 (09:50→22:21)
[2018-08-02] MEDS: MULTIVITAMIN (BEROCCA) TABLET PO SCH (09:50)
[2018-08-02] MEDS: PANTOPRAZOLE 40 MG TABLET PO SCH (09:50)
[2018-08-02] MEDS: CALCIUM CARBONATE CHEW 500 MG TABLET PO SCH ×2 (09:50→22:22)
[2018-08-02] MEDS: ASCORBIC ACID 500 MG TABLET PO SCH (09:51)
[2018-08-02] MEDS: ATORVASTATIN 40 MG TABLET PO SCH (09:51)
[2018-08-02] MEDS: levETIRAcetam 500 MG TABLET PO SCH (09:51)
[2018-08-02] MEDS: FLUTICASONE 50 MCG NASAL SPRAY 16 GM BOTTLE BOTH NARES SCH (09:51)
[2018-08-02] MEDS: GABAPENTIN 300 MG CAPSULE PO SCH ×2 (09:51→22:22)
[2018-08-02] MEDS: SERTRALINE 50 MG TABLET PO SCH (09:51)
[2018-08-02] MEDS: DILTIAZEM 30 MG TABLET PO SCH (09:51)
[2018-08-02] MEDS: CALCIUM ACETATE 667 MG CAPSULE PO SCH ×2 (14:22→18:00)
[2018-08-02] MEDS: CEFEPIME 1,000 MG in SYRINGE 1 EACH IV SCH (18:34)
[2018-08-02] MEDS: FAMOTIDINE 20 MG TABLET PO SCH (22:21)
[2018-08-02] MEDS: MONTELUKAST 10 MG TABLET PO SCH (22:21)
[2018-08-02] MEDS: clonazePAM 0.5 MG TABLET PO SCH (22:22)
[2018-08-03] MEDS: ALBUTEROL/IPRATROPIUM 3 ML NEB RESP TX SCH ×5 (00:07→12:05)
[2018-08-03 05:06] LABS: Calcium 8.7 MG/DL (8.5-10.1); Osmolality,Calculated 283.7 MOS/KG (273-304)
[2018-08-03 05:30] LABS: Basophils % 0.1 % (0.0-0.8); Hematocrit 21.5 VOL% (35.7-47.0); Hemoglobin 6.6 GM/DL (12.0-16.0); Immature Granulocytes Absolute 0.12 #; Lymphocytes # 1.5 10*3/uL (1.4-4.0); Lymphocytes % 12.2 % (21.3-54.2); Mean Corpuscular HGB Conc 30.7 GM/DL (32-36); Mean Corpuscular Hemoglobin 29 PG (27-34); Mean Corpuscular Volume 93.9 FL (87-102); Mean Platelet Volume 13.3 FL (9.6-12.0); Monocytes # 0.4 10*3/uL (0.11-0.8); NRBC # 0.05 10*3/uL; Neutrophils # 10.2 10*3/uL (1.4-7.4); Neutrophils % 83.7 % (38.7-73.9); Red Blood Count 2.29 MC/CUMM (3.8-5.5); Red Cell Distribution Width 18.5 % (9.3-17.3); White Blood Count 12.2 T/CUMM (4-12)
[2018-08-03 05:31] LABS: Platelet Count 88 T/CUMM (130-400)
[2018-08-03 05:51] LABS: Hypochromasia 1+; Ovalocytes Slight; Platelet Estimate Decreased
[2018-08-03 05:52] LABS: Microcytosis Slight
[2018-08-03] MEDS: methylPREDNISolone SOD SUC 40 MG/1 ML VIAL IV SCH (06:47)
[2018-08-03] MEDS: ARFORMOTEROL 15 MCG/2 ML NEB RESP TX SCH (07:21)
[2018-08-03] MEDS: DORNASE ALFA 2.5 MG/2.5 ML VIAL RESP TX SCH (07:21)
[2018-08-03] MEDS: INSULIN LISPRO 100 UNIT/ML SUBCUT SCH ×2 (08:35→11:52)
[2018-08-03] MEDS: MULTIVITAMIN (BEROCCA) TABLET PO SCH (08:36)
[2018-08-03] MEDS: PANTOPRAZOLE 40 MG TABLET PO SCH (08:36)
[2018-08-03] MEDS: CALCIUM CARBONATE CHEW 500 MG TABLET PO SCH (08:36)
[2018-08-03] MEDS: DILTIAZEM 30 MG TABLET PO SCH (08:36)
[2018-08-03] MEDS: levETIRAcetam 500 MG TABLET PO SCH (08:37)
[2018-08-03] MEDS: ASCORBIC ACID 500 MG TABLET PO SCH (08:37)
[2018-08-03] MEDS: GABAPENTIN 300 MG CAPSULE PO SCH (08:37)
[2018-08-03] MEDS: ATORVASTATIN 40 MG TABLET PO SCH (08:37)
[2018-08-03] MEDS: SERTRALINE 50 MG TABLET PO SCH (08:37)
[2018-08-03] MEDS: ASPIRIN EC 81 MG TABLET PO SCH (08:37)
[2018-08-03 09:48] LABS: Basophils % 0.1 % (0.0-0.8); Hematocrit 29.9 VOL% (35.7-47.0); Hemoglobin 9.2 GM/DL (12.0-16.0); Immature Granulocytes % 1.1 %; Immature Granulocytes Absolute 0.13 #; Lymphocytes # 1.2 10*3/uL (1.4-4.0); Lymphocytes % 10.1 % (21.3-54.2); Mean Corpuscular HGB Conc 30.8 GM/DL (32-36); Mean Corpuscular Hemoglobin 29 PG (27-34); Mean Corpuscular Volume 94.9 FL (87-102); Mean Platelet Volume 12.9 FL (9.6-12.0); Monocytes # 0.3 10*3/uL (0.11-0.8); Monocytes % 2.7 % (1.7-12.7); NRBC # 0.07 10*3/uL; Neutrophils # 10.4 10*3/uL (1.4-7.4); Red Blood Count 3.15 MC/CUMM (3.8-5.5); Red Cell Distribution Width 18.9 % (9.3-17.3); White Blood Count 12.1 T/CUMM (4-12)
[2018-08-03 09:50] LABS: Platelet Count 98 T/CUMM (130-400)
[2018-08-03 10:05] LABS: Osmolality,Calculated 277.4 MOS/KG (273-304); Potassium 4.7 MMOL/L (3.5-5.1)
[2018-08-03 10:07] LABS: Band Neutrophils 3 % (0-10); Lymphocytes 9 % (20-55); Segmented Neutrophils 88 % (50-85); Total Cells Counted 100
[2018-08-03 10:08] LABS: Hypochromasia 1+; Platelet Estimate Decreased
[2018-08-03] MEDS: HEPARIN 5,000 UNIT/1 ML VIAL SUBCUT SCH (11:19)
[2018-08-03] MEDS: rOPINIRole 0.25 MG TABLET PO SCH (11:19)
[2018-08-03] MEDS: FLUTICASONE 50 MCG NASAL SPRAY 16 GM BOTTLE BOTH NARES SCH (11:19)
[2018-08-03 11:34] VITALS: BP 131/83
[2018-08-03] MEDS: CALCIUM ACETATE 667 MG CAPSULE PO SCH (11:52)
== END 2018-08-03 15:42 | disposition home health service (06) | DRG 291 ==
LOC: EDBD → EDUNIT# → N.ED 07:39 → N.EDINP 11:24 → SUATTDRO 11:24 → N.5E 12:42
PROVIDERS: ADMIT Internal Medicine Geriatric Medicine; ATTEND Internal Medicine

== ENCOUNTER 2018-10-06 14:01 | Inpatient (IN) ==
[2018-10-06] MEDS ORDERED: DEXTROSE 50% 25 GM/50 ML VIAL IV PRN (16:10)
[2018-10-06] MEDS ORDERED: ONDANSETRON 4 MG/2 ML VIAL IV PRN (16:10)
[2018-10-06] MEDS ORDERED: GLUCAGON 1 MG VIAL IM PRN (16:10)
[2018-10-06] MEDS ORDERED: BISACODYL 5 MG TABLET PO PRN (16:10)
[2018-10-06] MEDS: INSULIN LISPRO 100 UNIT/ML SUBCUT SCH ×2 (16:40→20:52)
[2018-10-06] MEDS ORDERED: BENZONATATE 100 MG CAPSULE PO PRN (16:59)
[2018-10-06] MEDS ORDERED: ALBUTEROL 2.5 MG/3 ML NEB RESP TX PRN (16:59)
[2018-10-06] MEDS ORDERED: NON-FORMULARY MEDICATION (Albuterol Sulfate [Ventolin Hfa] 2 PUFF) INH PRN (16:59)
[2018-10-06] MEDS ORDERED: ALBUTEROL 1.25 MG/3 ML NEB RESP TX PRN (16:59)
[2018-10-06] MEDS ORDERED: POLYVINYL ALCOHOL 1.4% OPH SOLN 15 ML BOTTLE BOTH EYES PRN (16:59)
[2018-10-06] MEDS ORDERED: LEVOFLOXACIN INJ 750 MG in PREMIX 1 EACH IV SCH (17:00)
[2018-10-06 17:21] LABS: Basophils # 0.1 10*3/uL (0.0-0.2); Eosinophils # 0.4 10*3/uL (0.0-0.87); Eosinophils % 5.3 % (0.00-10.9); Hematocrit 34.1 VOL% (35.7-47.0); Hemoglobin 10.8 GM/DL (12.0-16.0); Immature Granulocytes % 0.3 %; Immature Granulocytes Absolute 0.02 #; Lymphocytes # 1.5 10*3/uL (1.4-4.0); Lymphocytes % 21.9 % (21.3-54.2); Mean Corpuscular HGB Conc 31.7 GM/DL (32-36); Mean Corpuscular Hemoglobin 29 PG (27-34); Mean Platelet Volume 11.3 FL (9.6-12.0); Monocytes # 0.9 10*3/uL (0.11-0.8); Monocytes % 13.6 % (1.7-12.7); Neutrophils % 57.9 % (38.7-73.9); Platelet Count 108 T/CUMM (130-400); Red Blood Count 3.79 MC/CUMM (3.8-5.5); Red Cell Distribution Width 18.9 % (9.3-17.3); White Blood Count 6.8 T/CUMM (4-12)
[2018-10-06] MEDS: methylPREDNISolone SOD SUC 40 MG/1 ML VIAL IV SCH (17:23)
[2018-10-06 17:46] LABS: Albumin 3.5 G/DL (3.4-5.0); Bilirubin,Total 1.1 MG/DL (0.2-1.0); Calcium 9.3 MG/DL (8.5-10.1); Osmolality,Calculated 280.8 MOS/KG (273-304); Potassium 4.4 MMOL/L (3.5-5.1); Total Protein 7.7 G/DL (6.4-8.3)
[2018-10-06] MEDS: CALCIUM ACETATE 667 MG CAPSULE PO SCH (17:50)
[2018-10-06] MEDS: ARFORMOTEROL 15 MCG/2 ML NEB RESP TX SCH (19:37)
[2018-10-06] MEDS: ALBUTEROL/IPRATROPIUM 3 ML NEB RESP TX SCH ×2 (19:37→23:44)
[2018-10-06] MEDS: ATORVASTATIN 40 MG TABLET PO SCH (21:02)
[2018-10-06] MEDS: MONTELUKAST 10 MG TABLET PO SCH (21:02)
[2018-10-06] MEDS: TOPIRAMATE 25 MG TABLET PO SCH (21:02)
[2018-10-06] MEDS: clonazePAM 0.5 MG TABLET PO SCH (21:02)
[2018-10-06] MEDS: rOPINIRole 0.25 MG TABLET PO SCH (21:02)
[2018-10-06] MEDS: PANTOPRAZOLE 40 MG TABLET PO SCH (21:02)
[2018-10-06] MEDS: GABAPENTIN 300 MG CAPSULE PO SCH (21:02)
[2018-10-06] MEDS: CALCIUM CARBONATE CHEW 500 MG TABLET PO SCH (21:02)
[2018-10-06] MEDS: ENOXAPARIN 30 MG/0.3 ML SYRINGE SUBCUT SCH (21:03)
[2018-10-06] MEDS: ACETAMINOPHEN 325 MG TABLET PO PRN (21:14)
[2018-10-07] MEDS: methylPREDNISolone SOD SUC 40 MG/1 ML VIAL IV SCH ×3 (01:53→17:18)
[2018-10-07] MEDS: CALCIUM CARBONATE CHEW 500 MG TABLET PO SCH (03:42)
[2018-10-07] MEDS: ALBUTEROL/IPRATROPIUM 3 ML NEB RESP TX SCH ×6 (04:40→23:45)
[2018-10-07] MEDS: ARFORMOTEROL 15 MCG/2 ML NEB RESP TX SCH ×2 (07:04→19:30)
[2018-10-07] MEDS: INSULIN LISPRO 100 UNIT/ML SUBCUT SCH ×4 (08:39→21:35)
[2018-10-07] MEDS: CALCIUM ACETATE 667 MG CAPSULE PO SCH ×3 (09:43→17:47)
[2018-10-07] MEDS: ASCORBIC ACID 500 MG TABLET PO SCH (09:50)
[2018-10-07] MEDS: DILTIAZEM 30 MG TABLET PO SCH (09:50)
[2018-10-07] MEDS: GABAPENTIN 300 MG CAPSULE PO SCH ×2 (09:50→21:36)
[2018-10-07] MEDS: AZITHROMYCIN 250 MG TABLET PO SCH (09:50)
[2018-10-07] MEDS: levETIRAcetam 500 MG TABLET PO SCH (09:50)
[2018-10-07] MEDS: SERTRALINE 50 MG TABLET PO SCH (09:50)
[2018-10-07] MEDS: rOPINIRole 0.25 MG TABLET PO SCH ×3 (09:50→21:36)
[2018-10-07] MEDS: FLUTICASONE 50 MCG NASAL SPRAY 16 GM BOTTLE BOTH NARES SCH (09:51)
[2018-10-07] MEDS: PANTOPRAZOLE 40 MG TABLET PO SCH ×2 (09:51→21:36)
[2018-10-07] MEDS ORDERED: GABAPENTIN 300 MG CAPSULE PO SCH (11:30)
[2018-10-07] MEDS ORDERED: EPOETIN ALFA 10,000 UNIT/1 ML VIAL IV PRN (15:36)
[2018-10-07] MEDS: clonazePAM 0.5 MG TABLET PO SCH (21:35)
[2018-10-07] MEDS: ATORVASTATIN 40 MG TABLET PO SCH (21:36)
[2018-10-07] MEDS: MONTELUKAST 10 MG TABLET PO SCH (21:36)
[2018-10-07] MEDS: ENOXAPARIN 30 MG/0.3 ML SYRINGE SUBCUT SCH (21:36)
[2018-10-07] MEDS: TOPIRAMATE 25 MG TABLET PO SCH (21:36)
[2018-10-08] MEDS: methylPREDNISolone SOD SUC 40 MG/1 ML VIAL IV SCH ×3 (01:47→18:11)
[2018-10-08] MEDS: ALBUTEROL/IPRATROPIUM 3 ML NEB RESP TX SCH ×6 (03:26→23:10)
[2018-10-08] MEDS: ARFORMOTEROL 15 MCG/2 ML NEB RESP TX SCH ×2 (07:47→19:45)
[2018-10-08] MEDS: INSULIN LISPRO 100 UNIT/ML SUBCUT SCH ×4 (10:15→21:25)
[2018-10-08] MEDS: rOPINIRole 0.25 MG TABLET PO SCH ×3 (10:15→21:24)
[2018-10-08] MEDS: CALCIUM ACETATE 667 MG CAPSULE PO SCH ×3 (10:15→18:11)
[2018-10-08] MEDS: PANTOPRAZOLE 40 MG TABLET PO SCH ×2 (14:00→21:24)
[2018-10-08] MEDS: AZITHROMYCIN 250 MG TABLET PO SCH (14:56)
[2018-10-08] MEDS: FLUTICASONE 50 MCG NASAL SPRAY 16 GM BOTTLE BOTH NARES SCH (14:56)
[2018-10-08] MEDS: ASCORBIC ACID 500 MG TABLET PO SCH (14:56)
[2018-10-08] MEDS: SERTRALINE 50 MG TABLET PO SCH (14:56)
[2018-10-08] MEDS: DILTIAZEM 30 MG TABLET PO SCH (14:56)
[2018-10-08] MEDS: levETIRAcetam 500 MG TABLET PO SCH (14:56)
[2018-10-08] MEDS: ACETAMINOPHEN 325 MG TABLET PO PRN (14:59)
[2018-10-08] MEDS ORDERED: LEVOFLOXACIN INJ 500 MG in PREMIX 1 EACH IV SCH (18:00)
[2018-10-08] MEDS: TOPIRAMATE 25 MG TABLET PO SCH (21:24)
[2018-10-08] MEDS: ENOXAPARIN 30 MG/0.3 ML SYRINGE SUBCUT SCH (21:24)
[2018-10-08] MEDS: clonazePAM 0.5 MG TABLET PO SCH (21:24)
[2018-10-08] MEDS: MONTELUKAST 10 MG TABLET PO SCH (21:24)
[2018-10-08] MEDS: ATORVASTATIN 40 MG TABLET PO SCH (21:24)
[2018-10-08] MEDS: GABAPENTIN 300 MG CAPSULE PO SCH (21:24)
[2018-10-08] MEDS: SUMAtriptan 25 MG TABLET PO PRN (22:05)
[2018-10-09] MEDS: methylPREDNISolone SOD SUC 40 MG/1 ML VIAL IV SCH ×3 (01:31→16:09)
[2018-10-09] MEDS: ALBUTEROL/IPRATROPIUM 3 ML NEB RESP TX SCH ×5 (03:05→20:30)
[2018-10-09] MEDS: ARFORMOTEROL 15 MCG/2 ML NEB RESP TX SCH ×2 (07:03→20:30)
[2018-10-09] MEDS: INSULIN LISPRO 100 UNIT/ML SUBCUT SCH ×4 (08:11→20:37)
[2018-10-09] MEDS: PANTOPRAZOLE 40 MG TABLET PO SCH ×2 (08:12→20:28)
[2018-10-09] MEDS: levETIRAcetam 500 MG TABLET PO SCH (08:12)
[2018-10-09] MEDS: CALCIUM ACETATE 667 MG CAPSULE PO SCH ×3 (08:12→16:08)
[2018-10-09] MEDS: SERTRALINE 50 MG TABLET PO SCH (08:12)
[2018-10-09] MEDS: AZITHROMYCIN 250 MG TABLET PO SCH (08:12)
[2018-10-09] MEDS: DILTIAZEM 30 MG TABLET PO SCH (08:12)
[2018-10-09] MEDS: ASCORBIC ACID 500 MG TABLET PO SCH (08:12)
[2018-10-09] MEDS: FLUTICASONE 50 MCG NASAL SPRAY 16 GM BOTTLE BOTH NARES SCH (08:12)
[2018-10-09] MEDS: rOPINIRole 0.25 MG TABLET PO SCH ×3 (08:12→20:28)
[2018-10-09 08:30] LABS: Hematocrit 32.5 VOL% (35.7-47.0); Hemoglobin 10.4 GM/DL (12.0-16.0); Immature Granulocytes % 0.7 %; Immature Granulocytes Absolute 0.04 #; Lymphocytes # 0.4 10*3/uL (1.4-4.0); Lymphocytes % 6.3 % (21.3-54.2); Mean Corpuscular Hemoglobin 29 PG (27-34); Mean Corpuscular Volume 89.5 FL (87-102); Mean Platelet Volume 11.3 FL (9.6-12.0); Monocytes # 0.2 10*3/uL (0.11-0.8); Monocytes % 3.3 % (1.7-12.7); Neutrophils # 5.2 10*3/uL (1.4-7.4); Neutrophils % 89.7 % (38.7-73.9); Platelet Count 111 T/CUMM (130-400); Red Blood Count 3.63 MC/CUMM (3.8-5.5); Red Cell Distribution Width 18.1 % (9.3-17.3); White Blood Count 5.7 T/CUMM (4-12)
[2018-10-09 09:01] LABS: Albumin 3.7 G/DL (3.4-5.0); Bilirubin,Total 0.9 MG/DL (0.2-1.0); Calcium 8.2 MG/DL (8.5-10.1); Osmolality,Calculated 277.5 MOS/KG (273-304); Potassium 3.5 MMOL/L (3.5-5.1); Total Protein 7.3 G/DL (6.4-8.3)
[2018-10-09] MEDS: ACETAMINOPHEN 325 MG TABLET PO PRN ×2 (12:34→16:08)
[2018-10-09] MEDS ORDERED: DICLOXACILLIN 250 MG CAPSULE PO SCH (15:00)
[2018-10-09] MEDS: cephALEXin 250 MG CAPSULE PO SCH ×3 (16:02→20:34)
[2018-10-09] MEDS ORDERED: NITROGLYCERIN SL 0.4 MG TABLET SL ONE (20:02)
[2018-10-09] MEDS ORDERED: NITROGLYCERIN SL 0.4 MG TABLET SL PRN (20:02)
[2018-10-09] MEDS ORDERED: ASPIRIN 325 MG TABLET ONE (20:02)
[2018-10-09] MEDS ORDERED: ASPIRIN CHEW 81 MG TABLET PO ONE (20:02)
[2018-10-09 20:16] LABS: Hematocrit 31.4 VOL% (35.7-47.0); Hemoglobin 10.1 GM/DL (12.0-16.0); Immature Granulocytes % 0.8 %; Immature Granulocytes Absolute 0.04 #; Lymphocytes # 0.3 10*3/uL (1.4-4.0); Mean Corpuscular HGB Conc 32.2 GM/DL (32-36); Mean Corpuscular Hemoglobin 29 PG (27-34); Mean Corpuscular Volume 89.2 FL (87-102); Mean Platelet Volume 11.1 FL (9.6-12.0); Monocytes # 0.2 10*3/uL (0.11-0.8); Monocytes % 4.2 % (1.7-12.7); Neutrophils # 4.6 10*3/uL (1.4-7.4); Platelet Count 107 T/CUMM (130-400); Red Blood Count 3.52 MC/CUMM (3.8-5.5); Red Cell Distribution Width 18.1 % (9.3-17.3); White Blood Count 5.2 T/CUMM (4-12)
[2018-10-09] MEDS: ENOXAPARIN 30 MG/0.3 ML SYRINGE SUBCUT SCH (20:26)
[2018-10-09] MEDS: MONTELUKAST 10 MG TABLET PO SCH (20:27)
[2018-10-09] MEDS: TOPIRAMATE 25 MG TABLET PO SCH (20:28)
[2018-10-09] MEDS: ATORVASTATIN 40 MG TABLET PO SCH (20:28)
[2018-10-09] MEDS: GABAPENTIN 300 MG CAPSULE PO SCH (20:28)
[2018-10-09] MEDS: clonazePAM 0.5 MG TABLET PO SCH (20:28)
[2018-10-10] MEDS: ALBUTEROL/IPRATROPIUM 3 ML NEB RESP TX SCH ×4 (00:09→11:44)
[2018-10-10] MEDS: methylPREDNISolone SOD SUC 40 MG/1 ML VIAL IV SCH ×2 (00:49→08:50)
[2018-10-10 05:56] LABS: Hematocrit 31.2 VOL% (35.7-47.0); Hemoglobin 10.1 GM/DL (12.0-16.0); Immature Granulocytes % 0.8 %; Immature Granulocytes Absolute 0.04 #; Lymphocytes # 0.3 10*3/uL (1.4-4.0); Lymphocytes % 6.5 % (21.3-54.2); Mean Corpuscular HGB Conc 32.4 GM/DL (32-36); Mean Corpuscular Hemoglobin 29 PG (27-34); Mean Corpuscular Volume 88.4 FL (87-102); Mean Platelet Volume 10.6 FL (9.6-12.0); Monocytes # 0.2 10*3/uL (0.11-0.8); Monocytes % 4.5 % (1.7-12.7); Neutrophils # 4.3 10*3/uL (1.4-7.4); Neutrophils % 88.2 % (38.7-73.9); Platelet Count 107 T/CUMM (130-400); Red Blood Count 3.53 MC/CUMM (3.8-5.5); Red Cell Distribution Width 17.8 % (9.3-17.3); White Blood Count 4.9 T/CUMM (4-12)
[2018-10-10 06:22] LABS: Albumin 3.6 G/DL (3.4-5.0); Bilirubin,Total 1.3 MG/DL (0.2-1.0); Osmolality,Calculated 284.8 MOS/KG (273-304); Potassium 3.6 MMOL/L (3.5-5.1); Total Protein 7.1 G/DL (6.4-8.3)
[2018-10-10] MEDS: ARFORMOTEROL 15 MCG/2 ML NEB RESP TX SCH (07:46)
[2018-10-10] MEDS: rOPINIRole 0.25 MG TABLET PO SCH (08:48)
[2018-10-10] MEDS: DILTIAZEM 30 MG TABLET PO SCH (08:48)
[2018-10-10] MEDS: ACETAMINOPHEN 325 MG TABLET PO PRN (08:49)
[2018-10-10] MEDS: ASCORBIC ACID 500 MG TABLET PO SCH (08:49)
[2018-10-10] MEDS: CALCIUM ACETATE 667 MG CAPSULE PO SCH ×2 (08:49→12:56)
[2018-10-10] MEDS: PANTOPRAZOLE 40 MG TABLET PO SCH (08:50)
[2018-10-10] MEDS: levETIRAcetam 500 MG TABLET PO SCH (08:50)
[2018-10-10] MEDS: AZITHROMYCIN 250 MG TABLET PO SCH (08:50)
[2018-10-10] MEDS: INSULIN LISPRO 100 UNIT/ML SUBCUT SCH ×2 (08:50→12:56)
[2018-10-10] MEDS: SERTRALINE 50 MG TABLET PO SCH (08:52)
[2018-10-10] MEDS: cephALEXin 250 MG CAPSULE PO SCH (08:52)
[2018-10-10] MEDS: FLUTICASONE 50 MCG NASAL SPRAY 16 GM BOTTLE BOTH NARES SCH (08:52)
[2018-10-10] MEDS: SUMAtriptan 25 MG TABLET PO PRN (11:01)
[2018-10-10 15:45] VITALS: BP 119/72
[2018-10-11] MEDS ORDERED: MULTIVITAMIN (BEROCCA) TABLET PO SCH (09:00)
== END 2018-10-10 16:25 | disposition home health service (06) | DRG 190 ==
LOC: N.5E → SUATTDRO 15:10
PROVIDERS: ADMIT Internal Medicine; ATTEND Internal Medicine

== ENCOUNTER 2018-10-17 23:45 | Inpatient (IN) ==
[2018-10-18] MEDS ORDERED: ALBUTEROL/IPRATROPIUM 3 ML NEB RESP TX STA (00:42)
[2018-10-18] MEDS ORDERED: methylPREDNISolone SOD SUC 125 MG/2 ML VIAL IV STA (00:49)
[2018-10-18] MEDS ORDERED: ONDANSETRON 4 MG/2 ML VIAL IV STA (00:49)
[2018-10-18] MEDS ORDERED: cefTRIAXone 1,000 MG in SODIUM CHLORIDE 0.9% 100 ML IV STA (01:30)
[2018-10-18 01:37] LABS: ABG Base Excess -6.4 MMOL/L (-2.5-2.5); ABG HCO3 19.1 MMOL/L (20-26); ABG Oxygen Saturation 90.8 % (95-100); ABG PCO2 41.2 MM HG (35-48); ABG PH 7.292 (7.35-7.45); ABG PO2 70.4 MM HG (80-95); ABG TCO2 17.7 MMOL/L (23-27); Allen Test Positive
[2018-10-18 02:08] LABS: Hematocrit 37.9 VOL% (35.7-47.0); Hemoglobin 12.3 GM/DL (12.0-16.0); Immature Granulocytes % 0.7 %; Immature Granulocytes Absolute 0.08 #; Lymphocytes # 0.7 10*3/uL (1.4-4.0); Lymphocytes % 6.4 % (21.3-54.2); Mean Corpuscular HGB Conc 32.5 GM/DL (32-36); Mean Corpuscular Hemoglobin 29 PG (27-34); Mean Corpuscular Volume 89.4 FL (87-102); Mean Platelet Volume 11.5 FL (9.6-12.0); Monocytes # 0.8 10*3/uL (0.11-0.8); Monocytes % 7.2 % (1.7-12.7); NRBC # 0.02 10*3/uL; Neutrophils # 9.3 10*3/uL (1.4-7.4); Neutrophils % 85.7 % (38.7-73.9); Platelet Count 111 T/CUMM (130-400); Red Blood Count 4.24 MC/CUMM (3.8-5.5); Red Cell Distribution Width 18.6 % (9.3-17.3); White Blood Count 10.9 T/CUMM (4-12)
[2018-10-18 02:15] LABS: INR 1.3; PT Patient Result 14.6 SECS
[2018-10-18 02:30] LABS: Albumin 3.8 G/DL (3.4-5.0); Bilirubin,Total 1.1 MG/DL (0.2-1.0); Calcium 8.3 MG/DL (8.5-10.1); Osmolality,Calculated 297.1 MOS/KG (273-304)
[2018-10-18] MEDS ORDERED: ZALEPLON 5 MG CAPSULE PO PRN (03:22)
[2018-10-18] MEDS ORDERED: BISACODYL 5 MG TABLET PO PRN (03:22)
[2018-10-18] MEDS ORDERED: ONDANSETRON 4 MG/2 ML VIAL IV PRN (03:22)
[2018-10-18] MEDS ORDERED: guaiFENesin/DM ER 600-30 MG TABLET PO PRN (03:22)
[2018-10-18] MEDS ORDERED: NICOTINE 21 MG/24 HR PATCH TRANSDERM PRN (03:22)
[2018-10-18 06:03] LABS: Albumin 3.7 G/DL (3.4-5.0); Bilirubin,Total 1.1 MG/DL (0.2-1.0); Calcium 8.6 MG/DL (8.5-10.1); Potassium 4.5 MMOL/L (3.5-5.1)
[2018-10-18] MEDS: ALBUTEROL/IPRATROPIUM 3 ML NEB RESP TX SCH ×3 (07:15→19:04)
[2018-10-18] MEDS: PIPERACILLIN/TAZOBACTAM 3,375 MG in SODIUM CHLORIDE 0.9% 100 ML IV SCH ×2 (11:15→23:21)
[2018-10-18] MEDS: PANTOPRAZOLE 40 MG TABLET PO SCH (11:15)
[2018-10-18] MEDS: methylPREDNISolone SOD SUC 40 MG/1 ML VIAL IV SCH (13:52)
[2018-10-18 16:22] LABS: Hepatitis A Ab IgM Quant 0.16 Index; Hepatitis A Ab IgM Result Negative (Negative); Hepatitis B Core IgM Quant 0.11 Index; Hepatitis B Core IgM Result Negative (Negative); Hepatitis B Surface Ag Quant < 0.10 Index; Hepatitis B Surface Ag Result Negative (Negative); Hepatitis C Virus Ab Quant 0.03 Index; Hepatitis C Virus Ab Result Negative (Negative)
[2018-10-18] MEDS: ACETAMINOPHEN 325 MG TABLET PO PRN (19:47)
[2018-10-19] MEDS: ALBUTEROL/IPRATROPIUM 3 ML NEB RESP TX SCH ×4 (00:06→19:51)
[2018-10-19] MEDS ORDERED: cefTRIAXone 1,000 MG in SYRINGE 1 EACH IV SCH (02:30)
[2018-10-19] MEDS: ACETAMINOPHEN 325 MG TABLET PO PRN ×2 (04:34→20:34)
[2018-10-19] MEDS: methylPREDNISolone SOD SUC 40 MG/1 ML VIAL IV SCH ×2 (04:36→13:22)
[2018-10-19 05:13] LABS: Basophils % 0.1 % (0.0-0.8); Hematocrit 35.4 VOL% (35.7-47.0); Hemoglobin 11.5 GM/DL (12.0-16.0); Immature Granulocytes % 0.9 %; Lymphocytes # 0.6 10*3/uL (1.4-4.0); Lymphocytes % 5.5 % (21.3-54.2); Mean Corpuscular HGB Conc 32.5 GM/DL (32-36); Mean Corpuscular Hemoglobin 29 PG (27-34); Mean Corpuscular Volume 88.7 FL (87-102); Mean Platelet Volume 11.4 FL (9.6-12.0); Monocytes # 1.4 10*3/uL (0.11-0.8); Monocytes % 12.8 % (1.7-12.7); NRBC # 0.03 10*3/uL; Neutrophils # 8.9 10*3/uL (1.4-7.4); Neutrophils % 80.7 % (38.7-73.9); Platelet Count 98 T/CUMM (130-400); Red Blood Count 3.99 MC/CUMM (3.8-5.5); Red Cell Distribution Width 18.3 % (9.3-17.3); White Blood Count 11.1 T/CUMM (4-12)
[2018-10-19 05:28] LABS: Calcium 8.2 MG/DL (8.5-10.1); Osmolality,Calculated 283.4 MOS/KG (273-304); Potassium 4.6 MMOL/L (3.5-5.1)
[2018-10-19 05:36] LABS: Hypochromasia 1+; Lymphocytes 4 % (20-55); Segmented Neutrophils 88 % (50-85); Total Cells Counted 100
[2018-10-19 05:37] LABS: Microcytosis 1+; Polychromasia Slight; Target Cells Slight
[2018-10-19] MEDS: PANTOPRAZOLE 40 MG TABLET PO SCH ×2 (09:27→20:29)
[2018-10-19] MEDS: PIPERACILLIN/TAZOBACTAM 3,375 MG in SODIUM CHLORIDE 0.9% 100 ML IV SCH ×2 (12:29→23:19)
[2018-10-19] MEDS ORDERED: BENZONATATE 100 MG CAPSULE PO PRN (13:45)
[2018-10-19] MEDS ORDERED: POLYVINYL ALCOHOL 1.4% OPH SOLN 15 ML BOTTLE BOTH EYES PRN (13:45)
[2018-10-19] MEDS ORDERED: SUMAtriptan 25 MG TABLET PO PRN (13:45)
[2018-10-19] MEDS ORDERED: ALBUTEROL 2.5 MG/3 ML NEB RESP TX PRN (15:00)
[2018-10-19] MEDS ORDERED: rOPINIRole 0.25 MG TABLET PO SCH (15:00)
[2018-10-19] MEDS ORDERED: DEXTROSE 50% 25 GM/50 ML SYRINGE IV PRN (16:40)
[2018-10-19] MEDS ORDERED: GLUCAGON 1 MG VIAL IM PRN (16:40)
[2018-10-19] MEDS: CALCIUM ACETATE 667 MG CAPSULE PO SCH (17:37)
[2018-10-19] MEDS: HEPARIN 5,000 UNIT/1 ML VIAL SUBCUT SCH (17:37)
[2018-10-19] MEDS ORDERED: ARFORMOTEROL 15 MCG/2 ML NEB RESP TX SCH (19:00)
[2018-10-19] MEDS: SIMETHICONE CHEW 80 MG TABLET PO PRN (19:29)
[2018-10-19] MEDS: GABAPENTIN 300 MG CAPSULE PO SCH (20:29)
[2018-10-19] MEDS: TOPIRAMATE 25 MG TABLET PO SCH (20:29)
[2018-10-19] MEDS: ATORVASTATIN 40 MG TABLET PO SCH (20:29)
[2018-10-19] MEDS: clonazePAM 0.5 MG TABLET PO SCH (20:29)
[2018-10-19] MEDS: MONTELUKAST 10 MG TABLET PO SCH (20:30)
[2018-10-19] MEDS: diphenhydrAMINE CAP 25 MG CAPSULE PO PRN (20:34)
[2018-10-19] MEDS: INSULIN LISPRO 100 UNIT/ML SUBCUT SCH (21:25)
[2018-10-20] MEDS: ALBUTEROL/IPRATROPIUM 3 ML NEB RESP TX SCH ×4 (00:46→19:15)
[2018-10-20] MEDS: methylPREDNISolone SOD SUC 40 MG/1 ML VIAL IV SCH ×2 (01:35→13:44)
[2018-10-20] MEDS: HEPARIN 5,000 UNIT/1 ML VIAL SUBCUT SCH ×3 (01:45→17:31)
[2018-10-20 05:17] LABS: Basophils % 0.1 % (0.0-0.8); Hematocrit 32.3 VOL% (35.7-47.0); Hemoglobin 10.6 GM/DL (12.0-16.0); Immature Granulocytes % 0.8 %; Immature Granulocytes Absolute 0.08 #; Lymphocytes # 0.4 10*3/uL (1.4-4.0); Lymphocytes % 3.3 % (21.3-54.2); Mean Corpuscular HGB Conc 32.8 GM/DL (32-36); Mean Corpuscular Hemoglobin 29 PG (27-34); Mean Corpuscular Volume 86.8 FL (87-102); Mean Platelet Volume 12.2 FL (9.6-12.0); Monocytes # 0.7 10*3/uL (0.11-0.8); Monocytes % 6.6 % (1.7-12.7); NRBC # 0.07 10*3/uL; Neutrophils # 9.4 10*3/uL (1.4-7.4); Neutrophils % 89.2 % (38.7-73.9); Platelet Count 93 T/CUMM (130-400); Red Blood Count 3.72 MC/CUMM (3.8-5.5); White Blood Count 10.5 T/CUMM (4-12)
[2018-10-20 05:35] LABS: Calcium 8.3 MG/DL (8.5-10.1); Potassium 4.4 MMOL/L (3.5-5.1)
[2018-10-20 05:43] LABS: Lymphocytes 4 % (20-55); Segmented Neutrophils 95 % (50-85); Total Cells Counted 100
[2018-10-20 05:44] LABS: Anisocytosis 1+; Hypochromasia 1+; Microcytosis 1+; Target Cells Few; Tear Drop Cells Slight
[2018-10-20 05:45] LABS: Ovalocytes Slight; Platelet Estimate Decreased
[2018-10-20] MEDS: GABAPENTIN 300 MG CAPSULE PO SCH ×2 (09:00→21:11)
[2018-10-20] MEDS: CALCIUM ACETATE 667 MG CAPSULE PO SCH ×3 (09:00→17:31)
[2018-10-20] MEDS: FLUTICASONE 50 MCG NASAL SPRAY 16 GM BOTTLE BOTH NARES SCH (09:00)
[2018-10-20] MEDS: levETIRAcetam 500 MG TABLET PO SCH (09:00)
[2018-10-20] MEDS: PANTOPRAZOLE 40 MG TABLET PO SCH ×2 (09:00→21:11)
[2018-10-20] MEDS: INSULIN LISPRO 100 UNIT/ML SUBCUT SCH ×4 (09:00→21:10)
[2018-10-20] MEDS: SERTRALINE 50 MG TABLET PO SCH (09:00)
[2018-10-20] MEDS ORDERED: DILTIAZEM 30 MG TABLET PO SCH (09:00)
[2018-10-20] MEDS ORDERED: METHYLPREDNISOLONE PO SCH (09:00)
[2018-10-20] MEDS ORDERED: predniSONE 10 MG TABLET PO SCH (09:00)
[2018-10-20] MEDS: ASCORBIC ACID 500 MG TABLET PO SCH (09:00)
[2018-10-20] MEDS: PIPERACILLIN/TAZOBACTAM 3,375 MG in SODIUM CHLORIDE 0.9% 100 ML IV SCH ×2 (13:44→21:18)
[2018-10-20] MEDS: DILTIAZEM 30 MG TABLET PO SCH ×2 (14:31→21:11)
[2018-10-20] MEDS: SIMETHICONE CHEW 80 MG TABLET PO PRN (16:18)
[2018-10-20] MEDS: ATORVASTATIN 40 MG TABLET PO SCH (21:10)
[2018-10-20] MEDS: ACETAMINOPHEN 325 MG TABLET PO PRN (21:11)
[2018-10-20] MEDS: TOPIRAMATE 25 MG TABLET PO SCH (21:11)
[2018-10-20] MEDS: MONTELUKAST 10 MG TABLET PO SCH (21:11)
[2018-10-20] MEDS: clonazePAM 0.5 MG TABLET PO SCH (21:11)
[2018-10-20] MEDS: diphenhydrAMINE CAP 25 MG CAPSULE PO PRN (21:11)
[2018-10-21] MEDS: ALBUTEROL/IPRATROPIUM 3 ML NEB RESP TX SCH ×4 (00:10→19:45)
[2018-10-21] MEDS: HEPARIN 5,000 UNIT/1 ML VIAL SUBCUT SCH ×4 (01:17→17:12)
[2018-10-21] MEDS: methylPREDNISolone SOD SUC 40 MG/1 ML VIAL IV SCH (01:17)
[2018-10-21 05:06] LABS: Basophils % 0.1 % (0.0-0.8); Hematocrit 31.5 VOL% (35.7-47.0); Hemoglobin 10.4 GM/DL (12.0-16.0); Immature Granulocytes % 0.6 %; Immature Granulocytes Absolute 0.06 #; Lymphocytes # 0.3 10*3/uL (1.4-4.0); Lymphocytes % 2.4 % (21.3-54.2); Mean Corpuscular Hemoglobin 29 PG (27-34); Mean Platelet Volume 10.6 FL (9.6-12.0); Monocytes # 0.5 10*3/uL (0.11-0.8); Monocytes % 4.7 % (1.7-12.7); NRBC # 0.05 10*3/uL; Neutrophils # 9.7 10*3/uL (1.4-7.4); Neutrophils % 92.2 % (38.7-73.9); Red Blood Count 3.58 MC/CUMM (3.8-5.5); Red Cell Distribution Width 18.4 % (9.3-17.3); White Blood Count 10.5 T/CUMM (4-12)
[2018-10-21 05:08] LABS: Platelet Count 84 T/CUMM (130-400)
[2018-10-21 05:31] LABS: Calcium 8.3 MG/DL (8.5-10.1); Potassium 4.5 MMOL/L (3.5-5.1)
[2018-10-21 06:00] LABS: Band Neutrophils 1 % (0-10); Hypochromasia 1+; Lymphocytes 3 % (20-55); Nucleated Red Blood Cells 1 (0-5); Ovalocytes Slight; Platelet Estimate Decreased; Segmented Neutrophils 94 % (50-85); Target Cells Few; Total Cells Counted 100
[2018-10-21 06:01] LABS: Microcytosis 1+
[2018-10-21] MEDS: INSULIN LISPRO 100 UNIT/ML SUBCUT SCH ×4 (07:55→21:21)
[2018-10-21] MEDS: ASCORBIC ACID 500 MG TABLET PO SCH (08:00)
[2018-10-21] MEDS: PANTOPRAZOLE 40 MG TABLET PO SCH ×2 (08:01→21:20)
[2018-10-21] MEDS: SERTRALINE 50 MG TABLET PO SCH (08:01)
[2018-10-21] MEDS: GABAPENTIN 300 MG CAPSULE PO SCH ×2 (08:01→21:17)
[2018-10-21] MEDS: DILTIAZEM 30 MG TABLET PO SCH (08:02)
[2018-10-21] MEDS: levETIRAcetam 500 MG TABLET PO SCH (08:03)
[2018-10-21] MEDS: CALCIUM ACETATE 667 MG CAPSULE PO SCH ×3 (08:04→17:08)
[2018-10-21] MEDS: PIPERACILLIN/TAZOBACTAM 3,375 MG in SODIUM CHLORIDE 0.9% 100 ML IV SCH ×2 (08:51→21:13)
[2018-10-21] MEDS: FLUTICASONE 50 MCG NASAL SPRAY 16 GM BOTTLE BOTH NARES SCH (08:55)
[2018-10-21] MEDS: INSULIN GLARGINE 100 UNIT/ML SUBCUT SCH (12:39)
[2018-10-21] MEDS ORDERED: TUBERCULIN SKIN TEST 0.1 ML SYRINGE INTRADERM ONE (13:00)
[2018-10-21] MEDS: DILTIAZEM 60 MG TABLET PO SCH ×2 (14:55→21:17)
[2018-10-21] MEDS: clonazePAM 0.5 MG TABLET PO SCH (21:16)
[2018-10-21] MEDS: diphenhydrAMINE CAP 25 MG CAPSULE PO PRN (21:16)
[2018-10-21] MEDS: MONTELUKAST 10 MG TABLET PO SCH (21:16)
[2018-10-21] MEDS: ATORVASTATIN 40 MG TABLET PO SCH (21:17)
[2018-10-21] MEDS: TOPIRAMATE 25 MG TABLET PO SCH (21:20)
[2018-10-22] MEDS: ALBUTEROL/IPRATROPIUM 3 ML NEB RESP TX SCH ×4 (00:41→18:52)
[2018-10-22] MEDS: HEPARIN 5,000 UNIT/1 ML VIAL SUBCUT SCH ×3 (02:39→17:36)
[2018-10-22 05:21] LABS: Basophils % 0.1 % (0.0-0.8); Hematocrit 33.4 VOL% (35.7-47.0); Hemoglobin 10.8 GM/DL (12.0-16.0); Immature Granulocytes % 0.9 %; Immature Granulocytes Absolute 0.13 #; Lymphocytes # 0.6 10*3/uL (1.4-4.0); Lymphocytes % 3.8 % (21.3-54.2); Mean Corpuscular HGB Conc 32.3 GM/DL (32-36); Mean Corpuscular Hemoglobin 29 PG (27-34); Mean Corpuscular Volume 89.5 FL (87-102); Mean Platelet Volume 11.8 FL (9.6-12.0); Monocytes # 1.5 10*3/uL (0.11-0.8); Monocytes % 10.3 % (1.7-12.7); NRBC # 0.07 10*3/uL; Neutrophils # 12.6 10*3/uL (1.4-7.4); Neutrophils % 84.9 % (38.7-73.9); Platelet Count 89 T/CUMM (130-400); Red Blood Count 3.73 MC/CUMM (3.8-5.5); Red Cell Distribution Width 18.7 % (9.3-17.3); White Blood Count 14.8 T/CUMM (4-12)
[2018-10-22 06:08] LABS: Lymphocytes 14 % (20-55); Nucleated Red Blood Cells 1 (0-5); Platelet Estimate Decreased; Segmented Neutrophils 86 % (50-85); Target Cells Few; Total Cells Counted 100
[2018-10-22 07:51] LABS: Calcium 8.2 MG/DL (8.5-10.1); Osmolality,Calculated 302.8 MOS/KG (273-304); Potassium 4.5 MMOL/L (3.5-5.1)
[2018-10-22] MEDS: CALCIUM ACETATE 667 MG CAPSULE PO SCH ×3 (08:36→17:32)
[2018-10-22] MEDS: INSULIN LISPRO 100 UNIT/ML SUBCUT SCH ×4 (08:36→22:02)
[2018-10-22] MEDS: INSULIN GLARGINE 100 UNIT/ML SUBCUT SCH (08:37)
[2018-10-22] MEDS: FLUTICASONE 50 MCG NASAL SPRAY 16 GM BOTTLE BOTH NARES SCH (08:41)
[2018-10-22] MEDS ORDERED: VANCOMYCIN INJ 500 MG in SODIUM CHLORIDE 0.9% 100 ML IV PRN (11:18)
[2018-10-22] MEDS ORDERED: VANCOMYCIN INJ 1,000 MG in SODIUM CHLORIDE 0.9% 250 ML IV SCH (11:30)
[2018-10-22] MEDS: PIPERACILLIN/TAZOBACTAM 3,375 MG in SODIUM CHLORIDE 0.9% 100 ML IV SCH ×2 (13:25→21:54)
[2018-10-22] MEDS: PANTOPRAZOLE 40 MG TABLET PO SCH ×2 (13:26→21:57)
[2018-10-22] MEDS: predniSONE 20 MG TABLET PO SCH (13:26)
[2018-10-22] MEDS: GABAPENTIN 300 MG CAPSULE PO SCH ×2 (13:26→21:57)
[2018-10-22] MEDS: ASCORBIC ACID 500 MG TABLET PO SCH (13:27)
[2018-10-22] MEDS: levETIRAcetam 500 MG TABLET PO SCH (13:27)
[2018-10-22] MEDS: DILTIAZEM 60 MG TABLET PO SCH ×3 (13:27→21:56)
[2018-10-22] MEDS: SERTRALINE 50 MG TABLET PO SCH (13:28)
[2018-10-22] MEDS ORDERED: VANCOMYCIN INJ 1,250 MG in SODIUM CHLORIDE 0.9% 250 ML IV ONE (15:00)
[2018-10-22] MEDS: MONTELUKAST 10 MG TABLET PO SCH (21:55)
[2018-10-22] MEDS: TOPIRAMATE 25 MG TABLET PO SCH (21:56)
[2018-10-22] MEDS: clonazePAM 0.5 MG TABLET PO SCH (21:56)
[2018-10-22] MEDS: ATORVASTATIN 40 MG TABLET PO SCH (21:57)
[2018-10-22] MEDS: diphenhydrAMINE CAP 25 MG CAPSULE PO PRN (21:57)
[2018-10-22] MEDS: ACETAMINOPHEN 325 MG TABLET PO PRN (22:01)
[2018-10-23] MEDS: ALBUTEROL/IPRATROPIUM 3 ML NEB RESP TX SCH ×3 (01:00→15:00)
[2018-10-23] MEDS: HEPARIN 5,000 UNIT/1 ML VIAL SUBCUT SCH ×2 (01:00→09:16)
[2018-10-23 03:41] LABS: Basophils % 0.1 % (0.0-0.8); Hematocrit 33.2 VOL% (35.7-47.0); Hemoglobin 10.6 GM/DL (12.0-16.0); Immature Granulocytes Absolute 0.11 #; Lymphocytes # 0.4 10*3/uL (1.4-4.0); Lymphocytes % 3.2 % (21.3-54.2); Mean Corpuscular HGB Conc 31.9 GM/DL (32-36); Mean Corpuscular Hemoglobin 29 PG (27-34); Mean Corpuscular Volume 89.7 FL (87-102); Mean Platelet Volume 12.1 FL (9.6-12.0); Monocytes # 0.6 10*3/uL (0.11-0.8); Monocytes % 5.5 % (1.7-12.7); NRBC # 0.03 10*3/uL; Neutrophils # 10.1 10*3/uL (1.4-7.4); Neutrophils % 90.2 % (38.7-73.9); Red Cell Distribution Width 18.4 % (9.3-17.3); White Blood Count 11.2 T/CUMM (4-12)
[2018-10-23 03:43] LABS: Platelet Count 73 T/CUMM (130-400)
[2018-10-23 03:56] LABS: Calcium 8.3 MG/DL (8.5-10.1); Potassium 4.2 MMOL/L (3.5-5.1)
[2018-10-23 04:06] LABS: Albumin 3.1 G/DL (3.4-5.0); Bilirubin,Direct 0.44 MG/DL (0.0-0.20); Bilirubin,Indirect 1.1 MG/DL (0.0-1.0); Bilirubin,Total 1.5 MG/DL (0.2-1.0); Total Protein 6.6 G/DL (6.4-8.3)
[2018-10-23 04:21] LABS: Lymphocytes 4 % (20-55); Segmented Neutrophils 91 % (50-85)
[2018-10-23 04:23] LABS: Ovalocytes 1+; Platelet Estimate Decreased; Target Cells Few; Total Cells Counted 100
[2018-10-23] MEDS: INSULIN LISPRO 100 UNIT/ML SUBCUT SCH ×2 (09:15→12:29)
[2018-10-23] MEDS: INSULIN GLARGINE 100 UNIT/ML SUBCUT SCH (09:16)
[2018-10-23] MEDS: ASCORBIC ACID 500 MG TABLET PO SCH (09:19)
[2018-10-23] MEDS: FLUTICASONE 50 MCG NASAL SPRAY 16 GM BOTTLE BOTH NARES SCH (09:19)
[2018-10-23] MEDS: PANTOPRAZOLE 40 MG TABLET PO SCH (09:20)
[2018-10-23] MEDS: DILTIAZEM 60 MG TABLET PO SCH ×2 (09:20→15:48)
[2018-10-23] MEDS: SERTRALINE 50 MG TABLET PO SCH (09:20)
[2018-10-23] MEDS: predniSONE 20 MG TABLET PO SCH (09:20)
[2018-10-23] MEDS: CALCIUM ACETATE 667 MG CAPSULE PO SCH ×2 (09:20→12:29)
[2018-10-23] MEDS: levETIRAcetam 500 MG TABLET PO SCH (09:21)
[2018-10-23] MEDS: PIPERACILLIN/TAZOBACTAM 3,375 MG in SODIUM CHLORIDE 0.9% 100 ML IV SCH (09:37)
[2018-10-23] MEDS: GABAPENTIN 300 MG CAPSULE PO SCH (09:41)
[2018-10-23 12:28] VITALS: BP 124/93
[2018-10-25 17:56] LABS: CDT Result Negative (Negative); CDT Specimen Source STOOL
== END 2018-10-23 16:30 | disposition home or self-care (01) | DRG 193 ==
LOC: N.ED 23:45 → N.2E 10-18 13:23 → SUATTDRO 10-18 13:31 → N.2E 10-18 13:31
PROVIDERS: ADMIT Internal Medicine; ATTEND Hospitalist

== ENCOUNTER 2018-11-14 03:05 | Inpatient (IN) ==
[2018-11-14] MEDS ORDERED: ALBUTEROL/IPRATROPIUM 3 ML NEB RESP TX STA (03:08)
[2018-11-14] MEDS ORDERED: methylPREDNISolone SOD SUC 125 MG/2 ML VIAL IV STA (03:09)
[2018-11-14] MEDS ORDERED: CEFEPIME 2,000 MG in SODIUM CHLORIDE 0.9% 100 ML IV STA (03:10)
[2018-11-14] MEDS ORDERED: VANCOMYCIN INJ 1,000 MG in SODIUM CHLORIDE 0.9% 250 ML IV STA (03:11)
[2018-11-14 04:13] LABS: Basophils # 0.1 10*3/uL (0.0-0.2); Basophils % 0.6 % (0.0-0.8); Eosinophils # 0.2 10*3/uL (0.0-0.87); Eosinophils % 1.4 % (0.00-10.9); Hematocrit 31.8 VOL% (35.7-47.0); Hemoglobin 9.8 GM/DL (12.0-16.0); Immature Granulocytes % 1.1 %; Immature Granulocytes Absolute 0.15 #; Lymphocytes # 0.9 10*3/uL (1.4-4.0); Lymphocytes % 6.1 % (21.3-54.2); Mean Corpuscular HGB Conc 30.8 GM/DL (32-36); Mean Corpuscular Hemoglobin 28 PG (27-34); Mean Corpuscular Volume 91.9 FL (87-102); Mean Platelet Volume 10.3 FL (9.6-12.0); Monocytes % 14.4 % (1.7-12.7); NRBC # 0.03 10*3/uL; Neutrophils # 10.7 10*3/uL (1.4-7.4); Neutrophils % 76.4 % (38.7-73.9); Platelet Count 300 T/CUMM (130-400); Red Blood Count 3.46 MC/CUMM (3.8-5.5); Red Cell Distribution Width 18.6 % (9.3-17.3); White Blood Count 14.1 T/CUMM (4-12)
[2018-11-14 04:15] LABS: VBG HCO3 19.4 MEQ/L (24-28); VBG Oxygen Saturation 94.9 %; VBG PCO2 56.8 MMHG (41-51); VBG PH 7.207; VBG PO2 89.2 MMHG (17-40)
[2018-11-14 04:44] LABS: Albumin 2.9 G/DL (3.4-5.0); Bilirubin,Total 1.4 MG/DL (0.2-1.0); Calcium 9.1 MG/DL (8.5-10.1); Osmolality,Calculated 284.2 MOS/KG (273-304); Total Protein 7.6 G/DL (6.4-8.3)
[2018-11-14] MEDS ORDERED: FUROSEMIDE 40 MG/4 ML VIAL IV STA (04:57)
[2018-11-14] MEDS ORDERED: ONDANSETRON 4 MG/2 ML VIAL IV PRN (06:00)
[2018-11-14] MEDS ORDERED: DEXTROSE 50% 25 GM/50 ML VIAL IV PRN (06:00)
[2018-11-14] MEDS ORDERED: GLUCAGON 1 MG VIAL IM PRN (06:00)
[2018-11-14] MEDS ORDERED: ACETAMINOPHEN 325 MG TABLET PO PRN (06:00)
[2018-11-14] MEDS ORDERED: SUMAtriptan 25 MG TABLET PO PRN (06:12)
[2018-11-14] MEDS ORDERED: NICOTINE 21 MG/24 HR PATCH TRANSDERM PRN (06:12)
[2018-11-14] MEDS ORDERED: POLYVINYL ALCOHOL 1.4% OPH SOLN 15 ML BOTTLE BOTH EYES PRN (06:12)
[2018-11-14] MEDS ORDERED: BENZONATATE 100 MG CAPSULE PO PRN (06:12)
[2018-11-14] MEDS ORDERED: ALBUTEROL 2.5 MG/3 ML NEB RESP TX PRN (06:12)
[2018-11-14] MEDS: ARFORMOTEROL 15 MCG/2 ML NEB RESP TX SCH ×2 (07:07→19:02)
[2018-11-14] MEDS: ENOXAPARIN 30 MG/0.3 ML SYRINGE SUBCUT SCH (07:30)
[2018-11-14] MEDS: INSULIN REGULAR 100 UNIT/ML SUBCUT SCH ×4 (07:30→22:40)
[2018-11-14] MEDS: DILTIAZEM 60 MG TABLET PO SCH ×3 (08:47→22:42)
[2018-11-14] MEDS: GABAPENTIN 300 MG CAPSULE PO SCH ×2 (08:47→22:41)
[2018-11-14] MEDS: SERTRALINE 50 MG TABLET PO SCH (08:47)
[2018-11-14] MEDS: CALCIUM ACETATE 667 MG CAPSULE PO SCH ×3 (08:47→17:33)
[2018-11-14] MEDS: ASCORBIC ACID 500 MG TABLET PO SCH (08:47)
[2018-11-14] MEDS: levETIRAcetam 500 MG TABLET PO SCH (08:47)
[2018-11-14] MEDS: PANTOPRAZOLE 40 MG TABLET PO SCH (08:47)
[2018-11-14] MEDS: rOPINIRole 0.25 MG TABLET PO SCH ×3 (08:48→22:43)
[2018-11-14] MEDS: FLUTICASONE 50 MCG NASAL SPRAY 16 GM BOTTLE BOTH NARES SCH (08:49)
[2018-11-14] MEDS: PIPERACILLIN/TAZOBACTAM 3,375 MG in SODIUM CHLORIDE 0.9% 100 ML IV SCH ×2 (10:07→21:55)
[2018-11-14] MEDS ORDERED: VANCOMYCIN INJ 500 MG in SODIUM CHLORIDE 0.9% 100 ML IV PRN (13:40)
[2018-11-14] MEDS: MONTELUKAST 10 MG TABLET PO SCH (22:42)
[2018-11-14] MEDS: ATORVASTATIN 40 MG TABLET PO SCH (22:42)
[2018-11-14] MEDS: clonazePAM 0.5 MG TABLET PO SCH (22:43)
[2018-11-14] MEDS: TOPIRAMATE 25 MG TABLET PO SCH (22:43)
[2018-11-15 05:40] LABS: Basophils % 0.1 % (0.0-0.8); Hematocrit 26.7 VOL% (35.7-47.0); Hemoglobin 8.6 GM/DL (12.0-16.0); Immature Granulocytes % 0.7 %; Immature Granulocytes Absolute 0.06 #; Lymphocytes # 0.6 10*3/uL (1.4-4.0); Lymphocytes % 6.7 % (21.3-54.2); Mean Corpuscular HGB Conc 32.2 GM/DL (32-36); Mean Corpuscular Hemoglobin 29 PG (27-34); Mean Corpuscular Volume 89.3 FL (87-102); Mean Platelet Volume 10.8 FL (9.6-12.0); Monocytes # 0.5 10*3/uL (0.11-0.8); Neutrophils # 7.1 10*3/uL (1.4-7.4); Neutrophils % 86.5 % (38.7-73.9); Platelet Count 248 T/CUMM (130-400); Red Blood Count 2.99 MC/CUMM (3.8-5.5); Red Cell Distribution Width 17.8 % (9.3-17.3); White Blood Count 8.2 T/CUMM (4-12)
[2018-11-15 05:55] LABS: Albumin 2.7 G/DL (3.4-5.0); Bilirubin,Total 1.2 MG/DL (0.2-1.0); Calcium 8.4 MG/DL (8.5-10.1); Osmolality,Calculated 286.4 MOS/KG (273-304); Potassium 4.6 MMOL/L (3.5-5.1); Total Protein 6.6 G/DL (6.4-8.3)
[2018-11-15] MEDS: ENOXAPARIN 30 MG/0.3 ML SYRINGE SUBCUT SCH (07:10)
[2018-11-15] MEDS: ARFORMOTEROL 15 MCG/2 ML NEB RESP TX SCH ×2 (07:20→19:28)
[2018-11-15] MEDS ORDERED: GABAPENTIN 600 MG TABLET ONE (07:25)
[2018-11-15] MEDS: rOPINIRole 0.25 MG TABLET PO SCH ×4 (07:29→21:49)
[2018-11-15] MEDS: levETIRAcetam 500 MG TABLET PO SCH ×2 (07:30→10:58)
[2018-11-15] MEDS: GABAPENTIN 300 MG CAPSULE PO SCH ×3 (07:53→21:49)
[2018-11-15] MEDS: INSULIN REGULAR 100 UNIT/ML SUBCUT SCH ×4 (11:02→21:45)
[2018-11-15] MEDS: DILTIAZEM 60 MG TABLET PO SCH ×3 (11:51→21:47)
[2018-11-15] MEDS: CALCIUM ACETATE 667 MG CAPSULE PO SCH ×3 (13:36→17:01)
[2018-11-15] MEDS: ASCORBIC ACID 500 MG TABLET PO SCH (13:41)
[2018-11-15] MEDS: SERTRALINE 50 MG TABLET PO SCH (13:42)
[2018-11-15] MEDS: PANTOPRAZOLE 40 MG TABLET PO SCH (13:43)
[2018-11-15] MEDS: FLUTICASONE 50 MCG NASAL SPRAY 16 GM BOTTLE BOTH NARES SCH (13:44)
[2018-11-15] MEDS: DORNASE ALFA 2.5 MG/2.5 ML VIAL RESP TX SCH (19:28)
[2018-11-15] MEDS: clonazePAM 0.5 MG TABLET PO SCH (21:47)
[2018-11-15] MEDS: MONTELUKAST 10 MG TABLET PO SCH (21:49)
[2018-11-15] MEDS: ATORVASTATIN 40 MG TABLET PO SCH (21:49)
[2018-11-15] MEDS: TOPIRAMATE 25 MG TABLET PO SCH (21:50)
[2018-11-16] MEDS: DORNASE ALFA 2.5 MG/2.5 ML VIAL RESP TX SCH (07:00)
[2018-11-16] MEDS: ARFORMOTEROL 15 MCG/2 ML NEB RESP TX SCH (07:01)
[2018-11-16 08:25] VITALS: BP 105/80
[2018-11-16] MEDS: CALCIUM ACETATE 667 MG CAPSULE PO SCH (09:06)
[2018-11-16] MEDS: rOPINIRole 0.25 MG TABLET PO SCH (09:06)
[2018-11-16] MEDS: ASCORBIC ACID 500 MG TABLET PO SCH (09:07)
[2018-11-16] MEDS: DILTIAZEM 60 MG TABLET PO SCH (09:07)
[2018-11-16] MEDS: GABAPENTIN 300 MG CAPSULE PO SCH (09:07)
[2018-11-16] MEDS: levETIRAcetam 500 MG TABLET PO SCH (09:08)
[2018-11-16] MEDS: PANTOPRAZOLE 40 MG TABLET PO SCH (09:08)
[2018-11-16] MEDS: SERTRALINE 50 MG TABLET PO SCH (09:08)
[2018-11-16] MEDS: INSULIN REGULAR 100 UNIT/ML SUBCUT SCH (09:17)
[2018-11-16] MEDS: FLUTICASONE 50 MCG NASAL SPRAY 16 GM BOTTLE BOTH NARES SCH (09:18)
[2018-11-16] MEDS: ENOXAPARIN 30 MG/0.3 ML SYRINGE SUBCUT SCH (09:18)
== END 2018-11-16 12:20 | disposition home health service (06) | DRG 11 ==
LOC: EDUNIT# → EDBD → N.ED 03:05 → N.EDINP 06:03 → N.2E 15:22
PROVIDERS: ADMIT Hospitalist; ATTEND Hospitalist

== ENCOUNTER 2018-11-17 08:22 | Observation (INO) ==
[2018-11-17] MEDS ORDERED: DILTIAZEM 50 MG/10 ML VIAL IV STA ×2 (09:16→10:00)
[2018-11-17 10:20] LABS: Basophils % 0.3 % (0.0-0.8); Eosinophils # 0.1 10*3/uL (0.0-0.87); Eosinophils % 0.4 % (0.00-10.9); Hematocrit 31.9 VOL% (35.7-47.0); Hemoglobin 10.1 GM/DL (12.0-16.0); Immature Granulocytes Absolute 0.45 #; Lymphocytes # 1.6 10*3/uL (1.4-4.0); Lymphocytes % 14.4 % (21.3-54.2); Mean Corpuscular HGB Conc 31.7 GM/DL (32-36); Mean Corpuscular Hemoglobin 29 PG (27-34); Mean Corpuscular Volume 90.9 FL (87-102); Mean Platelet Volume 10.5 FL (9.6-12.0); Monocytes # 1.6 10*3/uL (0.11-0.8); Monocytes % 14.4 % (1.7-12.7); NRBC # 0.07 10*3/uL; Neutrophils # 7.4 10*3/uL (1.4-7.4); Neutrophils % 66.5 % (38.7-73.9); Platelet Count 279 T/CUMM (130-400); Red Blood Count 3.51 MC/CUMM (3.8-5.5); Red Cell Distribution Width 18.5 % (9.3-17.3); White Blood Count 11.1 T/CUMM (4-12)
[2018-11-17 10:41] LABS: Bilirubin,Total 1.6 MG/DL (0.2-1.0); Osmolality,Calculated 283.1 MOS/KG (273-304); Potassium 3.5 MMOL/L (3.5-5.1); Total Protein 7.3 G/DL (6.4-8.3)
[2018-11-17] MEDS: dilTIAZem Drip 125 MG/125 ML PREMIX IV SCH ×2 (11:16→20:02)
[2018-11-17] MEDS ORDERED: traZODone 50 MG TABLET PO PRN (12:02)
[2018-11-17] MEDS ORDERED: DEXTROSE 50% 25 GM/50 ML VIAL IV PRN (12:02)
[2018-11-17] MEDS ORDERED: ZALEPLON 5 MG CAPSULE PO PRN (12:02)
[2018-11-17] MEDS ORDERED: GLUCAGON 1 MG VIAL IM PRN (12:02)
[2018-11-17] MEDS ORDERED: diphenhydrAMINE CAP 25 MG CAPSULE PO PRN (12:02)
[2018-11-17] MEDS ORDERED: LACTULOSE 20 GM/30 ML UDCUP PO PRN (12:02)
[2018-11-17] MEDS ORDERED: guaiFENesin/DM ER 600-30 MG TABLET PO PRN (12:02)
[2018-11-17] MEDS ORDERED: ALBUTEROL 2.5 MG/3 ML NEB RESP TX PRN (12:09)
[2018-11-17] MEDS ORDERED: BENZONATATE 100 MG CAPSULE PO PRN (12:09)
[2018-11-17] MEDS ORDERED: POLYVINYL ALCOHOL 1.4% OPH SOLN 15 ML BOTTLE BOTH EYES PRN (12:09)
[2018-11-17] MEDS ORDERED: SUMAtriptan 25 MG TABLET PO PRN (12:09)
[2018-11-17] MEDS ORDERED: POTASSIUM CHLORIDE 20 MEQ TABLET PO ONE (13:57)
[2018-11-17] MEDS: rOPINIRole 0.25 MG TABLET PO SCH ×2 (19:00→21:25)
[2018-11-17] MEDS: ASPIRIN EC 81 MG TABLET PO SCH (19:00)
[2018-11-17] MEDS: CALCIUM ACETATE 667 MG CAPSULE PO SCH (19:00)
[2018-11-17] MEDS: DORNASE ALFA 2.5 MG/2.5 ML VIAL RESP TX SCH (20:11)
[2018-11-17] MEDS: ARFORMOTEROL 15 MCG/2 ML NEB RESP TX SCH (20:11)
[2018-11-17] MEDS ORDERED: clonazePAM 0.5 MG TABLET PO SCH (21:00)
[2018-11-17] MEDS ORDERED: MONTELUKAST 10 MG TABLET PO SCH (21:00)
[2018-11-17] MEDS ORDERED: TOPIRAMATE 25 MG TABLET PO SCH (21:00)
[2018-11-17] MEDS ORDERED: DILTIAZEM 60 MG TABLET PO SCH (21:00)
[2018-11-17] MEDS ORDERED: ATORVASTATIN 40 MG TABLET PO SCH (21:00)
[2018-11-17] MEDS: GABAPENTIN 300 MG CAPSULE PO SCH (21:25)
[2018-11-17] MEDS: DILTIAZEM 60 MG TABLET PO SCH (21:26)
[2018-11-17] MEDS: PANTOPRAZOLE 40 MG TABLET PO SCH (21:29)
[2018-11-17] MEDS: ASCORBIC ACID 500 MG TABLET PO SCH (21:29)
[2018-11-17] MEDS: DOCUSATE SODIUM 100 MG CAPSULE PO SCH (21:29)
[2018-11-17] MEDS: ACETAMINOPHEN 325 MG TABLET PO PRN (21:35)
[2018-11-18 06:18] LABS: Basophils % 0.4 % (0.0-0.8); Eosinophils # 0.1 10*3/uL (0.0-0.87); Eosinophils % 1.3 % (0.00-10.9); Hematocrit 28.9 VOL% (35.7-47.0); Hemoglobin 8.9 GM/DL (12.0-16.0); Immature Granulocytes Absolute 0.39 #; Lymphocytes # 1.4 10*3/uL (1.4-4.0); Lymphocytes % 14.3 % (21.3-54.2); Mean Corpuscular HGB Conc 30.8 GM/DL (32-36); Mean Corpuscular Hemoglobin 28 PG (27-34); Mean Corpuscular Volume 91.7 FL (87-102); Monocytes # 1.8 10*3/uL (0.11-0.8); NRBC # 0.05 10*3/uL; Neutrophils # 6.1 10*3/uL (1.4-7.4); Platelet Count 233 T/CUMM (130-400); Red Blood Count 3.15 MC/CUMM (3.8-5.5); Red Cell Distribution Width 18.2 % (9.3-17.3); White Blood Count 9.8 T/CUMM (4-12)
[2018-11-18] MEDS: DILTIAZEM 60 MG TABLET PO SCH (06:24)
[2018-11-18 06:54] LABS: Eosinophils 3 % (0-10); Lymphocytes 17 % (20-55); Platelet Estimate Normal; Segmented Neutrophils 61 % (50-85); Total Cells Counted 100
[2018-11-18 06:55] LABS: Albumin 2.8 G/DL (3.4-5.0); Bilirubin,Total 1.2 MG/DL (0.2-1.0); Calcium 8.7 MG/DL (8.5-10.1); Potassium 3.8 MMOL/L (3.5-5.1); Total Protein 6.6 G/DL (6.4-8.3)
[2018-11-18] MEDS: ARFORMOTEROL 15 MCG/2 ML NEB RESP TX SCH (08:31)
[2018-11-18] MEDS: DORNASE ALFA 2.5 MG/2.5 ML VIAL RESP TX SCH (08:31)
[2018-11-18] MEDS ORDERED: ASCORBIC ACID 500 MG TABLET PO SCH (09:00)
[2018-11-18] MEDS ORDERED: FLUTICASONE 50 MCG NASAL SPRAY 16 GM BOTTLE BOTH NARES SCH (09:00)
[2018-11-18] MEDS ORDERED: SERTRALINE 50 MG TABLET PO SCH (09:00)
[2018-11-18] MEDS ORDERED: levETIRAcetam 500 MG TABLET PO SCH (09:00)
[2018-11-18] MEDS: ASCORBIC ACID 500 MG TABLET PO SCH (09:30)
[2018-11-18] MEDS: PANTOPRAZOLE 40 MG TABLET PO SCH (09:30)
[2018-11-18] MEDS: rOPINIRole 0.25 MG TABLET PO SCH (09:31)
[2018-11-18] MEDS: GABAPENTIN 300 MG CAPSULE PO SCH (09:31)
[2018-11-18] MEDS: CALCIUM ACETATE 667 MG CAPSULE PO SCH ×2 (09:31→13:09)
[2018-11-18] MEDS: ASPIRIN EC 81 MG TABLET PO SCH (09:32)
[2018-11-18] MEDS: DOCUSATE SODIUM 100 MG CAPSULE PO SCH (09:32)
[2018-11-18] MEDS: ACETAMINOPHEN 325 MG TABLET PO PRN (09:36)
[2018-11-18] MEDS ORDERED: POTASSIUM CHLORIDE 20 MEQ TABLET PO ONE (10:42)
[2018-11-18 12:03] VITALS: BP 120/81
[2018-11-18] MEDS: dilTIAZem Drip 125 MG/125 ML PREMIX IV SCH (13:05)
== END 2018-11-18 14:31 | disposition home or self-care (01) ==
LOC: EDBD → EDUNIT# → N.EDINP 08:22 → N.ED 08:22 → N.TELEN 12:25
PROVIDERS: ADMIT Hospitalist; ATTEND Hospitalist